=== PATIENT | male | born 1935 | race Caucasian/White ===

== ENCOUNTER 2016-12-27 22:09 | Inpatient (IN) | payer MEDICARE, BC ==
--- NOTE | 2016-12-27 23:22 | EDM.PDOC ---
ED HISTORY OF PRESENT ILLNESS - General Chief Complaint: Respiratory Problem Stated Complaint: [facility] Time Seen by Provider: 12/27/16 22:29 Source of Information: Reports: Patient, Family (), RN notes reviewed History Limitations: Reports: No limitations - History of Present Illness INITIAL COMMENTS - FREE TEXT/NARRATIVE: The patient states that he has had a cough productive of a cream-colored sputum all day today. He has been feeling short of breath. He developed generalized weakness this afternoon, chills around 17:30, but no fever. He then developed nausea with emesis around 19:00 to 19:30. No recent constipation, diarrhea, or urinary symptoms. He denies abdominal pain and chest pain. The patient was seen by his Supervisor [employer], Dr. Stella Riley, yesterday and was told that everything is okay. The patient is up to date on his vaccines, including influenza and pneumonia vaccines. - Related Data Allergies/ADRs: Allergies Allergy/AdvReac Type Severity Reaction Status Date / Time No Known Allergies Allergy Verified 11/20/16 16:39 Home Meds: Home Meds Acetaminophen/Diphenhydramine [Tylenol Pm Ex-Strength Caplet] 2 tab PO BEDTIME 02/27/15 [History] Albuterol [Ventolin HFA] 1 puff INH BID 02/27/15 [History] Carvedilol [Coreg] 12.5 mg PO BID 02/27/15 [History] Ezetimibe [Zetia] 10 mg PO DAILY 02/27/15 [History] Omeprazole 20 mg PO DAILY 02/27/15 [History] Pravastatin [Pravachol] 40 mg PO DAILY 02/27/15 [History] Albuterol Sulfate [Proair Hfa] 2 puff IH DAILY PRN 11/20/16 [History] Budesonide [Pulmicort] 0.5 mg IH BID 11/20/16 [History] Flecainide [Tambocor] 100 mg PO BID 11/20/16 [History] Warfarin [Coumadin] 1 mg PO SUTUWETHSA 11/20/16 [History] Warfarin [Coumadin] 2.5 mg PO MOFR 11/20/16 [History] Fluticasone Propionate [Flovent] 2 puff INH DAILY 12/27/16 [History] Umeclidinium [place] [Incruse Ellipta] 62.5 mcg PO DAILY 12/27/16 [History] Past Medical History HEENT History: Reports: Allergic rhinitis Other HEENT History: Wears glasss. Cardiovascular History: Reports: Afib, High cholesterol Gastrointestinal History: Reports: GERD Oncologic (Cancer) History: Reports: Lung - Past Surgical History Respiratory Surgical History: Reports: Lung Resection (Left upper lobectomy around 2004) Social & Family History - Tobacco Use Smoking Status *Q: Former Smoker Years of Tobacco use: 56 Packs/Tins Daily: 2 Month Tobacco Last Used: 2004 - Caffeine Use Caffeine Use: Reports: None - Alcohol Use Alcohol Use History: No - Recreational Drug Use Recreational Drug Use: No - Living Situation & Occupation Living situation: Reports: , with spouse Occupation: retired ED ROS GENERAL - Review of Systems Review Of Systems: See Below Constitutional: Reports: no symptoms HEENT: Reports: No symptoms Respiratory: Reports: No Symptoms Cardiovascular: Reports: No symptoms Endocrine: Reports: no symptoms GI/Abdominal: Reports: No symptoms : Reports: no symptoms Musculoskeletal: Reports: no symptoms Skin: Reports: no symptoms Neurological: Reports: No Symptoms Psychiatric: Reports: No symptoms Hematologic/Lymphatic: Reports: no symptoms Immunologic: Reports: no symptoms ED EXAM, GENERAL - Physical Exam Exam: See Below Exam Limited By: No limitations General Appearance: alert, WD/WN, no apparent distress, other (Appears tired. Falls asleep frequently.) Eye Exam: bilateral eye: EOMI, normal inspection Ears: normal external exam, hearing grossly normal Ear Exam: bilateral ear: auricle normal Nose: normal inspection, no blood Throat/Mouth: Normal inspection, Normal lips, Normal voice, No airway compromise Head: atraumatic, normocephalic Neck: normal inspection, full range of motion Respiratory/Chest: no respiratory distress, no accessory muscle use, chest non- tender, decreased breath sounds, rhonchi (bibasilar). No: crackles, wheezing Cardiovascular: normal peripheral pulses, regular rate, rhythm, no edema, no gallop, no JVD, no murmur, no rub, tachycardia Peripheral Pulses: 4+: radial (L), radial (R) GI/Abdominal: normal bowel sounds, soft, non tender, no organomegaly, no distention, no abnormal bruit, no mass Back Exam: normal inspection, full range of motion, NT Extremities: normal inspection, normal range of motion, non-tender, normal capillary refill, no pedal edema Neurological: alert, oriented, normal cognition, no motor/sensory deficits Psychiatric: normal affect Skin Exam: Warm, Dry, Intact, Normal color, No rash Lymphatic: no adenopathy EKG INTERPRETATION EKG Date: 12/27/16 Time: 23:11 Rhythm: a-flutter (A-fib/flutter, mostly 2:1) Rate (beats/min): 125 [place]: LAD-left axis deviation P-wave: present QRS: other (RBBB and LAFB) ST-T: normal QT: prolonged (QTc 528 ms) Comparison: no change (11/20/2016) Course - Vital Signs Last Recorded V/S: Last Vital Signs Temp 36.7 C 12/27/16 22:18 Pulse 118 H 12/27/16 23:52 Resp 22 H 12/27/16 22:18 BP 127/94 H 12/27/16 23:52 Pulse Ox 88 L 12/27/16 22:18 - Orders/Labs/Meds Orders: Active Orders 24 hr Category Date Time Status EKG Documentation Completion [RC] STAT Care 12/27/16 22:59 Active Chest 2V [CR] Stat Exams 12/27/16 22:48 Taken CULTURE BLOOD [BC] Stat Lab 12/27/16 23:22 Received CULTURE BLOOD [BC] Stat Lab 12/27/16 23:35 Received Diltiazem [Cardizem] 100 mg Med 12/27/16 23:30 Active Sodium Chloride 0.9% [Normal Saline] 100 ml IV TITRATE Sodium Chloride 0.9% [Normal Saline] 1,000 ml Med 12/27/16 23:45 Active IV ASDIRECTED Medication Orders Diltiazem HCl 100 mg/ Sodium (Chloride) 100 mls @ 10 mls/hr IV TITRATE ANIKA; 10 MG/HR PRN Reason: Protocol Last Admin: 12/27/16 23:52 Dose: 10 mg/hr, 10 mls/hr Sodium Chloride (Normal Saline) 1,000 mls @ 100 mls/hr IV ASDIRECTED ANIKA Last Admin: 12/27/16 23:51 Dose: 100 mls/hr Labs: Laboratory Tests 12/27/16 12/27/16 12/27/16 Range/Units 22:58 23:22 23:22 WBC 15.81 H (4.23-9.07) K/mm3 RBC 5.25 (4.63-6.08) M/mm3 Hgb 15.4 (13.7-17.5) gm/L Hct 46.5 (40.1-51.0) % MCV 88.6 (79.0-92.2) fl MCH 29.3 (25.7-32.2) pg MCHC 33.1 (32.2-35.5) g/dl RDW Std Deviation 47.6 H (35.1-43.9) fL Plt Count 190 (163-337) K/mm3 MPV 8.4 L (9.4-12.3) fl Neutrophils % (Manual) 76 H (40-60) % Band Neutrophils % 9 (0-10) % Lymphocytes % (Manual) 5 L (20-40) % Atypical Lymphs % 3 % Monocytes % (Manual) 7 (2-10) % Eosinophils % (Manual) 0 L (0.8-7.0) % Basophils % (Manual) 0 L (0.2-1.2) Toxic Granulation Few Platelet Estimate Adequate Plt Morphology Comment Normal RBC Morph Comment Normal PT (8.0-13.0) SECONDS INR Puncture Site Lt radial ABG pH 7.43 (7.35-7.45) ABG pCO2 34.6 L (35.0-45.0) mmHg ABG pO2 52.0 L (80.0-100.0) mmHg ABG HCO3 22.7 (22.0-26.0) meq/L ABG O2 Saturation 90.3 L (96.0-97.0) % ABG Base Excess -0.4 (-2-2.0) Henry Test Positive O2 Delivery Device Room air Sodium 138 (136-145) mEq/L Potassium 4.1 (3.5-5.1) mEq/L Chloride 103 (98-107) mEq/L Carbon Dioxide 26 (21-32) mEq/L Anion Gap 13.1 (5-15) BUN 18 (7-18) mg/dL Creatinine 1.4 H (0.7-1.3) mg/dL Est Cr Clr Drug Dosing 46.96 mL/min Estimated GFR (MDRD) 49 (>60) mL/min BUN/Creatinine Ratio 12.9 L (14-18) Glucose 121 H (83-115) mg/dL Lactic Acid (0.4-2.0) mmol/L Calcium 9.2 (8.5-10.1) mg/dL Total Bilirubin 0.5 (0.2-1.0) mg/dL AST 21 (15-37) U/L ALT 24 (16-63) U/L Alkaline Phosphatase 105 (46-116) U/L Troponin I < 0.017 (0.00-0.056) ng/mL C-Reactive Protein (<1.0) mg/dL B-Natriuretic Peptide (0-100) pg/mL Total Protein 7.9 (6.4-8.2) g/dl Albumin 4.1 (3.4-5.0) g/dl Globulin 3.8 gm/dL Albumin/Globulin Ratio 1.1 (1-2) Urine Color (Yellow) Urine Appearance (Clear) Urine pH (5.0-8.0) Ur Specific [place] (1.005-1.030) Urine Protein (Negative) Urine Glucose (UA) (Negative) Urine Ketones (Negative) Urine Occult Blood (Negative) Urine Nitrite (Negative) Urine Bilirubin (Negative) Urine Urobilinogen (0.2-1.0) Ur Leukocyte Esterase (Negative) Urine RBC (0-5) /hpf Urine WBC (0-5) /hpf Ur Epithelial Cells (0-5) /hpf Urine Bacteria (FEW) /hpf Hyaline Casts (0-5) /lpf Urine Mucus (FEW) /hpf Urine Yeast (NOT SEEN) 12/27/16 12/27/16 12/27/16 Range/Units 23:22 23:22 23:22 WBC (4.23-9.07) K/mm3 RBC (4.63-6.08) M/mm3 Hgb (13.7-17.5) gm/L Hct (40.1-51.0) % MCV (79.0-92.2) fl MCH (25.7-32.2) pg MCHC (32.2-35.5) g/dl RDW Std Deviation (35.1-43.9) fL Plt Count (163-337) K/mm3 MPV (9.4-12.3) fl Neutrophils % (Manual) (40-60) % Band Neutrophils % (0-10) % Lymphocytes % (Manual) (20-40) % Atypical Lymphs % % Monocytes % (Manual) (2-10) % Eosinophils % (Manual) (0.8-7.0) % Basophils % (Manual) (0.2-1.2) Toxic Granulation Platelet Estimate Plt Morphology Comment RBC Morph Comment PT 22.2 H (8.0-13.0) SECONDS INR 1.95 Puncture Site ABG pH (7.35-7.45) ABG pCO2 (35.0-45.0) mmHg ABG pO2 (80.0-100.0) mmHg ABG HCO3 (22.0-26.0) meq/L ABG O2 Saturation (96.0-97.0) % ABG Base Excess (-2-2.0) Henry Test O2 Delivery Device Sodium (136-145) mEq/L Potassium (3.5-5.1) mEq/L Chloride (98-107) mEq/L Carbon Dioxide (21-32) mEq/L Anion Gap (5-15) BUN (7-18) mg/dL Creatinine (0.7-1.3) mg/dL Est Cr Clr Drug Dosing mL/min Estimated GFR (MDRD) (>60) mL/min BUN/Creatinine Ratio (14-18) Glucose (83-115) mg/dL Lactic Acid (0.4-2.0) mmol/L Calcium (8.5-10.1) mg/dL Total Bilirubin (0.2-1.0) mg/dL AST (15-37) U/L ALT (16-63) U/L Alkaline Phosphatase (46-116) U/L Troponin I (0.00-0.056) ng/mL C-Reactive Protein 1.6 H* (<1.0) mg/dL B-Natriuretic Peptide 198 H (0-100) pg/mL Total Protein (6.4-8.2) g/dl Albumin (3.4-5.0) g/dl Globulin gm/dL Albumin/Globulin Ratio (1-2) Urine Color (Yellow) Urine Appearance (Clear) Urine pH (5.0-8.0) Ur Specific [place] (1.005-1.030) Urine Protein (Negative) Urine Glucose (UA) (Negative) Urine Ketones (Negative) Urine Occult Blood (Negative) Urine Nitrite (Negative) Urine Bilirubin (Negative) Urine Urobilinogen (0.2-1.0) Ur Leukocyte Esterase (Negative) Urine RBC (0-5) /hpf Urine WBC (0-5) /hpf Ur Epithelial Cells (0-5) /hpf Urine Bacteria (FEW) /hpf Hyaline Casts (0-5) /lpf Urine Mucus (FEW) /hpf Urine Yeast (NOT SEEN) 12/27/16 12/28/16 Range/Units 23:22 00:35 WBC (4.23-9.07) K/mm3 RBC (4.63-6.08) M/mm3 Hgb (13.7-17.5) gm/L Hct (40.1-51.0) % MCV (79.0-92.2) fl MCH (25.7-32.2) pg MCHC (32.2-35.5) g/dl RDW Std Deviation (35.1-43.9) fL Plt Count (163-337) K/mm3 MPV (9.4-12.3) fl Neutrophils % (Manual) (40-60) % Band Neutrophils % (0-10) % Lymphocytes % (Manual) (20-40) % Atypical Lymphs % % Monocytes % (Manual) (2-10) % Eosinophils % (Manual) (0.8-7.0) % Basophils % (Manual) (0.2-1.2) Toxic Granulation Platelet Estimate Plt Morphology Comment RBC Morph Comment PT (8.0-13.0) SECONDS INR Puncture Site ABG pH (7.35-7.45) ABG pCO2 (35.0-45.0) mmHg ABG pO2 (80.0-100.0) mmHg ABG HCO3 (22.0-26.0) meq/L ABG O2 Saturation (96.0-97.0) % ABG Base Excess (-2-2.0) [place] Test O2 Delivery Device Sodium (136-145) mEq/L Potassium (3.5-5.1) mEq/L Chloride (98-107) mEq/L Carbon Dioxide (21-32) mEq/L Anion Gap (5-15) BUN (7-18) mg/dL Creatinine (0.7-1.3) mg/dL Est Cr Clr Drug Dosing mL/min Estimated GFR (MDRD) (>60) mL/min BUN/Creatinine Ratio (14-18) Glucose (83-115) mg/dL Lactic Acid 0.8 (0.4-2.0) mmol/L Calcium (8.5-10.1) mg/dL Total Bilirubin (0.2-1.0) mg/dL AST (15-37) U/L ALT (16-63) U/L Alkaline Phosphatase (46-116) U/L Troponin I (0.00-0.056) ng/mL C-Reactive Protein (<1.0) mg/dL B-Natriuretic Peptide (0-100) pg/mL Total Protein (6.4-8.2) g/dl Albumin (3.4-5.0) g/dl Globulin gm/dL Albumin/Globulin Ratio (1-2) Urine Color Yellow (Yellow) Urine Appearance Clear (Clear) Urine pH 6.0 (5.0-8.0) Ur Specific [place] 1.025 (1.005-1.030) Urine Protein 2+ H (Negative) Urine Glucose (UA) Negative (Negative) Urine Ketones Negative (Negative) Urine Occult Blood 2+ H (Negative) Urine Nitrite Negative (Negative) Urine Bilirubin Negative (Negative) Urine Urobilinogen 0.2 (0.2-1.0) Ur Leukocyte Esterase Negative (Negative) Urine RBC 5-10 H (0-5) /hpf Urine WBC Not seen (0-5) /hpf Ur Epithelial Cells 0-5 (0-5) /hpf Urine Bacteria Few (FEW) /hpf Hyaline Casts 0-5 (0-5) /lpf Urine Mucus Not seen (FEW) /hpf Urine Yeast Not seen (NOT SEEN) Meds: Medications Generic Name Dose Route Start Last Admin Trade Name Freq PRN Reason Stop Dose Admin Diltiazem HCl 100 mg/ Sodium 100 mls @ 10 mls/hr 12/27/16 23:30 12/27/16 23: 52 Chloride IV 10 mg/hr TITRATE ANIKA 10 mls/hr Protocol Administration 10 MG/HR Sodium Chloride 1,000 mls @ 100 mls/hr 12/27/16 23:45 12/27/16 23:51 Normal Saline IV 100 mls/hr ASDIRECTED ANIKA Administration Discontinued Medications Generic Name Dose Route Start Last Admin Trade Name Freq PRN Reason Stop Dose Admin Diltiazem HCl 10 mg 12/27/16 23:25 12/27/16 23:48 Diltiazem IVPUSH 12/27/16 23:26 10 mg ONETIME STA Administration Azithromycin 500 mg/ Sodium 250 mls @ 250 mls/hr 12/27/16 23:56 12/28/16 00: 44 Chloride IV 12/28/16 00:55 250 mls/hr ONETIME ONE Administration Ceftriaxone Sodium 2 gm/ 100 mls @ 200 mls/hr 12/27/16 23:54 12/28/16 00:11 Sodium Chloride IV 12/28/16 00:23 200 mls/hr ONETIME ONE Administration - Radiology Interpretation Free Text/Narrative:: Two-view chest radiograph reviewed. Cardiac silhouette is within normal limits. No pulmonary vascular congestion. No pleural effusions. No pneumothorax. There appears to be an infiltrate at the left base and, although this could be scarring or atelectasis, as a less intense opacity is seen on a prior portable chest radiograph dated 11/20/2016. Formal read per the Radiologist pending. - Re-Assessments/Exams Free Text/Narrative Re-Assessment/Exam: 12/27/16 23:30 The patient's ECG appears to demonstrate atrial fibrillation/flutter, mostly 2:1 , at 125 beats per minute. I have ordered a Cardizem IVP 10 mg and a Cardizem drip at 10 mg per hour. 12/27/16 23:37 The patient's ABG indicates a combined respiratory alkalosis and metabolic acidosis. 12/27/16 23:54 Given the possible left lower lobe pulmonary infiltrate, I will start the patient on Rocephin and azithromycin. Levaquin is contraindicated, as the patient is on flecainide, and his QTc is already prolonged. 12/28/16 00:09 The patient's WBC count is elevated at 15.81 with 9% bandemia. This is consistent with a bacterial infection. 12/28/16 01:16 Test results discussed with the patient and his . The patient most likely has left lower lobe pneumonia, and is also an interferential/atrial flutter. His heart rate is responding nicely to the Cardizem, however, the patient will require ICU admission. They're agreeable. 12/28/16 01:[address] Sanders. He agrees to admitting the patient to the ICU. He asks that I write bridge orders. Departure - Departure Time of Disposition: 01:18 Disposition: Admitted As Inpatient 68 Condition: fair Clinical Impression: Left lower lobe pneumonia, Atrial fibrillation and flutter - My Orders Last 24 Hours: My Active Orders 12/27/16 22:48 Chest 2V [CR] Stat 12/27/16 22:59 EKG Documentation Completion [RC] STAT 12/27/16 23:22 CULTURE BLOOD [BC] Stat 12/27/16 23:30 Diltiazem [Cardizem] 100 mg Sodium Chloride 0.9% [Normal Saline] 100 ml IV TITRATE 12/27/16 23:35 CULTURE BLOOD [BC] Stat 12/27/16 23:45 Sodium Chloride 0.9% [Normal Saline] 1,000 ml IV ASDIRECTED - Assessment/Plan Last 24 Hours: My Active Orders 12/27/16 22:48 Chest 2V [CR] Stat 12/27/16 22:59 EKG Documentation Completion [RC] STAT 12/27/16 23:22 CULTURE BLOOD [BC] Stat 12/27/16 23:30 Diltiazem [Cardizem] 100 mg Sodium Chloride 0.9% [Normal Saline] 100 ml IV TITRATE 12/27/16 23:35 CULTURE BLOOD [BC] Stat 12/27/16 23:45 Sodium Chloride 0.9% [Normal Saline] 1,000 ml IV ASDIRECTED
[2016-12-27] MEDS ORDERED: Diltiazem 25 MG/5 ML SDV IVPUSH STA (23:25)
[2016-12-27] MEDS ORDERED: Diltiazem 100 MG in Sodium Chloride 0.9% 100 ML IV SCH (23:30)
[2016-12-27] MEDS ORDERED: Sodium Chloride 0.9% 1,000 ML IV SCH (23:45)
[2016-12-27] MEDS ORDERED: cefTRIAXone 2 GM in Sodium Chloride 0.9% 100 ML IV ONE (23:54)
[2016-12-27] MEDS ORDERED: Azithromycin 500 MG in Sodium Chloride 0.9% 250 ML IV ONE (23:56)
--- NOTE | 2016-12-28 07:00 | CR ---
Chest: Two views of the chest were obtained. Comparison: Previous chest x-ray of 11/20/16. Increasing density within the left base from prior exam. Lungs otherwise are clear. Heart size and mediastinum are normal. Bony structures are unremarkable for the patient's age. Impression: 1. Increased density within the left lung base. Differential includes pneumonia as well as aspiration. Diagnostic code #3
--- NOTE | 2016-12-28 07:03 | PCM.HP ---
H&P History of Present Illness - General Date of Service: 12/28/16 Admit Problem/Dx: Admission Diagnosis/Problem Admission Diagnosis/Problem Atrial flutter Source of Information: Patient, Family, Old records, Provider, RN notes reviewed History Limitations: Reports: No limitations - History of Present Illness Initial Comments - Free Text/Narative: This is a 81 yo elderly white male with past medical hx/o AR, Chronic Atrial Fibrillation on Warfarin, HLD, GERD and Hx/o Left Upper Lung Lobectomy in 2004 who comes in with complaints of shortness of breath associated with productive cough that is cream-like in colored. He also admits to some generalized weakness , nausea and vomiting but w/o fever or chills. Patient follows Dr. Riley for his lung care. His most recent epsiode of pneumonia was back around this past . He is current on his shots to include influenza and pneumoccocal vaccines. On presentation to ED patient was found in afib-rvr with heart rate as high as 130s. Her initial work up in ED shows a CBC remarkable for WBC 15.81 with 9% Bands. His INR is 1.95. His chemistry is significant for Cr 1.4, BS 121, CRP 1.6 and BNP 198. UA is unimpressive for UTI. His CXR shows increased opacification at the left lung base. Patient is full code. - Related Data Allergies/Adverse Reactions: Allergies Allergy/AdvReac Type Severity Reaction Status Date / Time No Known Allergies Allergy Verified 11/20/16 16:39 Home Medications: Home Meds Acetaminophen/Diphenhydramine [Tylenol Pm Ex-Strength Caplet] 2 tab PO BEDTIME 02/27/15 [History] Albuterol [Ventolin HFA] 1 puff INH BID 02/27/15 [History] Carvedilol [Coreg] 12.5 mg PO BID 02/27/15 [History] Ezetimibe [Zetia] 10 mg PO DAILY 02/27/15 [History] Omeprazole 20 mg PO DAILY 02/27/15 [History] Pravastatin [Pravachol] 40 mg PO DAILY 02/27/15 [History] Albuterol Sulfate [Proair Hfa] 2 puff IH DAILY PRN 11/20/16 [History] Budesonide [Pulmicort] 0.5 mg IH BID 11/20/16 [History] Flecainide [Tambocor] 100 mg PO BID 11/20/16 [History] Warfarin [Coumadin] 1 mg PO SUTUWETHSA 11/20/16 [History] Warfarin [Coumadin] 2.5 mg PO MOFR 11/20/16 [History] Fluticasone Propionate [Flovent] 2 puff INH DAILY 12/27/16 [History] Umeclidinium [place] [Incruse Ellipta] 62.5 mcg PO DAILY 12/27/16 [History] Past Medical History HEENT History: Reports: Allergic rhinitis Other HEENT History: Wears glasss. Cardiovascular History: Reports: Afib, High cholesterol Gastrointestinal History: Reports: GERD Oncologic (Cancer) History: Reports: Lung - Infectious Disease History Infectious Disease History: Reports: Chicken pox, Measles - Past Surgical History Respiratory Surgical History: Reports: Lung Resection Other Respiratory Surgeries/Procedures: L upper lobectomy Social & Family History - Family History Family Medical History: Noncontributory - Tobacco Use Smoking Status *Q: Former Smoker Years of Tobacco use: 54 Packs/Tins Daily: 2 Used Tobacco, but Quit: Yes Month Tobacco Last Used: 2004 Second Hand Smoke Exposure: Yes - Caffeine Use Caffeine Use: Reports: Coffee - Recreational Drug Use Recreational Drug Use: No - Living Situation & Occupation Living situation: Reports: , with spouse Occupation: retired H&P Review of Systems - Review of Systems: Review Of Systems: ROS reveals no pertinent complaints other than HPI. Exam - Exam Exam: See Below - Vital Signs Vital Signs: Last Vital Signs Temp 36.8 C 12/28/16 02:38 Pulse 118 H 12/27/16 23:52 Resp 25 H 12/28/16 07:00 BP 95/48 L 12/28/16 07:00 Pulse Ox 98 12/28/16 07:00 Weight: 93.758 kg - Exam General: alert, oriented, cooperative. No: mild distress HEENT: Conjunctiva clear, EACs clear, EOMI, Hearing intact, Mucosa moist & pink , Nares patent, Normal nasal septum, Posterior pharynx clear, Pupils equal, Pupils reactive Neck: supple, trachea midline, 2+ carotid pulse wo bruit, full range of motion Lungs: Normal respiratory effort, Decreased breath sounds Cardiovascular: irregular rhythm Abdomen: normal bowel sounds, soft. No: organomegaly (Male) Exam: Deferred Rectal (Males) Exam: Deferred Back Exam: normal inspection, decreased range of motion Extremities: normal inspection, normal pulses. No: clubbing, cyanosis, calf tenderness, edema Peripheral Pulses: 2+: dorsalis pedis (L), dorsalis pedis (R) Skin: warm, dry, intact Neuro Extensive - Mental Status: oriented x3, normal cognition, memory intact Neuro Extensive - Motor, Sensory, Reflexes: CN II-XII intact, normal gait Psychiatric: alert, normal affect, normal mood - Patient Data Result Diagrams: 12/27/16 23:22 12/27/16 23:22 EKG INTERPRETATION EKG Date: 12/27/16 Time: 23:11 Rhythm: other (Afib/flutter) Rate (beats/min): 125 [place]: LAD-left axis deviation P-wave: present QRS: RBBB ST-T: normal QT: prolonged Comparison: no change (11/25/2016) *Q Meaningful Use (ADM) - VTE *Q VTE Criteria *Q: - Stroke *Q Stroke Criteria *Q: - AMI *Q AMI Criteria *Q: Problem List Initiated/Reviewed/Updated: Yes Orders Last 24hrs: Active Orders 24 hr Category Date Time Status Patient Status [ADT] Routine ADT 12/28/16 01:53 Active Up With Assistance [RC] ASDIRECTED Care 12/28/16 01:52 Active Regular Diet [DIET] Diet 12/28/16 Breakfast Active Code Status [Resuscitation Status] Routine Resus Stat 12/28/16 01:52 Ordered Medication Orders Diltiazem HCl 100 mg/ Sodium (Chloride) 100 mls @ 10 mls/hr IV TITRATE ANIKA; 10 MG/HR PRN Reason: Protocol Last Titration: 12/28/16 05:59 Dose: 0 mg/hr, 0 mls/hr Titration: 12/28/16 02:55 Dose: 5 mg/hr, 5 mls/hr Admin: 12/27/16 23:52 Dose: 10 mg/hr, 10 mls/hr Sodium Chloride (Normal Saline) 1,000 mls @ 100 mls/hr IV ASDIRECTED ANIKA Last Admin: 12/27/16 23:51 Dose: 100 mls/hr Assessment/Plan Comment:: Assessment/Plan: C-Hpk-M-flutter with RVR - 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
[2016-12-28] MEDS ORDERED: Acetaminophen 325 MG Tab PO PRN (07:31)
[2016-12-28] MEDS ORDERED: HYDROmorphone 0.5 MG/0.5 ML Syringe IVPUSH PRN (07:31)
[2016-12-28] MEDS ORDERED: Ondansetron 4 MG/2 ML SDV IV PRN (07:31)
[2016-12-28] MEDS ORDERED: Promethazine 12.5 MG in Sodium Chloride 0.9% 50 ML IV PRN (07:31)
[2016-12-28] MEDS ORDERED: Polyethylene Glycol 3350 Powder 17 GM Packet PO PRN (07:31)
[2016-12-28] MEDS ORDERED: LORazepam 2 MG/ML MDV IV PRN (07:31)
[2016-12-28] MEDS ORDERED: Temazepam 15 MG Cap PO PRN (07:31)
[2016-12-28] MEDS ORDERED: Albuterol/Ipratropium 3.0-0.5 MG/3 ML Neb Soln NEB PRN (07:31)
[2016-12-28] MEDS ORDERED: Albuterol 6.7 GM Inhaler INH PRN (07:55)
[2016-12-28] MEDS ORDERED: Non-Formulary Medication 1 Each (Fluticasone Propionate [Flovent] 2 PUFF) INH SCH (09:00)
[2016-12-28] MEDS ORDERED: Non-Formulary Medication 1 Each (Albuterol 1 PUFF) INH SCH (09:00)
[2016-12-28] MEDS: guaiFENesin 600 MG Tab.ER PO SCH ×2 (09:18→20:27)
[2016-12-28] MEDS: Carvedilol 12.5 MG Tab PO SCH ×2 (09:18→20:28)
[2016-12-28] MEDS: Flecainide 50 MG Tab PO SCH ×2 (09:18→20:27)
[2016-12-28] MEDS: Simvastatin 20 MG Tab PO SCH (09:20)
[2016-12-28] MEDS: UMECLIDINIUM BROMIDE 62.5 MCG INH SCH (09:21)
[2016-12-28] MEDS: Ezetimibe 10 MG Tab PO SCH (09:21)
[2016-12-28] MEDS: Pantoprazole 40 MG Tab.CR PO SCH ×2 (09:22→20:26)
[2016-12-28] MEDS: Budesonide 0.5 MG/2 ML Neb Susp INH SCH ×2 (10:19→20:54)
[2016-12-28] MEDS: cefTRIAXone 1 GM in Sodium Chloride 0.9% 100 ML IV SCH (17:09)
[2016-12-28] MEDS: Azithromycin 500 MG in Sodium Chloride 0.9% 250 ML IV SCH (17:10)
--- NOTE | 2016-12-28 17:44 | PCM.PN ---
- General Info Date of Service: 12/28/16 Functional Status: Reports: tolerating diet, urinating - Review of Systems General: Reports: Weakness HEENT: Reports: no symptoms Pulmonary: Reports: shortness of breath Cardiovascular: Reports: No Symptoms Gastrointestinal: Reports: No symptoms Genitourinary: Reports: no symptoms Musculoskeletal: Reports: no symptoms Skin: Reports: no symptoms Neurological: Reports: No Symptoms Psychiatric: Reports: no symptoms - Patient Data Vitals - most recent: Last Vital Signs Temp 36.5 C 12/28/16 11:31 Pulse 66 12/28/16 09:18 Resp 14 12/28/16 11:31 BP 106/76 12/28/16 11:31 Pulse Ox 96 12/28/16 11:31 Weight - most recent: 93.758 kg I&O - last 24 hours: Intake & Output 12/28/16 12/28/16 12/28/16 06:59 14:59 22:59 Intake Total 220 675 Output Total 150 Balance 220 525 Lab Results last 24 hrs: Laboratory Results - last 24 hr 12/28/16 Range/Units 09:24 C-Reactive Protein 11.8 H* (<1.0) mg/dL Med Orders - Current: Current Medications Acetaminophen (Tylenol) 650 mg PO Q4H PRN PRN Reason: Pain (Mild 1-3)/fever Acetaminophen/Hydrocodone Bitart ([place] 325-5 Mg) 1 tab PO Q4H PRN PRN Reason: Pain (moderate 4-6) Albuterol (Proventil Hfa) 0 gm INH DAILY PRN PRN Reason: Dyspnea Albuterol/Ipratropium (Duoneb 3.0-0.5 Mg/3 Ml) 3 ml NEB Q4H PRN PRN Reason: Shortness Of Breath/wheezing Bisacodyl (Dulcolax) 5 mg PO DAILY PRN PRN Reason: Constipation Budesonide (Pulmicort) 0.5 mg INH BID [facility] Last Admin: 12/28/16 10:19 Dose: 0.5 mg Carvedilol (Coreg) 12.5 mg PO BID [facility] Last Admin: 12/28/16 09:18 Dose: Not Given Ezetimibe (Zetia) 10 mg PO DAILY [facility] Last Admin: 12/28/16 09:21 Dose: 10 mg Flecainide Acetate (Tambocor) 100 mg PO BID [facility] Last Admin: 12/28/16 09:18 Dose: 100 mg Guaifenesin (Mucinex) 600 mg PO BID [facility] Last Admin: 12/28/16 09:18 Dose: 600 mg Hydromorphone HCl (Dilaudid) 0.25 mg IVPUSH Q2H PRN PRN Reason: Pain (severe 7-10) Diltiazem HCl 100 mg/ Sodium (Chloride) 100 mls @ 10 mls/hr IV TITRATE ANIKA; 10 MG/HR PRN Reason: Protocol Last Titration: 12/28/16 05:59 Dose: 0 mg/hr, 0 mls/hr Sodium Chloride (Normal Saline) 1,000 mls @ 100 mls/hr IV ASDIRECTED [facility] Last Admin: 12/27/16 23:51 Dose: 100 mls/hr Promethazine HCl 12.5 mg/ (Sodium Chloride) 50.5 mls @ 100 mls/hr IV Q6H PRN PRN Reason: Nausea/Vomiting Azithromycin 500 mg/ Sodium (Chloride) 250 mls @ 250 mls/hr IV Q24H [facility] Last Admin: 12/28/16 17:10 Dose: 250 mls/hr Ceftriaxone Sodium 1 gm/ (Sodium Chloride) 100 mls @ 200 mls/hr IV Q24H [facility] Last Admin: 12/28/16 17:09 Dose: 200 mls/hr Lorazepam (Ativan) 0.5 mg IV Q6H PRN PRN Reason: Anxiety Ondansetron HCl (Zofran) 4 mg IV Q6H PRN PRN Reason: Nausea/Vomiting Pantoprazole Sodium (Protonix) 40 mg PO BID [facility] Last Admin: 12/28/16 09:22 Dose: 40 mg Umeclidinium [place] [Incruse Ellipta] 62.5 Mcg 0 each INH DAILY [facility] Last Admin: 12/28/16 09:21 Dose: Not Given Polyethylene Glycol (Miralax) 17 gm PO DAILY PRN PRN Reason: Constipation Senna/Docusate Sodium (Senna Plus) 1 tab PO BID PRN PRN Reason: Constipation Simvastatin (Zocor) 40 mg PO DAILY [facility] Last Admin: 12/28/16 09:20 Dose: 40 mg Temazepam (Restoril) 15 mg PO BEDTIME PRN PRN Reason: Sleep Warfarin Sodium (Coumadin) 1 mg PO SUTUWETHSA ANIKA Warfarin Sodium (Coumadin) 2.5 mg PO MOFR ANIKA Discontinued Medications Diltiazem HCl (Diltiazem) 10 mg IVPUSH ONETIME STA Stop: 12/27/16 23:26 Last Admin: 12/27/16 23:48 Dose: 10 mg Azithromycin 500 mg/ Sodium (Chloride) 250 mls @ 250 mls/hr IV ONETIME ONE Stop: 12/28/16 00:55 Last Admin: 12/28/16 00:44 Dose: 250 mls/hr Ceftriaxone Sodium 2 gm/ (Sodium Chloride) 100 mls @ 200 mls/hr IV ONETIME ONE Stop: 12/28/16 00:23 Last Admin: 12/28/16 00:11 Dose: 200 mls/hr Non-Formulary Medication (Acetaminophen/Diphenhydramine) 2 tab PO BEDTIME ANIKA Non-Formulary Medication (Albuterol) 1 puff INH BID [facility]IKA Last Admin: 12/28/16 17:05 Dose: Not Given Non-Formulary Medication (Fluticasone Propionate [Flovent]) 2 puff INH DAILY [facility] Last Admin: 12/28/16 17:05 Dose: Not Given - Exam Quality Assessment: supplemental oxygen, DVT prophylaxis General: alert, oriented, cooperative, no acute distress HEENT: Pupils equal, Pupils reactive, EOMI Neck: supple, trachea midline, no JVD Lungs: Decreased breath sounds, Wheezing (L>R) Cardiovascular: Regular Rate Abdomen: bowel sounds present, soft, no tenderness, no distension (Male) Exam: Deferred Back Exam: normal inspection Extremities: normal pulses Skin: warm Neurological: no new focal deficit, normal speech Psy/Mental Status: alert, normal affect, normal mood - Problem List Review Problem List Initiated/Reviewed/Updated: Yes - My Orders Last 24 Hours: My Active Orders 12/28/16 12:47 Consult to Speech Language Pathology [[employer] Evaluation and Treatment] [CONS] Routine 12/28/16 14:30 Azithromycin [Zithromax] 500 mg Sodium Chloride 0.9% [Normal Saline] 250 ml IV Q24H cefTRIAXone [Rocephin] 1 gm Sodium Chloride 0.9% [Normal Saline] 100 ml IV Q24H - Plan Plan:: Assessment/Plan: G-Lkc-X-flutter with RVR, resolved - Cardizem drip, stopped - Continue current rate control medications - Daily INR with warfarin CAP-Left Lower Lobe PNA - Risk factor: GERD - Continue IV Azith/Rocephin - PPI BID - Incentive Spirometry as directed - Serial CXR Leukocytosis - 2/2 Above - Treat underlying cause Chronic: GERD HLD Hx/o Lung Cancer S/p Lobectomy Plan: Transfer to [facility] with Tele on 12/29/16 Routine AM Labs Resume Home Meds PT/OT/RT consult SW/CM for d/c planning Aspiration Precautions Code Status:1
[2016-12-28] MEDS ORDERED: ACETAMINOPHEN PO SCH (21:00)
[2016-12-28] MEDS ORDERED: DIPHENHYDRAMINE PO SCH (21:00)
[2016-12-29] MEDS: Ezetimibe 10 MG Tab PO SCH (08:02)
[2016-12-29] MEDS: Carvedilol 12.5 MG Tab PO SCH ×2 (08:02→20:35)
[2016-12-29] MEDS: Flecainide 50 MG Tab PO SCH ×2 (08:02→20:35)
[2016-12-29] MEDS: guaiFENesin 600 MG Tab.ER PO SCH ×2 (08:02→20:35)
[2016-12-29] MEDS: UMECLIDINIUM BROMIDE 62.5 MCG INH SCH (08:03)
[2016-12-29] MEDS: Simvastatin 20 MG Tab PO SCH (08:03)
[2016-12-29] MEDS: Pantoprazole 40 MG Tab.CR PO SCH ×2 (08:03→20:35)
[2016-12-29] MEDS: Budesonide 0.5 MG/2 ML Neb Susp INH SCH ×2 (09:09→21:01)
--- NOTE | 2016-12-29 09:50 | CR ---
Chest: Two views of the chest were obtained. Comparison: Previous chest x-ray of 12/27/16. Continuing density noted within the left base. Lungs otherwise are clear. Heart size and mediastinum are normal. Slight degenerative change scattered within the spine with minimal scoliosis. Impression: 1. Stable chest x-ray with findings as described above. Diagnostic code #3
[2016-12-29] MEDS ORDERED: Levalbuterol HCl 0.63 MG/3 ML Neb NEB PRN (12:03)
[2016-12-29] MEDS ORDERED: Magnesium Sulfate/Water 2 GM in Premix Bag 1 BAG IV ONE (12:08)
[2016-12-29] MEDS: cefTRIAXone 1 GM in Sodium Chloride 0.9% 100 ML IV SCH (14:00)
[2016-12-29] MEDS: Azithromycin 500 MG in Sodium Chloride 0.9% 250 ML IV SCH (14:00)
--- NOTE | 2016-12-29 17:55 | PCM.PN ---
- General Info Date of Service: 12/29/16 Functional Status: Reports: tolerating diet, ambulating, urinating - Review of Systems General: Reports: No Symptoms HEENT: Reports: no symptoms Pulmonary: Reports: no symptoms Cardiovascular: Reports: No Symptoms Gastrointestinal: Reports: No symptoms Genitourinary: Reports: no symptoms Musculoskeletal: Reports: no symptoms Skin: Reports: no symptoms Neurological: Reports: No Symptoms Psychiatric: Reports: no symptoms - Patient Data Vitals - most recent: Last Vital Signs Temp 37.0 C 12/29/16 16:13 Pulse 75 12/29/16 16:13 Resp 18 12/29/16 16:13 BP 111/57 L 12/29/16 16:13 Pulse Ox 98 12/29/16 16:13 Weight - most recent: 93.395 kg I&O - last 24 hours: Intake & Output 12/29/16 12/29/16 12/29/16 06:59 14:59 22:59 Intake Total 75 0 1510 Output Total 800 200 Balance -725 0 1310 Lab Results last 24 hrs: Laboratory Results - last 24 hr 12/29/16 12/29/16 Range/Units 06:02 06:02 WBC 9.45 H (4.23-9.07) K/mm3 RBC 4.30 L (4.63-6.08) M/mm3 Hgb 12.9 L (13.7-17.5) gm/L Hct 38.8 L (40.1-51.0) % MCV 90.2 (79.0-92.2) fl MCH 30.0 (25.7-32.2) pg MCHC 33.2 (32.2-35.5) g/dl RDW Std Deviation 48.5 H (35.1-43.9) fL Plt Count 162 L (163-337) K/mm3 MPV 8.4 L (9.4-12.3) fl Neut % (Auto) 76.5 H (34.0-67.9) % Lymph % (Auto) 10.9 L (21.8-53.1) % [place] % (Auto) 11.5 (5.3-12.2) % Eos % (Auto) 0.4 L (0.8-7.0) Baso % (Auto) 0.1 (0.1-1.2) % Neut # (Auto) 7.22 H (1.78-5.38) K/mm3 Lymph # (Auto) 1.03 L (1.32-3.57) K/mm3 [place] # (Auto) 1.09 H (0.30-0.82) K/mm3 Eos # (Auto) 0.04 (0.04-0.54) K/mm3 Baso # (Auto) 0.01 (0.01-0.08) K/mm3 Sodium 139 (136-145) mEq/L Potassium 3.9 (3.5-5.1) mEq/L Chloride 104 (98-107) mEq/L Carbon Dioxide 25 (21-32) mEq/L Anion Gap 13.9 (5-15) BUN 21 H (7-18) mg/dL Creatinine 1.5 H (0.7-1.3) mg/dL Est Cr Clr Drug Dosing 43.83 mL/min Estimated GFR (MDRD) 45 (>60) mL/min BUN/Creatinine Ratio 14.0 (14-18) Glucose 101 (83-115) mg/dL Calcium 8.4 L (8.5-10.1) mg/dL Magnesium 1.6 L (1.8-2.4) mg/dl C-Reactive Protein 18.8 H* (<1.0) mg/dL Med Orders - Current: Current Medications Acetaminophen (Tylenol) 650 mg PO Q4H PRN PRN Reason: Pain (Mild 1-3)/fever Acetaminophen/Hydrocodone Bitart ([place] 325-5 Mg) 1 tab PO Q4H PRN PRN Reason: Pain (moderate 4-6) Albuterol (Proventil Hfa) 0 gm INH DAILY PRN PRN Reason: Dyspnea Bisacodyl (Dulcolax) 5 mg PO DAILY PRN PRN Reason: Constipation Budesonide (Pulmicort) 0.5 mg INH BID [facility] Last Admin: 12/29/16 09:09 Dose: 0.5 mg Carvedilol (Coreg) 12.5 mg PO BID [facility] Last Admin: 12/29/16 08:02 Dose: 12.5 mg Ezetimibe (Zetia) 10 mg PO DAILY [facility] Last Admin: 12/29/16 08:02 Dose: 10 mg Flecainide Acetate (Tambocor) 100 mg PO BID [facility] Last Admin: 12/29/16 08:02 Dose: 100 mg Guaifenesin (Mucinex) 600 mg PO BID [facility] Last Admin: 12/29/16 08:02 Dose: 600 mg Hydromorphone HCl (Dilaudid) 0.25 mg IVPUSH Q2H PRN PRN Reason: Pain (severe 7-10) Azithromycin 500 mg/ Sodium (Chloride) 250 mls @ 250 mls/hr IV Q24H [facility] Last Admin: 12/29/16 14:00 Dose: 250 mls/hr Ceftriaxone Sodium 1 gm/ (Sodium Chloride) 100 mls @ 200 mls/hr IV Q24H [facility] Last Admin: 12/29/16 14:00 Dose: 200 mls/hr Levalbuterol HCl (Xopenex) 0.63 mg NEB Q8H PRN PRN Reason: Shortness of Breath Lorazepam (Ativan) 0.5 mg IV Q6H PRN PRN Reason: Anxiety Ondansetron HCl (Zofran) 4 mg IV Q6H PRN PRN Reason: Nausea/Vomiting Pantoprazole Sodium (Protonix) 40 mg PO BID [facility] Last Admin: 12/29/16 08:03 Dose: 40 mg Umeclidinium [place] [Incruse Ellipta] 62.5 Mcg 0 each INH DAILY [facility] Last Admin: 12/29/16 08:03 Dose: Not Given Polyethylene Glycol (Miralax) 17 gm PO DAILY PRN PRN Reason: Constipation Senna/Docusate Sodium (Senna Plus) 1 tab PO BID PRN PRN Reason: Constipation Simvastatin (Zocor) 40 mg PO DAILY [facility] Last Admin: 12/29/16 08:03 Dose: 40 mg Tamsulosin HCl (Flomax) 0.4 mg PO DAILY [facility] Temazepam (Restoril) 15 mg PO BEDTIME PRN PRN Reason: Sleep Warfarin Sodium (Coumadin) 2.5 mg PO MoFr@1800 [facility] Warfarin Sodium (Coumadin) 1 mg PO SuTuWeThSa@1800 [facility] Last Admin: 12/28/16 18:36 Dose: 1 mg Discontinued Medications Albuterol/Ipratropium (Duoneb 3.0-0.5 Mg/3 Ml) 3 ml NEB Q4H PRN PRN Reason: Shortness Of Breath/wheezing Last Admin: 12/29/16 09:13 Dose: 3 ml Diltiazem HCl (Diltiazem) 10 mg IVPUSH ONETIME STA Stop: 12/27/16 23:26 Last Admin: 12/27/16 23:48 Dose: 10 mg Diltiazem HCl 100 mg/ Sodium (Chloride) 100 mls @ 10 mls/hr IV TITRATE ANIKA; 10 MG/HR PRN Reason: Protocol Last Titration: 12/28/16 05:59 Dose: 0 mg/hr, 0 mls/hr Sodium Chloride (Normal Saline) 1,000 mls @ 100 mls/hr IV ASDIRECTED [facility]IKA Last Admin: 12/27/16 23:51 Dose: 100 mls/hr Azithromycin 500 mg/ Sodium (Chloride) 250 mls @ 250 mls/hr IV ONETIME ONE Stop: 12/28/16 00:55 Last Admin: 12/28/16 00:44 Dose: 250 mls/hr Ceftriaxone Sodium 2 gm/ (Sodium Chloride) 100 mls @ 200 mls/hr IV ONETIME ONE Stop: 12/28/16 00:23 Last Admin: 12/28/16 00:11 Dose: 200 mls/hr Promethazine HCl 12.5 mg/ (Sodium Chloride) 50.5 mls @ 100 mls/hr IV Q6H PRN PRN Reason: Nausea/Vomiting Magnesium Sulfate 2 gm/ Premix 50 mls @ 25 mls/hr IV ONETIME ONE Stop: 12/29/16 14:07 Last Admin: 12/29/16 13:59 Dose: 25 mls/hr Non-Formulary Medication (Acetaminophen/Diphenhydramine) 2 tab PO BEDTIME [facility] Non-Formulary Medication (Albuterol) 1 puff INH BID [facility] Last Admin: 12/28/16 17:05 Dose: Not Given Non-Formulary Medication (Fluticasone Propionate [Flovent]) 2 puff INH DAILY [facility] Last Admin: 12/28/16 17:05 Dose: Not Given Warfarin Sodium (Coumadin) 1 mg PO SUTUWETHSA [facility] Last Admin: 12/28/16 18:37 Dose: Not Given - Exam Quality Assessment: supplemental oxygen, DVT prophylaxis General: alert, oriented, cooperative, no acute distress HEENT: Pupils equal, Pupils reactive, EOMI Neck: supple, trachea midline, no JVD Lungs: Normal respiratory effort Cardiovascular: Regular Rate, Irregular Rhythm Abdomen: bowel sounds present, soft, no tenderness, no distension (Male) Exam: Deferred Back Exam: normal inspection Extremities: no edema, normal pulses Skin: warm Neurological: no new focal deficit, normal speech Psy/Mental Status: alert, normal affect, normal mood - Problem List Review Problem List Initiated/Reviewed/Updated: Yes - My Orders Last 24 Hours: My Active Orders 12/29/16 12:03 RT Aerosol Therapy [RC] ASDIRECTED Levalbuterol HCl [Xopenex] 0.63 mg NEB Q8H PRN 12/29/16 Lunch Regular Diet [DIET] 12/30/16 05:00 INR,PT,PROTHROMBIN TIME [COAG] Routine 12/30/16 09:00 Tamsulosin [Flomax] 0.4 mg PO DAILY - Plan Plan:: Assessment/Plan: U-Dnj-Q-flutter with RVR, resolved - Cardizem drip, stopped - Continue current rate control medications - Daily INR with warfarin CAP-Left Lower Lobe PNA - Risk factor: GERD - Continue IV Azith/Rocephin - PPI BID - Incentive Spirometry as directed - Serial CXR Leukocytosis - 2/2 Above - Treat underlying cause Chronic: GERD HLD Hx/o Lung Cancer S/p Lobectomy Plan: Transfer to Med-Surg with Tele on 12/29/16 Routine AM Labs Resume Home Meds PT/OT/RT consult SW/CM for d/c planning Aspiration Precautions Code Status:1 DC 24-48 hours.
[2016-12-30] MEDS: Acetaminophen/HYDROcodone 325-5 MG Tab PO PRN ×2 (02:44→20:36)
[2016-12-30] MEDS: Budesonide 0.5 MG/2 ML Neb Susp INH SCH ×2 (08:59→21:00)
[2016-12-30] MEDS: UMECLIDINIUM BROMIDE 62.5 MCG INH SCH (08:59)
[2016-12-30] MEDS: Carvedilol 12.5 MG Tab PO SCH ×2 (09:34→20:34)
[2016-12-30] MEDS: Pantoprazole 40 MG Tab.CR PO SCH ×2 (09:36→20:35)
[2016-12-30] MEDS: Flecainide 50 MG Tab PO SCH ×2 (09:36→20:36)
[2016-12-30] MEDS: Ezetimibe 10 MG Tab PO SCH (09:37)
[2016-12-30] MEDS: guaiFENesin 600 MG Tab.ER PO SCH ×2 (09:37→20:34)
[2016-12-30] MEDS: Simvastatin 20 MG Tab PO SCH (09:37)
[2016-12-30] MEDS: Tamsulosin 0.4 MG Cap.ER PO SCH (09:38)
[2016-12-30] MEDS: Azithromycin 250 MG Tab PO SCH (14:24)
[2016-12-30] MEDS: cefTRIAXone 1 GM in Sodium Chloride 0.9% 100 ML IV SCH (14:24)
--- NOTE | 2016-12-30 15:35 | PCM.PN ---
- General Info Date of Service: 12/30/16 Functional Status: Reports: tolerating diet, ambulating, urinating - Review of Systems General: Reports: No Symptoms HEENT: Reports: no symptoms Pulmonary: Reports: no symptoms Cardiovascular: Reports: No Symptoms Gastrointestinal: Reports: No symptoms Genitourinary: Reports: no symptoms Musculoskeletal: Reports: no symptoms Skin: Reports: no symptoms Neurological: Reports: No Symptoms Psychiatric: Reports: no symptoms - Patient Data Vitals - most recent: Last Vital Signs Temp 36.4 C 12/30/16 14:29 Pulse 83 12/30/16 14:29 Resp 18 12/30/16 14:29 BP 121/85 12/30/16 14:29 Pulse Ox 96 12/30/16 14:29 Weight - most recent: 92.986 kg I&O - last 24 hours: Intake & Output 12/30/16 12/30/16 12/30/16 06:59 14:59 22:59 Intake Total 400 120 Output Total 600 Balance -200 120 Lab Results last 24 hrs: Laboratory Results - last 24 hr 12/30/16 12/30/16 12/30/16 Range/Units 05:08 05:08 05:08 WBC 8.19 (4.23-9.07) K/mm3 RBC 4.21 L (4.63-6.08) M/mm3 Hgb 12.5 L (13.7-17.5) gm/L Hct 38.1 L (40.1-51.0) % MCV 90.5 (79.0-92.2) fl MCH 29.7 (25.7-32.2) pg MCHC 32.8 (32.2-35.5) g/dl RDW Std Deviation 48.7 H (35.1-43.9) fL Plt Count 194 (163-337) K/mm3 MPV 8.4 L (9.4-12.3) fl Neut % (Auto) 73.0 H (34.0-67.9) % Lymph % (Auto) 13.8 L (21.8-53.1) % [place] % (Auto) 11.6 (5.3-12.2) % Eos % (Auto) 0.6 L (0.8-7.0) Baso % (Auto) 0.1 (0.1-1.2) % Neut # (Auto) 5.98 H (1.78-5.38) K/mm3 Lymph # (Auto) 1.13 L (1.32-3.57) K/mm3 [place] # (Auto) 0.95 H (0.30-0.82) K/mm3 Eos # (Auto) 0.05 (0.04-0.54) K/mm3 Baso # (Auto) 0.01 (0.01-0.08) K/mm3 PT 14.7 H (8.0-13.0) SECONDS INR 1.32 Sodium 138 (136-145) mEq/L Potassium 3.9 (3.5-5.1) mEq/L Chloride 103 (98-107) mEq/L Carbon Dioxide 25 (21-32) mEq/L Anion Gap 13.9 (5-15) BUN 22 H (7-18) mg/dL Creatinine 1.5 H (0.7-1.3) mg/dL Est Cr Clr Drug Dosing 43.83 mL/min Estimated GFR (MDRD) 45 (>60) mL/min BUN/Creatinine Ratio 14.7 (14-18) Glucose 117 H (83-115) mg/dL Calcium 8.6 (8.5-10.1) mg/dL Magnesium 1.9 (1.8-2.4) mg/dl C-Reactive Protein 11.2 H* (<1.0) mg/dL Med Orders - Current: Current Medications Acetaminophen (Tylenol) 650 mg PO Q4H PRN PRN Reason: Pain (Mild 1-3)/fever Acetaminophen/Hydrocodone Bitart ([place] 325-5 Mg) 1 tab PO Q4H PRN PRN Reason: Pain (moderate 4-6) Last Admin: 12/30/16 02:44 Dose: 1 tab Albuterol (Proventil Hfa) 0 gm INH DAILY PRN PRN Reason: Dyspnea Azithromycin (Zithromax) 500 mg PO DAILY [facility] Last Admin: 12/30/16 14:24 Dose: 500 mg Bisacodyl (Dulcolax) 5 mg PO DAILY PRN PRN Reason: Constipation Budesonide (Pulmicort) 0.5 mg INH BID [facility] Last Admin: 12/30/16 08:59 Dose: 0.5 mg Carvedilol (Coreg) 12.5 mg PO BID [facility] Last Admin: 12/30/16 09:34 Dose: 12.5 mg Ezetimibe (Zetia) 10 mg PO DAILY [facility] Last Admin: 12/30/16 09:37 Dose: 10 mg Flecainide Acetate (Tambocor) 100 mg PO BID [facility] Last Admin: 12/30/16 09:36 Dose: 100 mg Guaifenesin (Mucinex) 600 mg PO BID [facility] Last Admin: 12/30/16 09:37 Dose: 600 mg Hydromorphone HCl (Dilaudid) 0.25 mg IVPUSH Q2H PRN PRN Reason: Pain (severe 7-10) Ceftriaxone Sodium 1 gm/ (Sodium Chloride) 100 mls @ 200 mls/hr IV Q24H [facility] Last Admin: 12/30/16 14:24 Dose: 200 mls/hr Levalbuterol HCl (Xopenex) 0.63 mg NEB Q8H PRN PRN Reason: Shortness of Breath Lorazepam (Ativan) 0.5 mg IV Q6H PRN PRN Reason: Anxiety Ondansetron HCl (Zofran) 4 mg IV Q6H PRN PRN Reason: Nausea/Vomiting Pantoprazole Sodium (Protonix) 40 mg PO BID [facility] Last Admin: 12/30/16 09:36 Dose: 40 mg Umeclidinium [place] [Incruse Ellipta] 62.5 Mcg 0 each INH DAILY [facility] Last Admin: 12/30/16 08:59 Dose: 1 each Polyethylene Glycol (Miralax) 17 gm PO DAILY PRN PRN Reason: Constipation Senna/Docusate Sodium (Senna Plus) 1 tab PO BID PRN PRN Reason: Constipation Simvastatin (Zocor) 40 mg PO DAILY [facility] Last Admin: 12/30/16 09:37 Dose: 40 mg Tamsulosin HCl (Flomax) 0.4 mg PO DAILY [facility] Last Admin: 12/30/16 09:38 Dose: 0.4 mg Temazepam (Restoril) 15 mg PO BEDTIME PRN PRN Reason: Sleep Warfarin Sodium (Coumadin) 2.5 mg PO MoFr@1800 [facility] Warfarin Sodium (Coumadin) 1 mg PO SuTuWeThSa@1800 [facility] Last Admin: 12/29/16 18:31 Dose: 1 mg Discontinued Medications Albuterol/Ipratropium (Duoneb 3.0-0.5 Mg/3 Ml) 3 ml NEB Q4H PRN PRN Reason: Shortness Of Breath/wheezing Last Admin: 12/29/16 09:13 Dose: 3 ml Diltiazem HCl (Diltiazem) 10 mg IVPUSH ONETIME STA Stop: 12/27/16 23:26 Last Admin: 12/27/16 23:48 Dose: 10 mg Diltiazem HCl 100 mg/ Sodium (Chloride) 100 mls @ 10 mls/hr IV TITRATE ANIKA; 10 MG/HR PRN Reason: Protocol Last Titration: 12/28/16 05:59 Dose: 0 mg/hr, 0 mls/hr Sodium Chloride (Normal Saline) 1,000 mls @ 100 mls/hr IV ASDIRECTED [facility]IKA Last Admin: 12/27/16 23:51 Dose: 100 mls/hr Azithromycin 500 mg/ Sodium (Chloride) 250 mls @ 250 mls/hr IV ONETIME ONE Stop: 12/28/16 00:55 Last Admin: 12/28/16 00:44 Dose: 250 mls/hr Ceftriaxone Sodium 2 gm/ (Sodium Chloride) 100 mls @ 200 mls/hr IV ONETIME ONE Stop: 12/28/16 00:23 Last Admin: 12/28/16 00:11 Dose: 200 mls/hr Promethazine HCl 12.5 mg/ (Sodium Chloride) 50.5 mls @ 100 mls/hr IV Q6H PRN PRN Reason: Nausea/Vomiting Azithromycin 500 mg/ Sodium (Chloride) 250 mls @ 250 mls/hr IV Q24H [facility] Last Admin: 12/29/16 14:00 Dose: 250 mls/hr Magnesium Sulfate 2 gm/ Premix 50 mls @ 25 mls/hr IV ONETIME ONE Stop: 12/29/16 14:07 Last Admin: 12/29/16 13:59 Dose: 25 mls/hr Non-Formulary Medication (Acetaminophen/Diphenhydramine) 2 tab PO BEDTIME [facility] Non-Formulary Medication (Albuterol) 1 puff INH BID [facility] Last Admin: 12/28/16 17:05 Dose: Not Given Non-Formulary Medication (Fluticasone Propionate [Flovent]) 2 puff INH DAILY [facility] Last Admin: 12/28/16 17:05 Dose: Not Given Warfarin Sodium (Coumadin) 1 mg PO SUTUWETHSA [facility] Last Admin: 12/28/16 18:37 Dose: Not Given - Exam Quality Assessment: DVT prophylaxis General: alert, oriented, cooperative, no acute distress HEENT: Pupils equal, Pupils reactive, EOMI Neck: supple, trachea midline Lungs: Normal respiratory effort Cardiovascular: Regular Rate, Irregular Rhythm Abdomen: bowel sounds present, soft, no tenderness, no distension (Male) Exam: Deferred Back Exam: normal inspection Extremities: normal pulses Skin: warm Neurological: normal gait, normal speech Psy/Mental Status: alert, normal affect, normal mood - Problem List Review Problem List Initiated/Reviewed/Updated: Yes - My Orders Last 24 Hours: My Active Orders 12/30/16 09:00 Tamsulosin [Flomax] 0.4 mg PO DAILY 12/30/16 14:30 Azithromycin [Zithromax] 500 mg PO DAILY - Plan Plan:: Assessment/Plan: R-Qvl-K-flutter with RVR, resolved - Cardizem drip, stopped - Continue current rate control medications - Daily INR with warfarin CAP-Left Lower Lobe PNA - Risk factor: GERD - Continue IV Azith/Rocephin - PPI BID - Incentive Spirometry as directed - Serial CXR Leukocytosis - 2/2 Above - Treat underlying cause Chronic: GERD HLD Hx/o Lung Cancer S/p Lobectomy Plan: Oral antibiotics Routine AM Labs Resume Home Meds PT/OT/RT consult SW/CM for d/c planning Aspiration Precautions Code Status:1 LOS>96 hours DC 12/31/16.
[2016-12-30] MEDS ORDERED: Warfarin 2.5 MG Tab PO SCH (18:00)
[2016-12-30] MEDS: Bisacodyl 5 MG Tab PO PRN (20:38)
[2016-12-31] MEDS: Ezetimibe 10 MG Tab PO SCH (08:46)
[2016-12-31] MEDS: Flecainide 50 MG Tab PO SCH (08:47)
[2016-12-31] MEDS: guaiFENesin 600 MG Tab.ER PO SCH (08:48)
[2016-12-31] MEDS: Azithromycin 250 MG Tab PO SCH (08:48)
[2016-12-31] MEDS: Bisacodyl 5 MG Tab PO PRN (08:48)
[2016-12-31] MEDS: Carvedilol 12.5 MG Tab PO SCH (08:48)
[2016-12-31] MEDS: Pantoprazole 40 MG Tab.CR PO SCH (08:49)
[2016-12-31] MEDS: Simvastatin 20 MG Tab PO SCH (08:49)
[2016-12-31] MEDS: Tamsulosin 0.4 MG Cap.ER PO SCH (08:49)
[2016-12-31 08:50] VITALS: BP 121/66
[2016-12-31] MEDS: UMECLIDINIUM BROMIDE 62.5 MCG INH SCH (09:02)
[2016-12-31] MEDS: Budesonide 0.5 MG/2 ML Neb Susp INH SCH (09:02)
--- NOTE | 2016-12-31 13:30 | PCM.DCSUM1 ---
Discharge Summary - Hospital Course Free Text/Narrative:: 81 year old patient with a history of lung cancer, s/p lobectomy presented with A Fib with RVR. After admission to the ICU on a cardizem drip, converted to SR. he was found to have a LLL infiltrate and received Zithromax as well as Rocephin. No significant change was made with his cardiac meds at [place]; a Z pack prescription was provided at [place]. Primary Dx A Fib with RVR CAP Condition Good Disposition Home Medication Z pack as directed Follow up/Appt, TBA PCP Cardiology - Discharge Data Discharge Date: 12/31/16 Discharge Disposition: Home, Self-Care 01 Condition: Good - Patient Summary/Data Consults: Consultations 12/28/16 07:33 Consult to Case Management [CONS] Routine Consult to Maintenance Electrician [CONS] Routine OT Evaluation and Treatment [CONS] Routine PT Evaluation and Treatment [CONS] Routine Respiratory Care Assess and Treatment [CONS] Routine 12/28/16 12:47 Consult to Speech Language Pathology [HEAD OF ICT Evaluation and Treatment] [CONS] Routine - Patient Instructions Diet: Usual Diet as Tolerated Activity: As Tolerated Driving: May Drive Today Showering/Bathing: May Shower Notify Provider of: Fever, Nausea and/or Vomiting - Discharge Plan Prescriptions/Med Rec: Azithromycin [Zithromax] 500 mg PO DAILY #4 tablet Home Medications: Home Meds Acetaminophen/Diphenhydramine [Tylenol Pm Ex-Strength Caplet] 2 tab PO BEDTIME 02/27/15 [History] Albuterol [Ventolin HFA] 2 puff INH Q6H PRN 02/27/15 [History] Carvedilol [Coreg] 12.5 mg PO BID 02/27/15 [History] Ezetimibe [Zetia] 10 mg PO DAILY 02/27/15 [History] Omeprazole 20 mg PO DAILY 02/27/15 [History] Pravastatin [Pravachol] 40 mg PO DAILY 02/27/15 [History] Budesonide [Pulmicort] 0.5 mg IH BID 11/20/16 [History] Flecainide [Tambocor] 100 mg PO BID 11/20/16 [History] Warfarin [Coumadin] 1 mg PO SUTUWETHSA 11/20/16 [History] Warfarin [Coumadin] 2.5 mg PO MOFR 11/20/16 [History] Umeclidinium [place] [Incruse Ellipta] 62.5 mcg PO DAILY 12/27/16 [History] Albuterol Sulfate 2.5 mg IH BID 12/28/16 [History] Ramipril 5 mg PO DAILY 12/28/16 [History] Tamsulosin [Flomax] 0.4 mg PO PCBREAKFAST 12/28/16 [History] Azithromycin [Zithromax] 500 mg PO DAILY #4 tablet 12/31/16 [Rx] Patient Handouts: Atrial Flutter, Community-Acquired Pneumonia, Adult, Easy-to- Read Referrals: Toribio Franco MD [Primary Care Provider] - - Discharge Summary/Plan Comment DC Time >30 min.: No - General Info Date of Service: 12/28/16 Functional Status: Reports: tolerating diet, ambulating, urinating - Review of Systems General: Reports: No Symptoms HEENT: Reports: no symptoms Pulmonary: Reports: no symptoms Cardiovascular: Reports: No Symptoms Gastrointestinal: Reports: No symptoms Genitourinary: Reports: no symptoms Musculoskeletal: Reports: no symptoms Skin: Reports: no symptoms Neurological: Reports: No Symptoms Psychiatric: Reports: no symptoms - Patient Data Vitals - Most Recent: Last Vital Signs Temp 36.7 C 12/31/16 07:25 Pulse 66 12/31/16 08:48 Resp 18 12/31/16 07:25 BP 121/66 12/31/16 08:48 Pulse Ox 97 12/31/16 09:04 Weight - Most Recent: 92.896 kg I&O - Last 24 hours: Intake & Output 12/30/16 12/31/16 12/31/16 22:59 06:59 14:59 Intake Total 1240 400 Output Total 525 650 Balance 715 -250 Lab Results - Last 24 hrs: Laboratory Results - last 24 hr 12/31/16 12/31/16 Range/Units 05:16 05:16 WBC 7.94 (4.23-9.07) K/mm3 RBC 4.27 L (4.63-6.08) M/mm3 Hgb 12.6 L (13.7-17.5) gm/L Hct 38.4 L (40.1-51.0) % MCV 89.9 (79.0-92.2) fl MCH 29.5 (25.7-32.2) pg MCHC 32.8 (32.2-35.5) g/dl RDW Std Deviation 47.3 H (35.1-43.9) fL Plt Count 203 (163-337) K/mm3 MPV 8.4 L (9.4-12.3) fl Neut % (Auto) 71.7 H (34.0-67.9) % Lymph % (Auto) 14.2 L (21.8-53.1) % [place] % (Auto) 11.2 (5.3-12.2) % Eos % (Auto) 0.6 L (0.8-7.0) Baso % (Auto) 0.4 (0.1-1.2) % Neut # (Auto) 5.69 H (1.78-5.38) K/mm3 Lymph # (Auto) 1.13 L (1.32-3.57) K/mm3 [place] # (Auto) 0.89 H (0.30-0.82) K/mm3 Eos # (Auto) 0.05 (0.04-0.54) K/mm3 Baso # (Auto) 0.03 (0.01-0.08) K/mm3 Manual Slide Review Normal smear Sodium 138 (136-145) mEq/L Potassium 4.2 (3.5-5.1) mEq/L Chloride 103 (98-107) mEq/L Carbon Dioxide 27 (21-32) mEq/L Anion Gap 12.2 (5-15) BUN 22 H (7-18) mg/dL Creatinine 1.5 H (0.7-1.3) mg/dL Est Cr Clr Drug Dosing 43.83 mL/min Estimated GFR (MDRD) 45 (>60) mL/min BUN/Creatinine Ratio 14.7 (14-18) Glucose 100 (83-115) mg/dL Calcium 8.9 (8.5-10.1) mg/dL Magnesium 1.8 (1.8-2.4) mg/dl C-Reactive Protein 6.1 H* (<1.0) mg/dL Med Orders - Current: Current Medications Discontinued Medications Acetaminophen (Tylenol) 650 mg PO Q4H PRN PRN Reason: Pain (Mild 1-3)/fever Hydrocodone Bitart/Acetaminophen ([place] 325-5 Mg) 1 tab PO Q4H PRN PRN Reason: Pain (moderate 4-6) Last Admin: 12/30/16 20:36 Dose: 1 tab Albuterol (Proventil Hfa) 0 gm INH DAILY PRN PRN Reason: Dyspnea Albuterol/Ipratropium (Duoneb 3.0-0.5 Mg/3 Ml) 3 ml NEB Q4H PRN PRN Reason: Shortness Of Breath/wheezing Last Admin: 12/29/16 09:13 Dose: 3 ml Azithromycin (Zithromax) 500 mg PO DAILY [facility] Last Admin: 12/31/16 08:48 Dose: 500 mg Bisacodyl (Dulcolax) 5 mg PO DAILY PRN PRN Reason: Constipation Last Admin: 12/31/16 08:48 Dose: 5 mg Budesonide (Pulmicort) 0.5 mg INH BID [facility] Last Admin: 12/31/16 09:02 Dose: 0.5 mg Carvedilol (Coreg) 12.5 mg PO BID [facility] Last Admin: 12/31/16 08:48 Dose: 12.5 mg Diltiazem HCl (Diltiazem) 10 mg IVPUSH ONETIME STA Stop: 12/27/16 23:26 Last Admin: 12/27/16 23:48 Dose: 10 mg Ezetimibe (Zetia) 10 mg PO DAILY [facility] Last Admin: 12/31/16 08:46 Dose: 10 mg Flecainide Acetate (Tambocor) 100 mg PO BID [facility] Last Admin: 12/31/16 08:47 Dose: 100 mg Guaifenesin (Mucinex) 600 mg PO BID [facility] Last Admin: 12/31/16 08:48 Dose: 600 mg Hydromorphone HCl (Dilaudid) 0.25 mg IVPUSH Q2H PRN PRN Reason: Pain (severe 7-10) Diltiazem HCl 100 mg/ Sodium (Chloride) 100 mls @ 10 mls/hr IV TITRATE ANIKA; 10 MG/HR PRN Reason: Protocol Last Titration: 12/28/16 05:59 Dose: 0 mg/hr, 0 mls/hr Sodium Chloride (Normal Saline) 1,000 mls @ 100 mls/hr IV ASDIRECTED [facility] Last Admin: 12/27/16 23:51 Dose: 100 mls/hr Azithromycin 500 mg/ Sodium (Chloride) 250 mls @ 250 mls/hr IV ONETIME ONE Stop: 12/28/16 00:55 Last Admin: 12/28/16 00:44 Dose: 250 mls/hr Ceftriaxone Sodium 2 gm/ (Sodium Chloride) 100 mls @ 200 mls/hr IV ONETIME ONE Stop: 12/28/16 00:23 Last Admin: 12/28/16 00:11 Dose: 200 mls/hr Promethazine HCl 12.5 mg/ (Sodium Chloride) 50.5 mls @ 100 mls/hr IV Q6H PRN PRN Reason: Nausea/Vomiting Azithromycin 500 mg/ Sodium (Chloride) 250 mls @ 250 mls/hr IV Q24H [facility] Last Admin: 12/29/16 14:00 Dose: 250 mls/hr Ceftriaxone Sodium 1 gm/ (Sodium Chloride) 100 mls @ 200 mls/hr IV Q24H [facility] Last Admin: 12/30/16 14:24 Dose: 200 mls/hr Magnesium Sulfate 2 gm/ Premix 50 mls @ 25 mls/hr IV ONETIME ONE Stop: 12/29/16 14:07 Last Admin: 12/29/16 13:59 Dose: 25 mls/hr Levalbuterol HCl (Xopenex) 0.63 mg NEB Q8H PRN PRN Reason: Shortness of Breath Lorazepam (Ativan) 0.5 mg IV Q6H PRN PRN Reason: Anxiety Non-Formulary Medication (Acetaminophen/Diphenhydramine) 2 tab PO BEDTIME [facility] Non-Formulary Medication (Albuterol) 1 puff INH BID [facility] Last Admin: 12/28/16 17:05 Dose: Not Given Non-Formulary Medication (Fluticasone Propionate [Flovent]) 2 puff INH DAILY [facility] Last Admin: 12/28/16 17:05 Dose: Not Given Ondansetron HCl (Zofran) 4 mg IV Q6H PRN PRN Reason: Nausea/Vomiting Pantoprazole Sodium (Protonix) 40 mg PO BID [facility] Last Admin: 12/31/16 08:49 Dose: 40 mg Umeclidinium [place] [Incruse Ellipta] 62.5 Mcg 0 each INH DAILY [facility] Last Admin: 12/31/16 09:02 Dose: 1 each Polyethylene Glycol (Miralax) 17 gm PO DAILY PRN PRN Reason: Constipation Senna/Docusate Sodium (Senna Plus) 1 tab PO BID PRN PRN Reason: Constipation Simvastatin (Zocor) 40 mg PO DAILY [facility] Last Admin: 12/31/16 08:49 Dose: 40 mg Tamsulosin HCl (Flomax) 0.4 mg PO DAILY [facility] Last Admin: 12/31/16 08:49 Dose: 0.4 mg Temazepam (Restoril) 15 mg PO BEDTIME PRN PRN Reason: Sleep Warfarin Sodium (Coumadin) 1 mg PO SUTUWETHSA [facility] Last Admin: 12/28/16 18:37 Dose: Not Given Warfarin Sodium (Coumadin) 2.5 mg PO MoFr@1800 [facility] Last Admin: 12/30/16 18:37 Dose: 2.5 mg Warfarin Sodium (Coumadin) 1 mg PO SuTuWeThSa@1800 [facility] Last Admin: 12/29/16 18:31 Dose: 1 mg - Exam Quality Assessment: Reports: DVT prophylaxis General: Reports: alert, oriented, cooperative, no acute distress HEENT: Reports: Pupils equal, Pupils reactive, EOMI Neck: Reports: supple, trachea midline Lungs: Reports: Normal respiratory effort, Rhonchi Cardiovascular: Reports: Regular Rate, Regular Rhythm Abdomen: Reports: bowel sounds present, soft, no tenderness, no distension (Male) Exam: Deferred Rectal (Males) Exam: Deferred. No: Normal exam Back Exam: Reports: normal inspection Extremities: Reports: no edema Skin: Reports: warm Neurological: Reports: no new focal deficit, normal gait, normal speech Psy/Mental Status: Reports: alert, normal affect, normal mood *Q Meaningful Use (DIS) - VTE *Q VTE Criteria *Q: - Stroke *Q Stroke Criteria *Q: - AMI *Q AMI Criteria *Q:
== END 2016-12-31 10:56 | disposition home or self-care (01) | DRG 308 ==
LOC: JD.ED 22:09 → JD.ICU 12-28 01:19 → JD.MS 12-29 14:15
PROVIDERS: ADMIT Internal Medicine; ATTEND Internal Medicine
DX: I48.92 Unspecified atrial flutter (principal); J18.9 Pneumonia, unspecified organism; I48.91 Unspecified atrial fibrillation; K21.9 Gastro-esophageal reflux disease without esophagitis; E78.5 Hyperlipidemia, unspecified; Z85.118 Personal history of other malignant neoplasm of bronchus and lung; J30.9 Allergic rhinitis, unspecified; E78.00 Pure hypercholesterolemia, unspecified; Z79.01 Long term (current) use of anticoagulants; Z79.899 Other long term (current) drug therapy; Z87.891 Personal history of nicotine dependence
CPT/HCPCS: 36600; 71020; 81001; 82803; 83880; 86140; 87040 ×2; 87804 ×2; 93005; 96365; 96366; 96368; 96376; 99285; J0456; J0696; J7030 ×2; J7040; J7050; 36415; 80048; 80053; 83605; 83735; 84484; 85025; 85610; 92526-GN; 92610-GN; 94640; 94640-76; 94664; 94760; 97112-GP; 97116-GP; 97161-GP; 97165-GO; 97535-GO; A9270-GY; J3475; J3490

== ENCOUNTER 2017-07-25 17:07 | Emergency (ER) | payer MEDICARE, BC ==
[2017-07-25] MEDS ORDERED: Succinylcholine/Normal Saline 100 MG/5 ML Syringe IV ONE (17:11)
[2017-07-25] MEDS ORDERED: Succinylcholine 200 MG/10 ML MDV IV ONE (17:12)
[2017-07-25] MEDS ORDERED: Midazolam 1 MG/ML 2 ML SDV IVPUSH ONE ×3 (17:13→19:02)
[2017-07-25] MEDS ORDERED: Furosemide 100 MG/10 ML SDV ONE (17:19)
[2017-07-25] MEDS ORDERED: Lidocaine 1% 50 ML MDV ONE (17:35)
[2017-07-25 17:50] VITALS: BP 126/98
--- NOTE | 2017-07-25 17:55 | EDM.PDOC ---
ED HPI GENERAL MEDICAL PROBLEM - General Chief Complaint: Cardiovascular Problem Stated Complaint: [facility] Time Seen by Provider: 07/25/17 17:45 Source of Information: Reports: EMS, Family History Limitations: Reports: Altered Mental Status (Unresponsive upon arrival.) , Physical Impairment - History of Present Illness INITIAL COMMENTS - FREE TEXT/NARRATIVE: 81-year-old male arrives in the ED unresponsive. Paramedics were summoned to a local home here in [place] for a male that was vomiting. Apparently he has been vomiting all day long. He has a history of chronic lung infection or pneumonia. He is felt to be aspirating on a regular basis. Information was gleaned in bits and pieces once his arrived one half hour after he did. Patient was not making adequate respiratory effort and required intubation when he arrived in the ED. Paramedics indicate as soon as they loaded him he went completely unresponsive and developed a wide-complex tachycardia.. He had gross crackles throughout all lung field suggestive of acute pulmonary edema. Patient was therefore given 120 mg of succinylcholine and 2 mg of Versed to facilitate rapid sequence intubation. Intubated with a 7.5 Burundian ET tube at 23 cm at the right corner of his lip. He did require [place]ma suction of a thick pea soup green nasal material from his hypopharynx. 18-gauge is a gastric tube inserted to the stomach. Placed on ventilator with 14 breaths per minute with FiO2 of 80 % PEEP of 5 Tylenol volume of 550 mils. His CODE STATUS is unknown at this time. He was subsequently paralyzed with 8 mg of vecuronium IV and to further milligrams of Versed. Chest x-ray done portably reveals adequate position of tubes. It reveals a large pneumonic consolidation left lower lobe. There were other areas in the lung zavala that suggested acute pulmonary edema versus aspiration. Blood gas obtained revealed a pH of 7.37 with a PCO2 of 41.8 and a PaO2 of 84 this was obtained while he was still being ventilated with Ambu bag. ECG and monitor continued to show a wide-complex tachycardia up to 1 50/m. He was therefore started on amiodarone 150 mg over 10 minutes and will hold off on the drip at this time. Onset: Today, Sudden Onset Date: 07/25/17 Onset Time: 07:00 Duration: Hour(s):, Getting Worse Location: Reports: Generalized (Repetitive vomiting.) Severity: Severe Context: Reports: Other (Fairly vomiting all day today was suspicion of aspiration by his .) Associated Symptoms: Reports: Nausea/Vomiting, Shortness of Breath Treatments LABEL STITCHER: Reports: Other (see below) (None.) - Related Data Allergies Allergy/AdvReac Type Severity Reaction Status Date / Time No Known Allergies Allergy Verified 07/25/17 19:45 Home Meds: Home Meds Acetaminophen/Diphenhydramine [Tylenol Pm Ex-Strength Caplet] 2 tab PO BEDTIME 02/27/15 [History] Albuterol [Ventolin HFA] 2 puff INH Q6H PRN 02/27/15 [History] Carvedilol [Coreg] 12.5 mg PO BID 02/27/15 [History] Ezetimibe [Zetia] 10 mg PO DAILY 02/27/15 [History] Omeprazole 20 mg PO DAILY 02/27/15 [History] Pravastatin [Pravachol] 40 mg PO DAILY 02/27/15 [History] Budesonide [Pulmicort] 0.5 mg IH BID 11/20/16 [History] Flecainide [Tambocor] 100 mg PO BID 11/20/16 [History] Warfarin [Coumadin] 1 mg PO SUTU 11/20/16 [History] Warfarin [Coumadin] 2.5 mg PO MOWETHFRSA 11/20/16 [History] Umeclidinium [place] [Incruse Ellipta*] 62.5 mcg PO DAILY 12/27/16 [History] Albuterol Sulfate 2.5 mg IH BID 12/28/16 [History] Tamsulosin [Flomax] 0.4 mg PO PCBREAKFAST 12/28/16 [History] Docusate Sodium [Stool Softener] 50 mg PO DAILY PRN 07/25/17 [History] Fluticasone Furoate [Flonase Sensimist] 2 spray INH DAILY 07/25/17 [History] Past Medical History HEENT History: Reports: Allergic Rhinitis Other HEENT History: Wears glasss. Cardiovascular History: Reports: Afib, High Cholesterol Gastrointestinal History: Reports: GERD Oncologic (Cancer) History: Reports: Lung - Infectious Disease History Infectious Disease History: Reports: Chicken Pox, Measles - Past Surgical History Respiratory Surgical History: Reports: Lung Resection Other Respiratory Surgeries/Procedures: L upper lobectomy Social & Family History - Family History Family Medical History: Noncontributory - Tobacco Use Smoking Status *Q: Former Smoker Years of Tobacco use: 54 Packs/Tins Daily: 2 Used Tobacco, but Quit: Yes Month Tobacco Last Used: 2004 Second Hand Smoke Exposure: Yes - Caffeine Use Caffeine Use: Reports: Coffee - Recreational Drug Use Recreational Drug Use: No - Living Situation & Occupation Living situation: Reports: , with Spouse Occupation: Retired ED ROS GENERAL - Review of Systems Review Of Systems: See Below (Patient is unresponsive patient is unresponsive at time of arrival) ED EXAM, GENERAL - Physical Exam Exam: See Below Exam Limited By: Respiratory Distress (Unresponsive at time of arrival with very poor respiratory effort.) General Appearance: Obtunded (Unresponsive.), Other Eye Exam: Bilateral Eye: Normal Inspection (Pupils are dilated to 7 mm bilaterally but do appear to be respond to light.) Throat/Mouth: Other (Oropharynx contained a thick green liquid.) Head: Atraumatic, Normocephalic Neck: Normal Inspection. No: Lymphadenopathy (L), Lymphadenopathy (R) Respiratory/Chest: Respiratory Distress (Severe.), Rales (Rales throughout all lung zavala compatible with acute pulmonary edema.) Cardiovascular: Irregularly Irregular (Wide-complex tachycardia as high as 1 50/ m on the monitor.). No: Normal Peripheral Pulses Peripheral Pulses: 1+: Femoral (L), Femoral (R), 2+: Radial (L), Radial (R) GI/Abdominal: Normal Bowel Sounds, Soft, Non-Tender, No Organomegaly, Other ( Mild tympany upper abdomen to follow some aerophagia.) Back Exam: Normal Inspection Extremities: Normal Inspection, Normal Range of Motion, Non-Tender, No Pedal Edema Neurological: Unresponsive Skin Exam: Cool, Diaphoretic (Mild.). No: Lymphangitis, Mottled ED CARDIOLOGY PROCEDURES - Endotracheal Intubation ET Intubation Indication: Respiratory Failure Preparation: Suction, BVM Set Up Airway Assessment: Profuse Secretions, Large Tongue, Other Pre-Oxygenation: Assisted with BVM (Dentures), 100% FiO2 Anesthesia Meds: Midazolam (2 mg), Succinylcholine (120 mg) Placement: Orotracheal, Cuffed, Uncomplicated Placement Cords Visualized: Yes Confirmed By: CO2 Indicator, Bilateral Breath Sounds, Chest Xray Tube Secured By: By RT (24 cm at the corner of his right lip.) EKG INTERPRETATION EKG Date: 07/25/17 Time: 17:45 Rhythm: Other (Wide-complex tachycardia likely atrial fibrillation due to the irregularity.) Rate (Beats/Min): 102 [place]: RAD-Right [place] Deviation P-Wave: Absent QRS: Wide ST-T: Normal QT: Prolonged (Mildly prolonged) Course - Vital Signs Last Recorded V/S: Last Vital Signs Temp 37.7 C 07/25/17 17:10 Pulse 117 H 07/25/17 17:10 Resp 24 H 07/25/17 17:10 BP 126/98 H 07/25/17 17:10 Pulse Ox 87 L 07/25/17 17:10 - Orders/Labs/Meds Orders: Active Orders 24 hr Category Date Time Status EKG Documentation Completion [RC] STAT Care 07/25/17 17:46 Active Jerome Catheter Insertion [Insert Urinary Catheter] [OM. Care 07/25/17 19:00 Ordered PC] Q24H Urinary Catheter Assessment [RC] ASDIRECTED Care 07/25/17 18:46 Active Ventilator Assessment [RT Ventilator, Adult] [RC] Care 07/25/17 17:40 Active ASDIRECTED Chest 1V Frontal [CR] Stat Exams 07/25/17 17:46 Taken CULTURE BLOOD [BC] Stat Lab 07/25/17 18:08 Received CULTURE BLOOD [BC] Stat Lab 07/25/17 18:18 Received Clindamycin Phosphate [Cleocin] 900 mg Med 07/25/17 20:20 Active Sodium Chloride 0.9% [Normal Saline] 100 ml IV ONETIME Norepinephrine [Levophed] 4 mg Med 07/25/17 19:45 Active Dextrose 5% in Water 246 ml IV TITRATE Sodium Chloride 0.9% [Normal Saline] 1,000 ml Med 07/25/17 18:00 Active IV ASDIRECTED Blood Culture x2 Reflex Set [OM.PC] Stat Oth 07/25/17 17:47 Ordered Nasogastric Orogastric Tube Insertion [OM.PC] Routine Oth 07/25/17 17:26 Ordered Medication Orders Sodium Chloride (Normal Saline) 1,000 mls @ 100 mls/hr IV ASDIRECTED ANIKA Last Admin: 07/25/17 18:35 Dose: 100 mls/hr Norepinephrine Bitartrate 4 mg (/ Dextrose/Water) 250 mls @ 7.5 mls/hr IV TITRATE ANIKA; 2 MCG/MIN PRN Reason: Protocol Last Titration: 07/25/17 20:04 Dose: 4 mcg/min, 15 mls/hr Admin: 07/25/17 19:56 Dose: 2 mcg/min, 7.5 mls/hr Clindamycin Phosphate 900 mg/ (Sodium Chloride) 106 mls @ 100 mls/hr IV ONETIME ONE Stop: 07/25/17 21:23 Last Admin: 07/25/17 20:36 Dose: 100 mls/hr Labs: Laboratory Tests 07/25/17 07/25/17 07/25/17 Range/Units 17:15 17:15 17:15 WBC 11.68 H (4.23-9.07) K/mm3 RBC 5.06 (4.63-6.08) M/mm3 Hgb 14.8 (13.7-17.5) gm/L Hct 45.5 (40.1-51.0) % MCV 89.9 (79.0-92.2) fl MCH 29.2 (25.7-32.2) pg MCHC 32.5 (32.2-35.5) g/dl RDW Std Deviation 52.1 H (35.1-43.9) fL Plt Count 221 (163-337) K/mm3 MPV 8.6 L (9.4-12.3) fl Neutrophils % (Manual) 72 H (40-60) % Band Neutrophils % 0 (0-10) % Lymphocytes % (Manual) 23 (20-40) % Atypical Lymphs % 0 % Monocytes % (Manual) 5 (2-10) % Eosinophils % (Manual) 0 L (0.8-7.0) % Basophils % (Manual) 0 L (0.2-1.2) Nucleated RBCs 1.0 % Platelet Estimate Adequate Plt Morphology Comment Normal RBC Morph Comment Normal PT 34.7 H (8.0-13.0) SECONDS INR 2.97 Puncture Site ABG pH (7.35-7.45) ABG pCO2 (35.0-45.0) mmHg ABG pO2 (80.0-100.0) mmHg ABG HCO3 (22.0-26.0) meq/L ABG O2 Saturation (96.0-97.0) % ABG Base Excess (-2-2.0) Henry Test A-a Gradient mmHg O2 Delivery Device Oxygen Flow Rate FiO2 (21.00-100.00) % Tidal Volume cc PEEP cmH20 Sodium 136 (136-145) mEq/L Potassium 5.0 (3.5-5.1) mEq/L Chloride 101 (98-107) mEq/L Carbon Dioxide 24 (21-32) mEq/L Anion Gap 16.0 H (5-15) BUN 27 H (7-18) mg/dL Creatinine 2.1 H (0.7-1.3) mg/dL Est Cr Clr Drug Dosing 31.31 mL/min Estimated GFR (MDRD) 31 (>60) mL/min BUN/Creatinine Ratio 12.9 L (14-18) Glucose 133 H (83-115) mg/dL Lactic Acid (0.4-2.0) mmol/L Calcium 8.7 (8.5-10.1) mg/dL Total Bilirubin 0.4 (0.2-1.0) mg/dL AST 22 (15-37) U/L ALT 16 (16-63) U/L Alkaline Phosphatase 105 (46-116) U/L CK-MB (CK-2) 0.9 (0-3.6) ng/ml Troponin I < 0.017 (0.00-0.056) ng/mL C-Reactive Protein 0.7 (<1.0) mg/dL NT-Pro-B Natriuret Pep 5162 H (0-450) pg/mL Total Protein 7.4 (6.4-8.2) g/dl Albumin 3.7 (3.4-5.0) g/dl Globulin 3.7 gm/dL Albumin/Globulin Ratio 1.0 (1-2) Urine Color (Yellow) Urine Appearance (Clear) Urine pH (5.0-8.0) Ur Specific [place] (1.005-1.030) Urine Protein (Negative) Urine Glucose (UA) (Negative) Urine Ketones (Negative) Urine Occult Blood (Negative) Urine Nitrite (Negative) Urine Bilirubin (Negative) Urine Urobilinogen (0.2-1.0) Ur Leukocyte Esterase (Negative) Urine RBC (0-5) /hpf Urine WBC (0-5) /hpf Ur Epithelial Cells (0-5) /hpf Urine Bacteria (FEW) /hpf Urine Mucus (FEW) /hpf 07/25/17 07/25/17 07/25/17 Range/Units 17:29 18:10 19:02 WBC (4.23-9.07) K/mm3 RBC (4.63-6.08) M/mm3 Hgb (13.7-17.5) gm/L Hct (40.1-51.0) % MCV (79.0-92.2) fl MCH (25.7-32.2) pg MCHC (32.2-35.5) g/dl RDW Std Deviation (35.1-43.9) fL Plt Count (163-337) K/mm3 MPV (9.4-12.3) fl Neutrophils % (Manual) (40-60) % Band Neutrophils % (0-10) % Lymphocytes % (Manual) (20-40) % Atypical Lymphs % % Monocytes % (Manual) (2-10) % Eosinophils % (Manual) (0.8-7.0) % Basophils % (Manual) (0.2-1.2) Nucleated RBCs % Platelet Estimate Plt Morphology Comment RBC Morph Comment PT (8.0-13.0) SECONDS INR Puncture Site Rt radial Rt radial ABG pH 7.37 7.33 L (7.35-7.45) ABG pCO2 41.8 45.2 H (35.0-45.0) mmHg ABG pO2 84.0 75.0 L (80.0-100.0) mmHg ABG HCO3 23.8 23.3 (22.0-26.0) meq/L ABG O2 Saturation 96.9 94.0 L (96.0-97.0) % ABG Base Excess -0.9 -2.2 L (-2-2.0) Henry Test Positive A-a Gradient 503 381 mmHg O2 Delivery Device Ambu bag Ventilator Oxygen Flow Rate 15.0 FiO2 100.00 80.00 (21.00-100.00) % Tidal Volume 550.0 cc PEEP 5.0 cmH20 Sodium (136-145) mEq/L Potassium (3.5-5.1) mEq/L Chloride (98-107) mEq/L Carbon Dioxide (21-32) mEq/L Anion Gap (5-15) BUN (7-18) mg/dL Creatinine (0.7-1.3) mg/dL Est Cr Clr Drug Dosing mL/min Estimated GFR (MDRD) (>60) mL/min BUN/Creatinine Ratio (14-18) Glucose (83-115) mg/dL Lactic Acid (0.4-2.0) mmol/L Calcium (8.5-10.1) mg/dL Total Bilirubin (0.2-1.0) mg/dL AST (15-37) U/L ALT (16-63) U/L Alkaline Phosphatase (46-116) U/L CK-MB (CK-2) (0-3.6) ng/ml Troponin I (0.00-0.056) ng/mL C-Reactive Protein (<1.0) mg/dL NT-Pro-B Natriuret Pep (0-450) pg/mL Total Protein (6.4-8.2) g/dl Albumin (3.4-5.0) g/dl Globulin gm/dL Albumin/Globulin Ratio (1-2) Urine Color Yellow (Yellow) Urine Appearance Clear (Clear) Urine pH 6.0 (5.0-8.0) Ur Specific [place] 1.020 (1.005-1.030) Urine Protein Negative (Negative) Urine Glucose (UA) Negative (Negative) Urine Ketones Negative (Negative) Urine Occult Blood 1+ H (Negative) Urine Nitrite Negative (Negative) Urine Bilirubin Negative (Negative) Urine Urobilinogen 0.2 (0.2-1.0) Ur Leukocyte Esterase Negative (Negative) Urine RBC 0-5 (0-5) /hpf Urine WBC 0-5 (0-5) /hpf Ur Epithelial Cells 0-5 (0-5) /hpf Urine Bacteria Rare (FEW) /hpf Urine Mucus Not seen (FEW) /hpf 07/25/17 Range/Units 19:55 WBC (4.23-9.07) K/mm3 RBC (4.63-6.08) M/mm3 Hgb (13.7-17.5) gm/L Hct (40.1-51.0) % MCV (79.0-92.2) fl MCH (25.7-32.2) pg MCHC (32.2-35.5) g/dl RDW Std Deviation (35.1-43.9) fL Plt Count (163-337) K/mm3 MPV (9.4-12.3) fl Neutrophils % (Manual) (40-60) % Band Neutrophils % (0-10) % Lymphocytes % (Manual) (20-40) % Atypical Lymphs % % Monocytes % (Manual) (2-10) % Eosinophils % (Manual) (0.8-7.0) % Basophils % (Manual) (0.2-1.2) Nucleated RBCs % Platelet Estimate Plt Morphology Comment RBC Morph Comment PT (8.0-13.0) SECONDS INR Puncture Site ABG pH (7.35-7.45) ABG pCO2 (35.0-45.0) mmHg ABG pO2 (80.0-100.0) mmHg ABG HCO3 (22.0-26.0) meq/L ABG O2 Saturation (96.0-97.0) % ABG Base Excess (-2-2.0) Henry Test A-a Gradient mmHg O2 Delivery Device Oxygen Flow Rate FiO2 (21.00-100.00) % Tidal Volume cc PEEP cmH20 Sodium (136-145) mEq/L Potassium (3.5-5.1) mEq/L Chloride (98-107) mEq/L Carbon Dioxide (21-32) mEq/L Anion Gap (5-15) BUN (7-18) mg/dL Creatinine (0.7-1.3) mg/dL Est Cr Clr Drug Dosing mL/min Estimated GFR (MDRD) (>60) mL/min BUN/Creatinine Ratio (14-18) Glucose (83-115) mg/dL Lactic Acid 1.7 (0.4-2.0) mmol/L Calcium (8.5-10.1) mg/dL Total Bilirubin (0.2-1.0) mg/dL AST (15-37) U/L ALT (16-63) U/L Alkaline Phosphatase (46-116) U/L CK-MB (CK-2) (0-3.6) ng/ml Troponin I (0.00-0.056) ng/mL C-Reactive Protein (<1.0) mg/dL NT-Pro-B Natriuret Pep (0-450) pg/mL Total Protein (6.4-8.2) g/dl Albumin (3.4-5.0) g/dl Globulin gm/dL Albumin/Globulin Ratio (1-2) Urine Color (Yellow) Urine Appearance (Clear) Urine pH (5.0-8.0) Ur Specific [place] (1.005-1.030) Urine Protein (Negative) Urine Glucose (UA) (Negative) Urine Ketones (Negative) Urine Occult Blood (Negative) Urine Nitrite (Negative) Urine Bilirubin (Negative) Urine Urobilinogen (0.2-1.0) Ur Leukocyte Esterase (Negative) Urine RBC (0-5) /hpf Urine WBC (0-5) /hpf Ur Epithelial Cells (0-5) /hpf Urine Bacteria (FEW) /hpf Urine Mucus (FEW) /hpf Meds: Medications Generic Name Dose Route Start Last Admin Trade Name Freq PRN Reason Stop Dose Admin Sodium Chloride 1,000 mls @ 100 mls/hr 07/25/17 18:00 07/25/17 18:35 Normal Saline IV 100 mls/hr ASDIRECTED ANIKA Administration Norepinephrine Bitartrate 4 mg 250 mls @ 7.5 mls/hr 07/25/17 19:45 07/25/17 20:04 / Dextrose/Water IV 4 mcg/min TITRATE ANIKA 15 mls/hr Protocol Titration 2 MCG/MIN Clindamycin Phosphate 900 mg/ 106 mls @ 100 mls/hr 07/25/17 20:20 07/25/17 20 :36 Sodium Chloride IV 07/25/17 21:23 100 mls/hr ONETIME ONE Administration Discontinued Medications Generic Name Dose Route Start Last Admin Trade Name Freq PRN Reason Stop Dose Admin Furosemide 60 mg 07/25/17 19:02 07/25/17 19:11 Lasix IVPUSH 07/25/17 19:03 60 mg NOW ONE Administration Linezolid 600 mg/ Premix 300 mls @ 300 mls/hr 07/25/17 18:44 07/25/17 19:23 IV 07/25/17 19:43 300 mls/hr ONETIME ONE Administration Amiodarone HCl/Dextrose 150 mg 100 mls @ 400 mls/hr 07/25/17 19:04 07/25/17 19:12 / Premix IV 07/25/17 19:18 400 mls/hr NOW ONE Administration Protocol Dextrose/Water Confirm 07/25/17 19:49 07/25/17 19:56 Dextrose 5% In Water Administered 07/25/17 19:50 Not Given Dose 250 mls @ as directed .ROUTE .STK-MED ONE Sodium Chloride 500 mls @ 999 mls/hr 07/25/17 20:28 Normal Saline IV 07/25/17 20:58 .BOLUS ONE Lidocaine HCl 100 mg 07/25/17 19:07 07/25/17 19:16 Xylocaine 2% IVPUSH 07/25/17 19:08 100 mg ONETIME ONE Administration Midazolam HCl 2 mg 07/25/17 19:02 Versed 1 Mg/Ml IVPUSH 07/25/17 19:03 ONETIME ONE Midazolam HCl 2 mg 07/25/17 17:13 07/25/17 19:53 Versed 1 Mg/Ml IVPUSH 07/25/17 17:14 2 mg ONETIME ONE Administration Midazolam HCl 2 mg 07/25/17 17:30 07/25/17 19:54 Versed 1 Mg/Ml IVPUSH 07/25/17 17:31 2 mg ONETIME ONE Administration Midazolam HCl Confirm 07/25/17 20:43 Versed 1 Mg/Ml Administered 07/25/17 20:44 Dose 2 mg .ROUTE .STK-MED ONE Midazolam HCl 2 mg 07/25/17 20:51 07/25/17 20:11 Versed 1 Mg/Ml IVPUSH 07/25/17 20:52 2 mg ONETIME ONE Administration Midazolam HCl Confirm 07/25/17 21:02 Versed 1 Mg/Ml Administered 07/25/17 21:03 Dose 2 mg .ROUTE .STK-MED ONE Midazolam HCl Confirm 07/25/17 21:03 Versed 1 Mg/Ml Administered 07/25/17 21:04 Dose 2 mg .ROUTE .STK-MED ONE Sodium Bicarbonate 50 meq 07/25/17 19:03 07/25/17 19:14 Sodium Bicarbonate 8.4% IVPUSH 07/25/17 19:04 50 meq ONETIME ONE Administration Succinylcholine Chloride 120 mg 07/25/17 17:11 Succinylcholine In Ns Pf IV 07/25/17 17:12 STAT ONE Succinylcholine Chloride 120 mg 07/25/17 17:12 07/25/17 19:33 Quelicin IV 07/25/17 17:13 120 mg ONETIME ONE Administration Vecuronium [place] 8 mg 07/25/17 19:05 07/25/17 19:15 Vecuronium IVPUSH 07/25/17 19:06 8 mg ONETIME ONE Administration Vecuronium [place] 8 mg 07/25/17 20:51 07/25/17 20:12 Vecuronium IVPUSH 07/25/17 20:52 8 mg ONETIME ONE Administration Vecuronium [place] Confirm 07/25/17 21:03 Vecuronium Administered 07/25/17 21:04 Dose 10 mg .ROUTE .[facility] ONE - Radiology Interpretation Free Text/Narrative:: 81-year-old male arrives in the ED unresponsive. Paramedics were called to a local home here in [place] for a man vomiting. Patient went completely unresponsive shortly after their arrival. He was exhibiting a wide-complex tachycardia in the 150s suspicious for ventricular tachycardia. Upon arrival in the ED he was making very poor inspiratory effort and chest revealed rales throughout compatible with acute pulmonary edema. It is suspicious however that he may well of aspirated as apparently is a history of aspiration pneumonia. told the paramedics that he's been vomiting all day long. He required immediate intubation and succinylcholine 150 with Versed 2 mg was given to provide rapid sequence intubation. Intubated first attempt with a 7.5 [place] ET tube at 23 cm at the lip. O2 sats improved slowly with intubation. He was then placed on a ventilator with a tidal volume of 550 mils with a rate of 14 and peak O2 or FiO2 of 80%. PEEP of 5. He continued to have a wide-complex tachycardia and therefore received amiodarone 150 mg IV over 10 minutes. Prior to this he was given 100 mg of lidocaine IV as well. Once the ECG was done that shows atrial fibrillation with a right bundle branch block and left anterior fascicular block pattern her for the wide complex irregular tachycardia. Rate remains in the 1 teens. BP is 101/77. He is not on amiodarone drip at this time. CT of his head is to be done. He is chronically anticoagulated with Coumadin and the excessive vomiting may have precipitated a head bleed. reports that he has not taken his flecainide or any of his cardiac meds today. Labs were collected to include cardiac markers and BNP. Chest x-ray done portable reveals adequate position of the ET tube and the NG tube. The reveals a consolidated pneumonia in the left lower lobe and patches of infiltrates throughout both lobes suspect for aspiration. - Re-Assessments/Exams Free Text/Narrative Re-Assessment/Exam: 07/25/17 18:[address] Cuevas contract associate hospitalist and she will attend the patient in the ED with a view to family consultation as to what their expectations are and see if he is better served in the [facility]. I will start him on Zyvox 600 mg IV as his renal function is not yet back. He is a definitive large pneumonia left lower lobe. The was able to tell me that before he vomited and she called the eminence he was complaining of severe overwhelming chills with rigors. 07/25/17 19:04 CT of the brain is been completed. It reveals advanced senescent changes with dilated lateral ventricles and encephalomalacia both the posterior and anterior horns. There is diffuse small vessel ischemic changes in both basal ganglia. There is no intracranial bleeding or midline shift. 07/25/17 19:27 after discussion with the family members they wish to leave him as a full code. Do what we can for him!. Currently BP is 88 / 69 with a heart rate of 1 10/m wide-complex tachycardia which we know now is atrial fibrillation with a right bundle branch block and left anterior fascicular block. He is on no medications for rate control this time. 07/25/17 19:31 Labs are back. White count is 11.68 with 72% neutrophils and no bands reported. Hemoglobin is 14.8 with hematocrit of 45.5. Platelets are normal at 221,000. PT is 34.7 with an INR of 2.97 i.e. mildly supratherapeutic. Sodium is 136 potassium is 5.0. Chloride 101 bicarbonate is 24. Anion gap is mildly elevated at 16.0 BUN mildly elevated at 27 creatinine is 2.1 with a GFR of 31 i.e. stage III chronic kidney disease. Glucose is 133. Calcium is 8.7 bilirubin 0.4 liver function normal CK-MB fraction is 0.9 troponin I is less than 0.017. C-reactive protein is 0.7 BNP is 5162.. Urinalysis obtained by catheterization reveals no signs of infection. Patient's blood pressure is now 79/54. He will not be able to tolerate any more fluids. He is in significant congestive failure as I felt he was in acute pulmonary edema when he arrived.I will start him on a Start him on levophed drip at 2 mcg/m. and he may be titrated upwards to obtain a mean arterial pressure of 65-70. 07/25/17 19:40 second set of ABGs are available. PH is 7.33 PCO2 is worsening at 45.2 PO2 is 75. Therefore will leave him on 5 of PEEP. . Will increase his rate to 16/min and increased FiO2 to 100%. After discussion with Dr. Cuevas contract associate hospitalist and social welfare research worker decision made that he is too ill for hospital and will likely be in hospital longer than the 96 hour stay limit on critical care hospital. Family wishes him to be transferred for to [facility]. I will phone and try and make arrangements. He would be transported otherwise by ground ambulance. 07/25/17 20:23 Spoke with interactive marketing strategist Dr. Wang at [facility] in [place] and he has accepted care of this patient. He suggest starting a second antibiotic either clindamycin or Zosyn. I chose clindamycin 900 mg IV as there is less potential interaction with his Coumadin. He will thus receive this en route to [place] per ground ambulance. I will give him a 500 male fluid bolus and then run the normal saline at 250 mils per hour to improve his blood pressure. Blood pressure has been as high as 106 systolic but bounces between 85 and 105 on 4 mcg/m of levophed. Lactic acid level was 1.7. 07/25/17 21:12 ambulance is here now to provide transport to [place]. Heart rate is 89 and irregularly irregular with atrial fibrillation wide-complex. BP is currently 80/60. Levophed drip will be increased to 6 mcg/min. he was maintaining a mean arterial pressure of 70 until 5 minutes ago. Paramedics can titrate the Levophed drip as needed. Departure - Departure Time of Disposition: 21:11 Disposition: DC/Tfer to [facility] 02 Reason for Transfer *Q: Other Condition: Critical Clinical Impression: Respiratory arrest, Chronic renal insufficiency, stage III (moderate), Hypotension, Chronic atrial fibrillation with RVR Pneumonia Qualifiers: Pneumonia type: aspiration pneumonia Laterality: left Lung location: lower lobe of lung Congestive heart failure with left ventricular diastolic dysfunction Qualifiers: Congestive heart failure chronicity: acute on chronic Qualified Code(s): I50.33 - Acute on chronic diastolic (congestive) heart failure Referrals: PCP,Unknown [Primary Care Provider] - Forms: ED Department Discharge Additional Instructions: Patient to be admitted to the intensive care unit. Prognosis is extremely guarded. - My Orders Last 24 Hours: My Active Orders 07/25/17 17:26 Nasogastric Orogastric Tube Insertion [OM.PC] Routine 07/25/17 17:40 Ventilator Assessment [RT Ventilator, Adult] [RC] ASDIRECTED 07/25/17 17:46 EKG Documentation Completion [RC] STAT Chest 1V Frontal [CR] Stat 07/25/17 17:47 Blood Culture x2 Reflex Set [OM.PC] Stat 07/25/17 18:00 Sodium Chloride 0.9% [Normal Saline] 1,000 ml IV ASDIRECTED 07/25/17 18:08 CULTURE BLOOD [BC] Stat 07/25/17 18:18 CULTURE BLOOD [BC] Stat 07/25/17 18:46 Urinary Catheter Assessment [RC] ASDIRECTED 07/25/17 19:00 Jerome Catheter Insertion [Insert Urinary Catheter] [OM.PC] Q24H 07/25/17 19:45 Norepinephrine [Levophed] 4 mg Dextrose 5% in Water 246 ml IV TITRATE 07/25/17 20:20 Clindamycin Phosphate [Cleocin] 900 mg Sodium Chloride 0.9% [Normal Saline] 100 ml IV ONETIME - Assessment/Plan Last 24 Hours: My Active Orders 07/25/17 17:26 Nasogastric Orogastric Tube Insertion [OM.PC] Routine 07/25/17 17:40 Ventilator Assessment [RT Ventilator, Adult] [RC] ASDIRECTED 07/25/17 17:46 EKG Documentation Completion [RC] STAT Chest 1V Frontal [CR] Stat 07/25/17 17:47 Blood Culture x2 Reflex Set [OM.PC] Stat 07/25/17 18:00 Sodium Chloride 0.9% [Normal Saline] 1,000 ml IV ASDIRECTED 07/25/17 18:08 CULTURE BLOOD [BC] Stat 07/25/17 18:18 CULTURE BLOOD [BC] Stat 07/25/17 18:46 Urinary Catheter Assessment [RC] ASDIRECTED 07/25/17 19:00 Jerome Catheter Insertion [Insert Urinary Catheter] [OM.PC] Q24H 07/25/17 19:45 Norepinephrine [Levophed] 4 mg Dextrose 5% in Water 246 ml IV TITRATE 07/25/17 20:20 Clindamycin Phosphate [Cleocin] 900 mg Sodium Chloride 0.9% [Normal Saline] 100 ml IV ONETIME
[2017-07-25] MEDS ORDERED: Sodium Chloride 0.9% 1,000 ML IV SCH (18:00)
[2017-07-25] MEDS ORDERED: Linezolid 600 MG in Premix Bag 1 BAG IV ONE (18:44)
[2017-07-25] MEDS ORDERED: Furosemide 100 MG/10 ML SDV IVPUSH ONE (19:02)
[2017-07-25] MEDS ORDERED: Sodium Bicarbonate 8.4% 50 MEQ/50 ML Syringe IVPUSH ONE (19:03)
[2017-07-25] MEDS ORDERED: Amiodarone In Dextrose,Iso-Osm 150 MG in Premix Bag 1 BAG IV ONE ×2 (19:04)
[2017-07-25] MEDS ORDERED: Lidocaine 2% 100 MG/5 ML Syringe IVPUSH ONE (19:07)
--- NOTE | 2017-07-25 19:22 | CT ---
Head Technique: Multiple axial sections through the brain were obtained. Intravenous contrast was not utilized. Comparison: No previous intracranial imaging is available. Findings: Ventricles along with basal cisterns and sulci over the convexities are moderately prominent. Diffuse diminished density is noted within portions of the basal ganglia, periventricular and subcortical white matter compatible with small vessel ischemic demyelination change. No evidence of intracranial hemorrhage. No midline shift or mass effect is seen. Visualized sinuses appear clear. No acute calvarial abnormality is appreciated. Nasogastric tube is partially seen. Impression: 1. Senescent change as described above. 2. Partially visualized nasogastric tube. 3. No acute intracranial abnormality is identified. Diagnostic code #2
[2017-07-25] MEDS ORDERED: Norepinephrine 4 MG in Dextrose 5% in Water 246 ML IV SCH ×2 (19:45)
[2017-07-25] MEDS ORDERED: Dextrose 5% in Water 250 ML ONE (19:49)
[2017-07-25] MEDS ORDERED: Clindamycin Phosphate 900 MG in Sodium Chloride 0.9% 100 ML IV ONE (20:20)
[2017-07-25] MEDS ORDERED: Sodium Chloride 0.9% 500 ML IV ONE (20:28)
[2017-07-25] MEDS ORDERED: Midazolam 1 MG/ML 2 ML SDV ONE ×3 (20:43→21:03)
[2017-07-25] MEDS ORDERED: Midazolam 1 MG/ML 5 ML SDV ONE (20:51)
[2017-07-25] MEDS ORDERED: Midazolam 1 MG/ML 5 ML SDV IVPUSH ONE (20:51)
--- NOTE | 2017-07-26 08:15 | CR ---
Chest: Portable view of the chest was obtained. Comparison: Previous chest x-ray of 12/29/16. Increased density within the right mid and lower lung is seen. Left upper and right lung are clear. Nasogastric tube is seen which is coiled within the stomach and descends off the inferior edge of film into the stomach. Endotracheal tube is seen with tip lying within the mid trachea. Surgical anastomotic sutures are seen within the right hilar region. Impression: 1. Endotracheal tube and nasogastric tube which are felt to be satisfactory in position. 2. Diffuse left sided increased density within the left mid and lower lung which may represent asymmetric pulmonary edema, pneumonia or change from aspiration. Diagnostic code #3
== END 2017-07-25 21:35 ==
LOC: JD.ED 17:07
DX: R09.2 Respiratory arrest (principal); I50.33 Acute on chronic diastolic (congestive) heart failure; N18.3 Chronic kidney disease, stage 3 (moderate); I48.2 Chronic atrial fibrillation; I95.9 Hypotension, unspecified; J18.9 Pneumonia, unspecified organism; K21.9 Gastro-esophageal reflux disease without esophagitis; E78.00 Pure hypercholesterolemia, unspecified; Z85.118 Personal history of other malignant neoplasm of bronchus and lung; Z98.890 Other specified postprocedural states; Z87.891 Personal history of nicotine dependence; Z79.01 Long term (current) use of anticoagulants; Z79.899 Other long term (current) drug therapy
CPT/HCPCS: 31500; 36415; 36600; 70450; 71010; 80053; 81001; 82553; 82803; 83605; 83880; 84484; 85025; 85610; 86140; 87040; 93005; 96361; 96365; 96367; 96368; 96375; 96376; 99285; J0282; J0330; J1940; J2020; J2250; J7030; J7040; J7060; 51702; 93010; J3490

== ENCOUNTER 2017-08-04 20:25 | Inpatient (IN) | payer MEDICARE, BC ==
[2017-08-04] MEDS ORDERED: Sodium Chloride 0.9% 1,000 ML IV SCH (20:45)
[2017-08-04] MEDS: Sodium Chloride 0.9% 10 ML Syringe FLUSH PRN (20:54)
--- NOTE | 2017-08-04 21:06 | EDM.PDOC ---
ED HPI GENERAL MEDICAL PROBLEM - General Chief Complaint: Respiratory Problem Stated Complaint: DEHYDRATED Time Seen by Provider: 08/04/17 20:49 Source of Information: Reports: Patient, Family History Limitations: Reports: Altered Mental Status (Sedated with Ambien) - History of Present Illness INITIAL COMMENTS - FREE TEXT/NARRATIVE: Patient is a 81-year-old male who presents to the ED with concerns of being dehydrated requiring IV fluids. Patient was evaluated here in the ED approximately one week ago due to respiratory failure 2nd to aspiration pneumonia. He was intubated here in [address] and transferred to [facility] and spent approximately 3 days in the ICU. He was discharged yesterday with no antibiotics. Swallow study was obtained indicating the patient should be on a thickened liquid diet. Patient has not been sleeping well for the past 3 days. He was seen by his PCP for post hospital follow-up today at 1:30. Blood work was obtained and the patient was placed on Ambien with instructions to take half tab at night for sleeping. They were notified at 7:00 p.m. to come to the ED. Patient is here for further management of worsening kidney failure, dehydration, and elevated white blood count. Patient is accompanied to the ED with his . When asking the CODE STATUS she is unclear what they determined plan would be. - Related Data Allergies Allergy/AdvReac Type Severity Reaction Status Date / Time No Known Allergies Allergy Verified 08/05/17 00:06 Home Meds: Home Meds Acetaminophen/Diphenhydramine [Tylenol Pm Ex-Strength Caplet] 2 tab PO BEDTIME 02/27/15 [History] Albuterol [Ventolin HFA] 2 puff INH Q6H PRN 02/27/15 [History] Ezetimibe [Zetia] 10 mg PO DAILY 02/27/15 [History] Omeprazole 20 mg PO DAILY 02/27/15 [History] Pravastatin [Pravachol] 40 mg PO DAILY 02/27/15 [History] Budesonide [Pulmicort] 0.5 mg IH BID 11/20/16 [History] Flecainide [Tambocor] 100 mg PO BID 11/20/16 [History] Warfarin [Coumadin] 1 mg PO MOTUWETHSA 11/20/16 [History] Warfarin [Coumadin] 2.5 mg PO SUFR 11/20/16 [History] Umeclidinium Flom [Incruse Ellipta*] 62.5 mcg PO DAILY 12/27/16 [History] Albuterol Sulfate 2.5 mg IH BID 12/28/16 [History] Tamsulosin [Flomax] 0.4 mg PO PCBREAKFAST 12/28/16 [History] Metoprolol Tartrate 25 mg PO BID 08/04/17 [History] Sennosides [Senna] 8.6 mg PO ASDIRECTED PRN 08/04/17 [History] Zolpidem [Ambien] 2.5 mg PO BEDTIME 08/04/17 [History] Past Medical History HEENT History: Reports: Allergic Rhinitis Other HEENT History: Wears glasss. Cardiovascular History: Reports: Afib, High Cholesterol Other Cardiovascular History: ablasion Respiratory History: Reports: Other (See Below) Other Respiratory History: recent pneumonia and resp failure Gastrointestinal History: Reports: GERD Genitourinary History: Reports: Renal Disease Oncologic (Cancer) History: Reports: Lung - Infectious Disease History Infectious Disease History: Reports: Chicken Pox, Measles - Past Surgical History Respiratory Surgical History: Reports: Lung Resection Other Respiratory Surgeries/Procedures: L upper lobectomy Musculoskeletal Surgical History: Reports: Other (See Below) Other Musculoskeletal Surgeries/Procedures:: elbow Social & Family History - Family History Family Medical History: Noncontributory - Tobacco Use Smoking Status *Q: Former Smoker Years of Tobacco use: 50 Packs/Tins Daily: 2 Used Tobacco, but Quit: Yes Month Tobacco Last Used: 2003 Second Hand Smoke Exposure: Yes - Caffeine Use Caffeine Use: Reports: Coffee - Recreational Drug Use Recreational Drug Use: No - Living Situation & Occupation Living situation: Reports: , with Spouse Occupation: Retired ED ROS GENERAL - Review of Systems Review Of Systems: Unable To Obtain ED EXAM, GENERAL - Physical Exam Exam: See Below Exam Limited By: Altered Mental Status (Sedated on Ambien) General Appearance: Lethargic, Other (Patient does answer some questions appropriately.) Eye Exam: Bilateral Eye: Other (Eyes closed.) Ears: Hearing Grossly Normal, Other Throat/Mouth: Other (Oromucosa severely dry.) Head: Atraumatic, Normocephalic Neck: Normal Inspection, Supple, Non-Tender Respiratory/Chest: Lungs Clear, Normal Breath Sounds, No Accessory Muscle Use, Chest Non-Tender, Other (Patient has [place] respirations.) Cardiovascular: Normal Peripheral Pulses, Regular Rate, Rhythm Peripheral Pulses: 2+: Radial (R) (Hands are cold) GI/Abdominal: Normal Bowel Sounds, Soft, Non-Tender, No Organomegaly (Male) Exam: Other (Diaper in place) Extremities: Normal Inspection, Non-Tender, Pedal Edema (Trace edema to lower extremities), Other (Feet are cold) Neurological: Slow to Respond Skin Exam: Warm, Dry, Intact Course - Vital Signs Last Recorded V/S: Last Vital Signs Temp 97.5 F 08/05/17 07:35 Pulse 62 08/05/17 08:03 Resp 32 H 08/05/17 07:35 BP 112/68 08/05/17 08:03 Pulse Ox 96 08/05/17 09:18 - Orders/Labs/Meds Orders: Active Orders 24 hr Category Date Time Status EKG Documentation Completion [RC] STAT Care 08/04/17 21:05 Active Chest 1V Frontal [CR] Stat Exams 08/04/17 20:43 Taken CULTURE BLOOD [BC] Stat Lab 08/04/17 21:20 Received CULTURE BLOOD [BC] Stat Lab 08/04/17 21:50 Results Sodium Chloride 0.9% [Saline Flush] Med 08/04/17 20:43 Active 10 ml FLUSH ASDIRECTED PRN Blood Culture x2 Reflex Set [OM.PC] Stat Oth 08/04/17 20:46 Ordered Peripheral IV Insertion Adult [OM.PC] Stat Oth 08/04/17 20:43 Ordered Medication Orders Acetaminophen (Tylenol) 650 mg PO Q4H PRN PRN Reason: Pain (Mild 1-3)/fever Hydrocodone Bitart/Acetaminophen ([place] 325-5 Mg) 1 tab PO Q4H PRN PRN Reason: Pain (moderate 4-6) Albuterol (Proventil Neb Soln) 2.5 mg NEB BID [facility] Last Admin: 08/05/17 09:18 Dose: 2.5 mg Albuterol/Ipratropium (Duoneb 3.0-0.5 Mg/3 Ml) 3 ml NEB Q4H PRN PRN Reason: Shortness Of Breath/wheezing Bisacodyl (Dulcolax) 5 mg PO DAILY PRN PRN Reason: Constipation Budesonide (Pulmicort) 0.5 mg NEB BID [facility] Last Admin: 08/05/17 09:18 Dose: 0.5 mg Docusate Sodium (Colace) 100 mg PO BID PRN PRN Reason: Constipation Ezetimibe (Zetia) 10 mg PO DAILY [facility] Last Admin: 08/05/17 08:03 Dose: 10 mg Flecainide Acetate (Tambocor) 150 mg PO BID [facility] Hydralazine HCl (Apresoline) 20 mg IVPUSH Q4H PRN PRN Reason: Hypertension Promethazine HCl 12.5 mg/ (Sodium Chloride) 50.5 mls @ 100 mls/hr IV Q6H PRN PRN Reason: Nausea/Vomiting Levofloxacin/Dextrose 750 mg/ (Premix) 150 mls @ 150 mls/hr IV Q48H [facility] Last Admin: 08/05/17 07:56 Dose: 150 mls/hr Sodium Chloride (Normal Saline) 1,000 mls @ 125 mls/hr IV ASDIRECTED [facility] Last Admin: 08/05/17 07:56 Dose: 125 mls/hr Infusion: 08/05/17 07:56 Dose: 125 mls/hr Admin: 08/05/17 00:49 Dose: 125 mls/hr Lorazepam (Ativan) 0.25 mg IV Q6H PRN PRN Reason: Anxiety Magnesium Sulfate (Pharmacy To Dose - Magnesium Replacement) 1 dose .XX ASDIRECTED PRN PRN Reason: RX to Dose Metoprolol Tartrate (Lopressor) 5 mg IVPUSH Q4H PRN PRN Reason: Tachycardia Metoprolol Tartrate (Lopressor) 25 mg PO BID [facility] Last Admin: 08/05/17 08:03 Dose: 25 mg Morphine Sulfate (Morphine) 0.5 mg IVPUSH Q4H PRN PRN Reason: Other Stop: 08/06/17 00:10 Non-Formulary Medication (Umeclidinium Flom) 62.5 mcg PO DAILY [facility] Ondansetron HCl (Zofran) 4 mg IV Q6H PRN PRN Reason: Nausea/Vomiting Pantoprazole Sodium (Protonix) 40 mg PO DAILY@0700 [facility] Last Admin: 08/05/17 07:57 Dose: 40 mg Polyethylene Glycol (Miralax) 17 gm PO DAILY PRN PRN Reason: Constipation Potassium Chloride (Pharmacy To Dose - Potassium Replacement) 1 dose .XX ASDIRECTED PRN PRN Reason: RX to Dose Saccharomyces Boulardii (Florastor) 500 mg PO DAILY [facility] Last Admin: 08/05/17 08:02 Dose: 500 mg Senna/Docusate Sodium (Senna Plus) 1 tab PO BID PRN PRN Reason: Constipation Simvastatin (Zocor) 20 mg PO BEDTIME [facility] Sodium Chloride (Saline Flush) 10 ml FLUSH ASDIRECTED PRN PRN Reason: Keep Vein Open Last Admin: 08/04/17 20:54 Dose: 10 ml Tamsulosin HCl (Flomax) 0.4 mg PO PCBREAKFAST [facility] Last Admin: 08/05/17 09:30 Dose: 0.4 mg Temazepam (Restoril) 7.5 mg PO BEDTIME PRN PRN Reason: Sleep Warfarin Sodium (Coumadin) 1 mg PO MoFr@1800 ANIKA Warfarin Sodium (Coumadin) 2.5 mg PO SuTuWeThSa@1800 [facility] Labs: Laboratory Tests 08/04/17 08/04/17 08/04/17 Range/Units 20:43 20:44 20:44 WBC 23.04 H (4.23-9.07) K/mm3 RBC 4.98 (4.63-6.08) M/mm3 Hgb 14.5 (13.7-17.5) gm/L Hct 45.8 (40.1-51.0) % MCV 92.0 (79.0-92.2) fl MCH 29.1 (25.7-32.2) pg MCHC 31.7 L (32.2-35.5) g/dl RDW Std Deviation 56.5 H (35.1-43.9) fL Plt Count 333 (163-337) K/mm3 MPV 9.2 L (9.4-12.3) fl Neut % (Auto) 76.1 H (34.0-67.9) % Lymph % (Auto) 10.4 L (21.8-53.1) % Heard % (Auto) 5.6 (5.3-12.2) % Eos % (Auto) 0.6 L (0.8-7.0) Baso % (Auto) 0.5 (0.1-1.2) % Neut # (Auto) 17.52 H (1.78-5.38) K/mm3 Lymph # (Auto) 2.40 (1.32-3.57) K/mm3 Heard # (Auto) 1.30 H (0.30-0.82) K/mm3 Eos # (Auto) 0.13 (0.04-0.54) K/mm3 Baso # (Auto) 0.12 H (0.01-0.08) K/mm3 Manual Slide Review Abnormal smear PT (8.0-13.0) SECONDS INR APTT (22-36) SECONDS Puncture Site Lt radial ABG pH 7.42 (7.35-7.45) ABG pCO2 35.0 (35.0-45.0) mmHg ABG pO2 64.0 L (80.0-100.0) mmHg ABG HCO3 22.2 (22.0-26.0) meq/L ABG O2 Saturation 92.8 L (96.0-97.0) % ABG Base Excess -1.2 (-2-2.0) A-a Gradient 26 mmHg O2 Delivery Device Room air Sodium 142 (136-145) mEq/L Potassium 5.1 (3.5-5.1) mEq/L Chloride 102 (98-107) mEq/L Carbon Dioxide 28 (21-32) mEq/L Anion Gap 17.1 H (5-15) BUN 65 H (7-18) mg/dL Creatinine 2.5 H (0.7-1.3) mg/dL Est Cr Clr Drug Dosing 26.30 mL/min Estimated GFR (MDRD) 25 (>60) mL/min BUN/Creatinine Ratio 26.0 H (14-18) Glucose 107 (83-115) mg/dL Calcium 9.6 (8.5-10.1) mg/dL Total Bilirubin 0.8 (0.2-1.0) mg/dL AST 53 H (15-37) U/L ALT 113 H (16-63) U/L Alkaline Phosphatase 90 (46-116) U/L C-Reactive Protein 2.4 H* (<1.0) mg/dL Total Protein 8.2 (6.4-8.2) g/dl Albumin 3.9 (3.4-5.0) g/dl Globulin 4.3 gm/dL Albumin/Globulin Ratio 0.9 L (1-2) Urine Color (Yellow) Urine Appearance (Clear) Urine pH (5.0-8.0) Ur Specific [place] (1.005-1.030) Urine Protein (Negative) Urine Glucose (UA) (Negative) Urine Ketones (Negative) Urine Occult Blood (Negative) Urine Nitrite (Negative) Urine Bilirubin (Negative) Urine Urobilinogen (0.2-1.0) Ur Leukocyte Esterase (Negative) Urine RBC (0-5) /hpf Urine WBC (0-5) /hpf Ur Epithelial Cells (0-5) /hpf Amorphous Sediment (NOT SEEN) /hpf Urine Bacteria (FEW) /hpf Hyaline Casts (0-5) /lpf Urine Mucus (FEW) /hpf 08/04/17 08/04/17 Range/Units 20:44 21:55 WBC (4.23-9.07) K/mm3 RBC (4.63-6.08) M/mm3 Hgb (13.7-17.5) gm/L Hct (40.1-51.0) % MCV (79.0-92.2) fl MCH (25.7-32.2) pg MCHC (32.2-35.5) g/dl RDW Std Deviation (35.1-43.9) fL Plt Count (163-337) K/mm3 MPV (9.4-12.3) fl Neut % (Auto) (34.0-67.9) % Lymph % (Auto) (21.8-53.1) % Heard % (Auto) (5.3-12.2) % Eos % (Auto) (0.8-7.0) Baso % (Auto) (0.1-1.2) % Neut # (Auto) (1.78-5.38) K/mm3 Lymph # (Auto) (1.32-3.57) K/mm3 Heard # (Auto) (0.30-0.82) K/mm3 Eos # (Auto) (0.04-0.54) K/mm3 Baso # (Auto) (0.01-0.08) K/mm3 Manual Slide Review PT 27.9 H (8.0-13.0) SECONDS INR 2.42 APTT 34 (22-36) SECONDS Puncture Site ABG pH (7.35-7.45) ABG pCO2 (35.0-45.0) mmHg ABG pO2 (80.0-100.0) mmHg ABG HCO3 (22.0-26.0) meq/L ABG O2 Saturation (96.0-97.0) % ABG Base Excess (-2-2.0) A-a Gradient mmHg O2 Delivery Device Sodium (136-145) mEq/L Potassium (3.5-5.1) mEq/L Chloride (98-107) mEq/L Carbon Dioxide (21-32) mEq/L Anion Gap (5-15) BUN (7-18) mg/dL Creatinine (0.7-1.3) mg/dL Est Cr Clr Drug Dosing mL/min Estimated GFR (MDRD) (>60) mL/min BUN/Creatinine Ratio (14-18) Glucose (83-115) mg/dL Calcium (8.5-10.1) mg/dL Total Bilirubin (0.2-1.0) mg/dL AST (15-37) U/L ALT (16-63) U/L Alkaline Phosphatase (46-116) U/L C-Reactive Protein (<1.0) mg/dL Total Protein (6.4-8.2) g/dl Albumin (3.4-5.0) g/dl Globulin gm/dL Albumin/Globulin Ratio (1-2) Urine Color Yellow (Yellow) Urine Appearance Clear (Clear) Urine pH 5.5 (5.0-8.0) Ur Specific [place] > or = 1.030 (1.005-1.030) Urine Protein 2+ H (Negative) Urine Glucose (UA) Negative (Negative) Urine Ketones Negative (Negative) Urine Occult Blood 1+ H (Negative) Urine Nitrite Negative (Negative) Urine Bilirubin Negative (Negative) Urine Urobilinogen 0.2 (0.2-1.0) Ur Leukocyte Esterase Negative (Negative) Urine RBC 0-5 (0-5) /hpf Urine WBC 0-5 (0-5) /hpf Ur Epithelial Cells Not seen (0-5) /hpf Amorphous Sediment Moderate H (NOT SEEN) /hpf Urine Bacteria Rare (FEW) /hpf Hyaline Casts 0-5 (0-5) /lpf Urine Mucus Few (FEW) /hpf Meds: Medications Generic Name Dose Route Start Last Admin Trade Name Freq PRN Reason Stop Dose Admin Acetaminophen 650 mg 08/05/17 00:08 Tylenol PO Q4H PRN Pain (Mild 1-3)/fever Hydrocodone Bitart/Acetaminophen 1 tab 08/05/17 00:08 [place] 325-5 Mg PO Q4H PRN Pain (moderate 4-6) Albuterol 2.5 mg 08/05/17 09:00 08/05/17 09:18 Proventil Neb Soln NEB 2.5 mg BID ANIKA Administration Albuterol/Ipratropium 3 ml 08/05/17 00:08 Duoneb 3.0-0.5 Mg/3 Ml NEB Q4H PRN Shortness Of Breath/wheezing Bisacodyl 5 mg 08/05/17 00:08 Dulcolax PO DAILY PRN Constipation Budesonide 0.5 mg 08/05/17 09:00 08/05/17 09:18 Pulmicort NEB 0.5 mg BID ANIKA Administration Docusate Sodium 100 mg 08/05/17 00:08 Colace PO BID PRN Constipation Ezetimibe 10 mg 08/05/17 09:00 08/05/17 08:03 Zetia PO 10 mg DAILY ANIKA Administration Flecainide Acetate 150 mg 08/05/17 21:00 Tambocor PO BID ANIKA Hydralazine HCl 20 mg 08/05/17 00:16 Apresoline IVPUSH Q4H PRN Hypertension Promethazine HCl 12.5 mg/ 50.5 mls @ 100 mls/hr 08/05/17 00:08 Sodium Chloride IV Q6H PRN Nausea/Vomiting Levofloxacin/Dextrose 750 mg/ 150 mls @ 150 mls/hr 08/05/17 07:00 08/05/17 07 :56 Premix IV 150 mls/hr Q48H ANIKA Administration Sodium Chloride 1,000 mls @ 125 mls/hr 08/05/17 00:45 08/05/17 07:56 Normal Saline IV 125 mls/hr ASDIRECTED ANIKA Administration Lorazepam 0.25 mg 08/05/17 00:08 Ativan IV Q6H PRN Anxiety Magnesium Sulfate 1 dose 08/05/17 00:30 Pharmacy To Dose - Magnesium Replacement .XX ASDIRECTED PRN RX to Dose Metoprolol Tartrate 5 mg 08/05/17 00:16 Lopressor IVPUSH Q4H PRN Tachycardia Metoprolol Tartrate 25 mg 08/05/17 09:00 08/05/17 08:03 Lopressor PO 25 mg BID [facility] Administration Morphine Sulfate 0.5 mg 08/05/17 00:08 Morphine IVPUSH 08/06/17 00:10 Q4H PRN Other Non-Formulary Medication 62.5 mcg 08/05/17 09:00 Umeclidinium Flom PO DAILY [facility] Ondansetron HCl 4 mg 08/05/17 00:08 Zofran IV Q6H PRN Nausea/Vomiting Pantoprazole Sodium 40 mg 08/05/17 07:00 08/05/17 07:57 Protonix PO 40 mg DAILY@0700 [facility] Administration Polyethylene Glycol 17 gm 08/05/17 00:08 Miralax PO DAILY PRN Constipation Potassium Chloride 1 dose 08/05/17 00:30 Pharmacy To Dose - Potassium Replacement .XX ASDIRECTED PRN RX to Dose Saccharomyces Boulardii 500 mg 08/05/17 09:00 08/05/17 08:02 Florastor PO 500 mg DAILY [facility] Administration Senna/Docusate Sodium 1 tab 08/05/17 00:08 Senna Plus PO BID PRN Constipation Simvastatin 20 mg 08/05/17 21:00 Zocor PO BEDTIME [facility] Sodium Chloride 10 ml 08/04/17 20:43 08/04/17 20:54 Saline Flush FLUSH 10 ml ASDIRECTED PRN Administration Keep Vein Open Tamsulosin HCl 0.4 mg 08/05/17 10:00 08/05/17 09:30 Flomax PO 0.4 mg PCBREAKFAST [facility] Administration Temazepam 7.5 mg 08/05/17 00:08 Restoril PO BEDTIME PRN Sleep Warfarin Sodium 1 mg 08/07/17 00:18 Coumadin PO MoFr@1800 [facility] Warfarin Sodium 2.5 mg 08/05/17 18:00 Coumadin PO SuTuWeThSa@1800 [facility] Discontinued Medications Generic Name Dose Route Start Last Admin Trade Name Freq PRN Reason Stop Dose Admin Flecainide Acetate 100 mg 08/05/17 09:00 08/05/17 09:52 Tambocor PO Not Given BID [facility] Flecainide Acetate 100 mg 08/05/17 09:30 08/05/17 09:29 Tambocor PO 100 mg BID ANIKA Administration Flecainide Acetate 50 mg 08/05/17 10:34 08/05/17 10:52 Tambocor PO 08/05/17 10:35 50 mg NOW STA Administration Sodium Chloride 1,000 mls @ 250 mls/hr 08/04/17 20:45 08/04/17 20:54 Normal Saline IV 250 mls/hr ASDIRECTED ANIKA Administration Piperacillin Sod/Tazobactam 100 mls @ 200 mls/hr 08/04/17 22:06 08/04/17 22: 15 Sod 4.5 gm/ Sodium Chloride IV 08/04/17 22:35 200 mls/hr ONETIME ONE Administration Vancomycin HCl 1 gm/ Sodium 250 mls @ 250 mls/hr 08/04/17 22:07 08/04/17 23: 00 Chloride IV 08/04/17 23:06 Not Given ONETIME ONE Vancomycin HCl 1 gm/ Sodium 250 mls @ 250 mls/hr 08/04/17 22:32 08/04/17 22: 57 Chloride IV 08/04/17 23:31 250 mls/hr ONETIME ONE Administration Levofloxacin/Dextrose 750 mg/ 150 mls @ 100 mls/hr 08/06/17 09:00 Premix IV Q24H [facility] Dextrose/Sodium Chloride 500 mls @ 999 mls/hr 08/05/17 08:30 Dextrose 5%-1/2 Ns IV 08/05/17 09:00 ASDIRECTED [facility] Lorazepam 0.5 mg 08/05/17 00:17 08/05/17 00:37 Ativan IVPUSH 08/05/17 00:18 0.5 mg ONETIME ONE Administration Pantoprazole Sodium 40 mg 08/05/17 00:30 08/05/17 00:48 Protonix Iv .XX 08/05/17 00:31 40 mg ONETIME ONE Administration Warfarin Sodium 2.5 mg 08/05/17 00:30 08/05/17 09:09 Coumadin PO Not Given SuTuWeThSa@1800 [facility] - Re-Assessments/Exams Free Text/Narrative Re-Assessment/Exam: Per Dr. Castrejon White blood cell count has increased from 14,000 yesterday to 26,000 today with a left shift. Creatinine yesterday was 1.6 increased 2.5 today. BUN was 35 yesterday increased 60 today. Potassium is also increased. He is concerned patient requires IV fluids and readmission to the hospital IV established with normal saline 250 mls per hour. Will have to be дмитрий with IV fluid bolus due to the ventricular heart failure. Initial labs and studies include CBC, chem 14, CRP, blood cultures 2, coag studies, UA with microscopic, chest x-ray one view, EKG, and blood gas. Labs reviewed: White blood cell count 23, hemoglobin 14.5, platelet counts 333, neutrophil percent is 76.1, neutrophil number is 17.52, Blood gas pH 7.42, PCO2 35, PO2 64, HCO3 22, O2 saturations 92.8 on room air, base excess -1.2. Will go ahead and place the patient on 2 L of oxygen via nasal cannula. EKG 2nd degree AV block a rate of 49, right bundle branch block, left anterior physical block, no acute ST changes noted. Chest x-ray reveals infiltrate noted to the left lower lobe. Presumably at this time patient has nosocomial pneumonia. has spoken with family and states patient's CODE STATUS will be no intubation, no medications, just CPR. 08/04/17 22:[address] Sanders conservation worker hospitalist. He agrees to admit the patient. Requested MedSurg with telemetry. Admission will be for nosocomial pneumonia. Agreed with Zosyn 4.5 mg IV and vancomycin 1 g IV. MCG to be obtained. Admission orders will be placed. Departure - Departure Time of Disposition: 22:09 Disposition: Admitted As Inpatient 68 Condition: Poor Clinical Impression: Dehydration, moderate Acute renal failure Qualifiers: Acute renal failure type: unspecified Qualified Code(s): N17.9 - Acute kidney failure, unspecified - Discharge Information - My Orders Last 24 Hours: My Active Orders 08/04/17 20:43 Chest 1V Frontal [CR] Stat Sodium Chloride 0.9% [Saline Flush] 10 ml FLUSH ASDIRECTED PRN Peripheral IV Insertion Adult [OM.PC] Stat 08/04/17 20:46 Blood Culture x2 Reflex Set [OM.PC] Stat 08/04/17 21:05 EKG Documentation Completion [RC] STAT 08/04/17 21:20 CULTURE BLOOD [BC] Stat 08/04/17 21:50 CULTURE BLOOD [BC] Stat - Assessment/Plan Last 24 Hours: My Active Orders 08/04/17 20:43 Chest 1V Frontal [CR] Stat Sodium Chloride 0.9% [Saline Flush] 10 ml FLUSH ASDIRECTED PRN Peripheral IV Insertion Adult [OM.PC] Stat 08/04/17 20:46 Blood Culture x2 Reflex Set [OM.PC] Stat 08/04/17 21:05 EKG Documentation Completion [RC] STAT 08/04/17 21:20 CULTURE BLOOD [BC] Stat 08/04/17 21:50 CULTURE BLOOD [BC] Stat
[2017-08-04] MEDS ORDERED: Piperacillin/Tazobactam 4.5 GM in Sodium Chloride 0.9% 100 ML IV ONE (22:06)
--- NOTE | 2017-08-04 22:50 | PCM.HP ---
H&P History of Present Illness - General Date of Service: 08/04/17 Admit Problem/Dx: Nosocomial PNA Source of Information: Patient, Family, Old Records, Provider, RN Notes Reviewed History Limitations: Reports: Altered Mental Status - History of Present Illness Initial Comments - Free Text/Narative: This is a 81-year-old elderly white male with past medical history of chronic atrial fibrillation on warfarin, hyperlipidemia, GERD, allergic rhinitis, and history of left upper lung cancer status post lobectomy in 2004 who comes in for evaluation of altered mental status and dehydration. Patient was recently discharged from [place] 3 days ago for treatment of acute respiratory failure and pneumonia. On this hospitalization, a swallow test was done and patient was placed on thick liquid diet due to some form of dysphasia. It was unclear however if he had a stroke or may be due to complications from his intubation. Per family, he has not been sleeping well for the past 3 days. He has seen his primary care doctor and just started him on Ambien for insomnia. His overall intake however is poor. He is weak and has not had a good sleep according to his . Patient was brought over here to the emergency department for further workup related to his worsening renal function and poor nutritional state.. His initial workup in the emergency department shows a CBC remarkable for WBC of 23.04, MCHC of 31.7, neutrophils 76.1%, lymphocytes of 10.1%, and eosinophils of 0.6%. His INR level is 2.42. His ABG shows a pH of 7.42, PCO2 of 35, PO2 of 64, HCO3 of 22.2, and O2 sat of 92.8%. His chemistry is remarkable for anion gap of 17.1%, BUN of 65, creatinine of 2.5, AST of 53, ALT of 113, and CRP of 2.4. His UA is negative for UTI +1 for occult blood, 2+ for protein, and with specific gravity of greater than or equal to 1.030. Chest x-ray shows interstitial changes and atelectasis on left lower base. Patient is being admitted for acute renal failure, dehydration, altered mental status and aspiration syndrome. He is CPR only without meds or intubation. - Related Data Allergies/Adverse Reactions: Allergies Allergy/AdvReac Type Severity Reaction Status Date / Time No Known Allergies Allergy Verified 08/05/17 00:06 Home Medications: Home Meds Acetaminophen/Diphenhydramine [Tylenol Pm Ex-Strength Caplet] 2 tab PO BEDTIME 02/27/15 [History] Albuterol [Ventolin HFA] 2 puff INH Q6H PRN 02/27/15 [History] Ezetimibe [Zetia] 10 mg PO DAILY 02/27/15 [History] Omeprazole 20 mg PO DAILY 02/27/15 [History] Pravastatin [Pravachol] 40 mg PO DAILY 02/27/15 [History] Budesonide [Pulmicort] 0.5 mg IH BID 11/20/16 [History] Flecainide [Tambocor] 100 mg PO BID 11/20/16 [History] Warfarin [Coumadin] 1 mg PO MOTUWETHSA 11/20/16 [History] Warfarin [Coumadin] 2.5 mg PO SUFR 11/20/16 [History] Umeclidinium [place] [Incruse Ellipta*] 62.5 mcg PO DAILY 12/27/16 [History] Albuterol Sulfate 2.5 mg IH BID 12/28/16 [History] Tamsulosin [Flomax] 0.4 mg PO PCBREAKFAST 12/28/16 [History] Metoprolol Tartrate 25 mg PO BID 08/04/17 [History] Sennosides [Senna] 8.6 mg PO ASDIRECTED PRN 08/04/17 [History] Zolpidem [Ambien] 2.5 mg PO BEDTIME 08/04/17 [History] Past Medical History HEENT History: Reports: Allergic Rhinitis Other HEENT History: Wears glasss. Cardiovascular History: Reports: Afib, High Cholesterol Other Cardiovascular History: ablasion Respiratory History: Reports: Other (See Below) Other Respiratory History: recent pneumonia and resp failure Gastrointestinal History: Reports: GERD Genitourinary History: Reports: Renal Disease Oncologic (Cancer) History: Reports: Lung - Infectious Disease History Infectious Disease History: Reports: Chicken Pox, Measles - Past Surgical History Respiratory Surgical History: Reports: Lung Resection Other Respiratory Surgeries/Procedures: L upper lobectomy Musculoskeletal Surgical History: Reports: Other (See Below) Other Musculoskeletal Surgeries/Procedures:: elbow Social & Family History - Family History Family Medical History: Noncontributory - Tobacco Use Smoking Status *Q: Former Smoker Years of Tobacco use: 50 Packs/Tins Daily: 2 Used Tobacco, but Quit: Yes Month Tobacco Last Used: 2003 Second Hand Smoke Exposure: Yes - Caffeine Use Caffeine Use: Reports: Coffee - Recreational Drug Use Recreational Drug Use: No - Living Situation & Occupation Living situation: Reports: , with Spouse Occupation: Retired H&P Review of Systems - Review of Systems: Review Of Systems: See Below General: Reports: Weakness. Denies: Fever, Chills, Decreased Appetite HEENT: Reports: No Symptoms Pulmonary: Denies: Shortness of Breath Cardiovascular: Denies: Chest Pain Gastrointestinal: Denies: Abdominal Pain, Nausea, Vomiting Genitourinary: Reports: No Symptoms Musculoskeletal: Reports: No Symptoms Skin: Denies: Cyanosis, Pallor, Diaphoresis, Rash Psychiatric: Denies: Mood Lability, Anxiety Neurological: Reports: Confusion. Denies: Difficulty Walking, Weakness, Gait Disturbance Hematologic/Lymphatic: Reports: No Symptoms Immunologic: Reports: No Symptoms Review of Systems Comment:: ROS limited due to AMS/Sedated Exam - Exam Exam: See Below - Vital Signs Vital Signs: Last Vital Signs Temp 35.4 C 08/04/17 20:33 Pulse 61 08/04/17 20:33 Resp 32 H 08/04/17 20:33 BP 110/72 08/04/17 20:33 Pulse Ox 93 L 08/04/17 20:33 Weight: 89.811 kg - Exam Quality Assessment: Supplemental Oxygen General: Sedated. No: Mild Distress HEENT: Conjunctiva Clear, Mucosa Moist & Rosine, Nares Patent, Normal Nasal Septum , Pupils Equal, Pupils Reactive Neck: Supple, Trachea Midline. No: JVD Lungs: Normal Respiratory Effort, Decreased Breath Sounds Cardiovascular: Regular Rate, Regular Rhythm GI/Abdominal Exam: Normal Bowel Sounds, Soft, Non-Tender, No Organomegaly, No Distention (Male) Exam: Deferred Rectal (Males) Exam: Deferred Back Exam: Normal Inspection Extremities: Normal Inspection, Normal Range of Motion, Non-Tender, Pedal Edema (trace bilateral edema) Peripheral Pulses: 2+: Posterior Tibial (L), Posterior Tibial (R), Dorsalis Pedis (L), Dorsalis Pedis (R) Skin: Warm, Dry, Intact Neuro Extensive - Motor, Sensory, Reflexes: Abnormal Gait. No: CN II-XII Intact (limited due to AMS) Psychiatric: Normal Affect, Normal Mood Physical Exam Comments:: Neurological exam limited due to sedation and inability to follow commands - Patient Data Lab Results Last 24 hrs: Laboratory Results - last 24 hr 08/04/17 08/04/17 08/04/17 Range/Units 20:43 20:44 20:44 WBC 23.04 H (4.23-9.07) K/mm3 RBC 4.98 (4.63-6.08) M/mm3 Hgb 14.5 (13.7-17.5) gm/L Hct 45.8 (40.1-51.0) % MCV 92.0 (79.0-92.2) fl MCH 29.1 (25.7-32.2) pg MCHC 31.7 L (32.2-35.5) g/dl RDW Std Deviation 56.5 H (35.1-43.9) fL Plt Count 333 (163-337) K/mm3 MPV 9.2 L (9.4-12.3) fl Neut % (Auto) 76.1 H (34.0-67.9) % Lymph % (Auto) 10.4 L (21.8-53.1) % [place] % (Auto) 5.6 (5.3-12.2) % Eos % (Auto) 0.6 L (0.8-7.0) Baso % (Auto) 0.5 (0.1-1.2) % Neut # (Auto) 17.52 H (1.78-5.38) K/mm3 Lymph # (Auto) 2.40 (1.32-3.57) K/mm3 Spink # (Auto) 1.30 H (0.30-0.82) K/mm3 Eos # (Auto) 0.13 (0.04-0.54) K/mm3 Baso # (Auto) 0.12 H (0.01-0.08) K/mm3 Manual Slide Review Abnormal smear PT (8.0-13.0) SECONDS INR APTT (22-36) SECONDS Puncture Site Lt radial ABG pH 7.42 (7.35-7.45) ABG pCO2 35.0 (35.0-45.0) mmHg ABG pO2 64.0 L (80.0-100.0) mmHg ABG HCO3 22.2 (22.0-26.0) meq/L ABG O2 Saturation 92.8 L (96.0-97.0) % ABG Base Excess -1.2 (-2-2.0) A-a Gradient 26 mmHg O2 Delivery Device Room air Sodium 142 (136-145) mEq/L Potassium 5.1 (3.5-5.1) mEq/L Chloride 102 (98-107) mEq/L Carbon Dioxide 28 (21-32) mEq/L Anion Gap 17.1 H (5-15) BUN 65 H (7-18) mg/dL Creatinine 2.5 H (0.7-1.3) mg/dL Est Cr Clr Drug Dosing 26.30 mL/min Estimated GFR (MDRD) 25 (>60) mL/min BUN/Creatinine Ratio 26.0 H (14-18) Glucose 107 (83-115) mg/dL Calcium 9.6 (8.5-10.1) mg/dL Total Bilirubin 0.8 (0.2-1.0) mg/dL AST 53 H (15-37) U/L ALT 113 H (16-63) U/L Alkaline Phosphatase 90 (46-116) U/L C-Reactive Protein 2.4 H* (<1.0) mg/dL Total Protein 8.2 (6.4-8.2) g/dl Albumin 3.9 (3.4-5.0) g/dl Globulin 4.3 gm/dL Albumin/Globulin Ratio 0.9 L (1-2) Urine Color (Yellow) Urine Appearance (Clear) Urine pH (5.0-8.0) Ur Specific [place] (1.005-1.030) Urine Protein (Negative) Urine Glucose (UA) (Negative) Urine Ketones (Negative) Urine Occult Blood (Negative) Urine Nitrite (Negative) Urine Bilirubin (Negative) Urine Urobilinogen (0.2-1.0) Ur Leukocyte Esterase (Negative) Urine RBC (0-5) /hpf Urine WBC (0-5) /hpf Ur Epithelial Cells (0-5) /hpf Amorphous Sediment (NOT SEEN) /hpf Urine Bacteria (FEW) /hpf Hyaline Casts (0-5) /lpf Urine Mucus (FEW) /hpf 08/04/17 08/04/17 Range/Units 20:44 21:55 WBC (4.23-9.07) K/mm3 RBC (4.63-6.08) M/mm3 Hgb (13.7-17.5) gm/L Hct (40.1-51.0) % MCV (79.0-92.2) fl MCH (25.7-32.2) pg MCHC (32.2-35.5) g/dl RDW Std Deviation (35.1-43.9) fL Plt Count (163-337) K/mm3 MPV (9.4-12.3) fl Neut % (Auto) (34.0-67.9) % Lymph % (Auto) (21.8-53.1) % Spink % (Auto) (5.3-12.2) % Eos % (Auto) (0.8-7.0) Baso % (Auto) (0.1-1.2) % Neut # (Auto) (1.78-5.38) K/mm3 Lymph # (Auto) (1.32-3.57) K/mm3 [place] # (Auto) (0.30-0.82) K/mm3 Eos # (Auto) (0.04-0.54) K/mm3 Baso # (Auto) (0.01-0.08) K/mm3 Manual Slide Review PT 27.9 H (8.0-13.0) SECONDS INR 2.42 APTT 34 (22-36) SECONDS Puncture Site ABG pH (7.35-7.45) ABG pCO2 (35.0-45.0) mmHg ABG pO2 (80.0-100.0) mmHg ABG HCO3 (22.0-26.0) meq/L ABG O2 Saturation (96.0-97.0) % ABG Base Excess (-2-2.0) A-a Gradient mmHg O2 Delivery Device Sodium (136-145) mEq/L Potassium (3.5-5.1) mEq/L Chloride (98-107) mEq/L Carbon Dioxide (21-32) mEq/L Anion Gap (5-15) BUN (7-18) mg/dL Creatinine (0.7-1.3) mg/dL Est Cr Clr Drug Dosing mL/min Estimated GFR (MDRD) (>60) mL/min BUN/Creatinine Ratio (14-18) Glucose (83-115) mg/dL Calcium (8.5-10.1) mg/dL Total Bilirubin (0.2-1.0) mg/dL AST (15-37) U/L ALT (16-63) U/L Alkaline Phosphatase (46-116) U/L C-Reactive Protein (<1.0) mg/dL Total Protein (6.4-8.2) g/dl Albumin (3.4-5.0) g/dl Globulin gm/dL Albumin/Globulin Ratio (1-2) Urine Color Yellow (Yellow) Urine Appearance Clear (Clear) Urine pH 5.5 (5.0-8.0) Ur Specific [place] > or = 1.030 (1.005-1.030) Urine Protein 2+ H (Negative) Urine Glucose (UA) Negative (Negative) Urine Ketones Negative (Negative) Urine Occult Blood 1+ H (Negative) Urine Nitrite Negative (Negative) Urine Bilirubin Negative (Negative) Urine Urobilinogen 0.2 (0.2-1.0) Ur Leukocyte Esterase Negative (Negative) Urine RBC 0-5 (0-5) /hpf Urine WBC 0-5 (0-5) /hpf Ur Epithelial Cells Not seen (0-5) /hpf Amorphous Sediment Moderate H (NOT SEEN) /hpf Urine Bacteria Rare (FEW) /hpf Hyaline Casts 0-5 (0-5) /lpf Urine Mucus Few (FEW) /hpf Result Diagrams: 08/05/17 06:00 08/05/17 15:55 *Q Meaningful Use (ADM) - VTE *Q VTE Criteria *Q: - Stroke *Q Stroke Criteria *Q: - AMI *Q AMI Criteria *Q: Problem List Initiated/Reviewed/Updated: Yes Orders Last 24hrs: Active Orders 24 hr Category Date Time Status EKG Documentation Completion [RC] STAT Care 08/04/17 21:05 Active Peripheral IV Care [RC] . DIRECTED Care 08/04/17 20:45 Active Chest 1V Frontal [CR] Stat Exams 08/04/17 20:43 Taken CULTURE BLOOD [BC] Stat Lab 08/04/17 21:20 Received CULTURE BLOOD [BC] Stat Lab 08/04/17 21:50 Received Sodium Chloride 0.9% [Normal Saline] 1,000 ml Med 08/04/17 20:45 Active IV ASDIRECTED Sodium Chloride 0.9% [Saline Flush] Med 08/04/17 20:43 Active 10 ml FLUSH ASDIRECTED PRN Vancomycin 1 gm Med 08/04/17 22:07 Active Sodium Chloride 0.9% [Normal Saline] 250 ml IV ONETIME Vancomycin [Vancocin] 1 gm Med 08/04/17 22:32 Active Sodium Chloride 0.9% [Normal Saline] 250 ml IV ONETIME Blood Culture x2 Reflex Set [OM.PC] Stat Oth 08/04/17 20:46 Ordered Peripheral IV Insertion Adult [OM.PC] Stat Oth 08/04/17 20:43 Ordered Medication Orders Sodium Chloride (Normal Saline) 1,000 mls @ 250 mls/hr IV ASDIRECTED ANIKA Last Admin: 08/04/17 20:54 Dose: 250 mls/hr Vancomycin HCl 1 gm/ Sodium (Chloride) 250 mls @ 250 mls/hr IV ONETIME ONE Stop: 08/04/17 23:06 Vancomycin HCl 1 gm/ Sodium (Chloride) 250 mls @ 250 mls/hr IV ONETIME ONE Stop: 08/04/17 23:31 Sodium Chloride (Saline Flush) 10 ml FLUSH ASDIRECTED PRN PRN Reason: Keep Vein Open Last Admin: 08/04/17 20:54 Dose: 10 ml Assessment/Plan Comment:: Assessment/Plan: Acute: AMS - 2/2 Sedation and Dehydration - on Ambien for Insomnia - He seems to be back at baseline Aspiration Syndrome - Current Chest-XR shows atelectasis - Recently completed treatment of acute on chronic lower lobe pneumonia - He carries a hx/o left lung lobectomy and pyrosis - Aspiration Precaution and PPI - IV ATB and Supplemental O2 Non-Oliguric Renal Failure - Acute on Chronic; Likely 2/2 poor oral/fluid intake - He has been switched to thick fluids due possible neha-pharyngeal dysfunction - Has underlying CKD Stage 3 - Spec gravity 1.030 suggestive of dehydration - IV fluids and monitor output Dehydration - 2/2 poor intake - His oral intake has not been good recently - His diet was also changed to thick fluids during his recent hospitalization in [place] - IV hydration and monitor volume status Leukocytosis - Likely 2/2 Aspiration - WBC is 23K - CRP is 2.4 (low) - Treatment as above and will monitor Chronic: AR Atrial Fibrillation on Warfarin GERD HLD Respiratory Failure Hx/o A-Fib/A-Flutter Hx/o Lung CAN S/p Lobectomy Hx/o Recurrent PNA Insomnia Plan: Admit to Med-Surge With Tele Resume Home Meds PT/OT/RT consult CM/SW for d/c planning Swallow eval in AM Aspiration/Fall Precautions Code status: CPR only but no Meds or Intubation
[2017-08-05] MEDS ORDERED: Acetaminophen/HYDROcodone 325-5 MG Tab PO PRN (00:08)
[2017-08-05] MEDS ORDERED: LORazepam 2 MG/ML MDV IV PRN (00:08)
[2017-08-05] MEDS ORDERED: Promethazine 12.5 MG in Sodium Chloride 0.9% 50 ML IV PRN (00:08)
[2017-08-05] MEDS ORDERED: Acetaminophen 325 MG Tab PO PRN (00:08)
[2017-08-05] MEDS ORDERED: Albuterol/Ipratropium 3.0-0.5 MG/3 ML Neb Soln NEB PRN (00:08)
[2017-08-05] MEDS ORDERED: Temazepam 7.5 MG Cap PO PRN (00:08)
[2017-08-05] MEDS ORDERED: Polyethylene Glycol 3350 Powder 17 GM Packet PO PRN (00:08)
[2017-08-05] MEDS ORDERED: Morphine 2 MG/ML Syringe IVPUSH PRN (00:08)
[2017-08-05] MEDS ORDERED: Bisacodyl 5 MG Tab PO PRN (00:08)
[2017-08-05] MEDS ORDERED: Metoprolol Tartrate 5 MG/5 ML SDV IVPUSH PRN (00:16)
[2017-08-05] MEDS ORDERED: hydrALAZINE 20 MG/ML SDV IVPUSH PRN (00:16)
[2017-08-05] MEDS ORDERED: LORazepam 2 MG/ML MDV IVPUSH ONE (00:17)
[2017-08-05] MEDS ORDERED: Warfarin 2.5 MG Tab PO SCH (00:30)
[2017-08-05] MEDS: Pantoprazole 40 MG Vial ONE ×2 (00:46→00:48)
[2017-08-05] MEDS: Sodium Chloride 0.9% 1,000 ML IV SCH ×3 (00:49→16:40)
[2017-08-05] MEDS: Levofloxacin/Dextrose 5%-Water 750 MG in Premix Bag 1 BAG IV SCH (07:56)
[2017-08-05] MEDS: Pantoprazole 40 MG Tab.CR PO SCH (07:57)
[2017-08-05] MEDS: Saccharomyces Boulardii (Probiotic) 250 MG Cap PO SCH (08:02)
[2017-08-05] MEDS: Ezetimibe 10 MG Tab PO SCH (08:03)
[2017-08-05] MEDS: Metoprolol Tartrate 25 MG Tab PO SCH ×2 (08:03→21:06)
--- NOTE | 2017-08-05 08:22 | PCM.PN ---
- General Info Date of Service: 08/05/17 Admission Dx/Problem (Free Text): Nosocomial PNA Subjective Update: Follow Up Functional Status: Reports: Pain Controlled, Tolerating Diet, Urinating. Denies : New Symptoms - Review of Systems General: Denies: Fever, Weakness, Fatigue, Malaise, Chills HEENT: Reports: No Symptoms Pulmonary: Denies: Shortness of Breath Cardiovascular: Denies: Chest Pain Gastrointestinal: Denies: Abdominal Pain, Nausea, Vomiting Genitourinary: Reports: No Symptoms Musculoskeletal: Reports: No Symptoms Skin: Denies: Cyanosis, Pallor, Diaphoresis Neurological: Denies: Confusion, Difficulty Walking, Weakness, Gait Disturbance Psychiatric: Denies: Depression, Anxiety, Agitation, Hallucinations Systems Review Comment:: No overnight or acuet issues. He slept pretty good. He feels and looks better. His renal function is about the same with increased sodium level as high at 148. He wants to go home today with family. His vitals are stable. - Patient Data Vitals - Most Recent: Last Vital Signs Temp 36.4 C 08/04/17 23:15 Pulse 62 08/05/17 08:03 Resp 36 H 08/04/17 23:15 BP 112/68 08/05/17 08:03 Pulse Ox 97 08/04/17 23:15 Weight - Most Recent: 89.811 kg I&O - Last 24 Hours: Intake & Output 08/04/17 08/05/17 08/05/17 22:59 06:59 14:59 Intake Total 1097 Balance 1097 Lab Results Last 24 Hours: Laboratory Results - last 24 hr 08/05/17 08/05/17 08/05/17 Range/Units 06:00 06:00 06:00 WBC 18.88 H (4.23-9.07) K/mm3 RBC 4.40 L (4.63-6.08) M/mm3 Hgb 12.8 L (13.7-17.5) gm/L Hct 40.8 (40.1-51.0) % MCV 92.7 H (79.0-92.2) fl MCH 29.1 (25.7-32.2) pg MCHC 31.4 L (32.2-35.5) g/dl RDW Std Deviation 55.6 H (35.1-43.9) fL Plt Count 272 (163-337) K/mm3 MPV 9.2 L (9.4-12.3) fl Neut % (Auto) 78.8 H (34.0-67.9) % Lymph % (Auto) 6.8 L (21.8-53.1) % [place] % (Auto) 6.4 (5.3-12.2) % Eos % (Auto) 0.6 L (0.8-7.0) Baso % (Auto) 0.4 (0.1-1.2) % Neut # (Auto) 14.88 H (1.78-5.38) K/mm3 Lymph # (Auto) 1.28 L (1.32-3.57) K/mm3 [place] # (Auto) 1.21 H (0.30-0.82) K/mm3 Eos # (Auto) 0.11 (0.04-0.54) K/mm3 Baso # (Auto) 0.07 (0.01-0.08) K/mm3 Manual Slide Review Abnormal smear PT 24.8 H (8.0-13.0) SECONDS INR 2.17 Sodium 148 H (136-145) mEq/L Potassium 4.9 (3.5-5.1) mEq/L Chloride 109 H (98-107) mEq/L Carbon Dioxide 27 (21-32) mEq/L Anion Gap 16.9 H (5-15) BUN 63 H (7-18) mg/dL Creatinine 2.3 H (0.7-1.3) mg/dL Est Cr Clr Drug Dosing 28.58 mL/min Estimated GFR (MDRD) 28 (>60) mL/min BUN/Creatinine Ratio 27.4 H (14-18) Glucose 84 (83-115) mg/dL Calcium 8.7 (8.5-10.1) mg/dL Magnesium 2.2 (1.8-2.4) mg/dl C-Reactive Protein 2.5 H* (<1.0) mg/dL Med Orders - Current: Current Medications Acetaminophen (Tylenol) 650 mg PO Q4H PRN PRN Reason: Pain (Mild 1-3)/fever Hydrocodone Bitart/Acetaminophen ([place] 325-5 Mg) 1 tab PO Q4H PRN PRN Reason: Pain (moderate 4-6) Albuterol (Proventil Neb Soln) 2.5 mg NEB BID [facility] Albuterol/Ipratropium (Duoneb 3.0-0.5 Mg/3 Ml) 3 ml NEB Q4H PRN PRN Reason: Shortness Of Breath/wheezing Bisacodyl (Dulcolax) 5 mg PO DAILY PRN PRN Reason: Constipation Budesonide (Pulmicort) 0.5 mg NEB BID [facility] Docusate Sodium (Colace) 100 mg PO BID PRN PRN Reason: Constipation Ezetimibe (Zetia) 10 mg PO DAILY [facility] Last Admin: 08/05/17 08:03 Dose: 10 mg Flecainide Acetate (Tambocor) 100 mg PO BID [facility] Hydralazine HCl (Apresoline) 20 mg IVPUSH Q4H PRN PRN Reason: Hypertension Promethazine HCl 12.5 mg/ (Sodium Chloride) 50.5 mls @ 100 mls/hr IV Q6H PRN PRN Reason: Nausea/Vomiting Levofloxacin/Dextrose 750 mg/ (Premix) 150 mls @ 150 mls/hr IV Q48H [facility] Last Admin: 08/05/17 07:56 Dose: 150 mls/hr Sodium Chloride (Normal Saline) 1,000 mls @ 125 mls/hr IV ASDIRECTED [facility] Last Admin: 08/05/17 07:56 Dose: 125 mls/hr Lorazepam (Ativan) 0.25 mg IV Q6H PRN PRN Reason: Anxiety Magnesium Sulfate (Pharmacy To Dose - Magnesium Replacement) 1 dose .XX ASDIRECTED [facility] Metoprolol Tartrate (Lopressor) 5 mg IVPUSH Q4H PRN PRN Reason: Tachycardia Metoprolol Tartrate (Lopressor) 25 mg PO BID [facility] Last Admin: 08/05/17 08:03 Dose: 25 mg Morphine Sulfate (Morphine) 0.5 mg IVPUSH Q4H PRN PRN Reason: Other Stop: 08/06/17 00:10 Non-Formulary Medication (Umeclidinium [place]) 62.5 mcg PO DAILY [facility] Ondansetron HCl (Zofran) 4 mg IV Q6H PRN PRN Reason: Nausea/Vomiting Pantoprazole Sodium (Protonix) 40 mg PO DAILY@0700 [facility] Last Admin: 08/05/17 07:57 Dose: 40 mg Polyethylene Glycol (Miralax) 17 gm PO DAILY PRN PRN Reason: Constipation Potassium Chloride (Pharmacy To Dose - Potassium Replacement) 1 dose .XX ASDIRECTED [facility] Saccharomyces Boulardii (Florastor) 500 mg PO DAILY [facility] Last Admin: 08/05/17 08:02 Dose: 500 mg Senna/Docusate Sodium (Senna Plus) 1 tab PO BID PRN PRN Reason: Constipation Simvastatin (Zocor) 20 mg PO BEDTIME [facility] Sodium Chloride (Saline Flush) 10 ml FLUSH ASDIRECTED PRN PRN Reason: Keep Vein Open Last Admin: 08/04/17 20:54 Dose: 10 ml Tamsulosin HCl (Flomax) 0.4 mg PO PCBREAKFAST [facility] Temazepam (Restoril) 7.5 mg PO BEDTIME PRN PRN Reason: Sleep Warfarin Sodium (Coumadin) 1 mg PO MoFr@1800 [facility] Warfarin Sodium (Coumadin) 2.5 mg PO SuTuWeThSa@1800 [facility] Discontinued Medications Sodium Chloride (Normal Saline) 1,000 mls @ 250 mls/hr IV ASDIRECTED [facility] Last Admin: 08/04/17 20:54 Dose: 250 mls/hr Piperacillin Sod/Tazobactam (Sod 4.5 gm/ Sodium Chloride) 100 mls @ 200 mls/hr IV ONETIME ONE Stop: 08/04/17 22:35 Last Admin: 08/04/17 22:15 Dose: 200 mls/hr Vancomycin HCl 1 gm/ Sodium (Chloride) 250 mls @ 250 mls/hr IV ONETIME ONE Stop: 08/04/17 23:06 Last Admin: 08/04/17 23:00 Dose: Not Given Vancomycin HCl 1 gm/ Sodium (Chloride) 250 mls @ 250 mls/hr IV ONETIME ONE Stop: 08/04/17 23:31 Last Admin: 08/04/17 22:57 Dose: 250 mls/hr Levofloxacin/Dextrose 750 mg/ (Premix) 150 mls @ 100 mls/hr IV Q24H [facility] Lorazepam (Ativan) 0.5 mg IVPUSH ONETIME ONE Stop: 08/05/17 00:18 Last Admin: 08/05/17 00:37 Dose: 0.5 mg Pantoprazole Sodium (Protonix Iv) 40 mg .XX ONETIME ONE Stop: 08/05/17 00:31 Last Admin: 08/05/17 00:48 Dose: 40 mg Warfarin Sodium (Coumadin) 2.5 mg PO SuTuWeThSa@1800 [facility] - Exam Quality Assessment: Supplemental Oxygen General: Alert, Cooperative, No Acute Distress HEENT: Pupils Equal, Pupils Reactive, EOMI, Mucous Membr. Moist/[place] Neck: Supple, Trachea Midline, No JVD, No Thyromegaly Lungs: Normal Respiratory Effort, Decreased Breath Sounds Cardiovascular: Regular Rate, Regular Rhythm GI/Abdominal Exam: Normal Bowel Sounds, Soft, Non-Tender, No Organomegaly, No Distention, No Abnormal Bruit (Male) Exam: Deferred Back Exam: Normal Inspection, Decreased Range of Motion Extremities: Normal Inspection, Normal Range of Motion, Non-Tender, No Pedal Edema, Normal Capillary Refill Peripheral Pulses: 2+: Dorsalis Pedis (L), Dorsalis Pedis (R) Skin: Warm, Dry, Intact Wound/Incisions: Healing Well Neurological: No New Focal Deficit Psy/Mental Status: Alert, Normal Affect, Normal Mood - Problem List Review Problem List Initiated/Reviewed/Updated: Yes - My Orders Last 24 Hours: My Active Orders 08/05/17 00:08 Height and Weight [RC] 04 Oxygen Therapy [RC] PRN Up With Assistance [RC] ASDIRECTED Up ad [place] [RC] ASDIRECTED VTE/DVT Education [RC] PER UNIT ROUTINE Vital Signs [RC] Q4H Acetaminophen [Tylenol] 650 mg PO Q4H PRN Acetaminophen/HYDROcodone [[place] 325-5 MG] 1 tab PO Q4H PRN Albuterol/Ipratropium [DuoNeb 3.0-0.5 MG/3 ML] 3 ml NEB Q4H PRN Bisacodyl [Dulcolax] 5 mg PO DAILY PRN Docusate Sodium [Colace] 100 mg PO BID PRN Docusate Sodium/Sennosides [Senna Plus] 1 tab PO BID PRN LORazepam [Ativan] 0.25 mg IV Q6H PRN Morphine 0.5 mg IVPUSH Q4H PRN Ondansetron [Zofran] 4 mg IV Q6H PRN Polyethylene Glycol 3350 [MiraLAX] 17 gm PO DAILY PRN Promethazine [Phenergan] 12.5 mg Sodium Chloride 0.9% [Normal Saline] 50 ml IV Q6H Temazepam [Restoril] 7.5 mg PO BEDTIME PRN Resuscitation Status Routine 08/05/17 00:09 Cardiac Monitoring [RC] CONTINUOUS Intake and Output [RC] 04,16 Pulse Oximetry [RC] PRN 08/05/17 00:12 RT Aerosol Therapy [RC] ASDIRECTED 08/05/17 00:13 Consult to Case Management [CONS] Routine Consult to Transit Worker [CONS] Routine OT Evaluation and Treatment [CONS] Routine PT Evaluation and Treatment [CONS] Routine Respiratory Care Assess and Treatment [CONS] Routine ENVIRONMENT[facility] HEALTH AND SAF[employer]Y INTERN Evaluation and Treatment [CONS] Routine CULTURE SPUTUM + SMEAR [RM] Stat 08/05/17 00:15 Incentive Spirometry [RT Incentive Spirometry] [RC] ASDIRECTED 08/05/17 00:16 Metoprolol Tartrate [Lopressor] 5 mg IVPUSH Q4H PRN hydrALAZINE [Apresoline] 20 mg IVPUSH Q4H PRN 08/05/17 00:20 Precautions [COMM] Routine 08/05/17 00:30 Magnesium Rep Pharmacy to Dose [Pharmacy to Dose - Magnesium Replacement] 1 dose .XX ASDIRECTED Potassium Rep Pharmacy to Dose [Pharmacy to Dose - Potassium Replacement] 1 dose .XX ASDIRECTED 08/05/17 00:45 Sodium Chloride 0.9% [Normal Saline] 1,000 ml IV ASDIRECTED 08/05/17 07:00 Levofloxacin/Dextrose 5%-Water [Levaquin in D5W 750 MG/150 ML] 750 mg Premix Bag 1 bag IV Q48H Pantoprazole [ProTONIX] 40 mg PO DAILY@0700 08/05/17 09:00 Albuterol [Proventil Neb Soln] 2.5 mg NEB BID Budesonide [Pulmicort] 0.5 mg NEB BID Ezetimibe [Zetia] 10 mg PO DAILY Flecainide [Tambocor] 100 mg PO BID Metoprolol Tartrate [Lopressor] 25 mg PO BID Saccharomyces Boulardii [Florastor] 500 mg PO DAILY Umeclidinium [place] 62.5 mcg PO DAILY 08/05/17 10:00 Tamsulosin [Flomax] 0.4 mg PO PCBREAKFAST 08/05/17 18:00 Warfarin [Coumadin] 2.5 mg PO SuTuWeThSa@1800 08/05/17 21:00 Simvastatin [Zocor] 20 mg PO BEDTIME 08/05/17 Breakfast Full Liquid Diet [DIET] 08/06/17 05:11 BASIC METABOLIC PANEL,BMP [CHEM] AM C-REACTIVE PROTEIN [CHEM] AM CBC WITH AUTO DIFF [HEME] AM INR,PT,PROTHROMBIN TIME [COAG] DAILY MAGNESIUM [CHEM] AM 08/07/17 00:18 Warfarin [Coumadin] 1 mg PO MoFr@1800 08/07/17 05:11 BASIC METABOLIC PANEL,BMP [CHEM] AM C-REACTIVE PROTEIN [CHEM] AM CBC WITH AUTO DIFF [HEME] AM INR,PT,PROTHROMBIN TIME [COAG] DAILY MAGNESIUM [CHEM] AM 08/08/17 05:11 BASIC METABOLIC PANEL,BMP [CHEM] AM C-REACTIVE PROTEIN [CHEM] AM CBC WITH AUTO DIFF [HEME] AM INR,PT,PROTHROMBIN TIME [COAG] DAILY MAGNESIUM [CHEM] AM 08/09/17 05:11 BASIC METABOLIC PANEL,BMP [CHEM] AM C-REACTIVE PROTEIN [CHEM] AM INR,PT,PROTHROMBIN TIME [COAG] DAILY MAGNESIUM [CHEM] AM - Plan Plan:: Assessment/Plan: Acute: Left Lower Lobe 2.2 Centimeter Mass - Has Hx/o Lung CA S/p Lung Lobectomy - New since prior CT scan (11/2016) - Recommend histologic sampling - Follow up with Dr. Riley in [place] Aspiration Syndrome - Current Chest-XR shows atelectasis - CT scan; shows emphysema and bibasialr fibrosis; no obvious infiltrate - Recently completed treatment of acute on chronic lower lobe pneumonia - He carries a hx/o left lung lobectomy and pyrosis - Aspiration Precaution and PPI - Change IV ATB to low dose 250 mg iV levadauin Daily for pharmacy to dose - Continue Supplemental O2 Non-Oliguric Renal Failure - Acute on Chronic; Likely 2/2 poor oral/fluid intake - He has been switched to thick fluids due possible neha-pharyngeal dysfunction - Has underlying CKD Stage 3 - Spec gravity 1.030 suggestive of dehydration - Cr 2.5-->2.3 - Continue IV fluids and monitor output - Repeat lab this afternoon Leukocytosis, Improving - Likely 2/2 Aspiration - WBC is 23K --> 18.88 - CRP is 2.4--> 2.5 remains (low) - Treatment as above and will monitor Dysphagia - Had was recently intubation in [place] - [facility] HE[employer]AF[employer] INTERN following - Diet NDD1/Pureed Generalized Weakness - 2/2 Above - PT recommend SNF/Rehab Resolved: S/p AMS - 2/2 Sedation and Dehydration - on Ambien for Insomnia - He seems to be back at baseline Dehydration - 2/2 poor intake - His oral intake has not been good recently - His diet was also changed to thick fluids during his recent hospitalization in [place] - IV hydration and monitor volume status Chronic: AR Atrial Fibrillation on Warfarin GERD HLD Respiratory Failure Hx/o Lung CAN S/p Lobectomy Hx/o Recurrent PNA Insomnia Plan: He is clinically much better Continue current treatment Video Swallow Study likely Monday Continue PT/OT/RT CM/SW for d/c planning Aspiration/Fall Precautions Recommend SNF/Rehab Code status: CPR only but no Meds or Intubation LOS anticipate > 96 hrs due to possible SNF/Rehab placement Spoke to all children (4 boys) and his today. Updated them about his clinical progress and our recommendations for rehab/snf placement. He is generally weak and could use more neha-pharyngeal exercise to improve his swallowing. He is high fall and aspiration risk.
[2017-08-05] MEDS ORDERED: Dextrose 5%-0.45% NaCl 500 ML IV SCH (08:30)
[2017-08-05] MEDS ORDERED: Flecainide 100 MG Tab PO SCH (09:00)
[2017-08-05] MEDS: Budesonide 0.5 MG/2 ML Neb Susp NEB SCH ×2 (09:18→20:50)
[2017-08-05] MEDS: Albuterol 0.083% 2.5 MG/3 ML Neb Soln NEB SCH ×2 (09:18→20:49)
[2017-08-05] MEDS ORDERED: Flecainide 50 MG Tab PO SCH (09:30)
[2017-08-05] MEDS: Tamsulosin 0.4 MG Cap.ER PO SCH (09:30)
--- NOTE | 2017-08-05 10:33 | PCM.SN ---
- Free Text/Narrative Note: Patient appears to be in and out of V-Tach on telemetry. His electrolytes are normal. His EKG this am shows sinus tach with irregular rate and prolonged LALA. Patient takes Flecainide 100 mg po BID and Metoprolol 25 mg po BID for maintenance medications. Will check his flecainide level and add 50 mg po x1 now and continue to monitor. Patient looks comfortable and in no acute distress.
[2017-08-05] MEDS ORDERED: Flecainide 50 MG Tab PO STA (10:34)
[2017-08-05] MEDS: Warfarin 2.5 MG Tab PO SCH (17:19)
[2017-08-05] MEDS: Flecainide 50 MG Tab PO SCH (21:07)
[2017-08-05] MEDS: Simvastatin 20 MG Tab PO SCH (21:07)
[2017-08-06] MEDS: Sodium Chloride 0.9% 1,000 ML IV SCH ×2 (00:06→17:21)
[2017-08-06] MEDS: Pantoprazole 40 MG Tab.CR PO SCH (06:24)
[2017-08-06] MEDS: Albuterol 0.083% 2.5 MG/3 ML Neb Soln NEB SCH ×2 (08:21→21:01)
[2017-08-06] MEDS: Budesonide 0.5 MG/2 ML Neb Susp NEB SCH ×2 (08:21→21:01)
--- NOTE | 2017-08-06 08:22 | PCM.PN ---
- General Info Date of Service: 08/06/17 Admission Dx/Problem (Free Text): Nosocomial PNA Subjective Update: Follow Up Functional Status: Reports: Pain Controlled, Tolerating Diet, Ambulating, Urinating. Denies: New Symptoms - Review of Systems General: Reports: Weakness. Denies: Fever, Chills HEENT: Reports: No Symptoms Pulmonary: Reports: Shortness of Breath (baseline), Cough Cardiovascular: Reports: Dyspnea on Exertion (baseline). Denies: Chest Pain, Palpitations, Lightheadedness Gastrointestinal: Reports: Difficulty Swallowing. Denies: Abdominal Pain, Nausea, Vomiting Genitourinary: Reports: No Symptoms Musculoskeletal: Reports: No Symptoms Skin: Denies: Cyanosis, Mottled, Pallor, Diaphoresis, Rash Neurological: Reports: Weakness. Denies: Confusion, Difficulty Walking, Gait Disturbance Psychiatric: Denies: Depression, Anxiety, Agitation, Hallucinations Systems Review Comment:: No significant overnight or acute issues. He slept well w/o sleeping pills. He is at 1-1.5L NC sating at 91-94%. HR was fin overnight per nurse. He however had some fine crackles and his weight went up to 4 lbs. Patient feels good. He reports no new complaints. His overall labs this morning are better. - Patient Data Vitals - Most Recent: Last Vital Signs Temp 36.4 C 08/06/17 07:54 Pulse 95 08/06/17 07:54 Resp 20 08/06/17 07:54 BP 93/64 08/06/17 07:54 Pulse Ox 94 L 08/06/17 07:54 Weight - Most Recent: 90.22 kg I&O - Last 24 Hours: Intake & Output 08/05/17 08/06/17 08/06/17 22:59 06:59 14:59 Intake Total 1827 1743 Output Total 955 840 Balance 872 903 Lab Results Last 24 Hours: Laboratory Results - last 24 hr 08/05/17 08/06/17 08/06/17 Range/Units 15:55 05:40 05:40 WBC 12.61 H (4.23-9.07) K/mm3 RBC 4.23 L (4.63-6.08) M/mm3 Hgb 12.4 L (13.7-17.5) gm/L Hct 39.1 L (40.1-51.0) % MCV 92.4 H (79.0-92.2) fl MCH 29.3 (25.7-32.2) pg MCHC 31.7 L (32.2-35.5) g/dl RDW Std Deviation 55.2 H (35.1-43.9) fL Plt Count 230 (163-337) K/mm3 MPV 9.0 L (9.4-12.3) fl Neut % (Auto) 78.5 H (34.0-67.9) % Lymph % (Auto) 7.3 L (21.8-53.1) % [place] % (Auto) 8.1 (5.3-12.2) % Eos % (Auto) 0.8 (0.8-7.0) Baso % (Auto) 0.2 (0.1-1.2) % Neut # (Auto) 9.90 H (1.78-5.38) K/mm3 Lymph # (Auto) 0.92 L (1.32-3.57) K/mm3 [place] # (Auto) 1.02 H (0.30-0.82) K/mm3 Eos # (Auto) 0.10 (0.04-0.54) K/mm3 Baso # (Auto) 0.03 (0.01-0.08) K/mm3 Manual Slide Review Abnormal smear PT (8.0-13.0) SECONDS INR Sodium 147 H 148 H (136-145) mEq/L Potassium 4.5 4.3 (3.5-5.1) mEq/L Chloride 110 H 111 H (98-107) mEq/L Carbon Dioxide 27 28 (21-32) mEq/L Anion Gap 14.5 13.3 (5-15) BUN 54 H 44 H (7-18) mg/dL Creatinine 2.0 H 1.8 H (0.7-1.3) mg/dL Est Cr Clr Drug Dosing 32.87 36.52 mL/min Estimated GFR (MDRD) 32 37 (>60) mL/min BUN/Creatinine Ratio 27.0 H 24.4 H (14-18) Glucose 109 88 (83-115) mg/dL Calcium 8.5 8.5 (8.5-10.1) mg/dL Magnesium 1.9 (1.8-2.4) mg/dl C-Reactive Protein 4.2 H* (<1.0) mg/dL 08/06/17 Range/Units 05:40 WBC (4.23-9.07) K/mm3 RBC (4.63-6.08) M/mm3 Hgb (13.7-17.5) gm/L Hct (40.1-51.0) % MCV (79.0-92.2) fl MCH (25.7-32.2) pg MCHC (32.2-35.5) g/dl RDW Std Deviation (35.1-43.9) fL Plt Count (163-337) K/mm3 MPV (9.4-12.3) fl Neut % (Auto) (34.0-67.9) % Lymph % (Auto) (21.8-53.1) % [place] % (Auto) (5.3-12.2) % Eos % (Auto) (0.8-7.0) Baso % (Auto) (0.1-1.2) % Neut # (Auto) (1.78-5.38) K/mm3 Lymph # (Auto) (1.32-3.57) K/mm3 [place] # (Auto) (0.30-0.82) K/mm3 Eos # (Auto) (0.04-0.54) K/mm3 Baso # (Auto) (0.01-0.08) K/mm3 Manual Slide Review PT 28.4 H (8.0-13.0) SECONDS INR 2.46 Sodium (136-145) mEq/L Potassium (3.5-5.1) mEq/L Chloride (98-107) mEq/L Carbon Dioxide (21-32) mEq/L Anion Gap (5-15) BUN (7-18) mg/dL Creatinine (0.7-1.3) mg/dL Est Cr Clr Drug Dosing mL/min Estimated GFR (MDRD) (>60) mL/min BUN/Creatinine Ratio (14-18) Glucose (83-115) mg/dL Calcium (8.5-10.1) mg/dL Magnesium (1.8-2.4) mg/dl C-Reactive Protein (<1.0) mg/dL Med Orders - Current: Current Medications Acetaminophen (Tylenol) 650 mg PO Q4H PRN PRN Reason: Pain (Mild 1-3)/fever Hydrocodone Bitart/Acetaminophen ([place] 325-5 Mg) 1 tab PO Q4H PRN PRN Reason: Pain (moderate 4-6) Albuterol (Proventil Neb Soln) 2.5 mg NEB BID [facility] Last Admin: 08/06/17 08:21 Dose: 2.5 mg Albuterol/Ipratropium (Duoneb 3.0-0.5 Mg/3 Ml) 3 ml NEB Q4H PRN PRN Reason: Shortness Of Breath/wheezing Last Admin: 08/06/17 03:46 Dose: 3 ml Bisacodyl (Dulcolax) 5 mg PO DAILY PRN PRN Reason: Constipation Budesonide (Pulmicort) 0.5 mg NEB BID [facility] Last Admin: 08/06/17 08:21 Dose: 0.5 mg Docusate Sodium (Colace) 100 mg PO BID PRN PRN Reason: Constipation Ezetimibe (Zetia) 10 mg PO DAILY [facility] Last Admin: 08/05/17 08:03 Dose: 10 mg Flecainide Acetate (Tambocor) 150 mg PO BID [facility] Last Admin: 08/05/17 21:07 Dose: 150 mg Hydralazine HCl (Apresoline) 20 mg IVPUSH Q4H PRN PRN Reason: Hypertension Promethazine HCl 12.5 mg/ (Sodium Chloride) 50.5 mls @ 100 mls/hr IV Q6H PRN PRN Reason: Nausea/Vomiting Levofloxacin/Dextrose 750 mg/ (Premix) 150 mls @ 150 mls/hr IV Q48H [facility] Last Admin: 08/05/17 07:56 Dose: 150 mls/hr Sodium Chloride (Normal Saline) 1,000 mls @ 125 mls/hr IV ASDIRECTED [facility] Last Admin: 08/06/17 00:06 Dose: 125 mls/hr Lorazepam (Ativan) 0.25 mg IV Q6H PRN PRN Reason: Anxiety Magnesium Sulfate (Pharmacy To Dose - Magnesium Replacement) 1 dose .XX ASDIRECTED PRN PRN Reason: RX to Dose Metoprolol Tartrate (Lopressor) 5 mg IVPUSH Q4H PRN PRN Reason: Tachycardia Metoprolol Tartrate (Lopressor) 25 mg PO BID [facility] Last Admin: 08/05/17 21:06 Dose: 25 mg (Umeclidinium [place] 62.5 Mcg)*Pt Own Med* 62.5 mcg INH DAILY [facility] Last Admin: 08/06/17 08:21 Dose: 62.5 mcg Ondansetron HCl (Zofran) 4 mg IV Q6H PRN PRN Reason: Nausea/Vomiting Pantoprazole Sodium (Protonix) 40 mg PO DAILY@0700 [facility] Last Admin: 08/06/17 06:24 Dose: 40 mg Polyethylene Glycol (Miralax) 17 gm PO DAILY PRN PRN Reason: Constipation Potassium Chloride (Pharmacy To Dose - Potassium Replacement) 1 dose .XX ASDIRECTED PRN PRN Reason: RX to Dose Saccharomyces Boulardii (Florastor) 500 mg PO DAILY [facility] Last Admin: 08/05/17 08:02 Dose: 500 mg Senna/Docusate Sodium (Senna Plus) 1 tab PO BID PRN PRN Reason: Constipation Simvastatin (Zocor) 20 mg PO BEDTIME [facility] Last Admin: 08/05/17 21:07 Dose: 20 mg Sodium Chloride (Saline Flush) 10 ml FLUSH ASDIRECTED PRN PRN Reason: Keep Vein Open Last Admin: 08/04/17 20:54 Dose: 10 ml Tamsulosin HCl (Flomax) 0.4 mg PO PCBREAKFAST [facility] Last Admin: 08/05/17 09:30 Dose: 0.4 mg Temazepam (Restoril) 7.5 mg PO BEDTIME PRN PRN Reason: Sleep Warfarin Sodium (Coumadin) 1 mg PO MoFr@1800 [facility] Warfarin Sodium (Coumadin) 2.5 mg PO SuTuWeThSa@1800 [facility] Last Admin: 08/05/17 17:19 Dose: 2.5 mg Discontinued Medications Flecainide Acetate (Tambocor) 100 mg PO BID [facility] Last Admin: 08/05/17 09:52 Dose: Not Given Flecainide Acetate (Tambocor) 100 mg PO BID [facility] Last Admin: 08/05/17 09:29 Dose: 100 mg Flecainide Acetate (Tambocor) 50 mg PO NOW STA Stop: 08/05/17 10:35 Last Admin: 08/05/17 10:52 Dose: 50 mg Sodium Chloride (Normal Saline) 1,000 mls @ 250 mls/hr IV ASDIRECTED [facility] Last Admin: 08/04/17 20:54 Dose: 250 mls/hr Piperacillin Sod/Tazobactam (Sod 4.5 gm/ Sodium Chloride) 100 mls @ 200 mls/hr IV ONETIME ONE Stop: 08/04/17 22:35 Last Admin: 08/04/17 22:15 Dose: 200 mls/hr Vancomycin HCl 1 gm/ Sodium (Chloride) 250 mls @ 250 mls/hr IV ONETIME ONE Stop: 08/04/17 23:06 Last Admin: 08/04/17 23:00 Dose: Not Given Vancomycin HCl 1 gm/ Sodium (Chloride) 250 mls @ 250 mls/hr IV ONETIME ONE Stop: 08/04/17 23:31 Last Admin: 08/04/17 22:57 Dose: 250 mls/hr Levofloxacin/Dextrose 750 mg/ (Premix) 150 mls @ 100 mls/hr IV Q24H [facility] Dextrose/Sodium Chloride (Dextrose 5%-1/2 Ns) 500 mls @ 999 mls/hr IV ASDIRECTED [facility] Stop: 08/05/17 09:00 Lorazepam (Ativan) 0.5 mg IVPUSH ONETIME ONE Stop: 08/05/17 00:18 Last Admin: 08/05/17 00:37 Dose: 0.5 mg Morphine Sulfate (Morphine) 0.5 mg IVPUSH Q4H PRN PRN Reason: Other Stop: 08/06/17 00:10 (Umeclidinium [place] 62.5 Mcg)*Pt Own Med* 62.5 mcg PO DAILY [facility] Last Admin: 08/05/17 15:38 Dose: Not Given Pantoprazole Sodium (Protonix Iv) 40 mg .XX ONETIME ONE Stop: 08/05/17 00:31 Last Admin: 08/05/17 00:48 Dose: 40 mg Warfarin Sodium (Coumadin) 2.5 mg PO SuTuWeThSa@1800 [facility] Last Admin: 08/05/17 09:09 Dose: Not Given - Exam Quality Assessment: Supplemental Oxygen General: Alert, Cooperative, No Acute Distress HEENT: Pupils Equal, Pupils Reactive, Mucous Membr. Moist/[place] Neck: Supple, Trachea Midline, No JVD Lungs: Normal Respiratory Effort, Decreased Breath Sounds, Rhonchi, Wheezing Cardiovascular: Regular Rate, Regular Rhythm GI/Abdominal Exam: Normal Bowel Sounds, Soft, Non-Tender, No Organomegaly, No Distention, No Abnormal Bruit, No Mass, Pelvis Stable (Male) Exam: Deferred Back Exam: Normal Inspection, Decreased Range of Motion Extremities: Normal Inspection, Normal Range of Motion, Non-Tender, Normal Capillary Refill Peripheral Pulses: 2+: Dorsalis Pedis (L), Dorsalis Pedis (R) Skin: Warm, Dry, Intact Neurological: No New Focal Deficit Psy/Mental Status: Alert, Normal Affect, Normal Mood - Problem List Review Problem List Initiated/Reviewed/Updated: Yes - My Orders Last 24 Hours: My Active Orders 08/05/17 08:40 Chest wo Cont [CT] Routine 08/05/17 08:46 EKG 12 Lead [EK] Routine 08/05/17 09:00 Albuterol [Proventil Neb Soln] 2.5 mg NEB BID Budesonide [Pulmicort] 0.5 mg NEB BID Ezetimibe [Zetia] 10 mg PO DAILY Metoprolol Tartrate [Lopressor] 25 mg PO BID Saccharomyces Boulardii [Florastor] 500 mg PO DAILY 08/05/17 10:00 Tamsulosin [Flomax] 0.4 mg PO PCBREAKFAST 08/05/17 15:33 Umeclidinium [place] 62.5 mcg INH DAILY 08/05/17 15:55 MISC TEST Stat 08/05/17 18:00 Warfarin [Coumadin] 2.5 mg PO SuTuWeThSa@1800 08/05/17 21:00 Flecainide [Tambocor] 150 mg PO BID Simvastatin [Zocor] 20 mg PO BEDTIME 08/05/17 21:52 RT Flutter Valve Therapy [RT Acapella] [RESPCARE] Routine 08/05/17 Lunch National Dysphagia Diet [DIET] 08/06/17 06:30 CULTURE SPUTUM + SMEAR [RM] Stat 08/07/17 00:18 Warfarin [Coumadin] 1 mg PO MoFr@1800 08/07/17 05:11 BASIC METABOLIC PANEL,BMP [CHEM] AM C-REACTIVE PROTEIN [CHEM] AM CBC WITH AUTO DIFF [HEME] AM INR,PT,PROTHROMBIN TIME [COAG] DAILY MAGNESIUM [CHEM] AM 08/07/17 07:00 Swallowing Function w Video [CR] Routine 08/08/17 05:11 BASIC METABOLIC PANEL,BMP [CHEM] AM C-REACTIVE PROTEIN [CHEM] AM CBC WITH AUTO DIFF [HEME] AM INR,PT,PROTHROMBIN TIME [COAG] DAILY MAGNESIUM [CHEM] AM 08/09/17 05:11 BASIC METABOLIC PANEL,BMP [CHEM] AM C-REACTIVE PROTEIN [CHEM] AM INR,PT,PROTHROMBIN TIME [COAG] DAILY MAGNESIUM [CHEM] AM - Plan Plan:: Assessment/Plan: Acute: Left Lower Lobe 2.2 Centimeter Mass - Has Hx/o Lung CA S/p Lung Lobectomy - New since prior CT scan (11/2016) - Recommend histologic sampling - Follow up with Dr. Riley in [place] Aspiration Syndrome/Bronchitis - Current Chest-XR shows atelectasis - CT scan; shows emphysema and bibasialr fibrosis; no obvious infiltrate - Recently completed treatment of acute on chronic lower lobe pneumonia - He carries a hx/o left lung lobectomy and pyrosis - He was coughing up thick dark-yellowish colored sputum - Aspiration Precaution and PPI - Continue IV ATB and Continue Supplemental O2 Non-Oliguric Renal Failure, Improving - Acute on Chronic; Likely 2/2 poor oral/fluid intake - He has been switched to thick fluids due possible neha-pharyngeal dysfunction - Has underlying CKD Stage 3 - Spec gravity 1.030 suggestive of dehydration - Cr 2.5--> 2.3 --> 1.8 - Continue IV fluids and monitor output Leukocytosis, Improving - Likely 2/2 Aspiration - WBC is 23K --> 18.88 --> now 12.61 - CRP is 2.4--> 4.2 remains (low) - Treatment as above and will monitor Dysphagia - Had was recently intubation in [place] - 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 - Diet NDD1/Pureed Generalized Weakness - 2/2 Above - PT recommend SNF/Rehab Resolved: S/p AMS - 2/2 Sedation and Dehydration - on Ambien for Insomnia - He seems to be back at baseline Dehydration - 2/2 poor intake - His oral intake has not been good recently - His diet was also changed to thick fluids during his recent hospitalization in [place] - IV hydration and monitor volume status Chronic: AR Atrial Fibrillation on Warfarin GERD HLD Respiratory Failure Hx/o Lung CAN S/p Lobectomy Hx/o Recurrent PNA Insomnia Plan: He remains clinically stable and slowly improving overall Continue current treatment Video Swallow Study Monday Continue PT/OT/RT CM/SW for d/c planning Aspiration/Fall Precautions Recommend SNF/Rehab Code status: CPR only but no Meds or Intubation LOS > 96 hrs due to possible SNF/Rehab placement. Again, updated and children at beside regarding his clinical progress.
[2017-08-06] MEDS ORDERED: Levofloxacin/Dextrose 5%-Water 750 MG in Premix Bag 1 BAG IV SCH (09:00)
[2017-08-06] MEDS: Flecainide 50 MG Tab PO SCH ×2 (09:21→20:13)
[2017-08-06] MEDS: Tamsulosin 0.4 MG Cap.ER PO SCH (09:25)
[2017-08-06] MEDS: Ezetimibe 10 MG Tab PO SCH (09:25)
[2017-08-06] MEDS: Metoprolol Tartrate 25 MG Tab PO SCH ×2 (09:26→20:15)
[2017-08-06] MEDS: Saccharomyces Boulardii (Probiotic) 250 MG Cap PO SCH (09:26)
--- NOTE | 2017-08-06 09:55 | CR ---
Chest: Portable view of the chest was obtained. Comparison: Previous chest x-ray of 07/25/17. Interstitial changes seen throughout the left lung and lesser change within the right lung. Findings are fairly stable from prior exam. Nodular density is seen on current study within the left mid lung suspicious for pulmonary mass. No alveolar type densities are seen. Heart size is normal. Mediastinum is normal. When compared to prior study, endotracheal tube and nasogastric tube have been removed. Impression: 1. Interstitial changes within both lungs, worse on the left side. Uncertain if findings are due to development of pulmonary fibrosis or represent bronchitis, interstitial pneumonia or asymmetric pulmonary edema. 2. Tubes and catheters have been removed from prior exam. Diagnostic code #3 I agree with preliminary report issued by [facility] ([facility] report finalized on 08/05/17, 1:41 AM Central Time)
--- NOTE | 2017-08-06 15:06 | CT ---
CT chest Technique: Multiple axial sections through the chest were obtained. Intravenous contrast was not utilized. Comparison: Prior chest CT of 11/20/16 Findings: Pulmonary mass is identified within the superior segment of the left lower lung. This abnormality measures about 2.0 cm in greatest dimension. This finding is an interval change from previous chest CT. Interstitial changes are seen within both lungs which have worsened from prior chest CT. Diffuse emphysematous change is present. Mediastinum and hilar regions show small normal-appearing lymph nodes. Coronary artery calcification is seen. Small hiatal hernia is noted. Visualized upper abdominal structures appear within normal limits. Bone window settings were reviewed showing scattered degenerative endplate spurring within the spine with mild scattered disc space narrowing. Impression: 1. Emphysematous changes. 2. 2.0 cm left pulmonary mass within the superior segment of the left lower lung. This could certainly be malignant. 3. Interstitial changes which are increased from prior chest CT. Differential includes worsening pulmonary fibrosis and less likely interstitial edema or interstitial infection. Diagnostic code #9 I agree with preliminary report issued by [facility] ([facility] report finalized on 08/05/17, 11:22 AM Central Time)
[2017-08-06] MEDS ORDERED: Magnesium Oxide 400 MG Tab PO ONE (17:00)
[2017-08-06] MEDS: Warfarin 2.5 MG Tab PO SCH (17:09)
[2017-08-06] MEDS ORDERED: Sodium Chloride 0.9% 1,000 ML IV SCH (18:15)
--- NOTE | 2017-08-06 19:09 | CR ---
Chest: Portable view of the chest was obtained. Comparison: Previous chest CT performed one day earlier on 08/05/17. Chest x-ray of 08/04/17 is also available. Mild interstitial change is seen within both lung bases. Mild interstitial change is also seen within the right middle lobe. These findings are improved from previous chest x-ray on the left side and worsened on the right side. Nothing acute is otherwise seen. Heart size and mediastinum are normal. Bony structures are grossly intact. Impression: 1. Interstitial change improved on the left side and worsened on the right side. Differential for this increase includes asymmetric pulmonary vascular congestion as well as infectious interstitial pneumonia. Please correlate with the patient's symptoms. Diagnostic code #3
[2017-08-06] MEDS ORDERED: Bumetanide 1 MG/4 ML MDV IVPUSH ONE (19:38)
[2017-08-06] MEDS: Simvastatin 20 MG Tab PO SCH (20:16)
[2017-08-07] MEDS: Levofloxacin/Dextrose 5%-Water 750 MG in Premix Bag 1 BAG IV SCH (06:36)
[2017-08-07] MEDS: Pantoprazole 40 MG Tab.CR PO SCH (06:37)
[2017-08-07] MEDS ORDERED: Bumetanide 1 MG/4 ML MDV IVPUSH ONE (07:00)
[2017-08-07] MEDS ORDERED: Magnesium Oxide 400 MG Tab PO ONE (08:00)
[2017-08-07] MEDS: Saccharomyces Boulardii (Probiotic) 250 MG Cap PO SCH (08:02)
[2017-08-07] MEDS: Metoprolol Tartrate 25 MG Tab PO SCH ×2 (08:06→21:20)
[2017-08-07] MEDS: Flecainide 50 MG Tab PO SCH ×2 (08:06→21:20)
[2017-08-07] MEDS: Ezetimibe 10 MG Tab PO SCH (08:07)
[2017-08-07] MEDS: Budesonide 0.5 MG/2 ML Neb Susp NEB SCH ×2 (08:47→20:47)
[2017-08-07] MEDS: Albuterol 0.083% 2.5 MG/3 ML Neb Soln NEB SCH ×2 (08:47→20:47)
[2017-08-07] MEDS: Tamsulosin 0.4 MG Cap.ER PO SCH (09:33)
--- NOTE | 2017-08-07 09:52 | PCM.PN ---
- General Info Date of Service: 08/07/17 Admission Dx/Problem (Free Text): Nosocomial PNA Patient is seen this afternoon. 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 Patient is doing well. "Better this afternoon" but he is unable to tell me why or what was wrong this morning. Cough is minimal. If he does cough it is nonproductive. He does note swelling to legs bilat. No nausea now, did have some this morning. Ate good lunch today. Functional Status: Reports: Pain Controlled, Tolerating Diet, Urinating, Incentive Spirometry - Review of Systems General: Reports: Weakness. Denies: Fever HEENT: Reports: Dysphasia Pulmonary: Reports: Cough. Denies: Shortness of Breath, Sputum, Wheezing Cardiovascular: Reports: No Symptoms. Denies: Chest Pain, Palpitations Gastrointestinal: Reports: No Symptoms. Denies: Nausea, Vomiting Genitourinary: Reports: Frequency, Other (nocturia) - Patient Data Vitals - Most Recent: Last Vital Signs Temp 97.5 F 08/07/17 08:36 Pulse 60 08/07/17 08:20 Resp 30 H 08/07/17 03:59 BP 101/64 08/07/17 08:06 Pulse Ox 93 L 08/07/17 08:47 Weight - Most Recent: 195 lb 6.4 oz I&O - Last 24 Hours: Intake & Output 08/06/17 08/07/17 08/07/17 22:59 06:59 14:59 Intake Total 2497 566 50 Output Total 1565 1650 Balance 932 -1084 50 Lab Results Last 24 Hours: Laboratory Results - last 24 hr 08/06/17 08/07/17 08/07/17 Range/Units 18:10 02:20 06:03 WBC 14.71 H (4.23-9.07) K/mm3 RBC 4.40 L (4.63-6.08) M/mm3 Hgb 12.8 L (13.7-17.5) gm/L Hct 40.4 (40.1-51.0) % MCV 91.8 (79.0-92.2) fl MCH 29.1 (25.7-32.2) pg MCHC 31.7 L (32.2-35.5) g/dl RDW Std Deviation 54.8 H (35.1-43.9) fL Plt Count 283 (163-337) K/mm3 MPV 9.0 L (9.4-12.3) fl Neut % (Auto) 78.0 H (34.0-67.9) % Lymph % (Auto) 7.7 L (21.8-53.1) % Riley % (Auto) 8.6 (5.3-12.2) % Eos % (Auto) 0.6 L (0.8-7.0) Baso % (Auto) 0.1 (0.1-1.2) % Neut # (Auto) 11.47 H (1.78-5.38) K/mm3 Lymph # (Auto) 1.13 L (1.32-3.57) K/mm3 Riley # (Auto) 1.26 H (0.30-0.82) K/mm3 Eos # (Auto) 0.09 (0.04-0.54) K/mm3 Baso # (Auto) 0.02 (0.01-0.08) K/mm3 Manual Slide Review Abnormal smear PT (8.0-13.0) SECONDS INR Sodium 145 (136-145) mEq/L Potassium 4.3 (3.5-5.1) mEq/L Chloride 110 H (98-107) mEq/L Carbon Dioxide 27 (21-32) mEq/L Anion Gap 12.3 (5-15) BUN 39 H (7-18) mg/dL Creatinine 1.7 H (0.7-1.3) mg/dL Est Cr Clr Drug Dosing 38.67 mL/min Estimated GFR (MDRD) 39 (>60) mL/min BUN/Creatinine Ratio 22.9 H (14-18) Glucose 114 (83-115) mg/dL Calcium 8.1 L (8.5-10.1) mg/dL Magnesium (1.8-2.4) mg/dl C-Reactive Protein (<1.0) mg/dL NT-Pro-B Natriuret Pep 18646 H (0-450) pg/mL C.difficile [id number] Presumptive negative C. difficile Tox (PCR) Negative 08/07/17 08/07/17 Range/Units 06:03 06:03 WBC (4.23-9.07) K/mm3 RBC (4.63-6.08) M/mm3 Hgb (13.7-17.5) gm/L Hct (40.1-51.0) % MCV (79.0-92.2) fl MCH (25.7-32.2) pg MCHC (32.2-35.5) g/dl RDW Std Deviation (35.1-43.9) fL Plt Count (163-337) K/mm3 MPV (9.4-12.3) fl Neut % (Auto) (34.0-67.9) % Lymph % (Auto) (21.8-53.1) % Riley % (Auto) (5.3-12.2) % Eos % (Auto) (0.8-7.0) Baso % (Auto) (0.1-1.2) % Neut # (Auto) (1.78-5.38) K/mm3 Lymph # (Auto) (1.32-3.57) K/mm3 Riley # (Auto) (0.30-0.82) K/mm3 Eos # (Auto) (0.04-0.54) K/mm3 Baso # (Auto) (0.01-0.08) K/mm3 Manual Slide Review PT 30.4 H (8.0-13.0) SECONDS INR 2.62 Sodium 148 H (136-145) mEq/L Potassium 4.0 (3.5-5.1) mEq/L Chloride 109 H (98-107) mEq/L Carbon Dioxide 27 (21-32) mEq/L Anion Gap 16.0 H (5-15) BUN 34 H (7-18) mg/dL Creatinine 1.6 H (0.7-1.3) mg/dL Est Cr Clr Drug Dosing 41.09 mL/min Estimated GFR (MDRD) 42 (>60) mL/min BUN/Creatinine Ratio 21.3 H (14-18) Glucose 111 (83-115) mg/dL Calcium 8.9 (8.5-10.1) mg/dL Magnesium 1.7 L (1.8-2.4) mg/dl C-Reactive Protein 4.9 H* (<1.0) mg/dL NT-Pro-B Natriuret Pep (0-450) pg/mL C.difficile [id number] C. difficile Tox (PCR) Alfonso Results Last 24 Hours: Microbiology 08/06/17 06:30 Gram Stain - Final Sputum - Expectorated Med Orders - Current: Current Medications Acetaminophen (Tylenol) 650 mg PO Q4H PRN PRN Reason: Pain (Mild 1-3)/fever Last Admin: 08/06/17 09:20 Dose: 650 mg Hydrocodone Bitart/Acetaminophen (Burns 325-5 Mg) 1 tab PO Q4H PRN PRN Reason: Pain (moderate 4-6) Albuterol (Proventil Neb Soln) 2.5 mg NEB BID [facility] Last Admin: 08/07/17 08:47 Dose: 2.5 mg Albuterol/Ipratropium (Duoneb 3.0-0.5 Mg/3 Ml) 3 ml NEB Q4H PRN PRN Reason: Shortness Of Breath/wheezing Last Admin: 08/06/17 03:46 Dose: 3 ml Bisacodyl (Dulcolax) 5 mg PO DAILY PRN PRN Reason: Constipation Budesonide (Pulmicort) 0.5 mg NEB BID [facility] Last Admin: 08/07/17 08:47 Dose: 0.5 mg Docusate Sodium (Colace) 100 mg PO BID PRN PRN Reason: Constipation Ezetimibe (Zetia) 10 mg PO DAILY [facility] Last Admin: 08/07/17 08:07 Dose: 10 mg Flecainide Acetate (Tambocor) 150 mg PO BID [facility] Last Admin: 08/07/17 08:06 Dose: 150 mg Hydralazine HCl (Apresoline) 20 mg IVPUSH Q4H PRN PRN Reason: Hypertension Promethazine HCl 12.5 mg/ (Sodium Chloride) 50.5 mls @ 100 mls/hr IV Q6H PRN PRN Reason: Nausea/Vomiting Levofloxacin/Dextrose 750 mg/ (Premix) 150 mls @ 150 mls/hr IV Q48H [facility] Last Admin: 08/07/17 06:36 Dose: 150 mls/hr Lorazepam (Ativan) 0.25 mg IV Q6H PRN PRN Reason: Anxiety Magnesium Sulfate (Pharmacy To Dose - Magnesium Replacement) 1 dose .XX ASDIRECTED PRN PRN Reason: RX to Dose Metoprolol Tartrate (Lopressor) 5 mg IVPUSH Q4H PRN PRN Reason: Tachycardia Metoprolol Tartrate (Lopressor) 25 mg PO BID [facility] Last Admin: 08/07/17 08:06 Dose: 25 mg (Umeclidinium Leonore 62.5 Mcg)*Pt Own Med* 62.5 mcg INH DAILY [facility] Last Admin: 08/07/17 08:47 Dose: 62.5 mcg Ondansetron HCl (Zofran) 4 mg IV Q6H PRN PRN Reason: Nausea/Vomiting Pantoprazole Sodium (Protonix) 40 mg PO DAILY@0700 [facility] Last Admin: 08/07/17 06:37 Dose: 40 mg Polyethylene Glycol (Miralax) 17 gm PO DAILY PRN PRN Reason: Constipation Potassium Chloride (Pharmacy To Dose - Potassium Replacement) 1 dose .XX ASDIRECTED PRN PRN Reason: RX to Dose Saccharomyces Boulardii (Florastor) 500 mg PO DAILY [facility] Last Admin: 08/07/17 08:02 Dose: 500 mg Senna/Docusate Sodium (Senna Plus) 1 tab PO BID PRN PRN Reason: Constipation Simvastatin (Zocor) 20 mg PO BEDTIME [facility] Last Admin: 08/06/17 20:16 Dose: 20 mg Sodium Chloride (Saline Flush) 10 ml FLUSH ASDIRECTED PRN PRN Reason: Keep Vein Open Last Admin: 08/04/17 20:54 Dose: 10 ml Tamsulosin HCl (Flomax) 0.4 mg PO PCBREAKFAST [facility] Last Admin: 08/07/17 09:33 Dose: 0.4 mg Temazepam (Restoril) 7.5 mg PO BEDTIME PRN PRN Reason: Sleep Warfarin Sodium (Coumadin) 1 mg PO MoFr@1800 [facility] Last Admin: 08/07/17 00:46 Dose: Not Given Warfarin Sodium (Coumadin) 2.5 mg PO SuTuWeThSa@1800 [facility] Last Admin: 08/06/17 17:09 Dose: 2.5 mg Discontinued Medications Bumetanide (Bumex) 1 mg IVPUSH ONETIME ONE Stop: 08/06/17 19:39 Last Admin: 08/06/17 19:59 Dose: 1 mg Bumetanide (Bumex) 0.5 mg IVPUSH ONETIME ONE Stop: 08/07/17 07:01 Last Admin: 08/07/17 06:36 Dose: 0.5 mg Flecainide Acetate (Tambocor) 100 mg PO BID [facility] Last Admin: 08/05/17 09:52 Dose: Not Given Flecainide Acetate (Tambocor) 100 mg PO BID [facility] Last Admin: 08/05/17 09:29 Dose: 100 mg Flecainide Acetate (Tambocor) 50 mg PO NOW STA Stop: 08/05/17 10:35 Last Admin: 08/05/17 10:52 Dose: 50 mg Sodium Chloride (Normal Saline) 1,000 mls @ 250 mls/hr IV ASDIRECTED [facility] Last Admin: 08/04/17 20:54 Dose: 250 mls/hr Piperacillin Sod/Tazobactam (Sod 4.5 gm/ Sodium Chloride) 100 mls @ 200 mls/hr IV ONETIME ONE Stop: 08/04/17 22:35 Last Admin: 08/04/17 22:15 Dose: 200 mls/hr Vancomycin HCl 1 gm/ Sodium (Chloride) 250 mls @ 250 mls/hr IV ONETIME ONE Stop: 08/04/17 23:06 Last Admin: 08/04/17 23:00 Dose: Not Given Vancomycin HCl 1 gm/ Sodium (Chloride) 250 mls @ 250 mls/hr IV ONETIME ONE Stop: 08/04/17 23:31 Last Admin: 08/04/17 22:57 Dose: 250 mls/hr Levofloxacin/Dextrose 750 mg/ (Premix) 150 mls @ 100 mls/hr IV Q24H [facility] Sodium Chloride (Normal Saline) 1,000 mls @ 125 mls/hr IV ASDIRECTED [facility] Last Admin: 08/06/17 17:21 Dose: 125 mls/hr Dextrose/Sodium Chloride (Dextrose 5%-1/2 Ns) 500 mls @ 999 mls/hr IV ASDIRECTED [facility] Stop: 08/05/17 09:00 Sodium Chloride (Normal Saline) 1,000 mls @ 75 mls/hr IV ASDIRECTED [facility] Lorazepam (Ativan) 0.5 mg IVPUSH ONETIME ONE Stop: 08/05/17 00:18 Last Admin: 08/05/17 00:37 Dose: 0.5 mg Magnesium Oxide (Magnesium Oxide) 400 mg PO WITHDINNER ONE Stop: 08/06/17 17:01 Last Admin: 08/06/17 17:08 Dose: 400 mg Magnesium Oxide (Magnesium Oxide) 800 mg PO ONETIME ONE Stop: 08/07/17 08:01 Last Admin: 08/07/17 08:02 Dose: 800 mg Morphine Sulfate (Morphine) 0.5 mg IVPUSH Q4H PRN PRN Reason: Other Stop: 08/06/17 00:10 (Umeclidinium Leonore 62.5 Mcg)*Pt Own Med* 62.5 mcg PO DAILY [facility] Last Admin: 08/05/17 15:38 Dose: Not Given Pantoprazole Sodium (Protonix Iv) 40 mg .XX ONETIME ONE Stop: 08/05/17 00:31 Last Admin: 08/05/17 00:48 Dose: 40 mg Warfarin Sodium (Coumadin) 2.5 mg PO SuTuWeThSa@1800 [facility] Last Admin: 08/05/17 09:09 Dose: Not Given - Exam Quality Assessment: Supplemental Oxygen, DVT Prophylaxis General: Alert, Cooperative, No Acute Distress HEENT: Pupils Equal, EOMI, Mucous Membr. Moist/[place] Neck: Supple Lungs: Normal Respiratory Effort, Decreased Breath Sounds (mid to lower lobes ) Cardiovascular: Irregular Rhythm GI/Abdominal Exam: Normal Bowel Sounds, Soft, Non-Tender (Male) Exam: Deferred Extremities: Normal Inspection, Normal Capillary Refill Peripheral Pulses: 1+: Dorsalis Pedis (L), Dorsalis Pedis (R) Neurological: No New Focal Deficit Psy/Mental Status: Alert, Normal Affect - Problem List & Annotations (1) Aspiration syndrome SNOMED Code(s): 53765612 Code(s): T17.900A - UNSP FB IN RESP TRACT, PART UNSP CAUSING ASPHYX, INIT Status: Acute Priority: High Current Visit: Yes Qualifiers: Encounter type: initial encounter Qualified Code(s): T17.900A - Unspecified foreign body in respiratory tract, part unspecified causing asphyxiation, initial encounter (2) Mass of left lung SNOMED Code(s): 149866758 Code(s): R91.8 - OTHER NONSPECIFIC ABNORMAL FINDING OF LUNG FIELD Status: Acute Priority: High Current Visit: Yes (3) Acute renal failure SNOMED Code(s): 71045897 Code(s): N17.9 - ACUTE KIDNEY FAILURE, UNSPECIFIED Status: Acute Priority : High Current Visit: Yes Qualifiers: Acute renal failure type: unspecified Qualified Code(s): N17.9 - Acute kidney failure, unspecified (4) Dehydration, moderate SNOMED Code(s): 1110659386833 Code(s): E86.0 - DEHYDRATION Status: Resolved Priority: High Current Visit: Yes (5) Congestive heart failure with left ventricular diastolic dysfunction SNOMED Code(s): 18956322 Code(s): I50.30 - UNSPECIFIED DIASTOLIC (CONGESTIVE) HEART FAILURE Status: Acute Priority: High Current Visit: Yes Qualifiers: Congestive heart failure chronicity: acute on chronic Qualified Code(s): I50.33 - Acute on chronic diastolic (congestive) heart failure (6) Left lower lobe pneumonia SNOMED Code(s): 467216388 Code(s): J18.1 - LOBAR PNEUMONIA, UNSPECIFIED ORGANISM Status: Acute Priority: High Current Visit: Yes Qualifiers: Pneumonia type: due to unspecified organism Qualified Code(s): J18.1 - Lobar pneumonia, unspecified organism - Problem List Review Problem List Initiated/Reviewed/Updated: Yes - Plan Plan:: Assessment/Plan: Acute: Left Lower Lobe 2.2 Centimeter Mass - Has Hx/o Lung CA S/p Lung Lobectomy - New since prior CT scan (11/2016) - Recommend histologic sampling - Follow up with Dr. Riley in [place] after discharge Aspiration Syndrome/Bronchitis vs Pneumonia - Current Chest-XR shows atelectasis; repeat CXR tomorrow am - CT scan; shows emphysema and bibasialr fibrosis; no obvious infiltrate - Recently completed treatment of acute on chronic lower lobe pneumonia; s/p intubation - He carries a hx/o left lung lobectomy due to lung cancer and pyrosis - He was coughing up thick dark-yellowish colored sputum - Aspiration Precaution and PPI - Continue IV ATB and Continue Supplemental O2 Non-Oliguric Renal Failure, Improving - Acute on Chronic; Likely 2/2 poor oral/fluid intake - He has been switched to thick fluids due possible neha-pharyngeal dysfunction - Has underlying CKD Stage 3 - Spec gravity 1.030 suggestive of dehydration - Cr 2.5--> 2.3 --> 1.8-->1.6 - Continue IV fluids and monitor output Mild CHF exacerbation - Pro BNP rising; 17,000--> 20,000 range - IV diuretics - Echo ordered - 2,000ml fluid restriction - Chief Unit Forester consult for CHF/heart healthy diet - Will add PO spironolactone as is not on home diuretic Leukocytosis, Improving - Likely 2/2 Aspiration - WBC is 23K --> 18.88 --> 12.61--> 14.71 - CRP is 2.4--> 4.2-->4.9 - Treatment as above and will monitor Dysphagia - Had was recently intubation in [place] - FINANCIAL PROCESSING CLERK following - Diet NDD1/Pureed, thickened liquids Generalized Weakness - 2/2 Above - PT recommend SNF/Rehab Resolved: S/p AMS - 2/2 Sedation and Dehydration - on Ambien for Insomnia - He seems to be back at baseline Dehydration - 2/2 poor intake - His oral intake has not been good recently - His diet was also changed to thick fluids during his recent hospitalization in [place] - IV hydration and monitor volume status Chronic: AR Atrial Fibrillation on Warfarin-- INR therapeutic GERD HLD Respiratory Failure Hx/o Lung Cancer S/p Lobectomy Hx/o Recurrent PNA Insomnia Plan: He remains clinically stable and slowly improving overall Continue current treatment Video Swallow Study as outpatient as Dr. Tavera, Radiologist out until next week Continue PT/OT/RT CM/SW for d/c planning; is in agreement for SNF for rehab stay. SW working on placement. Aspiration/Fall Precautions Recommend SNF/Rehab Code status: CPR only but no Meds or Intubation LOS > 96 hrs due to possible SNF/Rehab placement.
[2017-08-07] MEDS ORDERED: Spironolactone 25 MG Tab PO SCH (11:45)
[2017-08-07] MEDS: Fluconazole 100 MG Tab PO SCH (11:45)
[2017-08-07] MEDS: Simvastatin 20 MG Tab PO SCH (21:19)
[2017-08-07] MEDS: Ondansetron 4 MG/2 ML SDV IV PRN (22:53)
[2017-08-08] MEDS: Midodrine 5 MG Tab PO SCH ×4 (00:56→21:23)
[2017-08-08] MEDS: Pantoprazole 40 MG Tab.CR PO SCH (06:56)
[2017-08-08] MEDS ORDERED: Levofloxacin/Dextrose 5%-Water 250 MG in Premix Bag 1 BAG IV SCH (07:00)
--- NOTE | 2017-08-08 07:52 | PCM.PN ---
- General Info Date of Service: 08/08/17 Admission Dx/Problem (Free Text): Dehydration and Acute Renal Failure Subjective Update: Follow Up Functional Status: Reports: Pain Controlled, Tolerating Diet, Ambulating, Urinating - Review of Systems General: Reports: Weakness. Denies: Fever, Fatigue, Malaise, Chills HEENT: Reports: No Symptoms Pulmonary: Denies: Shortness of Breath Cardiovascular: Denies: Chest Pain, Dyspnea on Exertion, Edema, Lightheadedness Gastrointestinal: Reports: Difficulty Swallowing. Denies: Abdominal Pain, Nausea, Vomiting Genitourinary: Reports: No Symptoms Musculoskeletal: Reports: No Symptoms Skin: Denies: Cyanosis, Pallor, Diaphoresis, Rash Neurological: Reports: Weakness, Gait Disturbance. Denies: Confusion, Pre- Existing Deficit, Difficulty Walking Psychiatric: Denies: Depression, Anxiety, Agitation, Hallucinations Systems Review Comment:: Patient developed sudden hypotension over night. He was put on trendelenberg and medication given to improve his pressure. All BP meds were held. He is doing much better this am. His pressures have improved. He has no new complaints. - Patient Data Vitals - Most Recent: Last Vital Signs Temp 36.5 C 08/08/17 03:20 Pulse 88 08/08/17 03:20 Resp 16 08/08/17 03:20 BP 109/68 08/08/17 03:20 Pulse Ox 95 08/08/17 03:20 Weight - Most Recent: 85.684 kg I&O - Last 24 Hours: Intake & Output 08/07/17 08/08/17 08/08/17 22:59 06:59 14:59 Intake Total 580 175 Output Total 300 250 Balance 280 -75 Lab Results Last 24 Hours: Laboratory Results - last 24 hr 08/07/17 08/08/17 08/08/17 Range/Units 06:03 05:57 05:57 WBC 10.73 H (4.23-9.07) K/mm3 RBC 4.17 L (4.63-6.08) M/mm3 Hgb 12.1 L (13.7-17.5) gm/L Hct 38.4 L (40.1-51.0) % MCV 92.1 (79.0-92.2) fl MCH 29.0 (25.7-32.2) pg MCHC 31.5 L (32.2-35.5) g/dl RDW Std Deviation 55.2 H (35.1-43.9) fL Plt Count 264 (163-337) K/mm3 MPV 9.1 L (9.4-12.3) fl Neut % (Auto) 71.9 H (34.0-67.9) % Lymph % (Auto) 10.1 L (21.8-53.1) % Peach % (Auto) 12.7 H (5.3-12.2) % Eos % (Auto) 0.4 L (0.8-7.0) Baso % (Auto) 0.2 (0.1-1.2) % Neut # (Auto) 7.73 H (1.78-5.38) K/mm3 Lymph # (Auto) 1.08 L (1.32-3.57) K/mm3 Peach # (Auto) 1.36 H (0.30-0.82) K/mm3 Eos # (Auto) 0.04 (0.04-0.54) K/mm3 Baso # (Auto) 0.02 (0.01-0.08) K/mm3 PT (8.0-13.0) SECONDS INR Sodium 146 H (136-145) mEq/L Potassium 4.4 (3.5-5.1) mEq/L Chloride 109 H (98-107) mEq/L Carbon Dioxide 27 (21-32) mEq/L Anion Gap 14.4 (5-15) BUN 33 H (7-18) mg/dL Creatinine 1.8 H (0.7-1.3) mg/dL Est Cr Clr Drug Dosing 36.52 mL/min Estimated GFR (MDRD) 37 (>60) mL/min BUN/Creatinine Ratio 18.3 H (14-18) Glucose 89 (83-115) mg/dL Calcium 8.8 (8.5-10.1) mg/dL Magnesium 1.7 L (1.8-2.4) mg/dl C-Reactive Protein 4.8 H* (<1.0) mg/dL NT-Pro-B Natriuret Pep 05190 H (0-450) pg/mL 08/08/17 Range/Units 05:57 WBC (4.23-9.07) K/mm3 RBC (4.63-6.08) M/mm3 Hgb (13.7-17.5) gm/L Hct (40.1-51.0) % MCV (79.0-92.2) fl MCH (25.7-32.2) pg MCHC (32.2-35.5) g/dl RDW Std Deviation (35.1-43.9) fL Plt Count (163-337) K/mm3 MPV (9.4-12.3) fl Neut % (Auto) (34.0-67.9) % Lymph % (Auto) (21.8-53.1) % Peach % (Auto) (5.3-12.2) % Eos % (Auto) (0.8-7.0) Baso % (Auto) (0.1-1.2) % Neut # (Auto) (1.78-5.38) K/mm3 Lymph # (Auto) (1.32-3.57) K/mm3 Peach # (Auto) (0.30-0.82) K/mm3 Eos # (Auto) (0.04-0.54) K/mm3 Baso # (Auto) (0.01-0.08) K/mm3 PT 26.8 H (8.0-13.0) SECONDS INR 2.33 Sodium (136-145) mEq/L Potassium (3.5-5.1) mEq/L Chloride (98-107) mEq/L Carbon Dioxide (21-32) mEq/L Anion Gap (5-15) BUN (7-18) mg/dL Creatinine (0.7-1.3) mg/dL Est Cr Clr Drug Dosing mL/min Estimated GFR (MDRD) (>60) mL/min BUN/Creatinine Ratio (14-18) Glucose (83-115) mg/dL Calcium (8.5-10.1) mg/dL Magnesium (1.8-2.4) mg/dl C-Reactive Protein (<1.0) mg/dL NT-Pro-B Natriuret Pep (0-450) pg/mL Alfonso Results Last 24 Hours: Microbiology 08/06/17 06:30 Gram Stain - Final Sputum - Expectorated Sputum Culture - Preliminary Gram Negative [facility] YEAST Med Orders - Current: Current Medications Acetaminophen (Tylenol) 650 mg PO Q4H PRN PRN Reason: Pain (Mild 1-3)/fever Last Admin: 08/06/17 09:20 Dose: 650 mg Hydrocodone Bitart/Acetaminophen ([place] 325-5 Mg) 1 tab PO Q4H PRN PRN Reason: Pain (moderate 4-6) Albuterol (Proventil Neb Soln) 2.5 mg NEB BID [facility] Last Admin: 08/07/17 20:47 Dose: 2.5 mg Albuterol/Ipratropium (Duoneb 3.0-0.5 Mg/3 Ml) 3 ml NEB Q4H PRN PRN Reason: Shortness Of Breath/wheezing Last Admin: 08/06/17 03:46 Dose: 3 ml Bisacodyl (Dulcolax) 5 mg PO DAILY PRN PRN Reason: Constipation Budesonide (Pulmicort) 0.5 mg NEB BID [facility] Last Admin: 08/07/17 20:47 Dose: 0.5 mg Docusate Sodium (Colace) 100 mg PO BID PRN PRN Reason: Constipation Ezetimibe (Zetia) 10 mg PO DAILY [facility] Last Admin: 08/07/17 08:07 Dose: 10 mg Flecainide Acetate (Tambocor) 150 mg PO BID [facility] Last Admin: 08/07/17 21:20 Dose: 150 mg Fluconazole (Diflucan) 100 mg PO DAILY [facility] Last Admin: 08/07/17 11:45 Dose: 100 mg Hydralazine HCl (Apresoline) 20 mg IVPUSH Q4H PRN PRN Reason: Hypertension Promethazine HCl 12.5 mg/ (Sodium Chloride) 50.5 mls @ 100 mls/hr IV Q6H PRN PRN Reason: Nausea/Vomiting Levofloxacin/Dextrose 250 mg/ (Premix) 50 mls @ 50 mls/hr IV Q24H [facility] Last Admin: 08/08/17 06:57 Dose: 50 mls/hr Lorazepam (Ativan) 0.25 mg IV Q6H PRN PRN Reason: Anxiety Magnesium Oxide (Magnesium Oxide) 800 mg PO ONETIME ONE Stop: 08/08/17 08:01 Magnesium Sulfate (Pharmacy To Dose - Magnesium Replacement) 1 dose .XX ASDIRECTED PRN PRN Reason: RX to Dose Metoprolol Tartrate (Lopressor) 5 mg IVPUSH Q4H PRN PRN Reason: Tachycardia Metoprolol Tartrate (Lopressor) 25 mg PO BID [facility] Last Admin: 08/07/17 21:20 Dose: 25 mg Midodrine (Midodrine) 5 mg PO TIDAC [facility] Last Admin: 08/08/17 06:56 Dose: 5 mg (Umeclidinium Collins 62.5 Mcg)*Pt Own Med* 62.5 mcg INH DAILY [facility] Last Admin: 08/07/17 08:47 Dose: 62.5 mcg Ondansetron HCl (Zofran) 4 mg IV Q6H PRN PRN Reason: Nausea/Vomiting Last Admin: 08/07/17 22:53 Dose: 4 mg Pantoprazole Sodium (Protonix) 40 mg PO DAILY@0700 [facility] Last Admin: 08/08/17 06:56 Dose: 40 mg Polyethylene Glycol (Miralax) 17 gm PO DAILY PRN PRN Reason: Constipation Potassium Chloride (Pharmacy To Dose - Potassium Replacement) 1 dose .XX ASDIRECTED PRN PRN Reason: RX to Dose Saccharomyces Boulardii (Florastor) 250 mg PO BID [facility] Senna/Docusate Sodium (Senna Plus) 1 tab PO BID PRN PRN Reason: Constipation Simvastatin (Zocor) 20 mg PO BEDTIME [facility] Last Admin: 08/07/17 21:19 Dose: 20 mg Sodium Chloride (Saline Flush) 10 ml FLUSH ASDIRECTED PRN PRN Reason: Keep Vein Open Last Admin: 08/04/17 20:54 Dose: 10 ml Tamsulosin HCl (Flomax) 0.4 mg PO PCBREAKFAST [facility] Last Admin: 08/07/17 09:33 Dose: 0.4 mg Temazepam (Restoril) 7.5 mg PO BEDTIME PRN PRN Reason: Sleep Warfarin Sodium (Coumadin) 1 mg PO MoFr@1800 [facility] Last Admin: 08/07/17 19:01 Dose: 1 mg Warfarin Sodium (Coumadin) 2.5 mg PO SuTuWeThSa@1800 [facility] Last Admin: 08/06/17 17:09 Dose: 2.5 mg Discontinued Medications Bumetanide (Bumex) 1 mg IVPUSH ONETIME ONE Stop: 08/06/17 19:39 Last Admin: 08/06/17 19:59 Dose: 1 mg Bumetanide (Bumex) 0.5 mg IVPUSH ONETIME ONE Stop: 08/07/17 07:01 Last Admin: 08/07/17 06:36 Dose: 0.5 mg Flecainide Acetate (Tambocor) 100 mg PO BID [facility] Last Admin: 08/05/17 09:52 Dose: Not Given Flecainide Acetate (Tambocor) 100 mg PO BID [facility] Last Admin: 08/05/17 09:29 Dose: 100 mg Flecainide Acetate (Tambocor) 50 mg PO NOW STA Stop: 08/05/17 10:35 Last Admin: 08/05/17 10:52 Dose: 50 mg Sodium Chloride (Normal Saline) 1,000 mls @ 250 mls/hr IV ASDIRECTED [facility] Last Admin: 08/04/17 20:54 Dose: 250 mls/hr Piperacillin Sod/Tazobactam (Sod 4.5 gm/ Sodium Chloride) 100 mls @ 200 mls/hr IV ONETIME ONE Stop: 08/04/17 22:35 Last Admin: 08/04/17 22:15 Dose: 200 mls/hr Vancomycin HCl 1 gm/ Sodium (Chloride) 250 mls @ 250 mls/hr IV ONETIME ONE Stop: 08/04/17 23:06 Last Admin: 08/04/17 23:00 Dose: Not Given Vancomycin HCl 1 gm/ Sodium (Chloride) 250 mls @ 250 mls/hr IV ONETIME ONE Stop: 08/04/17 23:31 Last Admin: 08/04/17 22:57 Dose: 250 mls/hr Levofloxacin/Dextrose 750 mg/ (Premix) 150 mls @ 100 mls/hr IV Q24H [facility] Levofloxacin/Dextrose 750 mg/ (Premix) 150 mls @ 150 mls/hr IV Q48H [facility] Last Admin: 08/07/17 06:36 Dose: 150 mls/hr Sodium Chloride (Normal Saline) 1,000 mls @ 125 mls/hr IV ASDIRECTED [facility] Last Admin: 08/06/17 17:21 Dose: 125 mls/hr Dextrose/Sodium Chloride (Dextrose 5%-1/2 Ns) 500 mls @ 999 mls/hr IV ASDIRECTED [facility] Stop: 08/05/17 09:00 Sodium Chloride (Normal Saline) 1,000 mls @ 75 mls/hr IV ASDIRECTED [facility] Lorazepam (Ativan) 0.5 mg IVPUSH ONETIME ONE Stop: 08/05/17 00:18 Last Admin: 08/05/17 00:37 Dose: 0.5 mg Magnesium Oxide (Magnesium Oxide) 400 mg PO WITHDINNER ONE Stop: 08/06/17 17:01 Last Admin: 08/06/17 17:08 Dose: 400 mg Magnesium Oxide (Magnesium Oxide) 800 mg PO ONETIME ONE Stop: 08/07/17 08:01 Last Admin: 08/07/17 08:02 Dose: 800 mg Morphine Sulfate (Morphine) 0.5 mg IVPUSH Q4H PRN PRN Reason: Other Stop: 08/06/17 00:10 (Umeclidinium Collins 62.5 Mcg)*Pt Own Med* 62.5 mcg PO DAILY [facility] Last Admin: 08/05/17 15:38 Dose: Not Given Pantoprazole Sodium (Protonix Iv) 40 mg .XX ONETIME ONE Stop: 08/05/17 00:31 Last Admin: 08/05/17 00:48 Dose: 40 mg Saccharomyces Boulardii (Florastor) 500 mg PO DAILY [facility] Last Admin: 08/07/17 08:02 Dose: 500 mg Spironolactone (Aldactone) 25 mg PO DAILY [facility] Last Admin: 08/07/17 11:46 Dose: 25 mg Warfarin Sodium (Coumadin) 2.5 mg PO SuTuWeThSa@1800 [facility] Last Admin: 08/05/17 09:09 Dose: Not Given - Exam Quality Assessment: Supplemental Oxygen General: Alert, Oriented, Cooperative, No Acute Distress HEENT: Pupils Equal, Pupils Reactive, EOMI, Mucous Membr. Moist/[place] Neck: Supple, Trachea Midline, No JVD, No Thyromegaly Lungs: Normal Respiratory Effort, Decreased Breath Sounds, Rhonchi Cardiovascular: Regular Rate, Regular Rhythm GI/Abdominal Exam: Normal Bowel Sounds, Soft, Non-Tender, No Organomegaly, No Distention, No Abnormal Bruit (Male) Exam: Deferred Back Exam: Normal Inspection, Decreased Range of Motion Extremities: Normal Inspection, Normal Range of Motion, Non-Tender, No Pedal Edema, Normal Capillary Refill Peripheral Pulses: 1+: Dorsalis Pedis (L), Dorsalis Pedis (R) Skin: Warm, Dry, Intact Neurological: No New Focal Deficit Psy/Mental Status: Alert, Normal Affect, Normal Mood - Problem List Review Problem List Initiated/Reviewed/Updated: Yes - My Orders Last 24 Hours: My Active Orders 08/08/17 01:00 Midodrine 5 mg PO TIDAC 08/08/17 05:57 CBC WITH AUTO DIFF [HEME] AM 08/08/17 07:00 Levofloxacin/Dextrose 5%-Water [Levaquin in D5W 250 MG/50 ML] 250 mg Premix Bag 1 bag IV Q24H 08/08/17 08:00 Magnesium Oxide 800 mg PO ONETIME ONE 08/08/17 09:00 Saccharomyces Boulardii [Florastor] 250 mg PO BID 08/09/17 05:11 BASIC METABOLIC PANEL,BMP [CHEM] AM C-REACTIVE PROTEIN [CHEM] AM INR,PT,PROTHROMBIN TIME [COAG] DAILY MAGNESIUM [CHEM] AM - Plan Plan:: Assessment/Plan: Acute: Left Lower Lobe 2.2 Centimeter Mass - Has Hx/o Lung CA S/p Lung Lobectomy - New since prior CT scan (11/2016) - Recommend histologic sampling - Follow up with Dr. Riley in [place] after discharge Aspiration Syndrome/Bronchitis vs Pneumonia - Current Chest-XR shows atelectasis; repeat CXR this am shows improved lungs - CT scan; shows emphysema and bibasialr fibrosis; no obvious infiltrate - Recently completed treatment of acute on chronic lower lobe pneumonia; s/p intubation - He carries a hx/o left lung lobectomy due to lung cancer and pyrosis - He was coughing up thick dark-yellowish colored sputum: pos for alirio and kleb pneumoniae - Aspiration Precaution and PPI - Continue oral anti-fungal agent - Discontinue IV ATB and Continue Supplemental O2 Non-Oliguric Renal Failure, Appears to be at baseline - Acute on Chronic; Likely 2/2 poor oral/fluid intake - He has been switched to thick fluids due possible neha-pharyngeal dysfunction - Has underlying CKD Stage 3 - Spec gravity 1.030 suggestive of dehydration - Cr 2.5--> 1.8 - Continue IV fluids and monitor output Mild CHF Exacerbation - Pro BNP rising; 17,000--> 20,000 range (has small pleural effusion) - 2D Echo 07/28/2017: EF 40-45% - Continue 2,000 ml fluid restriction - Sales Consulting Director consult for CHF/heart healthy diet - Hold lasix/Aldactone if pressures remains low Leukocytosis, Continues to improve - Likely 2/2 Aspiration - WBC is 23K --> 10.73 - CRP is 2.4--> 4.2--> 4.8 - Treatment as above and will monitor Dysphagia - Had was recently intubation in [place] - TWISTER IN following - Diet NDD1/Pureed, thickened liquids Generalized Weakness - 2/2 Above - PT recommend SNF/Rehab Hypotension - Suspect Autonomic Dysfunction - He does not look septic or really Ill - Midodrine 5 mg po TID for BP < 100/60 Resolved: S/p AMS - 2/2 Sedation and Dehydration - on Ambien for Insomnia - He seems to be back at baseline Dehydration - 2/2 poor intake - His oral intake has not been good recently - His diet was also changed to thick fluids during his recent hospitalization in [place] - IV hydration and monitor volume status Chronic: AR Atrial Fibrillation on Warfarin-INR therapeutic; HR controlled GERD HLD Respiratory Failure Hx/o Lung Cancer S/p Lobectomy Hx/o Recurrent PNA Insomnia Plan: He remains clinically stable and slowly improving overall Continue current treatment Video Swallow Study as outpatient as Dr. Tavera, Radiologist out until next week Continue PT/OT/RT CM/SW for d/c planning; is in agreement for SNF for rehab stay. SW working on placement Aspiration/Fall Precautions Recommend SNF/Rehab Code status: CPR only but no Meds or Intubation LOS > 96 hrs due to possible SNF/Rehab placement
[2017-08-08] MEDS ORDERED: Magnesium Oxide 400 MG Tab PO ONE (08:00)
[2017-08-08] MEDS: Albuterol 0.083% 2.5 MG/3 ML Neb Soln NEB SCH ×2 (08:55→20:27)
[2017-08-08] MEDS: Budesonide 0.5 MG/2 ML Neb Susp NEB SCH ×2 (08:55→20:27)
[2017-08-08] MEDS: Ezetimibe 10 MG Tab PO SCH (09:15)
[2017-08-08] MEDS: Fluconazole 100 MG Tab PO SCH (09:15)
[2017-08-08] MEDS: Saccharomyces Boulardii (Probiotic) 250 MG Cap PO SCH ×2 (09:15→21:23)
[2017-08-08] MEDS: Flecainide 50 MG Tab PO SCH ×2 (09:15→21:22)
[2017-08-08] MEDS: Tamsulosin 0.4 MG Cap.ER PO SCH (09:15)
[2017-08-08] MEDS: Metoprolol Tartrate 25 MG Tab PO SCH ×2 (09:29→20:54)
--- NOTE | 2017-08-08 09:46 | CR ---
Chest: Two views of the chest were obtained. Comparison: Prior chest x-ray of 08/06/17. Heart size and mediastinum are normal. Mild interstitial change is seen within the right lung and left lung base. Findings are slightly improved from prior exam. Mild areas of scarring within the right midlung and left lower lung are also seen. Bony structures are osteopenic. Degenerative spurring is noted within the spine. Lungs are hyperinflated compatible with emphysematous change. Possible small pleural effusion is seen posteriorly. Impression: 1. Findings as noted above. Findings are felt to be slightly improved from prior exam. Diagnostic code #3
[2017-08-08] MEDS: Ondansetron 4 MG/2 ML SDV IV PRN (12:33)
[2017-08-08] MEDS ORDERED: Midodrine 5 MG Tab PO STA (13:13)
[2017-08-08] MEDS ORDERED: Scopolamine 1.5 MG Transdermal Patch TRDERM ONE (13:20)
[2017-08-08] MEDS: Warfarin 2.5 MG Tab PO SCH (17:37)
[2017-08-08] MEDS ORDERED: Magnesium Sulfate/Water 2 GM in Premix Bag 1 BAG IV ONE (18:45)
[2017-08-08] MEDS: Simvastatin 20 MG Tab PO SCH (21:22)
[2017-08-09] MEDS: Midodrine 5 MG Tab PO SCH ×3 (06:35→17:03)
[2017-08-09] MEDS: Pantoprazole 40 MG Tab.CR PO SCH (06:35)
[2017-08-09] MEDS: Budesonide 0.5 MG/2 ML Neb Susp NEB SCH ×2 (08:51→20:40)
[2017-08-09] MEDS: Albuterol 0.083% 2.5 MG/3 ML Neb Soln NEB SCH ×2 (08:51→20:40)
[2017-08-09] MEDS: Saccharomyces Boulardii (Probiotic) 250 MG Cap PO SCH ×2 (09:46→20:07)
[2017-08-09] MEDS: Tamsulosin 0.4 MG Cap.ER PO SCH (09:47)
[2017-08-09] MEDS: Fluconazole 100 MG Tab PO SCH (09:47)
[2017-08-09] MEDS: Flecainide 50 MG Tab PO SCH ×4 (09:47→22:37)
[2017-08-09] MEDS: Ezetimibe 10 MG Tab PO SCH (09:47)
[2017-08-09] MEDS: Metoprolol Tartrate 25 MG Tab PO SCH ×2 (09:48→20:06)
--- NOTE | 2017-08-09 10:49 | PCM.PN ---
- General Info Date of Service: 08/09/17 Admission Dx/Problem (Free Text): Dehydration and Acute Renal Failure Subjective Update: Follow Up Functional Status: Reports: Pain Controlled, Tolerating Diet, Ambulating, New Symptoms (Dizziness and Unresposiveness/Hypotension). Denies: Urinating - Review of Systems General: Reports: Weakness. Denies: Fever, Chills HEENT: Reports: No Symptoms Pulmonary: Reports: Shortness of Breath Cardiovascular: Reports: Lightheadedness. Denies: Chest Pain, Palpitations, Dyspnea on Exertion Gastrointestinal: Denies: Abdominal Pain, Nausea, Vomiting Genitourinary: Reports: No Symptoms Musculoskeletal: Reports: No Symptoms Skin: Reports: Pallor. Denies: Cyanosis, Diaphoresis, Rash Neurological: Reports: Difficulty Walking, Weakness, Gait Disturbance, Other ( Pre-syncope). Denies: Confusion, Seizure, Syncope Psychiatric: Denies: Depression, Anxiety, Agitation, Hallucinations Systems Review Comment:: No significant overnight issues. His BP seems to be improving slowly. However this am, he had a pre-sycopal episode while he was in the bathroom. He felt bad and fainted. His manual BP taken at that time was 84/42 mmHg. His RR was 25 on 4L NC sating at 92%. His morning labs were fairly stable. - Patient Data Vitals - Most Recent: Last Vital Signs Temp 36.2 C 08/09/17 09:44 Pulse 99 08/09/17 10:44 Resp 19 08/09/17 09:44 BP 87/45 L 08/09/17 10:44 Pulse Ox 92 L 08/09/17 10:44 Weight - Most Recent: 86.409 kg I&O - Last 24 Hours: Intake & Output 08/08/17 08/09/17 08/09/17 22:59 06:59 14:59 Intake Total 610 50 Output Total 425 250 Balance 185 -200 Lab Results Last 24 Hours: Laboratory Results - last 24 hr 08/09/17 08/09/17 08/09/17 Range/Units 06:10 06:10 06:10 WBC 13.23 H (4.23-9.07) K/mm3 RBC 3.88 L (4.63-6.08) M/mm3 Hgb 11.5 L (13.7-17.5) gm/L Hct 36.4 L (40.1-51.0) % MCV 93.8 H (79.0-92.2) fl MCH 29.6 (25.7-32.2) pg MCHC 31.6 L (32.2-35.5) g/dl RDW Std Deviation 56.3 H (35.1-43.9) fL Plt Count 264 (163-337) K/mm3 MPV 9.0 L (9.4-12.3) fl Neut % (Auto) 80.3 H (34.0-67.9) % Lymph % (Auto) 7.1 L (21.8-53.1) % [place] % (Auto) 10.1 (5.3-12.2) % Eos % (Auto) 0.4 L (0.8-7.0) Baso % (Auto) 0.2 (0.1-1.2) % Neut # (Auto) 10.64 H (1.78-5.38) K/mm3 Lymph # (Auto) 0.94 L (1.32-3.57) K/mm3 [place] # (Auto) 1.33 H (0.30-0.82) K/mm3 Eos # (Auto) 0.05 (0.04-0.54) K/mm3 Baso # (Auto) 0.02 (0.01-0.08) K/mm3 Manual Slide Review Abnormal smear PT 30.4 H (8.0-13.0) SECONDS INR 2.62 Sodium 146 H (136-145) mEq/L Potassium 4.8 (3.5-5.1) mEq/L Chloride 109 H (98-107) mEq/L Carbon Dioxide 28 (21-32) mEq/L Anion Gap 13.8 (5-15) BUN 39 H (7-18) mg/dL Creatinine 1.9 H (0.7-1.3) mg/dL Est Cr Clr Drug Dosing 34.65 mL/min Estimated GFR (MDRD) 34 (>60) mL/min BUN/Creatinine Ratio 20.5 H (14-18) Glucose 109 (83-115) mg/dL Calcium 8.8 (8.5-10.1) mg/dL Magnesium 2.2 (1.8-2.4) mg/dl C-Reactive Protein 4.9 H* (<1.0) mg/dL Alfonso Results Last 24 Hours: Microbiology 08/06/17 06:30 Gram Stain - Final Sputum - Expectorated Sputum Culture - Preliminary Klebsiella Pneumoniae Alirio Albicans YEAST Med Orders - Current: Current Medications Acetaminophen (Tylenol) 650 mg PO Q4H PRN PRN Reason: Pain (Mild 1-3)/fever Last Admin: 08/06/17 09:20 Dose: 650 mg Hydrocodone Bitart/Acetaminophen ([place] 325-5 Mg) 1 tab PO Q4H PRN PRN Reason: Pain (moderate 4-6) Albuterol (Proventil Neb Soln) 2.5 mg NEB BID [facility] Last Admin: 08/09/17 08:51 Dose: 2.5 mg Albuterol/Ipratropium (Duoneb 3.0-0.5 Mg/3 Ml) 3 ml NEB Q4H PRN PRN Reason: Shortness Of Breath/wheezing Last Admin: 08/06/17 03:46 Dose: 3 ml Bisacodyl (Dulcolax) 5 mg PO DAILY PRN PRN Reason: Constipation Budesonide (Pulmicort) 0.5 mg NEB BID [facility] Last Admin: 08/09/17 08:51 Dose: 0.5 mg Docusate Sodium (Colace) 100 mg PO BID PRN PRN Reason: Constipation Ezetimibe (Zetia) 10 mg PO DAILY [facility] Last Admin: 08/09/17 09:47 Dose: 10 mg Flecainide Acetate (Tambocor) 100 mg PO BID [facility] Last Admin: 08/09/17 09:47 Dose: 100 mg Fluconazole (Diflucan) 100 mg PO DAILY [facility] Last Admin: 08/09/17 09:47 Dose: 100 mg Hydralazine HCl (Apresoline) 20 mg IVPUSH Q4H PRN PRN Reason: Hypertension Promethazine HCl 12.5 mg/ (Sodium Chloride) 50.5 mls @ 100 mls/hr IV Q6H PRN PRN Reason: Nausea/Vomiting Lorazepam (Ativan) 0.25 mg IV Q6H PRN PRN Reason: Anxiety Magnesium Sulfate (Pharmacy To Dose - Magnesium Replacement) 1 dose .XX ASDIRECTED PRN PRN Reason: RX to Dose Metoprolol Tartrate (Lopressor) 5 mg IVPUSH Q4H PRN PRN Reason: Tachycardia Metoprolol Tartrate (Lopressor) 25 mg PO BID [facility] Last Admin: 08/09/17 09:48 Dose: Not Given Midodrine (Midodrine) 10 mg PO TIDAC [facility] Last Admin: 08/09/17 06:35 Dose: 10 mg (Umeclidinium [place] 62.5 Mcg)*Pt Own Med* 62.5 mcg INH DAILY [facility] Last Admin: 08/09/17 08:56 Dose: 62.5 mcg Ondansetron HCl (Zofran) 4 mg IV Q6H PRN PRN Reason: Nausea/Vomiting Last Admin: 08/08/17 12:33 Dose: 4 mg Pantoprazole Sodium (Protonix) 40 mg PO DAILY@0700 [facility] Last Admin: 08/09/17 06:35 Dose: 40 mg Polyethylene Glycol (Miralax) 17 gm PO DAILY PRN PRN Reason: Constipation Potassium Chloride (Pharmacy To Dose - Potassium Replacement) 1 dose .XX ASDIRECTED PRN PRN Reason: RX to Dose Saccharomyces Boulardii (Florastor) 250 mg PO BID [facility] Last Admin: 08/09/17 09:46 Dose: 250 mg Senna/Docusate Sodium (Senna Plus) 1 tab PO BID PRN PRN Reason: Constipation Simvastatin (Zocor) 20 mg PO BEDTIME [facility] Last Admin: 08/08/17 21:22 Dose: 20 mg Sodium Chloride (Saline Flush) 10 ml FLUSH ASDIRECTED PRN PRN Reason: Keep Vein Open Last Admin: 08/04/17 20:54 Dose: 10 ml Tamsulosin HCl (Flomax) 0.4 mg PO PCBREAKFAST [facility] Last Admin: 08/09/17 09:47 Dose: 0.4 mg Temazepam (Restoril) 7.5 mg PO BEDTIME PRN PRN Reason: Sleep Warfarin Sodium (Coumadin) 1 mg PO MoFr@1800 [facility] Last Admin: 08/07/17 19:01 Dose: 1 mg Warfarin Sodium (Coumadin) 2.5 mg PO SuTuWeThSa@1800 [facility] Last Admin: 08/08/17 17:37 Dose: 2.5 mg Discontinued Medications Bumetanide (Bumex) 1 mg IVPUSH ONETIME ONE Stop: 08/06/17 19:39 Last Admin: 08/06/17 19:59 Dose: 1 mg Bumetanide (Bumex) 0.5 mg IVPUSH ONETIME ONE Stop: 08/07/17 07:01 Last Admin: 08/07/17 06:36 Dose: 0.5 mg Flecainide Acetate (Tambocor) 100 mg PO BID [facility] Last Admin: 08/05/17 09:52 Dose: Not Given Flecainide Acetate (Tambocor) 100 mg PO BID [facility] Last Admin: 08/05/17 09:29 Dose: 100 mg Flecainide Acetate (Tambocor) 50 mg PO NOW STA Stop: 08/05/17 10:35 Last Admin: 08/05/17 10:52 Dose: 50 mg Flecainide Acetate (Tambocor) 150 mg PO BID [facility] Last Admin: 08/08/17 21:22 Dose: 150 mg Sodium Chloride (Normal Saline) 1,000 mls @ 250 mls/hr IV ASDIRECTED [facility] Last Admin: 08/04/17 20:54 Dose: 250 mls/hr Piperacillin Sod/Tazobactam (Sod 4.5 gm/ Sodium Chloride) 100 mls @ 200 mls/hr IV ONETIME ONE Stop: 08/04/17 22:35 Last Admin: 08/04/17 22:15 Dose: 200 mls/hr Vancomycin HCl 1 gm/ Sodium (Chloride) 250 mls @ 250 mls/hr IV ONETIME ONE Stop: 08/04/17 23:06 Last Admin: 08/04/17 23:00 Dose: Not Given Vancomycin HCl 1 gm/ Sodium (Chloride) 250 mls @ 250 mls/hr IV ONETIME ONE Stop: 08/04/17 23:31 Last Admin: 08/04/17 22:57 Dose: 250 mls/hr Levofloxacin/Dextrose 750 mg/ (Premix) 150 mls @ 100 mls/hr IV Q24H [facility] Levofloxacin/Dextrose 750 mg/ (Premix) 150 mls @ 150 mls/hr IV Q48H [facility] Last Admin: 08/07/17 06:36 Dose: 150 mls/hr Sodium Chloride (Normal Saline) 1,000 mls @ 125 mls/hr IV ASDIRECTED [facility] Last Admin: 08/06/17 17:21 Dose: 125 mls/hr Dextrose/Sodium Chloride (Dextrose 5%-1/2 Ns) 500 mls @ 999 mls/hr IV ASDIRECTED ANIKA Stop: 08/05/17 09:00 Sodium Chloride (Normal Saline) 1,000 mls @ 75 mls/hr IV ASDIRECTED ANIKA Levofloxacin/Dextrose 250 mg/ (Premix) 50 mls @ 50 mls/hr IV Q24H [facility] Last Admin: 08/08/17 06:57 Dose: 50 mls/hr Magnesium Sulfate 2 gm/ Premix 50 mls @ 50 mls/hr IV ONETIME ONE Stop: 08/08/17 19:44 Last Admin: 08/08/17 19:15 Dose: 50 mls/hr Lorazepam (Ativan) 0.5 mg IVPUSH ONETIME ONE Stop: 08/05/17 00:18 Last Admin: 08/05/17 00:37 Dose: 0.5 mg Magnesium Oxide (Magnesium Oxide) 400 mg PO WITHDINNER ONE Stop: 08/06/17 17:01 Last Admin: 08/06/17 17:08 Dose: 400 mg Magnesium Oxide (Magnesium Oxide) 800 mg PO ONETIME ONE Stop: 08/07/17 08:01 Last Admin: 08/07/17 08:02 Dose: 800 mg Magnesium Oxide (Magnesium Oxide) 800 mg PO ONETIME ONE Stop: 08/08/17 08:01 Last Admin: 08/08/17 09:14 Dose: 800 mg Midodrine (Midodrine) 5 mg PO TIDAC [facility] Last Admin: 08/08/17 10:03 Dose: 5 mg Midodrine (Midodrine) 5 mg PO NOW STA Stop: 08/08/17 13:14 Last Admin: 08/08/17 14:01 Dose: 5 mg Morphine Sulfate (Morphine) 0.5 mg IVPUSH Q4H PRN PRN Reason: Other Stop: 08/06/17 00:10 (Umeclidinium [place] 62.5 Mcg)*Pt Own Med* 62.5 mcg PO DAILY [facility] Last Admin: 08/05/17 15:38 Dose: Not Given Pantoprazole Sodium (Protonix Iv) 40 mg .XX ONETIME ONE Stop: 08/05/17 00:31 Last Admin: 08/05/17 00:48 Dose: 40 mg Saccharomyces Boulardii (Florastor) 500 mg PO DAILY [facility] Last Admin: 08/07/17 08:02 Dose: 500 mg Scopolamine (Transderm-Scop) 1.5 mg TRDERM Q72H ONE Stop: 08/08/17 13:21 Last Admin: 08/08/17 14:00 Dose: 1.5 mg Spironolactone (Aldactone) 25 mg PO DAILY [facility] Last Admin: 08/07/17 11:46 Dose: 25 mg Warfarin Sodium (Coumadin) 2.5 mg PO SuTuWeThSa@1800 [facility] Last Admin: 08/05/17 09:09 Dose: Not Given - Exam Quality Assessment: Supplemental Oxygen General: Alert, Cooperative, Moderate Distress HEENT: Pupils Equal, Pupils Reactive, EOMI, Mucous Membr. Moist/[place] Neck: Supple, Trachea Midline, No Thyromegaly Lungs: Normal Respiratory Effort, Decreased Breath Sounds Cardiovascular: Irregular Rhythm GI/Abdominal Exam: Normal Bowel Sounds, Soft, Non-Tender, No Organomegaly, No Distention, No Mass (Male) Exam: Deferred Back Exam: Normal Inspection, Decreased Range of Motion Extremities: Normal Inspection, Normal Range of Motion, Non-Tender, No Pedal Edema, Normal Capillary Refill Peripheral Pulses: 2+: Dorsalis Pedis (L), Dorsalis Pedis (R) Skin: Warm, Dry, Intact Neurological: No New Focal Deficit Psy/Mental Status: Alert, Normal Affect, Anxious - Problem List Review Problem List Initiated/Reviewed/Updated: Yes - My Orders Last 24 Hours: My Active Orders 08/08/17 21:00 Midodrine 10 mg PO TIDAC 08/09/17 01:46 Communication Order [RC] DAILY 08/09/17 09:00 Flecainide [Tambocor] 100 mg PO BID 08/09/17 10:32 EKG 12 Lead [EK] Stat 08/09/17 10:33 EKG Documentation Completion [RC] ASDIRECTED Chest 1V Frontal [CR] Stat TROPONIN I [CHEM] Stat - Plan Plan:: Assessment/Plan: Acute: Hypotension With Pre-sycopal Episode - Intermittent Episode - Stat CXR, Troponin x 1 and EKG - Suspect Autonomic Dysfunction but cannot r/o Cardiogenic Shock - He responds marginally with Midodrine - Sudden hypotension and fainted (pre-syncope) when he got up to go to the bathroom - Transfer to ICU for hemodynamic instability Left Lower Lobe 2.2 Centimeter Mass - Has Hx/o Lung CA S/p Lung Lobectomy - New since prior CT scan (11/2016) - Recommend histologic sampling - Follow up with Dr. Riley in [place] after discharge Aspiration Syndrome/Bronchitis vs Pneumonia - Current Chest-XR shows atelectasis; repeat CXR this am shows improved lungs - CT scan; shows emphysema and bibasialr fibrosis; no obvious infiltrate - Recently completed treatment of acute on chronic lower lobe pneumonia; s/p intubation - He carries a hx/o left lung lobectomy due to lung cancer and pyrosis - He was coughing up thick dark-yellowish colored sputum: pos for alirio and kleb pneumoniae - Aspiration Precaution and PPI - Continue oral anti-fungal agent - Discontinue IV ATB and Continue Supplemental O2 Non-Oliguric Renal Failure, Appears to be at baseline - Acute on Chronic; Likely 2/2 poor oral/fluid intake - He has been switched to thick fluids due possible neha-pharyngeal dysfunction - Has underlying CKD Stage 3 - Spec gravity 1.030 suggestive of dehydration - Cr 2.5--> 1.8 --> 1.9 - Continue IV fluids and monitor output Mild CHF Exacerbation - Pro BNP rising; 17,000--> 20,000 range (has small pleural effusion) - 2D Echo 07/28/2017: EF 40-45% - Continue 2,000 ml fluid restriction - Wad Lubricator consult for CHF/heart healthy diet - Hold lasix/Aldactone if pressures remains low Leukocytosis, Continues to improve - Likely 2/2 Aspiration - WBC is 23K --> 10.73 --> 13.23 - CRP is 2.4--> 4.2--> 4.8--> 4.9 - Treatment as above and will monitor Dysphagia - Had was recently intubation in [place] - MECHANIC/WELDER following - Diet NDD1/Pureed, thickened liquids Generalized Weakness - 2/2 Above - PT recommend SNF/Rehab Resolved: S/p AMS - 2/2 Sedation and Dehydration - on Ambien for Insomnia - He seems to be back at baseline Dehydration - 2/2 poor intake - His oral intake has not been good recently - His diet was also changed to thick fluids during his recent hospitalization in [place] - IV hydration and monitor volume status Chronic: AR Atrial Fibrillation on Warfarin-INR therapeutic; HR controlled GERD HLD Respiratory Failure Hx/o Lung Cancer S/p Lobectomy Hx/o Recurrent PNA Insomnia Plan: Patient is hemodynamically unstable and he does not look good clinically Transfer to ICU for pressure support Dopamine drip; titrate to keep SBP > 110 mmHg Cortisol level then Solucortef 100 mg IVP Q6 first dose now Video Swallow Study as outpatient as Dr. Tavera, Radiologist out until next week Continue PT/OT/RT CM/SW for d/c planning; is in agreement for SNF for rehab stay. SW working on placement Aspiration/Fall Precautions Recommend SNF/Rehab Code status: DNR/DNI Prognosis is guarged. Spoke to family and DPOA and warned them but sudden clinical deterioration. LOS remains > 96 hrs due to sudden change in clinical status and SNF/Rehab placement
[2017-08-09] MEDS ORDERED: DOPamine/Dextrose 5%-Water 400 MG/250 ML BAG IV SCH (11:00)
--- NOTE | 2017-08-09 12:20 | CR ---
Chest: Portable view of the chest was obtained. Comparison: Previous chest x-ray of 08/08/17. Stable scarring is noted within the left lung base. Stable scarring is noted within the right mid and lower lung. No acute infiltrates are seen. Heart size is normal. Mediastinum is within normal limits. Bony structures are grossly intact. Impression: 1. Areas of scarring within both lungs. Nothing acute is appreciated. Diagnostic code #2
[2017-08-09] MEDS ORDERED: Bumetanide 1 MG/4 ML MDV IVPUSH ONE (16:49)
[2017-08-09] MEDS: Hydrocortisone Sodium Succinate 100 MG/2 ML SDV IVPUSH SCH ×2 (17:44→23:13)
[2017-08-09] MEDS: Warfarin 2.5 MG Tab PO SCH (17:48)
[2017-08-09] MEDS: Simvastatin 20 MG Tab PO SCH (20:06)
[2017-08-10] MEDS: Pantoprazole 40 MG Tab.CR PO SCH (06:01)
[2017-08-10] MEDS: Midodrine 5 MG Tab PO SCH ×3 (06:01→16:41)
[2017-08-10] MEDS: Hydrocortisone Sodium Succinate 100 MG/2 ML SDV IVPUSH SCH ×3 (06:01→16:42)
[2017-08-10] MEDS: Flecainide 50 MG Tab PO SCH ×2 (08:37→20:17)
[2017-08-10] MEDS: Saccharomyces Boulardii (Probiotic) 250 MG Cap PO SCH ×2 (08:37→20:17)
[2017-08-10] MEDS: Tamsulosin 0.4 MG Cap.ER PO SCH ×2 (08:38→10:59)
[2017-08-10] MEDS: Fluconazole 100 MG Tab PO SCH (08:38)
[2017-08-10] MEDS: Docusate Sodium 100 MG Cap PO PRN ×2 (08:38→20:17)
[2017-08-10] MEDS: Ezetimibe 10 MG Tab PO SCH (08:39)
[2017-08-10] MEDS: Metoprolol Tartrate 25 MG Tab PO SCH ×2 (08:46→22:27)
[2017-08-10] MEDS: Budesonide 0.5 MG/2 ML Neb Susp NEB SCH ×2 (09:23→20:33)
[2017-08-10] MEDS: Albuterol 0.083% 2.5 MG/3 ML Neb Soln NEB SCH ×2 (09:23→20:33)
--- NOTE | 2017-08-10 12:58 | PCM.PN ---
- General Info Date of Service: 08/10/17 Admission Dx/Problem (Free Text): Dehydration and Acute Renal Failure Subjective Update: Follow Up Functional Status: Reports: Pain Controlled, Tolerating Diet, Urinating. Denies : New Symptoms - Review of Systems General: Reports: Weakness. Denies: Fever, Fatigue, Malaise, Chills HEENT: Reports: No Symptoms Pulmonary: Reports: Shortness of Breath Cardiovascular: Denies: Chest Pain, Palpitations, Dyspnea on Exertion, Edema, Lightheadedness Gastrointestinal: Denies: Abdominal Pain, Nausea, Vomiting Genitourinary: Reports: No Symptoms Musculoskeletal: Reports: No Symptoms Skin: Denies: Cyanosis, Mottled, Pallor, Diaphoresis Neurological: Reports: Weakness. Denies: Confusion, Pre-Existing Deficit, Syncope, Difficulty Walking, Gait Disturbance Psychiatric: Denies: Depression, Anxiety, Agitation, Hallucinations Systems Review Comment:: No significant overnight or acute issues. He is responding to pressor drip. He also looks much better. He has no new complaints. - Patient Data Vitals - Most Recent: Last Vital Signs Temp 36.7 C 08/10/17 12:00 Pulse 101 H 08/09/17 20:06 Resp 19 08/10/17 12:00 BP 108/75 08/10/17 12:00 Pulse Ox 91 L 08/10/17 12:00 Weight - Most Recent: 91.626 kg I&O - Last 24 Hours: Intake & Output 08/09/17 08/10/17 08/10/17 22:59 06:59 14:59 Intake Total 379 468 120 Output Total 700 Balance 379 -232 120 Lab Results Last 24 Hours: Laboratory Results - last 24 hr 08/09/17 08/10/17 08/10/17 Range/Units 10:45 09:50 09:50 PT 42.8 H (8.0-13.0) SECONDS INR 3.62 NT-Pro-B Natriuret Pep 9506 H 91142 H (0-450) pg/mL Alfonso Results Last 24 Hours: Microbiology 08/06/17 06:30 Gram Stain - Final Sputum - Expectorated Sputum Culture - Final Klebsiella Pneumoniae Alirio Albicans Alirio (Torulopsis) [place] Med Orders - Current: Current Medications Acetaminophen (Tylenol) 650 mg PO Q4H PRN PRN Reason: Pain (Mild 1-3)/fever Last Admin: 08/06/17 09:20 Dose: 650 mg Hydrocodone Bitart/Acetaminophen ([place] 325-5 Mg) 1 tab PO Q4H PRN PRN Reason: Pain (moderate 4-6) Last Admin: 08/10/17 08:39 Dose: 1 tab Albuterol (Proventil Neb Soln) 2.5 mg NEB BID ANIKA Last Admin: 08/10/17 09:23 Dose: 2.5 mg Albuterol/Ipratropium (Duoneb 3.0-0.5 Mg/3 Ml) 3 ml NEB Q4H PRN PRN Reason: Shortness Of Breath/wheezing Last Admin: 08/06/17 03:46 Dose: 3 ml Bisacodyl (Dulcolax) 5 mg PO DAILY PRN PRN Reason: Constipation Last Admin: 08/10/17 08:38 Dose: 5 mg Budesonide (Pulmicort) 0.5 mg NEB BID [facility] Last Admin: 08/10/17 09:23 Dose: 0.5 mg Docusate Sodium (Colace) 100 mg PO BID PRN PRN Reason: Constipation Last Admin: 08/10/17 08:38 Dose: 100 mg Ezetimibe (Zetia) 10 mg PO DAILY [facility] Last Admin: 08/10/17 08:39 Dose: 10 mg Flecainide Acetate (Tambocor) 100 mg PO BID [facility] Last Admin: 08/10/17 08:37 Dose: 100 mg Hydralazine HCl (Apresoline) 20 mg IVPUSH Q4H PRN PRN Reason: Hypertension Hydrocortisone Sodium Succinate (Solu-Cortef) 100 mg IVPUSH Q6H ANIKA Last Admin: 08/10/17 10:58 Dose: 100 mg Promethazine HCl 12.5 mg/ (Sodium Chloride) 50.5 mls @ 100 mls/hr IV Q6H PRN PRN Reason: Nausea/Vomiting Dopamine HCl/Dextrose (Dopamine In D5w 400 Mg/250 Ml) 400 mg in 250 mls @ 6.48 mls/hr IV TITRATE ANIKA; 2 MCG/KG/MIN PRN Reason: Protocol Last Titration: 08/10/17 09:06 Dose: 0 mcg/kg/min, 0 mls/hr Lorazepam (Ativan) 0.25 mg IV Q6H PRN PRN Reason: Anxiety Magnesium Sulfate (Pharmacy To Dose - Magnesium Replacement) 1 dose .XX ASDIRECTED PRN PRN Reason: RX to Dose Metoprolol Tartrate (Lopressor) 5 mg IVPUSH Q4H PRN PRN Reason: Tachycardia Metoprolol Tartrate (Lopressor) 12.5 mg PO BID [facility] Midodrine (Midodrine) 10 mg PO TIDAC [facility] Last Admin: 08/10/17 10:57 Dose: 10 mg (Umeclidinium [place] 62.5 Mcg)*Pt Own Med* 62.5 mcg INH DAILY [facility] Last Admin: 08/10/17 09:24 Dose: 62.5 mcg Ondansetron HCl (Zofran) 4 mg IV Q6H PRN PRN Reason: Nausea/Vomiting Last Admin: 08/08/17 12:33 Dose: 4 mg Pantoprazole Sodium (Protonix) 40 mg PO DAILY@0700 [facility] Last Admin: 08/10/17 06:01 Dose: 40 mg Polyethylene Glycol (Miralax) 17 gm PO DAILY PRN PRN Reason: Constipation Potassium Chloride (Pharmacy To Dose - Potassium Replacement) 1 dose .XX ASDIRECTED PRN PRN Reason: RX to Dose Saccharomyces Boulardii (Florastor) 250 mg PO BID [facility] Last Admin: 08/10/17 08:37 Dose: 250 mg Senna/Docusate Sodium (Senna Plus) 1 tab PO BID PRN PRN Reason: Constipation Simvastatin (Zocor) 20 mg PO BEDTIME [facility] Last Admin: 08/09/17 20:06 Dose: 20 mg Sodium Chloride (Saline Flush) 10 ml FLUSH ASDIRECTED PRN PRN Reason: Keep Vein Open Last Admin: 08/04/17 20:54 Dose: 10 ml Tamsulosin HCl (Flomax) 0.4 mg PO PCBREAKFAST [facility] Last Admin: 08/10/17 10:59 Dose: Not Given Temazepam (Restoril) 7.5 mg PO BEDTIME PRN PRN Reason: Sleep Warfarin Sodium (Coumadin) 1 mg PO MoFr@1800 [facility] Last Admin: 08/07/17 19:01 Dose: 1 mg Warfarin Sodium (Coumadin) 2.5 mg PO SuTuWeThSa@1800 [facility] Warfarin Sodium (Coumadin Sliding Scale) 0 each PO ONETIME@1800 [facility] Stop: 08/10/17 19:00 Discontinued Medications Bumetanide (Bumex) 1 mg IVPUSH ONETIME ONE Stop: 08/06/17 19:39 Last Admin: 08/06/17 19:59 Dose: 1 mg Bumetanide (Bumex) 0.5 mg IVPUSH ONETIME ONE Stop: 08/07/17 07:01 Last Admin: 08/07/17 06:36 Dose: 0.5 mg Bumetanide (Bumex) 0.5 mg IVPUSH ONETIME ONE Stop: 08/09/17 16:50 Last Admin: 08/09/17 16:58 Dose: 0.5 mg Flecainide Acetate (Tambocor) 100 mg PO BID [facility] Last Admin: 08/05/17 09:52 Dose: Not Given Flecainide Acetate (Tambocor) 100 mg PO BID [facility] Last Admin: 08/05/17 09:29 Dose: 100 mg Flecainide Acetate (Tambocor) 50 mg PO NOW STA Stop: 08/05/17 10:35 Last Admin: 08/05/17 10:52 Dose: 50 mg Flecainide Acetate (Tambocor) 150 mg PO BID [facility] Last Admin: 08/09/17 22:37 Dose: Not Given Fluconazole (Diflucan) 100 mg PO DAILY [facility] Stop: 08/16/17 09:01 Last Admin: 08/10/17 08:38 Dose: 100 mg Sodium Chloride (Normal Saline) 1,000 mls @ 250 mls/hr IV ASDIRECTED [facility] Last Admin: 08/04/17 20:54 Dose: 250 mls/hr Piperacillin Sod/Tazobactam (Sod 4.5 gm/ Sodium Chloride) 100 mls @ 200 mls/hr IV ONETIME ONE Stop: 08/04/17 22:35 Last Admin: 08/04/17 22:15 Dose: 200 mls/hr Vancomycin HCl 1 gm/ Sodium (Chloride) 250 mls @ 250 mls/hr IV ONETIME ONE Stop: 08/04/17 23:06 Last Admin: 08/04/17 23:00 Dose: Not Given Vancomycin HCl 1 gm/ Sodium (Chloride) 250 mls @ 250 mls/hr IV ONETIME ONE Stop: 08/04/17 23:31 Last Admin: 08/04/17 22:57 Dose: 250 mls/hr Levofloxacin/Dextrose 750 mg/ (Premix) 150 mls @ 100 mls/hr IV Q24H ANIKA Levofloxacin/Dextrose 750 mg/ (Premix) 150 mls @ 150 mls/hr IV Q48H ANIKA Last Admin: 08/07/17 06:36 Dose: 150 mls/hr Sodium Chloride (Normal Saline) 1,000 mls @ 125 mls/hr IV ASDIRECTED ANIKA Last Admin: 08/06/17 17:21 Dose: 125 mls/hr Dextrose/Sodium Chloride (Dextrose 5%-1/2 Ns) 500 mls @ 999 mls/hr IV ASDIRECTED ANIKA Stop: 08/05/17 09:00 Sodium Chloride (Normal Saline) 1,000 mls @ 75 mls/hr IV ASDIRECTED ANIKA Levofloxacin/Dextrose 250 mg/ (Premix) 50 mls @ 50 mls/hr IV Q24H ANIKA Last Admin: 08/08/17 06:57 Dose: 50 mls/hr Magnesium Sulfate 2 gm/ Premix 50 mls @ 50 mls/hr IV ONETIME ONE Stop: 08/08/17 19:44 Last Admin: 08/08/17 19:15 Dose: 50 mls/hr Lorazepam (Ativan) 0.5 mg IVPUSH ONETIME ONE Stop: 08/05/17 00:18 Last Admin: 08/05/17 00:37 Dose: 0.5 mg Magnesium Oxide (Magnesium Oxide) 400 mg PO WITHDINNER ONE Stop: 08/06/17 17:01 Last Admin: 08/06/17 17:08 Dose: 400 mg Magnesium Oxide (Magnesium Oxide) 800 mg PO ONETIME ONE Stop: 08/07/17 08:01 Last Admin: 08/07/17 08:02 Dose: 800 mg Magnesium Oxide (Magnesium Oxide) 800 mg PO ONETIME ONE Stop: 08/08/17 08:01 Last Admin: 08/08/17 09:14 Dose: 800 mg Metoprolol Tartrate (Lopressor) 25 mg PO BID ANIKA Last Admin: 08/10/17 08:46 Dose: Not Given Midodrine (Midodrine) 5 mg PO TIDAC ANIKA Last Admin: 08/08/17 10:03 Dose: 5 mg Midodrine (Midodrine) 5 mg PO NOW STA Stop: 08/08/17 13:14 Last Admin: 08/08/17 14:01 Dose: 5 mg Morphine Sulfate (Morphine) 0.5 mg IVPUSH Q4H PRN PRN Reason: Other Stop: 08/06/17 00:10 (Umeclidinium [place] 62.5 Mcg)*Pt Own Med* 62.5 mcg PO DAILY [facility] Last Admin: 08/05/17 15:38 Dose: Not Given Pantoprazole Sodium (Protonix Iv) 40 mg .XX ONETIME ONE Stop: 08/05/17 00:31 Last Admin: 08/05/17 00:48 Dose: 40 mg Saccharomyces Boulardii (Florastor) 500 mg PO DAILY [facility] Last Admin: 08/07/17 08:02 Dose: 500 mg Scopolamine (Transderm-Scop) 1.5 mg TRDERM Q72H ONE Stop: 08/08/17 13:21 Last Admin: 08/08/17 14:00 Dose: 1.5 mg Spironolactone (Aldactone) 25 mg PO DAILY [facility] Last Admin: 08/07/17 11:46 Dose: 25 mg Warfarin Sodium (Coumadin) 2.5 mg PO SuTuWeThSa@1800 [facility] Last Admin: 08/05/17 09:09 Dose: Not Given Warfarin Sodium (Coumadin) 2.5 mg PO SuTuWeThSa@1800 [facility] Last Admin: 08/09/17 17:48 Dose: 2.5 mg - Exam Quality Assessment: Supplemental Oxygen General: Alert, Oriented, Cooperative, No Acute Distress HEENT: Pupils Equal, Pupils Reactive, EOMI, Mucous Membr. Moist/[place] Neck: Supple, Trachea Midline, No JVD, No Thyromegaly Lungs: Normal Respiratory Effort, Decreased Breath Sounds, Crackles (mild bibasilar), Rhonchi Cardiovascular: Irregular Rhythm GI/Abdominal Exam: Normal Bowel Sounds, Soft, Non-Tender, No Organomegaly, No Distention, No Abnormal Bruit (Male) Exam: Deferred Back Exam: Normal Inspection, Decreased Range of Motion Extremities: Normal Inspection, Normal Range of Motion, Non-Tender, Normal Capillary Refill, Pedal Edema (trace edema) Peripheral Pulses: 2+: Dorsalis Pedis (L), Dorsalis Pedis (R) Skin: Warm, Dry, Intact Neurological: No New Focal Deficit Psy/Mental Status: Alert, Normal Affect, Normal Mood - Problem List Review Problem List Initiated/Reviewed/Updated: Yes - My Orders Last 24 Hours: My Active Orders 08/09/17 13:50 Resuscitation Status Routine 08/09/17 17:15 Hydrocortisone Sod Succinate [Solu-CORTEF] 100 mg IVPUSH Q6H 08/10/17 11:21 Consult to Speech Language Pathology [CORPORATE TRAVEL CONSULTANT Evaluation and Treatment] [CONS] Routine 08/10/17 18:00 Warfarin Sliding Scale [Coumadin Sliding Scale] 0 each PO ONETIME@1800 08/10/17 21:00 Metoprolol Tartrate [Lopressor] 12.5 mg PO BID 08/12/17 18:00 Warfarin [Coumadin] 2.5 mg PO SuTuWeThSa@1800 - Plan Plan:: Assessment/Plan: Acute: Hypotension With Pre-sycopal Episode - Intermittent Episode/Positive for Orthostasis - Stat CXR, Troponin x 1 and EKG: all benign - Likely Autonomic Dysfunction - He responds marginally with Midodrine - Sudden hypotension and fainted (pre-syncope) when he got up to go to the bathroom - Titrate to wean off pressor drip - Cortisol level normal; will d/c solucortef - Continue Midodrine and will add mineralocorticoid Left Lower Lobe 2.2 Centimeter Mass - Has Hx/o Lung CA S/p Lung Lobectomy - New since prior CT scan (11/2016) - Recommend histologic sampling - Follow up with Dr. Riley in [place] after discharge S/p Aspiration Syndrome/Bronchitis vs Pneumonia - Current Chest-XR shows atelectasis; repeat CXR this am shows improved lungs - CT scan; shows emphysema and bibasialr fibrosis; no obvious infiltrate - Recently completed treatment of acute on chronic lower lobe pneumonia; s/p intubation - He carries a hx/o left lung lobectomy due to lung cancer and pyrosis - He was coughing up thick dark-yellowish colored sputum: pos for alirio and kleb pneumoniae - Aspiration Precaution and PPI - Continue oral anti-fungal agent - Discontinue IV ATB and Continue Supplemental O2 Non-Oliguric Renal Failure, Appears to be at baseline - Acute on Chronic; Likely 2/2 poor oral/fluid intake - He has been switched to thick fluids due possible neha-pharyngeal dysfunction - Has underlying CKD Stage 3 - Spec gravity 1.030 suggestive of dehydration - Cr 2.5--> 1.8 --> 1.9 - Continue monitor output CHF Exacerbation, Improving - Pro BNP rising; 17,000--> 20,000--> 10,000 range (has small pleural effusion) - 2D Echo 07/28/2017: EF 40-45% - Continue 2,000 ml fluid restriction - Foam Rubber Fabricator consult for CHF/heart healthy diet - Hold lasix/Aldactone if pressures remains low Leukocytosis, Continues to improve - Likely 2/2 Aspiration - WBC is 23K --> 10.73 --> 13.23 - CRP is 2.4--> 4.2--> 4.8--> 4.9 - Treatment as above and will monitor Dysphagia, Unchanged - Had was recently intubation in [place] - CORPORATE TRAVEL CONSULTANT following - Diet NDD1/Pureed, thickened liquids Generalized Weakness, Unchanged - 2/2 Above - PT recommend SNF/Rehab Resolved: S/p AMS - 2/2 Sedation and Dehydration - on Ambien for Insomnia - He seems to be back at baseline Dehydration - 2/2 poor intake - His oral intake has not been good recently - His diet was also changed to thick fluids during his recent hospitalization in [place] - IV hydration and monitor volume status Chronic: AR Atrial Fibrillation on Warfarin-INR therapeutic; HR controlled GERD HLD Respiratory Failure Hx/o Lung Cancer S/p Lobectomy Hx/o Recurrent PNA Insomnia Plan: Patient looks is much better clinically this morning Titrate to wean off dopamin drip; continue midodrine and start florinef pending pro BNP level Video Swallow Study as outpatient as Dr. Tavera, Radiologist out until next week PT/OT to re-assess this afternoon if he is symptomatic with activity and or ambulation CM/SW for d/c planning; is in agreement for SNF for rehab stay. SW working on placement Aspiration/Fall Precautions Recommend SNF/Rehab Code status:DNR/DNI Prognosis remains guarged. Spoke to family and DPOA and updated them about this clinical progress. LOS > 96 hrs due to slow response to treatment and for SNF/ Rehab placement
[2017-08-10] MEDS: Sodium Chloride 0.9% 10 ML Syringe FLUSH PRN (16:42)
[2017-08-10] MEDS ORDERED: Warfarin Sliding Scale PO SCH (18:00)
[2017-08-10] MEDS: Simvastatin 20 MG Tab PO SCH (20:17)
[2017-08-10] MEDS ORDERED: Bumetanide 1 MG/4 ML MDV IVPUSH ONE (21:51)
[2017-08-11] MEDS: Pantoprazole 40 MG Tab.CR PO SCH (06:24)
[2017-08-11] MEDS: Midodrine 5 MG Tab PO SCH ×2 (06:24→10:14)
[2017-08-11] MEDS ORDERED: Fludrocortisone 0.1 MG Tab PO SCH (07:00)
[2017-08-11 08:03] VITALS: BP 120/89
--- NOTE | 2017-08-11 08:04 | PCM.DCSUM1 ---
Discharge Summary - Hospital Course Free Text/Narrative:: This is a 81-year-old elderly white male with past medical history of chronic atrial fibrillation on warfarin, hyperlipidemia, GERD, allergic rhinitis, and history of left upper lung cancer status post lobectomy in 2004 who comes in for evaluation of altered mental status and dehydration. Patient was recently discharged from [facility] 3 days ago for treatment of acute respiratory failure and pneumonia. On this hospitalization, a swallow test was done and patient was placed on thick liquid diet due to some form of dysphasia. It was unclear however if he had a stroke or may be due to complications from his intubation. Per family, he has not been sleeping well for the past 3 days. He has seen his primary care doctor and just started him on Ambien for insomnia. His overall intake however is poor. He is weak and has not had a good sleep according to his . Patient was brought over here to the emergency department for further workup related to his worsening renal function and poor nutritional state.. His initial workup in the emergency department shows a CBC remarkable for WBC of 23.04, MCHC of 31.7, neutrophils 76.1%, lymphocytes of 10.1%, and eosinophils of 0.6%. His INR level is 2.42. His ABG shows a pH of 7.42, PCO2 of 35, PO2 of 64, HCO3 of 22.2, and O2 sat of 92.8%. His chemistry is remarkable for anion gap of 17.1%, BUN of 65, creatinine of 2.5, AST of 53, ALT of 113, and CRP of 2.4. His UA is negative for UTI +1 for occult blood, 2+ for protein, and with specific gravity of greater than or equal to 1.030. Chest x-ray shows interstitial changes and atelectasis on left lower base. Patient is being admitted for acute renal failure, dehydration, altered mental status and aspiration syndrome. While in our care code status was changed to DNR\DNI. He was initially admitted to hospital floor however he did not respond well to treatment and did have an episode of presumed aspiration. He was sensibly moved to ICU. At one point a pressor drip was started after patient had near syncopal episode with sudden hypotension that was stopped and patient was placed on Midodrine yesterday with good response. Checks x-ray has improved. CT scan showed no obvious infiltrate. Dehydration improved. BNP fluctuated. He continues to have generalized weakness however he was able to walk today. Orthostatic blood pressures remained good. He will be discharged today to SNF. He was given a prescription for Midodrine 3 times a day when necessary for hypotension and also Fiorinef for 5 days. He is to follow-up with his primary care provider within 7 days. - Discharge Data Discharge Date: 08/11/17 (Admit date 08/04/17) Discharge Disposition: DC/Tfer to SNF 03 Condition: Fair - Discharge Diagnosis/Problem(s) (1) Acute renal failure SNOMED Code(s): 14772865 ICD Code: N17.9 - ACUTE KIDNEY FAILURE, UNSPECIFIED Status: Acute Priority: High Current Visit: Yes Qualifiers: Acute renal failure type: unspecified Qualified Code(s): N17.9 - Acute kidney failure, unspecified (2) Aspiration syndrome SNOMED Code(s): 55266126 ICD Code: T17.900A - UNSP FB IN RESP TRACT, PART UNSP CAUSING ASPHYX, INIT Status: Acute Priority: High Current Visit: Yes Qualifiers: Encounter type: initial encounter Qualified Code(s): T17.900A - Unspecified foreign body in respiratory tract, part unspecified causing asphyxiation, initial encounter (3) Congestive heart failure with left ventricular diastolic dysfunction SNOMED Code(s): 37778656 ICD Code: I50.30 - UNSPECIFIED DIASTOLIC (CONGESTIVE) HEART FAILURE Status : Acute Priority: High Current Visit: Yes Qualifiers: Congestive heart failure chronicity: acute on chronic Qualified Code(s): I50.33 - Acute on chronic diastolic (congestive) heart failure (4) Left lower lobe pneumonia SNOMED Code(s): 110775462 ICD Code: J18.1 - LOBAR PNEUMONIA, UNSPECIFIED ORGANISM Status: Acute Priority: High Current Visit: Yes Qualifiers: Pneumonia type: due to unspecified organism Qualified Code(s): J18.1 - Lobar pneumonia, unspecified organism (5) Mass of left lung SNOMED Code(s): 278916242 ICD Code: R91.8 - OTHER NONSPECIFIC ABNORMAL FINDING OF LUNG FIELD Status: Acute Priority: High Current Visit: Yes (6) Dehydration, moderate SNOMED Code(s): 5024032438790 ICD Code: E86.0 - DEHYDRATION Status: Resolved Priority: High Current Visit: Yes (7) Dehydration SNOMED Code(s): 29983177 ICD Code: E86.0 - DEHYDRATION Status: Acute Current Visit: No (8) Weakness SNOMED Code(s): 93013976 ICD Code: R53.1 - WEAKNESS Status: Acute Priority: High Current Visit: Yes - Patient Summary/Data Consults: Consultations 08/05/17 00:13 Consult to Case Management [CONS] Routine Consult to Armature Winder Repairer [CONS] Routine OT Evaluation and Treatment [CONS] Routine PT Evaluation and Treatment [CONS] Routine Respiratory Care Assess and Treatment [CONS] Routine NAIL SPECIALIST Evaluation and Treatment [CONS] Routine 08/07/17 11:40 Consult to Youth Liaison Officer [CONS] Routine 08/10/17 11:21 Consult to Speech Language Pathology [NAIL SPECIALIST Evaluation and Treatment] [CONS] Routine - Patient Instructions Diet: Heart Healthy Diet, Low Sodium Fluid Restriction: 2000 mL Activity: As Tolerated Driving: Do Not Drive Showering/Bathing: May Shower Notify Provider of: Fever, Increased Pain, Drainage, Nausea and/or Vomiting ( increased SOB ) - Discharge Plan Prescriptions/Med Rec: Fludrocortisone [Florinef] 0.1 mg PO BIDMEALS 5 Days #10 tablet Midodrine 10 mg PO TIDAC PRN #30 tablet PRN Reason: Hypotnesion Home Medications: Home Meds Acetaminophen/Diphenhydramine [Tylenol Pm Ex-Strength Caplet] 2 tab PO BEDTIME 02/27/15 [History] Albuterol [Ventolin HFA] 2 puff INH Q6H PRN 02/27/15 [History] Ezetimibe [Zetia] 10 mg PO DAILY 02/27/15 [History] Omeprazole 20 mg PO DAILY 02/27/15 [History] Pravastatin [Pravachol] 40 mg PO DAILY 02/27/15 [History] Budesonide [Pulmicort] 0.5 mg IH BID 11/20/16 [History] Flecainide [Tambocor] 100 mg PO BID 11/20/16 [History] Warfarin [Coumadin] 1 mg PO MOTUWETHSA 11/20/16 [History] Warfarin [Coumadin] 2.5 mg PO SUFR 11/20/16 [History] Umeclidinium [place] [Incruse Ellipta*] 62.5 mcg PO DAILY 12/27/16 [History] Albuterol Sulfate 2.5 mg IH BID 12/28/16 [History] Tamsulosin [Flomax] 0.4 mg PO PCBREAKFAST 12/28/16 [History] Metoprolol Tartrate 25 mg PO BID 08/04/17 [History] Sennosides [Senna] 8.6 mg PO ASDIRECTED PRN 08/04/17 [History] Zolpidem [Ambien] 2.5 mg PO BEDTIME 08/04/17 [History] Fludrocortisone [Florinef] 0.1 mg PO BIDMEALS 5 Days #10 tablet 08/11/17 [Rx] Midodrine 10 mg PO TIDAC PRN #30 tablet 08/11/17 [Rx] Patient Handouts: Heart-Healthy Eating Plan, [id number], Warfarin: What You Need to Know, Acute Bronchitis, [id number], Heart Failure, [id number] Forms: ED Department Discharge Referrals: Toribio Franco MD [Primary Care Provider] - (Please call and schedule a post-hospital follow-up appointment with Dr. Franco in 1 week. ) - Discharge Summary/Plan Comment DC Time >30 min.: Yes (45 mins) - General Info Date of Service: 08/11/17 Admission Dx/Problem (Free Text: Dehydration and Acute Renal Failure Subjective Update: Follow Up Functional Status: Reports: Pain Controlled, Tolerating Diet, Ambulating, Urinating. Denies: New Symptoms - Review of Systems General: Reports: Weakness (Chronic ). Denies: Fever, Malaise, Chills HEENT: Denies: Contact Lenses, Dysphasia, Ear Pain, Eye Pain, Glasses, Headaches , Post Nasal Drip, Sinus Congestion, Sore Throat Pulmonary: Reports: Shortness of Breath. Denies: Pleuritic Chest Pain, Cough, Sputum Cardiovascular: Reports: No Symptoms. Denies: Chest Pain, Palpitations, Dyspnea on Exertion, Orthopnea, Edema Gastrointestinal: Reports: No Symptoms. Denies: Abdominal Pain, Constipation, Diarrhea, Nausea, Vomiting Genitourinary: Reports: No Symptoms. Denies: Dysuria, Frequency, Burning, Pain , Urgency Musculoskeletal: Reports: No Symptoms Skin: Reports: No Symptoms. Denies: Cyanosis, Jaundice, Mottled, Pallor Neurological: Reports: Weakness. Denies: Confusion, Dizziness, Headache, Numbness, Pre-Existing Deficit, Trouble Speaking Psychiatric: Reports: No Symptoms. Denies: Confusion, Depression, Mood Lability , Anxiety Systems Review Comment: No overnight issues. Patient reports feeling better although still weak - Patient Data Vitals - Most Recent: Last Vital Signs Temp 97.6 F 08/11/17 04:00 Pulse 58 L 08/10/17 22:27 Resp 17 08/11/17 04:00 BP 106/71 08/11/17 04:00 Pulse Ox 90 L 08/11/17 04:00 Orthostatic Blood Pressure [ 83/54 Standing] Orthostatic Blood Pressure [ 98/49 Sitting] Orthostatic Blood Pressure [ 108/72 Supine] Weight - Most Recent: 206 lb 12.8 oz I&O - Last 24 hours: Intake & Output 08/10/17 08/11/17 08/11/17 22:59 06:59 14:59 Intake Total 640 220 110 Output Total 150 750 250 Balance 490 -530 -140 Lab Results - Last 24 hrs: Laboratory Results - last 24 hr 08/09/17 08/10/17 08/10/17 Range/Units 06:10 09:50 09:50 PT 42.8 H (8.0-13.0) SECONDS INR 3.62 NT-Pro-B Natriuret Pep 78778 H (0-450) pg/mL Cortisol 11.8 ug/dL MILLY Results - Last 24 hrs: Microbiology 08/06/17 06:30 Gram Stain - Final Sputum - Expectorated Sputum Culture - Final Klebsiella Pneumoniae [place] Albicans [place] (Torulopsis) [place] Med Orders - Current: Current Medications Acetaminophen (Tylenol) 650 mg PO Q4H PRN PRN Reason: Pain (Mild 1-3)/fever Last Admin: 08/06/17 09:20 Dose: 650 mg Hydrocodone Bitart/Acetaminophen ([place] 325-5 Mg) 1 tab PO Q4H PRN PRN Reason: Pain (moderate 4-6) Last Admin: 08/10/17 08:39 Dose: 1 tab Albuterol (Proventil Neb Soln) 2.5 mg NEB BID ANIKA Last Admin: 08/10/17 20:33 Dose: 2.5 mg Albuterol/Ipratropium (Duoneb 3.0-0.5 Mg/3 Ml) 3 ml NEB Q4H PRN PRN Reason: Shortness Of Breath/wheezing Last Admin: 08/06/17 03:46 Dose: 3 ml Bisacodyl (Dulcolax) 5 mg PO DAILY PRN PRN Reason: Constipation Last Admin: 08/10/17 08:38 Dose: 5 mg Budesonide (Pulmicort) 0.5 mg NEB BID [facility] Last Admin: 08/10/17 20:33 Dose: 0.5 mg Docusate Sodium (Colace) 100 mg PO BID PRN PRN Reason: Constipation Last Admin: 08/10/17 20:17 Dose: 100 mg Ezetimibe (Zetia) 10 mg PO DAILY [facility] Last Admin: 08/10/17 08:39 Dose: 10 mg Flecainide Acetate (Tambocor) 100 mg PO BID [facility] Last Admin: 08/10/17 20:17 Dose: 100 mg Fludrocortisone Acetate (Florinef) 0.1 mg PO BIDMEALS [facility] Last Admin: 08/11/17 06:24 Dose: 0.1 mg Hydralazine HCl (Apresoline) 20 mg IVPUSH Q4H PRN PRN Reason: Hypertension Promethazine HCl 12.5 mg/ (Sodium Chloride) 50.5 mls @ 100 mls/hr IV Q6H PRN PRN Reason: Nausea/Vomiting Dopamine HCl/Dextrose (Dopamine In D5w 400 Mg/250 Ml) 400 mg in 250 mls @ 6.48 mls/hr IV TITRATE ANIKA; 2 MCG/KG/MIN PRN Reason: Protocol Last Titration: 08/10/17 09:06 Dose: 0 mcg/kg/min, 0 mls/hr Lorazepam (Ativan) 0.25 mg IV Q6H PRN PRN Reason: Anxiety Last Admin: 08/11/17 00:03 Dose: 0.25 mg Magnesium Sulfate (Pharmacy To Dose - Magnesium Replacement) 1 dose .XX ASDIRECTED PRN PRN Reason: RX to Dose Metoprolol Tartrate (Lopressor) 5 mg IVPUSH Q4H PRN PRN Reason: Tachycardia Metoprolol Tartrate (Lopressor) 12.5 mg PO BID [facility] Last Admin: 08/10/17 22:27 Dose: Not Given Midodrine (Midodrine) 10 mg PO TIDAC [facility] Last Admin: 08/11/17 06:24 Dose: 10 mg (Umeclidinium [place] 62.5 Mcg)*Pt Own Med* 62.5 mcg INH DAILY [facility] Last Admin: 08/10/17 09:24 Dose: 62.5 mcg Ondansetron HCl (Zofran) 4 mg IV Q6H PRN PRN Reason: Nausea/Vomiting Last Admin: 08/08/17 12:33 Dose: 4 mg Pantoprazole Sodium (Protonix) 40 mg PO DAILY@0700 [facility] Last Admin: 08/11/17 06:24 Dose: 40 mg Polyethylene Glycol (Miralax) 17 gm PO DAILY PRN PRN Reason: Constipation Potassium Chloride (Pharmacy To Dose - Potassium Replacement) 1 dose .XX ASDIRECTED PRN PRN Reason: RX to Dose Saccharomyces Boulardii (Florastor) 250 mg PO BID [facility] Last Admin: 08/10/17 20:17 Dose: 250 mg Senna/Docusate Sodium (Senna Plus) 1 tab PO BID PRN PRN Reason: Constipation Simvastatin (Zocor) 20 mg PO BEDTIME [facility] Last Admin: 08/10/17 20:17 Dose: 20 mg Sodium Chloride (Saline Flush) 10 ml FLUSH ASDIRECTED PRN PRN Reason: Keep Vein Open Last Admin: 08/10/17 16:42 Dose: 10 ml Tamsulosin HCl (Flomax) 0.4 mg PO PCBREAKFAST [facility] Last Admin: 08/10/17 10:59 Dose: Not Given Temazepam (Restoril) 7.5 mg PO BEDTIME PRN PRN Reason: Sleep Warfarin Sodium (Coumadin) 1 mg PO MoFr@1800 [facility] Last Admin: 08/07/17 19:01 Dose: 1 mg Warfarin Sodium (Coumadin) 2.5 mg PO SuTuWeThSa@1800 [facility] Discontinued Medications Bumetanide (Bumex) 1 mg IVPUSH ONETIME ONE Stop: 08/06/17 19:39 Last Admin: 08/06/17 19:59 Dose: 1 mg Bumetanide (Bumex) 0.5 mg IVPUSH ONETIME ONE Stop: 08/07/17 07:01 Last Admin: 08/07/17 06:36 Dose: 0.5 mg Bumetanide (Bumex) 0.5 mg IVPUSH ONETIME ONE Stop: 08/09/17 16:50 Last Admin: 08/09/17 16:58 Dose: 0.5 mg Bumetanide (Bumex) 0.5 mg IVPUSH ONETIME ONE Stop: 08/10/17 21:52 Last Admin: 08/10/17 22:31 Dose: 0.5 mg Flecainide Acetate (Tambocor) 100 mg PO BID [facility] Last Admin: 08/05/17 09:52 Dose: Not Given Flecainide Acetate (Tambocor) 100 mg PO BID [facility] Last Admin: 08/05/17 09:29 Dose: 100 mg Flecainide Acetate (Tambocor) 50 mg PO NOW STA Stop: 08/05/17 10:35 Last Admin: 08/05/17 10:52 Dose: 50 mg Flecainide Acetate (Tambocor) 150 mg PO BID [facility] Last Admin: 08/09/17 22:37 Dose: Not Given Fluconazole (Diflucan) 100 mg PO DAILY ANIKA Stop: 08/16/17 09:01 Last Admin: 08/10/17 08:38 Dose: 100 mg Hydrocortisone Sodium Succinate (Solu-Cortef) 100 mg IVPUSH Q6H [facility] Last Admin: 08/10/17 16:42 Dose: 100 mg Sodium Chloride (Normal Saline) 1,000 mls @ 250 mls/hr IV ASDIRECTED [facility] Last Admin: 08/04/17 20:54 Dose: 250 mls/hr Piperacillin Sod/Tazobactam (Sod 4.5 gm/ Sodium Chloride) 100 mls @ 200 mls/hr IV ONETIME ONE Stop: 08/04/17 22:35 Last Admin: 08/04/17 22:15 Dose: 200 mls/hr Vancomycin HCl 1 gm/ Sodium (Chloride) 250 mls @ 250 mls/hr IV ONETIME ONE Stop: 08/04/17 23:06 Last Admin: 08/04/17 23:00 Dose: Not Given Vancomycin HCl 1 gm/ Sodium (Chloride) 250 mls @ 250 mls/hr IV ONETIME ONE Stop: 08/04/17 23:31 Last Admin: 08/04/17 22:57 Dose: 250 mls/hr Levofloxacin/Dextrose 750 mg/ (Premix) 150 mls @ 100 mls/hr IV Q24H [facility] Levofloxacin/Dextrose 750 mg/ (Premix) 150 mls @ 150 mls/hr IV Q48H [facility] Last Admin: 08/07/17 06:36 Dose: 150 mls/hr Sodium Chloride (Normal Saline) 1,000 mls @ 125 mls/hr IV ASDIRECTED [facility] Last Admin: 08/06/17 17:21 Dose: 125 mls/hr Dextrose/Sodium Chloride (Dextrose 5%-1/2 Ns) 500 mls @ 999 mls/hr IV ASDIRECTED ANIKA Stop: 08/05/17 09:00 Sodium Chloride (Normal Saline) 1,000 mls @ 75 mls/hr IV ASDIRECTED [facility] Levofloxacin/Dextrose 250 mg/ (Premix) 50 mls @ 50 mls/hr IV Q24H [facility] Last Admin: 08/08/17 06:57 Dose: 50 mls/hr Magnesium Sulfate 2 gm/ Premix 50 mls @ 50 mls/hr IV ONETIME ONE Stop: 08/08/17 19:44 Last Admin: 08/08/17 19:15 Dose: 50 mls/hr Lorazepam (Ativan) 0.5 mg IVPUSH ONETIME ONE Stop: 08/05/17 00:18 Last Admin: 08/05/17 00:37 Dose: 0.5 mg Magnesium Oxide (Magnesium Oxide) 400 mg PO WITHDINNER ONE Stop: 08/06/17 17:01 Last Admin: 08/06/17 17:08 Dose: 400 mg Magnesium Oxide (Magnesium Oxide) 800 mg PO ONETIME ONE Stop: 08/07/17 08:01 Last Admin: 08/07/17 08:02 Dose: 800 mg Magnesium Oxide (Magnesium Oxide) 800 mg PO ONETIME ONE Stop: 08/08/17 08:01 Last Admin: 08/08/17 09:14 Dose: 800 mg Metoprolol Tartrate (Lopressor) 25 mg PO BID [facility] Last Admin: 08/10/17 08:46 Dose: Not Given Midodrine (Midodrine) 5 mg PO TIDAC [facility] Last Admin: 08/08/17 10:03 Dose: 5 mg Midodrine (Midodrine) 5 mg PO NOW STA Stop: 08/08/17 13:14 Last Admin: 08/08/17 14:01 Dose: 5 mg Morphine Sulfate (Morphine) 0.5 mg IVPUSH Q4H PRN PRN Reason: Other Stop: 08/06/17 00:10 (Umeclidinium [place] 62.5 Mcg)*Pt Own Med* 62.5 mcg PO DAILY [facility] Last Admin: 08/05/17 15:38 Dose: Not Given Pantoprazole Sodium (Protonix Iv) 40 mg .XX ONETIME ONE Stop: 08/05/17 00:31 Last Admin: 08/05/17 00:48 Dose: 40 mg Saccharomyces Boulardii (Florastor) 500 mg PO DAILY [facility] Last Admin: 08/07/17 08:02 Dose: 500 mg Scopolamine (Transderm-Scop) 1.5 mg TRDERM Q72H ONE Stop: 08/08/17 13:21 Last Admin: 08/08/17 14:00 Dose: 1.5 mg Spironolactone (Aldactone) 25 mg PO DAILY [facility] Last Admin: 08/07/17 11:46 Dose: 25 mg Warfarin Sodium (Coumadin) 2.5 mg PO SuTuWeThSa@1800 [facility] Last Admin: 08/05/17 09:09 Dose: Not Given Warfarin Sodium (Coumadin) 2.5 mg PO SuTuWeThSa@1800 [facility] Last Admin: 08/09/17 17:48 Dose: 2.5 mg Warfarin Sodium (Coumadin Sliding Scale) 0 each PO ONETIME@1800 [facility] Stop: 08/10/17 19:00 Last Admin: 08/10/17 17:43 Dose: Not Given - Exam Quality Assessment: Reports: Supplemental Oxygen, DVT Prophylaxis General: Reports: Alert, Oriented, Cooperative, No Acute Distress HEENT: Reports: Pupils Equal, Pupils Reactive, EOMI, Mucous Membr. Moist/[place]ackey Neck: Reports: Supple. Denies: No JVD, No Thyromegaly Lungs: Reports: Normal Respiratory Effort, Decreased Breath Sounds, Crackles, Rhonchi Cardiovascular: Reports: Irregular Rhythm GI/Abdominal Exam: Normal Bowel Sounds, Soft, Non-Tender, No Organomegaly, No Distention, No Abnormal Bruit, No Mass, Pelvis Stable (Male) Exam: Deferred Rectal (Males) Exam: Deferred Back Exam: Reports: Normal Inspection, Decreased Range of Motion Extremities: Normal Inspection, Normal Range of Motion, Non-Tender, Normal Capillary Refill, Pedal Edema (Trace) Skin: Reports: Warm, Dry, Intact Neurological: Reports: No New Focal Deficit Psy/Mental Status: Reports: Alert, Normal Affect, Normal Mood Physical Findings Comments:: Patient has responded well to treatment. Walked to this morning and only complaint was legs begin to feel weak. After resting patient able to walk more. Orthostatic blood pressure good. *Q Meaningful Use (DIS) - VTE *Q VTE Criteria *Q: - Stroke *Q Stroke Criteria *Q: - AMI *Q AMI Criteria *Q:
[2017-08-11] MEDS: Ezetimibe 10 MG Tab PO SCH (09:33)
[2017-08-11] MEDS: Flecainide 50 MG Tab PO SCH (09:34)
[2017-08-11] MEDS: Tamsulosin 0.4 MG Cap.ER PO SCH (09:34)
[2017-08-11] MEDS: Saccharomyces Boulardii (Probiotic) 250 MG Cap PO SCH (09:34)
[2017-08-11] MEDS: Metoprolol Tartrate 25 MG Tab PO SCH (09:36)
[2017-08-11] MEDS: Budesonide 0.5 MG/2 ML Neb Susp NEB SCH (09:57)
[2017-08-11] MEDS: Albuterol 0.083% 2.5 MG/3 ML Neb Soln NEB SCH (09:57)
[2017-08-12] MEDS ORDERED: Warfarin 2.5 MG Tab PO SCH (18:00)
== END 2017-08-11 10:29 | DRG 205 ==
LOC: JD.ED 20:25 → UNDOADMIN 23:06 → JD.MS 23:06 → JD.ICU 08-09 10:45 → JD.MS 08-09 10:45 → UNDODISIN 08-11 10:29
PROVIDERS: ADMIT Internal Medicine; ATTEND Internal Medicine
DX: J18.9 Pneumonia, unspecified organism (principal); T17.900A Unspecified foreign body in respiratory tract, part unspecified causing asphyxiation, initial encounter; I50.33 Acute on chronic diastolic (congestive) heart failure; I48.91 Unspecified atrial fibrillation; E78.00 Pure hypercholesterolemia, unspecified; N17.9 Acute kidney failure, unspecified; J98.11 Atelectasis; N18.3 Chronic kidney disease, stage 3 (moderate); R91.8 Other nonspecific abnormal finding of lung field; Z85.118 Personal history of other malignant neoplasm of bronchus and lung; R41.82 Altered mental status, unspecified; T42.6X5A Adverse effect of other antiepileptic and sedative-hypnotic drugs, initial encounter; E86.0 Dehydration; R13.10 Dysphagia, unspecified; R53.1 Weakness; I48.2 Chronic atrial fibrillation; Z79.01 Long term (current) use of anticoagulants; K21.9 Gastro-esophageal reflux disease without esophagitis; E78.5 Hyperlipidemia, unspecified; G47.00 Insomnia, unspecified; B96.1 Klebsiella pneumoniae [K. pneumoniae] as the cause of diseases classified elsewhere; B37.9 Candidiasis, unspecified; I95.9 Hypotension, unspecified; R55 Syncope and collapse; Z66 Do not resuscitate; H54.7 Unspecified visual loss; J30.9 Allergic rhinitis, unspecified; Z87.891 Personal history of nicotine dependence; Z79.899 Other long term (current) drug therapy
CPT/HCPCS: 71010; 96361; 96365; 96367; 99285; 93005; 85025; 85730; 85610; 81001; 82803; 36600; 36415; 80053; 86140; 87040 ×2; J7040; J7030; J7050 ×2; J2543; J3370; P9612; 71020; 71020-26; 71250; 71250-26; 80048; 80299; 82533; 83735; 83880; 84484; 87070; 87077; 87186; 87205; 87493; 92507-GN; 92526-GN; 92610-GN; 93010; 93306; 94640; 94667; 94668; 94760; 94761; 97110-GO; 97110-GP; 97116-GP; 97162-GP; 97165-GO; 97167-GO; 97530-GO; 97530-GP; 97535-GO; 99223; 99231; 99232; 99233; 99239; A9270-GY; C9113; J1265; J1720; J1956; J2060; J2405; J3475

== ENCOUNTER 2018-03-02 10:10 | Emergency (ER) | payer MEDICARE, BC ==
[2018-03-02 10:24] VITALS: BP 117/62
[2018-03-02] MEDS ORDERED: Sodium Chloride 0.9% 10 ML Syringe FLUSH PRN (10:25)
[2018-03-02] MEDS ORDERED: Albuterol/Ipratropium 3.0-0.5 MG/3 ML Neb Soln NEB ONE (10:27)
[2018-03-02] MEDS ORDERED: methylPREDNISolone Sodium Succinate 125 MG/2 ML SDV IVPUSH ONE (10:27)
--- NOTE | 2018-03-02 11:50 | CR ---
Chest: Portable view of the chest was obtained. Heart size is normal. Tortuous thoracic aorta is seen. Mild fibrosis and scarring is noted which appears stable. No acute pulmonary densities are seen. Mild scoliosis is noted within spine with osteopenia. Impression: 1. Incidental findings which are stable. Nothing acute is seen. Diagnostic code #2
--- NOTE | 2018-03-02 13:52 | EDM.PDOC ---
ED HPI GENERAL MEDICAL PROBLEM - General Chief Complaint: Respiratory Problem Stated Complaint: [facility] Time Seen by Provider: 03/02/18 10:14 Source of Information: Reports: Patient, EMS, Family History Limitations: Reports: No Limitations - History of Present Illness INITIAL COMMENTS - FREE TEXT/NARRATIVE: The patient presents with increased shortness of breath for the past few days. He also fell a few days ago with no injuries. He has been very weak for the past few days. His has been out of town for a few days and he was not eating or drinking. He had some coffee daily but he usually has more. He has no fever or chills. He has been coughing. He has no chest pain, abdominal pain , nausea or vomiting. Onset: Gradual Duration: Day(s): (5) Severity: Moderate Improves with: Reports: None Worsens with: Reports: None Associated Symptoms: Reports: Cough, cough w sputum, Shortness of Breath. Denies: Chest Pain, Fever/Chills, Headaches, Nausea/Vomiting - Related Data Allergies Allergy/AdvReac Type Severity Reaction Status Date / Time No Known Allergies Allergy Verified 03/02/18 10:23 Home Meds: Home Meds Acetaminophen/Diphenhydramine [Tylenol Pm Ex-Strength Caplet] 2 tab PO BEDTIME 02/27/15 [History] Albuterol [Ventolin HFA] 2 puff INH QID 02/27/15 [History] Ezetimibe [Zetia] 10 mg PO DAILY 02/27/15 [History] Omeprazole 20 mg PO DAILY 02/27/15 [History] Pravastatin [Pravachol] 40 mg PO DAILY 02/27/15 [History] Budesonide [Pulmicort] 0.5 mg IH BID 11/20/16 [History] Flecainide [Tambocor] 100 mg PO BID 11/20/16 [History] Warfarin [Coumadin] 1 mg PO MO 11/20/16 [History] Warfarin [Coumadin] 2 mg PO ASDIRECTED 11/20/16 [History] Umeclidinium [place] [Incruse Ellipta*] 62.5 mcg INH DAILY 12/27/16 [History] Tamsulosin [Flomax] 0.4 mg PO PCBREAKFAST 12/28/16 [History] Metoprolol Tartrate 25 mg PO BID 08/04/17 [History] Albuterol/Ipratropium [DuoNeb 3.0-0.5 MG/3 ML] 3 ml .XX BID 03/02/18 [History] predniSONE [Prednisone] 40 mg PO DAILY #10 tablet 03/02/18 [Rx] Past Medical History HEENT History: Reports: Allergic Rhinitis Other HEENT History: Wears glasss. Cardiovascular History: Reports: Afib, High Cholesterol Other Cardiovascular History: ablasion Respiratory History: Reports: Other (See Below) Other Respiratory History: recent pneumonia and resp failure Gastrointestinal History: Reports: GERD Genitourinary History: Reports: Renal Disease Oncologic (Cancer) History: Reports: Lung - Infectious Disease History Infectious Disease History: Reports: Chicken Pox, Measles - Past Surgical History Respiratory Surgical History: Reports: Lung Resection Other Respiratory Surgeries/Procedures: L upper lobectomy for lung CA Musculoskeletal Surgical History: Reports: Other (See Below) Other Musculoskeletal Surgeries/Procedures:: elbow Social & Family History - Family History Family Medical History: Noncontributory - Tobacco Use Smoking Status *Q: Former Smoker Used Tobacco, but Quit: Yes Month/Year Tobacco Last Used: 12 yrs ago Second Hand Smoke Exposure: Yes - Caffeine Use Caffeine Use: Reports: None - Recreational Drug Use Recreational Drug Use: No - Living Situation & Occupation Living situation: Reports: , with Spouse Occupation: Retired ED ROS GENERAL - Review of Systems Review Of Systems: See Below Constitutional: Reports: Weakness HEENT: Reports: No Symptoms Respiratory: Reports: Shortness of Breath, Cough, Sputum Cardiovascular: Reports: No Symptoms Endocrine: Reports: No Symptoms GI/Abdominal: Reports: No Symptoms : Reports: No Symptoms Musculoskeletal: Reports: No Symptoms ED EXAM, GENERAL - Physical Exam Exam: See Below Exam Limited By: No Limitations General Appearance: Alert, No Apparent Distress Ears: Normal External Exam Nose: Normal Inspection Head: Atraumatic, Normocephalic Neck: Normal Inspection Respiratory/Chest: No Respiratory Distress, Decreased Breath Sounds, Rhonchi Cardiovascular: Regular Rate, Rhythm, No Edema, No Murmur GI/Abdominal: Soft, Non-Tender, No Organomegaly, No Mass Extremities: Normal Inspection Neurological: Alert, Oriented, No Motor/Sensory Deficits EKG INTERPRETATION EKG Date: 03/02/18 Time: 10:47 Rhythm: NSR Rate (Beats/Min): 69 [place]: Normal P-Wave: Present QRS: RBBB ST-T: Normal QT: Normal Course - Vital Signs Last Recorded V/S: Last Vital Signs Temp 98.1 F 03/02/18 10:15 Pulse 70 03/02/18 10:15 Resp 36 H 03/02/18 10:15 BP 117/62 03/02/18 10:15 Pulse Ox 93 L 03/02/18 10:27 - Orders/Labs/Meds Orders: Active Orders 24 hr Category Date Time Status Cardiac Monitoring [RC] . DIRECTED Care 03/02/18 10:25 Active EKG Documentation Completion [RC] STAT Care 03/02/18 10:26 Active Oxygen Therapy [RC] PRN Care 03/02/18 10:25 Active Peripheral IV Care [RC] . DIRECTED Care 03/02/18 10:26 Active RT Aerosol Therapy [RC] ASDIRECTED Care 03/02/18 10:27 Active Sodium Chloride 0.9% [Saline Flush] Med 03/02/18 10:25 Active 10 ml FLUSH ASDIRECTED PRN Peripheral IV Insertion Adult [OM.PC] Stat Oth 03/02/18 10:25 Ordered Medication Orders Sodium Chloride (Saline Flush) 10 ml FLUSH ASDIRECTED PRN PRN Reason: Keep Vein Open Last Admin: 03/02/18 10:32 Dose: 10 ml Labs: Laboratory Tests 03/02/18 03/02/18 03/02/18 Range/Units 10:35 10:35 10:35 WBC 7.87 (4.23-9.07) K/mm3 RBC 4.78 (4.63-6.08) M/mm3 Hgb 13.6 L (13.7-17.5) gm/L Hct 42.1 (40.1-51.0) % MCV 88.1 (79.0-92.2) fl MCH 28.5 (25.7-32.2) pg MCHC 32.3 (32.2-35.5) g/dl RDW Std Deviation 51.9 H (35.1-43.9) fL Plt Count 165 (163-337) K/mm3 MPV 8.3 L (9.4-12.3) fl Neut % (Auto) 69.0 H (34.0-67.9) % Lymph % (Auto) 17.0 L (21.8-53.1) % [place] % (Auto) 12.8 H (5.3-12.2) % Eos % (Auto) 0.5 L (0.8-7.0) Baso % (Auto) 0.1 (0.1-1.2) % Neut # (Auto) 5.42 H (1.78-5.38) K/mm3 Lymph # (Auto) 1.34 (1.32-3.57) K/mm3 [place] # (Auto) 1.01 H (0.30-0.82) K/mm3 Eos # (Auto) 0.04 (0.04-0.54) K/mm3 Baso # (Auto) 0.01 (0.01-0.08) K/mm3 PT (9.5-12.1) SECONDS INR Sodium 137 (136-145) mEq/L Potassium 4.8 (3.5-5.1) mEq/L Chloride 102 (98-107) mEq/L Carbon Dioxide 29 (21-32) mEq/L Anion Gap 10.8 (5-15) BUN 26 H (7-18) mg/dL Creatinine 1.8 H (0.7-1.3) mg/dL Est Cr Clr Drug Dosing 35.93 mL/min Estimated GFR (MDRD) 36 (>60) mL/min BUN/Creatinine Ratio 14.4 (14-18) Glucose 94 (83-115) mg/dL Calcium 9.2 (8.5-10.1) mg/dL Total Bilirubin 0.5 (0.2-1.0) mg/dL AST 25 (15-37) U/L ALT 21 (16-63) U/L Alkaline Phosphatase 111 (46-116) U/L Troponin I < 0.017 (0.00-0.056) ng/mL NT-Pro-B Natriuret Pep 573 H (0-450) pg/mL Total Protein 7.2 (6.4-8.2) g/dl Albumin 3.4 (3.4-5.0) g/dl Globulin 3.8 gm/dL Albumin/Globulin Ratio 0.9 L (1-2) 05/25/18 Range/Units 10:35 WBC (4.23-9.07) K/mm3 RBC (4.63-6.08) M/mm3 Hgb (13.7-17.5) gm/L Hct (40.1-51.0) % MCV (79.0-92.2) fl MCH (25.7-32.2) pg MCHC (32.2-35.5) g/dl RDW Std Deviation (35.1-43.9) fL Plt Count (163-337) K/mm3 MPV (9.4-12.3) fl Neut % (Auto) (34.0-67.9) % Lymph % (Auto) (21.8-53.1) % [place] % (Auto) (5.3-12.2) % Eos % (Auto) (0.8-7.0) Baso % (Auto) (0.1-1.2) % Neut # (Auto) (1.78-5.38) K/mm3 Lymph # (Auto) (1.32-3.57) K/mm3 [place] # (Auto) (0.30-0.82) K/mm3 Eos # (Auto) (0.04-0.54) K/mm3 Baso # (Auto) (0.01-0.08) K/mm3 PT 35.9 H (9.5-12.1) SECONDS INR 3.37 Sodium (136-145) mEq/L Potassium (3.5-5.1) mEq/L Chloride (98-107) mEq/L Carbon Dioxide (21-32) mEq/L Anion Gap (5-15) BUN (7-18) mg/dL Creatinine (0.7-1.3) mg/dL Est Cr Clr Drug Dosing mL/min Estimated GFR (MDRD) (>60) mL/min BUN/Creatinine Ratio (14-18) Glucose (83-115) mg/dL Calcium (8.5-10.1) mg/dL Total Bilirubin (0.2-1.0) mg/dL AST (15-37) U/L ALT (16-63) U/L Alkaline Phosphatase (46-116) U/L Troponin I (0.00-0.056) ng/mL NT-Pro-B Natriuret Pep (0-450) pg/mL Total Protein (6.4-8.2) g/dl Albumin (3.4-5.0) g/dl Globulin gm/dL Albumin/Globulin Ratio (1-2) Meds: Medications Generic Name Dose Route Start Last Admin Trade Name Ever PRN Reason Stop Dose Admin Sodium Chloride 10 ml 03/02/18 10:25 03/02/18 10:32 Saline Flush FLUSH 10 ml ASDIRECTED PRN Administration Keep Vein Open Discontinued Medications Generic Name Dose Route Start Last Admin Trade Name Ever PRN Reason Stop Dose Admin Albuterol/Ipratropium 3 ml 03/02/18 10:27 03/02/18 10:51 Duoneb 3.0-0.5 Mg/3 Ml NEB 03/02/18 10:28 3 ml ONETIME ONE Administration Methylprednisolone Sodium Succinate 125 mg 03/02/18 10:27 03/02/18 10:32 Solu-Medrol IVPUSH 03/02/18 10:28 125 mg ONETIME ONE Administration - Re-Assessments/Exams Free Text/Narrative Re-Assessment/Exam: 03/02/18 13:51 I ordered an IV saline lock, EKG, CXR, labs, duoneb, and solumedrol 125mg IV. His EKG shows a RBBB with no acute changes. His CXR shows some scaring but nothing new. His CBC looks good. He INR was therapeutic. His creatinine was 1.8. His creatinine has been about 1.9 most times he has been here. His troponin is negative. His BNP is 573. He has been much higher when he has been here before. He feels better. I am not sure if I can discharge him though. His oxygen saturations dip down and he has generalized weakness. I am going to feed him and give him something to drink and then try to get him up. 03/02/18 14:32 He did good. He has a COPD exacerbation. I will get him on some steroids for a few days. Departure - Departure Time of Disposition: 14:32 Disposition: Home, Self-Care 01 Condition: Good Clinical Impression: Generalized weakness, COPD exacerbation - Discharge Information Prescriptions: predniSONE [Prednisone] 40 mg PO DAILY #10 tablet Referrals: Toribio Franco MD [Primary Care Provider] - 1 Week Forms: ED Department Discharge Additional Instructions: Take your medication as prescribed. Take the prednisone daily for 5 days. Take your coumadin every other day for 5 days. The prednisone can raise your coumadin level. Follow up early next week to get your coumadin level checked early next week. - My Orders Last 24 Hours: My Active Orders 03/02/18 10:25 Cardiac Monitoring [RC] . DIRECTED Oxygen Therapy [RC] PRN Sodium Chloride 0.9% [Saline Flush] 10 ml FLUSH ASDIRECTED PRN Peripheral IV Insertion Adult [OM.PC] Stat 03/02/18 10:26 EKG Documentation Completion [RC] STAT Peripheral IV Care [RC] . DIRECTED 03/02/18 10:27 RT Aerosol Therapy [RC] ASDIRECTED - Assessment/Plan Last 24 Hours: My Active Orders 03/02/18 10:25 Cardiac Monitoring [RC] . DIRECTED Oxygen Therapy [RC] PRN Sodium Chloride 0.9% [Saline Flush] 10 ml FLUSH ASDIRECTED PRN Peripheral IV Insertion Adult [OM.PC] Stat 03/02/18 10:26 EKG Documentation Completion [RC] STAT Peripheral IV Care [RC] . DIRECTED 03/02/18 10:27 RT Aerosol Therapy [RC] ASDIRECTED
== END 2018-03-02 14:50 | disposition home or self-care (01) ==
LOC: JD.ED 10:10
DX: J44.1 Chronic obstructive pulmonary disease with (acute) exacerbation (principal); E78.00 Pure hypercholesterolemia, unspecified; Z79.899 Other long term (current) drug therapy; Z87.891 Personal history of nicotine dependence
CPT/HCPCS: 36415; 71045; 80053; 83880; 84484; 85025; 85610; 93005; 94640; 96374; 99285; J2930; J7050; 99284

== ENCOUNTER 2018-10-15 06:38 | Day surgery (SDC) | payer MEDICARE, BC ==
[~2018-10-15 06:38] MED LIST: Lactated Ringers 1,000 ML IV SCH; Lidocaine 1%/Sod Bicarbonate in NS 8.4% 1 ML Syringe IDERM PRN; Sodium Chloride 0.9% 10 ML Syringe FLUSH PRN
[2018-10-15] MEDS ORDERED: Propofol 200 MG/20 ML SDV ONE (07:52)
[2018-10-15] MEDS ORDERED: Lidocaine 1% 4 ML ONE (07:53)
--- NOTE | 2018-10-15 08:40 | PCM.OPNOTE ---
- General Post-Op/Procedure Note Date of Surgery/Procedure: 10/15/18 Operative Procedure(s): EGD with BX Pre Op Diagnosis: dysphagia Post-Op Diagnosis: dysphagia Anesthesia Technique: MAC Primary Surgeon: Bill Gaston EBL in mLs: 0 Complications: None Condition: Good
[2018-10-15 09:10] VITALS: BP 124/69
--- NOTE | 2018-10-15 09:10 | PCM.PREANE ---
Preanesthetic Assessment - Anesthesia/Transfusion/Family Hx Anesthesia History: Prior Anesthesia Without Reaction Family History of Anesthesia Reaction: No Transfusion History: No Prior Transfusion(s) - Review of Systems General: No Symptoms Pulmonary: No Symptoms Cardiovascular: Dyspnea on Exertion Gastrointestinal: Abdominal Pain (RLQ) Neurological: No Symptoms Other: Reports: None - Physical Assessment NPO Status Date: 10/14/18 NPO Status Time: 18:00 Pulse: 74 O2 Sat by Pulse Oximetry: 95 Respiratory Rate: 16 Blood Pressure: 124/69 Temperature: 36.6 C Vital Signs: Last Vital Signs Temp 36.3 C 10/15/18 08:37 Pulse 62 10/15/18 08:37 Resp 16 10/15/18 08:37 BP 99/60 10/15/18 08:37 Pulse Ox 95 10/15/18 08:37 Height: 1.83 m Weight: 88.904 kg ASA Class: 3 Mental Status: Alert & Oriented x3 Airway Class: Mallampati = 1 Dentition: Reports: Dentures Thyro-Mental Finger Breadths: 3 Mouth Opening Finger Breadths: 3 ROM/Head Extension: Limited/Partial (muscle pain) Lungs: Clear to Auscultation, Normal Respiratory Effort Cardiovascular: Regular Rate, Regular Rhythm - Lab Values: Laboratory Last Values PT 16.1 SECONDS (9.5-12.1) H 10/15/18 07:05 INR 1.49 10/15/18 07:05 Sodium 142 mEq/L (136-145) 10/15/18 07:05 Potassium 4.1 mEq/L (3.5-5.1) 10/15/18 07:05 Chloride 106 mEq/L (98-107) 10/15/18 07:05 Carbon Dioxide 27 mEq/L (21-32) 10/15/18 07:05 Anion Gap 13.1 (5-15) 10/15/18 07:05 BUN 14 mg/dL (7-18) 10/15/18 07:05 Creatinine 1.5 mg/dL (0.7-1.3) H 10/15/18 07:05 Est Cr Clr Drug Dosing 42.39 mL/min 10/15/18 07:05 Estimated GFR (MDRD) 45 mL/min (>60) 10/15/18 07:05 BUN/Creatinine Ratio 9.3 (14-18) L 10/15/18 07:05 Glucose 95 mg/dL (83-115) 10/15/18 07:05 Calcium 9.1 mg/dL (8.5-10.1) 10/15/18 07:05 - Allergies Allergies/Adverse Reactions: Allergies Allergy/AdvReac Type Severity Reaction Status Date / Time No Known Allergies Allergy Verified 10/12/18 14:48 - Blood Blood Available: No Product(s) Available: None - Anesthesia Plan Pre-Op Medication Ordered: Beta Minnie Beta Minnie: Metoprolol Med Last Dose Date: 10/14/18 Med Last Dose Time: 20:00 - Acknowledgements Anesthesia Type Planned: MAC Pt an Appropriate Candidate for the Planned Anesthesia: Yes Alternatives and Risks of Anesthesia Discussed w Pt/Guardian: Yes Pt/Guardian Understands and Agrees with Anesthesia Plan: Yes PreAnesthesia Questionnaire HEENT History: Reports: None Other HEENT History: Wears glasss. Cardiovascular History: Reports: Afib, Heart Failure, High Cholesterol, Hypertension, Other (See Below) Other Cardiovascular History: Sinoatrial node dysfunction Respiratory History: Reports: COPD, Other (See Below) Other Respiratory History: Aspiration, left lung mass, respiratory arrest, hypoxia, cough Gastrointestinal History: Reports: Hemorrhoids Genitourinary History: Reports: Other (See Below) Other Genitourinary History: Chronic kidney disease stage III, balanoposthitis, hypertrophy of prostate Musculoskeletal History: Reports: None Neurological History: Reports: Other (See Below) Other Neuro History: Acute encephalopathy Psychiatric History: Reports: None Endocrine/Metabolic History: Reports: None Hematologic History: Reports: None Immunologic History: Reports: None Oncologic (Cancer) History: Reports: Other (See Below) Other Oncologic History: Malignant neoplasm of bronchus/lung Dermatologic History: Reports: None - Infectious Disease History Infectious Disease History: Reports: Chicken Pox, Measles - Past Surgical History Head Surgeries/Procedures: Reports: None HEENT Surgical History: Reports: None Cardiovascular Surgical History: Reports: None Respiratory Surgical History: Reports: Thoracotomy, Other (See Below) Other Respiratory Surgeries/Procedures: Right lung lobectomy, right thoracotomy GI Surgical History: Reports: None Male Surgical History: Reports: None Endocrine Surgical History: Reports: None Neurological Surgical History: Reports: None Musculoskeletal Surgical History: Reports: None Oncologic Surgical History: Reports: None Dermatological Surgical History: Reports: None - SUBSTANCE USE Smoking Status *Q: Former Smoker Tobacco Use Within Last Twelve Months: No Second Hand Smoke Exposure: No Recreational Drug Use History: No - HOME MEDS Home Medications: Home Meds Acetaminophen/Diphenhydramine [Tylenol Pm Ex-Strength Caplet] 2 tab PO BEDTIME 02/27/15 [History] Albuterol [Ventolin HFA] 2 puff INH QID PRN 02/27/15 [History] Ezetimibe [Zetia] 10 mg PO DAILY 02/27/15 [History] Omeprazole 20 mg PO DAILY 02/27/15 [History] Pravastatin [Pravachol] 40 mg PO DAILY 02/27/15 [History] Budesonide [Pulmicort] 0.5 mg NEB BID 11/20/16 [History] Flecainide [Tambocor] 100 mg PO BID 11/20/16 [History] Warfarin [Coumadin] 1 mg PO DAILY 11/20/16 [History] Umeclidinium [place] [Incruse Ellipta*] 62.5 mcg INH DAILY 12/27/16 [History] Metoprolol Tartrate 25 mg PO BID 08/04/17 [History] Albuterol Sulfate 2.5 mg NEB BID 08/23/18 [History] Ipratropium/Albuterol Sulfate [Iprat-Albut 0.5-3(2.5) MG/3 ML] 3 ml INH BID PRN 09/14/18 [History] Amoxicillin/Clavulanate K [Augmentin 875-125 MG] 1 tab PO Q12H 5 Days #10 tablet 09/19/18 [Rx] Saccharomyces [place]oul[place]ii [Florastor] 250 mg PO BID 10/12/18 [History] Zolpidem Tartrate [Ambien] 2.5 mg PO BEDTIME PRN 10/12/18 [History] guaiFENesin [Mucinex] 600 mg PO BID 10/12/18 [History] - CURRENT (IN HOUSE) MEDS Current Meds: Current Medications Lactated Ringer's (Ringers, Lactated) 1,000 mls @ 125 mls/hr IV ASDIRECTED ANIKA Last Admin: 10/15/18 07:08 Dose: 125 mls/hr Lidocaine/Sodium Bicarbonate (Buffered Lidocaine 1% In Ns 8.4%) 0.25 ml IDERM ONETIME PRN PRN Reason: Prior to IV Start Last Admin: 10/15/18 07:08 Dose: 0.25 ml Sodium Chloride (Saline Flush) 10 ml FLUSH ASDIRECTED PRN PRN Reason: Keep Vein Open Discontinued Medications Lidocaine HCl (Xylocaine-Mpf 1%) Confirm Administered Dose 4 mls @ as directed .ROUTE .STK-MED ONE Stop: 10/15/18 07:54 Propofol (Diprivan 20 Ml) Confirm Administered Dose 200 mg .ROUTE .STK-MED ONE Stop: 10/15/18 07:53
--- NOTE | 2018-10-16 07:54 | OR ---
DATE OF OPERATION: 10/15/2018 SURGEON: Bill Gaston MD PREOPERATIVE DIAGNOSIS: Dysphagia. POSTOPERATIVE DIAGNOSIS: Dysphagia. OPERATION PERFORMED: Esophagogastroduodenoscopy with biopsy. FINDINGS: Some petechia in the antrum, which was biopsied. Multiple fundic gland polyps. Large hiatal hernia. GE junction located at 38 cm. Some erosions and irregularity at the Z-line. Four-quadrant biopsies were done of the GE junction. The second portion of the duodenum, duodenal bulb, pyloric channel, and balance of the esophagus did not show any pathology. Outside of the fundic gland polyps and the petechia, the stomach was unremarkable. ANESTHESIA: Under IV sedation. DESCRIPTION OF PROCEDURE: The patient was taken to the endoscopy room, placed in a supine position, connected to monitoring equipment, given IV sedation, placed in the left lateral position. A bite block was inserted. IV sedation given. The video Olympus gastroscope placed in the posterior oropharynx and threaded past the cricopharyngeus and under direct vision, threaded down the esophagus and into the stomach. The stomach was insufflated. The scope was passed through the pylorus to the second portion of the duodenum and slowly withdrawn noting normal second portion of the duodenum, duodenal bulb, and pyloric channel. Antrum showed a little petechia, which was biopsied. Body and fundus of the stomach showed fundic gland polyps. J-maneuver was performed showing a large hiatal hernia with incompetence of the hiatus. The scope was withdrawn and the GE junction located at about 38 cm showed some erosions and irregularity at the Z- line. Four-quadrant biopsies were taken. The rest of the esophagus was viewed as the scope withdrawn and was unremarkable. The patient tolerated the procedure. Specimen sent to pathology in a labeled container, and the patient will be followed up in the clinic with Dr. Franco. ESTIMATED BLOOD LOSS: MMODAL /[id number]
== END 2018-10-15 09:32 | disposition home or self-care (01) ==
LOC: JD.SDS 06:38
PROVIDERS: ATTEND Surgery
DX: K20.9 Esophagitis, unspecified (principal); K31.7 Polyp of stomach and duodenum; K44.9 Diaphragmatic hernia without obstruction or gangrene; I13.0 Hypertensive heart and chronic kidney disease with heart failure and stage 1 through stage 4 chronic kidney disease, or unspecified chronic kidney disease; N18.3 Chronic kidney disease, stage 3 (moderate); J44.9 Chronic obstructive pulmonary disease, unspecified; I50.9 Heart failure, unspecified; K21.9 Gastro-esophageal reflux disease without esophagitis; I49.5 Sick sinus syndrome; E78.5 Hyperlipidemia, unspecified; I48.91 Unspecified atrial fibrillation; Z87.891 Personal history of nicotine dependence; Z79.899 Other long term (current) drug therapy
CPT/HCPCS: 36415; 43239; 80048; 85610; J2704; J7120; J2001

== ENCOUNTER 2018-11-14 21:23 | Inpatient (IN) | payer MEDICARE, BC ==
--- NOTE | 2018-11-14 22:09 | EDM.PDOC ---
ED HPI GENERAL MEDICAL PROBLEM - General Chief Complaint: Respiratory Problem Stated Complaint: [facility] Time Seen by Provider: 11/14/18 22:02 - History of Present Illness INITIAL COMMENTS - FREE TEXT/NARRATIVE: 83-year-old male returns to the emergency room via EMS from [facility] facility with worsening cough and fever. Apparently yesterday he had an aspirating choking episode while drinking some soda. The patient has had several recent bouts of pneumonia thought to be aspiration over the last couple months. The patient developed fevers today has a worsening cough and is becoming more dependent on oxygen. Patient denies any pain states he just doesn't feel well. Denies any chest pain or chest pressure - Related Data Allergies Allergy/AdvReac Type Severity Reaction Status Date / Time No Known Allergies Allergy Verified 11/14/18 21:33 Home Meds: Home Meds Acetaminophen/Diphenhydramine [Tylenol Pm Ex-Strength Caplet] 2 tab PO BEDTIME 02/27/15 [History] Ezetimibe [Zetia] 10 mg PO DAILY 02/27/15 [History] Omeprazole 20 mg PO DAILY 02/27/15 [History] Pravastatin [Pravachol] 40 mg PO DAILY 02/27/15 [History] Budesonide [Pulmicort] 0.5 mg NEB BID 11/20/16 [History] Flecainide [Tambocor] 100 mg PO BID 11/20/16 [History] Warfarin [Coumadin] 2 mg PO SUTUWETHFRSA 11/20/16 [History] Umeclidinium [place] [Incruse Ellipta*] 62.5 mcg INH DAILY 12/27/16 [History] Metoprolol Tartrate 12.5 mg PO BID 08/04/17 [History] Albuterol Sulfate 2.5 mg NEB Q4H PRN 08/23/18 [History] Ipratropium/Albuterol Sulfate [Iprat-Albut 0.5-3(2.5) MG/3 ML] 3 ml INH BID 04/25 [History] guaiFENesin [Mucinex] 600 mg PO BID 10/12/18 [History] Tamsulosin [Flomax] 0.4 mg PO BID 11/14/18 [History] Past Medical History HEENT History: Reports: None Other HEENT History: Wears glasss. Cardiovascular History: Reports: Afib, Heart Failure, High Cholesterol, Hypertension, Other (See Below) Other Cardiovascular History: Sinoatrial node dysfunction Respiratory History: Reports: COPD, Other (See Below) Other Respiratory History: Aspiration, left lung mass, respiratory arrest, hypoxia, cough Gastrointestinal History: Reports: Hemorrhoids Genitourinary History: Reports: Other (See Below) Other Genitourinary History: Chronic kidney disease stage III, balanoposthitis, hypertrophy of prostate Musculoskeletal History: Reports: None Neurological History: Reports: Other (See Below) Other Neuro History: Acute encephalopathy Psychiatric History: Reports: None Endocrine/Metabolic History: Reports: None Hematologic History: Reports: None Immunologic History: Reports: None Oncologic (Cancer) History: Reports: Other (See Below) Other Oncologic History: Malignant neoplasm of bronchus/lung Dermatologic History: Reports: None - Infectious Disease History Infectious Disease History: Reports: Chicken Pox, Measles - Past Surgical History Head Surgeries/Procedures: Reports: None HEENT Surgical History: Reports: None Cardiovascular Surgical History: Reports: None Respiratory Surgical History: Reports: Thoracotomy, Other (See Below) Other Respiratory Surgeries/Procedures: Right lung lobectomy, right thoracotomy GI Surgical History: Reports: None Male Surgical History: Reports: None Endocrine Surgical History: Reports: None Neurological Surgical History: Reports: None Musculoskeletal Surgical History: Reports: None Oncologic Surgical History: Reports: None Dermatological Surgical History: Reports: None Social & Family History - Family History Family Medical History: Noncontributory - Tobacco Use Smoking Status *Q: Former Smoker Used Tobacco, but Quit: Yes Month/Year Tobacco Last Used: 30 yrs ago - Caffeine Use Caffeine Use: Reports: Coffee, Soda - Recreational Drug Use Recreational Drug Use: No - Living Situation & Occupation Living situation: Reports: , with Spouse Occupation: Retired ED ROS GENERAL - Review of Systems Review Of Systems: See Below Constitutional: Reports: Fever, Chills HEENT: Reports: No Symptoms Respiratory: Reports: Shortness of Breath, Cough, Sputum. Denies: Wheezing, Other Cardiovascular: Reports: No Symptoms Endocrine: Reports: No Symptoms GI/Abdominal: Reports: No Symptoms : Reports: No Symptoms Musculoskeletal: Reports: No Symptoms Skin: Reports: No Symptoms Neurological: Reports: No Symptoms Psychiatric: Reports: No Symptoms ED EXAM, GENERAL - Physical Exam Exam: See Below Exam Limited By: Other (Patient answers appropriately patient's is here) General Appearance: No Apparent Distress Eye Exam: Bilateral Eye: Normal Inspection Ears: Normal External Exam, Normal Canal, Hearing Grossly Normal, Normal TMs Throat/Mouth: Normal Inspection, Normal Lips, Normal Gums, Normal Oropharynx, Normal Voice, No Airway Compromise, Other (Dentures in place) Head: Atraumatic, Normocephalic Neck: Supple, Non-Tender. No: Lymphadenopathy (L), Lymphadenopathy (R) Respiratory/Chest: Other (Bibasal crackles or rhonchi much worse on the right side) Cardiovascular: Regular Rate, Rhythm, No Edema, No Murmur, Other (Rate about 100 ) GI/Abdominal: Normal Bowel Sounds, Soft, Non-Tender, Pelvis Stable. No: Distended, Guarding, Rigid, Rebound, Tender Back Exam: Normal Inspection. No: CVA Tenderness (L), CVA Tenderness (R) Neurological: Alert Skin Exam: Warm, Dry, Intact EKG INTERPRETATION EKG Date: 11/14/18 Rhythm: NSR Veyo: LAD-Left Veyo Deviation P-Wave: Present QRS: Other (with LAFB) ST-T: Other (Nonspecific nondiagnostic change) QT: Prolonged (Related to QRS elongation) Comparison: No Change Course - Vital Signs Last Recorded V/S: Last Vital Signs Temp 37.1 C 11/14/18 21:29 Pulse 100 11/14/18 21:29 Resp 44 H 11/14/18 21:29 BP 160/59 H 11/14/18 21:29 Pulse Ox 91 L 11/14/18 22:20 - Orders/Labs/Meds Orders: Active Orders 24 hr Category Date Time Status Patient Status [ADT] Routine ADT 11/15/18 01:20 Active EKG Documentation Completion [RC] STAT Care 11/14/18 22:09 Active RT Aerosol Therapy [RC] ASDIRECTED Care 11/14/18 22:20 Active Chest 1V Frontal [CR] Stat Exams 11/14/18 22:09 Taken CULTURE BLOOD [BC] Stat Lab 11/14/18 22:25 Received CULTURE BLOOD [BC] Stat Lab 11/14/18 22:35 Received Lactated Ringers [Ringers, Lactated] 1,000 ml Med 11/14/18 22:15 Active IV ASDIRECTED Blood Culture x2 Reflex Set [OM.PC] Stat Oth 11/14/18 22:09 Ordered Medication Orders Lactated Ringer's (Ringers, Lactated) 1,000 mls @ 125 mls/hr IV ASDIRECTED [facility] Labs: Laboratory Tests 11/14/18 11/14/18 11/14/18 Range/Units 22:25 22:25 22:25 WBC 12.50 H (4.23-9.07) K/mm3 RBC 4.57 L (4.63-6.08) M/mm3 Hgb 13.1 L (13.7-17.5) gm/L Hct 41.0 (40.1-51.0) % MCV 89.7 (79.0-92.2) fl MCH 28.7 (25.7-32.2) pg MCHC 32.0 L (32.2-35.5) g/dl RDW Std Deviation 48.8 H (35.1-43.9) fL Plt Count 195 (163-337) K/mm3 MPV 8.3 L (9.4-12.3) fl Neutrophils % (Manual) 73 H (40-60) % Band Neutrophils % 6 (0-10) % Lymphocytes % (Manual) 12 L (20-40) % Atypical Lymphs % 0 % Monocytes % (Manual) 8 (2-10) % Eosinophils % (Manual) 0 L (0.8-7.0) % Basophils % (Manual) 1 (0.2-1.2) Platelet Estimate Adequate Plt Morphology Comment Normal RBC Morph Comment Normal PT 22.6 H (9.5-12.1) SECONDS INR 2.10 APTT 49 H (24-31) SECONDS Sodium 140 (136-145) mEq/L Potassium 4.6 (3.5-5.1) mEq/L Chloride 104 (98-107) mEq/L Carbon Dioxide 26 (21-32) mEq/L Anion Gap 14.6 (5-15) BUN 20 H (7-18) mg/dL Creatinine 1.5 H (0.7-1.3) mg/dL Est Cr Clr Drug Dosing 42.39 mL/min Estimated GFR (MDRD) 45 (>60) mL/min BUN/Creatinine Ratio 13.3 L (14-18) Glucose 116 H (83-115) mg/dL Lactic Acid (0.4-2.0) mmol/L Calcium 9.1 (8.5-10.1) mg/dL Total Bilirubin 0.3 (0.2-1.0) mg/dL AST 20 (15-37) U/L ALT 19 (16-63) U/L Alkaline Phosphatase 103 (46-116) U/L Troponin I < 0.017 (0.00-0.056) ng/mL Total Protein 7.7 (6.4-8.2) g/dl Albumin 3.7 (3.4-5.0) g/dl Globulin 4.0 gm/dL Albumin/Globulin Ratio 0.9 L (1-2) Mycoplasma pneumon IgM Positive H (NEGATIVE) 11/14/18 Range/Units 22:35 WBC (4.23-9.07) K/mm3 RBC (4.63-6.08) M/mm3 Hgb (13.7-17.5) gm/L Hct (40.1-51.0) % MCV (79.0-92.2) fl MCH (25.7-32.2) pg MCHC (32.2-35.5) g/dl RDW Std Deviation (35.1-43.9) fL Plt Count (163-337) K/mm3 MPV (9.4-12.3) fl Neutrophils % (Manual) (40-60) % Band Neutrophils % (0-10) % Lymphocytes % (Manual) (20-40) % Atypical Lymphs % % Monocytes % (Manual) (2-10) % Eosinophils % (Manual) (0.8-7.0) % Basophils % (Manual) (0.2-1.2) Platelet Estimate Plt Morphology Comment RBC Morph Comment PT (9.5-12.1) SECONDS INR APTT (24-31) SECONDS Sodium (136-145) mEq/L Potassium (3.5-5.1) mEq/L Chloride (98-107) mEq/L Carbon Dioxide (21-32) mEq/L Anion Gap (5-15) BUN (7-18) mg/dL Creatinine (0.7-1.3) mg/dL Est Cr Clr Drug Dosing mL/min Estimated GFR (MDRD) (>60) mL/min BUN/Creatinine Ratio (14-18) Glucose (83-115) mg/dL Lactic Acid 1.2 (0.4-2.0) mmol/L Calcium (8.5-10.1) mg/dL Total Bilirubin (0.2-1.0) mg/dL AST (15-37) U/L ALT (16-63) U/L Alkaline Phosphatase (46-116) U/L Troponin I (0.00-0.056) ng/mL Total Protein (6.4-8.2) g/dl Albumin (3.4-5.0) g/dl Globulin gm/dL Albumin/Globulin Ratio (1-2) Mycoplasma pneumon IgM (NEGATIVE) Meds: Medications Generic Name Dose Route Start Last Admin Trade Name Freq PRN Reason Stop Dose Admin Lactated Ringer's 1,000 mls @ 125 mls/hr 11/14/18 22:15 Ringers, Lactated IV ASDIRECTED ANIKA Discontinued Medications Generic Name Dose Route Start Last Admin Trade Name Freq PRN Reason Stop Dose Admin Albuterol/Ipratropium 3 ml 11/14/18 22:20 11/14/18 22:41 Duoneb 3.0-0.5 Mg/3 Ml NEB 11/14/18 22:21 3 ml ONETIME ONE Administration Lactated Ringer's 500 mls @ 999 mls/hr 11/14/18 22:12 11/14/18 22:17 Ringers, Lactated IV 11/14/18 22:42 999 mls/hr .BOLUS ONE Administration Ampicillin Sodium/Sulbactam 100 mls @ 200 mls/hr 11/15/18 00:15 11/15/18 00: 17 Sodium 3 gm/ Sodium Chloride IV 11/15/18 00:44 200 mls/hr ONETIME ONE Administration Sodium Chloride Confirm 11/15/18 00:05 11/15/18 00:33 Normal Saline Administered 11/15/18 00:06 Not Given Dose 100 mls @ as directed .ROUTE .STK-MED ONE - Re-Assessments/Exams Free Text/Narrative Re-Assessment/Exam: 11/15/18 00:[address] Sanders early in the evaluation patient will be admitted he does not appear to be septic at this point he'll be started on Unasyn and vancomycin his mycoplasmas positive Departure - Departure Time of Disposition: 00:18 Disposition: Admitted As Inpatient 68 Clinical Impression: Mycoplasma infection, Aspiration into lower respiratory tract Pneumonia Qualifiers: Pneumonia type: aspiration pneumonia Aspiration pneumonia type: due to vomit Laterality: unspecified laterality Lung location: unspecified part of lung Qualified Code(s): J69.0 - Pneumonitis due to inhalation of food and vomit - Discharge Information Referrals: Toribio Franco MD [Primary Care Provider] - Forms: ED Department Discharge - My Orders Last 24 Hours: My Active Orders 11/14/18 22:09 EKG Documentation Completion [RC] STAT Chest 1V Frontal [CR] Stat Blood Culture x2 Reflex Set [OM.PC] Stat 11/14/18 22:15 Lactated Ringers [Ringers, Lactated] 1,000 ml IV ASDIRECTED 11/14/18 22:20 RT Aerosol Therapy [RC] ASDIRECTED 11/14/18 22:25 CULTURE BLOOD [BC] Stat 11/14/18 22:35 CULTURE BLOOD [BC] Stat 11/15/18 01:20 Patient Status [ADT] Routine - Assessment/Plan Last 24 Hours: My Active Orders 11/14/18 22:09 EKG Documentation Completion [RC] STAT Chest 1V Frontal [CR] Stat Blood Culture x2 Reflex Set [OM.PC] Stat 11/14/18 22:15 Lactated Ringers [Ringers, Lactated] 1,000 ml IV ASDIRECTED 11/14/18 22:20 RT Aerosol Therapy [RC] ASDIRECTED 11/14/18 22:25 CULTURE BLOOD [BC] Stat 11/14/18 22:35 CULTURE BLOOD [BC] Stat 11/15/18 01:20 Patient Status [ADT] Routine
[2018-11-14] MEDS ORDERED: Lactated Ringers 500 ML IV ONE (22:12)
[2018-11-14] MEDS ORDERED: Lactated Ringers 1,000 ML IV SCH (22:15)
[2018-11-14] MEDS ORDERED: Albuterol/Ipratropium 3.0-0.5 MG/3 ML Neb Soln NEB ONE (22:20)
[2018-11-14] MEDS ORDERED: Ampicillin/Sulbactam Na 3 GM in Sodium Chloride 0.9% 100 ML IV ONE (23:56)
[2018-11-15] MEDS ORDERED: Ampicillin/Sulbactam Na 3 GM Vial ONE
[2018-11-15] MEDS ORDERED: Sodium Chloride 0.9% 100 ML ONE (00:05)
[2018-11-15] MEDS ORDERED: Ampicillin/Sulbactam Na 3 GM in Sodium Chloride 0.9% 100 ML IV ONE (00:15)
[2018-11-15] MEDS ORDERED: Sodium Chloride 0.9% 1,000 ML IV SCH ×3 (02:15→09:30)
[2018-11-15] MEDS: Levofloxacin/Dextrose 5%-Water 750 MG in Premix Bag 1 BAG IV SCH (02:25)
[2018-11-15] MEDS: Albuterol/Ipratropium 3.0-0.5 MG/3 ML Neb Soln NEB SCH ×2 (02:35→05:29)
[2018-11-15] MEDS ORDERED: Sodium Chloride 0.9% 500 ML IV ONE (03:10)
[2018-11-15] MEDS: Ampicillin/Sulbactam Na 3 GM in Sodium Chloride 0.9% 100 ML IV SCH ×4 (05:43→23:00)
[2018-11-15] MEDS ORDERED: Ampicillin/Sulbactam Na 3 GM in Sodium Chloride 0.9% 100 ML IV SCH (06:00)
--- NOTE | 2018-11-15 07:52 | PCM.SN ---
- Free Text/Narrative Note: Spoke to Dr. Tineo, new hospitalist team provider and discussed case with him. He accepts care under his services and at this point he will now be the attending for this patient admitted overnight.
[2018-11-15] MEDS: Albuterol/Ipratropium 3.0-0.5 MG/3 ML Neb Soln NEB PRN ×3 (09:17→20:32)
--- NOTE | 2018-11-15 09:35 | PCM.HP ---
H&P History of Present Illness - General Date of Service: 11/15/18 Admit Problem/Dx: Admission Diagnosis/Problem Admission Diagnosis/Problem acute respiratory failure with hypoxia Source of Information: Patient, EMS Notes Reviewed, Old Records History Limitations: Reports: Respiratory Distress - History of Present Illness Initial Comments - Free Text/Narative: Mr. Warner is an 83-year-old male resident at [facility] with known history of aspiration pneumonia, COPD, CHF, atrial fibrillation, and multiple chronic medical problems, was brought in via EMS, and was admitted through the emergency room secondary to worsening shortness of breath, cough, and respiratory failure. Last night patient choked after drinking soda and progressively worsened. Patient is a poor historian. In the ER patient was found to be hypoxic with increased respiratory rate and effort. Initially his BP 160/59, WBC of 12.5. In the ER he was given IV bolus of 500 mg LR, antibiotics, and placed on O2. Patient was then admitted to the hospital. Patient was seen in August and September for aspiration pneumonia and on both occasions his Mycoplasma IgM was positive. Patient was treated for the Mycoplasma in September with 5 days of azithromycin. Patient is again has a positive IgM for Mycoplasma. Patient has a know history of aspiration with a swallow study done last month showing aspiration with residual. He has been admitted several times over the last year for similar episodes. Echo done 07/2017 showed an EF of 40% Onset of Symptoms: Reports: Today - Related Data Allergies/Adverse Reactions: Allergies Allergy/AdvReac Type Severity Reaction Status Date / Time No Known Allergies Allergy Verified 11/15/18 02:29 Home Medications: Home Meds Acetaminophen/Diphenhydramine [Tylenol Pm Ex-Strength Caplet] 2 tab PO BEDTIME 02/27/15 [History] Ezetimibe [Zetia] 10 mg PO DAILY 02/27/15 [History] Omeprazole 20 mg PO DAILY 02/27/15 [History] Pravastatin [Pravachol] 40 mg PO DAILY 02/27/15 [History] Budesonide [Pulmicort] 0.5 mg NEB BID 11/20/16 [History] Flecainide [Tambocor] 100 mg PO BID 11/20/16 [History] Warfarin [Coumadin] 2 mg PO SUTUWETHFRSA 11/20/16 [History] Umeclidinium [place] [Incruse Ellipta*] 62.5 mcg INH DAILY 12/27/16 [History] Metoprolol Tartrate 12.5 mg PO BID 08/04/17 [History] Albuterol Sulfate 2.5 mg NEB Q4H PRN 08/23/18 [History] Ipratropium/Albuterol Sulfate [Iprat-Albut 0.5-3(2.5) MG/3 ML] 3 ml INH BID 04/25 [History] guaiFENesin [Mucinex] 600 mg PO BID 10/12/18 [History] Tamsulosin [Flomax] 0.4 mg PO BID 11/14/18 [History] Past Medical History HEENT History: Reports: None Other HEENT History: Wears glasss. Cardiovascular History: Reports: Afib, Heart Failure, High Cholesterol, Hypertension, Other (See Below) Other Cardiovascular History: Sinoatrial node dysfunction Respiratory History: Reports: COPD, Other (See Below) Other Respiratory History: Aspiration, left lung mass, respiratory arrest, hypoxia, cough Gastrointestinal History: Reports: Hemorrhoids Genitourinary History: Reports: Other (See Below) Other Genitourinary History: Chronic kidney disease stage III, balanoposthitis, hypertrophy of prostate Musculoskeletal History: Reports: None Neurological History: Reports: Other (See Below) Other Neuro History: Acute encephalopathy Psychiatric History: Reports: None Endocrine/Metabolic History: Reports: None Hematologic History: Reports: None Immunologic History: Reports: None Oncologic (Cancer) History: Reports: Other (See Below) Other Oncologic History: Malignant neoplasm of bronchus/lung Dermatologic History: Reports: None - Infectious Disease History Infectious Disease History: Reports: Chicken Pox, Measles - Past Surgical History Head Surgeries/Procedures: Reports: None HEENT Surgical History: Reports: None Cardiovascular Surgical History: Reports: None Respiratory Surgical History: Reports: Thoracotomy, Other (See Below) Other Respiratory Surgeries/Procedures: Right lung lobectomy, right thoracotomy GI Surgical History: Reports: None Male Surgical History: Reports: None Endocrine Surgical History: Reports: None Neurological Surgical History: Reports: None Musculoskeletal Surgical History: Reports: None Oncologic Surgical History: Reports: None Dermatological Surgical History: Reports: None Social & Family History - Family History Family Medical History: Noncontributory - Tobacco Use Smoking Status *Q: Former Smoker Used Tobacco, but Quit: Yes Month/Year Tobacco Last Used: 2001 - Caffeine Use Caffeine Use: Reports: Coffee - Recreational Drug Use Recreational Drug Use: No - Living Situation & Occupation Living situation: Reports: , Other ([facility]) Occupation: Retired H&P Review of Systems - Review of Systems: Review Of Systems: See Below General: Reports: Fever, Fatigue HEENT: Reports: No Symptoms Pulmonary: Reports: Shortness of Breath, Cough, Sputum Cardiovascular: Reports: Dyspnea on Exertion. Denies: Chest Pain, Orthopnea Gastrointestinal: Reports: No Symptoms Genitourinary: Reports: No Symptoms Musculoskeletal: Reports: No Symptoms Skin: Reports: No Symptoms Psychiatric: Reports: Confusion Neurological: Reports: Confusion Exam - Exam Exam: See Below - Vital Signs Vital Signs: Last Vital Signs Temp 99.2 F 11/15/18 08:00 Pulse 92 11/15/18 03:06 Resp 32 H 11/15/18 08:00 BP 114/71 11/15/18 08:00 Pulse Ox 95 11/15/18 09:24 Weight: 203 lb 11.2 oz - Exam Quality Assessment: Supplemental Oxygen General: Severe Distress, Lethargic HEENT: Mucosa Moist & [place] Neck: Supple. No: Carotid Bruit Lungs: Crackles (RLL), Rhonchi (RLL), Other (Increased respiratory rate) Cardiovascular: Irregular Rhythm GI/Abdominal Exam: Soft, Non-Tender. No: Hepatomegaly Extremities: Normal Capillary Refill, Pedal Edema Skin: Warm, Dry Neurological: Cranial Nerves Intact, Strength Equal Bilateral, Normal Tone Neuro Extensive - Mental Status: Disorientation to Time, Opens Eyes to Commands (Oriented to place), Slow Response to Commands - Patient Data Lab Results Last 24 hrs: Laboratory Results - last 24 hr 11/14/18 11/14/18 11/14/18 Range/Units 22:25 22:25 22:25 WBC 12.50 H (4.23-9.07) K/mm3 RBC 4.57 L (4.63-6.08) M/mm3 Hgb 13.1 L (13.7-17.5) gm/L Hct 41.0 (40.1-51.0) % MCV 89.7 (79.0-92.2) fl MCH 28.7 (25.7-32.2) pg MCHC 32.0 L (32.2-35.5) g/dl RDW Std Deviation 48.8 H (35.1-43.9) fL Plt Count 195 (163-337) K/mm3 MPV 8.3 L (9.4-12.3) fl Neut % (Auto) (34.0-67.9) % Lymph % (Auto) (21.8-53.1) % [place] % (Auto) (5.3-12.2) % Eos % (Auto) (0.8-7.0) Baso % (Auto) (0.1-1.2) % Neut # (Auto) (1.78-5.38) K/mm3 Lymph # (Auto) (1.32-3.57) K/mm3 [place] # (Auto) (0.30-0.82) K/mm3 Eos # (Auto) (0.04-0.54) K/mm3 Baso # (Auto) (0.01-0.08) K/mm3 Neutrophils % (Manual) 73 H (40-60) % Band Neutrophils % 6 (0-10) % Lymphocytes % (Manual) 12 L (20-40) % Atypical Lymphs % 0 % Monocytes % (Manual) 8 (2-10) % Eosinophils % (Manual) 0 L (0.8-7.0) % Basophils % (Manual) 1 (0.2-1.2) Manual Slide Review Platelet Estimate Adequate Plt Morphology Comment Normal RBC Morph Comment Normal PT 22.6 H (9.5-12.1) SECONDS INR 2.10 APTT 49 H (24-31) SECONDS Puncture Site ABG pH (7.35-7.45) ABG pCO2 (35.0-45.0) mmHg ABG pO2 (80.0-100.0) mmHg ABG HCO3 (22.0-26.0) meq/L ABG O2 Saturation (96.0-97.0) % ABG Base Excess (-2-2.0) Henry Test A-a Gradient mmHg O2 Delivery Device Oxygen Flow Rate FiO2 (21.00-100.00) % Sodium 140 (136-145) mEq/L Potassium 4.6 (3.5-5.1) mEq/L Chloride 104 (98-107) mEq/L Carbon Dioxide 26 (21-32) mEq/L Anion Gap 14.6 (5-15) BUN 20 H (7-18) mg/dL Creatinine 1.5 H (0.7-1.3) mg/dL Est Cr Clr Drug Dosing 42.39 mL/min Estimated GFR (MDRD) 45 (>60) mL/min BUN/Creatinine Ratio 13.3 L (14-18) Glucose 116 H (83-115) mg/dL Lactic Acid (0.4-2.0) mmol/L Calcium 9.1 (8.5-10.1) mg/dL Phosphorus (2.6-4.7) mg/dL Magnesium (1.8-2.4) mg/dl Total Bilirubin 0.3 (0.2-1.0) mg/dL AST 20 (15-37) U/L ALT 19 (16-63) U/L Alkaline Phosphatase 103 (46-116) U/L Troponin I < 0.017 (0.00-0.056) ng/mL NT-Pro-B Natriuret Pep (0-450) pg/mL Total Protein 7.7 (6.4-8.2) g/dl Albumin 3.7 (3.4-5.0) g/dl Globulin 4.0 gm/dL Albumin/Globulin Ratio 0.9 L (1-2) Mycoplasma pneumon IgM Positive H (NEGATIVE) MRSA (PCR) 11/14/18 11/15/18 11/15/18 Range/Units 22:35 02:45 06:05 WBC (4.23-9.07) K/mm3 RBC (4.63-6.08) M/mm3 Hgb (13.7-17.5) gm/L Hct (40.1-51.0) % MCV (79.0-92.2) fl MCH (25.7-32.2) pg MCHC (32.2-35.5) g/dl RDW Std Deviation (35.1-43.9) fL Plt Count (163-337) K/mm3 MPV (9.4-12.3) fl Neut % (Auto) (34.0-67.9) % Lymph % (Auto) (21.8-53.1) % [place] % (Auto) (5.3-12.2) % Eos % (Auto) (0.8-7.0) Baso % (Auto) (0.1-1.2) % Neut # (Auto) (1.78-5.38) K/mm3 Lymph # (Auto) (1.32-3.57) K/mm3 [place] # (Auto) (0.30-0.82) K/mm3 Eos # (Auto) (0.04-0.54) K/mm3 Baso # (Auto) (0.01-0.08) K/mm3 Neutrophils % (Manual) (40-60) % Band Neutrophils % (0-10) % Lymphocytes % (Manual) (20-40) % Atypical Lymphs % % Monocytes % (Manual) (2-10) % Eosinophils % (Manual) (0.8-7.0) % Basophils % (Manual) (0.2-1.2) Manual Slide Review Platelet Estimate Plt Morphology Comment RBC Morph Comment PT (9.5-12.1) SECONDS INR APTT (24-31) SECONDS Puncture Site ABG pH (7.35-7.45) ABG pCO2 (35.0-45.0) mmHg ABG pO2 (80.0-100.0) mmHg ABG HCO3 (22.0-26.0) meq/L ABG O2 Saturation (96.0-97.0) % ABG Base Excess (-2-2.0) Henry Test A-a Gradient mmHg O2 Delivery Device Oxygen Flow Rate FiO2 (21.00-100.00) % Sodium (136-145) mEq/L Potassium (3.5-5.1) mEq/L Chloride (98-107) mEq/L Carbon Dioxide (21-32) mEq/L Anion Gap (5-15) BUN (7-18) mg/dL Creatinine (0.7-1.3) mg/dL Est Cr Clr Drug Dosing mL/min Estimated GFR (MDRD) (>60) mL/min BUN/Creatinine Ratio (14-18) Glucose (83-115) mg/dL Lactic Acid 1.2 (0.4-2.0) mmol/L Calcium (8.5-10.1) mg/dL Phosphorus 2.9 (2.6-4.7) mg/dL Magnesium 1.5 L (1.8-2.4) mg/dl Total Bilirubin (0.2-1.0) mg/dL AST (15-37) U/L ALT (16-63) U/L Alkaline Phosphatase (46-116) U/L Troponin I < 0.017 (0.00-0.056) ng/mL NT-Pro-B Natriuret Pep (0-450) pg/mL Total Protein (6.4-8.2) g/dl Albumin (3.4-5.0) g/dl Globulin gm/dL Albumin/Globulin Ratio (1-2) Mycoplasma pneumon IgM (NEGATIVE) MRSA (PCR) Negative 11/15/18 11/15/18 11/15/18 Range/Units 06:08 06:08 06:08 WBC 14.71 H (4.23-9.07) K/mm3 RBC 4.36 L (4.63-6.08) M/mm3 Hgb 12.5 L (13.7-17.5) gm/L Hct 39.5 L (40.1-51.0) % MCV 90.6 (79.0-92.2) fl MCH 28.7 (25.7-32.2) pg MCHC 31.6 L (32.2-35.5) g/dl RDW Std Deviation 49.6 H (35.1-43.9) fL Plt Count 173 (163-337) K/mm3 MPV 8.5 L (9.4-12.3) fl Neut % (Auto) 82.0 H (34.0-67.9) % Lymph % (Auto) 9.4 L (21.8-53.1) % [place] % (Auto) 8.2 (5.3-12.2) % Eos % (Auto) 0 L (0.8-7.0) Baso % (Auto) 0.1 (0.1-1.2) % Neut # (Auto) 12.07 H (1.78-5.38) K/mm3 Lymph # (Auto) 1.38 (1.32-3.57) K/mm3 [place] # (Auto) 1.21 H (0.30-0.82) K/mm3 Eos # (Auto) 0.00 L (0.04-0.54) K/mm3 Baso # (Auto) 0.01 (0.01-0.08) K/mm3 Neutrophils % (Manual) (40-60) % Band Neutrophils % (0-10) % Lymphocytes % (Manual) (20-40) % Atypical Lymphs % % Monocytes % (Manual) (2-10) % Eosinophils % (Manual) (0.8-7.0) % Basophils % (Manual) (0.2-1.2) Manual Slide Review Abnormal smear Platelet Estimate Plt Morphology Comment RBC Morph Comment PT (9.5-12.1) SECONDS INR APTT (24-31) SECONDS Puncture Site ABG pH (7.35-7.45) ABG pCO2 (35.0-45.0) mmHg ABG pO2 (80.0-100.0) mmHg ABG HCO3 (22.0-26.0) meq/L ABG O2 Saturation (96.0-97.0) % ABG Base Excess (-2-2.0) Henry Test A-a Gradient mmHg O2 Delivery Device Oxygen Flow Rate FiO2 (21.00-100.00) % Sodium 139 (136-145) mEq/L Potassium 4.6 (3.5-5.1) mEq/L Chloride 102 (98-107) mEq/L Carbon Dioxide 27 (21-32) mEq/L Anion Gap 14.6 (5-15) BUN 20 H (7-18) mg/dL Creatinine 1.6 H (0.7-1.3) mg/dL Est Cr Clr Drug Dosing 39.74 mL/min Estimated GFR (MDRD) 42 (>60) mL/min BUN/Creatinine Ratio 12.5 L (14-18) Glucose 104 (83-115) mg/dL Lactic Acid (0.4-2.0) mmol/L Calcium 8.4 L (8.5-10.1) mg/dL Phosphorus (2.6-4.7) mg/dL Magnesium (1.8-2.4) mg/dl Total Bilirubin (0.2-1.0) mg/dL AST (15-37) U/L ALT (16-63) U/L Alkaline Phosphatase (46-116) U/L Troponin I (0.00-0.056) ng/mL NT-Pro-B Natriuret Pep 1736 H (0-450) pg/mL Total Protein (6.4-8.2) g/dl Albumin (3.4-5.0) g/dl Globulin gm/dL Albumin/Globulin Ratio (1-2) Mycoplasma pneumon IgM (NEGATIVE) MRSA (PCR) 11/15/18 11/15/18 Range/Units 08:07 08:15 WBC (4.23-9.07) K/mm3 RBC (4.63-6.08) M/mm3 Hgb (13.7-17.5) gm/L Hct (40.1-51.0) % MCV (79.0-92.2) fl MCH (25.7-32.2) pg MCHC (32.2-35.5) g/dl RDW Std Deviation (35.1-43.9) fL Plt Count (163-337) K/mm3 MPV (9.4-12.3) fl Neut % (Auto) (34.0-67.9) % Lymph % (Auto) (21.8-53.1) % [place] % (Auto) (5.3-12.2) % Eos % (Auto) (0.8-7.0) Baso % (Auto) (0.1-1.2) % Neut # (Auto) (1.78-5.38) K/mm3 Lymph # (Auto) (1.32-3.57) K/mm3 [place] # (Auto) (0.30-0.82) K/mm3 Eos # (Auto) (0.04-0.54) K/mm3 Baso # (Auto) (0.01-0.08) K/mm3 Neutrophils % (Manual) (40-60) % Band Neutrophils % (0-10) % Lymphocytes % (Manual) (20-40) % Atypical Lymphs % % Monocytes % (Manual) (2-10) % Eosinophils % (Manual) (0.8-7.0) % Basophils % (Manual) (0.2-1.2) Manual Slide Review Platelet Estimate Plt Morphology Comment RBC Morph Comment PT (9.5-12.1) SECONDS INR APTT (24-31) SECONDS Puncture Site Rt radial ABG pH 7.41 (7.35-7.45) ABG pCO2 36.2 (35.0-45.0) mmHg ABG pO2 56.0 L (80.0-100.0) mmHg ABG HCO3 22.5 (22.0-26.0) meq/L ABG O2 Saturation 89.9 L (96.0-97.0) % ABG Base Excess -1.2 (-2-2.0) Henry Test Positive A-a Gradient 116 mmHg O2 Delivery Device Nasal cannula Oxygen Flow Rate 3.5 FiO2 34.00 (21.00-100.00) % Sodium (136-145) mEq/L Potassium (3.5-5.1) mEq/L Chloride (98-107) mEq/L Carbon Dioxide (21-32) mEq/L Anion Gap (5-15) BUN (7-18) mg/dL Creatinine (0.7-1.3) mg/dL Est Cr Clr Drug Dosing mL/min Estimated GFR (MDRD) (>60) mL/min BUN/Creatinine Ratio (14-18) Glucose (83-115) mg/dL Lactic Acid 1.3 (0.4-2.0) mmol/L Calcium (8.5-10.1) mg/dL Phosphorus (2.6-4.7) mg/dL Magnesium (1.8-2.4) mg/dl Total Bilirubin (0.2-1.0) mg/dL AST (15-37) U/L ALT (16-63) U/L Alkaline Phosphatase (46-116) U/L Troponin I (0.00-0.056) ng/mL NT-Pro-B Natriuret Pep (0-450) pg/mL Total Protein (6.4-8.2) g/dl Albumin (3.4-5.0) g/dl Globulin gm/dL Albumin/Globulin Ratio (1-2) Mycoplasma pneumon IgM (NEGATIVE) MRSA (PCR) Result Diagrams: 11/15/18 06:08 11/15/18 06:08 Alfonso Results Last 24 hrs: Microbiology 11/14/18 22:53 Influenza Type A Antigen Screen - Final Nasal, Unspecified NEGATIVE INFLUENZA A VIRUS AG Influenza Type B Antigen Screen - Final NEGATIVE INFLUENZA B VIRUS AG Imaging Impressions Last 24 hrs: Chest x-ray: Poor quality with poor inspiration. Possible right-sided infiltrate. EKG INTERPRETATION EKG Date: 11/15/18 Rhythm: A-Fib Rate (Beats/Min): 97 [place]: Normal P-Wave: Absent QRS: RBBB EKG Interpretation Comments: LAFB. No changes per ER doctor. - Problem List (1) Acute respiratory failure with hypoxia SNOMED Code(s): 18210946, 871320713 ICD Code: J96.01 - ACUTE RESPIRATORY FAILURE WITH HYPOXIA Status: Acute Current Visit: Yes (2) Sepsis SNOMED Code(s): 29514706 ICD Code: A41.9 - SEPSIS, UNSPECIFIED ORGANISM Status: Acute Current Visit: Yes (3) Aspiration into lower respiratory tract SNOMED Code(s): 638447454 ICD Code: T17.800A - UNSP FOREIGN BODY IN OTH PRT RESP TRACT CAUSING ASPHYX, INIT Status: Acute Current Visit: Yes (4) Pneumonia SNOMED Code(s): 059911557 ICD Code: J18.9 - PNEUMONIA, UNSPECIFIED ORGANISM Status: Acute Priority : High Current Visit: Yes Qualifiers: Pneumonia type: aspiration pneumonia Aspiration pneumonia type: due to vomit Laterality: unspecified laterality Lung location: unspecified part of lung Qualified Code(s): J69.0 - Pneumonitis due to inhalation of food and vomit (5) Atrial fibrillation and flutter SNOMED Code(s): 072376087 ICD Code: I48.91 - UNSPECIFIED ATRIAL FIBRILLATION; I48.92 - UNSPECIFIED ATRIAL FLUTTER Status: Acute Current Visit: No (6) Congestive heart failure with left ventricular diastolic dysfunction SNOMED Code(s): 22586253, 250326905 ICD Code: I50.30 - UNSPECIFIED DIASTOLIC (CONGESTIVE) HEART FAILURE Status : Acute Priority: High Current Visit: No Qualifiers: Congestive heart failure chronicity: acute on chronic Qualified Code(s): I50.33 - Acute on chronic diastolic (congestive) heart failure (7) Hypomagnesemia SNOMED Code(s): 619401708 ICD Code: E83.42 - HYPOMAGNESEMIA Status: Acute Priority: High Current Visit: No Problem List Initiated/Reviewed/Updated: Yes Orders Last 24hrs: Active Orders 24 hr Category Date Time Status Patient Status [ADT] Routine ADT 11/15/18 01:20 Active Bedrest [RC] ASDIRECTED Care 11/15/18 02:37 Active EKG Documentation Completion [RC] STAT Care 11/14/18 22:09 Active Jerome Catheter Insertion [Insert Urinary Catheter] [OM. Care 11/15/18 08:45 Ordered PC] Q24H RT Aerosol Therapy [RC] ASDIRECTED Care 11/14/18 22:20 Active Urinary Catheter Assessment [RC] ASDIRECTED Care 11/15/18 08:36 Active NPO [Nothing Per Oral Diet] [DIET] Diet 11/15/18 Lunch Ordered CXR [Chest 1V Frontal] [CR] AM Exams 11/17/18 05:11 Ordered Chest 1V Frontal [CR] Stat Exams 11/14/18 22:09 Taken Echo Comp wo Cont [US] Routine Exams 11/15/18 08:15 Ordered CBC WITH AUTO DIFF [HEME] AM Lab 11/16/18 05:11 Ordered CMP [COMPREHENSIVE METABOLIC PN,CMP] [CHEM] AM Lab 11/17/18 05:11 Ordered CULTURE BLOOD [BC] Stat Lab 11/14/18 22:25 Received CULTURE BLOOD [BC] Stat Lab 11/14/18 22:35 Received CULTURE SPUTUM + SMEAR [RM] Urgent Lab 11/15/18 07:28 Ordered INR,PT,PROTHROMBIN TIME [COAG] AM Lab 11/16/18 05:11 Ordered INR,PT,PROTHROMBIN TIME [COAG] AM Lab 11/17/18 05:11 Ordered LACTIC ACID [CHEM] Q6H Lab 11/15/18 12:00 Ordered LACTIC ACID [CHEM] Q6H Lab 11/15/18 18:00 Ordered LACTIC ACID [CHEM] Q6H Lab 11/16/18 00:00 Ordered LEGIONELLA ANTIGEN [MREF] Routine Lab 11/15/18 08:03 Ordered MAGNESIUM [CHEM] AM Lab 11/17/18 05:11 Ordered PHOSPHORUS [CHEM] AM Lab 11/17/18 05:11 Ordered PRO B-TYPE NATRIUR PEPT,BNPPRO [CHEM] Routine Lab 11/16/18 05:00 Ordered PTT,PARTIAL THROMBOPLSTIN TIME [COAG] AM Lab 11/17/18 05:11 Ordered STREP PNEUMONIAE ANTIGEN [MREF] Routine Lab 11/15/18 08:04 Ordered TROPONIN I [CHEM] AM Lab 11/17/18 05:11 Ordered TSH [CHEM] AM Lab 11/17/18 05:11 Ordered Acetaminophen [Tylenol] Med 11/15/18 02:12 Active 650 mg PO Q4H PRN Albuterol/Ipratropium [DuoNeb 3.0-0.5 MG/3 ML] Med 11/15/18 08:23 Active 3 ml NEB Q6HRRT PRN Ampicillin/Sulbactam Na [Unasyn] 3 gm Med 11/15/18 06:00 Active Sodium Chloride 0.9% [Normal Saline] 100 ml IV Q6H Flecainide Med 11/15/18 09:00 Ordered 100 mg PO BID Levofloxacin/Dextrose 5%-Water [Levaquin in D5W 750 MG/ Med 11/15/18 03:00 Active 150 ML] 750 mg Premix Bag 1 bag IV Q48H Pantoprazole [ProTONIX] Med 11/15/18 09:00 Ordered 40 mg PO DAILY Pravastatin Med 11/15/18 09:00 Ordered 40 mg PO DAILY Sodium Chloride 0.9% [Normal Saline] 1,000 ml Med 11/15/18 09:30 Active IV ASDIRECTED guaiFENesin [Mucinex] Med 11/15/18 09:00 Ordered 600 mg PO BID Blood Culture x2 Reflex Set [OM.PC] Stat Oth 11/14/18 22:09 Ordered Code Status [Resuscitation Status] Routine Resus Stat 11/15/18 02:08 Ordered Medication Orders Acetaminophen (Tylenol) 650 mg PO Q4H PRN PRN Reason: Fever Albuterol/Ipratropium (Duoneb 3.0-0.5 Mg/3 Ml) 3 ml NEB Q6HRRT PRN PRN Reason: Shortness of Breath Last Admin: 11/15/18 09:17 Dose: 3 ml Flecainide Acetate (Tambocor) 100 mg PO BID PENDING SALE TO [facility] Guaifenesin (Mucinex) 600 mg PO BID PENDING SALE TO [facility] Levofloxacin/Dextrose 750 mg/ (Premix) 150 mls @ 100 mls/hr IV Q48H PENDING SALE TO [facility] Last Admin: 11/15/18 02:25 Dose: 100 mls/hr Ampicillin Sodium/Sulbactam (Sodium 3 gm/ Sodium Chloride) 100 mls @ 200 mls/ hr IV Q6H PENDING SALE TO [facility] Last Admin: 11/15/18 05:43 Dose: 200 mls/hr Sodium Chloride (Normal Saline) 1,000 mls @ 25 mls/hr IV ASDIRECTED PENDING SALE TO [facility] Pantoprazole Sodium (Protonix) 40 mg PO DAILY@0700 PENDING SALE TO [facility] Simvastatin (Zocor) 20 mg PO BEDTIME PENDING SALE TO [facility] Assessment/Plan Comment:: 1. acute respiratory failure with hypoxia - Respiratory failure secondary to pneumonia. - Supplemental oxygen to maintain pulse ox greater than 92%. - Antibiotics - Unisyn, Levaquin - Respiratory toliet - Pt Is DNR/DNI 2. Sepsis - Fluid resuscitation in ER and on floor - Antibiotics, blood cultures, serial lactic acid - Admit to ICU - Repeat CBC and CMP in the morning. 3. Pneumonia, aspiration - Chest x-ray was poor quality. Possible right-sided infiltrate, but radiology was read as normal. - UniSyn, Levaquin - Positive mycoplasma IgM is likely a significant pathogen. This IgM is likely reflective of previous recent infection. Patient is on Levaquin which will cover mycoplasma. - Patient will be initially placed nothing by mouth. Recent video swallow study showed aspiration with residual. We will get previous diet and advance to the previously recommended diet. 4. Congestive heart failure - BNP 1736 - Follow closely. - Strict I's and O's. Urinary catheter and daily weights. 5. Hypomagnesemia - Replaced with 1 g magnesium IV. - Repeat magnesium level in the morning. 6. Atrial fibrillation - Patient's INR was 2.1. Because he is nothing by mouth and on antibiotics we will hold his warfarin today and recheck an INR in the morning.
[2018-11-15] MEDS: Flecainide 50 MG Tab PO SCH ×2 (09:48→20:14)
[2018-11-15] MEDS: guaiFENesin 600 MG Tab.ER PO SCH ×2 (09:48→20:14)
[2018-11-15] MEDS: Pantoprazole 40 MG Tab.CR PO SCH (09:48)
--- NOTE | 2018-11-15 10:19 | CR ---
Chest: Portable view of the chest was obtained. Comparison: Prior chest x-ray of 09/16/18. Heart size appears within normal limits for portable technique. Tortuous thoracic aorta is seen. Widening of the mediastinum is seen felt to be technique related. Lung markings are mildly increased which appear chronic. No acute parenchymal change is definitely appreciated. Bony structures are grossly intact. Impression: 1. Nothing acute is definitely seen on portable chest x-ray. Diagnostic code #2
[2018-11-15] MEDS: Simvastatin 20 MG Tab PO SCH (20:14)
[2018-11-16] MEDS: Acetaminophen 325 MG Tab PO PRN ×5 (00:45→21:20)
[2018-11-16] MEDS: Ampicillin/Sulbactam Na 3 GM in Sodium Chloride 0.9% 100 ML IV SCH ×3 (06:19→17:00)
[2018-11-16] MEDS: Pantoprazole 40 MG Tab.CR PO SCH (06:21)
[2018-11-16] MEDS: Albuterol/Ipratropium 3.0-0.5 MG/3 ML Neb Soln NEB PRN ×3 (08:35→21:27)
[2018-11-16] MEDS: Flecainide 50 MG Tab PO SCH ×2 (08:59→20:54)
[2018-11-16] MEDS: guaiFENesin 600 MG Tab.ER PO SCH ×2 (09:00→20:53)
--- NOTE | 2018-11-16 09:09 | CR ---
Chest: Portable view of the chest was obtained. Comparison: Prior chest x-ray of 11/14/18. Possible increased interstitial change noted from prior exam which is superimposed upon chronic increased lung markings. No alveolar type densities are seen. Heart size and mediastinum are normal. Bony structures are unremarkable. Impression: 1. Possible increased interstitial change from prior exam superimposed upon chronic change. Findings raise the possibility of fluid overload or mild pulmonary vascular congestion. Diagnostic code #3
--- NOTE | 2018-11-16 09:45 | PCM.PN ---
- General Info Date of Service: 11/16/18 Admission Dx/Problem (Free Text): Admission Diagnosis/Problem Admission Diagnosis/Problem acute respiratory failure with hypoxia Subjective Update: Admission details Mr. Warner is an 83-year-old male resident at [facility] with known history of aspiration pneumonia, COPD, CHF, atrial fibrillation, and multiple chronic medical problems, was brought in via EMS, and was admitted through the emergency room secondary to worsening shortness of breath, cough, and respiratory failure. Last night patient choked after drinking soda and progressively worsened. Patient is a poor historian. In the ER patient was found to be hypoxic with increased respiratory rate and effort. Initially his BP 160/59, WBC of 12.5. In the ER he was given IV bolus of 500 mg LR, antibiotics, and placed on O2. Patient was then admitted to the hospital. Patient was seen in August and September for aspiration pneumonia and on both occasions his Mycoplasma IgM was positive. Patient was treated for the Mycoplasma in September with 5 days of azithromycin. Patient is again has a positive IgM for Mycoplasma. Patient has a know history of aspiration with a swallow study done last month showing aspiration with residual. He has been admitted several times over the last year for similar episodes. Echo done 07/2017 showed an EF of 40% November 16, 2018 Patient did well over the evening and is much more alert. He was conversant and not confused. Patient has had a decreased need of oxygen, decrease in respiratory effort and rate, with increasing and his pulse ox. Echocardiogram done on yesterday, November 15, 2018, demonstrated left ventricular ejection fraction of 60-65% with visualized wall segments showing normal contractility, but not all gonzalez were well seen. Aortic valve and tricuspid is structurally normal, mild mitral valve regurgitation, trace tricuspid valve regurgitation. Patient is complaining of right groin pain worse with flexion and left shoulder pain. Patient has had similar pain in the past but not this severe. - Patient Data Vitals - Most Recent: Last Vital Signs Temp 98.6 F 11/16/18 08:00 Pulse 76 11/16/18 03:00 Resp 23 H 11/16/18 08:00 BP 119/57 L 11/16/18 08:00 Pulse Ox 96 11/16/18 08:49 Weight - Most Recent: 203 lb I&O - Last 24 Hours: Intake & Output 11/15/18 11/16/18 11/16/18 22:59 06:59 14:59 Intake Total 342 1332 Output Total 285 480 130 Balance 57 857 -130 Lab Results Last 24 Hours: Laboratory Results - last 24 hr 11/15/18 11/15/18 11/15/18 Range/Units 12:09 18:22 21:03 WBC (4.23-9.07) K/mm3 RBC (4.63-6.08) M/mm3 Hgb (13.7-17.5) gm/L Hct (40.1-51.0) % MCV (79.0-92.2) fl MCH (25.7-32.2) pg MCHC (32.2-35.5) g/dl RDW Std Deviation (35.1-43.9) fL Plt Count (163-337) K/mm3 MPV (9.4-12.3) fl Neut % (Auto) (34.0-67.9) % Lymph % (Auto) (21.8-53.1) % Bent % (Auto) (5.3-12.2) % Eos % (Auto) (0.8-7.0) Baso % (Auto) (0.1-1.2) % Neut # (Auto) (1.78-5.38) K/mm3 Lymph # (Auto) (1.32-3.57) K/mm3 Bent # (Auto) (0.30-0.82) K/mm3 Eos # (Auto) (0.04-0.54) K/mm3 Baso # (Auto) (0.01-0.08) K/mm3 Manual Slide Review PT (9.5-12.1) SECONDS INR APTT (24-31) SECONDS Puncture Site ABG pH (7.35-7.45) ABG pCO2 (35.0-45.0) mmHg ABG pO2 (80.0-100.0) mmHg ABG HCO3 (22.0-26.0) meq/L ABG O2 Saturation (96.0-97.0) % ABG Base Excess (-2-2.0) Henry Test O2 Delivery Device Oxygen Flow Rate FiO2 (21.00-100.00) % Sodium (136-145) mEq/L Potassium (3.5-5.1) mEq/L Chloride (98-107) mEq/L Carbon Dioxide (21-32) mEq/L Anion Gap (5-15) BUN (7-18) mg/dL Creatinine (0.7-1.3) mg/dL Est Cr Clr Drug Dosing mL/min Estimated GFR (MDRD) (>60) mL/min BUN/Creatinine Ratio (14-18) Glucose (83-115) mg/dL POC Glucose 110 (83-110) mg/dL Lactic Acid 1.5 1.3 (0.4-2.0) mmol/L Calcium (8.5-10.1) mg/dL Phosphorus (2.6-4.7) mg/dL Magnesium (1.8-2.4) mg/dl Total Bilirubin (0.2-1.0) mg/dL AST (15-37) U/L ALT (16-63) U/L Alkaline Phosphatase (46-116) U/L Troponin I (0.00-0.056) ng/mL NT-Pro-B Natriuret Pep (0-450) pg/mL Total Protein (6.4-8.2) g/dl Albumin (3.4-5.0) g/dl Globulin gm/dL Albumin/Globulin Ratio (1-2) TSH 3rd Generation (0.358-3.74) uIU/mL 11/16/18 11/16/18 11/16/18 Range/Units 00:16 05:30 05:30 WBC 9.07 (4.23-9.07) K/mm3 RBC 3.73 L (4.63-6.08) M/mm3 Hgb 10.7 L (13.7-17.5) gm/L Hct 34.0 L (40.1-51.0) % MCV 91.2 (79.0-92.2) fl MCH 28.7 (25.7-32.2) pg MCHC 31.5 L (32.2-35.5) g/dl RDW Std Deviation 50.9 H (35.1-43.9) fL Plt Count 154 L (163-337) K/mm3 MPV 8.6 L (9.4-12.3) fl Neut % (Auto) 80.2 H (34.0-67.9) % Lymph % (Auto) 8.8 L (21.8-53.1) % Bent % (Auto) 10.4 (5.3-12.2) % Eos % (Auto) 0.2 L (0.8-7.0) Baso % (Auto) 0.1 (0.1-1.2) % Neut # (Auto) 7.27 H (1.78-5.38) K/mm3 Lymph # (Auto) 0.80 L (1.32-3.57) K/mm3 Bent # (Auto) 0.94 H (0.30-0.82) K/mm3 Eos # (Auto) 0.02 L (0.04-0.54) K/mm3 Baso # (Auto) 0.01 (0.01-0.08) K/mm3 Manual Slide Review Abnormal smear PT (9.5-12.1) SECONDS INR APTT (24-31) SECONDS Puncture Site ABG pH (7.35-7.45) ABG pCO2 (35.0-45.0) mmHg ABG pO2 (80.0-100.0) mmHg ABG HCO3 (22.0-26.0) meq/L ABG O2 Saturation (96.0-97.0) % ABG Base Excess (-2-2.0) Henry Test O2 Delivery Device Oxygen Flow Rate FiO2 (21.00-100.00) % Sodium (136-145) mEq/L Potassium (3.5-5.1) mEq/L Chloride (98-107) mEq/L Carbon Dioxide (21-32) mEq/L Anion Gap (5-15) BUN (7-18) mg/dL Creatinine (0.7-1.3) mg/dL Est Cr Clr Drug Dosing mL/min Estimated GFR (MDRD) (>60) mL/min BUN/Creatinine Ratio (14-18) Glucose (83-115) mg/dL POC Glucose (83-110) mg/dL Lactic Acid 1.2 (0.4-2.0) mmol/L Calcium (8.5-10.1) mg/dL Phosphorus (2.6-4.7) mg/dL Magnesium (1.8-2.4) mg/dl Total Bilirubin (0.2-1.0) mg/dL AST (15-37) U/L ALT (16-63) U/L Alkaline Phosphatase (46-116) U/L Troponin I (0.00-0.056) ng/mL NT-Pro-B Natriuret Pep 1833 H (0-450) pg/mL Total Protein (6.4-8.2) g/dl Albumin (3.4-5.0) g/dl Globulin gm/dL Albumin/Globulin Ratio (1-2) TSH 3rd Generation (0.358-3.74) uIU/mL 11/16/18 11/16/18 11/16/18 Range/Units 05:30 05:30 05:30 WBC (4.23-9.07) K/mm3 RBC (4.63-6.08) M/mm3 Hgb (13.7-17.5) gm/L Hct (40.1-51.0) % MCV (79.0-92.2) fl MCH (25.7-32.2) pg MCHC (32.2-35.5) g/dl RDW Std Deviation (35.1-43.9) fL Plt Count (163-337) K/mm3 MPV (9.4-12.3) fl Neut % (Auto) (34.0-67.9) % Lymph % (Auto) (21.8-53.1) % Bent % (Auto) (5.3-12.2) % Eos % (Auto) (0.8-7.0) Baso % (Auto) (0.1-1.2) % Neut # (Auto) (1.78-5.38) K/mm3 Lymph # (Auto) (1.32-3.57) K/mm3 Bent # (Auto) (0.30-0.82) K/mm3 Eos # (Auto) (0.04-0.54) K/mm3 Baso # (Auto) (0.01-0.08) K/mm3 Manual Slide Review PT 26.5 H (9.5-12.1) SECONDS INR 2.47 APTT 58 H (24-31) SECONDS Puncture Site ABG pH (7.35-7.45) ABG pCO2 (35.0-45.0) mmHg ABG pO2 (80.0-100.0) mmHg ABG HCO3 (22.0-26.0) meq/L ABG O2 Saturation (96.0-97.0) % ABG Base Excess (-2-2.0) Henry Test O2 Delivery Device Oxygen Flow Rate FiO2 (21.00-100.00) % Sodium 138 (136-145) mEq/L Potassium 4.3 (3.5-5.1) mEq/L Chloride 104 (98-107) mEq/L Carbon Dioxide 27 (21-32) mEq/L Anion Gap 11.3 (5-15) BUN 25 H (7-18) mg/dL Creatinine 1.7 H (0.7-1.3) mg/dL Est Cr Clr Drug Dosing 37.46 mL/min Estimated GFR (MDRD) 39 (>60) mL/min BUN/Creatinine Ratio 14.7 (14-18) Glucose 99 (83-115) mg/dL POC Glucose (83-110) mg/dL Lactic Acid (0.4-2.0) mmol/L Calcium 8.3 L (8.5-10.1) mg/dL Phosphorus 2.9 (2.6-4.7) mg/dL Magnesium 1.8 (1.8-2.4) mg/dl Total Bilirubin 0.5 (0.2-1.0) mg/dL AST 16 (15-37) U/L ALT 17 (16-63) U/L Alkaline Phosphatase 61 (46-116) U/L Troponin I (0.00-0.056) ng/mL NT-Pro-B Natriuret Pep (0-450) pg/mL Total Protein 6.1 L (6.4-8.2) g/dl Albumin 2.5 L (3.4-5.0) g/dl Globulin 3.6 gm/dL Albumin/Globulin Ratio 0.7 L (1-2) TSH 3rd Generation 1.757 (0.358-3.74) uIU/mL 11/16/18 11/16/18 Range/Units 05:30 07:26 WBC (4.23-9.07) K/mm3 RBC (4.63-6.08) M/mm3 Hgb (13.7-17.5) gm/L Hct (40.1-51.0) % MCV (79.0-92.2) fl MCH (25.7-32.2) pg MCHC (32.2-35.5) g/dl RDW Std Deviation (35.1-43.9) fL Plt Count (163-337) K/mm3 MPV (9.4-12.3) fl Neut % (Auto) (34.0-67.9) % Lymph % (Auto) (21.8-53.1) % Bent % (Auto) (5.3-12.2) % Eos % (Auto) (0.8-7.0) Baso % (Auto) (0.1-1.2) % Neut # (Auto) (1.78-5.38) K/mm3 Lymph # (Auto) (1.32-3.57) K/mm3 Bent # (Auto) (0.30-0.82) K/mm3 Eos # (Auto) (0.04-0.54) K/mm3 Baso # (Auto) (0.01-0.08) K/mm3 Manual Slide Review PT (9.5-12.1) SECONDS INR APTT (24-31) SECONDS Puncture Site Lt radial ABG pH 7.39 (7.35-7.45) ABG pCO2 40.7 (35.0-45.0) mmHg ABG pO2 66.0 L (80.0-100.0) mmHg ABG HCO3 24.2 (22.0-26.0) meq/L ABG O2 Saturation 93.6 L (96.0-97.0) % ABG Base Excess -0.2 (-2-2.0) Henry Test Positive O2 Delivery Device Nasal cannula Oxygen Flow Rate 3.0 FiO2 0.00 L (21.00-100.00) % Sodium (136-145) mEq/L Potassium (3.5-5.1) mEq/L Chloride (98-107) mEq/L Carbon Dioxide (21-32) mEq/L Anion Gap (5-15) BUN (7-18) mg/dL Creatinine (0.7-1.3) mg/dL Est Cr Clr Drug Dosing mL/min Estimated GFR (MDRD) (>60) mL/min BUN/Creatinine Ratio (14-18) Glucose (83-115) mg/dL POC Glucose (83-110) mg/dL Lactic Acid (0.4-2.0) mmol/L Calcium (8.5-10.1) mg/dL Phosphorus (2.6-4.7) mg/dL Magnesium (1.8-2.4) mg/dl Total Bilirubin (0.2-1.0) mg/dL AST (15-37) U/L ALT (16-63) U/L Alkaline Phosphatase (46-116) U/L Troponin I < 0.017 (0.00-0.056) ng/mL NT-Pro-B Natriuret Pep (0-450) pg/mL Total Protein (6.4-8.2) g/dl Albumin (3.4-5.0) g/dl Globulin gm/dL Albumin/Globulin Ratio (1-2) TSH 3rd Generation (0.358-3.74) uIU/mL Alfonso Results Last 24 Hours: Microbiology 11/15/18 09:10 Gram Stain - Final Sputum - Expectorated Sputum Culture - Preliminary 11/14/18 22:35 Aerobic Blood Culture - Preliminary Blood - Venous NO GROWTH AFTER 1 DAY Anaerobic Blood Culture - Preliminary NO GROWTH AFTER 1 DAY 11/14/18 22:25 Aerobic Blood Culture - Preliminary Blood NO GROWTH AFTER 1 DAY Anaerobic Blood Culture - Preliminary NO GROWTH AFTER 1 DAY 11/15/18 09:45 Legionella Urinary Antigen - Final Urine 11/15/18 09:45 Streptococcus pneumoniae Antigen (M - Final Urine Med Orders - Current: Current Medications Acetaminophen (Tylenol) 650 mg PO Q4H PRN PRN Reason: Fever Last Admin: 11/16/18 04:25 Dose: 650 mg Albuterol/Ipratropium (Duoneb 3.0-0.5 Mg/3 Ml) 3 ml NEB Q6HRRT PRN PRN Reason: Shortness of Breath Last Admin: 11/16/18 08:35 Dose: 3 ml Flecainide Acetate (Tambocor) 100 mg PO BID [facility] Last Admin: 11/16/18 08:59 Dose: 100 mg Guaifenesin (Mucinex) 600 mg PO BID [facility] Last Admin: 11/16/18 09:00 Dose: 600 mg Levofloxacin/Dextrose 750 mg/ (Premix) 150 mls @ 100 mls/hr IV Q48H [facility] Last Admin: 11/15/18 02:25 Dose: 100 mls/hr Ampicillin Sodium/Sulbactam (Sodium 3 gm/ Sodium Chloride) 100 mls @ 200 mls/ hr IV Q6H [facility] Last Admin: 11/16/18 06:19 Dose: 200 mls/hr Sodium Chloride (Normal Saline) 1,000 mls @ 25 mls/hr IV ASDIRECTED [facility] Last Admin: 11/15/18 12:07 Dose: 25 mls/hr Metoprolol Tartrate (Lopressor) 12.5 mg PO Q12H [facility] Pantoprazole Sodium (Protonix) 40 mg PO DAILY@0700 [facility] Last Admin: 11/16/18 06:21 Dose: 40 mg Simvastatin (Zocor) 20 mg PO BEDTIME [facility] Last Admin: 11/15/18 20:14 Dose: 20 mg Discontinued Medications Albuterol/Ipratropium (Duoneb 3.0-0.5 Mg/3 Ml) 3 ml NEB ONETIME ONE Stop: 11/14/18 22:21 Last Admin: 11/14/18 22:41 Dose: 3 ml Albuterol/Ipratropium (Duoneb 3.0-0.5 Mg/3 Ml) 3 ml NEB Q4HRRT [facility] Last Admin: 11/15/18 05:29 Dose: 3 ml Lactated Ringer's (Ringers, Lactated) 500 mls @ 999 mls/hr IV .BOLUS ONE Stop: 11/14/18 22:42 Last Admin: 11/14/18 22:17 Dose: 999 mls/hr Lactated Ringer's (Ringers, Lactated) 1,000 mls @ 125 mls/hr IV ASDIRECTED [facility] Ampicillin Sodium/Sulbactam (Sodium 3 gm/ Sodium Chloride) 100 mls @ 200 mls/ hr IV ONETIME ONE Stop: 11/15/18 00:44 Last Admin: 11/15/18 00:17 Dose: 200 mls/hr Sodium Chloride (Normal Saline) Confirm Administered Dose 100 mls @ as directed .ROUTE .STK-MED ONE Stop: 11/15/18 00:06 Last Admin: 11/15/18 00:33 Dose: Not Given Sodium Chloride (Normal Saline) 1,000 mls @ 50 mls/hr IV ASDIRECTED [facility] Last Admin: 11/15/18 02:21 Dose: 50 mls/hr Sodium Chloride (Normal Saline) 500 mls @ 999 mls/hr IV ONETIME ONE Stop: 11/15/18 03:40 Last Admin: 11/15/18 03:26 Dose: Not Given Sodium Chloride (Normal Saline) 1,000 mls @ 125 mls/hr IV ASDIRECTED ANIKA Magnesium Sulfate/Dextrose 1 (gm/ Premix) 100 mls @ 100 mls/hr IV ONETIME ONE Stop: 11/15/18 11:24 Last Admin: 11/15/18 11:07 Dose: 100 mls/hr - Exam Quality Assessment: Supplemental Oxygen General: Alert, Oriented, Cooperative, Mild Distress HEENT: Mucous Membr. Moist/[place] Neck: Supple Lungs: Crackles (Right lower and middle lobe), Rhonchi (Right lower middle lobe) , Wheezing (Throughout both lung zavala) Cardiovascular: No Murmurs, Irregular Rhythm GI/Abdominal Exam: Normal Bowel Sounds, Soft, Non-Tender, No Distention Back Exam: Normal Inspection Extremities: Pedal Edema (1+ bilateral pitting edema), Other (Pain with flexion and internal rotation of the right hip. Pain with left shoulder abduction.) - Problem List & Annotations (1) Acute respiratory failure with hypoxia SNOMED Code(s): 06929172, 005568846 Code(s): J96.01 - ACUTE RESPIRATORY FAILURE WITH HYPOXIA Status: Acute Current Visit: Yes (2) Sepsis SNOMED Code(s): 83933974 Code(s): A41.9 - SEPSIS, UNSPECIFIED ORGANISM Status: Acute Current Visit : Yes (3) Aspiration into lower respiratory tract SNOMED Code(s): 566848153 Code(s): T17.800A - UNSP FOREIGN BODY IN OTH PRT RESP TRACT CAUSING ASPHYX, INIT Status: Acute Current Visit: Yes (4) Pneumonia SNOMED Code(s): 249787237 Code(s): J18.9 - PNEUMONIA, UNSPECIFIED ORGANISM Status: Acute Priority: High Current Visit: Yes Qualifiers: Pneumonia type: aspiration pneumonia Aspiration pneumonia type: due to vomit Laterality: unspecified laterality Lung location: unspecified part of lung Qualified Code(s): J69.0 - Pneumonitis due to inhalation of food and vomit (5) Atrial fibrillation and flutter SNOMED Code(s): 711869747 Code(s): I48.91 - UNSPECIFIED ATRIAL FIBRILLATION; I48.92 - UNSPECIFIED ATRIAL FLUTTER Status: Acute Current Visit: No (6) Congestive heart failure with left ventricular diastolic dysfunction SNOMED Code(s): 30684113, 614220719 Code(s): I50.30 - UNSPECIFIED DIASTOLIC (CONGESTIVE) HEART FAILURE Status: Acute Priority: High Current Visit: No Qualifiers: Congestive heart failure chronicity: acute on chronic Qualified Code(s): I50.33 - Acute on chronic diastolic (congestive) heart failure (7) Hypomagnesemia SNOMED Code(s): 209416684 Code(s): E83.42 - HYPOMAGNESEMIA Status: Acute Priority: High Current Visit: No - Problem List Review Problem List Initiated/Reviewed/Updated: Yes - My Orders Last 24 Hours: My Active Orders 11/15/18 08:45 Jerome Catheter Insertion [Insert Urinary Catheter] [OM.PC] Q24H 11/15/18 09:00 Flecainide [Tambocor] 100 mg PO BID Pantoprazole [ProTONIX] 40 mg PO DAILY@0700 guaiFENesin [Mucinex] 600 mg PO BID 11/15/18 09:10 CULTURE SPUTUM + SMEAR [RM] Urgent 11/15/18 09:30 Sodium Chloride 0.9% [Normal Saline] 1,000 ml IV ASDIRECTED 11/15/18 10:37 Incentive Spirometry [RT Incentive Spirometry] [RC] ASDIRECTED 11/15/18 14:43 Up to Chair [RC] ASDIRECTED 11/15/18 15:00 Chest Physiotherapy [RT Chest Physiotherapy] [RC] Q6HR 11/15/18 21:00 Simvastatin [Zocor] 20 mg PO BEDTIME 11/15/18 Lunch NPO [Nothing Per Oral Diet] [DIET] 11/16/18 09:20 Dynamic Pharyngeal/Speech Eval [CR] Routine 11/16/18 09:23 Consult to Physical Therapy [PT Evaluation and Treatment] [CONS] Routine 11/16/18 09:30 Metoprolol Tartrate [Lopressor] 12.5 mg PO Q12H 11/17/18 05:11 CXR [Chest 1V Frontal] [CR] AM Chest 1V Frontal [CR] AM BASIC METABOLIC PANEL,BMP [CHEM] AM CBC WITH AUTO DIFF [HEME] AM INR,PT,PROTHROMBIN TIME [COAG] AM INR,PT,PROTHROMBIN TIME [COAG] AM MAGNESIUM [CHEM] AM PHOSPHORUS [CHEM] AM PTT,PARTIAL THROMBOPLSTIN TIME [COAG] AM TROPONIN I [CHEM] AM - Plan Plan:: 1. acute respiratory failure with hypoxia - Respiratory failure secondary to pneumonia. - Supplemental oxygen to maintain pulse ox greater than 92%. Oxygenation, work of breathing, and respiratory rate has improved. - Continue Antibiotics - Unisyn, Levaquin - Respiratory toliet - Pt Is DNR/DNI 2. Sepsis - Fluid resuscitation in ER and on floor - Antibiotics, blood cultures, serial lactic acid. Lactate normalized. Hemodynamically stable. - Continue same level of care. - Repeat CBC and BMP in the morning. 3. Pneumonia, aspiration - Chest x-ray Today demonstrated slight increase vasculature. - UniSyn, Levaquin - Positive mycoplasma IgM is likely a significant pathogen. This IgM is likely reflective of previous recent infection. Patient is on Levaquin which will cover mycoplasma. - obtain speech evaluation for evaluation of diet and proceed with diet consistency as recommended by speech therapy. 4. Congestive heart failure - BNP not much changed. - Restart metoprolol at home dose. - Will consider diuresis and evaluate over the next 24 hours. - Strict I's and O's. Urinary catheter and daily weights. 5. Hypomagnesemia - Resolved after 1 g of magnesium IV. will repeat magnesium level tomorrow. 6. Atrial fibrillation - Patient's INR increased 2.5 continue monitoring in the morning. Hold his warfarin today and recheck an INR in the morning. 7. Right hip and left shoulder pain -Pain is likely osteoarthritis worsened by decrease in activity. -Physical therapy to evaluate Involve physical therapy for ambulation and conditioning. VTE prophylaxis-INR 2.5
[2018-11-16] MEDS: Metoprolol Tartrate 25 MG Tab PO SCH ×2 (10:37→20:55)
[2018-11-16] MEDS: Simvastatin 20 MG Tab PO SCH (20:55)
[2018-11-17] MEDS: Ampicillin/Sulbactam Na 3 GM in Sodium Chloride 0.9% 100 ML IV SCH ×2 (01:27→06:47)
[2018-11-17] MEDS: Levofloxacin/Dextrose 5%-Water 750 MG in Premix Bag 1 BAG IV SCH (01:59)
[2018-11-17] MEDS: Pantoprazole 40 MG Tab.CR PO SCH (06:47)
[2018-11-17] MEDS: Albuterol/Ipratropium 3.0-0.5 MG/3 ML Neb Soln NEB PRN ×3 (08:58→20:19)
--- NOTE | 2018-11-17 09:26 | CR ---
Chest: Portable view of the chest was obtained. Comparison: Prior chest x-ray of 11/17/18. Heart size is normal. Slight tortuosity of the thoracic aorta is seen. Lung markings are increased which appears slightly improved from previous exam. Current findings are felt to be near baseline. No acute parenchymal change is otherwise seen. Bony structures are grossly intact. Impression: 1. Improved interstitial change from prior exam. Current findings are close to baseline. Diagnostic code #2
[2018-11-17] MEDS: Flecainide 50 MG Tab PO SCH ×2 (10:04→20:57)
[2018-11-17] MEDS: guaiFENesin 600 MG Tab.ER PO SCH ×2 (10:04→20:57)
[2018-11-17] MEDS: Metoprolol Tartrate 25 MG Tab PO SCH ×2 (10:04→20:58)
--- NOTE | 2018-11-17 10:32 | PCM.PN ---
- General Info Date of Service: 11/17/18 Admission Dx/Problem (Free Text): Admission Diagnosis/Problem Admission Diagnosis/Problem acute respiratory failure with hypoxia Subjective Update: Admission details Mr. Warner is an 83-year-old male resident at [facility] with known history of aspiration pneumonia, COPD, CHF, atrial fibrillation, and multiple chronic medical problems, was brought in via EMS, and was admitted through the emergency room secondary to worsening shortness of breath, cough, and respiratory failure. Last night patient choked after drinking soda and progressively worsened. Patient is a poor historian. In the ER patient was found to be hypoxic with increased respiratory rate and effort. Initially his BP 160/59, WBC of 12.5. In the ER he was given IV bolus of 500 mg LR, antibiotics, and placed on O2. Patient was then admitted to the hospital. Patient was seen in August and September for aspiration pneumonia and on both occasions his Mycoplasma IgM was positive. Patient was treated for the Mycoplasma in September with 5 days of azithromycin. Patient is again has a positive IgM for Mycoplasma. Patient has a know history of aspiration with a swallow study done last month showing aspiration with residual. He has been admitted several times over the last year for similar episodes. Echo done 07/2017 showed an EF of 40% November 16, 2018 Patient did well over the evening and is much more alert. He was conversant and not confused. Patient has had a decreased need of oxygen, decrease in respiratory effort and rate, with increasing and his pulse ox. Echocardiogram done on yesterday, November 15, 2018, demonstrated left ventricular ejection fraction of 60-65% with visualized wall segments showing normal contractility, but not all gonzalez were well seen. Aortic valve and tricuspid is structurally normal, mild mitral valve regurgitation, trace tricuspid valve regurgitation. Patient is complaining of right groin pain worse with flexion and left shoulder pain. Patient has had similar pain in the past but not this severe. November 17, 2018 Patient continues to improve. He is on less oxygen and his only complaint is a poor night sleeping. Patient usually takes Tylenol PM 2 tablets in the evening before bed. This medication has been held while he's been here. Patient was transferred from the ICU yesterday to the floor and had a successful transition. He continues to ambulate and his progressing towards discharge. Patient has not had a bowel movement since admission. Patient is being seen in conjunction with Dr. Chavez. - Patient Data Vitals - Most Recent: Last Vital Signs Temp 97.9 F 11/17/18 09:12 Pulse 81 11/17/18 10:04 Resp 18 11/17/18 09:12 BP 101/47 L 11/17/18 10:04 Pulse Ox 94 L 11/17/18 09:14 Weight - Most Recent: 201 lb 11.2 oz I&O - Last 24 Hours: Intake & Output 11/16/18 11/17/18 11/17/18 22:59 06:59 14:59 Intake Total 220 900 Output Total 275 850 300 Balance -55 50 -300 Lab Results Last 24 Hours: Laboratory Results - last 24 hr 11/17/18 11/17/18 11/17/18 Range/Units 05:30 05:30 05:30 WBC 7.96 (4.23-9.07) K/mm3 RBC 3.68 L (4.63-6.08) M/mm3 Hgb 10.6 L (13.7-17.5) gm/L Hct 33.5 L (40.1-51.0) % MCV 91.0 (79.0-92.2) fl MCH 28.8 (25.7-32.2) pg MCHC 31.6 L (32.2-35.5) g/dl RDW Std Deviation 50.5 H (35.1-43.9) fL Plt Count 160 L (163-337) K/mm3 MPV 8.7 L (9.4-12.3) fl Neut % (Auto) 79.6 H (34.0-67.9) % Lymph % (Auto) 9.2 L (21.8-53.1) % Hamblen % (Auto) 9.7 (5.3-12.2) % Eos % (Auto) 1.3 (0.8-7.0) Baso % (Auto) 0.1 (0.1-1.2) % Neut # (Auto) 6.34 H (1.78-5.38) K/mm3 Lymph # (Auto) 0.73 L (1.32-3.57) K/mm3 Hamblen # (Auto) 0.77 (0.30-0.82) K/mm3 Eos # (Auto) 0.10 (0.04-0.54) K/mm3 Baso # (Auto) 0.01 (0.01-0.08) K/mm3 Manual Slide Review Abnormal smear PT 22.8 H (9.5-12.1) SECONDS INR 2.12 APTT 57 H (24-31) SECONDS Sodium 138 (136-145) mEq/L Potassium 3.8 (3.5-5.1) mEq/L Chloride 102 (98-107) mEq/L Carbon Dioxide 28 (21-32) mEq/L Anion Gap 11.8 (5-15) BUN 23 H (7-18) mg/dL Creatinine 1.4 H (0.7-1.3) mg/dL Est Cr Clr Drug Dosing 45.48 mL/min Estimated GFR (MDRD) 49 (>60) mL/min BUN/Creatinine Ratio 16.4 (14-18) Glucose 98 (83-115) mg/dL Calcium 8.6 (8.5-10.1) mg/dL Phosphorus 2.8 (2.6-4.7) mg/dL Magnesium 1.8 (1.8-2.4) mg/dl Troponin I < 0.017 (0.00-0.056) ng/mL Alfonso Results Last 24 Hours: Microbiology 11/14/18 22:35 Aerobic Blood Culture - Preliminary Blood - Venous NO GROWTH AFTER 2 DAYS Anaerobic Blood Culture - Preliminary NO GROWTH AFTER 2 DAYS 11/14/18 22:25 Aerobic Blood Culture - Preliminary Blood NO GROWTH AFTER 2 DAYS Anaerobic Blood Culture - Preliminary NO GROWTH AFTER 2 DAYS 11/15/18 09:10 Gram Stain - Final Sputum - Expectorated Sputum Culture - Preliminary Med Orders - Current: Current Medications Acetaminophen (Tylenol) 650 mg PO Q4H PRN PRN Reason: Fever Last Admin: 11/16/18 21:20 Dose: 650 mg Albuterol/Ipratropium (Duoneb 3.0-0.5 Mg/3 Ml) 3 ml NEB Q6HRRT PRN PRN Reason: Shortness of Breath Last Admin: 11/17/18 08:58 Dose: 3 ml Flecainide Acetate (Tambocor) 100 mg PO BID [facility] Last Admin: 11/17/18 10:04 Dose: 100 mg Guaifenesin (Mucinex) 600 mg PO BID [facility] Last Admin: 11/17/18 10:04 Dose: 600 mg Levofloxacin/Dextrose 750 mg/ (Premix) 150 mls @ 100 mls/hr IV Q48H [facility] Last Admin: 11/17/18 01:59 Dose: 100 mls/hr Ampicillin Sodium/Sulbactam (Sodium 3 gm/ Sodium Chloride) 100 mls @ 200 mls/ hr IV Q6H [facility] Last Admin: 11/17/18 06:47 Dose: 200 mls/hr Metoprolol Tartrate (Lopressor) 12.5 mg PO Q12H [facility] Last Admin: 11/17/18 10:04 Dose: 12.5 mg Pantoprazole Sodium (Protonix) 40 mg PO DAILY@0700 [facility] Last Admin: 11/17/18 06:47 Dose: 40 mg Simvastatin (Zocor) 20 mg PO BEDTIME [facility] Last Admin: 11/16/18 20:55 Dose: 20 mg Discontinued Medications Albuterol/Ipratropium (Duoneb 3.0-0.5 Mg/3 Ml) 3 ml NEB ONETIME ONE Stop: 11/14/18 22:21 Last Admin: 11/14/18 22:41 Dose: 3 ml Albuterol/Ipratropium (Duoneb 3.0-0.5 Mg/3 Ml) 3 ml NEB Q4HRRT [facility] Last Admin: 11/15/18 05:29 Dose: 3 ml Lactated Ringer's (Ringers, Lactated) 500 mls @ 999 mls/hr IV .BOLUS ONE Stop: 11/14/18 22:42 Last Admin: 11/14/18 22:17 Dose: 999 mls/hr Lactated Ringer's (Ringers, Lactated) 1,000 mls @ 125 mls/hr IV ASDIRECTED [facility] Ampicillin Sodium/Sulbactam (Sodium 3 gm/ Sodium Chloride) 100 mls @ 200 mls/ hr IV ONETIME ONE Stop: 11/15/18 00:44 Last Admin: 11/15/18 00:17 Dose: 200 mls/hr Sodium Chloride (Normal Saline) Confirm Administered Dose 100 mls @ as directed .ROUTE .STK-MED ONE Stop: 11/15/18 00:06 Last Admin: 11/15/18 00:33 Dose: Not Given Sodium Chloride (Normal Saline) 1,000 mls @ 50 mls/hr IV ASDIRECTED [facility] Last Admin: 11/15/18 02:21 Dose: 50 mls/hr Sodium Chloride (Normal Saline) 500 mls @ 999 mls/hr IV ONETIME ONE Stop: 11/15/18 03:40 Last Admin: 11/15/18 03:26 Dose: Not Given Sodium Chloride (Normal Saline) 1,000 mls @ 125 mls/hr IV ASDIRECTED [facility] Sodium Chloride (Normal Saline) 1,000 mls @ 25 mls/hr IV ASDIRECTED [facility] Last Admin: 11/15/18 12:07 Dose: 25 mls/hr Magnesium Sulfate/Dextrose 1 (gm/ Premix) 100 mls @ 100 mls/hr IV ONETIME ONE Stop: 11/15/18 11:24 Last Admin: 11/15/18 11:07 Dose: 100 mls/hr - Exam Quality Assessment: Supplemental Oxygen General: Alert, Oriented, No Acute Distress HEENT: Mucous Membr. Moist/[place]ibaldi Neck: Supple Lungs: Normal Respiratory Effort, Crackles (Minimal on right caleb) Cardiovascular: Irregular Rhythm GI/Abdominal Exam: Normal Bowel Sounds, Soft, Non-Tender Skin: Warm, Dry - Problem List & Annotations (1) Acute respiratory failure with hypoxia SNOMED Code(s): 11135542, 995950819 Code(s): J96.01 - ACUTE RESPIRATORY FAILURE WITH HYPOXIA Status: Acute Current Visit: Yes (2) Sepsis SNOMED Code(s): 00965368 Code(s): A41.9 - SEPSIS, UNSPECIFIED ORGANISM Status: Acute Current Visit : Yes (3) Aspiration into lower respiratory tract SNOMED Code(s): 769338592 Code(s): T17.800A - UNSP FOREIGN BODY IN OTH PRT RESP TRACT CAUSING ASPHYX, INIT Status: Acute Current Visit: Yes (4) Pneumonia SNOMED Code(s): 914900180 Code(s): J18.9 - PNEUMONIA, UNSPECIFIED ORGANISM Status: Acute Priority: High Current Visit: Yes Qualifiers: Pneumonia type: aspiration pneumonia Aspiration pneumonia type: due to vomit Laterality: unspecified laterality Lung location: unspecified part of lung Qualified Code(s): J69.0 - Pneumonitis due to inhalation of food and vomit (5) Atrial fibrillation and flutter SNOMED Code(s): 017476871 Code(s): I48.91 - UNSPECIFIED ATRIAL FIBRILLATION; I48.92 - UNSPECIFIED ATRIAL FLUTTER Status: Acute Current Visit: No (6) Congestive heart failure with left ventricular diastolic dysfunction SNOMED Code(s): 97904618, 204438142 Code(s): I50.30 - UNSPECIFIED DIASTOLIC (CONGESTIVE) HEART FAILURE Status: Acute Priority: High Current Visit: No Qualifiers: Congestive heart failure chronicity: acute on chronic Qualified Code(s): I50.33 - Acute on chronic diastolic (congestive) heart failure (7) Hypomagnesemia SNOMED Code(s): 487164577 Code(s): E83.42 - HYPOMAGNESEMIA Status: Acute Priority: High Current Visit: No - Problem List Review Problem List Initiated/Reviewed/Updated: Yes - My Orders Last 24 Hours: My Active Orders 11/16/18 09:30 Metoprolol Tartrate [Lopressor] 12.5 mg PO Q12H 11/16/18 16:46 Patient Status [ADT] Routine 11/16/18 16:47 Pulse Oximetry Continuous Monitoring [OM.PC] Routine - Plan Plan:: 1. acute respiratory failure with hypoxia - Respiratory failure secondary to pneumonia. - Supplemental oxygen to maintain pulse ox greater than 92%. Oxygenation, work of breathing, and respiratory rate has improved, but still requires minimal supplementation between 1 and 1-1/2 liters per minute - Respiratory toliet - Pt Is DNR/DNI 2. Sepsis Sepsis resolved 3. Pneumonia, aspiration - Chest x-ray Today shows improvement in vascular congestion. - Switched to oral antibiotics of Augmentin and Levaquin - Speech eval showed no aspiration recommended regular diet. 4. Congestive heart failure - Continue metoprolol at home dose. - Strict I's and O's. Urinary catheter will be DC'd, continue daily weights. 5. Hypomagnesemia - Resolved 6. Atrial fibrillation - Patient's INR decreased to 2.1. - Restart home warfarin dose. 7. Right hip and left shoulder pain -Pain is likely osteoarthritis worsened by decrease in activity. -Physical therapy has seen and will continue to follow. - Patient receiving acetaminophen for pain with good results. Involve physical therapy for ambulation and conditioning. Plan discharge to skilled care facility tomorrow. VTE prophylaxis-INR 2.1. Restart warfarin
[2018-11-17] MEDS ORDERED: Bisacodyl 10 MG Supp RECTAL ONE (10:33)
[2018-11-17] MEDS ORDERED: Magnesium Hydroxide 400 MG/5 ML Susp 30 ML Cup PO ONE (13:35)
[2018-11-17] MEDS ORDERED: Warfarin 2 MG Tab PO SCH (18:00)
[2018-11-17] MEDS ORDERED: Levofloxacin 500 MG Tab PO SCH (20:00)
[2018-11-17] MEDS: Amoxicillin/Clavulanate K 875-125 MG Tab PO SCH (20:57)
[2018-11-17] MEDS: Simvastatin 20 MG Tab PO SCH (20:58)
[2018-11-17] MEDS: Acetaminophen 325 MG Tab PO PRN (20:59)
[2018-11-18] MEDS ORDERED: Bisacodyl 10 MG Supp RECTAL ONE (06:00)
[2018-11-18] MEDS: Pantoprazole 40 MG Tab.CR PO SCH (06:38)
[2018-11-18] MEDS: Albuterol/Ipratropium 3.0-0.5 MG/3 ML Neb Soln NEB PRN (08:23)
[2018-11-18 08:37] VITALS: BP 118/79
[2018-11-18] MEDS: Flecainide 50 MG Tab PO SCH (08:37)
[2018-11-18] MEDS: Amoxicillin/Clavulanate K 875-125 MG Tab PO SCH (08:38)
[2018-11-18] MEDS: guaiFENesin 600 MG Tab.ER PO SCH (08:38)
[2018-11-18] MEDS: Metoprolol Tartrate 25 MG Tab PO SCH (08:39)
--- NOTE | 2018-11-18 09:53 | PCM.DCSUM1 ---
Discharge Summary - Hospital Course Free Text/Narrative:: Admission details Mr. Warner is an 83-year-old male resident at [facility] with known history of aspiration pneumonia, COPD, CHF, atrial fibrillation, and multiple chronic medical problems, was brought in via EMS, and was admitted through the emergency room secondary to worsening shortness of breath, cough, and respiratory failure. Last night patient choked after drinking soda and progressively worsened. Patient is a poor historian. In the ER patient was found to be hypoxic with increased respiratory rate and effort. Initially his BP 160/59, WBC of 12.5. In the ER he was given IV bolus of 500 mg LR, antibiotics, and placed on O2. Patient was then admitted to the hospital. Patient was seen in August and September for aspiration pneumonia and on both occasions his Mycoplasma IgM was positive. Patient was treated for the Mycoplasma in September with 5 days of azithromycin. Patient is again has a positive IgM for Mycoplasma. Patient has a know history of aspiration with a swallow study done last month showing aspiration with residual. He has been admitted several times over the last year for similar episodes. Echo done 07/2017 showed an EF of 40% November 16, 2018 Patient did well over the evening and is much more alert. He was conversant and not confused. Patient has had a decreased need of oxygen, decrease in respiratory effort and rate, with increasing and his pulse ox. Echocardiogram done on yesterday, November 15, 2018, demonstrated left ventricular ejection fraction of 60-65% with visualized wall segments showing normal contractility, but not all gonzalez were well seen. Aortic valve and tricuspid is structurally normal, mild mitral valve regurgitation, trace tricuspid valve regurgitation. Patient is complaining of right groin pain worse with flexion and left shoulder pain. Patient has had similar pain in the past but not this severe. November 17, 2018 Patient continues to improve. He is on less oxygen and his only complaint is a poor night sleeping. Patient usually takes Tylenol PM 2 tablets in the evening before bed. This medication has been held while he's been here. Patient was transferred from the ICU yesterday to the floor and had a successful transition. He continues to ambulate and his progressing towards discharge. Patient has not had a bowel movement since admission. November 18, 2018 Patient had a good day yesterday. He c/o of mild left hip pain, but otherwise is doing well. He was transitioned to oral antibiotics yesterday without incident. This morning we help his oxygen and he maintained O2 sats > 92%. He is ready for discharge back to skilled care without change in his current plan except an addition of Augmentin. Patient is being seen in conjunction with Dr. Chavez. Diagnosis: Stroke: No - Discharge Data Discharge Date: 11/18/18 Discharge Disposition: DC/Tfer to SNF 03 Condition: Good - Discharge Diagnosis/Problem(s) (1) Acute respiratory failure with hypoxia SNOMED Code(s): 84703265, 763269160 ICD Code: J96.01 - ACUTE RESPIRATORY FAILURE WITH HYPOXIA Status: Acute Current Visit: Yes (2) Sepsis SNOMED Code(s): 71284922 ICD Code: A41.9 - SEPSIS, UNSPECIFIED ORGANISM Status: Acute Current Visit: Yes (3) Aspiration into lower respiratory tract SNOMED Code(s): 663730968 ICD Code: T17.800A - UNSP FOREIGN BODY IN OTH PRT RESP TRACT CAUSING ASPHYX, INIT Status: Acute Current Visit: Yes (4) Pneumonia SNOMED Code(s): 598673251 ICD Code: J18.9 - PNEUMONIA, UNSPECIFIED ORGANISM Status: Acute Priority : High Current Visit: Yes Qualifiers: Pneumonia type: aspiration pneumonia Aspiration pneumonia type: due to vomit Laterality: unspecified laterality Lung location: unspecified part of lung Qualified Code(s): J69.0 - Pneumonitis due to inhalation of food and vomit (5) Atrial fibrillation and flutter SNOMED Code(s): 978025992 ICD Code: I48.91 - UNSPECIFIED ATRIAL FIBRILLATION; I48.92 - UNSPECIFIED ATRIAL FLUTTER Status: Acute Current Visit: No (6) Congestive heart failure with left ventricular diastolic dysfunction SNOMED Code(s): 48700818, 307737544 ICD Code: I50.30 - UNSPECIFIED DIASTOLIC (CONGESTIVE) HEART FAILURE Status : Acute Priority: High Current Visit: No Qualifiers: Congestive heart failure chronicity: acute on chronic Qualified Code(s): I50.33 - Acute on chronic diastolic (congestive) heart failure (7) Hypomagnesemia SNOMED Code(s): 400680170 ICD Code: E83.42 - HYPOMAGNESEMIA Status: Acute Priority: High Current Visit: No - Patient Summary/Data Consults: Consultations 11/16/18 09:23 Consult to Physical Therapy [PT Evaluation and Treatment] [CONS] Routine - Patient Instructions Diet: Heart Healthy Diet Activity: As Tolerated Driving: Do Not Drive Showering/Bathing: May Shower Notify Provider of: Fever, Nausea and/or Vomiting - Discharge Plan Prescriptions/Med Rec: Amoxicillin/Clavulanate K [Augmentin 875-125 MG] 1 tab PO Q12HR #8 tablet levoFLOXacin [Levaquin] 500 mg PO Q24H #4 tablet Home Medications: Home Meds Acetaminophen/Diphenhydramine [Tylenol Pm Ex-Strength Caplet] 2 tab PO BEDTIME 02/27/15 [History] Ezetimibe [Zetia] 10 mg PO DAILY 02/27/15 [History] Omeprazole 20 mg PO DAILY 02/27/15 [History] Pravastatin [Pravachol] 40 mg PO DAILY 02/27/15 [History] Budesonide [Pulmicort] 0.5 mg NEB BID 11/20/16 [History] Flecainide [Tambocor] 100 mg PO BID 11/20/16 [History] Warfarin [Coumadin] 2 mg PO SUTUWETHFRSA 11/20/16 [History] Umeclidinium Mason [Incruse Ellipta*] 62.5 mcg INH DAILY 12/27/16 [History] Metoprolol Tartrate 12.5 mg PO BID 08/04/17 [History] Albuterol Sulfate 2.5 mg NEB Q4H PRN 08/23/18 [History] Ipratropium/Albuterol Sulfate [Iprat-Albut 0.5-3(2.5) MG/3 ML] 3 ml INH BID 04/25 [History] guaiFENesin [Mucinex] 600 mg PO BID 10/12/18 [History] Tamsulosin [Flomax] 0.4 mg PO BID 11/14/18 [History] Warfarin [Coumadin] 1 mg PO MO 11/17/18 [History] Albuterol/Ipratropium [DuoNeb 3.0-0.5 MG/3 ML] 3 ml NEB Q6HRRT PRN neb [Rx] Amoxicillin/Clavulanate K [Augmentin 875-125 MG] 1 tab PO Q12HR #8 tablet [Rx] levoFLOXacin [Levaquin] 500 mg PO Q24H #4 tablet 11/18/18 [Rx] Patient Handouts: Aspiration Precautions, Adult, Aspiration Pneumonia Referrals: Toribio Franco MD [Primary Care Provider] - (Please call clinic tomorrow and make an appointment to follow-up in 7-10 days.) - Discharge Summary/Plan Comment DC Time >30 min.: Yes - General Info Date of Service: 11/18/18 Admission Dx/Problem (Free Text: Admission Diagnosis/Problem Admission Diagnosis/Problem acute respiratory failure with hypoxia Subjective Update: Admission details Mr. Warner is an 83-year-old male resident at [facility] with known history of aspiration pneumonia, COPD, CHF, atrial fibrillation, and multiple chronic medical problems, was brought in via EMS, and was admitted through the emergency room secondary to worsening shortness of breath, cough, and respiratory failure. Last night patient choked after drinking soda and progressively worsened. Patient is a poor historian. In the ER patient was found to be hypoxic with increased respiratory rate and effort. Initially his BP 160/59, WBC of 12.5. In the ER he was given IV bolus of 500 mg LR, antibiotics, and placed on O2. Patient was then admitted to the hospital. Patient was seen in August and September for aspiration pneumonia and on both occasions his Mycoplasma IgM was positive. Patient was treated for the Mycoplasma in September with 5 days of azithromycin. Patient is again has a positive IgM for Mycoplasma. Patient has a know history of aspiration with a swallow study done last month showing aspiration with residual. He has been admitted several times over the last year for similar episodes. Echo done 07/2017 showed an EF of 40% November 16, 2018 Patient did well over the evening and is much more alert. He was conversant and not confused. Patient has had a decreased need of oxygen, decrease in respiratory effort and rate, with increasing and his pulse ox. Echocardiogram done on yesterday, November 15, 2018, demonstrated left ventricular ejection fraction of 60-65% with visualized wall segments showing normal contractility, but not all gonzalez were well seen. Aortic valve and tricuspid is structurally normal, mild mitral valve regurgitation, trace tricuspid valve regurgitation. Patient is complaining of right groin pain worse with flexion and left shoulder pain. Patient has had similar pain in the past but not this severe. November 17, 2018 Patient continues to improve. He is on less oxygen and his only complaint is a poor night sleeping. Patient usually takes Tylenol PM 2 tablets in the evening before bed. This medication has been held while he's been here. Patient was transferred from the ICU yesterday to the floor and had a successful transition. He continues to ambulate and his progressing towards discharge. Patient has not had a bowel movement since admission. November 18, 2018 Patient had a good day yesterday. He c/o of mild left hip pain, but otherwise is doing well. He was transitioned to oral antibiotics yesterday without incident. This morning we help his oxygen and he maintained O2 sats > 92%. He is ready for discharge back to skilled care without change in his current plan except an addition of Augmentin. patient did have 2 bowel movements this morning and one overnight. Patient is being seen in conjunction with Dr. Chavez. Functional Status: Reports: Tolerating Diet - Review of Systems General: Reports: No Symptoms HEENT: Reports: No Symptoms Pulmonary: Reports: No Symptoms Cardiovascular: Reports: No Symptoms Gastrointestinal: Reports: No Symptoms - Patient Data Vitals - Most Recent: Last Vital Signs Temp 97.7 F 11/18/18 08:36 Pulse 70 11/18/18 08:39 Resp 18 11/18/18 08:36 BP 118/79 11/18/18 08:39 Pulse Ox 95 11/18/18 08:36 Weight - Most Recent: 196 lb 1.6 oz I&O - Last 24 hours: Intake & Output 11/17/18 11/18/18 11/18/18 22:59 06:59 14:59 Intake Total 650 400 Output Total 200 1500 Balance 450 -1100 Lab Results - Last 24 hrs: Laboratory Results - last 24 hr 11/17/18 11/18/18 11/18/18 Range/Units 12:20 05:32 05:32 WBC 6.69 (4.23-9.07) K/mm3 RBC 3.81 L (4.63-6.08) M/mm3 Hgb 10.8 L (13.7-17.5) gm/L Hct 34.3 L (40.1-51.0) % MCV 90.0 (79.0-92.2) fl MCH 28.3 (25.7-32.2) pg MCHC 31.5 L (32.2-35.5) g/dl RDW Std Deviation 48.2 H (35.1-43.9) fL Plt Count 188 (163-337) K/mm3 MPV 8.8 L (9.4-12.3) fl Neut % (Auto) 74.3 H (34.0-67.9) % Lymph % (Auto) 12.9 L (21.8-53.1) % Bell % (Auto) 10.9 (5.3-12.2) % Eos % (Auto) 1.2 (0.8-7.0) Baso % (Auto) 0.1 (0.1-1.2) % Neut # (Auto) 4.97 (1.78-5.38) K/mm3 Lymph # (Auto) 0.86 L (1.32-3.57) K/mm3 Bell # (Auto) 0.73 (0.30-0.82) K/mm3 Eos # (Auto) 0.08 (0.04-0.54) K/mm3 Baso # (Auto) 0.01 (0.01-0.08) K/mm3 PT 21.4 H 20.2 H (9.5-12.1) SECONDS INR 1.99 1.88 Sodium (136-145) mEq/L Potassium (3.5-5.1) mEq/L Chloride (98-107) mEq/L Carbon Dioxide (21-32) mEq/L Anion Gap (5-15) BUN (7-18) mg/dL Creatinine (0.7-1.3) mg/dL Est Cr Clr Drug Dosing mL/min Estimated GFR (MDRD) (>60) mL/min BUN/Creatinine Ratio (14-18) Glucose (83-115) mg/dL Calcium (8.5-10.1) mg/dL Phosphorus (2.6-4.7) mg/dL Magnesium (1.8-2.4) mg/dl 11/18/18 Range/Units 05:32 WBC (4.23-9.07) K/mm3 RBC (4.63-6.08) M/mm3 Hgb (13.7-17.5) gm/L Hct (40.1-51.0) % MCV (79.0-92.2) fl MCH (25.7-32.2) pg MCHC (32.2-35.5) g/dl RDW Std Deviation (35.1-43.9) fL Plt Count (163-337) K/mm3 MPV (9.4-12.3) fl Neut % (Auto) (34.0-67.9) % Lymph % (Auto) (21.8-53.1) % Bell % (Auto) (5.3-12.2) % Eos % (Auto) (0.8-7.0) Baso % (Auto) (0.1-1.2) % Neut # (Auto) (1.78-5.38) K/mm3 Lymph # (Auto) (1.32-3.57) K/mm3 Bell # (Auto) (0.30-0.82) K/mm3 Eos # (Auto) (0.04-0.54) K/mm3 Baso # (Auto) (0.01-0.08) K/mm3 PT (9.5-12.1) SECONDS INR Sodium 138 (136-145) mEq/L Potassium 4.1 (3.5-5.1) mEq/L Chloride 102 (98-107) mEq/L Carbon Dioxide 30 (21-32) mEq/L Anion Gap 10.1 (5-15) BUN 19 H (7-18) mg/dL Creatinine 1.4 H (0.7-1.3) mg/dL Est Cr Clr Drug Dosing 45.48 mL/min Estimated GFR (MDRD) 49 (>60) mL/min BUN/Creatinine Ratio 13.6 L (14-18) Glucose 96 (83-115) mg/dL Calcium 8.8 (8.5-10.1) mg/dL Phosphorus 2.6 (2.6-4.7) mg/dL Magnesium 1.8 (1.8-2.4) mg/dl MILLY Results - Last 24 hrs: Microbiology 11/14/18 22:35 Aerobic Blood Culture - Preliminary Blood - Venous NO GROWTH AFTER 3 DAYS Anaerobic Blood Culture - Preliminary NO GROWTH AFTER 3 DAYS 11/14/18 22:25 Aerobic Blood Culture - Preliminary Blood NO GROWTH AFTER 3 DAYS Anaerobic Blood Culture - Preliminary NO GROWTH AFTER 3 DAYS 11/15/18 09:10 Gram Stain - Final Sputum - Expectorated Sputum Culture - Preliminary Med Orders - Current: Current Medications Acetaminophen (Tylenol) 650 mg PO Q4H PRN PRN Reason: Fever Last Admin: 11/17/18 20:59 Dose: 650 mg Albuterol/Ipratropium (Duoneb 3.0-0.5 Mg/3 Ml) 3 ml NEB Q6HRRT PRN PRN Reason: Shortness of Breath Last Admin: 11/18/18 08:23 Dose: 3 ml Amoxicillin/Clavulanate Potassium (Augmentin 875 Mg/125 Mg) 1 tab PO Q12HR [facility] Last Admin: 11/18/18 08:38 Dose: 1 tab Flecainide Acetate (Tambocor) 100 mg PO BID [facility] Last Admin: 11/18/18 08:37 Dose: 100 mg Guaifenesin (Mucinex) 600 mg PO BID [facility] Last Admin: 11/18/18 08:38 Dose: 600 mg Levofloxacin (Levaquin) 500 mg PO Q24H [facility] Last Admin: 11/17/18 20:56 Dose: 500 mg Metoprolol Tartrate (Lopressor) 12.5 mg PO Q12H [facility] Last Admin: 11/18/18 08:39 Dose: 12.5 mg Pantoprazole Sodium (Protonix) 40 mg PO DAILY@0700 [facility] Last Admin: 11/18/18 06:38 Dose: 40 mg Simvastatin (Zocor) 20 mg PO BEDTIME [facility] Last Admin: 11/17/18 20:58 Dose: 20 mg Warfarin Sodium (Coumadin) 2 mg PO DAILY@1800 [facility] Last Admin: 11/17/18 18:28 Dose: 2 mg Discontinued Medications Albuterol/Ipratropium (Duoneb 3.0-0.5 Mg/3 Ml) 3 ml NEB ONETIME ONE Stop: 11/14/18 22:21 Last Admin: 11/14/18 22:41 Dose: 3 ml Albuterol/Ipratropium (Duoneb 3.0-0.5 Mg/3 Ml) 3 ml NEB Q4HRRT [facility] Last Admin: 11/15/18 05:29 Dose: 3 ml Bisacodyl (Dulcolax) 10 mg RECTAL ONETIME ONE Stop: 11/17/18 10:34 Last Admin: 11/17/18 11:04 Dose: 10 mg Bisacodyl (Dulcolax) 10 mg RECTAL ONETIME ONE Stop: 11/18/18 06:01 Last Admin: 11/18/18 06:38 Dose: Not Given Lactated Ringer's (Ringers, Lactated) 500 mls @ 999 mls/hr IV .BOLUS ONE Stop: 11/14/18 22:42 Last Admin: 11/14/18 22:17 Dose: 999 mls/hr Lactated Ringer's (Ringers, Lactated) 1,000 mls @ 125 mls/hr IV ASDIRECTED [facility] Ampicillin Sodium/Sulbactam (Sodium 3 gm/ Sodium Chloride) 100 mls @ 200 mls/ hr IV ONETIME ONE Stop: 11/15/18 00:44 Last Admin: 11/15/18 00:17 Dose: 200 mls/hr Sodium Chloride (Normal Saline) Confirm Administered Dose 100 mls @ as directed .ROUTE .K-MED ONE Stop: 11/15/18 00:06 Last Admin: 11/15/18 00:33 Dose: Not Given Levofloxacin/Dextrose 750 mg/ (Premix) 150 mls @ 100 mls/hr IV Q48H [facility] Last Admin: 11/17/18 01:59 Dose: 100 mls/hr Sodium Chloride (Normal Saline) 1,000 mls @ 50 mls/hr IV ASDIRECTED [facility] Last Admin: 11/15/18 02:21 Dose: 50 mls/hr Ampicillin Sodium/Sulbactam (Sodium 3 gm/ Sodium Chloride) 100 mls @ 200 mls/ hr IV Q6H [facility] Last Admin: 11/17/18 06:47 Dose: 200 mls/hr Sodium Chloride (Normal Saline) 500 mls @ 999 mls/hr IV ONETIME ONE Stop: 11/15/18 03:40 Last Admin: 11/15/18 03:26 Dose: Not Given Sodium Chloride (Normal Saline) 1,000 mls @ 125 mls/hr IV ASDIRECTED [facility] Sodium Chloride (Normal Saline) 1,000 mls @ 25 mls/hr IV ASDIRECTED [facility] Last Admin: 11/15/18 12:07 Dose: 25 mls/hr Magnesium Sulfate/Dextrose 1 (gm/ Premix) 100 mls @ 100 mls/hr IV ONETIME ONE Stop: 11/15/18 11:24 Last Admin: 11/15/18 11:07 Dose: 100 mls/hr Magnesium Hydroxide (Milk Of Magnesia) 30 ml PO ONETIME ONE Stop: 11/17/18 13:36 Last Admin: 11/17/18 13:55 Dose: 30 ml - Exam General: Reports: Alert, Oriented HEENT: Reports: Mucous Membr. Moist/[place] Neck: Reports: Supple Lungs: Reports: Clear to Auscultation, Normal Respiratory Effort Cardiovascular: Reports: Irregular Rhythm GI/Abdominal Exam: Normal Bowel Sounds, Soft, Non-Tender Extremities: Normal Inspection, Normal Range of Motion, Non-Tender, Pedal Edema (scant) Neurological: Reports: No New Focal Deficit Psy/Mental Status: Reports: Alert, Normal Affect, Normal Mood
== END 2018-11-18 11:40 | DRG 871 ==
LOC: SUPCPDRO 21:23 → JD.ED 21:23 → JD.ICU 11-15 01:20 → JD.MS 11-16 18:34
PROVIDERS: ADMIT Internal Medicine; ATTEND Family Medicine
DX: A41.9 Sepsis, unspecified organism (principal); J69.0 Pneumonitis due to inhalation of food and vomit; J96.01 Acute respiratory failure with hypoxia; I50.9 Heart failure, unspecified; I13.0 Hypertensive heart and chronic kidney disease with heart failure and stage 1 through stage 4 chronic kidney disease, or unspecified chronic kidney disease; I48.92 Unspecified atrial flutter; R09.02 Hypoxemia; I50.30 Unspecified diastolic (congestive) heart failure; B96.0 Mycoplasma pneumoniae [M. pneumoniae] as the cause of diseases classified elsewhere; N40.0 Benign prostatic hyperplasia without lower urinary tract symptoms; M15.9 Polyosteoarthritis, unspecified; E83.42 Hypomagnesemia; I48.91 Unspecified atrial fibrillation; E78.00 Pure hypercholesterolemia, unspecified; J44.9 Chronic obstructive pulmonary disease, unspecified; N18.3 Chronic kidney disease, stage 3 (moderate); R50.9 Fever, unspecified; R05 Cough; Z85.118 Personal history of other malignant neoplasm of bronchus and lung; Z90.2 Acquired absence of lung [part of]; Z99.81 Dependence on supplemental oxygen; Z79.899 Other long term (current) drug therapy; Z79.01 Long term (current) use of anticoagulants; Z87.891 Personal history of nicotine dependence; Z66 Do not resuscitate
CPT/HCPCS: 36415; 71045; 80053; 83605; 84484; 85007; 85027; 85610; 85730; 86738; 87040 ×2; 87804 ×2; 93005; 94640; 96361; 96365; 99285; J0295; J7030; J7120; 36600; 51702; 80048; 82803; 82962; 83735; 83880; 84100; 84443; 85025; 87070; 87205; 87641; 87899; 93306; 94667; 94668; 94761; 94762; 97110-GP; 97116-GP; 97140-GP; 97162-GP; 97530-GP; A9270-GY; J1956; J3475; J7040; J7620-GY

== ENCOUNTER 2019-02-26 20:13 | Emergency (ER) | payer MEDICARE, BC ==
[2019-02-26 20:22] VITALS: BP 137/80
[2019-02-26] MEDS ORDERED: Lactulose Soln 10 GM/15 ML 30 ML UD Cup PO ONE (20:46)
--- NOTE | 2019-02-26 20:47 | EDM.PDOC ---
ED HPI GENERAL MEDICAL PROBLEM - General Chief Complaint: Abdominal Pain Stated Complaint: [facility] Time Seen by Provider: 02/26/19 20:40 Source of Information: Reports: Patient History Limitations: Reports: No Limitations - History of Present Illness INITIAL COMMENTS - FREE TEXT/NARRATIVE: 83 y/o male presents to ER with cc chest pain that radiates to his lower abdomen. He denies fever or chills. He reports symptoms started about noon today and have gotten progressively worse. He states he started vomiting this evening. He reports not having a bowel movement in a week. He does have a history of hiatal hernia, GERD, CHF, A- FIB, HTN. He is accompanied by family member. He denies and SOB. Onset: Today Onset Date: 02/26/19 Onset Time: 12:00 Duration: Getting Worse, Intermittent Location: Reports: Abdomen Quality: Reports: Ache Severity: Mild Improves with: Reports: None Worsens with: Reports: None Associated Symptoms: Reports: cough w sputum, Nausea/Vomiting. Denies: Chest Pain, Fever/Chills, Shortness of Breath Upper Abdomen Pain Score (Numeric/FACES): 4 - Related Data Allergies Allergy/AdvReac Type Severity Reaction Status Date / Time No Known Allergies Allergy Verified 02/26/19 20:22 Home Meds: Home Meds Acetaminophen/Diphenhydramine [Tylenol Pm Ex-Strength Caplet] 2 tab PO BEDTIME 02/27/15 [History] Ezetimibe [Zetia] 10 mg PO DAILY 02/27/15 [History] Omeprazole 20 mg PO DAILY 02/27/15 [History] Pravastatin [Pravachol] 40 mg PO DAILY 02/27/15 [History] Budesonide [Pulmicort] 0.5 mg NEB BID 11/20/16 [History] Flecainide [Tambocor] 100 mg PO BID 11/20/16 [History] Warfarin [Coumadin] 2 mg PO DAILY 11/20/16 [History] Umeclidinium [place] [Incruse Ellipta*] 62.5 mcg INH DAILY 12/27/16 [History] Albuterol Sulfate 2.5 mg NEB Q4H PRN 08/23/18 [History] Ipratropium/Albuterol Sulfate [Iprat-Albut 0.5-3(2.5) MG/3 ML] 3 ml INH BID 04/25 [History] guaiFENesin [Mucinex] 600 mg PO BID 10/12/18 [History] Tamsulosin [Flomax] 0.4 mg PO BID 11/14/18 [History] Albuterol/Ipratropium [DuoNeb 3.0-0.5 MG/3 ML] 3 ml NEB Q6HRRT PRN neb [Rx] traZODone HCl [Trazodone HCl] 25 mg PO BEDTIME 02/26/19 [History] Past Medical History HEENT History: Reports: None Other HEENT History: Wears glasss. Cardiovascular History: Reports: Afib, Heart Failure, High Cholesterol, Hypertension, Other (See Below) Other Cardiovascular History: Sinoatrial node dysfunction Respiratory History: Reports: COPD, Other (See Below) Other Respiratory History: Aspiration, left lung mass, respiratory arrest, hypoxia, cough Gastrointestinal History: Reports: GERD, Hemorrhoids Genitourinary History: Reports: Other (See Below) Other Genitourinary History: Chronic kidney disease stage III, balanoposthitis, hypertrophy of prostate Musculoskeletal History: Reports: None Neurological History: Reports: Other (See Below) Other Neuro History: Acute encephalopathy Psychiatric History: Reports: None Endocrine/Metabolic History: Reports: None Hematologic History: Reports: None Immunologic History: Reports: None Oncologic (Cancer) History: Reports: Other (See Below) Other Oncologic History: Malignant neoplasm of bronchus/lung Dermatologic History: Reports: None - Infectious Disease History Infectious Disease History: Reports: Chicken Pox, Measles - Past Surgical History Head Surgeries/Procedures: Reports: None HEENT Surgical History: Reports: None Cardiovascular Surgical History: Reports: None Respiratory Surgical History: Reports: Thoracotomy, Other (See Below) Other Respiratory Surgeries/Procedures: Right lung lobectomy, right thoracotomy GI Surgical History: Reports: None Male Surgical History: Reports: None Endocrine Surgical History: Reports: None Neurological Surgical History: Reports: None Musculoskeletal Surgical History: Reports: None Oncologic Surgical History: Reports: None Dermatological Surgical History: Reports: None Social & Family History - Family History Family Medical History: Noncontributory - Tobacco Use Smoking Status *Q: Former Smoker Used Tobacco, but Quit: Yes Month/Year Tobacco Last Used: 1999 - Caffeine Use Caffeine Use: Reports: Coffee - Recreational Drug Use Recreational Drug Use: No - Living Situation & Occupation Living situation: Reports: , [facility] [place] Occupation: Retired ED ROS GENERAL - Review of Systems Review Of Systems: See Below Constitutional: Denies: Fever, Chills HEENT: Reports: Glasses, Hearing Loss Respiratory: Denies: Shortness of Breath Cardiovascular: Reports: Chest Pain Endocrine: Reports: No Symptoms GI/Abdominal: Reports: Abdominal Pain, Constipation : Reports: No Symptoms Musculoskeletal: Reports: No Symptoms Skin: Reports: No Symptoms Neurological: Reports: No Symptoms, Change in Speech Hematologic/Lymphatic: Reports: No Symptoms Immunologic: Reports: No Symptoms ED EXAM, GI/ABD - Physical Exam Exam: See Below Exam Limited By: No Limitations General Appearance: Alert, WD/WN, No Apparent Distress Throat/Mouth: Normal Inspection, Normal Lips, Normal Teeth, Normal Gums, Normal Oropharynx, Normal Voice, No Airway Compromise Neck: Normal Inspection, Supple, Non-Tender, Full Range of Motion Respiratory/Chest: No Respiratory Distress, No Accessory Muscle Use, Decreased Breath Sounds, Crackles Cardiovascular: Normal Peripheral Pulses, No Gallop, No JVD, No Murmur, No Rub GI/Abdominal Exam: Normal Bowel Sounds, Soft, No Organomegaly, No Distention, No Abnormal Bruit, No Mass, Tender, Other (hiatal hernia noted). No: Guarding, Rigid, Rebound Extremities: Normal Inspection, Normal Range of Motion, Non-Tender, Normal Capillary Refill, Pedal Edema Neurological: Alert, Oriented, CN II-XII Intact, Normal Gait Psychiatric: Normal Affect, Normal Mood Skin Exam: Warm, Dry, Intact, Normal Color, No Rash Lymphatic: No Adenopathy EKG INTERPRETATION EKG Date: 02/26/19 Time: 21:05 Rhythm: NSR Rate (Beats/Min): 84 EKG Interpretation Comments: NSR WITH 1* AVB NO AE. NO ISCHEMIC CHANGES. LAD 2 *lafb no lve/rve RBBB QTC prolonged. Course - Vital Signs Last Recorded V/S: Last Vital Signs Temp 96.9 F 02/26/19 20:18 Pulse 77 02/26/19 20:18 Resp 19 02/26/19 20:18 BP 137/80 02/26/19 20:18 Pulse Ox 95 02/26/19 20:18 - Orders/Labs/Meds Orders: Active Orders 24 hr Category Date Time Status EKG Documentation Completion [RC] STAT Care 02/26/19 20:41 Active Chest 2V [CR] Stat Exams 02/26/19 20:41 Taken KUB [Abdomen 1V Flat] [CR] Stat Exams 02/26/19 20:46 Taken Labs: Laboratory Tests 02/26/19 02/26/19 Range/Units 20:48 20:48 WBC 11.49 H (4.23-9.07) K/mm3 RBC 4.53 L (4.63-6.08) M/mm3 Hgb 12.2 L (13.7-17.5) gm/L Hct 39.0 L (40.1-51.0) % MCV 86.1 D (79.0-92.2) fl MCH 26.9 (25.7-32.2) pg MCHC 31.3 L (32.2-35.5) g/dl RDW Std Deviation 46.0 H (35.1-43.9) fL Plt Count 280 D (163-337) K/mm3 MPV 8.0 L (9.4-12.3) fl Neut % (Auto) 78.7 H (34.0-67.9) % Lymph % (Auto) 11.1 L (21.8-53.1) % [place] % (Auto) 8.3 (5.3-12.2) % Eos % (Auto) 0.7 L (0.8-7.0) Baso % (Auto) 0.2 (0.1-1.2) % Neut # (Auto) 9.04 H (1.78-5.38) K/mm3 Lymph # (Auto) 1.28 L (1.32-3.57) K/mm3 [place] # (Auto) 0.95 H (0.30-0.82) K/mm3 Eos # (Auto) 0.08 (0.04-0.54) K/mm3 Baso # (Auto) 0.02 (0.01-0.08) K/mm3 Manual Slide Review Abnormal smear Sodium 139 (136-145) mEq/L Potassium 4.0 (3.5-5.1) mEq/L Chloride 103 (98-107) mEq/L Carbon Dioxide 26 (21-32) mEq/L Anion Gap 14.0 (5-15) BUN 19 H (7-18) mg/dL Creatinine 1.6 H (0.7-1.3) mg/dL Est Cr Clr Drug Dosing 39.74 mL/min Estimated GFR (MDRD) 42 (>60) mL/min BUN/Creatinine Ratio 11.9 L (14-18) Glucose 110 (83-115) mg/dL Calcium 8.9 (8.5-10.1) mg/dL Total Bilirubin 0.3 (0.2-1.0) mg/dL AST 20 (15-37) U/L ALT 19 (16-63) U/L Alkaline Phosphatase 114 (46-116) U/L Troponin I < 0.017 (0.00-0.056) ng/mL Total Protein 7.6 (6.4-8.2) g/dl Albumin 3.5 (3.4-5.0) g/dl Globulin 4.1 gm/dL Albumin/Globulin Ratio 0.9 L (1-2) Lipase 202 (73-393) U/L Meds: Medications Discontinued Medications Generic Name Dose Route Start Last Admin Trade Name Freq PRN Reason Stop Dose Admin Al Hydroxide/Mg Hydroxide 30 0 ml 02/26/19 21:23 02/26/19 21:43 ml/ Lidocaine HCl 15 ml PO 02/26/19 21:24 45 ml ONETIME ONE Administration Famotidine 20 mg 02/26/19 21:23 02/26/19 21:39 Pepcid IVPUSH 02/26/19 21:24 20 mg ONETIME ONE Administration Lactulose 20 gm 02/26/19 20:46 02/26/19 21:26 Cephulac PO 02/26/19 20:47 20 gm ONETIME ONE Administration Ondansetron HCl 4 mg 02/26/19 20:57 02/26/19 21:12 Zofran IVPUSH 02/26/19 20:58 4 mg ONETIME ONE Administration - Re-Assessments/Exams Free Text/Narrative Re-Assessment/Exam: 02/26/19 21:00 chest x-ray revealed no acute findings, old emphysemic changes. EKG revealed NSR w 1* AVB. WBC 11.49 RBC 4.53 H &H 12.2/39.0 Na+ 139 K+ 4.0 chl 103 co2 26 bun 19 creatine 1.6 glucose 110 ast 20 alt 19 troponin 0.017 lipase 202. I will medicate with GI cocktail no abdominal pain. 02/26/19 22:19 States he feels better after GI cocktail. I feel his pain is due to hiatal Hernia and GERD. I will discharge home with Marixasec. Instructed to follow up with his PCP. Instructed to return to the ER for any new or acute worsening symptoms. Patient verbalized understanding and is comfortable with plan for discharge. He is stable at time of discharge. Departure - Departure Time of Disposition: 22:21 Disposition: Home, Self-Care 01 Condition: Good Clinical Impression: Hiatal hernia GERD (gastroesophageal reflux disease) Qualifiers: Esophagitis presence: without esophagitis Qualified Code(s): K21.9 - Gastro- esophageal reflux disease without esophagitis Abdominal pain Qualifiers: Abdominal location: upper abdomen, unspecified Qualified Code(s): R10.10 - Upper abdominal pain, unspecified - Discharge Information Instructions: Food Choices for Gastroesophageal Reflux Disease, Adult, Hiatal Hernia Referrals: Toribio Franco MD [Primary Care Provider] - Forms: ED Department Discharge Additional Instructions: You have been diagnosis with abdominal pain and chest pain. You EKG did not reveal any ischemic changes, you did not have a heart attack. Your lab studies were unremarkable. I feel your pain is due to you hiatal hernia and GERD. I recommend you follow a low fat diet, don't eat 2 hours before you go to bed. Follow up with your PCP. Return to the ER for any new or acute worsen symptoms. - My Orders Last 24 Hours: My Active Orders 02/26/19 20:41 EKG Documentation Completion [RC] STAT Chest 2V [CR] Stat 02/26/19 20:46 KUB [Abdomen 1V Flat] [CR] Stat - Assessment/Plan Last 24 Hours: My Active Orders 02/26/19 20:41 EKG Documentation Completion [RC] STAT Chest 2V [CR] Stat 02/26/19 20:46 KUB [Abdomen 1V Flat] [CR] Stat
[2019-02-26] MEDS ORDERED: Ondansetron 4 MG/2 ML SDV IVPUSH ONE (20:57)
[2019-02-26] MEDS ORDERED: Famotidine 20 MG/2 ML SDV IVPUSH ONE (21:23)
[2019-02-26] MEDS ORDERED: Alum Hydrox/Mag Hydrox/Simeth 30 ML, Lidocaine 2% 15 ML PO ONE ×2 (21:23)
--- NOTE | 2019-02-27 12:15 | CR ---
Chest: Two views of the chest were obtained. Comparison: Prior chest x-ray of 11/17/18. Lung markings are increased compatible with chronic change. Scarring is noted within both lung bases. No acute parenchymal change is seen. Heart size and mediastinum are normal. Bony structures are unremarkable for the patient's age. Impression: 1. Stable chronic change. Nothing acute is appreciated. Diagnostic code #2
--- NOTE | 2019-02-27 12:23 | CR ---
Abdomen: Supine view of the abdomen was obtained. Comparison: No prior abdominal x-ray. Mild increased stool is noted throughout the colon. Bowel gas pattern is otherwise unremarkable. Mild scoliosis and mild degenerative change is noted within the spine. Vascular calcification is seen. Joint space narrowing is noted within the left hip. Impression: 1. Increased stool within the colon and other incidental findings. Diagnostic code #2
== END 2019-02-26 23:00 | disposition home or self-care (01) ==
LOC: JD.ED 20:13
DX: K21.9 Gastro-esophageal reflux disease without esophagitis (principal); K44.9 Diaphragmatic hernia without obstruction or gangrene; I13.10 Hypertensive heart and chronic kidney disease without heart failure, with stage 1 through stage 4 chronic kidney disease, or unspecified chronic kidney disease; N18.3 Chronic kidney disease, stage 3 (moderate); I50.9 Heart failure, unspecified; J44.9 Chronic obstructive pulmonary disease, unspecified; Z87.891 Personal history of nicotine dependence; Z79.899 Other long term (current) drug therapy
CPT/HCPCS: 36415; 71046; 74018; 80053; 83690; 84484; 85025; 93005; 96374; 96375; 99284; A9270; J2405; J3490; 93010

== ENCOUNTER 2019-02-27 07:45 | Inpatient (IN) | payer MEDICARE, BC ==
[2019-02-27] MEDS ORDERED: Ondansetron 4 MG/2 ML SDV IVPUSH ONE (07:59)
[2019-02-27] MEDS ORDERED: HYDROmorphone 1 MG/ML Syringe IVPUSH ONE (07:59)
--- NOTE | 2019-02-27 07:59 | EDM.PDOC ---
ED HPI GENERAL MEDICAL PROBLEM - General Chief Complaint: Gastrointestinal Problem Stated Complaint: [facility] Time Seen by Provider: 02/27/19 07:52 Source of Information: Reports: Patient History Limitations: Reports: No Limitations - History of Present Illness INITIAL COMMENTS - FREE TEXT/NARRATIVE: 83 year old male presents to the ED with severe pain Rt foot. Dyspnea with 02 sats of 82% on room air. Denies much of a cough. Mild abdominal pain. It was much worse last night when seen in the ED. had to sleep sitting up in the easy chair last night. I.e. orthopnea. O2 sats are improved to 94% on 3 L by nasal cannula placed by paramedics. Patient is not usually on oxygen at home. Patient fell 10 days ago and did suffer a laceration to his occipital scalp which is healing well. Complains of severe pain right foot 3 days Walk at all this morning due to pain. Diffuse abdominal pain for 3 days. Was seen in the ED last night for this diagnosis with constipation. Padding was given some form of laxative orally but no bowel movement. He reports he did have some chills during the night. He believes he is attempting his bladder normally. Denies any diarrhea. Feels generally weak. Onset: Gradual, Other (Abdominal pain for the last couple of days. Right foot pain 3 days.) Onset Date: 02/24/19 (Rationale worsening dyspnea over the last 3-4 days.) Duration: Day(s):, Getting Worse Location: Reports: Chest (Dyspnea with O2 sats of only 82% on room air. Minimal cough), Abdomen (Diffuse abdominal discomfort today. States was quite painful last night. He was given a laxative with no bowel movement.), Lower Extremity, Right (Diffuse right foot pain particularly the great toe and MCP joint.) Quality: Reports: Ache, Other (Dyspnea on minimal exertion. Orthopnea) Severity: Moderate (In getting worse.) Improves with: Reports: Rest (And sitting up. Unable to lie flat.), Other (Any movement of his right great toe causes severe pain.) Worsens with: Reports: Movement Context: Denies: Activity, Exercise, Lifting, Sick Contact, Trauma, Other Associated Symptoms: Reports: Cough, Fever/Chills, Loss of Appetite (Chills during the night and clinically he is febrile on examination.), Malaise, Rash ( Red swollen area right foot over the first MTP joint), Shortness of Breath, Weakness. Denies: No Other Symptoms, Confusion, Chest Pain (States minimal cough with minimal sputum production), cough w sputum, Diaphoresis, Nausea/ Vomiting, Seizure Treatments RESIDENTIAL MANAGER: Reports: Other (see below) (Generalized. Only his regular meds.) Right Foot Pain Score (Numeric/FACES): 0 - Related Data Allergies Allergy/AdvReac Type Severity Reaction Status Date / Time No Known Allergies Allergy Verified 02/27/19 08:06 Home Meds: Home Meds Acetaminophen/Diphenhydramine [Tylenol Pm Ex-Strength Caplet] 2 tab PO BEDTIME 02/27/15 [History] Ezetimibe [Zetia] 10 mg PO DAILY 02/27/15 [History] Omeprazole 20 mg PO DAILY 02/27/15 [History] Pravastatin [Pravachol] 40 mg PO DAILY 02/27/15 [History] Budesonide [Pulmicort] 0.5 mg NEB BID 11/20/16 [History] Flecainide [Tambocor] 100 mg PO BID 11/20/16 [History] Warfarin [Coumadin] 2 mg PO DAILY 11/20/16 [History] Umeclidinium [place] [Incruse Ellipta*] 62.5 mcg INH DAILY 12/27/16 [History] Albuterol Sulfate 2.5 mg NEB Q4H PRN 08/23/18 [History] Ipratropium/Albuterol Sulfate [Iprat-Albut 0.5-3(2.5) MG/3 ML] 3 ml INH BID 04/25 [History] guaiFENesin [Mucinex] 600 mg PO BID 10/12/18 [History] Tamsulosin [Flomax] 0.4 mg PO BID 11/14/18 [History] Albuterol/Ipratropium [DuoNeb 3.0-0.5 MG/3 ML] 3 ml NEB Q6HRRT PRN neb [Rx] traZODone HCl [Trazodone HCl] 25 mg PO BEDTIME 02/26/19 [History] Docusate Sodium [Colace] 50 mg PO DAILY PRN 02/27/19 [History] Past Medical History HEENT History: Reports: None Other HEENT History: Wears glasss. Cardiovascular History: Reports: Afib (On Coumadin chronically.), Heart Failure , High Cholesterol, Hypertension, Other (See Below) Other Cardiovascular History: Sinoatrial node dysfunction Respiratory History: Reports: COPD (With wheezing.), Other (See Below) Other Respiratory History: Aspiration, left lung mass, respiratory arrest, hypoxia, cough Gastrointestinal History: Reports: GERD, Hemorrhoids Genitourinary History: Reports: Other (See Below) Other Genitourinary History: Chronic kidney disease stage III, balanoposthitis, hypertrophy of prostate Musculoskeletal History: Reports: None Neurological History: Reports: Other (See Below) Other Neuro History: Acute encephalopathy Psychiatric History: Reports: None Endocrine/Metabolic History: Reports: None Hematologic History: Reports: None Immunologic History: Reports: None Oncologic (Cancer) History: Reports: Other (See Below) Other Oncologic History: Malignant neoplasm of bronchus/lung Dermatologic History: Reports: None - Infectious Disease History Infectious Disease History: Reports: Chicken Pox, Measles - Past Surgical History Head Surgeries/Procedures: Reports: None HEENT Surgical History: Reports: None Cardiovascular Surgical History: Reports: None Respiratory Surgical History: Reports: Thoracotomy, Other (See Below) Other Respiratory Surgeries/Procedures: Right lung lobectomy, right thoracotomy GI Surgical History: Reports: None Male Surgical History: Reports: None Endocrine Surgical History: Reports: None Neurological Surgical History: Reports: None Musculoskeletal Surgical History: Reports: None Oncologic Surgical History: Reports: None Dermatological Surgical History: Reports: None Social & Family History - Family History Family Medical History: Noncontributory - Caffeine Use Caffeine Use: Reports: Coffee - Living Situation & Occupation Living situation: Reports: , Other ([facility]) Occupation: Retired ED [employer] [facility] - Review of Systems Review Of Systems: See Below Constitutional: Reports: Chills, Malaise, Weakness, Fatigue, Decreased Appetite HEENT: Reports: Glasses, Hearing Loss Respiratory: Reports: Shortness of Breath, Wheezing, Cough. Denies: Pleuritic Chest Pain, Sputum, Hemoptysis Cardiovascular: Reports: Blood Pressure Problem, Dyspnea on Exertion (Chronic edema both lower extremities.), Edema, Lightheadedness, Orthopnea, Palpitations ( Chronically.). Denies: Chest Pain, Claudication (Chronic hypertension) Endocrine: Reports: Fatigue ( occasionalpalpitations) GI/Abdominal: Reports: Abdominal Pain, Constipation (Diffuse abdominal pain mostly infraumbilical and left lower quadrant.), Distension, Nausea. Denies: Diarrhea, Decreased Appetite ( No bowel movement for 3 days), Difficulty Swallowing, Flatus, Hematemesis, Hematochezia, Melena, Mucous in Stool, Vomiting (Transient nausea.) : Reports: Frequency, Other (Has known BPH. Usually up once or twice at night to void although he wears depends as well.) Musculoskeletal: Reports: Back Pain, Foot Pain (Knees hips and currently severe pain right foot first MTP joint), Joint Pain Skin: Reports: Bruising (Bruises easily as he is on Coumadin.) Neurological: Reports: Dizziness, Pre-Existing Deficit, Difficulty Walking, Weakness. Denies: Trouble Speaking Psychiatric: Reports: Anxiety Hematologic/Lymphatic: Reports: No Symptoms Immunologic: Reports: No Symptoms ED EXAM, GI/ABD - Physical Exam Exam: See Below Exam Limited By: No Limitations General Appearance: Alert, WD/WN, Moderate Distress (O2 sats only 82% on room air. Improved to 94% on 3 L. He does feel mildly warm to palpation.), Other Eyes: Bilateral: Normal Appearance (No scleral icterus.) Throat/Mouth: Other (Tongue is mildly dry and coated.) Head: Other (Has a healing laceration mid occipital scalp but no signs of secondary infection) Neck: Limited Range of Motion, Tender Lateral. No: Supple, Full Range of Motion (Tender laterally both sides.), Carotid Bruit, Lymphadenopathy (L), Lymphadenopathy (R) Respiratory/Chest: No Respiratory Distress, Respiratory Distress (Tachypnea 26- 30/m. O2 sats only 82% on room air.), Decreased Breath Sounds, Wheezing ( Wheezing throughout both lung zavala particularly on expiration.). No: Rales, Rhonchi Cardiovascular: Regular Rate, Rhythm, No Gallop, No Murmur, No Rub, Other ( Heart sounds are difficult to hear due to expiratory wheezes.). No: Normal Peripheral Pulses (Decreased breath sounds the lower 20% of lung zavala.) GI/Abdominal Exam: Soft (Distended and template to percussion. Compatible with aerophagia.), Non-Tender, No Organomegaly, No Abnormal Bruit, No Mass, Pelvis Stable, Distended (Male) Exam: No Hernia, Circumcised Back Exam: Decreased Range of Motion. No: CVA Tenderness (L), CVA Tenderness (R ) Extremities: Other (Patient has decreased range of motion of both hips and both knees compatible with most arthritic changes. He has marked erythema and swelling and increased warmth over the right great toe and first MTP joint compatible with gout. Any movement of the toe I either in the lateral or flexion -extension causes severe pain.). No: Normal Range of Motion Neurological: Alert ( To his knowledge he has not had gout in the past.), Oriented, No Motor/Sensory Deficits. 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) ST-T: Normal QT: Prolonged (Mildly prolonged) EKG Interpretation Comments: Abnormal ECG Course - Vital Signs Last Recorded V/S: Last Vital Signs Temp 37.4 C 02/27/19 08:27 Pulse 84 02/27/19 08:27 Resp 24 H 02/27/19 08:27 BP 110/53 L 02/27/19 08:27 Pulse Ox 93 L 02/27/19 09:13 - Orders/Labs/Meds Orders: Active Orders 24 hr Category Date Time Status Admission Status [Patient Status] [ADT] Routine ADT 02/27/19 11:54 Ordered Blood Glucose Check, Bedside [RC] ONETIME Care 02/27/19 08:02 Active EKG Documentation Completion [RC] STAT Care 02/27/19 08:00 Active Insert Jerome Catheter [Insert Urinary Catheter] [OM.PC] Care 02/27/19 07:45 Ordered Stat Oxygen Therapy [RC] ASDIRECTED Care 02/27/19 08:01 Active RT Aerosol Therapy [RC] ASDIRECTED Care 02/27/19 08:08 Active Urinary Catheter Assessment [RC] ASDIRECTED Care 02/27/19 07:45 Active CULTURE BLOOD [BC] Stat Lab 02/27/19 08:25 Received CULTURE BLOOD [BC] Stat Lab 02/27/19 08:57 Received Sodium Chloride 0.9% [Normal Saline] 1,000 ml Med 02/27/19 08:00 Active IV ASDIRECTED cefTRIAXone [Rocephin] 2 gm Med 02/27/19 09:15 Active Sodium Chloride 0.9% [Normal Saline] 100 ml IV Q24H Blood Culture x2 Reflex Set [OM.PC] Stat Oth 02/27/19 08:02 Ordered Medication Orders Sodium Chloride (Normal Saline) 1,000 mls @ 100 mls/hr IV ASDIRECTED ANIKA Last Admin: 02/27/19 09:04 Dose: 100 mls/hr Ceftriaxone Sodium 2 gm/ (Sodium Chloride) 100 mls @ 200 mls/hr IV Q24H ANIKA Last Admin: 02/27/19 09:35 Dose: 200 mls/hr Labs: Laboratory Tests 02/27/19 02/27/19 02/27/19 Range/Units 07:50 08:25 08:25 WBC 18.66 H (4.23-9.07) K/mm3 RBC 4.62 L (4.63-6.08) M/mm3 Hgb 12.3 L (13.7-17.5) gm/L Hct 39.7 L (40.1-51.0) % MCV 85.9 (79.0-92.2) fl MCH 26.6 (25.7-32.2) pg MCHC 31.0 L (32.2-35.5) g/dl RDW Std Deviation 47.3 H (35.1-43.9) fL Plt Count 274 (163-337) K/mm3 MPV 8.3 L (9.4-12.3) fl Neutrophils % (Manual) 89 H (40-60) % Band Neutrophils % 1 (0-10) % Lymphocytes % (Manual) 6 L (20-40) % Atypical Lymphs % 0 % Monocytes % (Manual) 4 (2-10) % Eosinophils % (Manual) 0 L (0.8-7.0) % Basophils % (Manual) 0 L (0.2-1.2) Platelet Estimate Adequate RBC Morph Comment Normal ESR (0-15) mm/hr PT 45.4 H D (9.5-12.1) SECONDS INR 4.29 APTT 64 H (24-31) SECONDS Sodium (136-145) mEq/L Potassium (3.5-5.1) mEq/L Chloride (98-107) mEq/L Carbon Dioxide (21-32) mEq/L Anion Gap (5-15) BUN (7-18) mg/dL Creatinine (0.7-1.3) mg/dL Est Cr Clr Drug Dosing mL/min Estimated GFR (MDRD) (>60) mL/min BUN/Creatinine Ratio (14-18) Glucose (83-115) mg/dL POC Glucose (83-110) mg/dL Lactic Acid (0.4-2.0) mmol/L Uric Acid (3.5-7.2) mg/dL Calcium (8.5-10.1) mg/dL Magnesium (1.8-2.4) mg/dl Total Bilirubin (0.2-1.0) mg/dL AST (15-37) U/L ALT (16-63) U/L Alkaline Phosphatase (46-116) U/L CK-MB (CK-2) (0-3.6) ng/ml Troponin I (0.00-0.056) ng/mL C-Reactive Protein (<1.0) mg/dL NT-Pro-B Natriuret Pep (0-450) pg/mL Total Protein (6.4-8.2) g/dl Albumin (3.4-5.0) g/dl Globulin gm/dL Albumin/Globulin Ratio (1-2) Urine Color Yellow (Yellow) Urine Appearance Clear (Clear) Urine pH 6.0 (5.0-8.0) Ur Specific [place] 1.025 (1.005-1.030) Urine Protein 2+ H (Negative) Urine Glucose (UA) Negative (Negative) Urine Ketones Negative (Negative) Urine Occult Blood Trace-lysed H (Negative) Urine Nitrite Negative (Negative) Urine Bilirubin Negative (Negative) Urine Urobilinogen 0.2 (0.2-1.0) Ur Leukocyte Esterase Negative (Negative) Urine RBC 0-5 (0-5) /hpf Urine WBC Not seen (0-5) /hpf Ur Epithelial Cells Not seen (0-5) /hpf Urine Bacteria Rare (FEW) /hpf Urine Mucus Few (FEW) /hpf 02/27/19 02/27/19 02/27/19 Range/Units 08:25 08:25 08:25 WBC (4.23-9.07) K/mm3 RBC (4.63-6.08) M/mm3 Hgb (13.7-17.5) gm/L Hct (40.1-51.0) % MCV (79.0-92.2) fl MCH (25.7-32.2) pg MCHC (32.2-35.5) g/dl RDW Std Deviation (35.1-43.9) fL Plt Count (163-337) K/mm3 MPV (9.4-12.3) fl Neutrophils % (Manual) (40-60) % Band Neutrophils % (0-10) % Lymphocytes % (Manual) (20-40) % Atypical Lymphs % % Monocytes % (Manual) (2-10) % Eosinophils % (Manual) (0.8-7.0) % Basophils % (Manual) (0.2-1.2) Platelet Estimate RBC Morph Comment ESR 17 H (0-15) mm/hr PT (9.5-12.1) SECONDS INR APTT (24-31) SECONDS Sodium 139 (136-145) mEq/L Potassium 4.8 (3.5-5.1) mEq/L Chloride 103 (98-107) mEq/L Carbon Dioxide 27 (21-32) mEq/L Anion Gap 13.8 (5-15) BUN 20 H (7-18) mg/dL Creatinine 1.9 H (0.7-1.3) mg/dL Est Cr Clr Drug Dosing 33.47 mL/min Estimated GFR (MDRD) 34 (>60) mL/min BUN/Creatinine Ratio 10.5 L (14-18) Glucose 99 (83-115) mg/dL POC Glucose (83-110) mg/dL Lactic Acid (0.4-2.0) mmol/L Uric Acid 8.3 H (3.5-7.2) mg/dL Calcium 8.7 (8.5-10.1) mg/dL Magnesium 1.7 L (1.8-2.4) mg/dl Total Bilirubin 0.4 (0.2-1.0) mg/dL AST 22 (15-37) U/L ALT 20 (16-63) U/L Alkaline Phosphatase 103 (46-116) U/L CK-MB (CK-2) 1.0 (0-3.6) ng/ml Troponin I < 0.017 (0.00-0.056) ng/mL C-Reactive Protein 6.6 H* (<1.0) mg/dL NT-Pro-B Natriuret Pep 1632 H (0-450) pg/mL Total Protein 7.3 (6.4-8.2) g/dl Albumin 3.3 L (3.4-5.0) g/dl Globulin 4.0 gm/dL Albumin/Globulin Ratio 0.8 L (1-2) Urine Color (Yellow) Urine Appearance (Clear) Urine pH (5.0-8.0) Ur Specific [place] (1.005-1.030) Urine Protein (Negative) Urine Glucose (UA) (Negative) Urine Ketones (Negative) Urine Occult Blood (Negative) Urine Nitrite (Negative) Urine Bilirubin (Negative) Urine Urobilinogen (0.2-1.0) Ur Leukocyte Esterase (Negative) Urine RBC (0-5) /hpf Urine WBC (0-5) /hpf Ur Epithelial Cells (0-5) /hpf Urine Bacteria (FEW) /hpf Urine Mucus (FEW) /hpf 02/27/19 02/27/19 Range/Units 08:25 08:53 WBC (4.23-9.07) K/mm3 RBC (4.63-6.08) M/mm3 Hgb (13.7-17.5) gm/L Hct (40.1-51.0) % MCV (79.0-92.2) fl MCH (25.7-32.2) pg MCHC (32.2-35.5) g/dl RDW Std Deviation (35.1-43.9) fL Plt Count (163-337) K/mm3 MPV (9.4-12.3) fl Neutrophils % (Manual) (40-60) % Band Neutrophils % (0-10) % Lymphocytes % (Manual) (20-40) % Atypical Lymphs % % Monocytes % (Manual) (2-10) % Eosinophils % (Manual) (0.8-7.0) % Basophils % (Manual) (0.2-1.2) Platelet Estimate RBC Morph Comment ESR (0-15) mm/hr PT (9.5-12.1) SECONDS INR APTT (24-31) SECONDS Sodium (136-145) mEq/L Potassium (3.5-5.1) mEq/L Chloride (98-107) mEq/L Carbon Dioxide (21-32) mEq/L Anion Gap (5-15) BUN (7-18) mg/dL Creatinine (0.7-1.3) mg/dL Est Cr Clr Drug Dosing mL/min Estimated GFR (MDRD) (>60) mL/min BUN/Creatinine Ratio (14-18) Glucose (83-115) mg/dL POC Glucose 107 (83-110) mg/dL Lactic Acid 1.0 (0.4-2.0) mmol/L Uric Acid (3.5-7.2) mg/dL Calcium (8.5-10.1) mg/dL Magnesium (1.8-2.4) mg/dl Total Bilirubin (0.2-1.0) mg/dL AST (15-37) U/L ALT (16-63) U/L Alkaline Phosphatase (46-116) U/L CK-MB (CK-2) (0-3.6) ng/ml Troponin I (0.00-0.056) ng/mL C-Reactive Protein (<1.0) mg/dL NT-Pro-B Natriuret Pep (0-450) pg/mL Total Protein (6.4-8.2) g/dl Albumin (3.4-5.0) g/dl Globulin gm/dL Albumin/Globulin Ratio (1-2) Urine Color (Yellow) Urine Appearance (Clear) Urine pH (5.0-8.0) Ur Specific [place] (1.005-1.030) Urine Protein (Negative) Urine Glucose (UA) (Negative) Urine Ketones (Negative) Urine Occult Blood (Negative) Urine Nitrite (Negative) Urine Bilirubin (Negative) Urine Urobilinogen (0.2-1.0) Ur Leukocyte Esterase (Negative) Urine RBC (0-5) /hpf Urine WBC (0-5) /hpf Ur Epithelial Cells (0-5) /hpf Urine Bacteria (FEW) /hpf Urine Mucus (FEW) /hpf Meds: Medications Generic Name Dose Route Start Last Admin Trade Name Freq PRN Reason Stop Dose Admin Sodium Chloride 1,000 mls @ 100 mls/hr 02/27/19 08:00 02/27/19 09:04 Normal Saline IV 100 mls/hr ASDIRECTED ANIKA Administration Ceftriaxone Sodium 2 gm/ 100 mls @ 200 mls/hr 02/27/19 09:15 02/27/19 09:35 Sodium Chloride IV 200 mls/hr Q24H ANIKA Administration Discontinued Medications Generic Name Dose Route Start Last Admin Trade Name Ever PRN Reason Stop Dose Admin Acetaminophen 650 mg 02/27/19 08:20 02/27/19 09:05 Tylenol PO 02/27/19 08:21 650 mg NOW ONE Administration Albuterol/Ipratropium 3 ml 02/27/19 08:08 02/27/19 09:13 Duoneb 3.0-0.5 Mg/3 Ml NEB 02/27/19 08:09 3 ml ONETIME ONE Administration Hydromorphone HCl 0.25 mg 02/27/19 07:59 02/27/19 09:05 Dilaudid IVPUSH 02/27/19 08:00 0.25 mg ONETIME ONE Administration Sodium Chloride 500 mls @ 250 mls/hr 02/27/19 09:56 Normal Saline IV 02/27/19 11:55 .BOLUS ONE Ondansetron HCl 4 mg 02/27/19 07:59 02/27/19 09:05 Zofran IVPUSH 02/27/19 08:00 4 mg ONETIME ONE Administration - Radiology Interpretation Free Text/Narrative:: 83-year-old male presents to the ED with generalized weakness worsening dyspnea overnight mild abdominal pain compared to last night. Dyspnea on minimal exertion with orthopnea had to sleep in his chair all night. Patient has known COPD. He has a history of paroxysmal atrial fibrillation is on Coumadin for this. He presents also with severe pain in his right foot particularly the right great toe over the last 3 days. Examination reveals this to be acute gouty arthritis. Examination of his chest reveals diffuse expiratory wheezes bilaterally. Query cardiac asthma. O2 sats improved to 94% on 3 L/m by nasal cannula. Apparently x-ray of the abdomen last evening identified constipation. He was given a laxative but no bowel movements occur. Denies any genitourinary urinary complaints. Cough he states is nonproductive. Plan DuoNeb. Tylenol 650 mg per ora for fever relief. Septic workup to be Done. Pain by catheterization upon arrival. Will be unable to take anti-inflammatories due to age and fact that he is on Coumadin. We'll hold off on use of prednisone for gout relief until we see how his lung/cardiac function is. - Re-Assessments/Exams Free Text/Narrative Re-Assessment/Exam: 02/27/19 09:12 portable chest x-ray reveals mild cardiomegaly. There is some tenting of the right hemidiaphragm which is chronic. There is diffuse mild vascular congestion particularly in both lower lobes. No pleural effusions no pneumothorax no signs of a pneumonia. X-ray of the abdomen reveals increased stool throughout the transverse colon with a lot of air or gas in the upper right hemicolon. There is increased stool in the descending colon but the rectal vault is empty. No signs of bowel obstruction. 02/27/19 09:55 blood pressures dropped to 79/40. His reports he often does this. His only medication will be alpha-zoila in tamsulosin she takes 0.4 mg twice daily. This includes dosage this morning. I suspect he is in heart failure but he also appears to be showing some early signs of sepsis. Will give 250 mils bolus of normal saline. Labs are still pending. 02/27/19 11:23 White count is elevated 18.66 with 89% neutrophils and 1% bands. Hemoglobin is 12.3 with hematocrit of 39.7. Platelet count is 274,000. Sedimentation rate is 17. PT is 45.4 i.e. elevated INR is markedly elevated at 4.29 i.e. supratherapeutic due to an underlying infection. PTT is also elevated at 64. Sodium is 139 with a potassium of 4.8. Chloride is 103 with a bicarbonate of 27. Anion gap is 13.8. BUN is 20 with a creatinine of 1.9. Estimated GFR is 34. BUN/creatinine ratio is 10.5. Glucose is 99. Lactic acid is 1.0. Uric acid is elevated at 8.3. Calcium is 8.7. Magnesium is 1.7 slightly low. Total bilirubin is 0.4. AST is 22 with an ALT of 20. Alk phosphatase is 103. CK-MB fraction is 1.0 troponin I is less than 0.017. C-reactive protein is 6.6. BNP is 1632. Routine is 7.3 with an albumin fraction of 3.3. Urinalysis shows 2+ proteinuria and trace of occult blood but no signs of infection. 02/27/19 12:[address] Waters- acid conditioner hospitalist and he will accept the patient in care. He'll be admitted to the med surgery floor on telemetry. 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 He has a marked leukocytosis a change from last night suggesting developing infective process of unclear etiology. Gout can raise the white blood cell count and elevated CRP but usually not quite this high. May be developing an infective process in the chest. Supratherapeutic INR and Coumadin will have to be withheld for at least 2-3 days. Elevated uric acid compatible with gouty arthritis cause. Uric acid will have to be reduced to below 5 to prevent interstitial nephritis. Suggest Uloric 40 mg once daily once his gout to settle down. Due to being on Coumadin patient cannot use anti-inflammatories for gout relief. Prednisone is an alternative will likely make him retain more fluid. Placed on antibiotics until results of cultures come back. Departure - Departure Time of Disposition: 11:59 Disposition: Admitted As Inpatient 68 Condition: Poor Clinical Impression: Hypoxia, Supratherapeutic INR, Gouty arthritis of right great toe, Constipation by delayed colonic transit, Adverse effects of medication Congestive heart failure Qualifiers: Heart failure type: diastolic Heart failure chronicity: acute on chronic Qualified Code(s): I50.33 - Acute on chronic diastolic (congestive) heart failure Hypotension Qualifiers: Hypotension type: hypotension due to drug Qualified Code(s): I95.2 - Hypotension due to drugs - Discharge Information *PRESCRIPTION DRUG MONITORING PROGRAM REVIEWED*: Not Applicable *COPY OF PRESCRIPTION DRUG MONITORING REPORT IN PATIENT GET: Not Applicable Referrals: Toribio Franco MD [Primary Care Provider] - Forms: ED Department Discharge - My Orders Last 24 Hours: My Active Orders 02/27/19 07:45 Insert Jerome Catheter [Insert Urinary Catheter] [OM.PC] Stat Urinary Catheter Assessment [RC] ASDIRECTED 02/27/19 08:00 EKG Documentation Completion [RC] STAT Sodium Chloride 0.9% [Normal Saline] 1,000 ml IV ASDIRECTED 02/27/19 08:01 Oxygen Therapy [RC] ASDIRECTED 02/27/19 08:02 Blood Glucose Check, Bedside [RC] ONETIME Blood Culture x2 Reflex Set [OM.PC] Stat 02/27/19 08:08 RT Aerosol Therapy [RC] ASDIRECTED 02/27/19 08:25 CULTURE BLOOD [BC] Stat 02/27/19 08:57 CULTURE BLOOD [BC] Stat 02/27/19 09:15 cefTRIAXone [Rocephin] 2 gm Sodium Chloride 0.9% [Normal Saline] 100 ml IV Q24H 02/27/19 11:54 Admission Status [Patient Status] [ADT] Routine - Assessment/Plan Last 24 Hours: My Active Orders 02/27/19 07:45 Insert Jerome Catheter [Insert Urinary Catheter] [OM.PC] Stat Urinary Catheter Assessment [RC] ASDIRECTED 02/27/19 08:00 EKG Documentation Completion [RC] STAT Sodium Chloride 0.9% [Normal Saline] 1,000 ml IV ASDIRECTED 02/27/19 08:01 Oxygen Therapy [RC] ASDIRECTED 02/27/19 08:02 Blood Glucose Check, Bedside [RC] ONETIME Blood Culture x2 Reflex Set [OM.PC] Stat 02/27/19 08:08 RT Aerosol Therapy [RC] ASDIRECTED 02/27/19 08:25 CULTURE BLOOD [BC] Stat 02/27/19 08:57 CULTURE BLOOD [BC] Stat 02/27/19 09:15 cefTRIAXone [Rocephin] 2 gm Sodium Chloride 0.9% [Normal Saline] 100 ml IV Q24H 02/27/19 11:54 Admission Status [Patient Status] [ADT] Routine
[2019-02-27] MEDS ORDERED: Albuterol/Ipratropium 3.0-0.5 MG/3 ML Neb Soln NEB ONE (08:08)
[2019-02-27] MEDS ORDERED: Acetaminophen 325 MG Tab PO ONE (08:20)
[2019-02-27] MEDS: Sodium Chloride 0.9% 1,000 ML IV SCH ×2 (09:04→15:46)
[2019-02-27] MEDS: cefTRIAXone 2 GM in Sodium Chloride 0.9% 100 ML IV SCH (09:35)
[2019-02-27] MEDS ORDERED: Sodium Chloride 0.9% 500 ML IV ONE (09:56)
--- NOTE | 2019-02-27 11:12 | CR ---
Abdomen: Supine view of the abdomen was obtained. Comparison: Prior abdominal x-ray of 02/26/19. Slight scoliosis is noted with mild degenerative change being seen within the spine. Bowel gas pattern appears within normal limits. No abnormal calcifications or discrete soft tissue abnormality is seen. Impression: 1. Incidental findings. Diagnostic code #2
--- NOTE | 2019-02-27 11:40 | CR ---
Chest: Frontal view of the chest was obtained. Comparison: Prior chest x-ray of 02/26/19. Heart size is normal. Tortuous thoracic aorta is seen. Lung markings are diffusely increased which appear fairly stable. Mild increased density within the left base is seen most of which appears to be due to atelectasis and scarring. Lungs otherwise are clear. Bony structures are grossly intact. Impression: 1. Diffuse increased lung markings which appear to be chronic. Increased density within the left lung base believed to represent scarring as well as atelectasis. 2. Other incidental findings. Diagnostic code #3
[2019-02-27] MEDS ORDERED: Bisacodyl 5 MG Tab PO PRN (14:23)
[2019-02-27] MEDS ORDERED: Acetaminophen/HYDROcodone 325-5 MG Tab PO PRN (14:23)
[2019-02-27] MEDS ORDERED: Ondansetron 4 MG Tab.DIS PO PRN (14:23)
[2019-02-27] MEDS ORDERED: Albuterol 0.083% 2.5 MG/3 ML Neb Soln NEB PRN (14:28)
[2019-02-27] MEDS ORDERED: Magnesium Sulfate/Water 4 GM in Premix Bag 1 BAG IV ONE (14:40)
[2019-02-27] MEDS ORDERED: Magnesium Hydroxide 400 MG/5 ML Susp 30 ML Cup PO ONE (14:40)
--- NOTE | 2019-02-27 14:44 | PCM.HP ---
H&P History of Present Illness - General Date of Service: 02/27/19 Admit Problem/Dx: Admission Diagnosis/Problem Admission Diagnosis/Problem Acute febrile illness - History of Present Illness Initial Comments - Free Text/Narative: This 83-year-old male who lives at home with known congestive heart failure, COPD, paroxysmal atrial fibrillation, and recurrent pneumonia, return to the emergency room this morning secondary to weakness and cough. Patient was seen initially last night for abdominal pain and was given a laxative for constipation medications for reflux and dyspepsia, and ultimately sent home. When he got home he was weak and couldn't stand. This morning he had not improved and continued to be weak. When EMS arrived at his home he was found to have low oxygenation and then right foot and toe pain. Patient was brought back into the emergency room and kept on O2. He was found to have a white count of over 18,000, elevated uric acid, right first metatarsal redness, pain, and swelling, and abdominal x-ray consistent with constipation. Chest x-ray showed diffuse increased lung markings which appear to be chronic. Increased density within the left lung base believed to represent scarring as well as atelectasis. BNP was 1632, which appears to be stable from prior hospitalization in November. Lactic acid was negative at 1.0. Patient was started on IV fluids and given Rocephin. His INR was found to be elevated at 4.29 which was felt secondary to an underlying infection. In the emergency room his blood pressure did drop to 79/40 and his reports this is a common occurrence. Right Foot Pain Score (Numeric/FACES): 0 - Related Data Allergies/Adverse Reactions: Allergies Allergy/AdvReac Type Severity Reaction Status Date / Time No Known Allergies Allergy Verified 02/27/19 08:06 Home Medications: Home Meds Acetaminophen/Diphenhydramine [Tylenol Pm Ex-Strength Caplet] 2 tab PO BEDTIME 02/27/15 [History] Ezetimibe [Zetia] 10 mg PO DAILY 02/27/15 [History] Omeprazole 20 mg PO DAILY 02/27/15 [History] Pravastatin [Pravachol] 40 mg PO DAILY 02/27/15 [History] Budesonide [Pulmicort] 0.5 mg NEB BID 11/20/16 [History] Flecainide [Tambocor] 100 mg PO BID 11/20/16 [History] Warfarin [Coumadin] 2 mg PO DAILY 11/20/16 [History] Umeclidinium [place] [Incruse Ellipta*] 62.5 mcg INH DAILY 12/27/16 [History] Albuterol Sulfate 2.5 mg NEB Q4H PRN 08/23/18 [History] Ipratropium/Albuterol Sulfate [Iprat-Albut 0.5-3(2.5) MG/3 ML] 3 ml INH BID 04/25 [History] guaiFENesin [Mucinex] 600 mg PO BID 10/12/18 [History] Tamsulosin [Flomax] 0.4 mg PO BID 11/14/18 [History] Albuterol/Ipratropium [DuoNeb 3.0-0.5 MG/3 ML] 3 ml NEB Q6HRRT PRN neb [Rx] traZODone HCl [Trazodone HCl] 25 mg PO BEDTIME 02/26/19 [History] Docusate Sodium [Colace] 50 mg PO DAILY PRN 02/27/19 [History] Past Medical History HEENT History: Reports: Hard of Hearing, Impaired Vision Other HEENT History: Wears glasss. Cardiovascular History: Reports: Afib, Heart Failure, High Cholesterol, Hypertension, Other (See Below) Other Cardiovascular History: Sinoatrial node dysfunction Respiratory History: Reports: COPD, Other (See Below) Other Respiratory History: Aspiration, left lung mass, respiratory arrest, hypoxia, cough Gastrointestinal History: Reports: Chronic Constipation, GERD, Hemorrhoids, Other (See Below) Other Gastrointestinal History: hiatal hernia discovered Genitourinary History: Reports: Other (See Below) Other Genitourinary History: Chronic kidney disease stage III, balanoposthitis, hypertrophy of prostate Musculoskeletal History: Reports: Arthritis Neurological History: Reports: Other (See Below) Other Neuro History: Acute encephalopathy Psychiatric History: Reports: None Endocrine/Metabolic History: Reports: None Hematologic History: Reports: None Immunologic History: Reports: None Oncologic (Cancer) History: Reports: Lung, Other (See Below) Other Oncologic History: Malignant neoplasm of bronchus/lung Dermatologic History: Reports: None - Infectious Disease History Infectious Disease History: Reports: Chicken Pox, Measles, Mumps - Past Surgical History Head Surgeries/Procedures: Reports: None HEENT Surgical History: Reports: None Cardiovascular Surgical History: Reports: Cardiac Ablation, Other (See Below) Other Cardiovascular Surgeries/Procedures: cardioversion Respiratory Surgical History: Reports: Thoracotomy, Other (See Below) Other Respiratory Surgeries/Procedures: Right lung lobectomy, right thoracotomy GI Surgical History: Reports: None Male Surgical History: Reports: None Endocrine Surgical History: Reports: None Neurological Surgical History: Reports: None Musculoskeletal Surgical History: Reports: None Oncologic Surgical History: Reports: Lobectomy Dermatological Surgical History: Reports: None Social & Family History - Family History Family Medical History: Noncontributory - Tobacco Use Smoking Status *Q: Former Smoker Years of Tobacco use: 40 Packs/Tins Daily: 2 Used Tobacco, but Quit: Yes Month/Year Tobacco Last Used: about 20 years ago Second Hand Smoke Exposure: Yes - Caffeine Use Caffeine Use: Reports: None - Recreational Drug Use Recreational Drug Use: No - Living Situation & Occupation Living situation: Reports: , Other ([facility]) Occupation: Retired H&P Review of Systems - Review of Systems: Review Of Systems: ROS reveals no pertinent complaints other than HPI. Exam - Exam Exam: See Below - Vital Signs Vital Signs: Last Vital Signs Temp 98.2 F 02/27/19 12:29 Pulse 73 02/27/19 12:29 Resp 21 H 02/27/19 12:29 BP 106/55 L 02/27/19 12:29 Pulse Ox 94 L 02/27/19 12:29 Weight: 204 lb 11.2 oz - Exam Quality Assessment: Supplemental Oxygen General: Alert, Oriented HEENT: Conjunctiva Clear, Mucosa Moist & Martell, Posterior Pharynx Clear Neck: Supple, Trachea Midline Lungs: Normal Respiratory Effort, Wheezing. No: Crackles, Rales Cardiovascular: Regular Rate, Regular Rhythm GI/Abdominal Exam: Normal Bowel Sounds, Soft, Non-Tender, No Organomegaly, No Distention Back Exam: Normal Inspection Extremities: Normal Range of Motion, No Pedal Edema, Joint Swelling, Other ( Right first metatarsal is exquisitely tender, red, and warm) Peripheral Pulses: 2+: Dorsalis Pedis (L), Dorsalis Pedis (R) Skin: Warm, Dry, Intact Neurological: Cranial Nerves Intact Neuro Extensive - Mental Status: Alert, Oriented x3, Normal Mood/Affect Psychiatric: Alert, Normal Affect, Normal Mood - Patient Data Lab Results Last 24 hrs: Laboratory Results - last 24 hr 02/27/19 02/27/19 02/27/19 Range/Units 07:50 08:25 08:25 WBC 18.66 H (4.23-9.07) K/mm3 RBC 4.62 L (4.63-6.08) M/mm3 Hgb 12.3 L (13.7-17.5) gm/L Hct 39.7 L (40.1-51.0) % MCV 85.9 (79.0-92.2) fl MCH 26.6 (25.7-32.2) pg MCHC 31.0 L (32.2-35.5) g/dl RDW Std Deviation 47.3 H (35.1-43.9) fL Plt Count 274 (163-337) K/mm3 MPV 8.3 L (9.4-12.3) fl Neutrophils % (Manual) 89 H (40-60) % Band Neutrophils % 1 (0-10) % Lymphocytes % (Manual) 6 L (20-40) % Atypical Lymphs % 0 % Monocytes % (Manual) 4 (2-10) % Eosinophils % (Manual) 0 L (0.8-7.0) % Basophils % (Manual) 0 L (0.2-1.2) Platelet Estimate Adequate RBC Morph Comment Normal ESR (0-15) mm/hr PT 45.4 H D (9.5-12.1) SECONDS INR 4.29 APTT 64 H (24-31) SECONDS Sodium (136-145) mEq/L Potassium (3.5-5.1) mEq/L Chloride (98-107) mEq/L Carbon Dioxide (21-32) mEq/L Anion Gap (5-15) BUN (7-18) mg/dL Creatinine (0.7-1.3) mg/dL Est Cr Clr Drug Dosing mL/min Estimated GFR (MDRD) (>60) mL/min BUN/Creatinine Ratio (14-18) Glucose (83-115) mg/dL POC Glucose (83-110) mg/dL Lactic Acid (0.4-2.0) mmol/L Uric Acid (3.5-7.2) mg/dL Calcium (8.5-10.1) mg/dL Magnesium (1.8-2.4) mg/dl Total Bilirubin (0.2-1.0) mg/dL AST (15-37) U/L ALT (16-63) U/L Alkaline Phosphatase (46-116) U/L CK-MB (CK-2) (0-3.6) ng/ml Troponin I (0.00-0.056) ng/mL C-Reactive Protein (<1.0) mg/dL NT-Pro-B Natriuret Pep (0-450) pg/mL Total Protein (6.4-8.2) g/dl Albumin (3.4-5.0) g/dl Globulin gm/dL Albumin/Globulin Ratio (1-2) Urine Color Yellow (Yellow) Urine Appearance Clear (Clear) Urine pH 6.0 (5.0-8.0) Ur Specific [place] 1.025 (1.005-1.030) Urine Protein 2+ H (Negative) Urine Glucose (UA) Negative (Negative) Urine Ketones Negative (Negative) Urine Occult Blood Trace-lysed H (Negative) Urine Nitrite Negative (Negative) Urine Bilirubin Negative (Negative) Urine Urobilinogen 0.2 (0.2-1.0) Ur Leukocyte Esterase Negative (Negative) Urine RBC 0-5 (0-5) /hpf Urine WBC Not seen (0-5) /hpf Ur Epithelial Cells Not seen (0-5) /hpf Urine Bacteria Rare (FEW) /hpf Urine Mucus Few (FEW) /hpf 02/27/19 02/27/19 02/27/19 Range/Units 08:25 08:25 08:25 WBC (4.23-9.07) K/mm3 RBC (4.63-6.08) M/mm3 Hgb (13.7-17.5) gm/L Hct (40.1-51.0) % MCV (79.0-92.2) fl MCH (25.7-32.2) pg MCHC (32.2-35.5) g/dl RDW Std Deviation (35.1-43.9) fL Plt Count (163-337) K/mm3 MPV (9.4-12.3) fl Neutrophils % (Manual) (40-60) % Band Neutrophils % (0-10) % Lymphocytes % (Manual) (20-40) % Atypical Lymphs % % Monocytes % (Manual) (2-10) % Eosinophils % (Manual) (0.8-7.0) % Basophils % (Manual) (0.2-1.2) Platelet Estimate RBC Morph Comment ESR 17 H (0-15) mm/hr PT (9.5-12.1) SECONDS INR APTT (24-31) SECONDS Sodium 139 (136-145) mEq/L Potassium 4.8 (3.5-5.1) mEq/L Chloride 103 (98-107) mEq/L Carbon Dioxide 27 (21-32) mEq/L Anion Gap 13.8 (5-15) BUN 20 H (7-18) mg/dL Creatinine 1.9 H (0.7-1.3) mg/dL Est Cr Clr Drug Dosing 33.47 mL/min Estimated GFR (MDRD) 34 (>60) mL/min BUN/Creatinine Ratio 10.5 L (14-18) Glucose 99 (83-115) mg/dL POC Glucose (83-110) mg/dL Lactic Acid (0.4-2.0) mmol/L Uric Acid 8.3 H (3.5-7.2) mg/dL Calcium 8.7 (8.5-10.1) mg/dL Magnesium 1.7 L (1.8-2.4) mg/dl Total Bilirubin 0.4 (0.2-1.0) mg/dL AST 22 (15-37) U/L ALT 20 (16-63) U/L Alkaline Phosphatase 103 (46-116) U/L CK-MB (CK-2) 1.0 (0-3.6) ng/ml Troponin I < 0.017 (0.00-0.056) ng/mL C-Reactive Protein 6.6 H* (<1.0) mg/dL NT-Pro-B Natriuret Pep 1632 H (0-450) pg/mL Total Protein 7.3 (6.4-8.2) g/dl Albumin 3.3 L (3.4-5.0) g/dl Globulin 4.0 gm/dL Albumin/Globulin Ratio 0.8 L (1-2) Urine Color (Yellow) Urine Appearance (Clear) Urine pH (5.0-8.0) Ur Specific [place] (1.005-1.030) Urine Protein (Negative) Urine Glucose (UA) (Negative) Urine Ketones (Negative) Urine Occult Blood (Negative) Urine Nitrite (Negative) Urine Bilirubin (Negative) Urine Urobilinogen (0.2-1.0) Ur Leukocyte Esterase (Negative) Urine RBC (0-5) /hpf Urine WBC (0-5) /hpf Ur Epithelial Cells (0-5) /hpf Urine Bacteria (FEW) /hpf Urine Mucus (FEW) /hpf 02/27/19 02/27/19 Range/Units 08:25 08:53 WBC (4.23-9.07) K/mm3 RBC (4.63-6.08) M/mm3 Hgb (13.7-17.5) gm/L Hct (40.1-51.0) % MCV (79.0-92.2) fl MCH (25.7-32.2) pg MCHC (32.2-35.5) g/dl RDW Std Deviation (35.1-43.9) fL Plt Count (163-337) K/mm3 MPV (9.4-12.3) fl Neutrophils % (Manual) (40-60) % Band Neutrophils % (0-10) % Lymphocytes % (Manual) (20-40) % Atypical Lymphs % % Monocytes % (Manual) (2-10) % Eosinophils % (Manual) (0.8-7.0) % Basophils % (Manual) (0.2-1.2) Platelet Estimate RBC Morph Comment ESR (0-15) mm/hr PT (9.5-12.1) SECONDS INR APTT (24-31) SECONDS Sodium (136-145) mEq/L Potassium (3.5-5.1) mEq/L Chloride (98-107) mEq/L Carbon Dioxide (21-32) mEq/L Anion Gap (5-15) BUN (7-18) mg/dL Creatinine (0.7-1.3) mg/dL Est Cr Clr Drug Dosing mL/min Estimated GFR (MDRD) (>60) mL/min BUN/Creatinine Ratio (14-18) Glucose (83-115) mg/dL POC Glucose 107 (83-110) mg/dL Lactic Acid 1.0 (0.4-2.0) mmol/L Uric Acid (3.5-7.2) mg/dL Calcium (8.5-10.1) mg/dL Magnesium (1.8-2.4) mg/dl Total Bilirubin (0.2-1.0) mg/dL AST (15-37) U/L ALT (16-63) U/L Alkaline Phosphatase (46-116) U/L CK-MB (CK-2) (0-3.6) ng/ml Troponin I (0.00-0.056) ng/mL C-Reactive Protein (<1.0) mg/dL NT-Pro-B Natriuret Pep (0-450) pg/mL Total Protein (6.4-8.2) g/dl Albumin (3.4-5.0) g/dl Globulin gm/dL Albumin/Globulin Ratio (1-2) Urine Color (Yellow) Urine Appearance (Clear) Urine pH (5.0-8.0) Ur Specific [place] (1.005-1.030) Urine Protein (Negative) Urine Glucose (UA) (Negative) Urine Ketones (Negative) Urine Occult Blood (Negative) Urine Nitrite (Negative) Urine Bilirubin (Negative) Urine Urobilinogen (0.2-1.0) Ur Leukocyte Esterase (Negative) Urine RBC (0-5) /hpf Urine WBC (0-5) /hpf Ur Epithelial Cells (0-5) /hpf Urine Bacteria (FEW) /hpf Urine Mucus (FEW) /hpf Result Diagrams: 02/27/19 08:25 02/27/19 08:25 - Problem List (1) Congestive heart failure SNOMED Code(s): 59129398 ICD Code: I50.9 - HEART FAILURE, UNSPECIFIED Status: Acute Current Visit : Yes Qualifiers: Heart failure type: diastolic Heart failure chronicity: acute on chronic Qualified Code(s): I50.33 - Acute on chronic diastolic (congestive) heart failure (2) Constipation by delayed colonic transit SNOMED Code(s): 62591070 ICD Code: K59.01 - SLOW TRANSIT CONSTIPATION Status: Acute Current Visit : Yes (3) Gouty arthritis of right great toe SNOMED Code(s): 7969441903856050 ICD Code: M10.9 - GOUT, UNSPECIFIED Status: Acute Current Visit: Yes (4) COPD exacerbation SNOMED Code(s): 476173208 ICD Code: J44.1 - CHRONIC OBSTRUCTIVE PULMONARY DISEASE W (ACUTE) EXACERBATION Status: Acute Current Visit: No Problem List Initiated/Reviewed/Updated: Yes Orders Last 24hrs: Active Orders 24 hr Category Date Time Status Admission Status [Patient Status] [ADT] Routine ADT 02/27/19 11:54 Active Blood Glucose Check, Bedside [RC] ONETIME Care 02/27/19 08:02 Active Blood Glucose Check, Bedside [RC] QIDACANDBED Care 02/27/19 14:23 Active EKG Documentation Completion [RC] STAT Care 02/27/19 08:00 Active Insert Jerome Catheter [Insert Urinary Catheter] [OM.PC] Care 02/27/19 07:45 Ordered Stat Oxygen Therapy [RC] ASDIRECTED Care 02/27/19 08:01 Active Oxygen Therapy [RC] PRN Care 02/27/19 14:23 Active RT Aerosol Therapy [RC] ASDIRECTED Care 02/27/19 08:08 Active RT Incentive Spirometry [RC] ASDIRECTED Care 02/27/19 14:35 Active Up ad Lucia [RC] ASDIRECTED Care 02/27/19 14:23 Active Urinary Catheter Assessment [RC] ASDIRECTED Care 02/27/19 07:45 Active VTE/DVT Education [RC] PER UNIT ROUTINE Care 02/27/19 14:23 Active Vital Signs [RC] Q4H Care 02/27/19 14:23 Active Heart Healthy Diet [DIET] Diet 02/27/19 Dinner Active CBC WITH AUTO DIFF [HEME] AM Lab 02/28/19 05:11 Ordered COMPREHENSIVE METABOLIC PN,CMP [CHEM] AM Lab 02/28/19 05:11 Ordered CULTURE BLOOD [BC] Stat Lab 02/27/19 08:25 Received CULTURE BLOOD [BC] Stat Lab 02/27/19 08:57 Received INR,PT,PROTHROMBIN TIME [COAG] DAILY Lab 02/27/19 14:30 Ordered MAGNESIUM [CHEM] AM Lab 02/28/19 05:11 Ordered Acetaminophen [Tylenol] Med 02/27/19 14:23 Active 650 mg PO Q4H PRN Acetaminophen/Diphenhydramine Med 02/27/19 21:00 Ordered 2 tab PO BEDTIME Acetaminophen/HYDROcodone [[place] 325-5 MG] Med 02/27/19 14:23 Active 1 tab PO Q4H PRN Albuterol [Proventil Neb Soln] Med 02/27/19 14:28 Active 2.5 mg NEB Q4H PRN Albuterol/Ipratropium [DuoNeb 3.0-0.5 MG/3 ML] Med 02/27/19 14:28 Active 3 ml NEB Q6HRRT PRN Bisacodyl [Dulcolax] Med 02/27/19 14:23 Active 5 mg PO DAILY PRN Budesonide [Pulmicort] Med 02/27/19 21:00 Active 0.5 mg NEB BID Ezetimibe [Zetia] Med 02/28/19 09:00 Active 10 mg PO DAILY Flecainide [Tambocor] Med 02/27/19 21:00 Active 100 mg PO BID Magnesium Hydroxide [Milk of Magnesia] Med 02/27/19 14:40 Once 30 ml PO ONETIME ONE Magnesium Sulfate/Water [Magnesium Sulfate in Water Med 02/27/19 14:40 Ordered Premix] 4 gm Premix Bag 1 bag IV ONETIME Ondansetron [Zofran ODT] Med 02/27/19 14:23 Active 4 mg PO Q4H PRN Pantoprazole [ProTONIX] Med 02/28/19 09:00 Active 40 mg PO DAILY Pharmacy to Dose - Warfarin Med 02/27/19 14:30 Ordered 1 dose .XX ASDIRECTED Polyethylene Glycol 3350 [MiraLAX] Med 02/28/19 09:00 Active 17 gm PO DAILY Pravastatin Med 02/28/19 09:00 Ordered 40 mg PO DAILY Sodium Chloride 0.9% [Normal Saline] 1,000 ml Med 02/27/19 08:00 Active IV ASDIRECTED Tamsulosin [Flomax] Med 02/27/19 21:00 Active 0.4 mg PO BID cefTRIAXone [Rocephin] 2 gm Med 02/27/19 09:15 Active Sodium Chloride 0.9% [Normal Saline] 100 ml IV Q24H guaiFENesin [Mucinex] Med 02/27/19 21:00 Active 600 mg PO BID predniSONE Med 02/27/19 14:40 Active 40 mg PO WITHBREAKFAST traZODone Med 02/27/19 21:00 Active 25 mg PO BEDTIME Blood Culture x2 Reflex Set [OM.PC] Stat Oth 02/27/19 08:02 Ordered Resuscitation Status Routine Resus Stat 02/27/19 12:48 Ordered Medication Orders Acetaminophen (Tylenol) 650 mg PO Q4H PRN PRN Reason: Pain (Mild 1-3)/fever Hydrocodone Bitart/Acetaminophen ([place] 325-5 Mg) 1 tab PO Q4H PRN PRN Reason: Pain (moderate 4-6) Albuterol (Proventil Neb Soln) 2.5 mg NEB Q4H PRN PRN Reason: Shortness of Breath Albuterol/Ipratropium (Duoneb 3.0-0.5 Mg/3 Ml) 3 ml NEB Q6HRRT PRN PRN Reason: Shortness of Breath Bisacodyl (Dulcolax) 5 mg PO DAILY PRN PRN Reason: Constipation Budesonide (Pulmicort) 0.5 mg NEB BID [facility] Ezetimibe (Zetia) 10 mg PO DAILY [facility] Flecainide Acetate (Tambocor) 100 mg PO BID [facility] Guaifenesin (Mucinex) 600 mg PO BID [facility] Sodium Chloride (Normal Saline) 1,000 mls @ 100 mls/hr IV ASDIRECTED [facility] Last Admin: 02/27/19 09:04 Dose: 100 mls/hr Ceftriaxone Sodium 2 gm/ (Sodium Chloride) 100 mls @ 200 mls/hr IV Q24H [facility] Last Admin: 02/27/19 09:35 Dose: 200 mls/hr Magnesium Sulfate 4 gm/ Premix 50 mls @ 12.5 mls/hr IV ONETIME ONE Stop: 02/27/19 18:39 Magnesium Hydroxide (Milk Of Magnesia) 30 ml PO ONETIME ONE Stop: 02/27/19 14:41 Non-Formulary Medication (Acetaminophen/Diphenhydramine) 2 tab PO BEDTIME [facility] Non-Formulary Medication (Pravastatin) 40 mg PO DAILY [facility] Ondansetron HCl (Zofran Odt) 4 mg PO Q4H PRN PRN Reason: nausea, able to take PO Pantoprazole Sodium (Protonix) 40 mg PO DAILY [facility] Polyethylene Glycol (Miralax) 17 gm PO DAILY [facility] Prednisone (Prednisone) 40 mg PO WITHBREAKFAST [facility] Tamsulosin HCl (Flomax) 0.4 mg PO BID [facility] Trazodone HCl (Trazodone) 25 mg PO BEDTIME [facility] Warfarin Sodium (Pharmacy To Dose - Warfarin) 1 dose .XX ASDIRECTED [facility] Assessment/Plan Comment:: COPD exacerbation with hypoxia * Prednisone 40 mg daily start today. * DuoNeb's 4 times a day * Albuterol nebulizer when necessary * Assessment spirometry * Rocephin daily * Repeat chest x-ray in the morning Congestive heart failure * BNP is 1600. This appears to be stable over the last few months. * Prednisone may increase fluid and salt retention, therefore continue to follow and monitor closely * Continue Lasix at home dose and other home meds Supratherapeutic INR * Hold Coumadin and have pharmacy follow * Daily INR Acute gouty flare-first episode * Patient may need definitive lowering of his uric acid as an outpatient. * Prednisone 40 mg daily should help with pain and swelling. * X-ray right foot Constipation * Milk of magnesia * MiraLAX CBC, CMP, mag, INR in the morning CODE STATUS: DNR/DNI Length of stay estimated around 2 days VTE prophylaxis with supratherapeutic INR
[2019-02-27] MEDS: predniSONE 20 MG Tab PO SCH (15:04)
[2019-02-27] MEDS: Budesonide 0.5 MG/2 ML Neb Susp NEB SCH (20:26)
[2019-02-27] MEDS: Albuterol/Ipratropium 3.0-0.5 MG/3 ML Neb Soln NEB PRN (20:27)
[2019-02-27] MEDS: Flecainide 50 MG Tab PO SCH (20:57)
[2019-02-27] MEDS: guaiFENesin 600 MG Tab.ER PO SCH (20:57)
[2019-02-27] MEDS: Tamsulosin 0.4 MG Cap.ER PO SCH (20:57)
[2019-02-27] MEDS: traZODone 50 MG Tab PO SCH (20:57)
[2019-02-27] MEDS ORDERED: ACETAMINOPHEN PO SCH (21:00)
[2019-02-27] MEDS ORDERED: DIPHENHYDRAMINE PO SCH (21:00)
[2019-02-28] MEDS: Sodium Chloride 0.9% 1,000 ML IV SCH (03:25)
[2019-02-28] MEDS ORDERED: Magnesium Hydroxide 400 MG/5 ML Susp 30 ML Cup PO ONE (06:00)
[2019-02-28] MEDS: predniSONE 20 MG Tab PO SCH (06:05)
[2019-02-28] MEDS: Budesonide 0.5 MG/2 ML Neb Susp NEB SCH ×2 (08:45→20:56)
[2019-02-28] MEDS: Polyethylene Glycol 3350 Powder 17 GM Packet PO SCH (09:13)
[2019-02-28] MEDS: Flecainide 50 MG Tab PO SCH ×2 (09:13→20:44)
[2019-02-28] MEDS: Pantoprazole 40 MG Tab.CR PO SCH (09:13)
[2019-02-28] MEDS: Simvastatin 20 MG Tab PO SCH (09:13)
[2019-02-28] MEDS: Ezetimibe 10 MG Tab PO SCH (09:13)
[2019-02-28] MEDS: guaiFENesin 600 MG Tab.ER PO SCH ×2 (09:13→20:44)
[2019-02-28] MEDS: Tamsulosin 0.4 MG Cap.ER PO SCH ×2 (09:13→20:43)
[2019-02-28] MEDS ORDERED: Bisacodyl 10 MG Supp RECTAL ONE (09:17)
[2019-02-28] MEDS: cefTRIAXone 2 GM in Sodium Chloride 0.9% 100 ML IV SCH (09:20)
--- NOTE | 2019-02-28 09:43 | CR ---
Chest: Portable view of the chest was obtained. Comparison: Prior chest x-ray of 02/27/19. Increased lung markings on both sides of the chest are seen which appear stable. Slight improving atelectasis is seen within the left base. No acute parenchymal change is definitely appreciated. Heart size is within normal limits for portable technique. Mild tortuosity of the thoracic aorta is seen. Slight scoliosis is noted within the spine. Impression: 1. Chronic appearing findings. Nothing acute is definitely appreciated. Diagnostic code #2
--- NOTE | 2019-02-28 09:43 | CR ---
Right foot: Two portable views of the right foot were obtained. Comparison: No previous study. Small plantar spur is seen. Lucent line is seen within the proximal phalanx of fourth digit believed to be artifact. No discrete fracture or other bony abnormality is seen. Vascular calcification is noted. Impression: 1. Nothing acute is definitely appreciated. If patient continues to be symptomatic, recommend repeat study in 10-14 days. Diagnostic code #2
--- NOTE | 2019-02-28 09:54 | PCM.PN ---
- General Info Date of Service: 02/28/19 Admission Dx/Problem (Free Text): Admission Diagnosis/Problem Admission Diagnosis/Problem Acute febrile illness Subjective Update: February 28, 2019 Patient did well overnight. He feels much better and has more energy. His right foot is less painful and he has no complaints of shortness of breath. He still is coughing but the sputum is clear. patient has still not had a bowel movement. Echocardiogram done on November 15, 2018 showed: 1. Left ventricular ejection fraction, by visual estimation, is 60-65%. 2. The visualized wall segments showed normal contractility, but not all gonzalez are well seen. 3. Aortic valve is structurally normal and tricuspid. 4. Mild mitral valve regurgitation. 5. The mitral valve is normal in structure. 6. Trace tricuspid valve regurgitation. Functional Status: Reports: Pain Controlled - Review of Systems General: Reports: No Symptoms HEENT: Reports: No Symptoms Pulmonary: Reports: Cough, Sputum Cardiovascular: Reports: No Symptoms. Denies: Chest Pain, Dyspnea on Exertion Gastrointestinal: Reports: No Symptoms. Denies: Abdominal Pain - Patient Data Vitals - Most Recent: Last Vital Signs Temp 98.1 F 02/28/19 07:23 Pulse 91 02/28/19 07:23 Resp 18 02/28/19 07:23 BP 152/58 H 02/28/19 07:23 Pulse Ox 93 L 02/28/19 08:46 Weight - Most Recent: 206 lb 12.8 oz I&O - Last 24 Hours: Intake & Output 02/27/19 02/28/19 02/28/19 22:59 06:59 14:59 Intake Total 300 2241 Output Total 100 500 Balance 200 1741 Imaging Impressions - Last 24 Hours: x-ray of the right foot and chest showed no acute changes. Lab Results Last 24 Hours: Laboratory Results - last 24 hr 02/27/19 02/27/19 02/27/19 Range/Units 08:25 08:25 08:25 WBC (4.23-9.07) K/mm3 RBC (4.63-6.08) M/mm3 Hgb (13.7-17.5) gm/L Hct (40.1-51.0) % MCV (79.0-92.2) fl MCH (25.7-32.2) pg MCHC (32.2-35.5) g/dl RDW Std Deviation (35.1-43.9) fL Plt Count (163-337) K/mm3 MPV (9.4-12.3) fl Neut % (Auto) (34.0-67.9) % Lymph % (Auto) (21.8-53.1) % [place] % (Auto) (5.3-12.2) % Eos % (Auto) (0.8-7.0) Baso % (Auto) (0.1-1.2) % Neut # (Auto) (1.78-5.38) K/mm3 Lymph # (Auto) (1.32-3.57) K/mm3 [place] # (Auto) (0.30-0.82) K/mm3 Eos # (Auto) (0.04-0.54) K/mm3 Baso # (Auto) (0.01-0.08) K/mm3 Manual Slide Review ESR 17 H (0-15) mm/hr PT 45.4 H D (9.5-12.1) SECONDS INR 4.29 APTT 64 H (24-31) SECONDS Sodium 139 (136-145) mEq/L Potassium 4.8 (3.5-5.1) mEq/L Chloride 103 (98-107) mEq/L Carbon Dioxide 27 (21-32) mEq/L Anion Gap 13.8 (5-15) BUN 20 H (7-18) mg/dL Creatinine 1.9 H (0.7-1.3) mg/dL Est Cr Clr Drug Dosing 33.47 mL/min Estimated GFR (MDRD) 34 (>60) mL/min BUN/Creatinine Ratio 10.5 L (14-18) Glucose 99 (83-115) mg/dL Lactic Acid (0.4-2.0) mmol/L Uric Acid 8.3 H (3.5-7.2) mg/dL Calcium 8.7 (8.5-10.1) mg/dL Magnesium 1.7 L (1.8-2.4) mg/dl Total Bilirubin 0.4 (0.2-1.0) mg/dL AST 22 (15-37) U/L ALT 20 (16-63) U/L Alkaline Phosphatase 103 (46-116) U/L CK-MB (CK-2) 1.0 (0-3.6) ng/ml Troponin I < 0.017 (0.00-0.056) ng/mL C-Reactive Protein 6.6 H* (<1.0) mg/dL NT-Pro-B Natriuret Pep (0-450) pg/mL Total Protein 7.3 (6.4-8.2) g/dl Albumin 3.3 L (3.4-5.0) g/dl Globulin 4.0 gm/dL Albumin/Globulin Ratio 0.8 L (1-2) 02/27/19 02/27/19 02/27/19 Range/Units 08:25 08:25 15:00 WBC (4.23-9.07) K/mm3 RBC (4.63-6.08) M/mm3 Hgb (13.7-17.5) gm/L Hct (40.1-51.0) % MCV (79.0-92.2) fl MCH (25.7-32.2) pg MCHC (32.2-35.5) g/dl RDW Std Deviation (35.1-43.9) fL Plt Count (163-337) K/mm3 MPV (9.4-12.3) fl Neut % (Auto) (34.0-67.9) % Lymph % (Auto) (21.8-53.1) % [place] % (Auto) (5.3-12.2) % Eos % (Auto) (0.8-7.0) Baso % (Auto) (0.1-1.2) % Neut # (Auto) (1.78-5.38) K/mm3 Lymph # (Auto) (1.32-3.57) K/mm3 [place] # (Auto) (0.30-0.82) K/mm3 Eos # (Auto) (0.04-0.54) K/mm3 Baso # (Auto) (0.01-0.08) K/mm3 Manual Slide Review ESR (0-15) mm/hr PT 51.3 H* (9.5-12.1) SECONDS INR 4.85 APTT (24-31) SECONDS Sodium (136-145) mEq/L Potassium (3.5-5.1) mEq/L Chloride (98-107) mEq/L Carbon Dioxide (21-32) mEq/L Anion Gap (5-15) BUN (7-18) mg/dL Creatinine (0.7-1.3) mg/dL Est Cr Clr Drug Dosing mL/min Estimated GFR (MDRD) (>60) mL/min BUN/Creatinine Ratio (14-18) Glucose (83-115) mg/dL Lactic Acid 1.0 (0.4-2.0) mmol/L Uric Acid (3.5-7.2) mg/dL Calcium (8.5-10.1) mg/dL Magnesium (1.8-2.4) mg/dl Total Bilirubin (0.2-1.0) mg/dL AST (15-37) U/L ALT (16-63) U/L Alkaline Phosphatase (46-116) U/L CK-MB (CK-2) (0-3.6) ng/ml Troponin I (0.00-0.056) ng/mL C-Reactive Protein (<1.0) mg/dL NT-Pro-B Natriuret Pep 1632 H (0-450) pg/mL Total Protein (6.4-8.2) g/dl Albumin (3.4-5.0) g/dl Globulin gm/dL Albumin/Globulin Ratio (1-2) 02/28/19 02/28/19 02/28/19 Range/Units 05:10 05:10 08:01 WBC 9.60 H (4.23-9.07) K/mm3 RBC 4.04 L (4.63-6.08) M/mm3 Hgb 10.9 L (13.7-17.5) gm/L Hct 35.3 L (40.1-51.0) % MCV 87.4 (79.0-92.2) fl MCH 27.0 (25.7-32.2) pg MCHC 30.9 L (32.2-35.5) g/dl RDW Std Deviation 46.9 H (35.1-43.9) fL Plt Count 243 (163-337) K/mm3 MPV 8.7 L (9.4-12.3) fl Neut % (Auto) 87.6 H (34.0-67.9) % Lymph % (Auto) 6.3 L (21.8-53.1) % [place] % (Auto) 5.5 (5.3-12.2) % Eos % (Auto) 0 L (0.8-7.0) Baso % (Auto) 0.1 (0.1-1.2) % Neut # (Auto) 8.41 H (1.78-5.38) K/mm3 Lymph # (Auto) 0.60 L (1.32-3.57) K/mm3 [place] # (Auto) 0.53 (0.30-0.82) K/mm3 Eos # (Auto) 0.00 L (0.04-0.54) K/mm3 Baso # (Auto) 0.01 (0.01-0.08) K/mm3 Manual Slide Review Abnormal smear ESR (0-15) mm/hr PT 52.5 H* (9.5-12.1) SECONDS INR 4.97 APTT (24-31) SECONDS Sodium 139 (136-145) mEq/L Potassium 5.2 H (3.5-5.1) mEq/L Chloride 104 (98-107) mEq/L Carbon Dioxide 26 (21-32) mEq/L Anion Gap 14.2 (5-15) BUN 21 H (7-18) mg/dL Creatinine 1.8 H (0.7-1.3) mg/dL Est Cr Clr Drug Dosing 35.33 mL/min Estimated GFR (MDRD) 36 (>60) mL/min BUN/Creatinine Ratio 11.7 L (14-18) Glucose 119 H (83-115) mg/dL Lactic Acid (0.4-2.0) mmol/L Uric Acid (3.5-7.2) mg/dL Calcium 8.6 (8.5-10.1) mg/dL Magnesium 2.4 (1.8-2.4) mg/dl Total Bilirubin 0.2 (0.2-1.0) mg/dL AST 22 (15-37) U/L ALT 17 (16-63) U/L Alkaline Phosphatase 84 (46-116) U/L CK-MB (CK-2) (0-3.6) ng/ml Troponin I (0.00-0.056) ng/mL C-Reactive Protein (<1.0) mg/dL NT-Pro-B Natriuret Pep (0-450) pg/mL Total Protein 6.6 (6.4-8.2) g/dl Albumin 2.7 L (3.4-5.0) g/dl Globulin 3.9 gm/dL Albumin/Globulin Ratio 0.7 L (1-2) Alfonso Results Last 24 Hours: Microbiology 02/27/19 08:25 Aerobic Blood Culture - Preliminary Blood - Venous NO GROWTH AFTER 1 DAY Anaerobic Blood Culture - Preliminary NO GROWTH AFTER 1 DAY 02/27/19 08:57 Aerobic Blood Culture - Preliminary Blood - Venous - Lab Draw NO GROWTH AFTER 1 DAY Anaerobic Blood Culture - Preliminary NO GROWTH AFTER 1 DAY Med Orders - Current: Current Medications Acetaminophen (Tylenol) 650 mg PO Q4H PRN PRN Reason: Pain (Mild 1-3)/fever Hydrocodone Bitart/Acetaminophen ([place] 325-5 Mg) 1 tab PO Q4H PRN PRN Reason: Pain (moderate 4-6) Albuterol (Proventil Neb Soln) 2.5 mg NEB Q4H PRN PRN Reason: Shortness of Breath Albuterol/Ipratropium (Duoneb 3.0-0.5 Mg/3 Ml) 3 ml NEB Q6HRRT PRN PRN Reason: Shortness of Breath Last Admin: 02/27/19 20:27 Dose: 3 ml Bisacodyl (Dulcolax) 5 mg PO DAILY PRN PRN Reason: Constipation Last Admin: 02/27/19 15:05 Dose: 5 mg Budesonide (Pulmicort) 0.5 mg NEB BID [facility] Last Admin: 02/28/19 08:45 Dose: 0.5 mg Ezetimibe (Zetia) 10 mg PO DAILY [facility] Last Admin: 02/28/19 09:13 Dose: 10 mg Flecainide Acetate (Tambocor) 100 mg PO BID [facility] Last Admin: 02/28/19 09:13 Dose: 100 mg Guaifenesin (Mucinex) 600 mg PO BID [facility] Last Admin: 02/28/19 09:13 Dose: 600 mg Sodium Chloride (Normal Saline) 1,000 mls @ 100 mls/hr IV ASDIRECTED [facility] Last Admin: 02/28/19 03:25 Dose: 100 mls/hr Ceftriaxone Sodium 2 gm/ (Sodium Chloride) 100 mls @ 200 mls/hr IV Q24H [facility] Last Admin: 02/28/19 09:20 Dose: 200 mls/hr Ondansetron HCl (Zofran Odt) 4 mg PO Q4H PRN PRN Reason: nausea, able to take PO Pantoprazole Sodium (Protonix) 40 mg PO DAILY [facility] Last Admin: 02/28/19 09:13 Dose: 40 mg Polyethylene Glycol (Miralax) 17 gm PO DAILY [facility] Last Admin: 02/28/19 09:13 Dose: 17 gm Prednisone (Prednisone) 40 mg PO WITHBREAKFAST [facility] Last Admin: 02/28/19 06:05 Dose: 40 mg Simvastatin (Zocor) 20 mg PO DAILY [facility] Last Admin: 02/28/19 09:13 Dose: 20 mg Tamsulosin HCl (Flomax) 0.4 mg PO BID [facility] Last Admin: 02/28/19 09:13 Dose: 0.4 mg Trazodone HCl (Trazodone) 25 mg PO BEDTIME [facility] Last Admin: 02/27/19 20:57 Dose: 25 mg Warfarin Sodium (Pharmacy To Dose - Warfarin) 1 dose .XX ASDIRECTED [facility] Discontinued Medications Acetaminophen (Tylenol) 650 mg PO NOW ONE Stop: 02/27/19 08:21 Last Admin: 02/27/19 09:05 Dose: 650 mg Albuterol/Ipratropium (Duoneb 3.0-0.5 Mg/3 Ml) 3 ml NEB ONETIME ONE Stop: 02/27/19 08:09 Last Admin: 02/27/19 09:13 Dose: 3 ml Bisacodyl (Dulcolax) 10 mg RECTAL ONETIME ONE Stop: 02/28/19 09:18 Hydromorphone HCl (Dilaudid) 0.25 mg IVPUSH ONETIME ONE Stop: 02/27/19 08:00 Last Admin: 02/27/19 09:05 Dose: 0.25 mg Sodium Chloride (Normal Saline) 500 mls @ 250 mls/hr IV .BOLUS ONE Stop: 02/27/19 11:55 Last Admin: 02/27/19 15:00 Dose: Not Given Magnesium Sulfate 4 gm/ Premix 50 mls @ 12.5 mls/hr IV ONETIME ONE Stop: 02/27/19 18:39 Last Admin: 02/27/19 15:02 Dose: 12.5 mls/hr Magnesium Hydroxide (Milk Of Magnesia) 30 ml PO ONETIME ONE Stop: 02/27/19 14:41 Last Admin: 02/27/19 15:04 Dose: 30 ml Magnesium Hydroxide (Milk Of Magnesia) 30 ml PO ONETIME ONE Stop: 02/28/19 06:01 Last Admin: 02/28/19 05:45 Dose: 30 ml Non-Formulary Medication (Acetaminophen/Diphenhydramine) 2 tab PO BEDTIME ANIKA Ondansetron HCl (Zofran) 4 mg IVPUSH ONETIME ONE Stop: 02/27/19 08:00 Last Admin: 02/27/19 09:05 Dose: 4 mg - Exam Quality Assessment: Supplemental Oxygen General: Alert, Oriented HEENT: Pupils Equal, Pupils Reactive Neck: Supple Lungs: Normal Respiratory Effort, Wheezing Cardiovascular: Regular Rate, Regular Rhythm GI/Abdominal Exam: Normal Bowel Sounds, Soft, Non-Tender, No Distention Extremities: Normal Inspection, Normal Range of Motion, Non-Tender, No Pedal Edema Skin: Warm, Dry, Intact Neurological: No New Focal Deficit Psy/Mental Status: Alert, Normal Affect, Normal Mood - Problem List & Annotations (1) Congestive heart failure SNOMED Code(s): 93966173 Code(s): I50.9 - HEART FAILURE, UNSPECIFIED Status: Acute Current Visit: Yes Qualifiers: Heart failure type: diastolic Heart failure chronicity: acute on chronic Qualified Code(s): I50.33 - Acute on chronic diastolic (congestive) heart failure (2) Constipation by delayed colonic transit SNOMED Code(s): 46747909 Code(s): K59.01 - SLOW TRANSIT CONSTIPATION Status: Acute Current Visit: Yes (3) Gouty arthritis of right great toe SNOMED Code(s): 6991847855239020 Code(s): M10.9 - GOUT, UNSPECIFIED Status: Acute Current Visit: Yes (4) COPD exacerbation SNOMED Code(s): 848098997 Code(s): J44.1 - CHRONIC OBSTRUCTIVE PULMONARY DISEASE W (ACUTE) EXACERBATION Status: Acute Current Visit: No - Problem List Review Problem List Initiated/Reviewed/Updated: Yes - My Orders Last 24 Hours: My Active Orders 02/27/19 12:48 Resuscitation Status Routine 02/27/19 14:23 Oxygen Therapy [RC] PRN Up ad Lucia [RC] ASDIRECTED VTE/DVT Education [RC] BID Vital Signs [RC] Q4HR Acetaminophen [Tylenol] 650 mg PO Q4H PRN Acetaminophen/HYDROcodone [[place] 325-5 MG] 1 tab PO Q4H PRN Bisacodyl [Dulcolax] 5 mg PO DAILY PRN Ondansetron [Zofran ODT] 4 mg PO Q4H PRN 02/27/19 14:28 Albuterol [Proventil Neb Soln] 2.5 mg NEB Q4H PRN Albuterol/Ipratropium [DuoNeb 3.0-0.5 MG/3 ML] 3 ml NEB Q6HRRT PRN 02/27/19 14:30 Pharmacy to Dose - Warfarin 1 dose .XX ASDIRECTED 02/27/19 14:35 RT Incentive Spirometry [RC] ASDIRECTED 02/27/19 14:40 predniSONE 40 mg PO WITHBREAKFAST 02/27/19 21:00 Budesonide [Pulmicort] 0.5 mg NEB BID Flecainide [Tambocor] 100 mg PO BID Tamsulosin [Flomax] 0.4 mg PO BID guaiFENesin [Mucinex] 600 mg PO BID traZODone 25 mg PO BEDTIME 02/27/19 22:45 Aspiration Precautions [RC] ASDIRECTED 02/27/19 Dinner Heart Healthy Diet [DIET] 02/28/19 09:00 Ezetimibe [Zetia] 10 mg PO DAILY Pantoprazole [ProTONIX] 40 mg PO DAILY Polyethylene Glycol 3350 [MiraLAX] 17 gm PO DAILY Simvastatin [Zocor] 20 mg PO DAILY 03/01/19 07:43 INR,PT,PROTHROMBIN TIME [COAG] DAILY 03/02/19 07:43 INR,PT,PROTHROMBIN TIME [COAG] DAILY 03/03/19 07:43 INR,PT,PROTHROMBIN TIME [COAG] DAILY 03/04/19 07:43 INR,PT,PROTHROMBIN TIME [COAG] DAILY - Plan Plan:: COPD exacerbation with hypoxia * Prednisone 40 mg daily start today. * DuoNeb's 4 times a day * Albuterol nebulizer when necessary * Assessment spirometry * Rocephin daily * Repeat chest x-ray in the morning Congestive heart failure * BNP is 1600. This appears to be stable over the last few months. * Prednisone may increase fluid and salt retention, therefore continue to follow and monitor closely * Continue Lasix at home dose and other home meds * Echocardiogram done on November 15, 2018 showed: 1. Left ventricular ejection fraction, by visual estimation, is 60-65%. 2. The visualized wall segments showed normal contractility, but not all gonzalez are well seen. 3. Aortic valve is structurally normal and tricuspid. 4. Mild mitral valve regurgitation. 5. The mitral valve is normal in structure. 6. Trace tricuspid valve regurgitation. Supratherapeutic INR * INR increased to almost 5 today. This is likely due to the dose of Coumadin and received Monday night. He has no active bleeding. * Daily INR * stated that they are going to go ahead and stop Coumadin and when his INR is less than 2 he will switch to Eliquis. Acute gouty flare-first episode * Patient may need definitive lowering of his uric acid as an outpatient. * Prednisone 40 mg daily should help with pain and swelling. * X-ray right foot Constipation * Milk of magnesia * MiraLAX CBC, CMP, mag, INR in the morning CODE STATUS: DNR/DNI Length of stay estimated around 2 days VTE prophylaxis with supratherapeutic INR
[2019-02-28] MEDS: Aluminum Hydroxide/Magnesium Hydroxide/Simethicone Susp 30 ML Cup PO PRN ×2 (16:33→20:45)
[2019-02-28] MEDS: traZODone 50 MG Tab PO SCH (20:44)
[2019-02-28] MEDS: Albuterol/Ipratropium 3.0-0.5 MG/3 ML Neb Soln NEB PRN (21:00)
[2019-02-28] MEDS: Acetaminophen 325 MG Tab PO PRN (23:33)
[2019-03-01] MEDS: Acetaminophen 325 MG Tab PO PRN (06:07)
[2019-03-01] MEDS: predniSONE 20 MG Tab PO SCH (06:07)
[2019-03-01] MEDS: Budesonide 0.5 MG/2 ML Neb Susp NEB SCH (08:09)
[2019-03-01] MEDS: Albuterol/Ipratropium 3.0-0.5 MG/3 ML Neb Soln NEB PRN (08:09)
[2019-03-01] MEDS: cefTRIAXone 2 GM in Sodium Chloride 0.9% 100 ML IV SCH (09:07)
[2019-03-01] MEDS: Simvastatin 20 MG Tab PO SCH (09:08)
[2019-03-01] MEDS: Flecainide 50 MG Tab PO SCH (09:08)
[2019-03-01] MEDS: Pantoprazole 40 MG Tab.CR PO SCH (09:08)
[2019-03-01] MEDS: Tamsulosin 0.4 MG Cap.ER PO SCH (09:08)
[2019-03-01] MEDS: guaiFENesin 600 MG Tab.ER PO SCH (09:08)
[2019-03-01] MEDS: Polyethylene Glycol 3350 Powder 17 GM Packet PO SCH (09:08)
[2019-03-01] MEDS: Ezetimibe 10 MG Tab PO SCH (09:08)
[2019-03-01 11:53] VITALS: BP 125/59
--- NOTE | 2019-03-01 12:27 | PCM.DCSUM1 ---
Discharge Summary - Hospital Course HPI Initial Comments: This 83-year-old male who lives at home with known congestive heart failure, COPD, paroxysmal atrial fibrillation, and recurrent pneumonia, return to the emergency room this morning secondary to weakness and cough. Patient was seen initially last night for abdominal pain and was given a laxative for constipation medications for reflux and dyspepsia, and ultimately sent home. When he got home he was weak and couldn't stand. This morning he had not improved and continued to be weak. When EMS arrived at his home he was found to have low oxygenation and then right foot and toe pain. Patient was brought back into the emergency room and kept on O2. He was found to have a white count of over 18,000, elevated uric acid, right first metatarsal redness, pain, and swelling, and abdominal x-ray consistent with constipation. Chest x-ray showed diffuse increased lung markings which appear to be chronic. Increased density within the left lung base believed to represent scarring as well as atelectasis. BNP was 1632, which appears to be stable from prior hospitalization in November. Lactic acid was negative at 1.0. Patient was started on IV fluids and given Rocephin. His INR was found to be elevated at 4.29 which was felt secondary to an underlying infection. In the emergency room his blood pressure did drop to 79/40 and his reports this is a common occurrence. Diagnosis: Stroke: No - Discharge Data Discharge Date: 03/01/19 Discharge Disposition: Home, Self-Care 01 Condition: Good - Discharge Diagnosis/Problem(s) (1) Congestive heart failure SNOMED Code(s): 05631704 ICD Code: I50.9 - HEART FAILURE, UNSPECIFIED Status: Acute Current Visit : Yes Qualifiers: Heart failure type: diastolic Heart failure chronicity: acute on chronic Qualified Code(s): I50.33 - Acute on chronic diastolic (congestive) heart failure (2) Constipation by delayed colonic transit SNOMED Code(s): 92682528 ICD Code: K59.01 - SLOW TRANSIT CONSTIPATION Status: Acute Current Visit : Yes (3) Gouty arthritis of right great toe SNOMED Code(s): 0074289817496632 ICD Code: M10.9 - GOUT, UNSPECIFIED Status: Acute Current Visit: Yes (4) COPD exacerbation SNOMED Code(s): 895507172 ICD Code: J44.1 - CHRONIC OBSTRUCTIVE PULMONARY DISEASE W (ACUTE) EXACERBATION Status: Acute Current Visit: No - Patient Summary/Data Consults: Consultations 03/01/19 08:23 OT Evaluation and Treatment [CONS] Routine PT Evaluation and Treatment [CONS] Routine - Patient Instructions Diet: Heart Healthy Diet Activity: As Tolerated Driving: Do Not Drive Showering/Bathing: May Shower Notify Provider of: Fever - Discharge Plan *PRESCRIPTION DRUG MONITORING PROGRAM REVIEWED*: Not Applicable *COPY OF PRESCRIPTION DRUG MONITORING REPORT IN PATIENT GET: Not Applicable Prescriptions/Med Rec: Amoxicillin/Clavulanate K [Augmentin 875-125 MG] 1 tab PO Q12H #8 tablet Apixaban [Eliquis] 2.5 mg PO Q12H #60 tablet predniSONE 40 mg PO WITHBREAKFAST #3 tablet Home Medications: Home Meds Ezetimibe [Zetia] 10 mg PO DAILY 02/27/15 [History] Omeprazole 20 mg PO DAILY 02/27/15 [History] Pravastatin [Pravachol] 40 mg PO DAILY 02/27/15 [History] Budesonide [Pulmicort] 0.5 mg NEB BID 11/20/16 [History] Flecainide [Tambocor] 100 mg PO BID 11/20/16 [History] Umeclidinium [place] [Incruse Ellipta*] 62.5 mcg INH DAILY 12/27/16 [History] Albuterol Sulfate 2.5 mg NEB Q4H PRN 08/23/18 [History] Ipratropium/Albuterol Sulfate [Iprat-Albut 0.5-3(2.5) MG/3 ML] 3 ml INH BID 04/25 [History] guaiFENesin [Mucinex] 600 mg PO BID 10/12/18 [History] Tamsulosin [Flomax] 0.4 mg PO DAILY 11/14/18 [History] Albuterol/Ipratropium [DuoNeb 3.0-0.5 MG/3 ML] 3 ml NEB Q6HRRT PRN neb [Rx] traZODone HCl [Trazodone HCl] 25 mg PO BEDTIME 02/26/19 [History] Docusate Sodium [Colace] 50 mg PO DAILY PRN 02/27/19 [History] Amoxicillin/Clavulanate K [Augmentin 875-125 MG] 1 tab PO Q12H #8 tablet [Rx] Apixaban [Eliquis] 2.5 mg PO Q12H #60 tablet 03/01/19 [Rx] predniSONE 40 mg PO WITHBREAKFAST #3 tablet 03/01/19 [Rx] Patient Handouts: Hypoxia, Gout, [id number] Referrals: Toribio Franco MD [Primary Care Provider] - 03/08/19 1:00 pm (Please follow-up with your primary care doctor, Dr. Franco, on MondayMarch 08 at 1: 00pm. ) - Discharge Summary/Plan Comment DC Time >30 min.: Yes Discharge Summary/Plan Comment: COPD exacerbation with hypoxia * Prednisone 40 mg daily for 5 days. * Augmentin 875 mg twice a day for 4 more days * Repeat chest x-ray in the morning Congestive heart failure * BNP is 1600. This appears to be stable over the last few months. * Prednisone may increase fluid and salt retention, therefore continue to follow and monitor closely * Continue Lasix at home dose and other home meds * Echocardiogram done on November 15, 2018 showed: 1. Left ventricular ejection fraction, by visual estimation, is 60-65%. 2. The visualized wall segments showed normal contractility, but not all gonzalez are well seen. 3. Aortic valve is structurally normal and tricuspid. 4. Mild mitral valve regurgitation. 5. The mitral valve is normal in structure. 6. Trace tricuspid valve regurgitation. Supratherapeutic INR * INR increased to almost 5 today. This is likely due to the dose of Coumadin and received Monday night. He has no active bleeding. * Next INR on Monday * stated that they are going to go ahead and stop Coumadin and when his INR is less than 2 he will switch to Eliquis. Acute gouty flare-first episode * Patient may need definitive lowering of his uric acid as an outpatient. * Prednisone 40 mg daily should help with pain and swelling. * X-ray right foot - neg for acute findings Constipation * Resolved - General Info Date of Service: 03/01/19 Admission Dx/Problem (Free Text: Admission Diagnosis/Problem Admission Diagnosis/Problem Acute febrile illness Subjective Update: February 28, 2019 Patient did well overnight. He feels much better and has more energy. His right foot is less painful and he has no complaints of shortness of breath. He still is coughing but the sputum is clear. patient has still not had a bowel movement. Echocardiogram done on November 15, 2018 showed: 1. Left ventricular ejection fraction, by visual estimation, is 60-65%. 2. The visualized wall segments showed normal contractility, but not all gonzalez are well seen. 3. Aortic valve is structurally normal and tricuspid. 4. Mild mitral valve regurgitation. 5. The mitral valve is normal in structure. 6. Trace tricuspid valve regurgitation. March 01, 2019 Patient has done well again. He has more energy today and minimal right great toe pain. He is off oxygen and is on room air. Functional Status: Reports: Pain Controlled - Review of Systems General: Reports: No Symptoms HEENT: Reports: No Symptoms Pulmonary: Reports: Cough. Denies: Shortness of Breath Cardiovascular: Denies: Chest Pain, Dyspnea on Exertion Gastrointestinal: Reports: No Symptoms. Denies: Abdominal Pain, Constipation Neurological: Reports: No Symptoms - Patient Data Vitals - Most Recent: Last Vital Signs Temp 97.7 F 03/01/19 11:23 Pulse 71 03/01/19 11:23 Resp 18 03/01/19 11:23 BP 125/59 L 03/01/19 11:23 Pulse Ox 92 L 03/01/19 11:23 Weight - Most Recent: 207 lb 6 oz I&O - Last 24 hours: Intake & Output 02/28/19 03/01/19 03/01/19 22:59 06:59 14:59 Intake Total 1400 300 540 Output Total 700 600 Balance 700 -300 540 Lab Results - Last 24 hrs: Laboratory Results - last 24 hr 03/01/19 03/01/19 03/01/19 Range/Units 04:45 04:45 04:55 WBC 11.30 H (4.23-9.07) K/mm3 RBC 4.03 L (4.63-6.08) M/mm3 Hgb 11.0 L (13.7-17.5) gm/L Hct 34.9 L (40.1-51.0) % MCV 86.6 (79.0-92.2) fl MCH 27.3 (25.7-32.2) pg MCHC 31.5 L (32.2-35.5) g/dl RDW Std Deviation 45.7 H (35.1-43.9) fL Plt Count 246 (163-337) K/mm3 MPV 8.7 L (9.4-12.3) fl Neut % (Auto) 79.6 H (34.0-67.9) % Lymph % (Auto) 11.6 L (21.8-53.1) % [place] % (Auto) 7.9 (5.3-12.2) % Eos % (Auto) 0.3 L (0.8-7.0) Baso % (Auto) 0.1 (0.1-1.2) % Neut # (Auto) 9.00 H (1.78-5.38) K/mm3 Lymph # (Auto) 1.31 L (1.32-3.57) K/mm3 [place] # (Auto) 0.89 H (0.30-0.82) K/mm3 Eos # (Auto) 0.03 L (0.04-0.54) K/mm3 Baso # (Auto) 0.01 (0.01-0.08) K/mm3 PT 42.9 H (9.5-12.1) SECONDS INR 4.05 Sodium 137 (136-145) mEq/L Potassium 4.6 (3.5-5.1) mEq/L Chloride 102 (98-107) mEq/L Carbon Dioxide 26 (21-32) mEq/L Anion Gap 13.6 (5-15) BUN 27 H (7-18) mg/dL Creatinine 1.6 H (0.7-1.3) mg/dL Est Cr Clr Drug Dosing 39.74 mL/min Estimated GFR (MDRD) 42 (>60) mL/min BUN/Creatinine Ratio 16.9 (14-18) Glucose 96 (83-115) mg/dL Calcium 9.0 (8.5-10.1) mg/dL Total Bilirubin 0.3 (0.2-1.0) mg/dL AST 22 (15-37) U/L ALT 18 (16-63) U/L Alkaline Phosphatase 83 (46-116) U/L Total Protein 6.7 (6.4-8.2) g/dl Albumin 2.9 L (3.4-5.0) g/dl Globulin 3.8 gm/dL Albumin/Globulin Ratio 0.8 L (1-2) MILLY Results - Last 24 hrs: Microbiology 02/27/19 08:25 Aerobic Blood Culture - Preliminary Blood - Venous NO GROWTH AFTER 2 DAYS Anaerobic Blood Culture - Preliminary NO GROWTH AFTER 2 DAYS 02/27/19 08:57 Aerobic Blood Culture - Preliminary Blood - Venous - Lab Draw NO GROWTH AFTER 2 DAYS Anaerobic Blood Culture - Preliminary NO GROWTH AFTER 2 DAYS Med Orders - Current: Current Medications Acetaminophen (Tylenol) 650 mg PO Q4H PRN PRN Reason: Pain (Mild 1-3)/fever Last Admin: 03/01/19 06:07 Dose: 650 mg Hydrocodone Bitart/Acetaminophen ([place] 325-5 Mg) 1 tab PO Q4H PRN PRN Reason: Pain (moderate 4-6) Al Hydroxide/Mg Hydroxide (Mag-Al Plus) 30 ml PO Q4H PRN PRN Reason: Heartburn Last Admin: 02/28/19 20:45 Dose: 30 ml Albuterol (Proventil Neb Soln) 2.5 mg NEB Q4H PRN PRN Reason: Shortness of Breath Albuterol/Ipratropium (Duoneb 3.0-0.5 Mg/3 Ml) 3 ml NEB Q6HRRT PRN PRN Reason: Shortness of Breath Last Admin: 03/01/19 08:09 Dose: 3 ml Bisacodyl (Dulcolax) 5 mg PO DAILY PRN PRN Reason: Constipation Last Admin: 02/27/19 15:05 Dose: 5 mg Budesonide (Pulmicort) 0.5 mg NEB BID [facility] Last Admin: 03/01/19 08:09 Dose: 0.5 mg Ezetimibe (Zetia) 10 mg PO DAILY [facility] Last Admin: 03/01/19 09:08 Dose: 10 mg Flecainide Acetate (Tambocor) 100 mg PO BID [facility] Last Admin: 03/01/19 09:08 Dose: 100 mg Guaifenesin (Mucinex) 600 mg PO BID [facility] Last Admin: 03/01/19 09:08 Dose: 600 mg Ceftriaxone Sodium 2 gm/ (Sodium Chloride) 100 mls @ 200 mls/hr IV Q24H [facility] Last Admin: 03/01/19 09:07 Dose: 200 mls/hr Ondansetron HCl (Zofran Odt) 4 mg PO Q4H PRN PRN Reason: nausea, able to take PO Pantoprazole Sodium (Protonix) 40 mg PO DAILY [facility] Last Admin: 03/01/19 09:08 Dose: 40 mg Polyethylene Glycol (Miralax) 17 gm PO DAILY [facility] Last Admin: 03/01/19 09:08 Dose: 17 gm Prednisone (Prednisone) 40 mg PO WITHBREAKFAST [facility] Last Admin: 03/01/19 06:07 Dose: 40 mg Simvastatin (Zocor) 20 mg PO DAILY [facility] Last Admin: 03/01/19 09:08 Dose: 20 mg Tamsulosin HCl (Flomax) 0.4 mg PO BID [facility] Last Admin: 03/01/19 09:08 Dose: 0.4 mg Trazodone HCl (Trazodone) 25 mg PO BEDTIME [facility] Last Admin: 02/28/19 20:44 Dose: 25 mg Discontinued Medications Acetaminophen (Tylenol) 650 mg PO NOW ONE Stop: 02/27/19 08:21 Last Admin: 02/27/19 09:05 Dose: 650 mg Albuterol/Ipratropium (Duoneb 3.0-0.5 Mg/3 Ml) 3 ml NEB ONETIME ONE Stop: 02/27/19 08:09 Last Admin: 02/27/19 09:13 Dose: 3 ml Bisacodyl (Dulcolax) 10 mg RECTAL ONETIME ONE Stop: 02/28/19 09:18 Last Admin: 02/28/19 10:38 Dose: 10 mg Hydromorphone HCl (Dilaudid) 0.25 mg IVPUSH ONETIME ONE Stop: 02/27/19 08:00 Last Admin: 02/27/19 09:05 Dose: 0.25 mg Sodium Chloride (Normal Saline) 1,000 mls @ 100 mls/hr IV ASDIRECTED [facility] Last Admin: 02/28/19 03:25 Dose: 100 mls/hr Sodium Chloride (Normal Saline) 500 mls @ 250 mls/hr IV .BOLUS ONE Stop: 02/27/19 11:55 Last Admin: 02/27/19 15:00 Dose: Not Given Magnesium Sulfate 4 gm/ Premix 50 mls @ 12.5 mls/hr IV ONETIME ONE Stop: 02/27/19 18:39 Last Admin: 02/27/19 15:02 Dose: 12.5 mls/hr Magnesium Hydroxide (Milk Of Magnesia) 30 ml PO ONETIME ONE Stop: 02/27/19 14:41 Last Admin: 02/27/19 15:04 Dose: 30 ml Magnesium Hydroxide (Milk Of Magnesia) 30 ml PO ONETIME ONE Stop: 02/28/19 06:01 Last Admin: 02/28/19 05:45 Dose: 30 ml Non-Formulary Medication (Acetaminophen/Diphenhydramine) 2 tab PO BEDTIME [facility] Ondansetron HCl (Zofran) 4 mg IVPUSH ONETIME ONE Stop: 02/27/19 08:00 Last Admin: 02/27/19 09:05 Dose: 4 mg Warfarin Sodium (Pharmacy To Dose - Warfarin) 1 dose .XX ASDIRECTED ANIKA - Exam Quality Assessment: Denies: Supplemental Oxygen General: Reports: Alert, Oriented HEENT: Reports: Pupils Equal Neck: Reports: Supple Lungs: Reports: Clear to Auscultation, Normal Respiratory Effort, Wheezing Cardiovascular: Reports: Regular Rate, Regular Rhythm Extremities: Normal Inspection, Pedal Edema Skin: Reports: Warm, Dry, Intact Neurological: Reports: No New Focal Deficit Psy/Mental Status: Reports: Alert, Normal Affect, Normal Mood
== END 2019-03-01 13:20 | disposition home or self-care (01) | DRG 291 ==
LOC: JD.ED 07:45 → JD.MS 11:54
PROVIDERS: ADMIT Family Medicine; ATTEND Family Medicine
DX: I13.0 Hypertensive heart and chronic kidney disease with heart failure and stage 1 through stage 4 chronic kidney disease, or unspecified chronic kidney disease (principal); I50.33 Acute on chronic diastolic (congestive) heart failure; J44.1 Chronic obstructive pulmonary disease with (acute) exacerbation; I48.0 Paroxysmal atrial fibrillation; K21.9 Gastro-esophageal reflux disease without esophagitis; K59.01 Slow transit constipation; H91.90 Unspecified hearing loss, unspecified ear; H54.7 Unspecified visual loss; E78.00 Pure hypercholesterolemia, unspecified; M10.9 Gout, unspecified; I95.2 Hypotension due to drugs; N18.3 Chronic kidney disease, stage 3 (moderate); M19.91 Primary osteoarthritis, unspecified site; Z85.118 Personal history of other malignant neoplasm of bronchus and lung; Z87.891 Personal history of nicotine dependence; Z79.899 Other long term (current) drug therapy; Z79.01 Long term (current) use of anticoagulants
CPT/HCPCS: 36415; 71045; 71045-26; 73620-26-RT; 73620-RT; 74018; 74018-26; 80053; 81001; 82553; 82962; 83605; 83735; 83880; 84484; 84550; 85007; 85025; 85027; 85610; 85652; 85730; 86140; 87040; 93005; 93010; 94640; 94760; 94761; 96361; 96365; 96375; 97110-GP; 97161-GP; 97165-GO; 99285; 99285-25; A9270-GY; J0696; J1170; J2405; J3475; J7030; J7040; J7620-GY

== ENCOUNTER 2019-07-26 17:54 | Inpatient (IN) | payer MEDICARE, BC ==
--- NOTE | 2019-07-26 19:40 | EDM.PDOC ---
ED HPI GENERAL MEDICAL PROBLEM - General Chief Complaint: Cardiovascular Problem Stated Complaint: WEAKNESS Time Seen by Provider: 07/26/19 19:40 - History of Present Illness INITIAL COMMENTS - FREE TEXT/NARRATIVE: 83-year-old male returns to the emergency room with increased weakness. patient was discharged from the hospital 2 days ago with pneumonia he has 1 more day of antibiotics to go. Today he got so weak he can't get himself out of the chair and walking is very difficult for him. He has not had any more fevers or chills or chest pain chest pressure his breathing is quite a bit better. - Related Data Allergies Allergy/AdvReac Type Severity Reaction Status Date / Time No Known Allergies Allergy Verified 07/27/19 00:55 Home Meds: Home Meds Ezetimibe [Zetia] 10 mg PO DAILY 02/27/15 [History] Omeprazole 20 mg PO DAILY 02/27/15 [History] Pravastatin [Pravachol] 40 mg PO DAILY 02/27/15 [History] Budesonide [Pulmicort] 0.5 mg NEB BID 11/20/16 [History] Flecainide [Tambocor] 100 mg PO BID 11/20/16 [History] Umeclidinium [place] [Incruse Ellipta*] 62.5 mcg INH DAILY 12/27/16 [History] guaiFENesin [Mucinex] 600 mg PO BID 10/12/18 [History] Tamsulosin [Flomax] 0.4 mg PO DAILY 11/14/18 [History] traZODone HCl [Trazodone HCl] 25 mg PO BEDTIME 02/26/19 [History] Apixaban [Eliquis] 2.5 mg PO Q12H #60 tablet 03/01/19 [Rx] Albuterol/Ipratropium [DuoNeb 3.0-0.5 MG/3 ML] 3 ml NEB Q4HR PRN 07/21/19 [ History] Allopurinol [Zyloprim] 100 mg PO DAILY 07/21/19 [History] Acetylcysteine [Mucomyst 20%] 1,000 mg INH Q6HR 3 Days #12 sdv 07/25/19 [Rx] Albuterol/Ipratropium [DuoNeb 3.0-0.5 MG/3 ML] 3 ml NEB Q8HR 2 Days #6 neb 07/25 [Rx] Nystatin [Nystatin Oral Syringe] 500,000 unit PO QID 8 Days syringe 07/25/19 [ Rx] levoFLOXacin [Levaquin] 750 mg PO Q48H 4 Days #2 tablet 07/25/19 [Rx] Past Medical History HEENT History: Reports: Hard of Hearing, Impaired Vision Other HEENT History: Wears glasss. Cardiovascular History: Reports: Afib, Heart Failure, High Cholesterol, Hypertension, Other (See Below) Other Cardiovascular History: Sinoatrial node dysfunction Respiratory History: Reports: COPD, Other (See Below) Other Respiratory History: Aspiration, left lung mass, respiratory arrest, hypoxia, cough Gastrointestinal History: Reports: Chronic Constipation, GERD, Hemorrhoids, Other (See Below) Other Gastrointestinal History: hiatal hernia discovered Genitourinary History: Reports: Other (See Below) Other Genitourinary History: Chronic kidney disease stage III, balanoposthitis, hypertrophy of prostate Musculoskeletal History: Reports: Arthritis Neurological History: Reports: Other (See Below) Other Neuro History: Acute encephalopathy Psychiatric History: Reports: None Endocrine/Metabolic History: Reports: None Hematologic History: Reports: None Immunologic History: Reports: None Oncologic (Cancer) History: Reports: Lung, Other (See Below) Other Oncologic History: Malignant neoplasm of bronchus/lung Dermatologic History: Reports: None - Infectious Disease History Infectious Disease History: Reports: MRSA Other Infectious Disease History: MRSA sputum (07/27) - Past Surgical History Head Surgeries/Procedures: Reports: None HEENT Surgical History: Reports: None Cardiovascular Surgical History: Reports: Cardiac Ablation, Other (See Below) Other Cardiovascular Surgeries/Procedures: cardioversion Respiratory Surgical History: Reports: Thoracotomy, Other (See Below) Other Respiratory Surgeries/Procedures: Right lung lobectomy, right thoracotomy GI Surgical History: Reports: None Male Surgical History: Reports: None Endocrine Surgical History: Reports: None Neurological Surgical History: Reports: None Musculoskeletal Surgical History: Reports: None Oncologic Surgical History: Reports: Lobectomy Dermatological Surgical History: Reports: None Social & Family History - Family History Family Medical History: Noncontributory - Caffeine Use Caffeine Use: Reports: Coffee - Living Situation & Occupation Living situation: Reports: , Other ([facility]) Occupation: Retired ED ROS GENERAL - Review of Systems Review Of Systems: See Below Constitutional: Reports: No Symptoms HEENT: Reports: No Symptoms Respiratory: Reports: Cough, Sputum Cardiovascular: Reports: No Symptoms Endocrine: Reports: No Symptoms GI/Abdominal: Reports: No Symptoms : Reports: No Symptoms Skin: Reports: No Symptoms Neurological: Reports: No Symptoms Psychiatric: Reports: No Symptoms ED EXAM, GENERAL - Physical Exam Exam: See Below Exam Limited By: No Limitations General Appearance: Alert, No Apparent Distress Eye Exam: Bilateral Eye: Normal Inspection Nose: Normal Inspection, Normal Mucosa, No Blood Throat/Mouth: Normal Inspection, Normal Lips, Normal Gums, Normal Oropharynx, Normal Voice, No Airway Compromise Head: Atraumatic, Normocephalic Neck: Normal Inspection. No: Lymphadenopathy (L), Lymphadenopathy (R) Respiratory/Chest: No Respiratory Distress, Normal Breath Sounds, Crackles, Other (He has crackles scattered throughout) GI/Abdominal: Normal Bowel Sounds, Soft, Non-Tender, No Organomegaly, No Distention, No Abnormal Bruit, No Mass Back Exam: Normal Inspection, Full Range of Motion. No: CVA Tenderness (L), CVA Tenderness (R) Neurological: Alert Psychiatric: Normal Affect, Normal Mood Skin Exam: Warm, Dry, Intact Course - Vital Signs Last Recorded V/S: Last Vital Signs Temp 37.1 C 07/26/19 18:09 Pulse 75 07/27/19 01:16 Resp 30 H 07/27/19 01:14 BP 141/100 H 07/27/19 01:14 Pulse Ox 93 L 07/27/19 01:16 - Orders/Labs/Meds Orders: Active Orders 24 hr Category Date Time Status EKG Documentation Completion [RC] STAT Care 07/26/19 20:07 Active RT Arterial Blood Gases, ABG [RC] Click to Edit Care 07/26/19 23:12 Active Chest 1V Frontal [CR] Stat Exams 07/26/19 20:07 Taken CULTURE BLOOD [BC] Stat Lab 07/26/19 23:17 Received CULTURE BLOOD [BC] Stat Lab 07/26/19 23:29 Received CULTURE URINE [RM] Stat Lab 07/26/19 21:00 Received PROCALCITONIN [REF] Stat Lab 07/26/19 23:46 Received Blood Culture x2 Reflex Set [OM.PC] Stat Oth 07/26/19 22:32 Ordered Medication Orders Acetaminophen (Tylenol) 650 mg PO Q4H PRN PRN Reason: Pain (Mild 1-3)/fever Acetylcysteine (Mucomyst 20%) 1,000 mg INH Q6HR [facility] Albuterol/Ipratropium (Duoneb 3.0-0.5 Mg/3 Ml) 3 ml NEB Q4H [facility] Stop: 07/27/19 21:01 Last Admin: 07/27/19 01:05 Dose: 3 ml Allopurinol (Zyloprim) 100 mg PO DAILY [facility] Apixaban (Eliquis) 2.5 mg PO Q12H [facility] Benzonatate (Tessalon Perles) 200 mg PO TID [facility] Budesonide (Pulmicort) 0.5 mg NEB BIDRT [facility] Guaifenesin (Mucinex) 600 mg PO BID [facility] Ketorolac Tromethamine (Toradol) 30 mg IV Q6H PRN PRN Reason: Pain (moderate 4-6) Stop: 08/01/19 00:15 Levofloxacin (Levaquin) 750 mg PO NOW [facility] Non-Formulary Medication (Flecainide) 100 mg PO BID [facility] Non-Formulary Medication (Omeprazole) 20 mg PO DAILY [facility] Non-Formulary Medication (Umeclidinium [place]) 62.5 mcg INH DAILY [facility] Nystatin (Nystatin Oral Syringe) 500,000 unit PO QID [facility] Ondansetron HCl (Zofran Odt) 4 mg PO Q6H PRN PRN Reason: nausea, able to take PO Ondansetron HCl (Zofran) 4 mg IV Q6H PRN PRN Reason: Nausea/Vomiting Oseltamivir Phosphate (Tamiflu) 30 mg PO BID [facility] Tamsulosin HCl (Flomax) 0.4 mg PO DAILY [facility] Trazodone HCl (Trazodone) 25 mg PO BEDTIME [facility] Labs: Laboratory Tests 07/26/19 07/26/19 07/26/19 Range/Units 21:03 21:04 21:04 WBC 16.66 H (4.23-9.07) K/mm3 RBC 5.07 (4.63-6.08) M/mm3 Hgb 12.8 L (13.7-17.5) gm/dl Hct 40.5 (40.1-51.0) % MCV 79.9 (79.0-92.2) fl MCH 25.2 L (25.7-32.2) pg MCHC 31.6 L (32.2-35.5) g/dl RDW Std Deviation 52.3 H (35.1-43.9) fL Plt Count 213 (163-337) K/mm3 MPV 8.6 L (9.4-12.3) fl Neutrophils % (Manual) 83 H (40-60) % Band Neutrophils % 0 (0-10) % Lymphocytes % (Manual) 8 L (20-40) % Atypical Lymphs % 0 % Monocytes % (Manual) 8 (2-10) % Eosinophils % (Manual) 0 L (0.8-7.0) % Basophils % (Manual) 0 L (0.2-1.2) Myelocytes % 1 Platelet Estimate Adequate Plt Morphology Comment Normal Hypochromasia 1+ slight Poikilocytosis 1+ slight Anisocytosis 1+ slight Microcytosis 2+ moderate RBC Morph Comment Not Reportable Sodium 138 (136-145) mEq/L Potassium 3.9 (3.5-5.1) mEq/L Chloride 104 (98-107) mEq/L Carbon Dioxide 28 (21-32) mEq/L Anion Gap 9.9 (5-15) BUN 43 H (7-18) mg/dL Creatinine 1.7 H (0.7-1.3) mg/dL Est Cr Clr Drug Dosing 37.41 mL/min Estimated GFR (MDRD) 39 (>60) mL/min BUN/Creatinine Ratio 25.3 H (14-18) Glucose 99 (83-115) mg/dL Lactic Acid (0.4-2.0) mmol/L Calcium 8.7 (8.5-10.1) mg/dL Phosphorus (2.6-4.7) mg/dL Magnesium (1.8-2.4) mg/dl Total Bilirubin 0.5 (0.2-1.0) mg/dL AST 19 (15-37) U/L ALT 57 (16-63) U/L Alkaline Phosphatase 130 H (46-116) U/L Troponin I < 0.017 (0.00-0.056) ng/mL NT-Pro-B Natriuret Pep (0-450) pg/mL Total Protein 6.8 (6.4-8.2) g/dl Albumin 3.1 L (3.4-5.0) g/dl Globulin 3.7 gm/dL Albumin/Globulin Ratio 0.8 L (1-2) Urine Color Yellow (Yellow) Urine Appearance Clear (Clear) Urine pH 5.5 (5.0-8.0) Ur Specific [place] 1.020 (1.005-1.030) Urine Protein 1+ H (Negative) Urine Glucose (UA) Negative (Negative) Urine Ketones Negative (Negative) Urine Occult Blood 2+ H (Negative) Urine Nitrite Negative (Negative) Urine Bilirubin Negative (Negative) Urine Urobilinogen 0.2 (0.2-1.0) Ur Leukocyte Esterase 1+ H (Negative) Urine RBC 5-10 H (0-5) /hpf Urine WBC 5-10 H (0-5) /hpf Ur Squamous Epith Cells 0-5 (0-5) /hpf Urine Bacteria Few (FEW) /hpf Urine Mucus Few (FEW) /hpf 07/26/19 07/26/19 07/26/19 Range/Units 21:04 23:17 23:46 WBC (4.23-9.07) K/mm3 RBC (4.63-6.08) M/mm3 Hgb (13.7-17.5) gm/dl Hct (40.1-51.0) % MCV (79.0-92.2) fl MCH (25.7-32.2) pg MCHC (32.2-35.5) g/dl RDW Std Deviation (35.1-43.9) fL Plt Count (163-337) K/mm3 MPV (9.4-12.3) fl Neutrophils % (Manual) (40-60) % Band Neutrophils % (0-10) % Lymphocytes % (Manual) (20-40) % Atypical Lymphs % % Monocytes % (Manual) (2-10) % Eosinophils % (Manual) (0.8-7.0) % Basophils % (Manual) (0.2-1.2) Myelocytes % Platelet Estimate Plt Morphology Comment Hypochromasia Poikilocytosis Anisocytosis Microcytosis RBC Morph Comment Sodium (136-145) mEq/L Potassium (3.5-5.1) mEq/L Chloride (98-107) mEq/L Carbon Dioxide (21-32) mEq/L Anion Gap (5-15) BUN (7-18) mg/dL Creatinine (0.7-1.3) mg/dL Est Cr Clr Drug Dosing mL/min Estimated GFR (MDRD) (>60) mL/min BUN/Creatinine Ratio (14-18) Glucose (83-115) mg/dL Lactic Acid 0.9 (0.4-2.0) mmol/L Calcium (8.5-10.1) mg/dL Phosphorus 3.1 (2.6-4.7) mg/dL Magnesium 2.0 (1.8-2.4) mg/dl Total Bilirubin (0.2-1.0) mg/dL AST (15-37) U/L ALT (16-63) U/L Alkaline Phosphatase (46-116) U/L Troponin I (0.00-0.056) ng/mL NT-Pro-B Natriuret Pep 857 H (0-450) pg/mL Total Protein (6.4-8.2) g/dl Albumin (3.4-5.0) g/dl Globulin gm/dL Albumin/Globulin Ratio (1-2) Urine Color (Yellow) Urine Appearance (Clear) Urine pH (5.0-8.0) Ur Specific [place] (1.005-1.030) Urine Protein (Negative) Urine Glucose (UA) (Negative) Urine Ketones (Negative) Urine Occult Blood (Negative) Urine Nitrite (Negative) Urine Bilirubin (Negative) Urine Urobilinogen (0.2-1.0) Ur Leukocyte Esterase (Negative) Urine RBC (0-5) /hpf Urine WBC (0-5) /hpf Ur Squamous Epith Cells (0-5) /hpf Urine Bacteria (FEW) /hpf Urine Mucus (FEW) /hpf Meds: Medications Generic Name Dose Route Start Last Admin Trade Name Freq PRN Reason Stop Dose Admin Acetaminophen 650 mg 07/27/19 00:14 Tylenol PO Q4H PRN Pain (Mild 1-3)/fever Acetylcysteine 1,000 mg 07/27/19 06:00 Mucomyst 20% INH Q6HR [facility] Albuterol/Ipratropium 3 ml 07/27/19 01:00 07/27/19 01:05 Duoneb 3.0-0.5 Mg/3 Ml NEB 07/27/19 21:01 3 ml Q4H ANIKA Administration Allopurinol 100 mg 07/27/19 09:00 Zyloprim PO DAILY [facility] Apixaban 2.5 mg 07/27/19 00:30 Eliquis PO Q12H [facility] Benzonatate 200 mg 07/27/19 09:00 Tessalon [place] PO TID [facility] Budesonide 0.5 mg 07/27/19 06:00 Pulmicort NEB BIDRT [facility] Guaifenesin 600 mg 07/27/19 09:00 Mucinex PO BID [facility] Ketorolac Tromethamine 30 mg 07/27/19 00:14 Toradol IV 08/01/19 00:15 Q6H PRN Pain (moderate 4-6) Levofloxacin 750 mg 07/27/19 09:00 Levaquin PO NOW [facility] Non-Formulary Medication 100 mg 07/27/19 09:00 Flecainide PO BID [facility] Non-Formulary Medication 20 mg 07/27/19 09:00 Omeprazole PO DAILY [facility] Non-Formulary Medication 62.5 mcg 07/27/19 09:00 Umeclidinium [place] INH DAILY [facility] Nystatin 500,000 unit 07/27/19 09:00 Nystatin Oral Syringe PO QID [facility] Ondansetron HCl 4 mg 07/27/19 00:14 Zofran Odt PO Q6H PRN nausea, able to take PO Ondansetron HCl 4 mg 07/27/19 00:14 Zofran IV Q6H PRN Nausea/Vomiting Oseltamivir Phosphate 30 mg 07/27/19 09:00 Tamiflu PO BID [facility] Tamsulosin HCl 0.4 mg 07/27/19 09:00 Flomax PO DAILY [facility] Trazodone HCl 25 mg 07/27/19 21:00 Trazodone PO BEDTIME [facility] Discontinued Medications Generic Name Dose Route Start Last Admin Trade Name Freq PRN Reason Stop Dose Admin Albuterol/Ipratropium 3 ml 07/27/19 00:15 07/27/19 01:24 Duoneb 3.0-0.5 Mg/3 Ml NEB 07/27/19 20:16 Not Given Q4H [facility] - Re-Assessments/Exams Free Text/Narrative Re-Assessment/Exam: 07/27/19 01:49 Return evaluation showed a white count that gone from his most recent in-house ones. Chest x-ray looks a little better. Urine might have some going on but given a still on antibiotics I highly unlikely urine culture and blood cultures are pending. Case discussed with Dr. Gibbons who will assume care and put the patient back on observation 07/27/19 01:51 Departure - Departure Time of Disposition: 00:37 Disposition: Refer to Observation Clinical Impression: Weakness - My Orders Last 24 Hours: My Active Orders 07/26/19 20:07 EKG Documentation Completion [RC] STAT Chest 1V Frontal [CR] Stat 07/26/19 21:00 CULTURE URINE [RM] Stat 07/26/19 22:32 Blood Culture x2 Reflex Set [OM.PC] Stat 07/26/19 23:17 CULTURE BLOOD [BC] Stat 07/26/19 23:29 CULTURE BLOOD [BC] Stat - Assessment/Plan Last 24 Hours: My Active Orders 07/26/19 20:07 EKG Documentation Completion [RC] STAT Chest 1V Frontal [CR] Stat 07/26/19 21:00 CULTURE URINE [RM] Stat 07/26/19 22:32 Blood Culture x2 Reflex Set [OM.PC] Stat 07/26/19 23:17 CULTURE BLOOD [BC] Stat 07/26/19 23:29 CULTURE BLOOD [BC] Stat
[2019-07-27] MEDS ORDERED: Ondansetron 4 MG Tab.DIS PO PRN (00:14)
[2019-07-27] MEDS ORDERED: Ketorolac 30 MG/ML SDV IV PRN (00:14)
[2019-07-27] MEDS ORDERED: Albuterol/Ipratropium 3.0-0.5 MG/3 ML Neb Soln NEB SCH ×2 (00:15→01:00)
[2019-07-27] MEDS ORDERED: Apixaban 2.5 MG Tab PO SCH (00:30)
[2019-07-27] MEDS: APIXABAN 2.5 MG PO SCH ×3 (03:03→21:12)
[2019-07-27] MEDS: ACETYLCYSTEINE INH SCH ×3 (05:33→17:22)
[2019-07-27] MEDS: Albuterol/Ipratropium 3.0-0.5 MG/3 ML Neb Soln**OWN MED NEB SCH ×5 (05:38→20:00)
[2019-07-27] MEDS ORDERED: Acetylcysteine 20% 200 MG/ML 4 ML Nebulizer Soln SDV INH SCH (06:00)
[2019-07-27] MEDS ORDERED: Budesonide 0.5 MG/2 ML Neb Susp NEB SCH (06:00)
[2019-07-27] MEDS ORDERED: Budesonide 0.5 MG/2 ML Neb Susp**OWN MED NEB SCH (06:00)
[2019-07-27] MEDS ORDERED: Ketorolac 15 MG/ML SDV IVPUSH PRN (06:20)
[2019-07-27] MEDS ORDERED: Ketorolac 15 MG/ML SDV IVPUSH SCH (06:30)
--- NOTE | 2019-07-27 08:23 | CR ---
Chest: Portable view of the chest was obtained. Comparison: Prior chest x-ray of 07/22/19. Scarring is seen within the left lung base. Lung markings are mildly increased which also are stable. Lesser scarring is seen within the right lung base which is stable. Heart size is felt to be within normal limits for portable technique. Tortuous thoracic aorta is seen. Mild degenerative change is scattered within the spine. Impression: 1. Findings as described above which appear stable from prior chest x-ray. 2. Nothing acute is appreciated. Diagnostic code #2
--- NOTE | 2019-07-27 08:25 | PCM.HP.2 ---
H&P History of Present Illness - General Date of Service: 07/26/19 Admit Problem/Dx: Admission Diagnosis/Problem Admission Diagnosis/Problem Weakness - History of Present Illness Initial Comments - Free Text/Narative: This is an 83-year-old male with past medical history of recent admission for community-acquired pneumonia, heart failure, atrial fibrillation and hypertension who comes to the ED complaining of severe weakness. As per patient and he was feeling fine on discharge (07/25) however 16 at home they noticed patient was having an extremely difficult time getting up from a chair and walking. Once noticed that his weakness was worsening she decided to come back to the emergency department for further evaluation. During previous admission patient was found to have pneumonia secondary to pansensitive Klebsiella as well as bacteremia. Started on levofloxacin. Discharged to complete 2 more doses with a total of 7 days. Repeat blood cultures were reported negative 1 day prior to discharge - Related Data Allergies/Adverse Reactions: Allergies Allergy/AdvReac Type Severity Reaction Status Date / Time No Known Allergies Allergy Verified 07/27/19 00:55 Home Medications: Home Meds Ezetimibe [Zetia] 10 mg PO DAILY 02/27/15 [History] Omeprazole 20 mg PO DAILY 02/27/15 [History] Pravastatin [Pravachol] 40 mg PO DAILY 02/27/15 [History] Budesonide [Pulmicort] 0.5 mg NEB BID 11/20/16 [History] Flecainide [Tambocor] 100 mg PO BID 11/20/16 [History] Umeclidinium [place] [Incruse Ellipta*] 62.5 mcg INH DAILY 12/27/16 [History] guaiFENesin [Mucinex] 600 mg PO BID 10/12/18 [History] Tamsulosin [Flomax] 0.4 mg PO DAILY 11/14/18 [History] traZODone HCl [Trazodone HCl] 25 mg PO BEDTIME 02/26/19 [History] Apixaban [Eliquis] 2.5 mg PO Q12H #60 tablet 03/01/19 [Rx] Albuterol/Ipratropium [DuoNeb 3.0-0.5 MG/3 ML] 3 ml NEB Q4HR PRN 07/21/19 [ History] Allopurinol [Zyloprim] 100 mg PO DAILY 07/21/19 [History] Acetylcysteine [Mucomyst 20%] 1,000 mg INH Q6HR 3 Days #12 sdv 07/25/19 [Rx] Albuterol/Ipratropium [DuoNeb 3.0-0.5 MG/3 ML] 3 ml NEB Q8HR 2 Days #6 neb 07/25 [Rx] Nystatin [Nystatin Oral Syringe] 500,000 unit PO QID 8 Days syringe 07/25/19 [ Rx] levoFLOXacin [Levaquin] 750 mg PO Q48H 4 Days #2 tablet 07/25/19 [Rx] Past Medical History HEENT History: Reports: Hard of Hearing, Impaired Vision Other HEENT History: Wears glasss. Cardiovascular History: Reports: Afib, Heart Failure, High Cholesterol, Hypertension, Other (See Below) Other Cardiovascular History: Sinoatrial node dysfunction Respiratory History: Reports: COPD, Other (See Below) Other Respiratory History: Aspiration, left lung mass, respiratory arrest, hypoxia, cough Gastrointestinal History: Reports: Chronic Constipation, GERD, Hemorrhoids, Other (See Below) Other Gastrointestinal History: hiatal hernia discovered Genitourinary History: Reports: Other (See Below) Other Genitourinary History: Chronic kidney disease stage III, balanoposthitis, hypertrophy of prostate Musculoskeletal History: Reports: Arthritis Neurological History: Reports: Other (See Below) Other Neuro History: Acute encephalopathy Psychiatric History: Reports: None Endocrine/Metabolic History: Reports: None Hematologic History: Reports: None Immunologic History: Reports: None Oncologic (Cancer) History: Reports: Lung, Other (See Below) Other Oncologic History: Malignant neoplasm of bronchus/lung Dermatologic History: Reports: None - Infectious Disease History Infectious Disease History: Reports: MRSA Other Infectious Disease History: MRSA sputum (07/27) - Past Surgical History Head Surgeries/Procedures: Reports: None HEENT Surgical History: Reports: None Cardiovascular Surgical History: Reports: Cardiac Ablation, Other (See Below) Other Cardiovascular Surgeries/Procedures: cardioversion Respiratory Surgical History: Reports: Thoracotomy, Other (See Below) Other Respiratory Surgeries/Procedures: Right lung lobectomy, right thoracotomy GI Surgical History: Reports: None Male Surgical History: Reports: None Endocrine Surgical History: Reports: None Neurological Surgical History: Reports: None Musculoskeletal Surgical History: Reports: None Oncologic Surgical History: Reports: Lobectomy Dermatological Surgical History: Reports: None Social & Family History - Family History Family Medical History: Noncontributory - Tobacco Use Smoking Status *Q: Former Smoker Used Tobacco, but Quit: Yes Month/Year Tobacco Last Used: 2004 - Caffeine Use Caffeine Use: Reports: Coffee - Recreational Drug Use Recreational Drug Use: No - Living Situation & Occupation Living situation: Reports: , Other ([facility]) Occupation: Retired H&P Review of Systems - Review of Systems: Review Of Systems: See Below General: Reports: Malaise, Weakness, Fatigue HEENT: Reports: Hearing Changes. Denies: Ear Pain, Eye Pain, Headaches, Post Nasal Drip, Sinus Congestion, Sore Throat Pulmonary: Reports: Shortness of Breath, Cough, Sputum. Denies: Wheezing, Pleuritic Chest Pain, Hemoptysis Cardiovascular: Reports: Dyspnea on Exertion. Denies: Chest Pain, Palpitations , Orthopnea, PND, Edema, Lightheadedness, Syncope Gastrointestinal: Denies: Abdominal Pain, Anorexia, Black Stool, Bloody Stool, Constipation, Diarrhea, Decreased Appetite, Difficulty Swallowing Genitourinary: Reports: Incontinence. Denies: Dysuria, Frequency, Burning, Pain , Urgency Musculoskeletal: Denies: Joint Pain, Joint Swelling, Muscle Pain Skin: Denies: Cyanosis, Jaundice, Mottled, Pallor, Diaphoresis, Dryness, Bruising, Pruritis, Rash, Erythema, Wound Psychiatric: Denies: Confusion, Depression, Mood Lability, Anxiety Neurological: Denies: Confusion, Dizziness, Headache, Numbness Exam - Exam Exam: See Below - Vital Signs Vital Signs: Last Vital Signs Temp 37.0 C 07/27/19 04:00 Pulse 75 07/27/19 01:16 Resp 30 H 07/27/19 01:14 BP 109/56 L 07/27/19 01:53 Pulse Ox 93 L 07/27/19 05:53 Weight: 89.267 kg - Exam Quality Assessment: Supplemental Oxygen General: Alert, Oriented, Cooperative, Moderate Distress HEENT: Conjunctiva Clear, EACs Clear, EOMI, Mucosa Moist & [place], Nares Patent, Normal Nasal Septum, Posterior Pharynx Clear, Pupils Equal, Pupils Reactive, TMs Clear. No: Hearing Intact Neck: Supple, Trachea Midline. No: +2 Carotid Pulse wo Bruit, Lymphadenopathy, Carotid Bruit Lungs: Normal Respiratory Effort, Decreased Breath Sounds, Crackles, Rales, Wheezing Cardiovascular: Regular Rate, Irregular Rhythm. No: Systolic Murmur, Diastolic Murmur, Rubs, Gallop/S3, Gallop/S4 GI/Abdominal Exam: Normal Bowel Sounds, Soft, Non-Tender, No Organomegaly, No Distention. No: Guarding, Rebound Back Exam: Normal Inspection. No: CVA Tenderness (L), CVA Tenderness (R) Extremities: Normal Inspection, No Pedal Edema Skin: Warm, Intact - Patient Data Lab Results Last 24 hrs: Laboratory Results - last 24 hr 07/26/19 07/26/19 07/26/19 Range/Units 21:03 21:04 21:04 WBC 16.66 H (4.23-9.07) K/mm3 RBC 5.07 (4.63-6.08) M/mm3 Hgb 12.8 L (13.7-17.5) gm/dl Hct 40.5 (40.1-51.0) % MCV 79.9 (79.0-92.2) fl MCH 25.2 L (25.7-32.2) pg MCHC 31.6 L (32.2-35.5) g/dl RDW Std Deviation 52.3 H (35.1-43.9) fL Plt Count 213 (163-337) K/mm3 MPV 8.6 L (9.4-12.3) fl Neut % (Auto) (34.0-67.9) % Lymph % (Auto) (21.8-53.1) % [place] % (Auto) (5.3-12.2) % Eos % (Auto) (0.8-7.0) Baso % (Auto) (0.1-1.2) % Neut # (Auto) (1.78-5.38) K/mm3 Lymph # (Auto) (1.32-3.57) K/mm3 [place] # (Auto) (0.30-0.82) K/mm3 Eos # (Auto) (0.04-0.54) K/mm3 Baso # (Auto) (0.01-0.08) K/mm3 Neutrophils % (Manual) 83 H (40-60) % Band Neutrophils % 0 (0-10) % Lymphocytes % (Manual) 8 L (20-40) % Atypical Lymphs % 0 % Monocytes % (Manual) 8 (2-10) % Eosinophils % (Manual) 0 L (0.8-7.0) % Basophils % (Manual) 0 L (0.2-1.2) Myelocytes % 1 Manual Slide Review Platelet Estimate Adequate Plt Morphology Comment Normal Hypochromasia 1+ slight Poikilocytosis 1+ slight Anisocytosis 1+ slight Microcytosis 2+ moderate RBC Morph Comment Not Reportable Puncture Site ABG pH (7.35-7.45) ABG pCO2 (35.0-45.0) mmHg ABG pO2 (80.0-100.0) mmHg ABG HCO3 (22.0-26.0) meq/L ABG O2 Saturation (96.0-97.0) % ABG Base Excess (-2-2.0) Henry Test O2 Delivery Device Oxygen Flow Rate FiO2 (21.00-100.00) % Sodium 138 (136-145) mEq/L Potassium 3.9 (3.5-5.1) mEq/L Chloride 104 (98-107) mEq/L Carbon Dioxide 28 (21-32) mEq/L Anion Gap 9.9 (5-15) BUN 43 H (7-18) mg/dL Creatinine 1.7 H (0.7-1.3) mg/dL Est Cr Clr Drug Dosing 37.41 mL/min Estimated GFR (MDRD) 39 (>60) mL/min BUN/Creatinine Ratio 25.3 H (14-18) Glucose 99 (83-115) mg/dL Lactic Acid (0.4-2.0) mmol/L Calcium 8.7 (8.5-10.1) mg/dL Phosphorus (2.6-4.7) mg/dL Magnesium (1.8-2.4) mg/dl Total Bilirubin 0.5 (0.2-1.0) mg/dL AST 19 (15-37) U/L ALT 57 (16-63) U/L Alkaline Phosphatase 130 H (46-116) U/L Troponin I < 0.017 (0.00-0.056) ng/mL NT-Pro-B Natriuret Pep (0-450) pg/mL Total Protein 6.8 (6.4-8.2) g/dl Albumin 3.1 L (3.4-5.0) g/dl Globulin 3.7 gm/dL Albumin/Globulin Ratio 0.8 L (1-2) Urine Color Yellow (Yellow) Urine Appearance Clear (Clear) Urine pH 5.5 (5.0-8.0) Ur Specific [place] 1.020 (1.005-1.030) Urine Protein 1+ H (Negative) Urine Glucose (UA) Negative (Negative) Urine Ketones Negative (Negative) Urine Occult Blood 2+ H (Negative) Urine Nitrite Negative (Negative) Urine Bilirubin Negative (Negative) Urine Urobilinogen 0.2 (0.2-1.0) Ur Leukocyte Esterase 1+ H (Negative) Urine RBC 5-10 H (0-5) /hpf Urine WBC 5-10 H (0-5) /hpf Ur Squamous Epith Cells 0-5 (0-5) /hpf Urine Bacteria Few (FEW) /hpf Urine Mucus Few (FEW) /hpf 07/26/19 07/26/19 07/26/19 Range/Units 21:04 23:17 23:46 WBC (4.23-9.07) K/mm3 RBC (4.63-6.08) M/mm3 Hgb (13.7-17.5) gm/dl Hct (40.1-51.0) % MCV (79.0-92.2) fl MCH (25.7-32.2) pg MCHC (32.2-35.5) g/dl RDW Std Deviation (35.1-43.9) fL Plt Count (163-337) K/mm3 MPV (9.4-12.3) fl Neut % (Auto) (34.0-67.9) % Lymph % (Auto) (21.8-53.1) % [place] % (Auto) (5.3-12.2) % Eos % (Auto) (0.8-7.0) Baso % (Auto) (0.1-1.2) % Neut # (Auto) (1.78-5.38) K/mm3 Lymph # (Auto) (1.32-3.57) K/mm3 [place] # (Auto) (0.30-0.82) K/mm3 Eos # (Auto) (0.04-0.54) K/mm3 Baso # (Auto) (0.01-0.08) K/mm3 Neutrophils % (Manual) (40-60) % Band Neutrophils % (0-10) % Lymphocytes % (Manual) (20-40) % Atypical Lymphs % % Monocytes % (Manual) (2-10) % Eosinophils % (Manual) (0.8-7.0) % Basophils % (Manual) (0.2-1.2) Myelocytes % Manual Slide Review Platelet Estimate Plt Morphology Comment Hypochromasia Poikilocytosis Anisocytosis Microcytosis RBC Morph Comment Puncture Site ABG pH (7.35-7.45) ABG pCO2 (35.0-45.0) mmHg ABG pO2 (80.0-100.0) mmHg ABG HCO3 (22.0-26.0) meq/L ABG O2 Saturation (96.0-97.0) % ABG Base Excess (-2-2.0) Henry Test O2 Delivery Device Oxygen Flow Rate FiO2 (21.00-100.00) % Sodium (136-145) mEq/L Potassium (3.5-5.1) mEq/L Chloride (98-107) mEq/L Carbon Dioxide (21-32) mEq/L Anion Gap (5-15) BUN (7-18) mg/dL Creatinine (0.7-1.3) mg/dL Est Cr Clr Drug Dosing mL/min Estimated GFR (MDRD) (>60) mL/min BUN/Creatinine Ratio (14-18) Glucose (83-115) mg/dL Lactic Acid 0.9 (0.4-2.0) mmol/L Calcium (8.5-10.1) mg/dL Phosphorus 3.1 (2.6-4.7) mg/dL Magnesium 2.0 (1.8-2.4) mg/dl Total Bilirubin (0.2-1.0) mg/dL AST (15-37) U/L ALT (16-63) U/L Alkaline Phosphatase (46-116) U/L Troponin I (0.00-0.056) ng/mL NT-Pro-B Natriuret Pep 857 H (0-450) pg/mL Total Protein (6.4-8.2) g/dl Albumin (3.4-5.0) g/dl Globulin gm/dL Albumin/Globulin Ratio (1-2) Urine Color (Yellow) Urine Appearance (Clear) Urine pH (5.0-8.0) Ur Specific [place] (1.005-1.030) Urine Protein (Negative) Urine Glucose (UA) (Negative) Urine Ketones (Negative) Urine Occult Blood (Negative) Urine Nitrite (Negative) Urine Bilirubin (Negative) Urine Urobilinogen (0.2-1.0) Ur Leukocyte Esterase (Negative) Urine RBC (0-5) /hpf Urine WBC (0-5) /hpf Ur Squamous Epith Cells (0-5) /hpf Urine Bacteria (FEW) /hpf Urine Mucus (FEW) /hpf 07/27/19 07/27/19 07/27/19 Range/Units 01:24 04:23 04:23 WBC 14.50 H (4.23-9.07) K/mm3 RBC 4.56 L (4.63-6.08) M/mm3 Hgb 11.6 L (13.7-17.5) gm/dl Hct 36.9 L (40.1-51.0) % MCV 80.9 (79.0-92.2) fl MCH 25.4 L (25.7-32.2) pg MCHC 31.4 L (32.2-35.5) g/dl RDW Std Deviation 53.1 H (35.1-43.9) fL Plt Count 227 (163-337) K/mm3 MPV 9.3 L (9.4-12.3) fl Neut % (Auto) 75.4 H (34.0-67.9) % Lymph % (Auto) 8.3 L (21.8-53.1) % [place] % (Auto) 10.8 (5.3-12.2) % Eos % (Auto) 0.4 L (0.8-7.0) Baso % (Auto) 0.2 (0.1-1.2) % Neut # (Auto) 10.93 H (1.78-5.38) K/mm3 Lymph # (Auto) 1.21 L (1.32-3.57) K/mm3 [place] # (Auto) 1.56 H (0.30-0.82) K/mm3 Eos # (Auto) 0.06 (0.04-0.54) K/mm3 Baso # (Auto) 0.03 (0.01-0.08) K/mm3 Neutrophils % (Manual) (40-60) % Band Neutrophils % (0-10) % Lymphocytes % (Manual) (20-40) % Atypical Lymphs % % Monocytes % (Manual) (2-10) % Eosinophils % (Manual) (0.8-7.0) % Basophils % (Manual) (0.2-1.2) Myelocytes % Manual Slide Review Abnormal smear Platelet Estimate Plt Morphology Comment Hypochromasia Poikilocytosis Anisocytosis Microcytosis RBC Morph Comment Puncture Site Lt radial ABG pH 7.49 H (7.35-7.45) ABG pCO2 34.9 L (35.0-45.0) mmHg ABG pO2 57.0 L (80.0-100.0) mmHg ABG HCO3 26.6 H (22.0-26.0) meq/L ABG O2 Saturation 87.7 L (96.0-97.0) % ABG Base Excess 3.8 H (-2-2.0) Henry Test Positive O2 Delivery Device Nasal cannula Oxygen Flow Rate 1.5 FiO2 0.00 L (21.00-100.00) % Sodium 141 (136-145) mEq/L Potassium 3.8 (3.5-5.1) mEq/L Chloride 105 (98-107) mEq/L Carbon Dioxide 26 (21-32) mEq/L Anion Gap 13.8 (5-15) BUN 39 H (7-18) mg/dL Creatinine 1.8 H (0.7-1.3) mg/dL Est Cr Clr Drug Dosing 35.33 mL/min Estimated GFR (MDRD) 36 (>60) mL/min BUN/Creatinine Ratio 21.7 H (14-18) Glucose 113 (83-115) mg/dL Lactic Acid (0.4-2.0) mmol/L Calcium 8.4 L (8.5-10.1) mg/dL Phosphorus 3.0 (2.6-4.7) mg/dL Magnesium 1.9 (1.8-2.4) mg/dl Total Bilirubin (0.2-1.0) mg/dL AST (15-37) U/L ALT (16-63) U/L Alkaline Phosphatase (46-116) U/L Troponin I (0.00-0.056) ng/mL NT-Pro-B Natriuret Pep (0-450) pg/mL Total Protein (6.4-8.2) g/dl Albumin (3.4-5.0) g/dl Globulin gm/dL Albumin/Globulin Ratio (1-2) Urine Color (Yellow) Urine Appearance (Clear) Urine pH (5.0-8.0) Ur Specific [place] (1.005-1.030) Urine Protein (Negative) Urine Glucose (UA) (Negative) Urine Ketones (Negative) Urine Occult Blood (Negative) Urine Nitrite (Negative) Urine Bilirubin (Negative) Urine Urobilinogen (0.2-1.0) Ur Leukocyte Esterase (Negative) Urine RBC (0-5) /hpf Urine WBC (0-5) /hpf Ur Squamous Epith Cells (0-5) /hpf Urine Bacteria (FEW) /hpf Urine Mucus (FEW) /hpf Result Diagrams: 07/29/19 08:45 07/29/19 08:45 - Problem List (1) Weakness SNOMED Code(s): 66511119 ICD Code: R53.1 - WEAKNESS Status: Acute Priority: High Current Visit: Yes (2) Healthcare-associated pneumonia SNOMED Code(s): 620391987, 718618024 ICD Code: J18.9 - PNEUMONIA, UNSPECIFIED ORGANISM Status: Acute Current Visit: Yes (3) Muscular deconditioning SNOMED Code(s): 66913269, 54785785890874 ICD Code: R29.898 - OTH SYMPTOMS AND SIGNS INVOLVING THE MUSCULOSKELETAL SYSTEM Status: Acute Current Visit: Yes (4) Physical deconditioning SNOMED Code(s): 48751908765083 ICD Code: R53.81 - OTHER MALAISE Status: Acute Current Visit: Yes (5) Other dysphagia SNOMED Code(s): 57329463 ICD Code: R13.19 - OTHER DYSPHAGIA Status: Acute Current Visit: Yes (6) Atrial fibrillation and flutter SNOMED Code(s): 740399388 ICD Code: I48.91 - UNSPECIFIED ATRIAL FIBRILLATION; I48.92 - UNSPECIFIED ATRIAL FLUTTER Status: Acute Current Visit: No (7) Congestive heart failure SNOMED Code(s): 22098775 ICD Code: I50.9 - HEART FAILURE, UNSPECIFIED Status: Acute Current Visit : No Qualifiers: Heart failure type: diastolic Heart failure chronicity: acute on chronic Qualified Code(s): I50.33 - Acute on chronic diastolic (congestive) heart failure (8) Dizziness SNOMED Code(s): 609069475, 534387671 ICD Code: R42 - DIZZINESS AND GIDDINESS Status: Acute Priority: High Current Visit: No (9) GERD (gastroesophageal reflux disease) SNOMED Code(s): 277081662 ICD Code: K21.9 - GASTRO-ESOPHAGEAL REFLUX DISEASE WITHOUT ESOPHAGITIS Status: Acute Current Visit: No Qualifiers: Esophagitis presence: without esophagitis Qualified Code(s): K21.9 - Gastro -esophageal reflux disease without esophagitis (10) Hypoxia SNOMED Code(s): 024426106 ICD Code: R09.02 - HYPOXEMIA Status: Acute Priority: High Current Visit : No (11) Mass of left lung SNOMED Code(s): 329419323 ICD Code: R91.8 - OTHER NONSPECIFIC ABNORMAL FINDING OF LUNG FIELD Status: Acute Priority: High Current Visit: No (12) Chronic renal insufficiency, stage III (moderate) SNOMED Code(s): 062442468 ICD Code: N18.3 - CHRONIC KIDNEY DISEASE, STAGE 3 (MODERATE) Status: Chronic Priority: Medium Current Visit: No (13) Dyslipidemia SNOMED Code(s): 108834329 ICD Code: E78.5 - HYPERLIPIDEMIA, UNSPECIFIED Status: Acute Current Visit : Yes (14) Gouty arthritis of right great toe SNOMED Code(s): 2898302858674911 ICD Code: M10.9 - GOUT, UNSPECIFIED Status: Acute Current Visit: No (15) Left lower lobe pneumonia SNOMED Code(s): 619247297 ICD Code: J18.1 - LOBAR PNEUMONIA, UNSPECIFIED ORGANISM Status: Acute Priority: High Current Visit: No Qualifiers: Pneumonia type: due to unspecified organism Qualified Code(s): J18.1 - Lobar pneumonia, unspecified organism Problem List Initiated/Reviewed/Updated: Yes Assessment/Plan Comment:: Weakness 2/2 acute physical deconditioning Worsening weakness after discharge PT recommendation for d/c was rfont wheel walker with stand by assist stated he was unable to even transition from bed to chair PLAN - readmission - New PT evaluation - staffing manager and licensed master social worker consult for discahrge Healthcare-associated pneumonia with hypoxia Partially treated CAP, needing one more dose of levaquin Acutely worsening shortness of breath with new infiltrate that was not present on discharge WBC count increased Could be confounded by aspiration PLAN - Complete last dose of levaquin - Start vancomycin, tamiflu and cefepime - Repeat sputum if possible - RSV panel ordered - Procalcitonin - Scheduled budesonide, mucomyst and ipratropium - RT evaluation and treat - O1 via NC for now, goal SatO2 >88% - MBSS ordered Concern for dysphagia Highly likely due to location of infiltrates PLAN -MBSS ordered COPD, unknown stage Chronic smoker Home management with Incruse Ellipta + recent discharge meds including budesonide, duonebs and mucomyst PLAN - Hold home meds for now - Respiratory evaluation and treatment - O2 supplementation to keep O2sat >88% Chronic renal insufficiency, stage IIIB (moderate) No changes from previoys admission PLAN - Monitor urine output - Renally dosed medications - Daily labs as needed with adjustments to management accordingly Atrial fibrillation and flutter, rate controlled, on Eliquis No RVR Admit with telemetry PLAN - Monitor for RVR - Continue flecainide Partially treated oral thrush Will need to complete 7-10 days PLAN - Continue home dose for 7 days DLD No acute issues Patient is out of window for benefit from lipid lowering agents Diet management is recommended PLAN - Hold home ezetimibe, pravastatin GERD (gastroesophageal reflux disease) On home omeprazole no acute issues PLAN - Continue for now Mass of left lung Previously diagnosed 08/2018 Family decided not to pursue aggressive treatment or diagnostics Previous smoker Likely malignancy PLAN - Repeat imaging if necessary during this admission Gout No acute issues PLAN - Continue home allopurinol Benign prostatic hyperplasia No acute issues PLAN - Continue home flomax PROPHYLAXIS DVT- on Eliquis GI- home omeprazole CODE STATUS: DNR DNI DISPOSITION: Admitted for observations and monitorization of hypoxemia.
[2019-07-27] MEDS ORDERED: Levofloxacin 750 MG Tab PO ONE (09:00)
[2019-07-27] MEDS ORDERED: Levofloxacin 750 MG Tab PO SCH ×3 (09:00→21:00)
[2019-07-27] MEDS: Benzonatate 100 MG Cap PO SCH ×3 (10:21→21:12)
[2019-07-27] MEDS: guaiFENesin 600 MG Tab.ER PO SCH ×2 (10:22→21:13)
[2019-07-27] MEDS: FLECAINIDE PO SCH ×2 (10:24→21:15)
[2019-07-27] MEDS: TAMSULOSIN 0.4 MG PO SCH (10:25)
[2019-07-27] MEDS: OMEPRAZOLE 20 MG PO SCH (10:26)
[2019-07-27] MEDS: ALLOPURINOL 100 MG PO SCH (10:27)
[2019-07-27] MEDS: NYSTATIN 100000 UNIT/ML PO SCH ×4 (10:28→21:15)
[2019-07-27] MEDS: Oseltamivir 30 MG Cap PO SCH ×2 (10:36→19:01)
[2019-07-27] MEDS: UMECLIDINIUM BROMIDE 62.5 MCG INH SCH (19:59)
[2019-07-27] MEDS: Budesonide 0.5 MG/2 ML Neb Susp NEB SCH (20:09)
[2019-07-27] MEDS: TRAZODONE 50 MG PO SCH (21:14)
[2019-07-28] MEDS: ACETYLCYSTEINE INH SCH ×5 (00:28→20:56)
[2019-07-28] MEDS: Ondansetron 4 MG/2 ML SDV IV PRN ×2 (06:17→13:33)
--- NOTE | 2019-07-28 08:41 | PCM.PN ---
- General Info Date of Service: 07/28/19 Subjective Update: No improvement in shortness of breath Very week Slept ok Tolerating diet - Patient Data Vitals - Most Recent: Last Vital Signs Temp 36.8 C 07/28/19 03:23 Pulse 82 07/28/19 03:23 Resp 18 07/28/19 03:23 BP 126/56 L 07/28/19 03:23 Pulse Ox 92 L 07/28/19 03:23 Weight - Most Recent: 90.038 kg I&O - Last 24 Hours: Intake & Output 07/27/19 07/28/19 07/28/19 22:59 06:59 14:59 Intake Total 600 380 Output Total 100 140 Balance 500 240 Alfonso Results Last 24 Hours: Microbiology 07/26/19 23:17 Aerobic Blood Culture - Preliminary Blood - Venous - Lab Draw NO GROWTH AFTER 1 DAY Anaerobic Blood Culture - Preliminary NO GROWTH AFTER 1 DAY 07/26/19 23:29 Aerobic Blood Culture - Preliminary Blood - Venous NO GROWTH AFTER 1 DAY Anaerobic Blood Culture - Preliminary NO GROWTH AFTER 1 DAY 07/27/19 06:15 Gram Stain - Final Sputum - Induced - Exam General: Alert, Oriented HEENT: Pupils Equal, Pupils Reactive, EOMI Neck: Supple, Trachea Midline, No JVD, No Thyromegaly Lungs: Decreased Breath Sounds, Crackles, Rales, Wheezing Cardiovascular: Regular Rate, Regular Rhythm. No: Murmurs, Gallops, Rubs GI/Abdominal Exam: Normal Bowel Sounds, Soft, Non-Tender, No Organomegaly, No Distention, No Mass Back Exam: Normal Inspection, Full Range of Motion. No: CVA Tenderness (L), CVA Tenderness (R) Extremities: Normal Inspection, No Pedal Edema Skin: Warm, Dry Neurological: No New Focal Deficit Psy/Mental Status: Alert, Normal Affect, Normal Mood - Problem List & Annotations (1) Chronic hypoxemic respiratory failure SNOMED Code(s): 696193616 Code(s): J96.11 - CHRONIC RESPIRATORY FAILURE WITH HYPOXIA Status: Acute Current Visit: Yes (2) Dyslipidemia SNOMED Code(s): 769377418 Code(s): E78.5 - HYPERLIPIDEMIA, UNSPECIFIED Status: Acute Current Visit : Yes (3) Healthcare-associated pneumonia SNOMED Code(s): 888165418, 754672946 Code(s): J18.9 - PNEUMONIA, UNSPECIFIED ORGANISM Status: Acute Current Visit: Yes (4) Muscular deconditioning SNOMED Code(s): 56414200, 17366910660250 Code(s): R29.898 - OTH SYMPTOMS AND SIGNS INVOLVING THE MUSCULOSKELETAL SYSTEM Status: Acute Current Visit: Yes (5) Oropharyngeal dysphagia SNOMED Code(s): 53213334 Code(s): R13.12 - DYSPHAGIA, OROPHARYNGEAL PHASE Status: Acute Current Visit: Yes (6) Physical deconditioning SNOMED Code(s): 80357064959824 Code(s): R53.81 - OTHER MALAISE Status: Acute Current Visit: Yes (7) Pulmonary fibrosis SNOMED Code(s): 00726841 Code(s): J84.10 - PULMONARY FIBROSIS, UNSPECIFIED Status: Acute Current Visit: Yes (8) Pulmonary fibrosis, unspecified SNOMED Code(s): 20642794 Code(s): J84.10 - PULMONARY FIBROSIS, UNSPECIFIED Status: Acute Current Visit: Yes (9) Weakness SNOMED Code(s): 15769372 Code(s): R53.1 - WEAKNESS Status: Acute Priority: High Current Visit: Yes (10) Acute renal failure SNOMED Code(s): 84169734 Code(s): N17.9 - ACUTE KIDNEY FAILURE, UNSPECIFIED Status: Acute Priority : High Current Visit: No Qualifiers: Acute renal failure type: unspecified Qualified Code(s): N17.9 - Acute kidney failure, unspecified (11) Acute respiratory failure with hypoxia SNOMED Code(s): 76613895, 021372683 Code(s): J96.01 - ACUTE RESPIRATORY FAILURE WITH HYPOXIA Status: Acute Current Visit: No (12) Aspiration into airway SNOMED Code(s): 030224049 Code(s): T17.908A - UNSP FB IN RESP TRACT, PART UNSP CAUSING OTH INJURY, INIT Status: Acute Priority: High Current Visit: No Qualifiers: Encounter type: initial encounter Qualified Code(s): T17.908A - Unspecified foreign body in respiratory tract, part unspecified causing other injury, initial encounter (13) Congestive heart failure with left ventricular diastolic dysfunction SNOMED Code(s): 50465368, 405440173 Code(s): I50.30 - UNSPECIFIED DIASTOLIC (CONGESTIVE) HEART FAILURE Status: Acute Priority: High Current Visit: No Qualifiers: Congestive heart failure chronicity: acute on chronic Qualified Code(s): I50.33 - Acute on chronic diastolic (congestive) heart failure (14) Dizziness SNOMED Code(s): 581101963, 121600177 Code(s): R42 - DIZZINESS AND GIDDINESS Status: Acute Priority: High Current Visit: No (15) GERD (gastroesophageal reflux disease) SNOMED Code(s): 446291242 Code(s): K21.9 - GASTRO-ESOPHAGEAL REFLUX DISEASE WITHOUT ESOPHAGITIS Status: Acute Current Visit: No Qualifiers: Esophagitis presence: without esophagitis Qualified Code(s): K21.9 - Gastro -esophageal reflux disease without esophagitis - Problem List Review Problem List Initiated/Reviewed/Updated: Yes - My Orders Last 24 Hours: My Active Orders 07/27/19 09:00 Allopurinol [Zyloprim] 100 mg PO DAILY Benzonatate [Tessalon Perles] 200 mg PO TID Flecainide 0 mg PO BID Nystatin [Nystatin Oral Syringe] 500,000 unit PO QID Omeprazole 20 mg PO DAILY Tamsulosin [Flomax] 0.4 mg PO DAILY Umeclidinium Al[place] 62.5 mcg INH DAILY guaiFENesin [Mucinex] 600 mg PO BID 07/27/19 21:00 Budesonide [Pulmicort] 0.5 mg NEB BID levoFLOXacin [Levaquin] 750 mg PO Q48H traZODone 25 mg PO BEDTIME 07/29/19 10:00 Modified Barium Swallow Study [Swallowing Function w Video] [CR] Routine - Plan Plan:: Healthcare-associated pneumonia with hypoxia 2/2 mycoplasma Partially treated CAP, needing one more dose of levaquin Acutely worsening shortness of breath with new infiltrate that was not present on discharge WBC count increased Covering for MRSA, influenza and Pseudomonas PLAN - Continue vancomycin and cefepime - Continue tamiflu, to complete 5 days - Scheduled budesonide, mucomyst and ipratropium - RT evaluation and treat - O2 via NC for now, goal SatO2 >88% Chronic hypoxemic respiratory failure Patient is dependent on onto nasal cannula to keep his O2 saturations above 88% He has extensive pulmonary fibrosis on CT scan with a history of COPD With areas of consolidation on both bases more pronounced on the left Lung nodule identified on 08/26 is bigger now PLAN -Continue O2 supplementation for now -Nebulization treatments as scheduled Oropharyngeal dysphagia Recommendation by speech therapy for nectar thickened liquids PLAN - Continue diet as indicated once discharged COPD, unknown stage Chronic smoker Home management with Incruse Ellipta + recent discharge meds including budesonide, duonebs and mucomyst PLAN - Hold home meds for now - Respiratory evaluation and treatment - O2 supplementation to keep O2sat >88% Chronic renal insufficiency, stage IIIB (moderate) No changes from previous admission PLAN - Monitor urine output - Renally dosed medications - Daily labs as needed with adjustments to management accordingly Weakness 2/2 acute physical deconditioning Worsening weakness after discharge Worsened during this admission and family agrees PLAN - readmission - New PT evaluation - manager public and social work supervisor consult for discharge Atrial fibrillation and flutter, rate controlled, on Eliquis No RVR Admit with telemetry PLAN - Monitor for RVR - Continue flecainide DLD No acute issues Patient is out of window for benefit from lipid lowering agents Diet management is recommended PLAN - Hold home ezetimibe, pravastatin GERD (gastroesophageal reflux disease) On home omeprazole no acute issues PLAN - Continue for now Mass of left lung Previously diagnosed 08/2018 Family decided not to pursue aggressive treatment or diagnostics Previous smoker Likely malignancy Repeat imaging shows larger mass Gout No acute issues PLAN - Continue home allopurinol Benign prostatic hyperplasia No acute issues PLAN - Continue home flomax Oral thrush, Will complete treatment regimen tomorrow PROPHYLAXIS DVT- on Eliquis GI- home omeprazole CODE STATUS: DNR DNI IMPORTANT CONVERSATIONS: Extensive discussion was had with family regarding disposition planning, they are aware and agree that patient would benefit from placement in a facility for therapy and possible alf placement depending on hospital course. DISPOSITION: Will continue to monitor respiratory status.
[2019-07-28] MEDS: guaiFENesin 600 MG Tab.ER PO SCH ×2 (08:59→21:24)
[2019-07-28] MEDS: Oseltamivir 30 MG Cap PO SCH ×2 (08:59→21:23)
[2019-07-28] MEDS: Benzonatate 100 MG Cap PO SCH ×3 (08:59→21:25)
[2019-07-28] MEDS: APIXABAN 2.5 MG PO SCH ×2 (09:00→21:24)
[2019-07-28] MEDS: FLECAINIDE PO SCH (09:01)
[2019-07-28] MEDS: NYSTATIN 100000 UNIT/ML PO SCH ×4 (09:01→21:24)
[2019-07-28] MEDS: TAMSULOSIN 0.4 MG PO SCH (09:01)
[2019-07-28] MEDS: ALLOPURINOL 100 MG PO SCH (09:02)
[2019-07-28] MEDS: OMEPRAZOLE 20 MG PO SCH (09:02)
[2019-07-28] MEDS: Budesonide 0.5 MG/2 ML Neb Susp NEB SCH ×2 (10:28→20:55)
[2019-07-28] MEDS: Cefepime 2 GM in Premix Bag 1 BAG IV SCH (15:36)
--- NOTE | 2019-07-28 18:13 | CT ---
Chest: Multiple axial sections through the chest were obtained. Intravenous contrast was not utilized. Comparison: Previous chest x-ray of 07/26/19. Findings: Patchy areas of increased density are noted within the left base with air bronchograms. This appears more prominent than seen on previous chest x-ray. Interstitial change is seen within the right base which may represent pneumonia as well as fibrosis. Diffuse emphysematous change is seen. Nodule is noted within the left upper lung measuring 5 mm. No other nodules are definitely appreciated. Atherosclerotic calcification is seen within the aorta and branch vessels. No aneurysm is seen. Small lymph nodes are seen within the mediastinum which are felt to be within normal limits. Coronary artery calcification is seen. No pericardial thickening is seen. Hyperdense lesion noted within the right kidney measuring 2.2 cm. This finding is most likely due to a hemorrhagic cyst. Bone window settings were reviewed which shows scattered degenerative change within the spine with mild scoliosis. Impression: 1. Patchy increased density within the left lung base with air bronchograms. Findings appear more prominent than on prior chest x-ray and had the appearance of pneumonia. 2. Interstitial change within the right lung base which may represent an area of additional pneumonia or fibrosis. 3. Emphysematous change. 4. 5 mm nodule within the left upper lung. If follow-up is decided clinically, recommend repeat noncontrast chest CT study in one year. 5. Other findings which are believed to be incidental as described above. Diagnostic code #3
[2019-07-28] MEDS: UMECLIDINIUM BROMIDE 62.5 MCG INH SCH (20:55)
[2019-07-28] MEDS ORDERED: ACETYLCYSTEINE NEB SCH (21:00)
[2019-07-28] MEDS ORDERED: FLECAINIDE 100 MG PO SCH ×2 (21:00→22:30)
[2019-07-28] MEDS ORDERED: Acetylcysteine 20% 200 MG/ML 4 ML Nebulizer Soln SDV NEB SCH (21:00)
[2019-07-28] MEDS: TRAZODONE 50 MG PO SCH (21:25)
[2019-07-29] MEDS: ACETYLCYSTEINE INH SCH ×2 (02:40→07:59)
[2019-07-29] MEDS: Budesonide 0.5 MG/2 ML Neb Susp NEB SCH ×2 (07:59→21:11)
[2019-07-29] MEDS: UMECLIDINIUM BROMIDE 62.5 MCG INH SCH ×2 (08:00→17:30)
[2019-07-29] MEDS ORDERED: Glycopyrrolate 15.6 MCG Cap.W.Dev Kit of 6 IH SCH (09:00)
[2019-07-29] MEDS ORDERED: Barium Sulfate 60% w/v Susp 355 ML Bottle PO ONE (09:22)
[2019-07-29] MEDS ORDERED: Barium Sulfate 60% w/w Esophageal Crm 454 GM Tube PO ONE (09:22)
[2019-07-29] MEDS: Benzonatate 100 MG Cap PO SCH ×4 (09:44→20:48)
[2019-07-29] MEDS: Oseltamivir 30 MG Cap PO SCH ×2 (09:44→18:34)
[2019-07-29] MEDS: guaiFENesin 600 MG Tab.ER PO SCH ×2 (09:45→20:49)
[2019-07-29] MEDS: NYSTATIN 100000 UNIT/ML PO SCH ×4 (09:45→20:48)
[2019-07-29] MEDS: Flecainide 100 MG Tab PO SCH ×2 (09:45→20:48)
[2019-07-29] MEDS: Apixaban 2.5 MG Tab PO SCH ×2 (09:45→20:49)
[2019-07-29] MEDS: Allopurinol 100 MG Tab PO SCH (09:45)
[2019-07-29] MEDS: Pantoprazole 40 MG Tab.CR PO SCH (09:45)
--- NOTE | 2019-07-29 10:44 | CR ---
[facility] Rehabilitative swallowing video procedure was performed in conjunction with the speech pathologist. Different consistencies of barium were given. Findings: Mild aspiration was seen with thin liquids. Increased residual is noted throughout the exam. No additional abnormality is seen. Impression: 1. Findings as noted above. For further details, please see the speech pathologist's report. Diagnostic code #2
[2019-07-29] MEDS ORDERED: Azithromycin 250 MG Tab PO SCH (12:30)
[2019-07-29] MEDS: Cefepime 2 GM in Premix Bag 1 BAG IV SCH ×2 (13:52→13:59)
[2019-07-29] MEDS: Acetylcysteine 20% 200 MG/ML 4 ML Nebulizer Soln SDV INH SCH ×2 (14:19→21:11)
[2019-07-29] MEDS ORDERED: Vancomycin 1 GM, Vancomycin 250 MG in Sodium Chloride 0.9% 250 ML IV SCH (16:00)
--- NOTE | 2019-07-29 20:24 | PCM.PN ---
- General Info Date of Service: 07/29/19 Subjective Update: Patient slept okay, is tolerating diet, ambulating with assistance Overnight events per nursing Continues to be on nasal cannula - Review of Systems General: Reports: Weakness, Fatigue. Denies: Fever, Malaise, Chills, Night Sweats, Appetite HEENT: Denies: Dysphasia, Ear Pain, Eye Pain, Headaches, Rhinitis, Visual Changes Pulmonary: Reports: Shortness of Breath, Cough, Sputum. Denies: Wheezing Cardiovascular: Reports: Dyspnea on Exertion, Orthopnea, Edema. Denies: Chest Pain, Palpitations, PND Gastrointestinal: Reports: Difficulty Swallowing. Denies: Abdominal Pain, Constipation, Decreased Appetite, Diarrhea, Hematochezia, Melena, Nausea, Vomiting Genitourinary: Denies: Dysuria, Frequency, Burning, Pain Musculoskeletal: Denies: Joint Pain, Joint Swelling Skin: Reports: Pallor. Denies: Cyanosis, Jaundice, Mottled, Diaphoresis, Dryness, Bruising Neurological: Reports: Weakness. Denies: Confusion, Dizziness, Headache, Numbness, Paresthesia, Syncope, Tingling, Tremors Psychiatric: Denies: Confusion, Depression, Mood Lability, Anxiety, Agitation - Patient Data Vitals - Most Recent: Last Vital Signs Temp 36.8 C 07/29/19 15:34 Pulse 76 07/29/19 15:34 Resp 20 07/29/19 15:34 BP 116/49 L 07/29/19 15:34 Pulse Ox 91 L 07/29/19 15:34 Orthostatic Blood Pressure [ 117/48 Standing] Orthostatic Blood Pressure [ 102/84 Sitting] Orthostatic Blood Pressure [ 109/76 Supine] Weight - Most Recent: 88.949 kg I&O - Last 24 Hours: Intake & Output 07/29/19 07/29/19 07/29/19 06:59 14:59 22:59 Intake Total 480 240 300 Output Total 525 600 Balance -45 240 -300 Lab Results Last 24 Hours: Laboratory Results - last 24 hr 07/29/19 07/29/19 Range/Units 08:45 08:45 WBC 13.52 H (4.23-9.07) K/mm3 RBC 4.42 L (4.63-6.08) M/mm3 Hgb 11.4 L (13.7-17.5) gm/dl Hct 36.7 L (40.1-51.0) % MCV 83.0 (79.0-92.2) fl MCH 25.8 (25.7-32.2) pg MCHC 31.1 L (32.2-35.5) g/dl RDW Std Deviation 56.0 H (35.1-43.9) fL Plt Count 254 (163-337) K/mm3 MPV 9.2 L (9.4-12.3) fl Neut % (Auto) 79.1 H (34.0-67.9) % Lymph % (Auto) 8.1 L (21.8-53.1) % [place] % (Auto) 8.5 (5.3-12.2) % Eos % (Auto) 1.3 (0.8-7.0) Baso % (Auto) 0.1 (0.1-1.2) % Neut # (Auto) 10.70 H (1.78-5.38) K/mm3 Lymph # (Auto) 1.09 L (1.32-3.57) K/mm3 [place] # (Auto) 1.15 H (0.30-0.82) K/mm3 Eos # (Auto) 0.18 (0.04-0.54) K/mm3 Baso # (Auto) 0.01 (0.01-0.08) K/mm3 Manual Slide Review Normal smear Sodium 141 (136-145) mEq/L Potassium 4.5 (3.5-5.1) mEq/L Chloride 105 (98-107) mEq/L Carbon Dioxide 27 (21-32) mEq/L Anion Gap 13.5 (5-15) BUN 31 H (7-18) mg/dL Creatinine 1.9 H (0.7-1.3) mg/dL Est Cr Clr Drug Dosing 33.47 mL/min Estimated GFR (MDRD) 34 (>60) mL/min BUN/Creatinine Ratio 16.3 (14-18) Glucose 95 (83-115) mg/dL Calcium 8.8 (8.5-10.1) mg/dL Phosphorus 3.2 (2.6-4.7) mg/dL Magnesium 2.2 (1.8-2.4) mg/dl Total Bilirubin 0.5 (0.2-1.0) mg/dL AST 15 (15-37) U/L ALT 29 (16-63) U/L Alkaline Phosphatase 108 (46-116) U/L Total Protein 6.7 (6.4-8.2) g/dl Albumin 2.6 L (3.4-5.0) g/dl Globulin 4.1 gm/dL Albumin/Globulin Ratio 0.6 L (1-2) - Exam General: Alert, Oriented, Cooperative, No Acute Distress HEENT: Pupils Equal, Pupils Reactive, EOMI, Mucous Membr. Moist/[place] Neck: Supple, Trachea Midline, No JVD, No Thyromegaly. No: Lymphadenopathy Lungs: Decreased Breath Sounds, Crackles, Rales, Rhonchi. No: Wheezing Cardiovascular: Regular Rate, Irregular Rhythm. No: Murmurs, Gallops, Rubs GI/Abdominal Exam: Normal Bowel Sounds, Soft, Non-Tender, No Organomegaly, No Distention. No: Guarding, Rigid, Rebound Back Exam: Normal Inspection. No: CVA Tenderness (L), CVA Tenderness (R) Extremities: Normal Inspection, Pedal Edema, Slow Capillary Refill Skin: Warm, Intact Neurological: No New Focal Deficit Psy/Mental Status: Alert, Normal Affect, Normal Mood - Problem List & Annotations (1) Oropharyngeal dysphagia SNOMED Code(s): 96051509 Code(s): R13.12 - DYSPHAGIA, OROPHARYNGEAL PHASE Status: Acute Current Visit: Yes (2) Chronic hypoxemic respiratory failure SNOMED Code(s): 552759849 Code(s): J96.11 - CHRONIC RESPIRATORY FAILURE WITH HYPOXIA Status: Acute Current Visit: Yes (3) Pulmonary fibrosis SNOMED Code(s): 03604520 Code(s): J84.10 - PULMONARY FIBROSIS, UNSPECIFIED Status: Acute Current Visit: Yes (4) Pulmonary fibrosis, unspecified SNOMED Code(s): 58098398 Code(s): J84.10 - PULMONARY FIBROSIS, UNSPECIFIED Status: Acute Current Visit: Yes (5) Dyslipidemia SNOMED Code(s): 300452734 Code(s): E78.5 - HYPERLIPIDEMIA, UNSPECIFIED Status: Acute Current Visit : Yes (6) Healthcare-associated pneumonia SNOMED Code(s): 020439748, 479234871 Code(s): J18.9 - PNEUMONIA, UNSPECIFIED ORGANISM Status: Acute Current Visit: Yes (7) Muscular deconditioning SNOMED Code(s): 23235419, 67398918824741 Code(s): R29.898 - OTH SYMPTOMS AND SIGNS INVOLVING THE MUSCULOSKELETAL SYSTEM Status: Acute Current Visit: Yes (8) Physical deconditioning SNOMED Code(s): 83355269599658 Code(s): R53.81 - OTHER MALAISE Status: Acute Current Visit: Yes (9) Hypoxia SNOMED Code(s): 471864477 Code(s): R09.02 - HYPOXEMIA Status: Acute Priority: High Current Visit : No (10) Mass of left lung SNOMED Code(s): 573252871 Code(s): R91.8 - OTHER NONSPECIFIC ABNORMAL FINDING OF LUNG FIELD Status: Acute Priority: High Current Visit: No (11) Mycoplasma infection SNOMED Code(s): 143098680 Code(s): A49.3 - MYCOPLASMA INFECTION, UNSPECIFIED SITE Status: Acute Priority: High Current Visit: No (12) Pneumonia SNOMED Code(s): 470735937 Code(s): J18.9 - PNEUMONIA, UNSPECIFIED ORGANISM Status: Acute Priority: High Current Visit: No Qualifiers: Pneumonia type: aspiration pneumonia Aspiration pneumonia type: due to vomit Laterality: unspecified laterality Lung location: unspecified part of lung Qualified Code(s): J69.0 - Pneumonitis due to inhalation of food and vomit (13) Chronic renal insufficiency, stage III (moderate) SNOMED Code(s): 350749470 Code(s): N18.3 - CHRONIC KIDNEY DISEASE, STAGE 3 (MODERATE) Status: Chronic Priority: Medium Current Visit: No - Problem List Review Problem List Initiated/Reviewed/Updated: Yes - Plan Plan:: Healthcare-associated pneumonia with hypoxia 2/2 mycoplasma Partially treated CAP, needing one more dose of levaquin Acutely worsening shortness of breath with new infiltrate that was not present on discharge WBC count increased Covering for MRSA, influenza and Pseudomonas PLAN - Transition to PO medications in AM if he continues to be stable - Continue tamiflu, to complete 5 days - Scheduled budesonide, mucomyst and ipratropium - RT evaluation and treat - O2 via NC for now, goal SatO2 >88% Chronic hypoxemic respiratory failure Patient is dependent on onto nasal cannula to keep his O2 saturations above 88% He has extensive pulmonary fibrosis on CT scan with a history of COPD With areas of consolidation on both bases more pronounced on the left Lung nodule identified on 08/26 is bigger now PLAN -Continue O2 supplementation for now -Nebulization treatments as scheduled Oropharyngeal dysphagia Recommendation by speech therapy for nectar thickened liquids PLAN - Continue diet as indicated once discharged COPD, unknown stage Chronic smoker Home management with Incruse Ellipta + recent discharge meds including budesonide, duonebs and mucomyst PLAN - Hold home meds for now - Respiratory evaluation and treatment - O2 supplementation to keep O2sat >88% Chronic renal insufficiency, stage IIIB (moderate) No changes from previous admission PLAN - Monitor urine output - Renally dosed medications - Daily labs as needed with adjustments to management accordingly Weakness 2/2 acute physical deconditioning Worsening weakness after discharge Worsened during this admission and family agrees PLAN - readmission - New PT evaluation - shop manager and social problems specialist consult for discharge Atrial fibrillation and flutter, rate controlled, on Eliquis No RVR Admit with telemetry PLAN - Monitor for RVR - Continue flecainide DLD No acute issues Patient is out of window for benefit from lipid lowering agents Diet management is recommended PLAN - Hold home ezetimibe, pravastatin GERD (gastroesophageal reflux disease) On home omeprazole no acute issues PLAN - Continue for now Mass of left lung Previously diagnosed 08/2018 Family decided not to pursue aggressive treatment or diagnostics Previous smoker Likely malignancy PLAN - Repeat imaging if necessary during this admission Gout No acute issues PLAN - Continue home allopurinol Benign prostatic hyperplasia No acute issues PLAN - Continue home flomax Oral thrush, Will complete treatment regimen tomorrow PROPHYLAXIS DVT- on Eliquis GI- home omeprazole CODE STATUS: DNR DNI IMPORTANT CONVERSATIONS: Extensive discussion was had with family regarding disposition planning, they are aware and agree that patient would benefit from placement in a facility for therapy and possible adjunct faculty for medical terminology placement depending on hospital course. DISPOSITION: Will continue to be
[2019-07-29] MEDS: traZODone 50 MG Tab PO SCH (20:49)
[2019-07-30] MEDS: Acetylcysteine 20% 200 MG/ML 4 ML Nebulizer Soln SDV INH SCH ×4 (02:18→21:51)
[2019-07-30] MEDS: Oseltamivir 30 MG Cap PO SCH ×2 (06:53→18:12)
[2019-07-30] MEDS: Psyllium Husk Powder Sugar Free 3.4 GM Packet PO SCH ×3 (06:53→16:56)
[2019-07-30] MEDS: UMECLIDINIUM BROMIDE 62.5 MCG INH SCH (08:15)
[2019-07-30] MEDS: Budesonide 0.5 MG/2 ML Neb Susp NEB SCH ×2 (08:16→21:51)
[2019-07-30] MEDS: Apixaban 2.5 MG Tab PO SCH ×2 (09:01→20:57)
[2019-07-30] MEDS: NYSTATIN 100000 UNIT/ML PO SCH (09:02)
[2019-07-30] MEDS: guaiFENesin 600 MG Tab.ER PO SCH ×2 (09:02→20:58)
[2019-07-30] MEDS: Flecainide 100 MG Tab PO SCH ×2 (09:03→20:57)
[2019-07-30] MEDS: Benzonatate 100 MG Cap PO SCH ×3 (09:03→20:57)
[2019-07-30] MEDS: Pantoprazole 40 MG Tab.CR PO SCH (09:03)
[2019-07-30] MEDS: Allopurinol 100 MG Tab PO SCH (09:04)
[2019-07-30] MEDS: Doxycycline 100 MG Cap PO SCH ×2 (12:56→20:57)
[2019-07-30] MEDS: Cefdinir 300 MG Cap PO SCH ×2 (12:56→20:57)
[2019-07-30] MEDS: Acetaminophen 325 MG Tab PO PRN (18:12)
[2019-07-30] MEDS: traZODone 50 MG Tab PO SCH (20:58)
[2019-07-31] MEDS: Acetylcysteine 20% 200 MG/ML 4 ML Nebulizer Soln SDV INH SCH ×2 (02:11→08:37)
--- NOTE | 2019-07-31 04:47 | PCM.PN ---
- General Info Date of Service: 07/30/19 Subjective Update: Feeling better SOB under control Slept ok Still feeling week No overnight reports by nursing staff - Patient Data Vitals - Most Recent: Last Vital Signs Temp 36.5 C 07/30/19 23:48 Pulse 58 L 07/30/19 23:48 Resp 21 H 07/30/19 23:48 BP 111/54 L 07/30/19 23:48 Pulse Ox 94 L 07/31/19 02:11 Orthostatic Blood Pressure [ 117/48 Standing] Orthostatic Blood Pressure [ 102/84 Sitting] Orthostatic Blood Pressure [ 109/76 Supine] Weight - Most Recent: 88.949 kg I&O - Last 24 Hours: Intake & Output 07/30/19 07/30/19 07/31/19 14:59 22:59 06:59 Intake Total 660 830 Balance 660 830 Alfonso Results Last 24 Hours: Microbiology 07/26/19 23:17 Aerobic Blood Culture - Preliminary Blood - Venous - Lab Draw NO GROWTH AFTER 4 DAYS Anaerobic Blood Culture - Preliminary NO GROWTH AFTER 4 DAYS 07/26/19 23:29 Aerobic Blood Culture - Preliminary Blood - Venous NO GROWTH AFTER 4 DAYS Anaerobic Blood Culture - Preliminary NO GROWTH AFTER 4 DAYS 07/28/19 15:15 Streptococcus pneumoniae Antigen (M - Final Urine 07/27/19 06:15 Gram Stain - Final Sputum - Induced Sputum Culture - Final (Mrsa) Staphylococcus Aureus - Exam General: Alert, Oriented HEENT: Pupils Equal, Pupils Reactive Neck: Supple, Trachea Midline, No JVD, No Thyromegaly. No: Lymphadenopathy Lungs: Clear to Auscultation, Normal Respiratory Effort, Crackles, Rales. No: Wheezing Cardiovascular: Regular Rate, Regular Rhythm. No: Murmurs, Gallops, Rubs GI/Abdominal Exam: Normal Bowel Sounds, Soft, Non-Tender, No Distention, No Abnormal Bruit, No Mass Back Exam: Normal Inspection. No: CVA Tenderness (L), CVA Tenderness (R) Extremities: Normal Inspection, No Pedal Edema, Normal Capillary Refill Skin: Warm, Dry Neurological: No New Focal Deficit Psy/Mental Status: Alert, Normal Affect, Normal Mood - Problem List & Annotations (1) Oropharyngeal dysphagia SNOMED Code(s): 43296011 Code(s): R13.12 - DYSPHAGIA, OROPHARYNGEAL PHASE Status: Acute Current Visit: Yes (2) Chronic hypoxemic respiratory failure SNOMED Code(s): 700695858 Code(s): J96.11 - CHRONIC RESPIRATORY FAILURE WITH HYPOXIA Status: Acute Current Visit: Yes (3) Pulmonary fibrosis SNOMED Code(s): 68322124 Code(s): J84.10 - PULMONARY FIBROSIS, UNSPECIFIED Status: Acute Current Visit: Yes (4) Pulmonary fibrosis, unspecified SNOMED Code(s): 38620918 Code(s): J84.10 - PULMONARY FIBROSIS, UNSPECIFIED Status: Acute Current Visit: Yes (5) Dyslipidemia SNOMED Code(s): 232842595 Code(s): E78.5 - HYPERLIPIDEMIA, UNSPECIFIED Status: Acute Current Visit : Yes (6) Healthcare-associated pneumonia SNOMED Code(s): 970437275, 921166479 Code(s): J18.9 - PNEUMONIA, UNSPECIFIED ORGANISM Status: Acute Current Visit: Yes (7) Muscular deconditioning SNOMED Code(s): 35641947, 92215014017586 Code(s): R29.898 - OTH SYMPTOMS AND SIGNS INVOLVING THE MUSCULOSKELETAL SYSTEM Status: Acute Current Visit: Yes (8) Physical deconditioning SNOMED Code(s): 15091401358421 Code(s): R53.81 - OTHER MALAISE Status: Acute Current Visit: Yes (9) Hypoxia SNOMED Code(s): 835876311 Code(s): R09.02 - HYPOXEMIA Status: Acute Priority: High Current Visit : No (10) Mass of left lung SNOMED Code(s): 674488105 Code(s): R91.8 - OTHER NONSPECIFIC ABNORMAL FINDING OF LUNG FIELD Status: Acute Priority: High Current Visit: No (11) Mycoplasma infection SNOMED Code(s): 989247147 Code(s): A49.3 - MYCOPLASMA INFECTION, UNSPECIFIED SITE Status: Acute Priority: High Current Visit: No (12) Pneumonia SNOMED Code(s): 225650230 Code(s): J18.9 - PNEUMONIA, UNSPECIFIED ORGANISM Status: Acute Priority: High Current Visit: No Qualifiers: Pneumonia type: aspiration pneumonia Aspiration pneumonia type: due to vomit Laterality: unspecified laterality Lung location: unspecified part of lung Qualified Code(s): J69.0 - Pneumonitis due to inhalation of food and vomit (13) Chronic renal insufficiency, stage III (moderate) SNOMED Code(s): 446367308 Code(s): N18.3 - CHRONIC KIDNEY DISEASE, STAGE 3 (MODERATE) Status: Chronic Priority: Medium Current Visit: No - Problem List Review Problem List Initiated/Reviewed/Updated: Yes - Plan Plan:: Healthcare-associated pneumonia with hypoxia 2/2 mycoplasma Partially treated CAP, needing one more dose of levaquin Acutely worsening shortness of breath with new infiltrate that was not present on discharge WBC count increased Covering for MRSA, influenza and Pseudomonas PLAN - Transition to Cftaroline and doxycycline to complete 7 days - Continue tamiflu, to complete 5 days - Scheduled budesonide, mucomyst and ipratropium - RT evaluation and treat - O2 via NC for now, goal SatO2 >88% Chronic hypoxemic respiratory failure Patient is dependent on onto nasal cannula to keep his O2 saturations above 88% He has extensive pulmonary fibrosis on CT scan with a history of COPD With areas of consolidation on both bases more pronounced on the left Lung nodule identified on 08/26 is bigger now PLAN -Continue O2 supplementation for now -Nebulization treatments as scheduled Oropharyngeal dysphagia Recommendation by speech therapy for nectar thickened liquids PLAN - Continue diet as indicated once discharged COPD, unknown stage Chronic smoker Home management with Incruse Ellipta + recent discharge meds including budesonide, duonebs and mucomyst PLAN - Hold home meds for now - Respiratory evaluation and treatment - O2 supplementation to keep O2sat >88% Chronic renal insufficiency, stage IIIB (moderate) No changes from previous admission PLAN - Monitor urine output - Renally dosed medications - Daily labs as needed with adjustments to management accordingly Weakness 2/2 acute physical deconditioning Worsening weakness after discharge Worsened during this admission and family agrees PLAN - readmission - New PT evaluation - transport company manager and forensic social worker consult for discharge Atrial fibrillation and flutter, rate controlled, on Eliquis No RVR Admit with telemetry PLAN - Monitor for RVR - Continue flecainide DLD No acute issues Patient is out of window for benefit from lipid lowering agents Diet management is recommended PLAN - Hold home ezetimibe, pravastatin GERD (gastroesophageal reflux disease) On home omeprazole no acute issues PLAN - Continue for now Mass of left lung Previously diagnosed 08/2018 Family decided not to pursue aggressive treatment or diagnostics Previous smoker Likely malignancy Repeat imaging shows larger mass Gout No acute issues PLAN - Continue home allopurinol Benign prostatic hyperplasia No acute issues PLAN - Continue home flomax Oral thrush, Will complete treatment regimen tomorrow PROPHYLAXIS DVT- on Eliquis GI- home omeprazole CODE STATUS: DNR DNI IMPORTANT CONVERSATIONS: Extensive discussion was had with family regarding disposition planning, they are aware and agree that patient would benefit from placement in a facility for therapy and possible buttermaker continuous churn placement depending on hospital course. DISPOSITION: Pending placement in SNF.
[2019-07-31] MEDS: Psyllium Husk Powder Sugar Free 3.4 GM Packet PO SCH ×2 (06:14→10:04)
[2019-07-31] MEDS: Oseltamivir 30 MG Cap PO SCH (06:14)
[2019-07-31] MEDS: Acetaminophen 325 MG Tab PO PRN (06:14)
[2019-07-31 08:30] VITALS: BP 102/60; PULSE 62
[2019-07-31] MEDS: Budesonide 0.5 MG/2 ML Neb Susp NEB SCH (08:37)
[2019-07-31] MEDS ORDERED: UMECLIDINIUM BROMIDE 62.5 MCG INH SCH (09:00)
[2019-07-31] MEDS: Benzonatate 100 MG Cap PO SCH (10:04)
[2019-07-31] MEDS: guaiFENesin 600 MG Tab.ER PO SCH (10:04)
[2019-07-31] MEDS: Allopurinol 100 MG Tab PO SCH (10:04)
[2019-07-31] MEDS: Doxycycline 100 MG Cap PO SCH (10:04)
[2019-07-31] MEDS: Apixaban 2.5 MG Tab PO SCH (10:05)
[2019-07-31] MEDS: Flecainide 100 MG Tab PO SCH (10:05)
[2019-07-31] MEDS: Cefdinir 300 MG Cap PO SCH (10:05)
[2019-07-31] MEDS: Pantoprazole 40 MG Tab.CR PO SCH (10:05)
[2019-07-31] MEDS: Bisacodyl 10 MG Supp RECTAL ONE ×2 (10:08→10:40)
--- NOTE | 2019-07-31 11:21 | PCM.DCSUM1 ---
Discharge Summary - Hospital Course Free Text/Narrative:: Patient came in on 07/26 complaining of severe weakness. Of note patient was admitted to week prior for community-acquired pneumonia and bacteremia secondary to pansensitive Klebsiella and treated with Levaquin, discharged to complete 1 more day. In the emergency Department patient was evaluated with severe worsening of shortness of breath and weakness to the point that he could not hold himself up. He was admitted and started treatment for hospital-acquired pneumonia with double pseudomonal coverage and MRSA coverage. She was also started on Tamiflu. RSV panel, mycoplasma and strep pneumo serology ordered. Positive for mycoplasma. Antibiotics transitioned to by mouth. Patient was discharged to complete 7 more days of antibiotics and 1 more day of Tamiflu. CT scan done during admission with significant pulmonary fibrosis. Evaluate by RT who qualified patient for home o2 supplementation GFR 33.7 on discharge - Discharge Data Discharge Date: 07/31/19 Discharge Disposition: DC/Tfer to SNF 03 Condition: Good - Referral to Home Health Primary Care Physician: Toribio Franco MD - Discharge Diagnosis/Problem(s) (1) Chronic hypoxemic respiratory failure SNOMED Code(s): 851377622 ICD Code: J96.11 - CHRONIC RESPIRATORY FAILURE WITH HYPOXIA Status: Acute Current Visit: Yes (2) Dyslipidemia SNOMED Code(s): 147779598 ICD Code: E78.5 - HYPERLIPIDEMIA, UNSPECIFIED Status: Acute Current Visit : Yes (3) Healthcare-associated pneumonia SNOMED Code(s): 700617921, 601190722 ICD Code: J18.9 - PNEUMONIA, UNSPECIFIED ORGANISM Status: Acute Current Visit: Yes (4) Muscular deconditioning SNOMED Code(s): 84542791, 68761349107135 ICD Code: R29.898 - [facility] SYMPTOMS AND SIGNS INVOLVING THE MUSCULOSKELETAL SYSTEM Status: Acute Current Visit: Yes (5) Oropharyngeal dysphagia SNOMED Code(s): 07042571 ICD Code: R13.12 - DYSPHAGIA, OROPHARYNGEAL PHASE Status: Acute Current Visit: Yes (6) Physical deconditioning SNOMED Code(s): 45313006228738 ICD Code: R53.81 - OTHER MALAISE Status: Acute Current Visit: Yes (7) Pulmonary fibrosis SNOMED Code(s): 67200660 ICD Code: J84.10 - PULMONARY FIBROSIS, UNSPECIFIED Status: Acute Current Visit: Yes (8) Pulmonary fibrosis, unspecified SNOMED Code(s): 43545880 ICD Code: J84.10 - PULMONARY FIBROSIS, UNSPECIFIED Status: Acute Current Visit: Yes (9) Weakness SNOMED Code(s): 14610673 ICD Code: R53.1 - WEAKNESS Status: Acute Priority: High Current Visit: Yes (10) Acute renal failure SNOMED Code(s): 02294356 ICD Code: N17.9 - ACUTE KIDNEY FAILURE, UNSPECIFIED Status: Acute Priority: High Current Visit: No Qualifiers: Acute renal failure type: unspecified Qualified Code(s): N17.9 - Acute kidney failure, unspecified (11) Acute respiratory failure with hypoxia SNOMED Code(s): 50389632, 516524219 ICD Code: J96.01 - ACUTE RESPIRATORY FAILURE WITH HYPOXIA Status: Acute Current Visit: No (12) Aspiration into airway SNOMED Code(s): 220124348 ICD Code: T17.908A - UNSP FB IN RESP TRACT, PART UNSP CAUSING OTH INJURY, INIT Status: Acute Priority: High Current Visit: No Qualifiers: Encounter type: initial encounter Qualified Code(s): T17.908A - Unspecified foreign body in respiratory tract, part unspecified causing other injury, initial encounter (13) Congestive heart failure with left ventricular diastolic dysfunction SNOMED Code(s): 88672811, 066054264 ICD Code: I50.30 - UNSPECIFIED DIASTOLIC (CONGESTIVE) HEART FAILURE Status : Acute Priority: High Current Visit: No Qualifiers: Congestive heart failure chronicity: acute on chronic Qualified Code(s): I50.33 - Acute on chronic diastolic (congestive) heart failure (14) Dizziness SNOMED Code(s): 404127118, 278418300 ICD Code: R42 - DIZZINESS AND GIDDINESS Status: Acute Priority: High Current Visit: No (15) GERD (gastroesophageal reflux disease) SNOMED Code(s): 651781199 ICD Code: K21.9 - GASTRO-ESOPHAGEAL REFLUX DISEASE WITHOUT ESOPHAGITIS Status: Acute Current Visit: No Qualifiers: Esophagitis presence: without esophagitis Qualified Code(s): K21.9 - Gastro -esophageal reflux disease without esophagitis - Patient Summary/Data Consults: Consultations 07/27/19 00:14 Consult to Case Management/Cardiopulmonary Supervisor [CONS] Routine MARINE SURVEYOR Evaluation and Treatment [CONS] Routine 07/29/19 10:49 Consult to Occupational Therapy [OT Evaluation and Treatment] [CONS] Routine Consult to Physical Therapy [PT Evaluation and Treatment] [CONS] Routine - Patient Instructions Diet: Heart Healthy Diet (NEctar thickened liquids) Activity: As Tolerated - Discharge Plan Prescriptions/Med Rec: Acetylcysteine [Mucomyst 10%] 500 mg NEB TID 15 Days #45 vial Cefdinir [Omnicef] 300 mg PO BID 7 Days #14 cap Doxycycline [Vibramycin] 100 mg PO BID 7 Days #14 cap Oseltamivir [Tamiflu] 30 mg PO BID@0700,1900 1 Days #2 cap Home Medications: Home Meds Ezetimibe [Zetia] 10 mg PO DAILY 02/27/15 [History] Omeprazole 20 mg PO DAILY 02/27/15 [History] Pravastatin [Pravachol] 40 mg PO DAILY 02/27/15 [History] Budesonide [Pulmicort] 0.5 mg NEB BID 11/20/16 [History] Flecainide [Tambocor] 100 mg PO BID 11/20/16 [History] Umeclidinium [place] [Incruse Ellipta*] 62.5 mcg INH DAILY 12/27/16 [History] guaiFENesin [Mucinex] 600 mg PO BID 10/12/18 [History] Tamsulosin [Flomax] 0.4 mg PO DAILY 11/14/18 [History] traZODone HCl [Trazodone HCl] 25 mg PO BEDTIME 02/26/19 [History] Apixaban [Eliquis] 2.5 mg PO Q12H #60 tablet 03/01/19 [Rx] Albuterol/Ipratropium [DuoNeb 3.0-0.5 MG/3 ML] 3 ml NEB Q4HR PRN 07/21/19 [ History] Allopurinol [Zyloprim] 100 mg PO DAILY 07/21/19 [History] Albuterol/Ipratropium [DuoNeb 3.0-0.5 MG/3 ML] 3 ml NEB Q8HR 2 Days #6 neb 07/25 [Rx] Nystatin [Nystatin Oral Syringe] 500,000 unit PO QID 8 Days syringe 07/25/19 [ Rx] levoFLOXacin [Levaquin] 750 mg PO Q48H 4 Days #2 tablet 07/25/19 [Rx] Acetylcysteine [Mucomyst 10%] 500 mg NEB TID 15 Days #45 vial 07/31/19 [Rx] Cefdinir [Omnicef] 300 mg PO BID 7 Days #14 cap 07/31/19 [Rx] Doxycycline [Vibramycin] 100 mg PO BID 7 Days #14 cap 07/31/19 [Rx] Oseltamivir [Tamiflu] 30 mg PO BID@0700,1900 1 Days #2 cap 07/31/19 [Rx] Patient Handouts: Weakness, [id number] Referrals: Toribio Franco MD [Primary Care Provider] - - Discharge Summary/Plan Comment DC Time >30 min.: Yes Discharge Summary/Plan Comment: * DISCHARGE INSTRUCTIONS TO PATIENT 1. Please follow up with her primary care physician in the next 3-5 days 2. You will need to be evaluated by sales development specialist in the next 2 weeks 3. Ambulate with assistance at home 4. Avoid changes in position or standing up too quickly 5. Please make sure to use her incentive spirometer as often as possible, ideally every hour on the hour 6. You will need to complete 7 more days on the antibiotics, Ceftin year and doxycycline, and one more day of Tamiflu 7. Please make sure to continue your nebulizations as scheduled 8. Use oxygen supplementation at rest and on activity as needed 9. Please make sure to follow a healthy dietwith nectar thickened liquids DISCHARGE RECOMMENDATIONS TO PRIMARY CARE PROVIDER 1. Please make sure patient follows up with specialist appointment, he will need follow-up with pulmonary. 2. Please set up patient with pulmonary rehabilitation 3. He is being discharged on scheduled feminization treatments, please adjusted necessary 4. He will need update on his vaccines once he is stable 5. Please make sure he follows up with physical therapy 6.Modified barium swallow was performed and speech therapy recommended patient follow a regular diet with due to oropharyngeal dysphagia nectar thickened liquids. Thank you for allowing me to participate in your patient's care - Patient Data Vitals - Most Recent: Last Vital Signs Temp 36.4 C 07/31/19 08:03 Pulse 62 07/31/19 08:03 Resp 20 07/31/19 08:03 BP 102/60 07/31/19 08:03 Pulse Ox 95 07/31/19 08:39 Orthostatic Blood Pressure [ 117/48 Standing] Orthostatic Blood Pressure [ 102/84 Sitting] Orthostatic Blood Pressure [ 109/76 Supine] Weight - Most Recent: 90.038 kg I&O - Last 24 hours: Intake & Output 07/30/19 07/31/19 07/31/19 22:59 06:59 14:59 Intake Total 830 100 740 Output Total 100 Balance 830 0 740 MILLY Results - Last 24 hrs: Microbiology 07/26/19 23:17 Aerobic Blood Culture - Preliminary Blood - Venous - Lab Draw NO GROWTH AFTER 4 DAYS Anaerobic Blood Culture - Preliminary NO GROWTH AFTER 4 DAYS 07/26/19 23:29 Aerobic Blood Culture - Preliminary Blood - Venous NO GROWTH AFTER 4 DAYS Anaerobic Blood Culture - Preliminary NO GROWTH AFTER 4 DAYS 07/28/19 15:15 Streptococcus pneumoniae Antigen (M - Final Urine 07/27/19 06:15 Gram Stain - Final Sputum - Induced Sputum Culture - Final (Mrsa) Staphylococcus Aureus Med Orders - Current: Current Medications Acetaminophen (Tylenol) 650 mg PO Q4H PRN PRN Reason: Pain (Mild 1-3)/fever Last Admin: 07/31/19 06:14 Dose: 650 mg Acetylcysteine (Mucomyst 20%) 1,000 mg INH Q6HRRT [facility] Last Admin: 07/31/19 08:37 Dose: 1,000 mg Allopurinol (Zyloprim) 100 mg PO DAILY [facility] Last Admin: 07/31/19 10:04 Dose: 100 mg Apixaban (Eliquis) 2.5 mg PO BID [facility] Last Admin: 07/31/19 10:05 Dose: 2.5 mg Benzonatate (Tessalon Perles) 200 mg PO TID [facility] Last Admin: 07/31/19 10:04 Dose: 200 mg Budesonide (Pulmicort) 0.5 mg NEB BID [facility] Last Admin: 07/31/19 08:37 Dose: 0.5 mg Cefdinir (Omnicef) 300 mg PO BID [facility] Last Admin: 07/31/19 10:05 Dose: 300 mg Doxycycline Hyclate (Vibramycin) 100 mg PO BID [facility] Last Admin: 07/31/19 10:04 Dose: 100 mg Flecainide Acetate (Tambocor) 100 mg PO BID [facility] Last Admin: 07/31/19 10:05 Dose: 100 mg Guaifenesin (Mucinex) 600 mg PO BID [facility] Last Admin: 07/31/19 10:04 Dose: 600 mg Ketorolac Tromethamine (Toradol) 15 mg IVPUSH Q6HR PRN PRN Reason: Pain (moderate 4-6) Stop: 08/01/19 06:20 Ondansetron HCl (Zofran Odt) 4 mg PO Q6H PRN PRN Reason: nausea, able to take PO Last Admin: 07/29/19 15:56 Dose: 4 mg Ondansetron HCl (Zofran) 4 mg IV Q6H PRN PRN Reason: Nausea/Vomiting Last Admin: 07/28/19 13:33 Dose: 4 mg Oseltamivir Phosphate (Tamiflu) 30 mg PO ONETIME ONE Stop: 07/31/19 12:16 Pantoprazole Sodium (Protonix) 40 mg PO DAILY [facility] Last Admin: 07/31/19 10:05 Dose: 40 mg Umeclidinium [place] 62.5 McgPt's Own Med 0 each INH DAILY [facility] Last Admin: 07/31/19 08:50 Dose: 1 each Psyllium Husk (Metamucil Sugar Free) 1 packet PO TIDAC [facility] Last Admin: 07/31/19 10:04 Dose: 1 packet Tamsulosin HCl (Flomax) 0.4 mg PO DAILY [facility] Last Admin: 07/31/19 10:04 Dose: 0.4 mg Trazodone HCl (Trazodone) 25 mg PO BEDTIME [facility] Last Admin: 07/30/19 20:58 Dose: 25 mg Discontinued Medications Acetylcysteine (Mucomyst 20%) 1,000 mg INH Q6HR [facility] Last Admin: 07/28/19 20:56 Dose: 1,000 mg Acetylcysteine (Mucomyst 20%) 800 mg NEB BIDRT ANIKA Acetylcysteine (Mucomyst 20%) 800 mg NEB BIDRT [facility] Acetylcysteine (Mucomyst 20%) 1,000 mg INH Q6HRRT [facility] Last Admin: 07/29/19 07:59 Dose: 1,000 mg Albuterol/Ipratropium (Duoneb 3.0-0.5 Mg/3 Ml) 3 ml NEB Q4H [facility] Stop: 07/27/19 20:16 Last Admin: 07/27/19 01:24 Dose: Not Given Albuterol/Ipratropium (Duoneb 3.0-0.5 Mg/3 Ml) 3 ml NEB Q4H [facility] Stop: 07/27/19 21:01 Last Admin: 07/27/19 01:05 Dose: 3 ml Albuterol/Ipratropium (Duoneb 3.0-0.5 Mg/3 Ml) 3 ml NEB Q4H [facility] Stop: 07/27/19 21:01 Last Admin: 07/27/19 20:00 Dose: 3 ml Allopurinol (Zyloprim) 100 mg PO DAILY [facility] Last Admin: 07/28/19 09:02 Dose: 100 mg Apixaban (Eliquis) 2.5 mg PO BID [facility] Last Admin: 07/28/19 21:24 Dose: 2.5 mg Azithromycin (Zithromax) 500 mg PO Q24H [facility] Last Admin: 07/29/19 12:43 Dose: 500 mg Barium Sulfate (E-Z-Paste) 454 gm PO ONETIME ONE Stop: 07/29/19 09:23 Last Admin: 07/29/19 09:30 Dose: 30 gm Barium Sulfate (Liquid E-Z Paque) 355 ml PO PREPRO ONE Stop: 07/29/19 09:23 Last Admin: 07/29/19 09:29 Dose: 100 ml Bisacodyl (Dulcolax) 10 mg RECTAL ONETIME ONE Stop: 07/31/19 08:16 Last Admin: 07/31/19 10:40 Dose: 10 mg Budesonide (Pulmicort) 0.5 mg NEB BIDRT [facility] Last Admin: 07/27/19 05:38 Dose: 0.5 mg Glycopyrrolate (Seebri Neohaler) 15.6 mcg IH BID [facility] Last Admin: 07/29/19 12:46 Dose: Not Given Cefepime HCl 2 gm/ Premix 50 mls @ 100 mls/hr IV Q24H [facility] Last Admin: 07/29/19 13:59 Dose: Not Given Vancomycin HCl 1 gm/Vancomycin HCl 250 mg/ Sodium Chloride 500 mls @ 333.333 mls/hr IV Q24H [facility] Last Admin: 07/28/19 16:14 Dose: 333.333 mls/hr Vancomycin HCl 1 gm/Vancomycin HCl 250 mg/ Sodium Chloride 250 mls @ 166.667 mls/hr IV Q24H [facility] Last Admin: 07/29/19 15:55 Dose: 166.667 mls/hr Ketorolac Tromethamine (Toradol) 30 mg IV Q6H PRN PRN Reason: Pain (moderate 4-6) Stop: 07/27/19 00:15 Levofloxacin (Levaquin) 750 mg PO NOW [facility] Levofloxacin (Levaquin) 750 mg PO Q48H [facility] Last Admin: 07/28/19 05:13 Dose: Not Given Levofloxacin (Levaquin) 750 mg PO Q48H [facility] Last Admin: 07/27/19 21:13 Dose: 750 mg Non-Formulary Medication (Flecainide) 0 mg PO BID [facility] Last Admin: 07/28/19 09:01 Dose: 1 mg Umeclidinium [place] 62.5 McgPt's Own Med 62.5 mcg INH DAILY [facility] Last Admin: 07/29/19 08:00 Dose: Not Given Flecainide 100 Mg (TabOwn Med) 100 mg PO BID [facility] Last Admin: 07/28/19 22:30 Dose: 100 mg Umeclidinium [place] 62.5 McgPt's Own Med 62.5 mcg INH DAILY [facility] Last Admin: 07/30/19 08:15 Dose: 62.5 mcg Nystatin (Nystatin Oral Syringe) 500,000 unit PO QID [facility] Last Admin: 07/28/19 21:24 Dose: 500,000 unit Nystatin (Nystatin Oral Syringe) 500,000 unit PO QID [facility] Last Admin: 07/30/19 09:02 Dose: 500,000 unit Omeprazole (Omeprazole) 20 mg PO DAILY [facility] Last Admin: 07/28/19 09:02 Dose: 20 mg Oseltamivir Phosphate (Tamiflu) 30 mg PO BID@0700,1900 [facility] Last Admin: 07/31/19 06:14 Dose: 30 mg Tamsulosin HCl (Flomax) 0.4 mg PO DAILY [facility] Last Admin: 07/28/19 09:01 Dose: 0.4 mg Trazodone HCl (Trazodone) 25 mg PO BEDTIME [facility] Last Admin: 07/28/19 21:25 Dose: 25 mg Vancomycin HCl (Pharmacy To Dose - Vancomycin) 1 dose .XX ASDIRECTED PRN PRN Reason: RX TO DOSE VANCO
[2019-07-31] MEDS ORDERED: Oseltamivir 30 MG Cap PO ONE (12:15)
== END 2019-07-31 13:06 | DRG 177 ==
LOC: JD.ED 17:54 → JD.MS 23:52 → OBSVTOIN 07-28 17:13
PROVIDERS: ADMIT Internal Medicine; ATTEND Internal Medicine
DX: J18.1 Lobar pneumonia, unspecified organism (principal); R53.1 Weakness; R09.02 Hypoxemia; J69.0 Pneumonitis due to inhalation of food and vomit; J96.21 Acute and chronic respiratory failure with hypoxia; I50.33 Acute on chronic diastolic (congestive) heart failure; N17.9 Acute kidney failure, unspecified; I13.0 Hypertensive heart and chronic kidney disease with heart failure and stage 1 through stage 4 chronic kidney disease, or unspecified chronic kidney disease; I49.5 Sick sinus syndrome; I48.92 Unspecified atrial flutter; B37.0 Candidal stomatitis; Z66 Do not resuscitate; Y95 Nosocomial condition; B96.0 Mycoplasma pneumoniae [M. pneumoniae] as the cause of diseases classified elsewhere; E78.5 Hyperlipidemia, unspecified; N18.3 Chronic kidney disease, stage 3 (moderate); R29.898 Other symptoms and signs involving the musculoskeletal system; R13.12 Dysphagia, oropharyngeal phase; J84.10 Pulmonary fibrosis, unspecified; T17.908A Unspecified foreign body in respiratory tract, part unspecified causing other injury, initial encounter; K21.9 Gastro-esophageal reflux disease without esophagitis; I48.91 Unspecified atrial fibrillation; H54.7 Unspecified visual loss; E78.00 Pure hypercholesterolemia, unspecified; J44.9 Chronic obstructive pulmonary disease, unspecified; K59.09 Other constipation; N40.0 Benign prostatic hyperplasia without lower urinary tract symptoms; M19.90 Unspecified osteoarthritis, unspecified site; R91.8 Other nonspecific abnormal finding of lung field; M10.9 Gout, unspecified; Z85.118 Personal history of other malignant neoplasm of bronchus and lung; Z79.899 Other long term (current) drug therapy; Z87.891 Personal history of nicotine dependence; Z90.2 Acquired absence of lung [part of]; Z86.14 Personal history of Methicillin resistant Staphylococcus aureus infection; Z99.81 Dependence on supplemental oxygen
CPT/HCPCS: 36415 ×3; 36600; 71045; 80048 ×2; 80053; 81001; 82607; 82746; 82803; 82962 ×2; 83605 ×2; 83735 ×3; 83874; 83880; 84100 ×3; 84145 ×2; 84484 ×2; 85007; 85025 ×2; 85027; 86738; 87040 ×2; 87070; 87077; 87086; 87186; 87205; 87486; 87581; 87632; 87798; 87899; 93005; 94640 ×11; 94668 ×3; 94761; 97162; 99285; A9270 ×31; J0692; J2405 ×2; J3370 ×2; J7040; 71250; 71250-26; 74230; 74230-26; 92526-GN; 92611-GN; 93010; 94660; 96365; 96367; 96375; 96376; 97110-GO; 97110-GP; 97116-GP; 97165-GO; 97530-GO; 99284; G0378; J7050; J7620-GY

== ENCOUNTER 2019-11-24 19:14 | Emergency (ER) | payer MEDICARE, BC ==
[2019-11-24 19:24] VITALS: BP 146/74; PULSE 63
[2019-11-24] MEDS ORDERED: HYDROmorphone 1 MG/ML Syringe IVPUSH STA (19:48)
[2019-11-24] MEDS ORDERED: Ondansetron 4 MG/2 ML SDV IVPUSH ONE (19:48)
--- NOTE | 2019-11-24 19:55 | EDM.PDOC ---
ED HPI GENERAL MEDICAL PROBLEM - General Chief Complaint: Abdominal Pain Stated Complaint: UPPER ABDOMINAL PAIN/VOMITING Time Seen by Provider: 11/24/19 19:22 Source of Information: Reports: Patient, Family () History Limitations: Reports: No Limitations - History of Present Illness INITIAL COMMENTS - FREE TEXT/NARRATIVE: Mr. Warner is a very pleasant 84-year-old man with a past medical history significant for paroxysmal atrial fibrillation and lung cancer, cured after a lobectomy around 2004, and dysphasia, on nectar thick liquids. He now presents to the ED stating that he developed midline abdominal pain - he draws a line from his epigastrium to his pubis - that developed around 15:00 to 16:00 this afternoon. He describes the pain as "steady" and states that it has progressively gotten worse. He also reports phlegm in his mouth for the past 2 weeks. He believes that it is coming from his stomach, although he denies nausea or retching. He also states that he has been coughing, therefore it is unclear if the phlegm is coming from his lungs or from his stomach. He also reports having a black bowel movement today, but states that he has been drinking prune juice on and off for the last 2 weeks. He reports a 4 pound weight loss over the past 3 to 4 months. He denies any recent fever, nausea, constipation, diarrhea, urinary symptoms, bloody bowel movements, joint aches, headaches, or rashes. The patient's PCP is Dr. Toribio Franco. His Repairer [employer] is Dr. Prieto Callahan. He received an influenza vaccine this season. Middle Abdomen Pain Score (Numeric/FACES): 9 - Related Data Allergies Allergy/AdvReac Type Severity Reaction Status Date / Time No Known Allergies Allergy Verified 11/24/19 19:24 Home Meds: Home Meds Ezetimibe [Zetia] 10 mg PO DAILY 02/27/15 [History] Omeprazole 20 mg PO DAILY 02/27/15 [History] Pravastatin [Pravachol] 40 mg PO DAILY 02/27/15 [History] Budesonide [Pulmicort] 0.5 mg NEB BID 11/20/16 [History] Flecainide [Tambocor] 100 mg PO BID 11/20/16 [History] Umeclidinium Lena [Incruse Ellipta*] 62.5 mcg INH DAILY 12/27/16 [History] guaiFENesin [Mucinex] 600 mg PO BID 10/12/18 [History] Tamsulosin [Flomax] 0.4 mg PO DAILY 11/14/18 [History] traZODone HCl [Trazodone HCl] 25 mg PO BEDTIME 02/26/19 [History] Apixaban [Eliquis] 2.5 mg PO Q12H #60 tablet 03/01/19 [Rx] Albuterol/Ipratropium [DuoNeb 3.0-0.5 MG/3 ML] 3 ml NEB Q4HR PRN 07/21/19 [ History] allopurinoL [Zyloprim] 100 mg PO DAILY 07/21/19 [History] Albuterol/Ipratropium [DuoNeb 3.0-0.5 MG/3 ML] 3 ml NEB Q8HR 2 Days #6 neb 07/25 [Rx] Past Medical History HEENT History: Reports: Allergic Rhinitis, Hard of Hearing, Impaired Vision Other HEENT History: Wears glasss. Cardiovascular History: Reports: Afib (paroxysmal), High Cholesterol, Hypertension, Other (See Below) (Sinuatrial node dysfunction) Respiratory History: Reports: Other (See Below) (Dysphagia) Gastrointestinal History: Reports: GERD, Hemorrhoids, Hiatal Hernia Genitourinary History: Reports: BPH, Chronic Renal Insuffiency Musculoskeletal History: Reports: Arthritis Oncologic (Cancer) History: Reports: Lung (s/p left upper lobectomy) - Infectious Disease History Infectious Disease History: Reports: MRSA (sputum Jul 2019) - Past Surgical History Cardiovascular Surgical History: Reports: Cardiac Ablation Oncologic Surgical History: Reports: Lobectomy (left upper, around 2004) Social & Family History - Family History Family Medical History: Noncontributory - Tobacco Use Smoking Status *Q: Former Smoker Used Tobacco, but Quit: Yes Month/Year Tobacco Last Used: 11/1999 - Caffeine Use Caffeine Use: Reports: Coffee - Recreational Drug Use Recreational Drug Use: No - Living Situation & Occupation Living situation: Reports: , Other ([facility]) Occupation: Retired ED ROS GENERAL - Review of Systems Review Of Systems: Comprehensive ROS is negative, except as noted in HPI. GI/Abdominal: Reports: Constipation ED EXAM, GI/ABD - Physical Exam Exam: See Below Exam Limited By: No Limitations General Appearance: Alert, WD/WN, No Apparent Distress Eyes: Bilateral: Normal Appearance, EOMI Ears: Normal External Exam, Hearing Loss Nose: Normal Inspection Throat/Mouth: Normal Inspection, Normal Lips, Normal Voice, No Airway Compromise Head: Atraumatic, Normocephalic Neck: Normal Inspection, Full Range of Motion Respiratory/Chest: No Respiratory Distress, Lungs Clear, Normal Breath Sounds, No Accessory Muscle Use Cardiovascular: Normal Peripheral Pulses, Regular Rate, Rhythm, No Edema, No Gallop, No JVD, No Murmur, No Rub GI/Abdominal Exam: Soft, No Organomegaly, No Distention, No Abnormal Bruit, No Mass, Rigid, Tender (Generalized, possibly worse on the left than the right), Abnormal Bowel Sounds (severely diminished) (Male) Exam: Deferred Rectal (Males) Exam: Normal Rectal Tone, Heme - Stool (brown), Other ( Incontinent of stool). No: Tenderness Back Exam: Normal Inspection, Full Range of Motion, NT Extremities: Normal Inspection, Normal Range of Motion, No Pedal Edema, Normal Capillary Refill Neurological: Alert, Oriented, Normal Cognition, No Motor/Sensory Deficits Psychiatric: Normal Affect Skin Exam: Warm, Dry, Intact, Normal Color, No Rash Course - Vital Signs Last Recorded V/S: Last Vital Signs Temp 36.1 C 11/24/19 19:21 Pulse 63 11/24/19 19:21 Resp 20 11/24/19 19:21 BP 146/74 H 11/24/19 19:21 Pulse Ox 95 11/24/19 19:21 - Orders/Labs/Meds Labs: Laboratory Tests 11/24/19 11/24/19 11/24/19 Range/Units 19:58 19:58 23:00 WBC 10.84 H (4.23-9.07) K/mm3 RBC 4.91 (4.63-6.08) M/mm3 Hgb 13.4 L D (13.7-17.5) gm/dl Hct 41.8 (40.1-51.0) % MCV 85.1 (79.0-92.2) fl MCH 27.3 (25.7-32.2) pg MCHC 32.1 L (32.2-35.5) g/dl RDW Std Deviation 50.1 H (35.1-43.9) fL Plt Count 240 (163-337) K/mm3 MPV 8.4 L (9.4-12.3) fl Neutrophils % (Manual) 81 H (40-60) % Band Neutrophils % 0 (0-10) % Lymphocytes % (Manual) 16 L (20-40) % Atypical Lymphs % 0 % Monocytes % (Manual) 3 (2-10) % Eosinophils % (Manual) 0 L (0.8-7.0) % Basophils % (Manual) 0 L (0.2-1.2) Platelet Estimate Adequate Poikilocytosis 1+ slight Anisocytosis 1+ slight Ovalocytes 1+ slight RBC Morph Comment Not Reportable Sodium 140 (136-145) mEq/L Potassium 4.1 (3.5-5.1) mEq/L Chloride 102 (98-107) mEq/L Carbon Dioxide 28 (21-32) mEq/L Anion Gap 14.1 (5-15) BUN 26 H (7-18) mg/dL Creatinine 1.9 H (0.7-1.3) mg/dL Est Cr Clr Drug Dosing 32.90 mL/min Estimated GFR (MDRD) 34 (>60) mL/min BUN/Creatinine Ratio 13.7 L (14-18) Glucose 123 H (83-115) mg/dL Calcium 9.3 (8.5-10.1) mg/dL Total Bilirubin 0.3 (0.2-1.0) mg/dL AST 19 (15-37) U/L ALT 23 (16-63) U/L Alkaline Phosphatase 145 H (46-116) U/L Total Protein 8.8 H (6.4-8.2) g/dl Albumin 4.2 (3.4-5.0) g/dl Globulin 4.6 gm/dL Albumin/Globulin Ratio 0.9 L (1-2) Lipase 198 (73-393) U/L Urine Color Yellow (Yellow) Urine Appearance Slt cloudy H (Clear) Urine pH 7.0 (5.0-8.0) Ur Specific [place] 1.015 (1.005-1.030) Urine Protein 1+ H (Negative) Urine Glucose (UA) Negative (Negative) Urine Ketones Negative (Negative) Urine Occult Blood Trace-intact H (Negative) Urine Nitrite Negative (Negative) Urine Bilirubin Negative (Negative) Urine Urobilinogen 0.2 (0.2-1.0) Ur Leukocyte Esterase Negative (Negative) Urine RBC 0-5 (0-5) /hpf Urine WBC 0-5 (0-5) /hpf Ur Squamous Epith Cells 0-5 (0-5) /hpf Urine Bacteria Occasional (FEW) /hpf Urine Mucus Few (FEW) /hpf Meds: Medications Discontinued Medications Generic Name Dose Route Start Last Admin Trade Name Freq PRN Reason Stop Dose Admin Diatrizoate Meglum/Diatrizoate Sod 60 ml 11/24/19 21:21 11/24/19 22:15 Gastrografin 37% PO 11/24/19 21:22 60 ml ONETIME ONE Administration Hydromorphone HCl 0.5 mg 11/24/19 19:48 11/24/19 20:04 Dilaudid IVPUSH 11/24/19 19:49 0.5 mg ONETIME STA Administration Sodium Chloride 1,000 mls @ 125 mls/hr 11/24/19 20:00 11/24/19 20:02 Normal Saline IV 125 mls/hr ASDIRECTED ANIKA Administration Iopamidol 100 ml 11/24/19 21:21 11/24/19 22:15 Isovue-300 (61%) IVPUSH 11/24/19 21:22 100 ml ONETIME ONE Administration Ondansetron HCl 4 mg 11/24/19 19:48 11/24/19 20:03 Zofran IVPUSH 11/24/19 19:49 4 mg ONETIME ONE Administration Sodium Chloride 10 ml 11/24/19 21:21 11/24/19 22:15 Saline Flush FLUSH 10 ml ONETIME PRN Administration KEEP VEIN OPEN - Re-Assessments/Exams Free Text/Narrative Re-Assessment/Exam: 11/24/19 19:50 While the patient is complaining of midline abdominal pain, extending from the epigastrium to the pubis, he is tender everywhere, more on the left than the right, and he has diminished bowel sounds some rigidity, very concerning for peritoneal signs. While the patient stated that his stool was black today, on rectal examination I found that he incontinent of mid-brown stool, heme- negative. I have ordered a CT scan of his abdomen and pelvis with oral and IV contrast, along with blood work and a urinalysis. In the meantime, the patient will be given IV Dilaudid, IV Zofran, and IV fluid. With respect to his complaint of phlegm, it is unclear if the phlegm is being produced from his lungs or from his stomach. His tells me that he is vomiting it up, but the patient denies nausea or dry heaves. For this reason, I have also ordered a chest x-ray, to be certain that there is no pneumonia. 11/24/19 20:59 Two-view chest radiograph is read by Dr. Tavera as: 1. Findings which are believed to be chronic as described above. 2. Nothing acute is definitely appreciated. 11/24/19 23:22 CT of the abdomen and pelvis with oral and IV contrast is read by Niru as: 1. Distended gallbladder containing sludge versus small calculi. 2. Nonacute findings as outlined above. The patient's CBC is remarkable for a WBC count elevated at 10.84, but with 0% bandemia. His Hgb is mildly depressed at 13.4, but with a Hct normal at 41.8. The remainder of his CBC is unremarkable. His CMP is remarkable for a BUN/Cr elevated at 26/1.9, with a blood glucose mildly elevated at 123. The remainder of his CMP is unremarkable. His lipase is within normal limits at 198. His urinalysis is unremarkable. The patient's BUN/Cr was 31/1.9 on 07/29/2019. 11/24/19 23:26 I reexamined the patient. He states that he feels somewhat better following the IV Dilaudid. He now has bowel sounds, and he did not grab my hand when I examined his abdomen, however, he continues to have generalized abdominal tenderness. 11/24/19 23:[address] Leonard at 23:27. She will come to the ED to evaluate the patient. 11/25/19 00:14 Dr. Leonard is evaluating the patient. She has reviewed the CT scan and noticed that his gallbladder is large, but that there is no associated inflammation. She also noticed that the patient has a large amount of stool, which may be responsible for his abdominal pain and tenderness. 11/25/19 00:30 Dr. Leonard has evaluated the patient and feels that his pain is due to constipation. She is recommending that he increase his fiber and fluid intake, considerably. He may also want to take some magnesium citrate in the morning. She feels he may safely be discharged home. She would like him to follow-up in her office this coming 11/29/2019. Departure - Departure Time of Disposition: 00:42 Disposition: Home, Self-Care 01 Condition: Good Clinical Impression: Abdominal pain, Constipation, Chronic renal insufficiency - Discharge Information *PRESCRIPTION DRUG MONITORING PROGRAM REVIEWED*: Not Applicable *COPY OF PRESCRIPTION DRUG MONITORING REPORT IN PATIENT GET: Not Applicable Instructions: Constipation, Adult, [id number], Chronic Kidney Disease, Adult Referrals: Toribio Franco MD [Primary Care Provider] - Prieto Callahan DO [Ordering Only Provider] - Forms: ED Department Discharge Additional Instructions: You were seen in the emergency room for progressively worsening midline abdominal pain since this afternoon. Workup in the ER included blood work, a urinalysis, a chest x-ray, and a CT scan of your abdomen and pelvis with oral and IV contrast. Your blood work found that you have chronic renal insufficiency, unchanged from July. Your CT scan found a large amount of stool. You were evaluated by the Surgeon Dr. Sintia Leonard, who feels that your abdominal pain is due to the constipation. She recommends that you increase the fiber in your diet, such as with MiraLAX, and plenty of fluid. You may consider drinking half of a bottle of magnesium citrate in the morning. If that does not induce a bowel movement, you can drink the second half a few hours later. Remember to stay adequately hydrated, going forward. Follow-up with Dr. Leonard in her office this coming 11/29/2019. If any other problems, please do not hesitate to return to the ER. Sepsis Event Note - Evaluation Sepsis Screening Result: No Definite Risk - Focused Exam Date Exam was Performed: 11/25/19 Time Exam was Performed: 08:45
[2019-11-24] MEDS ORDERED: Sodium Chloride 0.9% 1,000 ML IV SCH (20:00)
--- NOTE | 2019-11-24 20:50 | CR ---
Chest: 2 views of the chest were obtained. Comparison: Prior chest CT study of 07/28/19 and chest x-ray of 07/26/19. Chronic appearing change is seen within the right and left lungs. No definite acute parenchymal process is suspected. Heart size and mediastinum are normal. Bony structures shows degenerative endplate spurring within the spine with scattered disc space narrowing and minimal scoliosis. Impression: 1. Findings which are believed to be chronic as described above. 2. Nothing acute is definitely appreciated. Diagnostic code #2 This report was dictated in [place] Standard Time
[2019-11-24] MEDS ORDERED: Sodium Chloride 0.9% 10 ML Syringe FLUSH PRN (21:21)
[2019-11-24] MEDS ORDERED: Diatrizoate Meglumine/Diatrizoate Sodium 37% 120 ML Bottle PO ONE (21:21)
[2019-11-24] MEDS ORDERED: Iopamidol 612 MG/ML 100 ML Bottle IVPUSH ONE (21:21)
--- NOTE | 2019-11-25 00:31 | PCM.CONS ---
H&P History of Present Illness - General Date of Service: 11/25/19 Source of Information: Patient, Family, Provider History Limitations: Reports: No Limitations - History of Present Illness Initial Comments - Free Text/Narative: The patient is an 84 y/o male who presents for a one day history of upper abdominal pain and vomiting mucus. He has had small amounts of hard stool in the past 2-3 days. He denies any hematochezia or hematemesis. He denies any fever, he denies any prior occurrence. He does have a lifelong history of constipation and has been taking only prune juice lately. Middle Abdomen Pain Score (Numeric/FACES): 9 - Related Data Allergies/Adverse Reactions: Allergies Allergy/AdvReac Type Severity Reaction Status Date / Time No Known Allergies Allergy Verified 11/24/19 19:24 Home Medications: Home Meds Ezetimibe [Zetia] 10 mg PO DAILY 02/27/15 [History] Omeprazole 20 mg PO DAILY 02/27/15 [History] Pravastatin [Pravachol] 40 mg PO DAILY 02/27/15 [History] Budesonide [Pulmicort] 0.5 mg NEB BID 11/20/16 [History] Flecainide [Tambocor] 100 mg PO BID 11/20/16 [History] Umeclidinium [place] [Incruse Ellipta*] 62.5 mcg INH DAILY 12/27/16 [History] guaiFENesin [Mucinex] 600 mg PO BID 10/12/18 [History] Tamsulosin [Flomax] 0.4 mg PO DAILY 11/14/18 [History] traZODone HCl [Trazodone HCl] 25 mg PO BEDTIME 02/26/19 [History] Apixaban [Eliquis] 2.5 mg PO Q12H #60 tablet 03/01/19 [Rx] Albuterol/Ipratropium [DuoNeb 3.0-0.5 MG/3 ML] 3 ml NEB Q4HR PRN 07/21/19 [ History] allopurinoL [Zyloprim] 100 mg PO DAILY 07/21/19 [History] Albuterol/Ipratropium [DuoNeb 3.0-0.5 MG/3 ML] 3 ml NEB Q8HR 2 Days #6 neb 07/25 [Rx] Past Medical History HEENT History: Reports: Hard of Hearing, Impaired Vision Other HEENT History: Wears glasss. Cardiovascular History: Reports: Afib, Heart Failure, High Cholesterol, Hypertension, Other (See Below) Other Cardiovascular History: Sinoatrial node dysfunction Respiratory History: Reports: COPD, Other (See Below) Other Respiratory History: Aspiration, left lung mass, respiratory arrest, hypoxia, cough Gastrointestinal History: Reports: Chronic Constipation, GERD, Hemorrhoids, Other (See Below) Other Gastrointestinal History: hiatal hernia discovered Genitourinary History: Reports: Other (See Below) Other Genitourinary History: Chronic kidney disease stage III, balanoposthitis, hypertrophy of prostate Musculoskeletal History: Reports: Arthritis Neurological History: Reports: Other (See Below) Other Neuro History: Acute encephalopathy Psychiatric History: Reports: None Endocrine/Metabolic History: Reports: None Hematologic History: Reports: None Immunologic History: Reports: None Oncologic (Cancer) History: Reports: Lung, Other (See Below) Other Oncologic History: Malignant neoplasm of bronchus/lung Dermatologic History: Reports: None - Infectious Disease History Infectious Disease History: Reports: MRSA Other Infectious Disease History: MRSA sputum (07/27) - Past Surgical History Head Surgeries/Procedures: Reports: None HEENT Surgical History: Reports: None Cardiovascular Surgical History: Reports: Cardiac Ablation, Other (See Below) Other Cardiovascular Surgeries/Procedures: cardioversion Respiratory Surgical History: Reports: Thoracotomy, Other (See Below) Other Respiratory Surgeries/Procedures: Right lung lobectomy, right thoracotomy GI Surgical History: Reports: None Male Surgical History: Reports: None Endocrine Surgical History: Reports: None Neurological Surgical History: Reports: None Musculoskeletal Surgical History: Reports: None Oncologic Surgical History: Reports: Lobectomy Dermatological Surgical History: Reports: None Social & Family History - Family History Cardiac: Reports: [place] - Tobacco Use Smoking Status *Q: Former Smoker Used Tobacco, but Quit: Yes Month/Year Tobacco Last Used: 11/1999 - Caffeine Use Caffeine Use: Reports: Coffee - Recreational Drug Use Recreational Drug Use: No - Living Situation & Occupation Living situation: Reports: , Other ([facility]) Occupation: Retired H&P Review of Systems - Review of Systems: Review Of Systems: See Below General: Reports: No Symptoms HEENT: Reports: No Symptoms Pulmonary: Reports: Cough Cardiovascular: Reports: No Symptoms Gastrointestinal: Reports: Abdominal Pain, Nausea, Vomiting Genitourinary: Reports: No Symptoms Musculoskeletal: Reports: Back Pain Skin: Reports: No Symptoms Neurological: Reports: No Symptoms Exam - Exam Exam: See Below - Vital Signs Vital Signs: Last Vital Signs Temp 36.1 C 11/24/19 19:21 Pulse 63 11/24/19 19:21 Resp 20 11/24/19 19:21 BP 146/74 H 11/24/19 19:21 Pulse Ox 95 11/24/19 19:21 Weight: 90.718 kg - Exam Quality Assessment: No: Supplemental Oxygen General: Alert, Oriented HEENT: Conjunctiva Clear, EOMI Neck: Supple Lungs: Clear to Auscultation, Normal Respiratory Effort Cardiovascular: Regular Rate, Regular Rhythm GI/Abdominal Exam: Normal Bowel Sounds, Soft, Tender (in RUQ, periumbilical area , and epigastrium) Extremities: Normal Inspection, No Pedal Edema Peripheral Pulses: 2+: Dorsalis Pedis (L), Dorsalis Pedis (R) Skin: Warm, Dry, Intact Neurological: Cranial Nerves Intact Neuro Extensive - Mental Status: Oriented x3, Normal Mood/Affect - Patient Data Lab Results Last 24 hrs: Laboratory Results - last 24 hr 11/24/19 11/24/19 11/24/19 Range/Units 19:58 19:58 23:00 WBC 10.84 H (4.23-9.07) K/mm3 RBC 4.91 (4.63-6.08) M/mm3 Hgb 13.4 L D (13.7-17.5) gm/dl Hct 41.8 (40.1-51.0) % MCV 85.1 (79.0-92.2) fl MCH 27.3 (25.7-32.2) pg MCHC 32.1 L (32.2-35.5) g/dl RDW Std Deviation 50.1 H (35.1-43.9) fL Plt Count 240 (163-337) K/mm3 MPV 8.4 L (9.4-12.3) fl Neutrophils % (Manual) 81 H (40-60) % Band Neutrophils % 0 (0-10) % Lymphocytes % (Manual) 16 L (20-40) % Atypical Lymphs % 0 % Monocytes % (Manual) 3 (2-10) % Eosinophils % (Manual) 0 L (0.8-7.0) % Basophils % (Manual) 0 L (0.2-1.2) Platelet Estimate Adequate Poikilocytosis 1+ slight Anisocytosis 1+ slight Ovalocytes 1+ slight RBC Morph Comment Not Reportable Sodium 140 (136-145) mEq/L Potassium 4.1 (3.5-5.1) mEq/L Chloride 102 (98-107) mEq/L Carbon Dioxide 28 (21-32) mEq/L Anion Gap 14.1 (5-15) BUN 26 H (7-18) mg/dL Creatinine 1.9 H (0.7-1.3) mg/dL Est Cr Clr Drug Dosing 32.90 mL/min Estimated GFR (MDRD) 34 (>60) mL/min BUN/Creatinine Ratio 13.7 L (14-18) Glucose 123 H (83-115) mg/dL Calcium 9.3 (8.5-10.1) mg/dL Total Bilirubin 0.3 (0.2-1.0) mg/dL AST 19 (15-37) U/L ALT 23 (16-63) U/L Alkaline Phosphatase 145 H (46-116) U/L Total Protein 8.8 H (6.4-8.2) g/dl Albumin 4.2 (3.4-5.0) g/dl Globulin 4.6 gm/dL Albumin/Globulin Ratio 0.9 L (1-2) Lipase 198 (73-393) U/L Urine Color Yellow (Yellow) Urine Appearance Slt cloudy H (Clear) Urine pH 7.0 (5.0-8.0) Ur Specific [place] 1.015 (1.005-1.030) Urine Protein 1+ H (Negative) Urine Glucose (UA) Negative (Negative) Urine Ketones Negative (Negative) Urine Occult Blood Trace-intact H (Negative) Urine Nitrite Negative (Negative) Urine Bilirubin Negative (Negative) Urine Urobilinogen 0.2 (0.2-1.0) Ur Leukocyte Esterase Negative (Negative) Urine RBC 0-5 (0-5) /hpf Urine WBC 0-5 (0-5) /hpf Ur Squamous Epith Cells 0-5 (0-5) /hpf Urine Bacteria Occasional (FEW) /hpf Urine Mucus Few (FEW) /hpf Result Diagrams: 11/24/19 19:58 11/24/19 19:58 Sepsis Event Note - Evaluation Sepsis Screening Result: No Definite Risk - Focused Exam Vital Signs: Vital Signs Temp Pulse Resp BP Pulse Ox 11/24/19 19:21 36.1 C 63 20 146/74 H 95 Date Exam was Performed: 11/25/19 Time Exam was Performed: 00:43 Consult PN Assessment/Plan Procedures: Procedures AGENT NOS ASSAY W/OPTIC (07/28/19) AIRWAY INHALATION TREATMENT (07/28/19) ASSAY OF BLOOD/URIC ACID (02/27/19) ASSAY OF FOLIC ACID SERUM (07/28/19) ASSAY OF LACTIC ACID (07/28/19) ASSAY OF LIPASE (07/21/19) ASSAY OF MAGNESIUM (07/28/19) ASSAY OF MYOGLOBIN (07/28/19) ASSAY OF NATRIURETIC PEPTIDE (07/28/19) ASSAY OF PHOSPHORUS (07/28/19) ASSAY OF TROPONIN QUANT (07/28/19) ASSAY OF VANCOMYCIN (07/21/19) ASSAY THYROID STIM HORMONE (11/15/18) BL SMEAR W/DIFF WBC COUNT (07/28/19) BLOOD CULTURE FOR BACTERIA (07/28/19) BLOOD GASES ANY COMBINATION (07/28/19) C DIFF AMPLIFIED PROBE (08/04/17) C-REACTIVE PROTEIN (07/21/19) CARDIOVASCULAR STRESS TEST (08/12/15) CHEST WALL MANIPULATION (07/28/19) CHEST WALL MANIPULATION (07/21/19) CHEST WALL MANIPULATION (07/21/19) CHEST WALL MANIPULATION (11/15/18) CHEST WALL MANIPULATION (11/15/18) CHEST WALL MANIPULATION (09/14/18) CHEST WALL MANIPULATION (09/14/18) CHEST WALL MANIPULATION (08/04/17) CHEST WALL MANIPULATION (08/04/17) CHEST X-RAY 1 VIEW FRONTAL (08/04/17) CHEST X-RAY 2VW FRONTAL&LATL (08/04/17) CHYLMD PNEUM DNA AMP PROBE (07/28/19) COMPLETE CBC AUTOMATED (07/28/19) COMPLETE CBC W/AUTO DIFF WBC (07/28/19) COMPREHEN METABOLIC PANEL (07/28/19) CREATINE MB FRACTION (02/27/19) CT ABD & PELV W/CONTRAST (08/23/18) CT ABD & PELVIS W/O CONTRAST (07/21/19) CT HEAD/BRAIN W/O DYE (09/14/18) CT THORAX W/DYE (08/23/18) CT THORAX W/O DYE (07/28/19) CULTURE AEROBIC IDENTIFY (07/28/19) CULTURE OTHR SPECIMN AEROBIC (07/28/19) DETECT AGENT NOS DNA AMP (07/28/19) ECG MONIT/REPRT UP TO 48 HRS (09/10/14) ECG MONIT/REPRT UP TO 48 HRS (09/10/14) ECHO EXAM OF ABDOMEN (07/21/19) EGD BIOPSY SINGLE/MULTIPLE (10/15/18) ELECTROCARDIOGRAM TRACING (07/28/19) EMERGENCY DEPT VISIT (07/28/19) EMERGENCY DEPT VISIT (02/26/19) EMERGENCY DEPT VISIT (11/15/18) EMERGENCY DEPT VISIT (02/27/15) EVALUATE PT USE OF INHALER (12/28/16) EVALUATE SWALLOWING FUNCTION (07/21/19) FUNGI IDENTIFICATION YEAST (07/21/19) GAIT TRAINING THERAPY (07/28/19) GLUCOSE BLOOD TEST (07/28/19) HT MUSCLE IMAGE SPECT MULT (08/12/15) HYDRATE IV INFUSION ADD-ON (02/27/19) HYDRATION IV INFUSION INIT (02/27/15) INFLUENZA ASSAY W/OPTIC (11/15/18) INSERT BLADDER CATHETER (09/14/18) INSERT EMERGENCY AIRWAY (07/25/17) INSERT TEMP BLADDER CATH (07/21/19) M.PNEUMON DNA AMP PROBE (07/28/19) MANUAL THERAPY 1/> REGIONS (11/15/18) MEASURE BLOOD OXYGEN LEVEL (07/28/19) MEASURE BLOOD OXYGEN LEVEL (02/27/19) MEASURE BLOOD OXYGEN LEVEL (02/27/19) MEASURE BLOOD OXYGEN LEVEL (01/22/19) MEASURE BLOOD OXYGEN LEVEL (11/15/18) MEASURE BLOOD OXYGEN LEVEL (11/15/18) MEASURE BLOOD OXYGEN LEVEL (09/14/18) MEASURE BLOOD OXYGEN LEVEL (09/14/18) MEASURE BLOOD OXYGEN LEVEL (08/04/17) MEASURE BLOOD OXYGEN LEVEL (08/04/17) MEASURE BLOOD OXYGEN LEVEL (06/29/17) MEASURE BLOOD OXYGEN LEVEL (12/28/16) METABOLIC PANEL TOTAL CA (07/28/19) MICROBE SUSCEPTIBLE DISK (07/21/19) MICROBE SUSCEPTIBLE MILLY (07/28/19) MOTION FLUOROSCOPY/SWALLOW (07/28/19) MR-STAPH DNA AMP PROBE (07/21/19) MRI LUMBAR SPINE W/O DYE (06/02/17) MYCOPLASMA ANTIBODY (07/28/19) NEUROMUSCULAR REEDUCATION (12/28/16) ORAL FUNCTION THERAPY (07/28/19) OT EVAL HIGH COMPLEX 60 MIN (08/04/17) OT EVAL LOW COMPLEX 30 MIN (07/28/19) OT EVAL MOD COMPLEX 45 MIN (08/23/18) POS AIRWAY PRESSURE CPAP (07/28/19) PROCALCITONIN (PCT) (07/28/19) PROTHROMBIN TIME (02/27/19) PT EVAL LOW COMPLEX 20 MIN (02/27/19) PT EVAL MOD COMPLEX 30 MIN (07/28/19) RBC SED RATE AUTOMATED (02/27/19) RESP VIRUS 6-11 TARGETS (07/28/19) ROUTINE VENIPUNCTURE (07/28/19) SELF CARE MNGMENT TRAINING (07/21/19) SMEAR GRAM STAIN (07/28/19) THER/DIAG CONCURRENT INF (07/25/17) THER/PROPH/DIAG INJ IV PUSH (02/26/19) THER/PROPH/DIAG IV INF ADDON (12/28/16) THER/PROPH/DIAG IV INF INIT (07/28/19) THERAPEUTIC ACTIVITIES (07/28/19) THERAPEUTIC EXERCISES (07/28/19) THROMBOPLASTIN TIME PARTIAL (02/27/19) TOTAL CORTISOL (08/04/17) TTE W/DOPPLER COMPLETE (07/21/19) TX/PRO/DX INJ NEW DRUG ADDON (07/28/19) TX/PRO/DX INJ SAME DRUG LEGAL TRANSCRIPTIONIST (07/28/19) TX/PROPH/DG ADDL SEQ IV INF (07/28/19) UPR/LXTR ART STDY 3+ LVLS (01/26/18) URINALYSIS AUTO W/SCOPE (07/28/19) URINE CULTURE/COLONY COUNT (07/28/19) US URINE CAPACITY MEASURE (09/14/18) VITAMIN B-12 (07/28/19) WITHDRAWAL OF ARTERIAL BLOOD (07/28/19) X-RAY EXAM ABDOMEN 1 VIEW (02/27/19) X-RAY EXAM CHEST 1 VIEW (07/28/19) X-RAY EXAM CHEST 2 VIEWS (02/26/19) X-RAY EXAM OF FOOT (02/27/19) X-RAY EXAM OF SKULL (06/02/17) X-RAY XM SWLNG FUNCJ C+ (07/28/19) Problem List Initiated/Reviewed/Updated: Yes Plan: 84 y/o gentleman who presented with abdominal pain, CT scan performed with very large fecal burden in the right colon; also distended gallbladder - pt likely with constipation as the primary cause of his pain - needs a consistent bowel regimen with fiber and at least 6c water daily. Should add miralax BID until he has consistent soft stools - follow up in 5 days in clinic to determine any further problems from gallbladder - no acute surgical problem at this time Aleyda Smith MD General surgery
--- NOTE | 2019-11-25 07:22 | CT ---
CT abdomen and pelvis Technique: Multiple axial sections were obtained from above the dome of the diaphragm inferiorly through the pubic symphysis. Intravenous and oral contrast was utilized. Delayed images were also obtained through the abdomen and pelvis. Comparison: Prior CT abdomen and pelvis exam of 07/21/19. Findings: Scattered fibrosis is noted within both lung bases. No definite acute parenchymal change is seen within either lung base. Liver shows minimal intrahepatic biliary duct dilatation. Gallbladder is dilated. Common bile duct does not appear dilated. No definite shadowing gallstones are appreciated. No abnormality is appreciated within the pancreas. Kidneys show no hydronephrosis. Exophytic high density abnormality is noted off the right kidney measuring about 1.9 cm in size. This is most likely due to's hemorrhagic cyst and appears stable from prior CTs back to 11/20/16. Other smaller cortical cysts are seen within both kidneys. Aorta shows mild aneurysmal dilatation measuring about 2.7 cm in AP dimension and 3.6 cm in transverse dimension within the distal aorta. Atherosclerotic change is noted throughout the aorta into the iliac vessels. This aneurysm appears to be fairly stable back to previous CT exam of 08/23/18. No retroperitoneal adenopathy is seen. No mesenteric abnormalities are seen. Appendix is seen which is normal. Prostate gland is enlarged. Bilateral fat-containing inguinal hernias are noted. No free fluid or inflammatory change is appreciated. Small hiatal hernia is seen with gastroesophageal reflux of contrast. Delayed images show contrast within both distal ureters and within the bladder. Impression: 1. Dilated gallbladder with mild intrahepatic biliary duct dilatation but no dilatation of the CBD is seen. Gallbladder ultrasound could be considered to further evaluate. 2. Stable abdominal aortic aneurysm. 3. Stable renal lesions as noted above. 4. Nothing acute is otherwise seen. Diagnostic code #3 This report was dictated in [place] Standard Time I agree with preliminary report from [facility], finalized on 11/25/19, 12:17 AM Central Time
== END 2019-11-25 01:07 | disposition home or self-care (01) ==
LOC: JD.ED 19:14
DX: K59.00 Constipation, unspecified (principal); R10.10 Upper abdominal pain, unspecified; I13.0 Hypertensive heart and chronic kidney disease with heart failure and stage 1 through stage 4 chronic kidney disease, or unspecified chronic kidney disease; N18.3 Chronic kidney disease, stage 3 (moderate); I50.9 Heart failure, unspecified; J44.9 Chronic obstructive pulmonary disease, unspecified; I48.91 Unspecified atrial fibrillation; K21.9 Gastro-esophageal reflux disease without esophagitis; N40.0 Benign prostatic hyperplasia without lower urinary tract symptoms; Z79.01 Long term (current) use of anticoagulants; Z79.51 Long term (current) use of inhaled steroids; Z79.899 Other long term (current) drug therapy; Z87.891 Personal history of nicotine dependence
CPT/HCPCS: 36415; 71046; 74177; 80053; 81001; 83690; 85007; 85027; 96361; 96374; 96375; 99284; J1170; J2405; J7030; Q9963; Q9967

== ENCOUNTER 2019-11-25 14:42 | Inpatient (IN) | payer MEDICARE, BC ==
[2019-11-25] MEDS ORDERED: Sodium Chloride 0.9% 10 ML Syringe FLUSH PRN (15:20)
[2019-11-25] MEDS ORDERED: Albuterol/Ipratropium 3.0-0.5 MG/3 ML Neb Soln NEB ONE (15:21)
--- NOTE | 2019-11-25 15:22 | EDM.PDOC ---
<Mellisa Hannoney - Last Filed: 11/25/19 15:58> ED HPI GENERAL MEDICAL PROBLEM - General Chief Complaint: Gastrointestinal Problem Stated Complaint: [facility] Time Seen by Provider: 11/25/19 14:57 Source of Information: Reports: Patient, Significant Other History Limitations: Reports: No Limitations - History of Present Illness INITIAL COMMENTS - FREE TEXT/NARRATIVE: Patient is a pleasant 84-year-old male who was brought into the ED by ambulance for decreased oxygen saturation, abdominal pain, and constipation. Patient's is at bedside and answers most of the questions as the patient was in and out of sleep. The states the patient was in the ED last evening for abdominal pain and was told he was severely constipated and sent home with various strategies to help with constipation. She reports this morning at about 0530 he had taken miralax and prune juice with his breakfast. Then at 0600 he had an episode of emesis that was brown liquid. denies seeing blood or coffee-ground like consistency in emesis. She reports he had three small bowel movements this morning after breakfast. Patient denies pain with the bowel movements or seeing blood in the stool. He then went to take a nap and when his went to check on him a few hours later she noted brown spit up on his pillow and face. She checked his oxygen saturation and it was ranging between 70 -79% so she called the ambulance. Patient denies abdominal pain at the time of interview and states he has not been passing gas that much. He has not been taking much food in, but has been trying to drink fluids. Denies chest pain and shortness of breath. Of note, states that he has had episodes of emesis intermittently for the past week. She states that he has typically had at least 1 episode of emesis per day. - Related Data Allergies Allergy/AdvReac Type Severity Reaction Status Date / Time No Known Allergies Allergy Verified 11/25/19 14:58 Home Meds: Home Meds Ezetimibe [Zetia] 10 mg PO DAILY 02/27/15 [History] Omeprazole 20 mg PO DAILY 02/27/15 [History] Pravastatin [Pravachol] 40 mg PO DAILY 02/27/15 [History] Budesonide [Pulmicort] 0.5 mg NEB BID 11/20/16 [History] Flecainide [Tambocor] 100 mg PO BID 11/20/16 [History] Umeclidinium Clements [Incruse Ellipta*] 62.5 mcg INH DAILY 12/27/16 [History] guaiFENesin [Mucinex] 600 mg PO BID 10/12/18 [History] Tamsulosin [Flomax] 0.4 mg PO DAILY 11/14/18 [History] traZODone HCl [Trazodone HCl] 25 mg PO BEDTIME 02/26/19 [History] Apixaban [Eliquis] 2.5 mg PO Q12H #60 tablet 03/01/19 [Rx] Albuterol/Ipratropium [DuoNeb 3.0-0.5 MG/3 ML] 3 ml NEB Q4HR PRN 07/21/19 [ History] allopurinoL [Zyloprim] 100 mg PO DAILY 07/21/19 [History] Albuterol/Ipratropium [DuoNeb 3.0-0.5 MG/3 ML] 3 ml NEB Q8HR 2 Days #6 neb 07/25 [Rx] Past Medical History HEENT History: Reports: Allergic Rhinitis, Hard of Hearing, Impaired Vision Other HEENT History: Wears glasss. Cardiovascular History: Reports: Afib, High Cholesterol, Hypertension, Other ( See Below) Other Cardiovascular History: Sinoatrial node dysfunction Respiratory History: Reports: Other (See Below) Other Respiratory History: Aspiration, left lung mass, respiratory arrest, hypoxia, cough Gastrointestinal History: Reports: GERD, Hemorrhoids, Hiatal Hernia Other Gastrointestinal History: hiatal hernia discovered Genitourinary History: Reports: BPH, Chronic Renal Insuffiency Other Genitourinary History: Chronic kidney disease stage III, balanoposthitis, hypertrophy of prostate Musculoskeletal History: Reports: Arthritis Neurological History: Reports: Other (See Below) Other Neuro History: Acute encephalopathy Psychiatric History: Reports: None Endocrine/Metabolic History: Reports: None Hematologic History: Reports: None Immunologic History: Reports: None Oncologic (Cancer) History: Reports: Lung Other Oncologic History: Malignant neoplasm of bronchus/lung Dermatologic History: Reports: None - Infectious Disease History Infectious Disease History: Reports: MRSA Other Infectious Disease History: MRSA sputum (07/27) - Past Surgical History Head Surgeries/Procedures: Reports: None Cardiovascular Surgical History: Reports: Cardiac Ablation Endocrine Surgical History: Reports: None Neurological Surgical History: Reports: None Oncologic Surgical History: Reports: Lobectomy Dermatological Surgical History: Reports: None Social & Family History - Family History Family Medical History: Noncontributory Cardiac: Reports: IA - Tobacco Use Smoking Status *Q: Former Smoker Used Tobacco, but Quit: Yes Month/Year Tobacco Last Used: 1999 - Caffeine Use Caffeine Use: Reports: None - Recreational Drug Use Recreational Drug Use: No - Living Situation & Occupation Living situation: Reports: , Other ([facility]) Occupation: Retired ED ROS GENERAL - Review of Systems Review Of Systems: See Below Constitutional: Reports: Decreased Appetite. Denies: Fever, Chills, Weakness HEENT: Reports: Other (dried brown spit up on edges of mouth from when found him). Denies: Throat Pain, Vertigo Respiratory: Reports: No Symptoms. Denies: Shortness of Breath, Cough Cardiovascular: Reports: No Symptoms. Denies: Chest Pain, Edema, Lightheadedness, Syncope GI/Abdominal: Reports: Abdominal Pain, Constipation (seen in ED last night- tried Miralax and prune juice this morning- 3 small bowel movements this morning ), Decreased Appetite, Vomiting (episode of brown liquidy emesis this morning at 0600). Denies: Bloody Stool, Diarrhea, Flatus, Hematemesis, Nausea : Reports: No Symptoms. Denies: Dysuria Musculoskeletal: Reports: No Symptoms. Denies: Neck Pain, Back Pain Skin: Reports: No Symptoms. Denies: Rash, Erythema Neurological: Reports: No Symptoms. Denies: Dizziness, Headache, Numbness, Syncope, Tingling, Weakness Psychiatric: Reports: No Symptoms Hematologic/Lymphatic: Reports: No Symptoms ED EXAM, GI/ABD - Physical Exam Exam: See Below Exam Limited By: No Limitations General Appearance: Alert, WD/WN, No Apparent Distress Throat/Mouth: Other (Dried brown sputum on right corner of mouth and brown sputum with darker chunks on buccal mucosa, roof of mouth, and posterior oropharynx) Head: Atraumatic Neck: Normal Inspection, Supple, Non-Tender, Full Range of Motion Respiratory/Chest: No Respiratory Distress, No Accessory Muscle Use, Chest Non- Tender, Decreased Breath Sounds (bilateral lower lobes), Rhonchi (bilateral bases) Cardiovascular: Normal Peripheral Pulses, Regular Rate, Rhythm, No Edema, No Murmur, No Rub GI/Abdominal Exam: Soft, Non-Tender, No Organomegaly, No Distention, No Abnormal Bruit, No Mass, Abnormal Bowel Sounds (decreased in all four quadrants) Back Exam: Normal Inspection, Full Range of Motion Extremities: Normal Inspection, Normal Range of Motion, Non-Tender, No Pedal Edema, Normal Capillary Refill Neurological: Alert, Oriented, Normal Cognition, No Motor/Sensory Deficits Psychiatric: Normal Affect, Normal Mood Skin Exam: Warm, Dry, Intact, Normal Color, No Rash Course - Vital Signs Last Recorded V/S: Last Vital Signs Temp 97.4 F 11/25/19 14:45 Pulse 107 H 11/25/19 14:45 Resp 34 H 11/25/19 14:45 BP 110/56 L 11/25/19 14:45 Pulse Ox 92 L 11/25/19 15:22 - Orders/Labs/Meds Orders: Active Orders 24 hr Category Date Time Status Cardiac Monitoring [RC] . DIRECTED Care 11/25/19 15:20 Active EKG Documentation Completion [RC] STAT Care 11/25/19 15:21 Active Oxygen Therapy [RC] PRN Care 11/25/19 15:20 Active Peripheral IV Care [RC] . DIRECTED Care 11/25/19 15:21 Active RT Aerosol Therapy [RC] ASDIRECTED Care 11/25/19 15:22 Active CULTURE BLOOD [BC] Stat Lab 11/25/19 16:00 Ordered CULTURE BLOOD [BC] Stat Lab 11/25/19 16:00 Ordered LACTIC ACID [CHEM] Stat Lab 11/25/19 16:00 Ordered PRO B-TYPE NATRIUR PEPT,BNPPRO [CHEM] Stat Lab 11/25/19 15:36 Received Sodium Chloride 0.9% [Saline Flush] Med 11/25/19 15:20 Active 10 ml FLUSH ASDIRECTED PRN Blood Culture x2 Reflex Set [OM.PC] Stat Oth 11/25/19 15:59 Ordered Peripheral IV Insertion Adult [OM.PC] Stat Oth 11/25/19 15:20 Ordered Medication Orders Sodium Chloride (Saline Flush) 10 ml FLUSH ASDIRECTED PRN PRN Reason: Keep Vein Open Last Admin: 11/25/19 15:58 Dose: 10 ml Labs: Laboratory Tests 11/25/19 11/25/19 Range/Units 15:36 15:36 WBC 23.12 H (4.23-9.07) K/mm3 RBC 4.98 (4.63-6.08) M/mm3 Hgb 13.8 (13.7-17.5) gm/dl Hct 42.3 (40.1-51.0) % MCV 84.9 (79.0-92.2) fl MCH 27.7 (25.7-32.2) pg MCHC 32.6 (32.2-35.5) g/dl RDW Std Deviation 49.8 H (35.1-43.9) fL Plt Count 280 (163-337) K/mm3 MPV 8.7 L (9.4-12.3) fl Neut % (Auto) 93.1 H (34.0-67.9) % Lymph % (Auto) 1.6 L (21.8-53.1) % [place] % (Auto) 5.2 L (5.3-12.2) % Eos % (Auto) 0 L (0.8-7.0) Baso % (Auto) 0.1 (0.1-1.2) % Neut # (Auto) 21.52 H (1.78-5.38) K/mm3 Lymph # (Auto) 0.37 L (1.32-3.57) K/mm3 [place] # (Auto) 1.21 H (0.30-0.82) K/mm3 Eos # (Auto) 0.00 L (0.04-0.54) K/mm3 Baso # (Auto) 0.02 (0.01-0.08) K/mm3 Manual Slide Review Abnormal smear Sodium 139 (136-145) mEq/L Potassium 4.2 (3.5-5.1) mEq/L Chloride 103 (98-107) mEq/L Carbon Dioxide 26 (21-32) mEq/L Anion Gap 14.2 (5-15) BUN 34 H (7-18) mg/dL Creatinine 2.1 H (0.7-1.3) mg/dL Est Cr Clr Drug Dosing 29.77 mL/min Estimated GFR (MDRD) 30 (>60) mL/min BUN/Creatinine Ratio 16.2 (14-18) Glucose 115 (83-115) mg/dL Calcium 9.2 (8.5-10.1) mg/dL Total Bilirubin 0.5 (0.2-1.0) mg/dL AST 21 (15-37) U/L ALT 20 (16-63) U/L Alkaline Phosphatase 124 H (46-116) U/L Troponin I < 0.017 (0.00-0.056) ng/mL Total Protein 7.7 (6.4-8.2) g/dl Albumin 3.5 (3.4-5.0) g/dl Globulin 4.2 gm/dL Albumin/Globulin Ratio 0.8 L (1-2) Meds: Medications Generic Name Dose Route Start Last Admin Trade Name Freq PRN Reason Stop Dose Admin Sodium Chloride 10 ml 11/25/19 15:20 11/25/19 15:58 Saline Flush FLUSH 10 ml ASDIRECTED PRN Administration Keep Vein Open Discontinued Medications Generic Name Dose Route Start Last Admin Trade Name Freq PRN Reason Stop Dose Admin Albuterol/Ipratropium 3 ml 11/25/19 15:21 11/25/19 15:43 Duoneb 3.0-0.5 Mg/3 Ml NEB 11/25/19 15:22 3 ml ONETIME ONE Administration Piperacillin Sod/Tazobactam 100 mls @ 200 mls/hr 11/25/19 15:59 11/25/19 16: 08 Sod 4.5 gm/ Sodium Chloride IV 11/25/19 16:28 Not Given ONETIME ONE Piperacillin Sod/Tazobactam 100 mls @ 200 mls/hr 11/25/19 16:06 11/25/19 16: 34 Sod 4.5 gm/ Sodium Chloride IV 11/25/19 16:35 200 mls/hr ONETIME ONE Administration Ceftriaxone Sodium 2 gm/ 100 mls @ 200 mls/hr 11/25/19 16:09 Sodium Chloride IV 11/25/19 16:38 ONETIME ONE Departure - Departure Disposition: Admitted As Inpatient 68 Clinical Impression: Hypoxia, Renal insufficiency Pneumonia Qualifiers: Pneumonia type: aspiration pneumonia Aspiration pneumonia type: due to vomit Laterality: unspecified laterality Lung location: unspecified part of lung Qualified Code(s): J69.0 - Pneumonitis due to inhalation of food and vomit - Discharge Information Referrals: Toribio Franco MD [Primary Care Provider] - Forms: ED Department Discharge Sepsis Event Note - Evaluation Sepsis Screening Result: No Definite Risk - Focused Exam Vital Signs: Vital Signs Temp Pulse Resp BP Pulse Ox Pulse Ox 11/25/19 15:22 92 L 11/25/19 14:45 97.4 F 107 H 34 H 110/56 L 75 L Date Exam was Performed: 11/25/19 Time Exam was Performed: 15:58 - My Orders Last 24 Hours: My Active Orders 11/25/19 15:20 Cardiac Monitoring [RC] . DIRECTED Oxygen Therapy [RC] PRN Sodium Chloride 0.9% [Saline Flush] 10 ml FLUSH ASDIRECTED PRN Peripheral IV Insertion Adult [OM.PC] Stat 11/25/19 15:21 EKG Documentation Completion [RC] STAT Peripheral IV Care [RC] . DIRECTED 11/25/19 15:22 RT Aerosol Therapy [RC] ASDIRECTED 11/25/19 15:36 PRO B-TYPE NATRIUR PEPT,BNPPRO [CHEM] Stat 11/25/19 15:59 Blood Culture x2 Reflex Set [OM.PC] Stat 11/25/19 16:00 CULTURE BLOOD [BC] Stat CULTURE BLOOD [BC] Stat LACTIC ACID [CHEM] Stat - Assessment/Plan Last 24 Hours: My Active Orders 11/25/19 15:20 Cardiac Monitoring [RC] . DIRECTED Oxygen Therapy [RC] PRN Sodium Chloride 0.9% [Saline Flush] 10 ml FLUSH ASDIRECTED PRN Peripheral IV Insertion Adult [OM.PC] Stat 11/25/19 15:21 EKG Documentation Completion [RC] STAT Peripheral IV Care [RC] . DIRECTED 11/25/19 15:22 RT Aerosol Therapy [RC] ASDIRECTED 11/25/19 15:36 PRO B-TYPE NATRIUR PEPT,BNPPRO [CHEM] Stat 11/25/19 15:59 Blood Culture x2 Reflex Set [OM.PC] Stat 11/25/19 16:00 CULTURE BLOOD [BC] Stat CULTURE BLOOD [BC] Stat LACTIC ACID [CHEM] Stat <Gee Tan - Last Filed: 11/25/19 16:48> Course - Re-Assessments/Exams Free Text/Narrative Re-Assessment/Exam: 11/25/19 16:40 I examined the patient myself and I agree with Nicole's assessment and plan. I ordered oxygen, duoneb, CXR and labs. His CXR shows bilateral infiltrates. That is a marked difference from last night. I then ordered lactic acid and blood cultures. I also ordered rocephin 2 grams and zosyn 4.5grams. His WBC was elevated at 23.12. His Hgb was low at 10.84. His creatinine is elevated at 2.1. His troponin is negative. I feel he needs to be admitted. I called Dr Waters and he agreed to the admission. Departure - Departure Time of Disposition: 16:45 Condition: Poor Sepsis Event Note - Focused Exam Date Exam was Performed: 11/25/19 Time Exam was Performed: 16:40
[2019-11-25] MEDS ORDERED: Piperacillin/Tazobactam 4.5 GM in Sodium Chloride 0.9% 100 ML IV ONE ×2 (15:59→16:06)
[2019-11-25] MEDS ORDERED: cefTRIAXone 2 GM in Sodium Chloride 0.9% 100 ML IV ONE (16:09)
--- NOTE | 2019-11-25 16:20 | CR ---
Chest: Portable view of the chest was obtained. Comparison: Prior chest x-ray of 11/24/19. Increased density within the left lung base from prior study. Decreased volume loss seen of the right lung. This may relate to rotation or poor inspiratory effort. Chronic increased lung markings are noted. Heart size is normal. Bony structures are grossly intact. Impression: 1. Increased density within the left lung base from prior exam. Findings could represent aspiration as well as pneumonia. 2. Other findings as noted above. Diagnostic code #3 Study was dictated in [place] Standard Time
[2019-11-25] MEDS: Flecainide 50 MG Tab PO SCH (20:10)
[2019-11-25] MEDS: traZODone 50 MG Tab PO SCH (20:11)
[2019-11-25] MEDS: guaiFENesin 600 MG Tab.ER PO SCH (20:12)
[2019-11-25] MEDS ORDERED: Pantoprazole 40 MG Vial IVPUSH ONE (20:51)
[2019-11-25] MEDS ORDERED: Lactated Ringers 500 ML IV ONE (20:58)
[2019-11-25] MEDS ORDERED: Apixaban 2.5 MG Tab PO SCH (21:00)
--- NOTE | 2019-11-25 21:08 | PCM.HP.2 ---
H&P History of Present Illness - General Date of Service: 11/25/19 Admit Problem/Dx: Admission Diagnosis/Problem Admission Diagnosis/Problem Aspiration pneumonia - History of Present Illness Initial Comments - Free Text/Narative: Family was not available at time of interview, therefore most of the history was obtained through emergency room providers notes: 89-year-old male who returns to the emergency department by EMS after being seen yesterday with abdominal pain and constipation. Patient was sent home with options for treatment of his constipation. At this morning at approximately 530 he had taken MiraLAX and prune juice with his breakfast. At 6 :00 he had an emesis that was brown liquid. denies seeing blood or coffee- ground emesis. reported that he had 3 small bowel movements this morning after breakfast. Patient after breakfast then decided to take a nap. His noted that he was spitting brown up and during the nap it was on his pillow and face. At that time she checked his oxygen saturation and it was between 70 and 79%. In the emergency room patient denied any abdominal pain. I did speak with him also personally and he did not complain of any pain. When I interviewed him he was resting comfortably and wearing oxygen via nasal cannula. Patient apparently has been having episodes of emesis intermittently for the last week. Treated on the emergency room tonight showed bilateral infiltrates. - Related Data Allergies/Adverse Reactions: Allergies Allergy/AdvReac Type Severity Reaction Status Date / Time No Known Allergies Allergy Verified 11/25/19 18:35 Home Medications: Home Meds Ezetimibe [Zetia] 10 mg PO DAILY 02/27/15 [History] Omeprazole 20 mg PO DAILY 02/27/15 [History] Pravastatin [Pravachol] 40 mg PO DAILY 02/27/15 [History] Budesonide [Pulmicort] 0.5 mg NEB BID 11/20/16 [History] Flecainide [Tambocor] 100 mg PO BID 11/20/16 [History] Umeclidinium [place] [Incruse Ellipta*] 62.5 mcg INH DAILY 12/27/16 [History] guaiFENesin [Mucinex] 600 mg PO BID 10/12/18 [History] Tamsulosin [Flomax] 0.4 mg PO DAILY 11/14/18 [History] traZODone HCl [Trazodone HCl] 25 mg PO BEDTIME 02/26/19 [History] allopurinoL [Zyloprim] 100 mg PO DAILY 07/21/19 [History] Albuterol/Ipratropium [DuoNeb 3.0-0.5 MG/3 ML] 3 ml NEB Q4HR PRN 11/25/19 [ History] Apixaban [Eliquis] 2.5 mg PO BID 11/25/19 [History] Donepezil [Aricept] 5 mg PO DAILY 11/25/19 [History] Furosemide [Lasix] 20 mg PO DAILY 11/25/19 [History] Past Medical History HEENT History: Reports: Allergic Rhinitis, Hard of Hearing, Impaired Vision Other HEENT History: Wears glasss. Cardiovascular History: Reports: Afib, High Cholesterol, Hypertension, Other ( See Below) Other Cardiovascular History: Sinoatrial node dysfunction Respiratory History: Reports: Other (See Below) Other Respiratory History: Aspiration, left lung mass, respiratory arrest, hypoxia, cough Gastrointestinal History: Reports: GERD, Hemorrhoids, Hiatal Hernia Other Gastrointestinal History: hiatal hernia discovered Genitourinary History: Reports: BPH, Chronic Renal Insuffiency Other Genitourinary History: Chronic kidney disease stage III, Musculoskeletal History: Reports: Arthritis Neurological History: Reports: Other (See Below) Other Neuro History: Acute encephalopathy Psychiatric History: Reports: None Endocrine/Metabolic History: Reports: None Hematologic History: Reports: None Immunologic History: Reports: None Oncologic (Cancer) History: Reports: Lung Other Oncologic History: Malignant neoplasm of bronchus/lung Dermatologic History: Reports: None - Infectious Disease History Infectious Disease History: Reports: MRSA Other Infectious Disease History: MRSA sputum (07/27) - Past Surgical History Head Surgeries/Procedures: Reports: None Cardiovascular Surgical History: Reports: Cardiac Ablation Other Cardiovascular Surgeries/Procedures: cardioversion Endocrine Surgical History: Reports: None Neurological Surgical History: Reports: None Oncologic Surgical History: Reports: Lobectomy Dermatological Surgical History: Reports: None Social & Family History - Family History Family Medical History: Noncontributory Cardiac: Reports: SC - Tobacco Use Smoking Status *Q: Former Smoker Used Tobacco, but Quit: Yes Month/Year Tobacco Last Used: 1999 - Caffeine Use Caffeine Use: Reports: Coffee Other Caffeine Use: 2 cups - Recreational Drug Use Recreational Drug Use: No - Living Situation & Occupation [facility] Reports[facility]ation[facility] Retired H&P Review of Systems - Review of Systems: Review Of Systems: Comprehensive ROS is negative, except as noted in HPI. Exam - Exam Exam: See Below - Vital Signs Vital Signs: Last Vital Signs Temp 97.4 F 11/25/19 14:45 Pulse 107 H 11/25/19 14:45 Resp 34 H 11/25/19 14:45 BP 110/56 L 11/25/19 14:45 Pulse Ox 92 L 11/25/19 15:22 Weight: 200 lb 4.8 oz - Exam Quality Assessment: Supplemental Oxygen General: Lethargic HEENT: Conjunctiva Clear, Mucosa Moist & [place], Other (Dried brown liquid on the right side of his mouth) Neck: Supple, Trachea Midline, 2 Lungs: Normal Respiratory Effort (Increased respiratory rate with accessory muscles), Rhonchi (Upper airway noises making it difficult to auscultate lungs) Cardiovascular: Irregular Rhythm Extremities: Normal Inspection, No Pedal Edema, Normal Capillary Refill Skin: Warm, Dry Neuro Extensive - Mental Status: Alert, Normal Mood/Affect Psychiatric: Alert - Patient Data Lab Results Last 24 hrs: Laboratory Results - last 24 hr 11/25/19 11/25/19 11/25/19 Range/Units 15:36 15:36 15:36 WBC 23.12 H (4.23-9.07) K/mm3 RBC 4.98 (4.63-6.08) M/mm3 Hgb 13.8 (13.7-17.5) gm/dl Hct 42.3 (40.1-51.0) % MCV 84.9 (79.0-92.2) fl MCH 27.7 (25.7-32.2) pg MCHC 32.6 (32.2-35.5) g/dl RDW Std Deviation 49.8 H (35.1-43.9) fL Plt Count 280 (163-337) K/mm3 MPV 8.7 L (9.4-12.3) fl Neut % (Auto) 93.1 H (34.0-67.9) % Lymph % (Auto) 1.6 L (21.8-53.1) % [place] % (Auto) 5.2 L (5.3-12.2) % Eos % (Auto) 0 L (0.8-7.0) Baso % (Auto) 0.1 (0.1-1.2) % Neut # (Auto) 21.52 H (1.78-5.38) K/mm3 Lymph # (Auto) 0.37 L (1.32-3.57) K/mm3 [place] # (Auto) 1.21 H (0.30-0.82) K/mm3 Eos # (Auto) 0.00 L (0.04-0.54) K/mm3 Baso # (Auto) 0.02 (0.01-0.08) K/mm3 Manual Slide Review Abnormal smear Sodium 139 (136-145) mEq/L Potassium 4.2 (3.5-5.1) mEq/L Chloride 103 (98-107) mEq/L Carbon Dioxide 26 (21-32) mEq/L Anion Gap 14.2 (5-15) BUN 34 H (7-18) mg/dL Creatinine 2.1 H (0.7-1.3) mg/dL Est Cr Clr Drug Dosing 29.77 mL/min Estimated GFR (MDRD) 30 (>60) mL/min BUN/Creatinine Ratio 16.2 (14-18) Glucose 115 (83-115) mg/dL Lactic Acid (0.4-2.0) mmol/L Calcium 9.2 (8.5-10.1) mg/dL Total Bilirubin 0.5 (0.2-1.0) mg/dL AST 21 (15-37) U/L ALT 20 (16-63) U/L Alkaline Phosphatase 124 H (46-116) U/L Troponin I < 0.017 (0.00-0.056) ng/mL NT-Pro-B Natriuret Pep 2572 H (0-450) pg/mL Total Protein 7.7 (6.4-8.2) g/dl Albumin 3.5 (3.4-5.0) g/dl Globulin 4.2 gm/dL Albumin/Globulin Ratio 0.8 L (1-2) 11/25/19 Range/Units 16:35 WBC (4.23-9.07) K/mm3 RBC (4.63-6.08) M/mm3 Hgb (13.7-17.5) gm/dl Hct (40.1-51.0) % MCV (79.0-92.2) fl MCH (25.7-32.2) pg MCHC (32.2-35.5) g/dl RDW Std Deviation (35.1-43.9) fL Plt Count (163-337) K/mm3 MPV (9.4-12.3) fl Neut % (Auto) (34.0-67.9) % Lymph % (Auto) (21.8-53.1) % [place] % (Auto) (5.3-12.2) % Eos % (Auto) (0.8-7.0) Baso % (Auto) (0.1-1.2) % Neut # (Auto) (1.78-5.38) K/mm3 Lymph # (Auto) (1.32-3.57) K/mm3 [place] # (Auto) (0.30-0.82) K/mm3 Eos # (Auto) (0.04-0.54) K/mm3 Baso # (Auto) (0.01-0.08) K/mm3 Manual Slide Review Sodium (136-145) mEq/L Potassium (3.5-5.1) mEq/L Chloride (98-107) mEq/L Carbon Dioxide (21-32) mEq/L Anion Gap (5-15) BUN (7-18) mg/dL Creatinine (0.7-1.3) mg/dL Est Cr Clr Drug Dosing mL/min Estimated GFR (MDRD) (>60) mL/min BUN/Creatinine Ratio (14-18) Glucose (83-115) mg/dL Lactic Acid 1.3 (0.4-2.0) mmol/L Calcium (8.5-10.1) mg/dL Total Bilirubin (0.2-1.0) mg/dL AST (15-37) U/L ALT (16-63) U/L Alkaline Phosphatase (46-116) U/L Troponin I (0.00-0.056) ng/mL NT-Pro-B Natriuret Pep (0-450) pg/mL Total Protein (6.4-8.2) g/dl Albumin (3.4-5.0) g/dl Globulin gm/dL Albumin/Globulin Ratio (1-2) Result Diagrams: 11/25/19 21:17 11/25/19 15:36 Sepsis Event Note - Evaluation Sepsis Screening Result: Sepsis Risk - Focused Exam Vital Signs: Vital Signs Temp Pulse Resp BP Pulse Ox Pulse Ox 11/25/19 15:22 92 L 11/25/19 14:45 97.4 F 107 H 34 H 110/56 L 75 L Date Exam was Performed: 11/25/19 Time Exam was Performed: 23:03 Problem List Initiated/Reviewed/Updated: Yes Orders Last 24hrs: Active Orders 24 hr Category Date Time Status Patient Status [ADT] Routine ADT 11/25/19 17:32 Active Oxygen Therapy [RC] PRN Care 11/25/19 15:20 Active RT Aerosol Therapy [RC] ASDIRECTED Care 11/25/19 15:22 Active CULTURE BLOOD [BC] Stat Lab 11/25/19 16:25 Received CULTURE BLOOD [BC] Stat Lab 11/25/19 16:35 Received HEMOGLOBIN/HEMATOCRIT,HH [HEME] Stat Lab 11/25/19 20:52 Ordered Apixaban [Eliquis] Med 11/25/19 21:00 Active 2.5 mg PO BID Budesonide [Pulmicort] Med 11/25/19 21:00 Active 0.5 mg NEB BIDRT Donepezil [Aricept] Med 11/26/19 09:00 Active 5 mg PO DAILY Ezetimibe [Zetia] Med 11/26/19 09:00 Active 10 mg PO DAILY Flecainide [Tambocor] Med 11/25/19 21:00 Active 100 mg PO BID Furosemide [Lasix] Med 11/26/19 09:00 Active 20 mg PO DAILY Lactated Ringers [Ringers, Lactated] 500 ml Med 11/25/19 20:58 Ordered IV .BOLUS Piperacillin/Tazobactam [Piperacil-Tazobact] 4.5 gm Med 11/26/19 00:00 Active Sodium Chloride 0.9% [Normal Saline] 100 ml IV Q8H Simvastatin [Zocor] Med 11/26/19 21:00 Active 20 mg PO BEDTIME Sodium Chloride 0.9% @ 100 MLS/HR(1000ml Bag) Med 11/25/19 21:00 Ordered Sodium Chloride 0.9% [Normal Saline] 1,000 ml IV ASDIRECTED Sodium Chloride 0.9% [Saline Flush] Med 11/25/19 15:20 Active 10 ml FLUSH ASDIRECTED PRN Tamsulosin [Flomax] Med 11/26/19 09:00 Active 0.4 mg PO DAILY allopurinoL [Zyloprim] Med 11/26/19 09:00 Active 100 mg PO DAILY guaiFENesin [Mucinex] Med 11/25/19 21:00 Active 600 mg PO BID traZODone Med 11/25/19 21:00 Active 25 mg PO BEDTIME Blood Culture x2 Reflex Set [OM.PC] Stat Ot 11/25/19 15:59 Ordered Peripheral IV Insertion Adult [OM.PC] Stat Oth 11/25/19 15:20 Ordered Resuscitation Status Routine Resus Stat 11/25/19 18:36 Ordered Medication Orders Allopurinol (Zyloprim) 100 mg PO DAILY [facility] Apixaban (Eliquis) 2.5 mg PO BID [facility] Last Admin: 11/25/19 20:10 Dose: 2.5 mg Budesonide (Pulmicort) 0.5 mg NEB BIDRT [facility] Donepezil HCl (Aricept) 5 mg PO DAILY [facility] Ezetimibe (Zetia) 10 mg PO DAILY [facility] Flecainide Acetate (Tambocor) 100 mg PO BID [facility] Last Admin: 11/25/19 20:10 Dose: 100 mg Furosemide (Lasix) 20 mg PO DAILY [facility] Guaifenesin (Mucinex) 600 mg PO BID [facility] Last Admin: 11/25/19 20:12 Dose: 600 mg Piperacillin Sod/Tazobactam (Sod 4.5 gm/ Sodium Chloride) 100 mls @ 25 mls/hr IV Q8H [facility] Sodium Chloride (Normal Saline) 1,000 mls @ 100 mls/hr IV ASDIRECTED [facility] Lactated Ringer's (Ringers, Lactated) 500 mls @ 500 mls/hr IV .BOLUS ONE Stop: 11/25/19 21:57 Simvastatin (Zocor) 20 mg PO BEDTIME [facility] Sodium Chloride (Saline Flush) 10 ml FLUSH ASDIRECTED PRN PRN Reason: Keep Vein Open Last Admin: 11/25/19 15:58 Dose: 10 ml Tamsulosin HCl (Flomax) 0.4 mg PO DAILY [facility] Trazodone HCl (Trazodone) 25 mg PO BEDTIME [facility] Last Admin: 11/25/19 20:11 Dose: 25 mg Assessment/Plan Comment:: Assessment * Aspiration pneumonia with hypoxemia * Zosyn and ceftriaxone given in the emergency room * Lactic acid negative * WBC 23 * On 5 L nasal cannula * Abdominal pain, nausea, vomiting, constipation * Seen in the emergency room last night * CT abdomen done showing dilated gallbladder with mild intrahepatic biliary duct dilatation but no dilatation of the common bile duct seen otherwise stable. * Emesis this morning and 3 small bowel movements * Currently no abdominal pain * Stage III chronic renal insufficiency with acute renal injury * Creatinine 2.1 * Atrial fibrillation * Rate slightly elevated in the low 100s * On Eliquis 2.5 mg twice daily for anticoagulation * COPD * Not on home O2 * On Incruse Ellipta Plan * Admit to medical floor on telemetry * Zosyn pharmacy to dose * FiO2 to keep SPO2 greater than 90% * DuoNeb every 6 hours * Albuterol neb every 2 hours as needed * Mucomyst neb 4 times daily * N.p.o. until morning * Normal saline at 100 mL an hour * CBC, CMP, mag in the morning * Reconcile home meds * VTE prophylaxis with Eliquis * CODE STATUS: DNR/DNI * Length of stay likely 3 to 4 days - Mortality Measure Prognosis:: Poor
[2019-11-25] MEDS: Ondansetron 4 MG/2 ML SDV ONE ×2 (22:02→22:05)
[2019-11-25] MEDS: Ondansetron 4 MG/2 ML SDV IVPUSH PRN (22:09)
[2019-11-25] MEDS: Sodium Chloride 0.9% 1,000 ML IV SCH (22:18)
[2019-11-25] MEDS: Budesonide 0.5 MG/2 ML Neb Susp NEB SCH (23:42)
[2019-11-25] MEDS: Albuterol 0.083% 2.5 MG/3 ML Neb Soln NEB PRN (23:42)
[2019-11-26] MEDS: Acetylcysteine 20% 200 MG/ML 4 ML Nebulizer Soln SDV NEB SCH ×5 (00:05→20:40)
[2019-11-26] MEDS: Piperacillin/Tazobactam 4.5 GM in Sodium Chloride 0.9% 100 ML IV SCH ×4 (00:08→23:38)
[2019-11-26] MEDS: Pantoprazole 80 MG in Sodium Chloride 0.9% 100 ML IV SCH ×2 (01:38→13:56)
[2019-11-26] MEDS: Budesonide 0.5 MG/2 ML Neb Susp NEB SCH ×2 (05:38→20:40)
[2019-11-26] MEDS ORDERED: Pantoprazole 40 MG Tab.CR PO SCH (07:00)
[2019-11-26] MEDS: Sodium Chloride 0.9% 1,000 ML IV SCH ×2 (08:49→13:56)
[2019-11-26] MEDS: Albuterol/Ipratropium 3.0-0.5 MG/3 ML Neb Soln NEB SCH ×3 (08:59→20:40)
[2019-11-26] MEDS ORDERED: Albuterol/Ipratropium 3.0-0.5 MG/3 ML Neb Soln NEB SCH (11:15)
[2019-11-26] MEDS: Flecainide 50 MG Tab PO SCH ×2 (11:29→21:12)
[2019-11-26] MEDS ORDERED: Sodium Chloride 0.9% 500 ML IV ONE (11:35)
[2019-11-26] MEDS ORDERED: Metoprolol Tartrate 5 MG/5 ML SDV IVPUSH ONE ×2 (12:49→21:41)
[2019-11-26] MEDS: Allopurinol 100 MG Tab PO SCH (13:35)
[2019-11-26] MEDS: Ezetimibe 10 MG Tab PO SCH (13:35)
[2019-11-26] MEDS: Tamsulosin 0.4 MG Cap.ER PO SCH (13:35)
[2019-11-26] MEDS: guaiFENesin 600 MG Tab.ER PO SCH ×2 (13:35→21:12)
[2019-11-26] MEDS: Donepezil 10 MG Tab PO SCH (13:36)
--- NOTE | 2019-11-26 13:37 | PCM.PN ---
- General Info Date of Service: 11/26/19 Admission Dx/Problem (Free Text): Admission Diagnosis/Problem Admission Diagnosis/Problem Aspiration pneumonia Subjective Update: Patient had an episode of coffee-ground emesis last night. It appears he aspirated. Patient did well overnight still with just 5 L nasal cannula. He is n.p.o. and on a Protonix drip. - Review of Systems General: Reports: No Symptoms HEENT: Reports: No Symptoms Pulmonary: Reports: No Symptoms Cardiovascular: Reports: No Symptoms Musculoskeletal: Reports: No Symptoms - Patient Data Vitals - Most Recent: Last Vital Signs Temp 98.4 F 11/26/19 07:51 Pulse 140 H 11/26/19 11:32 Resp 32 H 11/26/19 11:32 BP 128/75 11/26/19 11:32 Pulse Ox 91 L 11/26/19 11:32 Weight - Most Recent: 200 lb 12.8 oz I&O - Last 24 Hours: Intake & Output 11/25/19 11/26/19 11/26/19 22:59 06:59 14:59 Intake Total 1446 Output Total 250 Balance 1196 Lab Results Last 24 Hours: Laboratory Results - last 24 hr 11/25/19 11/25/19 11/25/19 Range/Units 15:36 15:36 15:36 WBC 23.12 H (4.23-9.07) K/mm3 RBC 4.98 (4.63-6.08) M/mm3 Hgb 13.8 (13.7-17.5) gm/dl Hct 42.3 (40.1-51.0) % MCV 84.9 (79.0-92.2) fl MCH 27.7 (25.7-32.2) pg MCHC 32.6 (32.2-35.5) g/dl RDW Std Deviation 49.8 H (35.1-43.9) fL Plt Count 280 (163-337) K/mm3 MPV 8.7 L (9.4-12.3) fl Neut % (Auto) 93.1 H (34.0-67.9) % Lymph % (Auto) 1.6 L (21.8-53.1) % [place] % (Auto) 5.2 L (5.3-12.2) % Eos % (Auto) 0 L (0.8-7.0) Baso % (Auto) 0.1 (0.1-1.2) % Neut # (Auto) 21.52 H (1.78-5.38) K/mm3 Lymph # (Auto) 0.37 L (1.32-3.57) K/mm3 [place] # (Auto) 1.21 H (0.30-0.82) K/mm3 Eos # (Auto) 0.00 L (0.04-0.54) K/mm3 Baso # (Auto) 0.02 (0.01-0.08) K/mm3 Manual Slide Review Abnormal smear Sodium 139 (136-145) mEq/L Potassium 4.2 (3.5-5.1) mEq/L Chloride 103 (98-107) mEq/L Carbon Dioxide 26 (21-32) mEq/L Anion Gap 14.2 (5-15) BUN 34 H (7-18) mg/dL Creatinine 2.1 H (0.7-1.3) mg/dL Est Cr Clr Drug Dosing 29.77 mL/min Estimated GFR (MDRD) 30 (>60) mL/min BUN/Creatinine Ratio 16.2 (14-18) Glucose 115 (83-115) mg/dL Lactic Acid (0.4-2.0) mmol/L Calcium 9.2 (8.5-10.1) mg/dL Magnesium (1.8-2.4) mg/dl Total Bilirubin 0.5 (0.2-1.0) mg/dL AST 21 (15-37) U/L ALT 20 (16-63) U/L Alkaline Phosphatase 124 H (46-116) U/L Troponin I < 0.017 (0.00-0.056) ng/mL NT-Pro-B Natriuret Pep 2572 H (0-450) pg/mL Total Protein 7.7 (6.4-8.2) g/dl Albumin 3.5 (3.4-5.0) g/dl Globulin 4.2 gm/dL Albumin/Globulin Ratio 0.8 L (1-2) 11/25/19 11/25/19 11/26/19 Range/Units 16:35 21:17 05:40 WBC 14.95 H (4.23-9.07) K/mm3 RBC 4.93 (4.63-6.08) M/mm3 Hgb 14.3 13.4 L (13.7-17.5) gm/dl Hct 45.1 42.5 (40.1-51.0) % MCV 86.2 (79.0-92.2) fl MCH 27.2 (25.7-32.2) pg MCHC 31.5 L (32.2-35.5) g/dl RDW Std Deviation 52.1 H (35.1-43.9) fL Plt Count 263 (163-337) K/mm3 MPV 8.5 L (9.4-12.3) fl Neut % (Auto) 89.4 H (34.0-67.9) % Lymph % (Auto) 6.2 L (21.8-53.1) % [place] % (Auto) 4.1 L (5.3-12.2) % Eos % (Auto) 0 L (0.8-7.0) Baso % (Auto) 0.1 (0.1-1.2) % Neut # (Auto) 13.38 H (1.78-5.38) K/mm3 Lymph # (Auto) 0.92 L (1.32-3.57) K/mm3 [place] # (Auto) 0.61 (0.30-0.82) K/mm3 Eos # (Auto) 0.00 L (0.04-0.54) K/mm3 Baso # (Auto) 0.01 (0.01-0.08) K/mm3 Manual Slide Review Abnormal smear Sodium (136-145) mEq/L Potassium (3.5-5.1) mEq/L Chloride (98-107) mEq/L Carbon Dioxide (21-32) mEq/L Anion Gap (5-15) BUN (7-18) mg/dL Creatinine (0.7-1.3) mg/dL Est Cr Clr Drug Dosing mL/min Estimated GFR (MDRD) (>60) mL/min BUN/Creatinine Ratio (14-18) Glucose (83-115) mg/dL Lactic Acid 1.3 (0.4-2.0) mmol/L Calcium (8.5-10.1) mg/dL Magnesium (1.8-2.4) mg/dl Total Bilirubin (0.2-1.0) mg/dL AST (15-37) U/L ALT (16-63) U/L Alkaline Phosphatase (46-116) U/L Troponin I (0.00-0.056) ng/mL NT-Pro-B Natriuret Pep (0-450) pg/mL Total Protein (6.4-8.2) g/dl Albumin (3.4-5.0) g/dl Globulin gm/dL Albumin/Globulin Ratio (1-2) 11/26/19 11/26/19 Range/Units 05:40 11:00 WBC (4.23-9.07) K/mm3 RBC (4.63-6.08) M/mm3 Hgb 13.1 L (13.7-17.5) gm/dl Hct 42.6 (40.1-51.0) % MCV (79.0-92.2) fl MCH (25.7-32.2) pg MCHC (32.2-35.5) g/dl RDW Std Deviation (35.1-43.9) fL Plt Count (163-337) K/mm3 MPV (9.4-12.3) fl Neut % (Auto) (34.0-67.9) % Lymph % (Auto) (21.8-53.1) % [place] % (Auto) (5.3-12.2) % Eos % (Auto) (0.8-7.0) Baso % (Auto) (0.1-1.2) % Neut # (Auto) (1.78-5.38) K/mm3 Lymph # (Auto) (1.32-3.57) K/mm3 [place] # (Auto) (0.30-0.82) K/mm3 Eos # (Auto) (0.04-0.54) K/mm3 Baso # (Auto) (0.01-0.08) K/mm3 Manual Slide Review Sodium 142 (136-145) mEq/L Potassium 4.4 (3.5-5.1) mEq/L Chloride 105 (98-107) mEq/L Carbon Dioxide 25 (21-32) mEq/L Anion Gap 16.4 H (5-15) BUN 38 H (7-18) mg/dL Creatinine 2.3 H (0.7-1.3) mg/dL Est Cr Clr Drug Dosing 27.18 mL/min Estimated GFR (MDRD) 27 (>60) mL/min BUN/Creatinine Ratio 16.5 (14-18) Glucose 84 (83-115) mg/dL Lactic Acid (0.4-2.0) mmol/L Calcium 8.9 (8.5-10.1) mg/dL Magnesium 1.9 (1.8-2.4) mg/dl Total Bilirubin 0.5 (0.2-1.0) mg/dL AST 81 H (15-37) U/L ALT 23 (16-63) U/L Alkaline Phosphatase 91 (46-116) U/L Troponin I (0.00-0.056) ng/mL NT-Pro-B Natriuret Pep (0-450) pg/mL Total Protein 7.1 (6.4-8.2) g/dl Albumin 2.9 L (3.4-5.0) g/dl Globulin 4.2 gm/dL Albumin/Globulin Ratio 0.7 L (1-2) Med Orders - Current: Current Medications Acetylcysteine (Mucomyst 20%) 800 mg NEB QIDRT [facility] Last Admin: 11/26/19 08:59 Dose: 800 mg Albuterol (Proventil Neb Soln) 2.5 mg NEB Q2H PRN PRN Reason: Dyspnea Last Admin: 11/25/19 23:42 Dose: 2.5 mg Albuterol/Ipratropium (Duoneb 3.0-0.5 Mg/3 Ml) 3 ml NEB Q6HRRT [facility] Last Admin: 11/26/19 08:59 Dose: 3 ml Allopurinol (Zyloprim) 100 mg PO DAILY [facility] Budesonide (Pulmicort) 0.5 mg NEB BIDRT [facility] Last Admin: 11/26/19 05:38 Dose: 0.5 mg Donepezil HCl (Aricept) 5 mg PO DAILY [facility] Ezetimibe (Zetia) 10 mg PO DAILY [facility] Flecainide Acetate (Tambocor) 100 mg PO BID [facility] Last Admin: 11/26/19 11:29 Dose: 100 mg Furosemide (Lasix) 20 mg PO DAILY [facility] Guaifenesin (Mucinex) 600 mg PO BID [facility] Last Admin: 11/25/19 20:12 Dose: 600 mg Piperacillin Sod/Tazobactam (Sod 4.5 gm/ Sodium Chloride) 100 mls @ 25 mls/hr IV Q8H [facility] Last Admin: 11/26/19 08:54 Dose: 25 mls/hr Sodium Chloride (Normal Saline) 1,000 mls @ 100 mls/hr IV ASDIRECTED [facility] Last Admin: 11/26/19 08:49 Dose: 100 mls/hr Pantoprazole Sodium 80 mg/ (Sodium Chloride) 100 mls @ 8 mls/hr IV Q10H [facility] Last Admin: 11/26/19 01:38 Dose: 8 mls/hr Doxycycline Hyclate 100 mg/ (Sodium Chloride) 100 mls @ 100 mls/hr IV Q12HR [facility] Ondansetron HCl (Zofran) 4 mg IVPUSH Q4H PRN PRN Reason: Nausea/Vomiting Last Admin: 11/25/19 22:09 Dose: 4 mg Simvastatin (Zocor) 20 mg PO BEDTIME [facility] Sodium Chloride (Saline Flush) 10 ml FLUSH ASDIRECTED PRN PRN Reason: Keep Vein Open Last Admin: 11/25/19 15:58 Dose: 10 ml Tamsulosin HCl (Flomax) 0.4 mg PO DAILY [facility] Trazodone HCl (Trazodone) 25 mg PO BEDTIME [facility] Last Admin: 11/25/19 20:11 Dose: 25 mg Discontinued Medications Albuterol/Ipratropium (Duoneb 3.0-0.5 Mg/3 Ml) 3 ml NEB ONETIME ONE Stop: 11/25/19 15:22 Last Admin: 11/25/19 15:43 Dose: 3 ml Albuterol/Ipratropium (Duoneb 3.0-0.5 Mg/3 Ml) 3 ml NEB Q6HRRT [facility] Apixaban (Eliquis) 2.5 mg PO BID [facility] Last Admin: 11/25/19 20:10 Dose: 2.5 mg Piperacillin Sod/Tazobactam (Sod 4.5 gm/ Sodium Chloride) 100 mls @ 200 mls/hr IV ONETIME ONE Stop: 11/25/19 16:28 Last Admin: 11/25/19 16:08 Dose: Not Given Piperacillin Sod/Tazobactam (Sod 4.5 gm/ Sodium Chloride) 100 mls @ 200 mls/hr IV ONETIME ONE Stop: 11/25/19 16:35 Last Admin: 11/25/19 16:34 Dose: 200 mls/hr Ceftriaxone Sodium 2 gm/ (Sodium Chloride) 100 mls @ 200 mls/hr IV ONETIME ONE Stop: 11/25/19 16:38 Last Admin: 11/25/19 17:06 Dose: 200 mls/hr Lactated Ringer's (Ringers, Lactated) 500 mls @ 500 mls/hr IV .BOLUS ONE Stop: 11/25/19 21:57 Last Admin: 11/25/19 21:35 Dose: 999 mls/hr Sodium Chloride (Normal Saline) 500 mls @ 999 mls/hr IV .BOLUS ONE Stop: 11/26/19 12:05 Last Admin: 11/26/19 11:47 Dose: Not Given Metoprolol Tartrate (Lopressor) 5 mg IVPUSH ONETIME ONE Stop: 11/26/19 12:50 Ondansetron HCl (Zofran) Confirm Administered Dose 4 mg .ROUTE .STK-MED ONE Stop: 11/25/19 21:57 Last Admin: 11/25/19 22:05 Dose: Not Given Pantoprazole Sodium (Protonix) 40 mg PO DAILY@0700 ANIKA Pantoprazole Sodium (Protonix Iv) 80 mg IVPUSH BOLUS ONE Stop: 11/25/19 20:52 Last Admin: 11/25/19 21:21 Dose: 80 mg - Exam Quality Assessment: Supplemental Oxygen General: Alert HEENT: Pupils Equal Neck: Supple Lungs: Clear to Auscultation, Normal Respiratory Effort Cardiovascular: Regular Rate, Regular Rhythm GI/Abdominal Exam: Normal Bowel Sounds, Soft, Non-Tender, No Organomegaly, No Distention Extremities: Normal Inspection, Pedal Edema (1+) Skin: Warm, Dry, Intact Neurological: No New Focal Deficit Psy/Mental Status: Alert, Normal Affect, Normal Mood Sepsis Event Note - Evaluation Sepsis Screening Result: Sepsis Risk - Focused Exam Vital Signs: Vital Signs Temp Pulse Pulse Resp BP BP Pulse Ox 11/26/19 11:32 140 H 32 H 128/75 91 L 11/26/19 11:20 155 H 96/61 87 L 11/26/19 08:59 11/26/19 07:51 98.4 F 101 H 32 H 126/61 91 L 11/26/19 05:43 11/26/19 04:05 100.0 F 100 40 H 125/64 90 L 11/26/19 01:42 99.7 F 102 H 44 H 108/56 L 89 L Pulse Ox 11/26/19 11:32 11/26/19 11:20 11/26/19 08:59 90 L 11/26/19 07:51 11/26/19 05:43 92 L 11/26/19 04:05 11/26/19 01:42 Date Exam was Performed: 11/26/19 Time Exam was Performed: 13:30 - Problem List Review Problem List Initiated/Reviewed/Updated: Yes - My Orders Last 24 Hours: My Active Orders 11/25/19 18:36 Resuscitation Status Routine 11/25/19 21:00 Budesonide [Pulmicort] 0.5 mg NEB BIDRT Flecainide [Tambocor] 100 mg PO BID Sodium Chloride 0.9% [Normal Saline] 1,000 ml IV ASDIRECTED guaiFENesin [Mucinex] 600 mg PO BID traZODone 25 mg PO BEDTIME 11/25/19 21:50 Gastric Occult/pH Collection D [RC] STAT 11/25/19 21:59 Ondansetron [Zofran] 4 mg IVPUSH Q4H PRN 11/25/19 23:09 Albuterol [Proventil Neb Soln] 2.5 mg NEB Q2H PRN 11/25/19 23:30 Acetylcysteine [Mucomyst 20%] 800 mg NEB QIDRT Pantoprazole [ProTONIX IV] 80 mg Sodium Chloride 0.9% [Normal Saline] 100 ml IV Q10H 11/26/19 00:00 Piperacillin/Tazobactam [Piperacil-Tazobact] 4.5 gm Sodium Chloride 0.9% [ Normal Saline] 100 ml IV Q8H 11/26/19 09:00 Albuterol/Ipratropium [DuoNeb 3.0-0.5 MG/3 ML] 3 ml NEB Q6HRRT Donepezil [Aricept] 5 mg PO DAILY Ezetimibe [Zetia] 10 mg PO DAILY Furosemide [Lasix] 20 mg PO DAILY Tamsulosin [Flomax] 0.4 mg PO DAILY allopurinoL [Zyloprim] 100 mg PO DAILY 11/26/19 10:34 PT Evaluation and Treatment [CONS] Routine 11/26/19 10:36 OT Evaluation and Treatment [CONS] Routine 11/26/19 10:37 SCD [Sequential Compression Device] [OM.PC] Routine 11/26/19 10:38 Antiembolic Devices [RC] PER UNIT ROUTINE 11/26/19 10:50 CULTURE SPUTUM + SMEAR [RM] Routine 11/26/19 21:00 Doxycycline [Vibramycin] 100 mg Sodium Chloride 0.9% [Normal Saline] 100 ml IV Q12HR Simvastatin [Zocor] 20 mg PO BEDTIME 11/26/19 Lunch NPO Now [Nothing per Oral Now Diet] [DIET] - Plan Plan:: Assessment * Aspiration pneumonia with hypoxemia * Zosyn and ceftriaxone given in the emergency room * Review of sputum result from July 27, 2019 was positive for MRSA sensitive to tetracycline, Bactrim, vancomycin, and gentamicin * Lactic acid negative * WBC 23 * On 5 L nasal cannula * Abdominal pain, nausea, vomiting, constipation * Seen in the emergency room last night * CT abdomen done showing dilated gallbladder with mild intrahepatic biliary duct dilatation but no dilatation of the common bile duct seen otherwise stable. * Emesis this morning and 3 small bowel movements * Currently no abdominal pain * Stage III chronic renal insufficiency with acute renal injury * Creatinine 2.1 * Atrial fibrillation * Rate slightly elevated in the low 100s * Quit stopped * Flecainide 100 mg twice daily * Upper GI bleed * Protonix 80 mg IV bolus given last night and started on a Protonix drip * Hemoglobin stable * COPD * Not on home O2 * On Incruse Ellipta Plan * Admit to medical floor on telemetry * [facility] pharmacy to dose * Add doxycycline IV 100 mg every 12 hours * Restart flecainide 100 mg twice daily * FiO2 to keep SPO2 greater than 90% * DuoNeb every 6 hours * Albuterol neb every 2 hours as needed * Mucomyst neb 4 times daily * Start clear liquids and advance diet as tolerated and if hemoglobin continues to be stable * If takes adequate p.o. will decrease IV fluids * Restart home meds now advancing diet * VTE prophylaxis: SCDs. Eliquis contraindicated because of upper GI bleed * CODE STATUS: DNR/DNI * Length of stay likely 3 to 4 days
[2019-11-26] MEDS: Doxycycline 100 MG in Sodium Chloride 0.9% 100 ML IV SCH (13:56)
[2019-11-26] MEDS ORDERED: Furosemide 40 MG/4 ML VIAL IVPUSH ONE (17:00)
[2019-11-26] MEDS ORDERED: Sodium Chloride 0.9% 1,000 ML IV SCH (17:15)
[2019-11-26] MEDS: Furosemide 20 MG Tab PO SCH (20:23)
[2019-11-26] MEDS: traZODone 50 MG Tab PO SCH (21:13)
[2019-11-26] MEDS: Simvastatin 20 MG Tab PO SCH (21:13)
[2019-11-27] MEDS: Doxycycline 100 MG in Sodium Chloride 0.9% 100 ML IV SCH ×2 (02:14→14:29)
[2019-11-27] MEDS: Albuterol/Ipratropium 3.0-0.5 MG/3 ML Neb Soln NEB SCH ×2 (02:33→09:57)
[2019-11-27] MEDS ORDERED: Pantoprazole 80 MG in Sodium Chloride 0.9% 100 ML IV SCH (03:00)
[2019-11-27] MEDS: Acetylcysteine 20% 200 MG/ML 4 ML Nebulizer Soln SDV NEB SCH ×4 (05:46→21:13)
[2019-11-27] MEDS: Budesonide 0.5 MG/2 ML Neb Susp NEB SCH ×2 (05:46→21:13)
[2019-11-27] MEDS: Pantoprazole 80 MG in Sodium Chloride 0.9% 100 ML IV SCH (06:18)
[2019-11-27] MEDS: Donepezil 10 MG Tab PO SCH (08:42)
[2019-11-27] MEDS: Ezetimibe 10 MG Tab PO SCH (08:43)
[2019-11-27] MEDS: Tamsulosin 0.4 MG Cap.ER PO SCH (08:43)
[2019-11-27] MEDS: Piperacillin/Tazobactam 4.5 GM in Sodium Chloride 0.9% 100 ML IV SCH ×2 (08:43→16:07)
[2019-11-27] MEDS: Furosemide 20 MG Tab PO SCH (08:43)
[2019-11-27] MEDS: Flecainide 50 MG Tab PO SCH ×2 (08:43→21:16)
[2019-11-27] MEDS: Allopurinol 100 MG Tab PO SCH (08:43)
[2019-11-27] MEDS: guaiFENesin 600 MG Tab.ER PO SCH ×2 (08:43→21:17)
[2019-11-27] MEDS ORDERED: Lactated Ringers 1,000 ML ONE (11:12)
[2019-11-27] MEDS ORDERED: Lactated Ringers 1,000 ML IV SCH (11:15)
[2019-11-27] MEDS ORDERED: Labetalol 100 MG/20 ML MDV IVPUSH ONE (11:35)
[2019-11-27] MEDS ORDERED: Diltiazem 50 MG/10 ML SDV IVPUSH ONE ×2 (14:52→18:34)
[2019-11-27] MEDS: Diltiazem 120 MG Cap.CD PO SCH (19:39)
[2019-11-27] MEDS: traZODone 50 MG Tab PO SCH (21:17)
[2019-11-27] MEDS: Simvastatin 20 MG Tab PO SCH (21:17)
[2019-11-27] MEDS: Pantoprazole 40 MG Vial IVPUSH SCH (21:23)
--- NOTE | 2019-11-27 22:18 | PCM.PN ---
- General Info Date of Service: 11/27/19 Subjective Update: Feeling OK Tolerating diet Slept OK - Patient Data Vitals - Most Recent: Last Vital Signs Temp 99.0 F 11/27/19 15:33 Pulse 82 11/27/19 19:39 Resp 28 H 11/27/19 15:33 BP 126/46 L 11/27/19 19:39 Pulse Ox 99 11/27/19 21:36 Weight - Most Recent: 91.943 kg - Exam General: Alert, Oriented, Cooperative, No Acute Distress HEENT: Pupils Equal, Pupils Reactive, EOMI, Mucous Membr. Moist/[place] Neck: Supple, Trachea Midline, No JVD, No Thyromegaly, Carotid Bruit. No: Lymphadenopathy Lungs: Decreased Breath Sounds, Crackles. No: Rales, Rhonchi, Rub, Wheezing Cardiovascular: Tachycardia. No: Regular Rhythm, Murmurs, Gallops, Rubs GI/Abdominal Exam: Normal Bowel Sounds, Soft, Non-Tender. No: Distended, Guarding, Rigid, Rebound Back Exam: Normal Inspection, Decreased Range of Motion. No: CVA Tenderness (L) , CVA Tenderness (R) Extremities: Normal Inspection, Non-Tender, Pedal Edema, Slow Capillary Refill Sepsis Event Note - Evaluation Sepsis Screening Result: Severe Sepsis Risk - Focused Exam Vital Signs: Vital Signs Temp Pulse Resp BP Pulse Ox Pulse Ox 11/27/19 21:36 99 11/27/19 19:39 82 126/46 L 11/27/19 15:33 99.0 F 117 H 28 H 107/62 97 11/27/19 15:03 97 11/27/19 14:25 98.6 F 45 L 17 109/57 L 100 11/27/19 11:30 75 32 H 115/65 86 L Date Exam was Performed: 12/02/19 Time Exam was Performed: 11:48 - Problem List & Annotations (1) Aspiration pneumonia SNOMED Code(s): 497958577 Code(s): J69.0 - PNEUMONITIS DUE TO INHALATION OF FOOD AND VOMIT Status: Acute Current Visit: Yes (2) Chronic kidney disease (CKD), stage III (moderate) SNOMED Code(s): 051902479 Code(s): N18.3 - CHRONIC KIDNEY DISEASE, STAGE 3 (MODERATE) Status: Acute Current Visit: Yes (3) Acute kidney injury SNOMED Code(s): 96842198, 64701776 Code(s): N17.9 - ACUTE KIDNEY FAILURE, UNSPECIFIED Status: Acute Current Visit: Yes (4) Hypertension SNOMED Code(s): 60936409 Code(s): I10 - ESSENTIAL (PRIMARY) HYPERTENSION Status: Acute Current Visit: Yes (5) Atrial fibrillation and flutter SNOMED Code(s): 458171379 Code(s): I48.91 - UNSPECIFIED ATRIAL FIBRILLATION; I48.92 - UNSPECIFIED ATRIAL FLUTTER Status: Acute Current Visit: No (6) Chronic hypoxemic respiratory failure SNOMED Code(s): 366824065 Code(s): J96.11 - CHRONIC RESPIRATORY FAILURE WITH HYPOXIA Status: Acute Current Visit: No (7) Pulmonary fibrosis, unspecified SNOMED Code(s): 07553967 Code(s): J84.10 - PULMONARY FIBROSIS, UNSPECIFIED Status: Acute Current Visit: No (8) Dysphagia SNOMED Code(s): 86217788, 735226844 Code(s): R13.10 - DYSPHAGIA, UNSPECIFIED Status: Acute Current Visit: Yes (9) Upper gastrointestinal bleed SNOMED Code(s): 96466540 Code(s): K92.2 - GASTROINTESTINAL HEMORRHAGE, UNSPECIFIED Status: Acute Current Visit: Yes (10) Dehydration, moderate SNOMED Code(s): 2293734585815 Code(s): E86.0 - DEHYDRATION Status: Resolved Priority: High Current Visit: No (11) Vomiting SNOMED Code(s): 109552997 Code(s): R11.10 - VOMITING, UNSPECIFIED Status: Resolved Priority: High Current Visit: No Qualifiers: Vomiting type: bilious vomiting Nausea presence: unspecified Qualified Code(s): R11.14 - Bilious vomiting - Problem List Review Problem List Initiated/Reviewed/Updated: Yes - Plan Plan:: Aspiration pneumonia Acute on chronic hypoxemic respiratory failure Unspecified pulmonary fibrosis Dysphagia Worsening shortness of breath --> CXR on admission with BL infiltrates Sputum 07/2019 + MRSA ER given Zosyn and Rocephin Elevated WBC count 23 in ER--> 12.13 today Speech therapy recommended nectar thickened liquids PLAN - Continue Zosyn and Doxycycline - F/U sputum cultures - Procalcitonin today - Continue scheduled DuoNebs, pulmicort, mucomyst and mucinex - Incentive spirometry Upper GI bleed Hb stable 11.2 PLAN - Continue Protonix, change to bolus dosing Volume depletion Chronic kidney disease (CKD), stage III (moderate) Acute kidney injury Volume depleted on admission 2/2 GI losses (vomiting) Baseline GFR 30-40s PLAN - Monitory urine output - Renally dosed medications Hypertension BP trend 101-126/49-74 PLAN - Continue home medications - PRN hydralazine Atrial fibrillation and flutter Currently rate controlled PLAN - Monitor VS - Continue home Flecainide PROPHYLAXIS DVT- SCD's due to bleed GI- Protonix CODE STATUS: DNR/DNI DISPOSITION: Patient will remain admitted for IV antibiotics and monitorization. Comes from home with . PT recommending SNF with PT/OT
[2019-11-28] MEDS: Piperacillin/Tazobactam 4.5 GM in Sodium Chloride 0.9% 100 ML IV SCH ×3 (01:11→18:03)
[2019-11-28] MEDS: Doxycycline 100 MG in Sodium Chloride 0.9% 100 ML IV SCH ×2 (02:15→14:22)
[2019-11-28] MEDS: Budesonide 0.5 MG/2 ML Neb Susp NEB SCH ×3 (05:43→20:13)
[2019-11-28] MEDS: Acetylcysteine 20% 200 MG/ML 4 ML Nebulizer Soln SDV NEB SCH ×5 (05:43→20:12)
[2019-11-28] MEDS: Flecainide 50 MG Tab PO SCH ×2 (08:06→20:56)
[2019-11-28] MEDS: Diltiazem 120 MG Cap.CD PO SCH (08:06)
[2019-11-28] MEDS: Allopurinol 100 MG Tab PO SCH (08:09)
[2019-11-28] MEDS: Furosemide 20 MG Tab PO SCH (08:09)
[2019-11-28] MEDS: Tamsulosin 0.4 MG Cap.ER PO SCH (08:09)
[2019-11-28] MEDS: Donepezil 10 MG Tab PO SCH (08:09)
[2019-11-28] MEDS: Ezetimibe 10 MG Tab PO SCH (08:10)
[2019-11-28] MEDS: Pantoprazole 40 MG Vial IVPUSH SCH ×2 (08:10→21:02)
[2019-11-28] MEDS: guaiFENesin 600 MG Tab.ER PO SCH ×2 (08:10→20:56)
[2019-11-28] MEDS: Simvastatin 20 MG Tab PO SCH (20:57)
[2019-11-28] MEDS: traZODone 50 MG Tab PO SCH (20:58)
--- NOTE | 2019-11-28 21:42 | PCM.PN ---
- General Info Date of Service: 11/28/19 Subjective Update: Transferred to ICU for RVR yesterday evening Slept OK Tolerating diet - Patient Data Vitals - Most Recent: Last Vital Signs Temp 98.3 F 11/28/19 20:00 Pulse 96 11/28/19 08:06 Resp 18 11/28/19 20:00 BP 109/69 11/28/19 20:00 Pulse Ox 95 11/28/19 20:00 Weight - Most Recent: 92.079 kg - Exam Physical Findings Comments:: General: Alert, Oriented, Cooperative, No Acute Distress HEENT: Pupils Equal, Pupils Reactive, EOMI, Mucous Membr. Moist/[place] Neck: Supple, Trachea Midline, No JVD, No Thyromegaly, Carotid Bruit. No: Lymphadenopathy Lungs: Decreased Breath Sounds, Crackles. No: Rales, Rhonchi, Rub, Wheezing Cardiovascular: Tachycardia. No: Regular Rhythm, Murmurs, Gallops, Rubs GI/Abdominal Exam: Normal Bowel Sounds, Soft, Non-Tender. No: Distended, Guarding, Rigid, Rebound Back Exam: Normal Inspection, Decreased Range of Motion. No: CVA Tenderness (L) , CVA Tenderness (R) Extremities: Normal Inspection, Non-Tender, Pedal Edema, Slow Capillary Refill Sepsis Event Note - Evaluation Sepsis Screening Result: Severe Sepsis Risk - Focused Exam Vital Signs: Vital Signs Temp Resp BP Pulse Ox Pulse Ox 11/28/19 20:00 98.3 F 18 109/69 95 11/28/19 19:58 96 11/28/19 16:00 98.0 F 19 127/69 94 L 11/28/19 12:00 98.1 F 19 129/74 93 L 11/28/19 09:58 95 Date Exam was Performed: 12/02/19 Time Exam was Performed: 11:59 - Problem List & Annotations (1) Acute kidney injury SNOMED Code(s): 05961194, 73980023 Code(s): N17.9 - ACUTE KIDNEY FAILURE, UNSPECIFIED Status: Acute Current Visit: Yes (2) Aspiration pneumonia SNOMED Code(s): 546132294 Code(s): J69.0 - PNEUMONITIS DUE TO INHALATION OF FOOD AND VOMIT Status: Acute Current Visit: Yes (3) Chronic kidney disease (CKD), stage III (moderate) SNOMED Code(s): 845414125 Code(s): N18.3 - CHRONIC KIDNEY DISEASE, STAGE 3 (MODERATE) Status: Acute Current Visit: Yes (4) Dysphagia SNOMED Code(s): 76580884, 079168826 Code(s): R13.10 - DYSPHAGIA, UNSPECIFIED Status: Acute Current Visit: Yes (5) Hypertension SNOMED Code(s): 16635552 Code(s): I10 - ESSENTIAL (PRIMARY) HYPERTENSION Status: Acute Current Visit: Yes (6) Hypoxia SNOMED Code(s): 048742734 Code(s): R09.02 - HYPOXEMIA Status: Acute Priority: High Current Visit : Yes (7) Upper gastrointestinal bleed SNOMED Code(s): 36270830 Code(s): K92.2 - GASTROINTESTINAL HEMORRHAGE, UNSPECIFIED Status: Acute Current Visit: Yes (8) Acute respiratory failure with hypoxia SNOMED Code(s): 11488850, 199435297 Code(s): J96.01 - ACUTE RESPIRATORY FAILURE WITH HYPOXIA Status: Acute Current Visit: No (9) Atrial fibrillation and flutter SNOMED Code(s): 976342250 Code(s): I48.91 - UNSPECIFIED ATRIAL FIBRILLATION; I48.92 - UNSPECIFIED ATRIAL FLUTTER Status: Acute Current Visit: No (10) Chronic hypoxemic respiratory failure SNOMED Code(s): 922859900 Code(s): J96.11 - CHRONIC RESPIRATORY FAILURE WITH HYPOXIA Status: Acute Current Visit: No (11) Dyslipidemia SNOMED Code(s): 181226777 Code(s): E78.5 - HYPERLIPIDEMIA, UNSPECIFIED Status: Acute Current Visit : No (12) Gouty arthritis of right great toe SNOMED Code(s): 1158141174816872 Code(s): M10.9 - GOUT, UNSPECIFIED Status: Acute Current Visit: No (13) Oropharyngeal dysphagia SNOMED Code(s): 20027481 Code(s): R13.12 - DYSPHAGIA, OROPHARYNGEAL PHASE Status: Acute Current Visit: No (14) Physical deconditioning SNOMED Code(s): 89900459824297 Code(s): R53.81 - OTHER MALAISE Status: Acute Current Visit: No (15) Pulmonary fibrosis, unspecified SNOMED Code(s): 94144865 Code(s): J84.10 - PULMONARY FIBROSIS, UNSPECIFIED Status: Acute Current Visit: No (16) Weakness SNOMED Code(s): 40497459 Code(s): R53.1 - WEAKNESS Status: Acute Priority: High Current Visit: No - Problem List Review Problem List Initiated/Reviewed/Updated: Yes - Plan Plan:: Aspiration pneumonia Acute on chronic hypoxemic respiratory failure Unspecified pulmonary fibrosis Dysphagia Worsening shortness of breath --> CXR on admission with BL infiltrates Sputum 07/2019 + MRSA ER given Zosyn and Rocephin-- Cotninued on doxy and Zosyn Elevated WBC count 23 in ER--> 11.51 Speech therapy recommended nectar thickened liquids Tmax 99 Procalcitonin elevated PLAN - Continue Zosyn day 4 and Doxycycline day 3 - F/U sputum cultures - Continue scheduled DuoNebs, pulmicort, mucomyst and mucinex - Incentive spirometry Atrial fibrillation and flutter with RVR HR trend 75-117 Transferred to ICU yesterday for Diltiazem drip --> rate controlled with bolus diltiazem and increased in home flecainide dose PLAN - Monitor VS - Increase Flecainide - Hold Cardizem Upper GI bleed Hb stable 11.1 PLAN - Continue Protonix, change to bolus dosing Volume depletion Chronic kidney disease (CKD), stage III (moderate) Acute kidney injury, improving Volume depleted on admission 2/2 GI losses (vomiting) Baseline GFR 30-40s, GFR today 31, up from 26 yesterday PLAN - Monitory urine output - Renally dosed medications Hypertension BP trend 107-126/46-65 PLAN - Continue home medications - PRN hydralazine PROPHYLAXIS DVT- SCD's due to bleed GI- Protonix CODE STATUS: DNR/DNI DISPOSITION: Patient will remain admitted for IV antibiotics and monitorization. Comes from home with . PT recommending SNF with PT/OT
[2019-11-29] MEDS: Piperacillin/Tazobactam 4.5 GM in Sodium Chloride 0.9% 100 ML IV SCH ×4 (00:05→23:12)
[2019-11-29] MEDS: Doxycycline 100 MG in Sodium Chloride 0.9% 100 ML IV SCH ×2 (02:23→14:56)
[2019-11-29] MEDS: Budesonide 0.5 MG/2 ML Neb Susp NEB SCH ×2 (05:49→20:16)
[2019-11-29] MEDS: Acetylcysteine 20% 200 MG/ML 4 ML Nebulizer Soln SDV NEB SCH (05:49)
[2019-11-29] MEDS: Pantoprazole 40 MG Vial IVPUSH SCH ×2 (08:33→21:09)
[2019-11-29] MEDS: guaiFENesin 600 MG Tab.ER PO SCH ×2 (08:34→21:09)
[2019-11-29] MEDS: Flecainide 50 MG Tab PO SCH ×2 (08:34→21:09)
[2019-11-29] MEDS: Ezetimibe 10 MG Tab PO SCH (08:34)
[2019-11-29] MEDS: Tamsulosin 0.4 MG Cap.ER PO SCH (08:34)
[2019-11-29] MEDS: Donepezil 10 MG Tab PO SCH (08:34)
[2019-11-29] MEDS: Allopurinol 100 MG Tab PO SCH (08:35)
[2019-11-29] MEDS: Furosemide 20 MG Tab PO SCH (08:35)
[2019-11-29] MEDS ORDERED: Vancomycin 2 GM in Sodium Chloride 0.9% 500 ML IV ONE (13:00)
--- NOTE | 2019-11-29 13:56 | CT ---
CT chest Technique: Multiple axial sections were obtained from above the lung apices inferiorly through the lung bases. Intravenous contrast was not utilized. Comparison: Prior chest CT of 07/28/90. Findings: Partially visualized dilated gallbladder is noted. Small right sided pleural effusion is seen. Small mediastinal lymph nodes are noted which are believed to be within normal limits. Atherosclerotic calcification is noted within the thoracic aorta and within the coronary arteries. Interstitial fibrosis is noted within the right lung base. Emphysematous changes are seen within both lungs. Lesser fibrosis is seen within the left base. I do not see a definite acute parenchymal process. Bone window settings were reviewed which show mild degenerative change throughout the spine. No acute osseous finding is appreciated. Impression: 1. Dilated gallbladder is partially seen. Please correlate if patient has any right upper quadrant symptoms to indicate further imaging by ultrasound. 2. Interstitial fibrosis within the right lung base as well as lesser fibrosis within the left lung base. 3. No definite acute abnormality is seen on chest CT. Diagnostic code #3 Study was dictated in [place] [employer]
[2019-11-29] MEDS: Linezolid 600 MG in Premix Bag 1 BAG IV SCH (14:51)
--- NOTE | 2019-11-29 20:44 | PCM.PN ---
- General Info Date of Service: 11/29/19 - Patient Data Vitals - Most Recent: Last Vital Signs Temp 98.7 F 11/29/19 16:00 Pulse 96 11/28/19 08:06 Resp 16 11/29/19 16:00 BP 124/69 11/29/19 16:00 Pulse Ox 93 L 11/29/19 20:17 Weight - Most Recent: 91.626 kg I&O - Last 24 Hours: Intake & Output 11/29/19 11/29/19 11/29/19 06:59 14:59 22:59 Intake Total 700 440 740 Output Total 823 675 350 Balance -125 -235 390 Lab Results Last 24 Hours: Laboratory Results - last 24 hr 11/29/19 11/29/19 Range/Units 07:56 08:22 WBC 11.51 H (4.23-9.07) K/mm3 RBC 4.14 L (4.63-6.08) M/mm3 Hgb 11.1 L (13.7-17.5) gm/dl Hct 36.8 L (40.1-51.0) % MCV 88.9 (79.0-92.2) fl MCH 26.8 (25.7-32.2) pg MCHC 30.2 L (32.2-35.5) g/dl RDW Std Deviation 53.5 H (35.1-43.9) fL Plt Count 241 (163-337) K/mm3 MPV 9.2 L (9.4-12.3) fl Neut % (Auto) 86.1 H (34.0-67.9) % Lymph % (Auto) 6.2 L (21.8-53.1) % [place] % (Auto) 6.8 (5.3-12.2) % Eos % (Auto) 0.3 L (0.8-7.0) Baso % (Auto) 0.1 (0.1-1.2) % Neut # (Auto) 9.92 H (1.78-5.38) K/mm3 Lymph # (Auto) 0.71 L (1.32-3.57) K/mm3 [place] # (Auto) 0.78 (0.30-0.82) K/mm3 Eos # (Auto) 0.03 L (0.04-0.54) K/mm3 Baso # (Auto) 0.01 (0.01-0.08) K/mm3 Manual Slide Review Abnormal smear Sodium 149 H (136-145) mEq/L Potassium 3.1 L (3.5-5.1) mEq/L Chloride 110 H (98-107) mEq/L Carbon Dioxide 29 (21-32) mEq/L Anion Gap 13.1 (5-15) BUN 36 H (7-18) mg/dL Creatinine 2.0 H (0.7-1.3) mg/dL Est Cr Clr Drug Dosing 31.30 mL/min Estimated GFR (MDRD) 32 (>60) mL/min BUN/Creatinine Ratio 18.0 (14-18) Glucose 121 H (83-115) mg/dL Calcium 8.9 (8.5-10.1) mg/dL Phosphorus 2.3 L (2.6-4.7) mg/dL Magnesium 1.9 (1.8-2.4) mg/dl Alfonso Results Last 24 Hours: Microbiology 11/26/19 10:50 Gram Stain - Final Sputum - Expectorated Sputum Culture - Final Klebsiella Pneumoniae Enterococcus Faecium Vre (Mrsa) Staphylococcus Aureus [place] Albicans 11/25/19 16:25 Aerobic Blood Culture - Preliminary Blood - Venous NO GROWTH AFTER 4 DAYS Anaerobic Blood Culture - Preliminary NO GROWTH AFTER 4 DAYS 11/25/19 16:35 Aerobic Blood Culture - Preliminary Blood - Venous - Lab Draw NO GROWTH AFTER 4 DAYS Anaerobic Blood Culture - Preliminary NO GROWTH AFTER 4 DAYS Med Orders - Current: Current Medications Albuterol (Proventil Neb Soln) 2.5 mg NEB Q2H PRN PRN Reason: Dyspnea Last Admin: 11/25/19 23:42 Dose: 2.5 mg Allopurinol (Zyloprim) 100 mg PO DAILY [facility] Last Admin: 11/29/19 08:35 Dose: 100 mg Budesonide (Pulmicort) 0.5 mg NEB BIDRT [facility] Last Admin: 11/29/19 20:16 Dose: 0.5 mg Donepezil HCl (Aricept) 5 mg PO DAILY [facility] Last Admin: 11/29/19 08:34 Dose: 5 mg Ezetimibe (Zetia) 10 mg PO DAILY [facility] Last Admin: 11/29/19 08:34 Dose: 10 mg Flecainide Acetate (Tambocor) 200 mg PO BID [facility] Last Admin: 11/29/19 08:34 Dose: 200 mg Furosemide (Lasix) 20 mg PO DAILY [facility] Last Admin: 11/29/19 08:35 Dose: 20 mg Guaifenesin (Mucinex) 600 mg PO BID [facility] Last Admin: 11/29/19 08:34 Dose: 600 mg Piperacillin Sod/Tazobactam (Sod 4.5 gm/ Sodium Chloride) 100 mls @ 25 mls/hr IV Q8H [facility] Last Admin: 11/29/19 16:57 Dose: 25 mls/hr Doxycycline Hyclate 100 mg/ (Sodium Chloride) 100 mls @ 100 mls/hr IV Q12H [facility] Last Admin: 11/29/19 14:56 Dose: 100 mls/hr Linezolid 600 mg/ Premix 300 mls @ 300 mls/hr IV Q12H [facility] Last Admin: 11/29/19 14:51 Dose: 300 mls/hr Ondansetron HCl (Zofran) 4 mg IVPUSH Q4H PRN PRN Reason: Nausea/Vomiting Last Admin: 11/25/19 22:09 Dose: 4 mg Pantoprazole Sodium (Protonix Iv) 40 mg IVPUSH BID [facility] Last Admin: 11/29/19 08:33 Dose: 40 mg Simvastatin (Zocor) 20 mg PO BEDTIME [facility] Last Admin: 11/28/19 20:57 Dose: 20 mg Sodium Chloride (Saline Flush) 10 ml FLUSH ASDIRECTED PRN PRN Reason: Keep Vein Open Last Admin: 11/25/19 15:58 Dose: 10 ml Tamsulosin HCl (Flomax) 0.4 mg PO DAILY [facility] Last Admin: 11/29/19 08:34 Dose: 0.4 mg Discontinued Medications Acetylcysteine (Mucomyst 20%) 800 mg NEB QIDRT [facility] Last Admin: 11/29/19 05:49 Dose: 800 mg Albuterol/Ipratropium (Duoneb 3.0-0.5 Mg/3 Ml) 3 ml NEB ONETIME ONE Stop: 11/25/19 15:22 Last Admin: 11/25/19 15:43 Dose: 3 ml Albuterol/Ipratropium (Duoneb 3.0-0.5 Mg/3 Ml) 3 ml NEB Q6HRRT [facility] Albuterol/Ipratropium (Duoneb 3.0-0.5 Mg/3 Ml) 3 ml NEB Q6HRRT [facility] Last Admin: 11/27/19 09:57 Dose: 3 ml Apixaban (Eliquis) 2.5 mg PO BID [facility] Last Admin: 11/25/19 20:10 Dose: 2.5 mg Diltiazem HCl (Cardizem) 20 mg IVPUSH ONETIME ONE Stop: 11/27/19 14:53 Last Admin: 11/27/19 15:06 Dose: 20 mg Diltiazem HCl (Cardizem) 30 mg IVPUSH ONETIME ONE Stop: 11/27/19 18:35 Last Admin: 11/27/19 18:46 Dose: 30 mg Diltiazem HCl (Cardizem Cd) 120 mg PO DAILY [facility] Last Admin: 11/28/19 08:06 Dose: 120 mg Flecainide Acetate (Tambocor) 100 mg PO BID [facility] Last Admin: 11/27/19 08:43 Dose: 100 mg Flecainide Acetate (Tambocor) 150 mg PO BID [facility] Last Admin: 11/28/19 20:56 Dose: 150 mg Furosemide (Lasix) 40 mg IVPUSH NOW ONE Stop: 11/26/19 17:01 Last Admin: 11/26/19 17:41 Dose: 40 mg Piperacillin Sod/Tazobactam (Sod 4.5 gm/ Sodium Chloride) 100 mls @ 200 mls/hr IV ONETIME ONE Stop: 11/25/19 16:28 Last Admin: 11/25/19 16:08 Dose: Not Given Piperacillin Sod/Tazobactam (Sod 4.5 gm/ Sodium Chloride) 100 mls @ 200 mls/hr IV ONETIME ONE Stop: 11/25/19 16:35 Last Admin: 11/25/19 16:34 Dose: 200 mls/hr Ceftriaxone Sodium 2 gm/ (Sodium Chloride) 100 mls @ 200 mls/hr IV ONETIME ONE Stop: 11/25/19 16:38 Last Admin: 11/25/19 17:06 Dose: 200 mls/hr Sodium Chloride (Normal Saline) 1,000 mls @ 100 mls/hr IV ASDIRECTED [facility] Last Admin: 11/26/19 13:56 Dose: 100 mls/hr Lactated Ringer's (Ringers, Lactated) 500 mls @ 500 mls/hr IV .BOLUS ONE Stop: 11/25/19 21:57 Last Admin: 11/25/19 21:35 Dose: 999 mls/hr Pantoprazole Sodium 80 mg/ (Sodium Chloride) 100 mls @ 8 mls/hr IV Q10H [facility] Last Admin: 11/27/19 06:18 Dose: Not Given Sodium Chloride (Normal Saline) 500 mls @ 999 mls/hr IV .BOLUS ONE Stop: 11/26/19 12:05 Last Admin: 11/26/19 11:47 Dose: Not Given Sodium Chloride (Normal Saline) 1,000 mls @ 50 mls/hr IV ASDIRECTED [facility] Last Admin: 11/27/19 05:03 Dose: 50 mls/hr Pantoprazole Sodium 80 mg/ (Sodium Chloride) 100 mls @ 8 mls/hr IV Q10H [facility] Last Admin: 11/27/19 02:52 Dose: 8 mls/hr Lactated Ringer's (Ringers, Lactated) 1,000 mls @ 75 mls/hr IV ASDIRECTED [facility] Last Admin: 11/27/19 11:21 Dose: 75 mls/hr Lactated Ringer's (Ringers, Lactated) Confirm Administered Dose 1,000 mls @ as directed .ROUTE .STK-MED ONE Stop: 11/27/19 11:13 Last Admin: 11/27/19 11:23 Dose: Not Given Vancomycin HCl 1 gm/Vancomycin HCl 500 mg/ Sodium Chloride 500 mls @ 250 mls/ hr IV Q24H [facility] Labetalol HCl (Normodyne) 5 mg IVPUSH ONETIME ONE; Protocol Stop: 11/27/19 11:36 Last Admin: 11/27/19 11:43 Dose: 5 mg Metoprolol Tartrate (Lopressor) 5 mg IVPUSH ONETIME ONE Stop: 11/26/19 12:50 Last Admin: 11/26/19 13:32 Dose: 5 mg Metoprolol Tartrate (Lopressor) 5 mg IVPUSH ONETIME ONE Stop: 11/26/19 21:42 Last Admin: 11/26/19 22:03 Dose: 5 mg Ondansetron HCl (Zofran) Confirm Administered Dose 4 mg .ROUTE .STK-MED ONE Stop: 11/25/19 21:57 Last Admin: 11/25/19 22:05 Dose: Not Given Pantoprazole Sodium (Protonix) 40 mg PO DAILY@0700 [facility] Pantoprazole Sodium (Protonix Iv) 80 mg IVPUSH BOLUS ONE Stop: 11/25/19 20:52 Last Admin: 11/25/19 21:21 Dose: 80 mg Trazodone HCl (Trazodone) 25 mg PO BEDTIME [facility] Last Admin: 11/28/19 20:58 Dose: 25 mg Sepsis Event Note - Evaluation Sepsis Screening Result: Severe Sepsis Risk - Focused Exam Vital Signs: Vital Signs Temp Resp BP Pulse Ox Pulse Ox 11/29/19 20:17 93 L 11/29/19 16:00 98.7 F 16 124/69 92 L 11/29/19 12:00 98.2 F 19 154/67 H 95 Date Exam was Performed: 12/02/19 Time Exam was Performed: 12:07 - Problem List & Annotations (1) Acute kidney injury SNOMED Code(s): 14838776, 36822227 Code(s): N17.9 - ACUTE KIDNEY FAILURE, UNSPECIFIED Status: Acute Current Visit: Yes (2) Aspiration pneumonia SNOMED Code(s): 333804947 Code(s): J69.0 - PNEUMONITIS DUE TO INHALATION OF FOOD AND VOMIT Status: Acute Current Visit: Yes (3) Chronic kidney disease (CKD), stage III (moderate) SNOMED Code(s): 239822522 Code(s): N18.3 - CHRONIC KIDNEY DISEASE, STAGE 3 (MODERATE) Status: Acute Current Visit: Yes (4) Dysphagia SNOMED Code(s): 55817890, 843983742 Code(s): R13.10 - DYSPHAGIA, UNSPECIFIED Status: Acute Current Visit: Yes (5) Hypertension SNOMED Code(s): 86606543 Code(s): I10 - ESSENTIAL (PRIMARY) HYPERTENSION Status: Acute Current Visit: Yes (6) Hypoxia SNOMED Code(s): 029486454 Code(s): R09.02 - HYPOXEMIA Status: Acute Priority: High Current Visit : Yes (7) Upper gastrointestinal bleed SNOMED Code(s): 46124034 Code(s): K92.2 - GASTROINTESTINAL HEMORRHAGE, UNSPECIFIED Status: Acute Current Visit: Yes (8) Acute renal failure SNOMED Code(s): 74317810 Code(s): N17.9 - ACUTE KIDNEY FAILURE, UNSPECIFIED Status: Acute Priority : High Current Visit: No Qualifiers: Acute renal failure type: unspecified Qualified Code(s): N17.9 - Acute kidney failure, unspecified (9) Acute respiratory failure with hypoxia SNOMED Code(s): 74100315, 299563795 Code(s): J96.01 - ACUTE RESPIRATORY FAILURE WITH HYPOXIA Status: Acute Current Visit: No (10) Atrial fibrillation and flutter SNOMED Code(s): 562978612 Code(s): I48.91 - UNSPECIFIED ATRIAL FIBRILLATION; I48.92 - UNSPECIFIED ATRIAL FLUTTER Status: Acute Current Visit: No (11) COPD exacerbation SNOMED Code(s): 715536928 Code(s): J44.1 - CHRONIC OBSTRUCTIVE PULMONARY DISEASE W (ACUTE) EXACERBATION Status: Acute Current Visit: No (12) Chronic atrial fibrillation with RVR SNOMED Code(s): 556707263, 766540811634131 Code(s): I48.2 - CHRONIC ATRIAL FIBRILLATION * DO NOT USE * Status: Acute Current Visit: No (13) Dyslipidemia SNOMED Code(s): 420955551 Code(s): E78.5 - HYPERLIPIDEMIA, UNSPECIFIED Status: Acute Current Visit : No (14) Oropharyngeal dysphagia SNOMED Code(s): 99371183 Code(s): R13.12 - DYSPHAGIA, OROPHARYNGEAL PHASE Status: Acute Current Visit: No (15) Pulmonary fibrosis, unspecified SNOMED Code(s): 93804587 Code(s): J84.10 - PULMONARY FIBROSIS, UNSPECIFIED Status: Acute Current Visit: No (16) Weakness SNOMED Code(s): 61980232 Code(s): R53.1 - WEAKNESS Status: Acute Priority: High Current Visit: No (17) Chronic renal insufficiency, stage III (moderate) SNOMED Code(s): 969063977 Code(s): N18.3 - CHRONIC KIDNEY DISEASE, STAGE 3 (MODERATE) Status: Chronic Priority: Medium Current Visit: No - Problem List Review Problem List Initiated/Reviewed/Updated: Yes - Plan Plan:: Aspiration pneumonia Acute on chronic hypoxemic respiratory failure Unspecified pulmonary fibrosis Dysphagia, oropharyngeal Worsening shortness of breath --> CXR on admission with BL infiltrates Sputum 07/2019 + MRSA ER given Zosyn and Rocephin-- Continued on doxy and Zosyn Elevated WBC count 23 in ER--> normal today Speech therapy recommended nectar thickened liquids Tmax 98.6 Procalcitonin elevated 11/28 Sputum growing klebsiella PLAN - Continue Zosyn day 5 and Doxycycline day 4 - Add vancomycin - Start CPT - F/U sputum cultures - Continue scheduled DuoNebs, pulmicort and mucinex - Incentive spirometry - D/C mucomyst - CT chest Atrial fibrillation and flutter with RVR HR trend 70-111 Transferred to ICU 11/27 for Diltiazem drip --> rate controlled with bolus diltiazem and increase in home flecainide dose PLAN - Monitor VS - Increase Flecainide Upper GI bleed Hb stable 10.8 PLAN - Continue Protonix, change to bolus dosing Volume depletion Chronic kidney disease (CKD), stage III (moderate) Acute kidney injury, resolved Volume depleted on admission 2/2 GI losses (vomiting) Baseline GFR 30-40s, GFR today 33 PLAN - Monitory urine output - Renally dosed medications Hypertension BP trend 130-139/59-67 PLAN - Continue home medications - PRN hydralazine PROPHYLAXIS DVT- SCD's due to bleed GI- Protonix CODE STATUS: DNR/DNI DISPOSITION: Patient will remain admitted for IV antibiotics and monitorization. Comes from home with . PT recommending SNF with PT/OT Patient requiring hospitalization greated than 96 days due to suboptimal treatment response.
[2019-11-29] MEDS: Simvastatin 20 MG Tab PO SCH (21:09)
[2019-11-30] MEDS: Linezolid 600 MG in Premix Bag 1 BAG IV SCH ×2 (02:01→16:14)
[2019-11-30] MEDS: Doxycycline 100 MG in Sodium Chloride 0.9% 100 ML IV SCH ×2 (04:01→14:46)
[2019-11-30] MEDS: Albuterol 0.083% 2.5 MG/3 ML Neb Soln NEB PRN (06:17)
[2019-11-30] MEDS: Budesonide 0.5 MG/2 ML Neb Susp NEB SCH ×2 (06:17→20:32)
[2019-11-30] MEDS: Furosemide 20 MG Tab PO SCH (09:01)
[2019-11-30] MEDS: Piperacillin/Tazobactam 4.5 GM in Sodium Chloride 0.9% 100 ML IV SCH ×3 (09:01→23:43)
[2019-11-30] MEDS: Flecainide 50 MG Tab PO SCH ×2 (09:02→20:03)
[2019-11-30] MEDS: Tamsulosin 0.4 MG Cap.ER PO SCH (09:03)
[2019-11-30] MEDS: Ezetimibe 10 MG Tab PO SCH (09:03)
[2019-11-30] MEDS: Donepezil 10 MG Tab PO SCH (09:04)
[2019-11-30] MEDS: guaiFENesin 600 MG Tab.ER PO SCH ×2 (09:04→20:03)
[2019-11-30] MEDS: Allopurinol 100 MG Tab PO SCH (09:04)
[2019-11-30] MEDS: Pantoprazole 40 MG Vial IVPUSH SCH ×2 (09:06→20:03)
[2019-11-30] MEDS ORDERED: Vancomycin 1 GM, Vancomycin 500 MG in Sodium Chloride 0.9% 500 ML IV SCH (13:00)
--- NOTE | 2019-11-30 18:26 | PCM.PN ---
- General Info Date of Service: 11/30/19 Subjective Update: Slept OK Tolerating diet Ambulating with assistance Working with PT/OT Feels OK - Patient Data Vitals - Most Recent: Last Vital Signs Temp 98.1 F 11/30/19 15:49 Pulse 78 11/30/19 15:49 Resp 24 H 11/30/19 15:49 BP 135/65 11/30/19 15:49 Pulse Ox 96 11/30/19 15:49 Weight - Most Recent: 89.993 kg - Exam Quality Assessment: Supplemental Oxygen General: Alert, Oriented, Cooperative, No Acute Distress HEENT: Pupils Equal, Pupils Reactive, EOMI, Mucous Membr. Moist/[place] Neck: Supple, Trachea Midline, No Thyromegaly. No: Lymphadenopathy Lungs: Decreased Breath Sounds, Crackles, Wheezing. No: Rales, Rhonchi, Rub Cardiovascular: Irregular Rhythm, Tachycardia. No: Murmurs, Gallops, Rubs GI/Abdominal Exam: Normal Bowel Sounds, Soft, Non-Tender, No Organomegaly. No: Distended, Guarding, Rigid, Rebound Back Exam: Normal Inspection. No: CVA Tenderness (L), CVA Tenderness (R) Extremities: Non-Tender, Pedal Edema, Slow Capillary Refill Sepsis Event Note - Evaluation Sepsis Screening Result: No Definite Risk - Focused Exam Vital Signs: Vital Signs Temp Pulse Resp BP Pulse Ox 11/30/19 15:49 98.1 F 78 24 H 135/65 96 11/30/19 11:23 97.9 F 78 20 129/82 96 11/30/19 08:18 97.5 F 79 24 H 136/58 L 94 L Date Exam was Performed: 12/02/19 Time Exam was Performed: 12:15 - Problem List & Annotations (1) Acute kidney injury SNOMED Code(s): 43286873, 02594832 Code(s): N17.9 - ACUTE KIDNEY FAILURE, UNSPECIFIED Status: Acute Current Visit: Yes (2) Aspiration pneumonia SNOMED Code(s): 735881038 Code(s): J69.0 - PNEUMONITIS DUE TO INHALATION OF FOOD AND VOMIT Status: Acute Current Visit: Yes (3) Chronic kidney disease (CKD), stage III (moderate) SNOMED Code(s): 947264815 Code(s): N18.3 - CHRONIC KIDNEY DISEASE, STAGE 3 (MODERATE) Status: Acute Current Visit: Yes (4) Dysphagia SNOMED Code(s): 64327962, 808091609 Code(s): R13.10 - DYSPHAGIA, UNSPECIFIED Status: Acute Current Visit: Yes (5) Hypertension SNOMED Code(s): 60205516 Code(s): I10 - ESSENTIAL (PRIMARY) HYPERTENSION Status: Acute Current Visit: Yes (6) Hypoxia SNOMED Code(s): 485897010 Code(s): R09.02 - HYPOXEMIA Status: Acute Priority: High Current Visit : Yes (7) Upper gastrointestinal bleed SNOMED Code(s): 54354516 Code(s): K92.2 - GASTROINTESTINAL HEMORRHAGE, UNSPECIFIED Status: Acute Current Visit: Yes (8) Acute respiratory failure with hypoxia SNOMED Code(s): 08874473, 392852051 Code(s): J96.01 - ACUTE RESPIRATORY FAILURE WITH HYPOXIA Status: Acute Current Visit: No (9) Atrial fibrillation and flutter SNOMED Code(s): 683315462 Code(s): I48.91 - UNSPECIFIED ATRIAL FIBRILLATION; I48.92 - UNSPECIFIED ATRIAL FLUTTER Status: Acute Current Visit: No (10) COPD exacerbation SNOMED Code(s): 701902680 Code(s): J44.1 - CHRONIC OBSTRUCTIVE PULMONARY DISEASE W (ACUTE) EXACERBATION Status: Acute Current Visit: No (11) Chronic atrial fibrillation with RVR SNOMED Code(s): 163789209, 176439784993638 Code(s): I48.2 - CHRONIC ATRIAL FIBRILLATION * DO NOT USE * Status: Acute Current Visit: No (12) Chronic renal insufficiency SNOMED Code(s): 535766612 Code(s): N18.9 - CHRONIC KIDNEY DISEASE, UNSPECIFIED Status: Acute Current Visit: No (13) GERD (gastroesophageal reflux disease) SNOMED Code(s): 093897586 Code(s): K21.9 - GASTRO-ESOPHAGEAL REFLUX DISEASE WITHOUT ESOPHAGITIS Status: Acute Current Visit: No Qualifiers: Esophagitis presence: without esophagitis Qualified Code(s): K21.9 - Gastro -esophageal reflux disease without esophagitis (14) Pulmonary fibrosis SNOMED Code(s): 98979278 Code(s): J84.10 - PULMONARY FIBROSIS, UNSPECIFIED Status: Acute Current Visit: No (15) Hypokalemia SNOMED Code(s): 17816676 Code(s): E87.6 - HYPOKALEMIA Status: Acute Current Visit: Yes - Problem List Review Problem List Initiated/Reviewed/Updated: Yes - Plan Plan:: Aspiration pneumonia Acute on chronic hypoxemic respiratory failure Unspecified pulmonary fibrosis Dysphagia, oropharyngeal Worsening shortness of breath --> CXR on admission with BL infiltrates Sputum 07/2019 + MRSA ER given Zosyn and Rocephin-- Continued on doxy and Zosyn Elevated WBC count 23 in ER--> normal today Speech therapy recommended nectar thickened liquids Tmax 98.1 Procalcitonin elevated 11/28 Sputum growing klebsiella, VRE, MRSA and alirio PLAN - Switched to Linezolid - Continue CPT - Continue scheduled DuoNebs, pulmicort and mucinex - Incentive spirometry Atrial fibrillation and flutter with RVR HR trend 70-119 Transferred to ICU 11/27 for Diltiazem drip --> rate controlled with bolus diltiazem and increase in home flecainide dose PLAN - Monitor VS - Increase Flecainide Upper GI bleed Hb stable PLAN - Continue Protonix Volume depletion Chronic kidney disease (CKD), stage III (moderate) Acute kidney injury, resolved Volume depleted on admission 2/2 GI losses (vomiting) Baseline GFR 30-40s, GFR today 37 PLAN - Monitory urine output - Renally dosed medications Hypertension BP trend 126-143/54-71 PLAN - Continue home medications - PRN hydralazine PROPHYLAXIS DVT- SCD's due to bleed GI- Protonix CODE STATUS: DNR/DNI DISPOSITION: Patient will remain admitted for IV antibiotics and monitorization. Comes from home with . PT recommending SNF with PT/OT Patient requiring hospitalization greater than 96 days due to suboptimal treatment response.
[2019-11-30] MEDS ORDERED: Potassium Chloride 10 MEQ in Premix Bag 1 BAG IV SCH (18:30)
[2019-11-30] MEDS: Potassium Chloride 20 MEQ Tab.ER PO SCH ×2 (18:44→22:12)
[2019-11-30] MEDS: Simvastatin 20 MG Tab PO SCH (20:03)
[2019-11-30] MEDS ORDERED: Sodium Chloride 0.9% 500 ML IV SCH (20:15)
[2019-12-01] MEDS: Linezolid 600 MG in Premix Bag 1 BAG IV SCH (01:37)
[2019-12-01] MEDS: Doxycycline 100 MG in Sodium Chloride 0.9% 100 ML IV SCH (03:35)
[2019-12-01] MEDS: Budesonide 0.5 MG/2 ML Neb Susp NEB SCH ×2 (05:42→20:38)
[2019-12-01] MEDS: Donepezil 10 MG Tab PO SCH (08:09)
[2019-12-01] MEDS: Tamsulosin 0.4 MG Cap.ER PO SCH (08:10)
[2019-12-01] MEDS: Furosemide 20 MG Tab PO SCH (08:10)
[2019-12-01] MEDS: guaiFENesin 600 MG Tab.ER PO SCH ×2 (08:10→21:05)
[2019-12-01] MEDS: Potassium Chloride 20 MEQ Tab.ER PO SCH (08:10)
[2019-12-01] MEDS: Flecainide 50 MG Tab PO SCH ×2 (08:11→21:05)
[2019-12-01] MEDS: Pantoprazole 40 MG Vial IVPUSH SCH ×2 (08:11→21:05)
[2019-12-01] MEDS: Allopurinol 100 MG Tab PO SCH (08:11)
[2019-12-01] MEDS: Ezetimibe 10 MG Tab PO SCH (08:11)
[2019-12-01] MEDS ORDERED: Phosphorus #1 250 MG Tab PO ONE (08:25)
[2019-12-01] MEDS ORDERED: Magnesium Sulfate/Water 4 GM in Premix Bag 1 BAG IV ONE (08:25)
[2019-12-01] MEDS: Piperacillin/Tazobactam 4.5 GM in Sodium Chloride 0.9% 100 ML IV SCH (10:09)
[2019-12-01] MEDS: Linezolid 600 MG Tab PO SCH ×2 (13:31→21:05)
--- NOTE | 2019-12-01 15:10 | PCM.PN ---
- General Info Date of Service: 12/01/19 Subjective Update: Feeling ok Tolerating diet Slept OK - Patient Data Vitals - Most Recent: Last Vital Signs Temp 97.5 F 12/01/19 12:51 Pulse 74 12/01/19 12:51 Resp 20 12/01/19 12:51 BP 137/79 12/01/19 12:51 Pulse Ox 97 12/01/19 12:51 Weight - Most Recent: 88.677 kg - Exam General: Alert, Oriented, Cooperative, No Acute Distress HEENT: Pupils Equal, Pupils Reactive, EOMI. No: Mucous Membr. Moist/[place] Neck: Supple, Trachea Midline, No JVD, No Thyromegaly. No: +2 Carotid Pulse wo Bruit, Lymphadenopathy Lungs: Decreased Breath Sounds, Crackles. No: Rales, Rhonchi, Rub, Wheezing Cardiovascular: Regular Rate, Irregular Rhythm. No: Murmurs, Gallops GI/Abdominal Exam: Normal Bowel Sounds, Soft, Non-Tender, No Organomegaly. No: Distended, Guarding, Rigid, Rebound Back Exam: Normal Inspection. No: CVA Tenderness (L), CVA Tenderness (R) Extremities: Non-Tender, Pedal Edema, Slow Capillary Refill Sepsis Event Note - Evaluation Sepsis Screening Result: No Definite Risk - Focused Exam Vital Signs: Vital Signs Temp Pulse Resp BP Pulse Ox Pulse Ox 12/01/19 12:51 97.5 F 74 20 137/79 97 12/01/19 07:32 97.7 F 75 20 156/74 H 93 L 12/01/19 05:44 96 12/01/19 03:40 66 100/80 96 Date Exam was Performed: 12/02/19 Time Exam was Performed: 12:20 - Problem List & Annotations (1) Acute kidney injury SNOMED Code(s): 08069585, 31228352 Code(s): N17.9 - ACUTE KIDNEY FAILURE, UNSPECIFIED Status: Acute Current Visit: Yes (2) Aspiration pneumonia SNOMED Code(s): 778603421 Code(s): J69.0 - PNEUMONITIS DUE TO INHALATION OF FOOD AND VOMIT Status: Acute Current Visit: Yes (3) Chronic kidney disease (CKD), stage III (moderate) SNOMED Code(s): 962598046 Code(s): N18.3 - CHRONIC KIDNEY DISEASE, STAGE 3 (MODERATE) Status: Acute Current Visit: Yes (4) Dysphagia SNOMED Code(s): 12012897, 210344056 Code(s): R13.10 - DYSPHAGIA, UNSPECIFIED Status: Acute Current Visit: Yes (5) Hypertension SNOMED Code(s): 93799919 Code(s): I10 - ESSENTIAL (PRIMARY) HYPERTENSION Status: Acute Current Visit: Yes (6) Hypokalemia SNOMED Code(s): 60384803 Code(s): E87.6 - HYPOKALEMIA Status: Acute Current Visit: Yes (7) Hypoxia SNOMED Code(s): 718561120 Code(s): R09.02 - HYPOXEMIA Status: Acute Priority: High Current Visit : Yes (8) Upper gastrointestinal bleed SNOMED Code(s): 19354591 Code(s): K92.2 - GASTROINTESTINAL HEMORRHAGE, UNSPECIFIED Status: Acute Current Visit: Yes (9) Acute renal failure SNOMED Code(s): 38779208 Code(s): N17.9 - ACUTE KIDNEY FAILURE, UNSPECIFIED Status: Acute Priority : High Current Visit: No Qualifiers: Acute renal failure type: unspecified Qualified Code(s): N17.9 - Acute kidney failure, unspecified (10) Acute respiratory failure with hypoxia SNOMED Code(s): 71640026, 555092161 Code(s): J96.01 - ACUTE RESPIRATORY FAILURE WITH HYPOXIA Status: Acute Current Visit: No (11) Atrial fibrillation and flutter SNOMED Code(s): 797788330 Code(s): I48.91 - UNSPECIFIED ATRIAL FIBRILLATION; I48.92 - UNSPECIFIED ATRIAL FLUTTER Status: Acute Current Visit: No (12) COPD exacerbation SNOMED Code(s): 431440852 Code(s): J44.1 - CHRONIC OBSTRUCTIVE PULMONARY DISEASE W (ACUTE) EXACERBATION Status: Acute Current Visit: No (13) Chronic atrial fibrillation with RVR SNOMED Code(s): 503215997, 755972800654995 Code(s): I48.2 - CHRONIC ATRIAL FIBRILLATION * DO NOT USE * Status: Acute Current Visit: No (14) Chronic hypoxemic respiratory failure SNOMED Code(s): 821676655 Code(s): J96.11 - CHRONIC RESPIRATORY FAILURE WITH HYPOXIA Status: Acute Current Visit: No (15) GERD (gastroesophageal reflux disease) SNOMED Code(s): 382382158 Code(s): K21.9 - GASTRO-ESOPHAGEAL REFLUX DISEASE WITHOUT ESOPHAGITIS Status: Acute Current Visit: No Qualifiers: Esophagitis presence: without esophagitis Qualified Code(s): K21.9 - Gastro -esophageal reflux disease without esophagitis (16) Gouty arthritis of right great toe SNOMED Code(s): 3039970308164504 Code(s): M10.9 - GOUT, UNSPECIFIED Status: Acute Current Visit: No (17) Oropharyngeal dysphagia SNOMED Code(s): 08633546 Code(s): R13.12 - DYSPHAGIA, OROPHARYNGEAL PHASE Status: Acute Current Visit: No (18) Physical deconditioning SNOMED Code(s): 02498755844137 Code(s): R53.81 - OTHER MALAISE Status: Acute Current Visit: No (19) Chronic renal insufficiency, stage III (moderate) SNOMED Code(s): 928982275 Code(s): N18.3 - CHRONIC KIDNEY DISEASE, STAGE 3 (MODERATE) Status: Chronic Priority: Medium Current Visit: No - Problem List Review Problem List Initiated/Reviewed/Updated: Yes - Plan Plan:: Aspiration pneumonia Acute on chronic hypoxemic respiratory failure Unspecified pulmonary fibrosis Dysphagia, oropharyngeal Worsening shortness of breath --> CXR on admission with BL infiltrates Sputum 07/2019 + MRSA ER given Zosyn and Rocephin-- Continued on doxy and Zosyn Elevated WBC count 23 in ER--> normal today Speech therapy recommended nectar thickened liquids Tmax 98.1 Procalcitonin elevated 11/28 Sputum growing klebsiella, VRE, MRSA and alirio-->started linezolid PLAN - Continue Linezolid - Continue CPT - Continue scheduled DuoNebs, pulmicort and mucinex - Incentive spirometry Atrial fibrillation and flutter with RVR HR trend 74-77 Transferred to ICU 11/27 for Diltiazem drip --> rate controlled with bolus diltiazem and increase in home flecainide dose--> out of ICU PLAN - Monitor VS - Increase Flecainide Upper GI bleed Hb stable No melena or hematochezia PLAN - Continue Protonix Volume depletion Chronic kidney disease (CKD), stage III (moderate) Acute kidney injury, resolved Volume depleted on admission 2/2 GI losses (vomiting) Baseline GFR 30-40s PLAN - Monitory urine output - Renally dosed medications Hypertension BP trend 108-136/58-91 PLAN - Continue home medications - PRN hydralazine PROPHYLAXIS DVT- SCD's due to bleed GI- Protonix CODE STATUS: DNR/DNI DISPOSITION: Patient will remain admitted for IV antibiotics and monitorization. Comes from home with . PT recommending SNF with PT/OT Patient requiring hospitalization greater than 96 days due to suboptimal treatment response.
[2019-12-01] MEDS: Simvastatin 20 MG Tab PO SCH (21:05)
[2019-12-02] MEDS: Budesonide 0.5 MG/2 ML Neb Susp NEB SCH ×2 (06:02→21:32)
[2019-12-02] MEDS: Pantoprazole 40 MG Vial IVPUSH SCH (08:55)
[2019-12-02] MEDS: Allopurinol 100 MG Tab PO SCH (08:56)
[2019-12-02] MEDS: Potassium Chloride 20 MEQ Tab.ER PO SCH (08:56)
[2019-12-02] MEDS: Magnesium Oxide 400 MG Tab PO SCH (08:56)
[2019-12-02] MEDS: Flecainide 50 MG Tab PO SCH ×2 (08:56→20:19)
[2019-12-02] MEDS: Donepezil 10 MG Tab PO SCH (08:56)
[2019-12-02] MEDS: Tamsulosin 0.4 MG Cap.ER PO SCH (08:56)
[2019-12-02] MEDS: Furosemide 20 MG Tab PO SCH (08:57)
[2019-12-02] MEDS: Ezetimibe 10 MG Tab PO SCH (08:57)
[2019-12-02] MEDS: Linezolid 600 MG Tab PO SCH ×2 (08:57→20:18)
[2019-12-02] MEDS: guaiFENesin 600 MG Tab.ER PO SCH ×2 (08:57→20:18)
[2019-12-02] MEDS: Simvastatin 20 MG Tab PO SCH (20:17)
--- NOTE | 2019-12-02 21:46 | PCM.PN ---
- General Info Date of Service: 12/02/19 Subjective Update: Feeling OK Tolerating diet Out of bed most of the day Slept OK - Patient Data Vitals - Most Recent: Last Vital Signs Temp 97.9 F 12/02/19 19:50 Pulse 73 12/02/19 19:50 Resp 44 H 12/02/19 20:37 BP 129/80 12/02/19 19:50 Pulse Ox 97 12/02/19 21:33 Weight - Most Recent: 88.677 kg - Exam Quality Assessment: Supplemental Oxygen General: Alert, Oriented, Cooperative, No Acute Distress HEENT: Pupils Equal, Pupils Reactive, EOMI, Mucous Membr. Moist/[place] Neck: Supple, Trachea Midline, No JVD, No Thyromegaly. No: Lymphadenopathy Lungs: Decreased Breath Sounds, Crackles. No: Rales, Rhonchi, Rub, Stridor Cardiovascular: Regular Rate, Irregular Rhythm. No: Murmurs, Gallops, Rubs GI/Abdominal Exam: Normal Bowel Sounds, Soft, Non-Tender. No: Distended, Guarding, Rigid, Rebound Back Exam: Normal Inspection, Decreased Range of Motion. No: CVA Tenderness (L) , CVA Tenderness (R), Paraspinal Tenderness Extremities: Normal Inspection, Non-Tender, Pedal Edema, Slow Capillary Refill Neurological: No New Focal Deficit Psy/Mental Status: Alert, Normal Affect, Normal Mood Sepsis Event Note - Evaluation Sepsis Screening Result: No Definite Risk - Focused Exam Vital Signs: Vital Signs Temp Pulse Resp BP Pulse Ox Pulse Ox 12/02/19 21:33 97 12/02/19 20:37 44 H 12/02/19 19:50 97.9 F 73 20 129/80 98 12/02/19 15:07 98.1 F 73 20 103/87 96 12/02/19 11:51 98.2 F 68 28 H 114/74 96 Date Exam was Performed: 12/04/19 Time Exam was Performed: 05:03 - Problem List & Annotations (1) Acute kidney injury SNOMED Code(s): 79687899, 17134406 Code(s): N17.9 - ACUTE KIDNEY FAILURE, UNSPECIFIED Status: Acute Current Visit: Yes (2) Aspiration pneumonia SNOMED Code(s): 043644724 Code(s): J69.0 - PNEUMONITIS DUE TO INHALATION OF FOOD AND VOMIT Status: Acute Current Visit: Yes (3) Chronic kidney disease (CKD), stage III (moderate) SNOMED Code(s): 012400461 Code(s): N18.3 - CHRONIC KIDNEY DISEASE, STAGE 3 (MODERATE) Status: Acute Current Visit: Yes (4) Dysphagia SNOMED Code(s): 37483572, 747611102 Code(s): R13.10 - DYSPHAGIA, UNSPECIFIED Status: Acute Current Visit: Yes (5) Hypertension SNOMED Code(s): 02566888 Code(s): I10 - ESSENTIAL (PRIMARY) HYPERTENSION Status: Acute Current Visit: Yes (6) Hypokalemia SNOMED Code(s): 91819876 Code(s): E87.6 - HYPOKALEMIA Status: Acute Current Visit: Yes (7) Hypoxia SNOMED Code(s): 488991938 Code(s): R09.02 - HYPOXEMIA Status: Acute Priority: High Current Visit : Yes (8) Upper gastrointestinal bleed SNOMED Code(s): 60566983 Code(s): K92.2 - GASTROINTESTINAL HEMORRHAGE, UNSPECIFIED Status: Acute Current Visit: Yes (9) Acute renal failure SNOMED Code(s): 17336053 Code(s): N17.9 - ACUTE KIDNEY FAILURE, UNSPECIFIED Status: Acute Priority : High Current Visit: No Qualifiers: Acute renal failure type: unspecified Qualified Code(s): N17.9 - Acute kidney failure, unspecified (10) Acute respiratory failure with hypoxia SNOMED Code(s): 60624037, 814889247 Code(s): J96.01 - ACUTE RESPIRATORY FAILURE WITH HYPOXIA Status: Acute Current Visit: No (11) Atrial fibrillation and flutter SNOMED Code(s): 022983508 Code(s): I48.91 - UNSPECIFIED ATRIAL FIBRILLATION; I48.92 - UNSPECIFIED ATRIAL FLUTTER Status: Acute Current Visit: No (12) COPD exacerbation SNOMED Code(s): 532801776 Code(s): J44.1 - CHRONIC OBSTRUCTIVE PULMONARY DISEASE W (ACUTE) EXACERBATION Status: Acute Current Visit: No (13) Chronic atrial fibrillation with RVR SNOMED Code(s): 076446747, 110697730013360 Code(s): I48.2 - CHRONIC ATRIAL FIBRILLATION * DO NOT USE * Status: Acute Current Visit: No (14) Chronic hypoxemic respiratory failure SNOMED Code(s): 687493339 Code(s): J96.11 - CHRONIC RESPIRATORY FAILURE WITH HYPOXIA Status: Acute Current Visit: No (15) GERD (gastroesophageal reflux disease) SNOMED Code(s): 942066832 Code(s): K21.9 - GASTRO-ESOPHAGEAL REFLUX DISEASE WITHOUT ESOPHAGITIS Status: Acute Current Visit: No Qualifiers: Esophagitis presence: without esophagitis Qualified Code(s): K21.9 - Gastro -esophageal reflux disease without esophagitis (16) Gouty arthritis of right great toe SNOMED Code(s): 2751617011288475 Code(s): M10.9 - GOUT, UNSPECIFIED Status: Acute Current Visit: No (17) Oropharyngeal dysphagia SNOMED Code(s): 54523200 Code(s): R13.12 - DYSPHAGIA, OROPHARYNGEAL PHASE Status: Acute Current Visit: No (18) Physical deconditioning SNOMED Code(s): 65024691347842 Code(s): R53.81 - OTHER MALAISE Status: Acute Current Visit: No (19) Chronic renal insufficiency, stage III (moderate) SNOMED Code(s): 462198200 Code(s): N18.3 - CHRONIC KIDNEY DISEASE, STAGE 3 (MODERATE) Status: Chronic Priority: Medium Current Visit: No (20) Hypernatremia SNOMED Code(s): 059707796 Code(s): E87.0 - HYPEROSMOLALITY AND HYPERNATREMIA Status: Acute Current Visit: Yes (21) VRE (vancomycin-resistant Enterococci) infection SNOMED Code(s): 592784689 Code(s): A49.1 - STREPTOCOCCAL INFECTION, UNSPECIFIED SITE; Z16.21 - RESISTANCE TO VANCOMYCIN Status: Acute Current Visit: Yes - Problem List Review Problem List Initiated/Reviewed/Updated: Yes - Plan Plan:: 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, klebsiella and MRSA Acute on chronic hypoxemic respiratory failure Unspecified pulmonary fibrosis Dysphagia, oropharyngeal Worsening shortness of breath --> CXR on admission with BL infiltrates Sputum 07/2019 + MRSA ER given Zosyn and Rocephin-- Continued on doxy and Zosyn Elevated WBC count 23 in ER--> normal today Speech therapy recommended nectar thickened liquids Tmax 98.1 Procalcitonin elevated 11/28 PLAN - Continue Linezolid day 4 - Continue CPT - Continue scheduled DuoNebs, pulmicort and mucinex - Incentive spirometry - Hold trazodone as long as he is on Linezolid - Monitor bone marrow suppression due to linezolid use Atrial fibrillation and flutter with RVR HR trend 66-82x' Transferred to ICU 11/27 for Diltiazem drip --> rate controlled with bolus diltiazem and increase in home flecainide dose--> out of ICU As long as he stays on O2 supplementation at 2L his HR is controlled PLAN - Monitor VS - Max dose Flecainide - Keep O2 supplementation at 2L Upper GI bleed Hb stable No melena or hematochezia PLAN - Continue Protonix Volume depletion Chronic kidney disease (CKD), stage III (moderate) Acute kidney injury, resolved Volume depleted on admission 2/2 GI losses (vomiting) Baseline GFR improving steadily, 39 today PLAN - Monitory urine output - Renally dosed medications Hypertension BP trend 100-156/74-83 PLAN - Continue home medications - PRN hydralazine PROPHYLAXIS DVT- SCD's due to bleed GI- Protonix CODE STATUS: DNR/DNI DISPOSITION: Patient will remain admitted on oral antibiotics, comes from home with , PT evaluation recommending SNF placement. Patient requiring hospitalization greater than 96 days due to suboptimal treatment response.
[2019-12-03] MEDS: Budesonide 0.5 MG/2 ML Neb Susp NEB SCH ×2 (06:25→21:06)
[2019-12-03] MEDS: guaiFENesin 600 MG Tab.ER PO SCH ×2 (08:16→20:49)
[2019-12-03] MEDS: Potassium Chloride 20 MEQ Tab.ER PO SCH (08:17)
[2019-12-03] MEDS: Linezolid 600 MG Tab PO SCH ×2 (08:21→20:47)
[2019-12-03] MEDS: Donepezil 10 MG Tab PO SCH (08:22)
[2019-12-03] MEDS: Allopurinol 100 MG Tab PO SCH (08:23)
[2019-12-03] MEDS: Furosemide 20 MG Tab PO SCH (08:24)
[2019-12-03] MEDS: Magnesium Oxide 400 MG Tab PO SCH (08:24)
[2019-12-03] MEDS: Tamsulosin 0.4 MG Cap.ER PO SCH (08:24)
[2019-12-03] MEDS: Flecainide 50 MG Tab PO SCH ×2 (08:25→20:47)
[2019-12-03] MEDS: Ezetimibe 10 MG Tab PO SCH (08:25)
[2019-12-03] MEDS: Albuterol 0.083% 2.5 MG/3 ML Neb Soln NEB PRN ×2 (14:09→16:56)
[2019-12-03] MEDS: Simvastatin 20 MG Tab PO SCH (20:49)
--- NOTE | 2019-12-04 04:49 | PCM.PN ---
- General Info Date of Service: 12/03/19 - Patient Data Weight - Most Recent: 84.504 kg Sepsis Event Note - Evaluation Sepsis Screening Result: No Definite Risk - Problem List & Annotations (1) Acute kidney injury SNOMED Code(s): 62430777, 76415550 Code(s): N17.9 - ACUTE KIDNEY FAILURE, UNSPECIFIED Status: Acute Current Visit: Yes (2) Aspiration pneumonia SNOMED Code(s): 991544030 Code(s): J69.0 - PNEUMONITIS DUE TO INHALATION OF FOOD AND VOMIT Status: Acute Current Visit: Yes (3) Chronic kidney disease (CKD), stage III (moderate) SNOMED Code(s): 697170747 Code(s): N18.3 - CHRONIC KIDNEY DISEASE, STAGE 3 (MODERATE) Status: Acute Current Visit: Yes (4) Dysphagia SNOMED Code(s): 54447476, 048892184 Code(s): R13.10 - DYSPHAGIA, UNSPECIFIED Status: Acute Current Visit: Yes (5) Hypertension SNOMED Code(s): 11650447 Code(s): I10 - ESSENTIAL (PRIMARY) HYPERTENSION Status: Acute Current Visit: Yes (6) Hypokalemia SNOMED Code(s): 67931357 Code(s): E87.6 - HYPOKALEMIA Status: Acute Current Visit: Yes (7) Hypoxia SNOMED Code(s): 298818679 Code(s): R09.02 - HYPOXEMIA Status: Acute Priority: High Current Visit : Yes (8) Upper gastrointestinal bleed SNOMED Code(s): 93059083 Code(s): K92.2 - GASTROINTESTINAL HEMORRHAGE, UNSPECIFIED Status: Acute Current Visit: Yes (9) Acute renal failure SNOMED Code(s): 58007638 Code(s): N17.9 - ACUTE KIDNEY FAILURE, UNSPECIFIED Status: Acute Priority : High Current Visit: No Qualifiers: Acute renal failure type: unspecified Qualified Code(s): N17.9 - Acute kidney failure, unspecified (10) Acute respiratory failure with hypoxia SNOMED Code(s): 04309561, 758493532 Code(s): J96.01 - ACUTE RESPIRATORY FAILURE WITH HYPOXIA Status: Acute Current Visit: No (11) Atrial fibrillation and flutter SNOMED Code(s): 301087581 Code(s): I48.91 - UNSPECIFIED ATRIAL FIBRILLATION; I48.92 - UNSPECIFIED ATRIAL FLUTTER Status: Acute Current Visit: No (12) COPD exacerbation SNOMED Code(s): 878019017 Code(s): J44.1 - CHRONIC OBSTRUCTIVE PULMONARY DISEASE W (ACUTE) EXACERBATION Status: Acute Current Visit: No (13) Chronic atrial fibrillation with RVR SNOMED Code(s): 189866794, 634586761085369 Code(s): I48.2 - CHRONIC ATRIAL FIBRILLATION * DO NOT USE * Status: Acute Current Visit: No (14) Chronic hypoxemic respiratory failure SNOMED Code(s): 095817799 Code(s): J96.11 - CHRONIC RESPIRATORY FAILURE WITH HYPOXIA Status: Acute Current Visit: No (15) GERD (gastroesophageal reflux disease) SNOMED Code(s): 122814374 Code(s): K21.9 - GASTRO-ESOPHAGEAL REFLUX DISEASE WITHOUT ESOPHAGITIS Status: Acute Current Visit: No Qualifiers: Esophagitis presence: without esophagitis Qualified Code(s): K21.9 - Gastro -esophageal reflux disease without esophagitis (16) Gouty arthritis of right great toe SNOMED Code(s): 7332123695375950 Code(s): M10.9 - GOUT, UNSPECIFIED Status: Acute Current Visit: No (17) Oropharyngeal dysphagia SNOMED Code(s): 70840542 Code(s): R13.12 - DYSPHAGIA, OROPHARYNGEAL PHASE Status: Acute Current Visit: No (18) Physical deconditioning SNOMED Code(s): 22756263723530 Code(s): R53.81 - OTHER MALAISE Status: Acute Current Visit: No (19) Chronic renal insufficiency, stage III (moderate) SNOMED Code(s): 919747017 Code(s): N18.3 - CHRONIC KIDNEY DISEASE, STAGE 3 (MODERATE) Status: Chronic Priority: Medium Current Visit: No - Problem List Review Problem List Initiated/Reviewed/Updated: Yes - Plan Plan:: 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, klebsiella and MRSA Acute on chronic hypoxemic respiratory failure Unspecified pulmonary fibrosis Dysphagia, oropharyngeal Worsening shortness of breath --> CXR on admission with BL infiltrates--> Zosyn and Rocephin in ED--> transitioned to Doxycycline and Zosyn WBC on admission 23--> baseline now Sputum 07/2019 + MRSA--> now 11/26--> + MRSA / Klebsiella / VRE faecium as well as alirio Patient does not have any oral flush, so alirio is not being treated Completed 5 days of doxycycline and 6 days of Zosyn Speech therapy evaluated and still recommending nectar thickened liquids Tmax 98.2 Procalcitonin significantly elevated 11/27 PLAN - Continue Linezolid day 4 to complete 10 days due to higher risk of reinfectino - Continue CPT - Continue scheduled DuoNebs, pulmicort and mucinex - Incentive spirometry - Hold trazodone as long as he is on Linezolid - Monitor bone marrow suppression due to linezolid use - Keep patient on 2L NC - Repeat procalcitonin in AM to evaluate ATB response Atrial fibrillation and flutter, rate controlled Resolved RVR HR trend 73-82x' Transferred to ICU 11/27 for Diltiazem drip --> rate controlled with bolus diltiazem and increase in home flecainide dose--> out of ICU As long as he stays on O2 supplementation at 2L his HR is controlled PLAN - Monitor VS - Max dose Flecainide - Keep O2 supplementation at 2L Upper GI bleed Hb stable No melena or hematochezia PLAN - Continue Protonix Chronic kidney disease (CKD), stage III (moderate) Acute kidney injury, resolved Volume depletion, resolved Volume depleted on admission 2/2 GI losses (vomiting) Baseline GFR improving steadily, stable today at 39 PLAN - Monitory urine output - Renally dosed medications Hypertension BP trend 103-143/66-87 PLAN - Continue home medications - PRN hydralazine PROPHYLAXIS DVT- SCD's due to bleed GI- Protonix CODE STATUS: DNR/DNI DISPOSITION: Patient will remain admitted on oral antibiotics, comes from home with , PT evaluation recommending SNF placement. [facility] had accepted patient initially for [facility] however now they are requesting that patient be made comfort measures aka given a life expectancy than 6 months. Family prefers [facility] but they are open to other options, pending acceptance. Patient requiring hospitalization greater than 96 days due to suboptimal treatment response.
[2019-12-04] MEDS: Budesonide 0.5 MG/2 ML Neb Susp NEB SCH ×2 (06:20→20:32)
[2019-12-04] MEDS: Ezetimibe 10 MG Tab PO SCH (08:01)
[2019-12-04] MEDS: Flecainide 50 MG Tab PO SCH ×2 (08:01→20:42)
[2019-12-04] MEDS: Furosemide 20 MG Tab PO SCH (08:01)
[2019-12-04] MEDS: Magnesium Oxide 400 MG Tab PO SCH (08:01)
[2019-12-04] MEDS: Tamsulosin 0.4 MG Cap.ER PO SCH (08:02)
[2019-12-04] MEDS: Linezolid 600 MG Tab PO SCH ×2 (08:02→20:42)
[2019-12-04] MEDS: Donepezil 10 MG Tab PO SCH (08:02)
[2019-12-04] MEDS: Potassium Chloride 20 MEQ Tab.ER PO SCH (08:02)
[2019-12-04] MEDS: guaiFENesin 600 MG Tab.ER PO SCH ×2 (08:02→20:42)
[2019-12-04] MEDS: Allopurinol 100 MG Tab PO SCH (08:02)
[2019-12-04] MEDS: Albuterol 0.083% 2.5 MG/3 ML Neb Soln NEB PRN (08:53)
--- NOTE | 2019-12-04 14:49 | PCM.PN ---
- General Info Date of Service: 12/04/19 Admission Dx/Problem (Free Text): Admission Diagnosis/Problem Admission Diagnosis/Problem Aspiration pneumonia Subjective Update: Patient continues to be short of breath. Nursing and respiratory therapy state this is his baseline over the last couple of days. - Review of Systems General: Reports: No Symptoms HEENT: Reports: No Symptoms Pulmonary: Reports: Shortness of Breath Cardiovascular: Reports: No Symptoms Gastrointestinal: Reports: No Symptoms - Patient Data Vitals - Most Recent: Last Vital Signs Temp 97.9 F 12/04/19 09:38 Pulse 71 12/04/19 09:38 Resp 44 H 12/04/19 09:38 BP 112/88 12/04/19 09:38 Pulse Ox 98 12/04/19 09:38 Weight - Most Recent: 186 lb 4.8 oz I&O - Last 24 Hours: Intake & Output 12/03/19 12/04/19 12/04/19 22:59 06:59 14:59 Intake Total 900 60 400 Output Total 650 350 Balance 250 -290 400 Imaging Impressions - Last 24 Hours: Chest x-ray shows improvement in interstitial changes and close to baseline. Lab Results Last 24 Hours: Laboratory Results - last 24 hr 12/04/19 12/04/19 Range/Units 05:31 05:31 WBC 8.70 (4.23-9.07) K/mm3 RBC 4.18 L (4.63-6.08) M/mm3 Hgb 10.9 L (13.7-17.5) gm/dl Hct 36.2 L (40.1-51.0) % MCV 86.6 (79.0-92.2) fl MCH 26.1 (25.7-32.2) pg MCHC 30.1 L (32.2-35.5) g/dl RDW Std Deviation 52.1 H (35.1-43.9) fL Plt Count 305 (163-337) K/mm3 MPV 8.7 L (9.4-12.3) fl Neut % (Auto) 78.2 H (34.0-67.9) % Lymph % (Auto) 13.3 L (21.8-53.1) % [place] % (Auto) 5.7 (5.3-12.2) % Eos % (Auto) 1.3 (0.8-7.0) Baso % (Auto) 0.1 (0.1-1.2) % Neut # (Auto) 6.80 H (1.78-5.38) K/mm3 Lymph # (Auto) 1.16 L (1.32-3.57) K/mm3 [place] # (Auto) 0.50 (0.30-0.82) K/mm3 Eos # (Auto) 0.11 (0.04-0.54) K/mm3 Baso # (Auto) 0.01 (0.01-0.08) K/mm3 Manual Slide Review Normal smear Sodium 152 H (136-145) mEq/L Potassium 4.1 (3.5-5.1) mEq/L Chloride 113 H (98-107) mEq/L Carbon Dioxide 30 (21-32) mEq/L Anion Gap 13.1 (5-15) BUN 24 H (7-18) mg/dL Creatinine 1.5 H (0.7-1.3) mg/dL Est Cr Clr Drug Dosing 41.73 mL/min Estimated GFR (MDRD) 45 (>60) mL/min BUN/Creatinine Ratio 16.0 (14-18) Glucose 95 (83-115) mg/dL Calcium 9.1 (8.5-10.1) mg/dL Phosphorus 3.6 (2.6-4.7) mg/dL Magnesium 2.1 (1.8-2.4) mg/dl Med Orders - Current: Current Medications Albuterol (Proventil Neb Soln) 2.5 mg NEB Q2H PRN PRN Reason: Dyspnea Last Admin: 12/04/19 08:53 Dose: 2.5 mg Allopurinol (Zyloprim) 100 mg PO DAILY [facility] Last Admin: 12/04/19 08:02 Dose: 100 mg Budesonide (Pulmicort) 0.5 mg NEB BIDRT [facility] Last Admin: 12/04/19 06:20 Dose: 0.5 mg Donepezil HCl (Aricept) 5 mg PO DAILY [facility] Last Admin: 12/04/19 08:02 Dose: 5 mg Ezetimibe (Zetia) 10 mg PO DAILY [facility] Last Admin: 12/04/19 08:01 Dose: 10 mg Flecainide Acetate (Tambocor) 200 mg PO BID [facility] Last Admin: 12/04/19 08:01 Dose: 200 mg Furosemide (Lasix) 20 mg PO DAILY [facility] Last Admin: 12/04/19 08:01 Dose: 20 mg Guaifenesin (Mucinex) 600 mg PO BID [facility] Last Admin: 12/04/19 08:02 Dose: 600 mg Linezolid (Zyvox) 600 mg PO BID [facility] Last Admin: 12/04/19 08:02 Dose: 600 mg Magnesium Oxide (Magnesium Oxide) 400 mg PO DAILY [facility] Last Admin: 12/04/19 08:01 Dose: 400 mg Ondansetron HCl (Zofran) 4 mg IVPUSH Q4H PRN PRN Reason: Nausea/Vomiting Last Admin: 11/25/19 22:09 Dose: 4 mg Potassium Chloride (Klor-Con M20) 40 meq PO DAILY [facility] Last Admin: 12/04/19 08:02 Dose: 40 meq Simvastatin (Zocor) 20 mg PO BEDTIME [facility] Last Admin: 12/03/19 20:49 Dose: 20 mg Sodium Chloride (Saline Flush) 10 ml FLUSH ASDIRECTED PRN PRN Reason: Keep Vein Open Last Admin: 11/25/19 15:58 Dose: 10 ml Tamsulosin HCl (Flomax) 0.4 mg PO DAILY [facility] Last Admin: 12/04/19 08:02 Dose: 0.4 mg Discontinued Medications Acetylcysteine (Mucomyst 20%) 800 mg NEB QIDRT [facility] Last Admin: 11/29/19 05:49 Dose: 800 mg Albuterol/Ipratropium (Duoneb 3.0-0.5 Mg/3 Ml) 3 ml NEB ONETIME ONE Stop: 11/25/19 15:22 Last Admin: 11/25/19 15:43 Dose: 3 ml Albuterol/Ipratropium (Duoneb 3.0-0.5 Mg/3 Ml) 3 ml NEB Q6HRRT [facility] Albuterol/Ipratropium (Duoneb 3.0-0.5 Mg/3 Ml) 3 ml NEB Q6HRRT [facility] Last Admin: 11/27/19 09:57 Dose: 3 ml Apixaban (Eliquis) 2.5 mg PO BID [facility] Last Admin: 11/25/19 20:10 Dose: 2.5 mg Diltiazem HCl (Cardizem) 20 mg IVPUSH ONETIME ONE Stop: 11/27/19 14:53 Last Admin: 11/27/19 15:06 Dose: 20 mg Diltiazem HCl (Cardizem) 30 mg IVPUSH ONETIME ONE Stop: 11/27/19 18:35 Last Admin: 11/27/19 18:46 Dose: 30 mg Diltiazem HCl (Cardizem Cd) 120 mg PO DAILY [facility] Last Admin: 11/28/19 08:06 Dose: 120 mg Flecainide Acetate (Tambocor) 100 mg PO BID [facility] Last Admin: 11/27/19 08:43 Dose: 100 mg Flecainide Acetate (Tambocor) 150 mg PO BID [facility] Last Admin: 11/28/19 20:56 Dose: 150 mg Furosemide (Lasix) 40 mg IVPUSH NOW ONE Stop: 11/26/19 17:01 Last Admin: 11/26/19 17:41 Dose: 40 mg Piperacillin Sod/Tazobactam (Sod 4.5 gm/ Sodium Chloride) 100 mls @ 200 mls/hr IV ONETIME ONE Stop: 11/25/19 16:28 Last Admin: 11/25/19 16:08 Dose: Not Given Piperacillin Sod/Tazobactam (Sod 4.5 gm/ Sodium Chloride) 100 mls @ 200 mls/hr IV ONETIME ONE Stop: 11/25/19 16:35 Last Admin: 11/25/19 16:34 Dose: 200 mls/hr Ceftriaxone Sodium 2 gm/ (Sodium Chloride) 100 mls @ 200 mls/hr IV ONETIME ONE Stop: 11/25/19 16:38 Last Admin: 11/25/19 17:06 Dose: 200 mls/hr Piperacillin Sod/Tazobactam (Sod 4.5 gm/ Sodium Chloride) 100 mls @ 25 mls/hr IV Q8H [facility] Last Admin: 12/01/19 10:09 Dose: 25 mls/hr Sodium Chloride (Normal Saline) 1,000 mls @ 100 mls/hr IV ASDIRECTED [facility] Last Admin: 11/26/19 13:56 Dose: 100 mls/hr Lactated Ringer's (Ringers, Lactated) 500 mls @ 500 mls/hr IV .BOLUS ONE Stop: 11/25/19 21:57 Last Admin: 11/25/19 21:35 Dose: 999 mls/hr Pantoprazole Sodium 80 mg/ (Sodium Chloride) 100 mls @ 8 mls/hr IV Q10H [facility] Last Admin: 11/27/19 06:18 Dose: Not Given Sodium Chloride (Normal Saline) 500 mls @ 999 mls/hr IV .BOLUS ONE Stop: 11/26/19 12:05 Last Admin: 11/26/19 11:47 Dose: Not Given Doxycycline Hyclate 100 mg/ (Sodium Chloride) 100 mls @ 100 mls/hr IV Q12H [facility] Last Admin: 12/01/19 03:35 Dose: 100 mls/hr Sodium Chloride (Normal Saline) 1,000 mls @ 50 mls/hr IV ASDIRECTED [facility] Last Admin: 11/27/19 05:03 Dose: 50 mls/hr Pantoprazole Sodium 80 mg/ (Sodium Chloride) 100 mls @ 8 mls/hr IV Q10H [facility] Last Admin: 11/27/19 02:52 Dose: 8 mls/hr Lactated Ringer's (Ringers, Lactated) 1,000 mls @ 75 mls/hr IV ASDIRECTED [facility] Last Admin: 11/27/19 11:21 Dose: 75 mls/hr Lactated Ringer's (Ringers, Lactated) Confirm Administered Dose 1,000 mls @ as directed .ROUTE .STK-MED ONE Stop: 11/27/19 11:13 Last Admin: 11/27/19 11:23 Dose: Not Given Vancomycin HCl 1 gm/Vancomycin HCl 500 mg/ Sodium Chloride 500 mls @ 250 mls/ hr IV Q24H [facility] Linezolid 600 mg/ Premix 300 mls @ 300 mls/hr IV Q12H [facility] Last Admin: 12/01/19 01:37 Dose: 300 mls/hr Potassium Chloride 10 meq/ (Premix) 100 mls @ 100 mls/hr IV Q1H [facility] Stop: 11/30/19 19:29 Last Admin: 11/30/19 18:55 Dose: 100 mls/hr Sodium Chloride (Normal Saline) 500 mls @ 100 mls/hr IV ASDIRECTED [facility] Last Admin: 11/30/19 20:28 Dose: 100 mls/hr Magnesium Sulfate 4 gm/ Premix 100 mls @ 25 mls/hr IV ONETIME ONE Stop: 12/01/19 08:26 Last Admin: 12/01/19 08:08 Dose: 25 mls/hr Labetalol HCl (Normodyne) 5 mg IVPUSH ONETIME ONE; Protocol Stop: 11/27/19 11:36 Last Admin: 11/27/19 11:43 Dose: 5 mg Linezolid (Zyvox) 600 mg PO BID [facility] Last Admin: 12/02/19 08:57 Dose: 600 mg Metoprolol Tartrate (Lopressor) 5 mg IVPUSH ONETIME ONE Stop: 11/26/19 12:50 Last Admin: 11/26/19 13:32 Dose: 5 mg Metoprolol Tartrate (Lopressor) 5 mg IVPUSH ONETIME ONE Stop: 11/26/19 21:42 Last Admin: 11/26/19 22:03 Dose: 5 mg Ondansetron HCl (Zofran) Confirm Administered Dose 4 mg .ROUTE .STK-MED ONE Stop: 11/25/19 21:57 Last Admin: 11/25/19 22:05 Dose: Not Given Pantoprazole Sodium (Protonix) 40 mg PO DAILY@0700 [facility] Pantoprazole Sodium (Protonix Iv) 80 mg IVPUSH BOLUS ONE Stop: 11/25/19 20:52 Last Admin: 11/25/19 21:21 Dose: 80 mg Pantoprazole Sodium (Protonix Iv) 40 mg IVPUSH BID [facility] Last Admin: 12/02/19 08:55 Dose: 40 mg Potassium Chloride (Klor-Con M20) 20 meq PO Q4H [facility] Stop: 11/30/19 22:31 Last Admin: 11/30/19 22:12 Dose: 20 meq Sodium Phosphate (Neutra-Phos) 250 mg PO ONETIME ONE Stop: 12/01/19 08:26 Last Admin: 12/01/19 08:09 Dose: 250 mg Trazodone HCl (Trazodone) 25 mg PO BEDTIME [facility] Last Admin: 11/28/19 20:58 Dose: 25 mg - Exam Quality Assessment: Supplemental Oxygen General: Alert HEENT: Pupils Equal, Mucous Membr. Moist/[place] Neck: Supple Lungs: Decreased Breath Sounds. No: Normal Respiratory Effort (Tachypnea) Cardiovascular: Irregular Rhythm, Other (Decreased heart sounds) GI/Abdominal Exam: Normal Bowel Sounds, Soft, No Organomegaly, No Distention Extremities: Normal Inspection, Normal Range of Motion, Non-Tender, No Pedal Edema Skin: Warm, Dry, Intact Sepsis Event Note - Evaluation Sepsis Screening Result: No Definite Risk - Focused Exam Vital Signs: Vital Signs Temp Pulse Resp BP Pulse Ox Pulse Ox 12/04/19 09:38 97.9 F 71 44 H 112/88 98 12/04/19 08:54 97 12/04/19 06:20 100 Date Exam was Performed: 12/04/19 Time Exam was Performed: 16:00 - Problem List Review Problem List Initiated/Reviewed/Updated: Yes - My Orders Last 24 Hours: My Active Orders 12/04/19 11:36 Antiembolic Devices [RC] PER UNIT ROUTINE AGATHA Hose [Antiembolic Hose] [OM.PC] Routine - Plan Plan:: 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, klebsiella and MRSA Acute on chronic hypoxemic respiratory failure Unspecified pulmonary fibrosis Dysphagia, oropharyngeal Worsening shortness of breath --> CXR on admission with BL infiltrates--> Zosyn and Rocephin in ED--> transitioned to Doxycycline and Zosyn WBC on admission 23--> baseline now Sputum 07/2019 + MRSA--> now 11/26--> + MRSA / Klebsiella / VRE faecium as well as alirio Patient does not have any oral flush, so alirio is not being treated Completed 5 days of doxycycline and 6 days of Zosyn Speech therapy evaluated and still recommending nectar thickened liquids Tmax 98.2 Procalcitonin significantly elevated 11/27 PLAN - Continue Linezolid day 6 to complete 10 days due to higher risk of reinfection - Continue CPT - Continue scheduled DuoNeb, Pulmicort and Mucinex - Incentive spirometry - Hold trazodone as long as he is on Linezolid - Monitor bone marrow suppression due to linezolid use - Keep patient on 2L NC Atrial fibrillation and flutter, rate controlled Resolved RVR HR trend [id number]' Transferred to ICU 11/27 for Diltiazem drip --> rate controlled with bolus diltiazem and increase in home flecainide dose--> out of ICU As long as he stays on O2 supplementation at 2L his HR is controlled PLAN - Monitor VS - Max dose Flecainide 200 mg BID - Keep O2 supplementation at 2L Upper GI bleed Hb stable No melena or hematochezia PLAN - Continue Protonix -Monitor CBC Chronic kidney disease (CKD), stage III (moderate) Acute kidney injury, resolved Volume depletion, resolved Volume depleted on admission 2/2 GI losses (vomiting) Baseline GFR improving steadily, stable today at 39 PLAN - Monitory urine output - Renally dosed medications Hypertension BP trend 103-143/66-87 PLAN - Continue home medications PROPHYLAXIS DVT- SCD's due to bleed GI- Protonix CODE STATUS: DNR/DNI DISPOSITION: Patient will remain admitted on oral antibiotics, comes from home with , PT evaluation recommending SNF placement. [facility] had accepted patient initially for [facility] placement however now they are requesting that patient be made comfort measures aka given a life expectancy than 6 months. Patient requiring hospitalization greater than 96 days due to suboptimal treatment response.
--- NOTE | 2019-12-04 15:21 | CR ---
Chest: Portable view of the chest was obtained. Comparison: Prior chest x-ray of 11/24/19. Interstitial changes are seen within both lungs. Findings are less prominent than on prior study and are getting close to baseline. No acute parenchymal change otherwise seen. Heart size and mediastinum are normal. Impression: 1. Chest x-ray appears improved from prior study. 2. Findings are now getting close to baseline. 3. Nothing acute is definitely appreciated. Diagnostic code #2 This report was dictated in [place] Standard Time
[2019-12-04] MEDS: Simvastatin 20 MG Tab PO SCH (20:42)
[2019-12-05] MEDS: Budesonide 0.5 MG/2 ML Neb Susp NEB SCH ×2 (06:39→22:14)
[2019-12-05] MEDS: Donepezil 10 MG Tab PO SCH (08:58)
[2019-12-05] MEDS: Potassium Chloride 20 MEQ Tab.ER PO SCH (08:59)
[2019-12-05] MEDS: Flecainide 50 MG Tab PO SCH ×2 (09:02→20:27)
[2019-12-05] MEDS: Magnesium Oxide 400 MG Tab PO SCH (09:03)
[2019-12-05] MEDS: Furosemide 20 MG Tab PO SCH (09:03)
[2019-12-05] MEDS: Ezetimibe 10 MG Tab PO SCH (09:04)
[2019-12-05] MEDS: Linezolid 600 MG Tab PO SCH ×2 (09:05→20:26)
[2019-12-05] MEDS: Allopurinol 100 MG Tab PO SCH (09:06)
[2019-12-05] MEDS: guaiFENesin 600 MG Tab.ER PO SCH ×2 (09:06→20:25)
[2019-12-05] MEDS: Tamsulosin 0.4 MG Cap.ER PO SCH (09:07)
[2019-12-05] MEDS: Dextrose 5% in Water 1,000 ML IV SCH ×2 (09:12→23:05)
--- NOTE | 2019-12-05 12:54 | PCM.PN ---
- General Info Date of Service: 12/05/19 Admission Dx/Problem (Free Text): Admission Diagnosis/Problem Admission Diagnosis/Problem Aspiration pneumonia Subjective Update: Patient complains of pain on his tongue and throat today with swallowing. Otherwise, he is breathing better. He is not taking orally as well. Sodium has been trending upward over the last few days. - Review of Systems General: Reports: No Symptoms HEENT: Reports: Sore Throat Pulmonary: Reports: No Symptoms Cardiovascular: Reports: No Symptoms Gastrointestinal: Reports: No Symptoms - Patient Data Vitals - Most Recent: Last Vital Signs Temp 97.9 F 12/05/19 08:50 Pulse 77 12/05/19 08:50 Resp 22 H 12/05/19 08:50 BP 105/63 12/05/19 08:51 Pulse Ox 97 12/05/19 08:50 Weight - Most Recent: 193 lb I&O - Last 24 Hours: Intake & Output 12/04/19 12/05/19 12/05/19 22:59 06:59 14:59 Intake Total 660 240 320 Output Total 300 300 Balance 360 -60 320 Lab Results Last 24 Hours: Laboratory Results - last 24 hr 12/04/19 12/05/19 Range/Units 05:31 07:20 Sodium 153 H (136-145) mEq/L Potassium 4.5 (3.5-5.1) mEq/L Chloride 113 H (98-107) mEq/L Carbon Dioxide 30 (21-32) mEq/L Anion Gap 14.5 (5-15) BUN 25 H (7-18) mg/dL Creatinine 1.7 H (0.7-1.3) mg/dL Est Cr Clr Drug Dosing 36.82 mL/min Estimated GFR (MDRD) 39 (>60) mL/min BUN/Creatinine Ratio 14.7 (14-18) Glucose 96 (83-115) mg/dL Calcium 9.4 (8.5-10.1) mg/dL Total Bilirubin 0.3 (0.2-1.0) mg/dL AST 26 (15-37) U/L ALT 27 (16-63) U/L Alkaline Phosphatase 103 (46-116) U/L Total Protein 7.9 (6.4-8.2) g/dl Albumin 3.0 L (3.4-5.0) g/dl Globulin 4.9 gm/dL Albumin/Globulin Ratio 0.6 L (1-2) Procalcitonin 0.21 H (<0.10) ng/mL Med Orders - Current: Current Medications Albuterol (Proventil Neb Soln) 2.5 mg NEB Q2H PRN PRN Reason: Dyspnea Last Admin: 12/04/19 08:53 Dose: 2.5 mg Allopurinol (Zyloprim) 100 mg PO DAILY [facility] Last Admin: 12/05/19 09:06 Dose: 100 mg Budesonide (Pulmicort) 0.5 mg NEB BIDRT [facility] Last Admin: 12/05/19 06:39 Dose: 0.5 mg Donepezil HCl (Aricept) 5 mg PO DAILY [facility] Last Admin: 12/05/19 08:58 Dose: 5 mg Ezetimibe (Zetia) 10 mg PO DAILY [facility] Last Admin: 12/05/19 09:04 Dose: 10 mg Flecainide Acetate (Tambocor) 200 mg PO BID [facility] Last Admin: 12/05/19 09:02 Dose: 200 mg Furosemide (Lasix) 20 mg PO DAILY [facility] Last Admin: 12/05/19 09:03 Dose: 20 mg Guaifenesin (Mucinex) 600 mg PO BID [facility] Last Admin: 12/05/19 09:06 Dose: 600 mg Dextrose/Water (Dextrose 5% In Water) 1,000 mls @ 75 mls/hr IV ASDIRECTED [facility] Last Admin: 12/05/19 09:12 Dose: 75 mls/hr Linezolid (Zyvox) 600 mg PO BID [facility] Last Admin: 12/05/19 09:05 Dose: 600 mg Magnesium Oxide (Magnesium Oxide) 400 mg PO DAILY [facility] Last Admin: 12/05/19 09:03 Dose: 400 mg Nystatin (Nystatin Oral Syringe) 500,000 unit PO QID [facility] Stop: 12/15/19 13:01 Ondansetron HCl (Zofran) 4 mg IVPUSH Q4H PRN PRN Reason: Nausea/Vomiting Last Admin: 11/25/19 22:09 Dose: 4 mg Potassium Chloride (Klor-Con M20) 40 meq PO DAILY [facility] Last Admin: 12/05/19 08:59 Dose: 40 meq Simvastatin (Zocor) 20 mg PO BEDTIME [facility] Last Admin: 12/04/19 20:42 Dose: 20 mg Sodium Chloride (Saline Flush) 10 ml FLUSH ASDIRECTED PRN PRN Reason: Keep Vein Open Last Admin: 11/25/19 15:58 Dose: 10 ml Tamsulosin HCl (Flomax) 0.4 mg PO DAILY [facility] Last Admin: 12/05/19 09:07 Dose: 0.4 mg Discontinued Medications Acetylcysteine (Mucomyst 20%) 800 mg NEB QIDRT [facility] Last Admin: 11/29/19 05:49 Dose: 800 mg Albuterol/Ipratropium (Duoneb 3.0-0.5 Mg/3 Ml) 3 ml NEB ONETIME ONE Stop: 11/25/19 15:22 Last Admin: 11/25/19 15:43 Dose: 3 ml Albuterol/Ipratropium (Duoneb 3.0-0.5 Mg/3 Ml) 3 ml NEB Q6HRRT [facility] Albuterol/Ipratropium (Duoneb 3.0-0.5 Mg/3 Ml) 3 ml NEB Q6HRRT [facility] Last Admin: 11/27/19 09:57 Dose: 3 ml Apixaban (Eliquis) 2.5 mg PO BID [facility] Last Admin: 11/25/19 20:10 Dose: 2.5 mg Diltiazem HCl (Cardizem) 20 mg IVPUSH ONETIME ONE Stop: 11/27/19 14:53 Last Admin: 11/27/19 15:06 Dose: 20 mg Diltiazem HCl (Cardizem) 30 mg IVPUSH ONETIME ONE Stop: 11/27/19 18:35 Last Admin: 11/27/19 18:46 Dose: 30 mg Diltiazem HCl (Cardizem Cd) 120 mg PO DAILY [facility] Last Admin: 11/28/19 08:06 Dose: 120 mg Flecainide Acetate (Tambocor) 100 mg PO BID [facility] Last Admin: 11/27/19 08:43 Dose: 100 mg Flecainide Acetate (Tambocor) 150 mg PO BID [facility] Last Admin: 11/28/19 20:56 Dose: 150 mg Furosemide (Lasix) 40 mg IVPUSH NOW ONE Stop: 11/26/19 17:01 Last Admin: 11/26/19 17:41 Dose: 40 mg Piperacillin Sod/Tazobactam (Sod 4.5 gm/ Sodium Chloride) 100 mls @ 200 mls/hr IV ONETIME ONE Stop: 11/25/19 16:28 Last Admin: 11/25/19 16:08 Dose: Not Given Piperacillin Sod/Tazobactam (Sod 4.5 gm/ Sodium Chloride) 100 mls @ 200 mls/hr IV ONETIME ONE Stop: 11/25/19 16:35 Last Admin: 11/25/19 16:34 Dose: 200 mls/hr Ceftriaxone Sodium 2 gm/ (Sodium Chloride) 100 mls @ 200 mls/hr IV ONETIME ONE Stop: 11/25/19 16:38 Last Admin: 11/25/19 17:06 Dose: 200 mls/hr Piperacillin Sod/Tazobactam (Sod 4.5 gm/ Sodium Chloride) 100 mls @ 25 mls/hr IV Q8H [facility] Last Admin: 12/01/19 10:09 Dose: 25 mls/hr Sodium Chloride (Normal Saline) 1,000 mls @ 100 mls/hr IV ASDIRECTED [facility] Last Admin: 11/26/19 13:56 Dose: 100 mls/hr Lactated Ringer's (Ringers, Lactated) 500 mls @ 500 mls/hr IV .BOLUS ONE Stop: 11/25/19 21:57 Last Admin: 11/25/19 21:35 Dose: 999 mls/hr Pantoprazole Sodium 80 mg/ (Sodium Chloride) 100 mls @ 8 mls/hr IV Q10H [facility] Last Admin: 11/27/19 06:18 Dose: Not Given Sodium Chloride (Normal Saline) 500 mls @ 999 mls/hr IV .BOLUS ONE Stop: 11/26/19 12:05 Last Admin: 11/26/19 11:47 Dose: Not Given Doxycycline Hyclate 100 mg/ (Sodium Chloride) 100 mls @ 100 mls/hr IV Q12H [facility] Last Admin: 12/01/19 03:35 Dose: 100 mls/hr Sodium Chloride (Normal Saline) 1,000 mls @ 50 mls/hr IV ASDIRECTED [facility] Last Admin: 11/27/19 05:03 Dose: 50 mls/hr Pantoprazole Sodium 80 mg/ (Sodium Chloride) 100 mls @ 8 mls/hr IV Q10H [facility] Last Admin: 11/27/19 02:52 Dose: 8 mls/hr Lactated Ringer's (Ringers, Lactated) 1,000 mls @ 75 mls/hr IV ASDIRECTED [facility] Last Admin: 11/27/19 11:21 Dose: 75 mls/hr Lactated Ringer's (Ringers, Lactated) Confirm Administered Dose 1,000 mls @ as directed .ROUTE .STK-MED ONE Stop: 11/27/19 11:13 Last Admin: 11/27/19 11:23 Dose: Not Given Vancomycin HCl 1 gm/Vancomycin HCl 500 mg/ Sodium Chloride 500 mls @ 250 mls/ hr IV Q24H [facility] Linezolid 600 mg/ Premix 300 mls @ 300 mls/hr IV Q12H [facility] Last Admin: 12/01/19 01:37 Dose: 300 mls/hr Potassium Chloride 10 meq/ (Premix) 100 mls @ 100 mls/hr IV Q1H [facility] Stop: 11/30/19 19:29 Last Admin: 11/30/19 18:55 Dose: 100 mls/hr Sodium Chloride (Normal Saline) 500 mls @ 100 mls/hr IV ASDIRECTED [facility] Last Admin: 11/30/19 20:28 Dose: 100 mls/hr Magnesium Sulfate 4 gm/ Premix 100 mls @ 25 mls/hr IV ONETIME ONE Stop: 12/01/19 08:26 Last Admin: 12/01/19 08:08 Dose: 25 mls/hr Labetalol HCl (Normodyne) 5 mg IVPUSH ONETIME ONE; Protocol Stop: 11/27/19 11:36 Last Admin: 11/27/19 11:43 Dose: 5 mg Linezolid (Zyvox) 600 mg PO BID [facility] Last Admin: 12/02/19 08:57 Dose: 600 mg Metoprolol Tartrate (Lopressor) 5 mg IVPUSH ONETIME ONE Stop: 11/26/19 12:50 Last Admin: 11/26/19 13:32 Dose: 5 mg Metoprolol Tartrate (Lopressor) 5 mg IVPUSH ONETIME ONE Stop: 11/26/19 21:42 Last Admin: 11/26/19 22:03 Dose: 5 mg Ondansetron HCl (Zofran) Confirm Administered Dose 4 mg .ROUTE .STK-MED ONE Stop: 11/25/19 21:57 Last Admin: 11/25/19 22:05 Dose: Not Given Pantoprazole Sodium (Protonix) 40 mg PO DAILY@0700 [facility] Pantoprazole Sodium (Protonix Iv) 80 mg IVPUSH BOLUS ONE Stop: 11/25/19 20:52 Last Admin: 11/25/19 21:21 Dose: 80 mg Pantoprazole Sodium (Protonix Iv) 40 mg IVPUSH BID [facility] Last Admin: 12/02/19 08:55 Dose: 40 mg Potassium Chloride (Klor-Con M20) 20 meq PO Q4H [facility] Stop: 11/30/19 22:31 Last Admin: 11/30/19 22:12 Dose: 20 meq Sodium Phosphate (Neutra-Phos) 250 mg PO ONETIME ONE Stop: 12/01/19 08:26 Last Admin: 12/01/19 08:09 Dose: 250 mg Trazodone HCl (Trazodone) 25 mg PO BEDTIME [facility] Last Admin: 11/28/19 20:58 Dose: 25 mg - Exam Quality Assessment: Supplemental Oxygen General: Alert, Oriented HEENT: Pupils Equal, Other (Tongue is beefy red with cottage cheese like substance on his posterior pharynx) Neck: Supple Lungs: Clear to Auscultation, Normal Respiratory Effort Cardiovascular: Regular Rate, Regular Rhythm GI/Abdominal Exam: Normal Bowel Sounds, Soft, Non-Tender, No Organomegaly, No Distention, No Abnormal Bruit, No Mass, Pelvis Stable Back Exam: Normal Inspection, Full Range of Motion Extremities: Normal Inspection, Normal Range of Motion, Non-Tender, No Pedal Edema, Normal Capillary Refill Psy/Mental Status: Alert, Normal Affect, Normal Mood Sepsis Event Note - Evaluation Sepsis Screening Result: No Definite Risk - Focused Exam Vital Signs: Vital Signs Temp Pulse Resp BP Pulse Ox Pulse Ox 12/05/19 08:51 105/63 12/05/19 08:50 97.9 F 77 22 H 125/94 H 97 12/05/19 06:39 95 12/05/19 03:30 97.7 F 73 22 H 107/62 96 Date Exam was Performed: 12/05/19 Time Exam was Performed: 12:45 - Problem List Review Problem List Initiated/Reviewed/Updated: Yes - My Orders Last 24 Hours: My Active Orders 12/05/19 06:45 Dextrose 5% in Water 1,000 ml IV ASDIRECTED 12/05/19 13:00 Nystatin [Nystatin Oral Syringe] 500,000 unit PO QID 12/06/19 05:11 BASIC METABOLIC PANEL,BMP [CHEM] AM 12/07/19 05:11 BASIC METABOLIC PANEL,BMP [CHEM] AM 12/08/19 05:11 BASIC METABOLIC PANEL,BMP [CHEM] AM 12/09/19 05:11 BASIC METABOLIC PANEL,BMP [CHEM] AM - Plan Plan:: 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, klebsiella and MRSA Acute on chronic hypoxemic respiratory failure Unspecified pulmonary fibrosis Dysphagia, oropharyngeal Oral thrush Worsening shortness of breath --> CXR on admission with BL infiltrates--> Zosyn and Rocephin in ED--> transitioned to Doxycycline and Zosyn WBC on admission 23--> baseline now Sputum 07/2019 + MRSA--> now 11/26--> + MRSA / Klebsiella / VRE faecium as well as alirio Completed 5 days of doxycycline and 6 days of Zosyn Speech therapy evaluated and still recommending nectar thickened liquids Tmax 98.2 Procalcitonin 0.21 on 12/04 demonstrated decreased risk for progression to serious illness PLAN - Continue Linezolid day 7 to complete 10 days due to higher risk of reinfection - Continue CPT - Continue scheduled DuoNeb, Pulmicort and Mucinex - Incentive spirometry - Hold trazodone as long as he is on Linezolid - Monitor bone marrow suppression due to linezolid use - Keep patient on 2L NC - Start nystatin 4 times daily Atrial fibrillation and flutter, rate controlled Resolved RVR HR trend [id number]' Transferred to ICU 11/27 for Diltiazem drip --> rate controlled with bolus diltiazem and increase in home flecainide dose--> out of ICU As long as he stays on O2 supplementation at 2L his HR is controlled PLAN - Monitor VS - Max dose Flecainide 200 mg BID - Keep O2 supplementation at 2L Upper GI bleed Hb stable No melena or hematochezia PLAN - Continue Protonix -Monitor CBC Chronic kidney disease (CKD), stage III (moderate) Acute kidney injury Volume depletion Hypernatremia Volume depleted on admission 2/2 GI losses (vomiting) Currently patient appears to be volume depleted with his hypernatremia secondary to poor oral intake. Baseline GFR was improving steadily until today at 39. PLAN - Monitory urine output - Renally dosed medications - Start-D5 water at 75 mL/h -Encourage increasing fluid intake. Allow access to free water between meals. -Encourage good oral hygiene - Recheck BMP in the morning Hypertension BP trend 103-143/66-87 PLAN - Continue home medications PROPHYLAXIS DVT- SCD's due to bleed GI- Protonix CODE STATUS: DNR/DNI DISPOSITION: Patient will remain admitted on oral antibiotics, comes from home with , PT evaluation recommending SNF placement. [facility] had accepted patient initially for meterman placement however now they are requesting that patient be made comfort measures aka given a life expectancy than 6 months. Patient requiring hospitalization greater than 96 days due to suboptimal treatment response.
[2019-12-05] MEDS: Nystatin Susp 100,000 Unit/ML 5 ML Oral Syringe PO SCH ×3 (13:38→20:29)
[2019-12-05] MEDS: Simvastatin 20 MG Tab PO SCH (20:27)
[2019-12-06] MEDS: Budesonide 0.5 MG/2 ML Neb Susp NEB SCH ×2 (06:06→20:16)
--- NOTE | 2019-12-06 08:08 | PCM.PN ---
- General Info Date of Service: 12/06/19 Admission Dx/Problem (Free Text): Admission Diagnosis/Problem Admission Diagnosis/Problem Aspiration pneumonia Subjective Update: Patient is generally doing well. His mouth is less tender and he states he is able to eat except things like citrus. He does continue to have a productive cough, but apparently this is not new and is a chronic occurrence. Functional Status: Reports: Pain Controlled - Review of Systems General: Reports: No Symptoms HEENT: Reports: No Symptoms Pulmonary: Reports: Cough, Sputum Cardiovascular: Reports: No Symptoms Gastrointestinal: Reports: No Symptoms Musculoskeletal: Reports: No Symptoms Psychiatric: Reports: No Symptoms - Patient Data Vitals - Most Recent: Last Vital Signs Temp 97.9 F 12/06/19 06:49 Pulse 62 12/06/19 06:49 Resp 24 H 12/06/19 06:49 BP 119/49 L 12/06/19 06:49 Pulse Ox 97 12/06/19 06:49 Weight - Most Recent: 193 lb I&O - Last 24 Hours: Intake & Output 12/05/19 12/06/19 12/06/19 22:59 06:59 14:59 Intake Total 838 1100 Output Total 350 375 Balance 488 725 Lab Results Last 24 Hours: Laboratory Results - last 24 hr 12/05/19 12/06/19 Range/Units 07:20 05:20 Sodium 153 H 145 (136-145) mEq/L Potassium 4.5 4.2 (3.5-5.1) mEq/L Chloride 113 H 107 (98-107) mEq/L Carbon Dioxide 30 29 (21-32) mEq/L Anion Gap 14.5 13.2 (5-15) BUN 25 H 26 H (7-18) mg/dL Creatinine 1.7 H 1.8 H (0.7-1.3) mg/dL Est Cr Clr Drug Dosing 36.82 34.78 mL/min Estimated GFR (MDRD) 39 36 (>60) mL/min BUN/Creatinine Ratio 14.7 14.4 (14-18) Glucose 96 97 (83-115) mg/dL Calcium 9.4 8.6 (8.5-10.1) mg/dL Total Bilirubin 0.3 (0.2-1.0) mg/dL AST 26 (15-37) U/L ALT 27 (16-63) U/L Alkaline Phosphatase 103 (46-116) U/L Total Protein 7.9 (6.4-8.2) g/dl Albumin 3.0 L (3.4-5.0) g/dl Globulin 4.9 gm/dL Albumin/Globulin Ratio 0.6 L (1-2) Med Orders - Current: Current Medications Albuterol (Proventil Neb Soln) 2.5 mg NEB Q2H PRN PRN Reason: Dyspnea Last Admin: 12/04/19 08:53 Dose: 2.5 mg Allopurinol (Zyloprim) 100 mg PO DAILY [facility] Last Admin: 12/05/19 09:06 Dose: 100 mg Budesonide (Pulmicort) 0.5 mg NEB BIDRT [facility] Last Admin: 12/06/19 06:06 Dose: 0.5 mg Donepezil HCl (Aricept) 5 mg PO DAILY [facility] Last Admin: 12/05/19 08:58 Dose: 5 mg Ezetimibe (Zetia) 10 mg PO DAILY [facility] Last Admin: 12/05/19 09:04 Dose: 10 mg Flecainide Acetate (Tambocor) 150 mg PO BID [facility] Furosemide (Lasix) 20 mg PO DAILY [facility] Last Admin: 12/05/19 09:03 Dose: 20 mg Guaifenesin (Mucinex) 600 mg PO BID [facility] Last Admin: 12/05/19 20:25 Dose: 600 mg Linezolid (Zyvox) 600 mg PO BID [facility] Last Admin: 12/05/19 20:26 Dose: 600 mg Magnesium Oxide (Magnesium Oxide) 400 mg PO DAILY [facility] Last Admin: 12/05/19 09:03 Dose: 400 mg Nystatin (Nystatin Oral Syringe) 500,000 unit PO QID [facility] Stop: 12/15/19 13:01 Last Admin: 12/05/19 20:29 Dose: 500,000 unit Ondansetron HCl (Zofran) 4 mg IVPUSH Q4H PRN PRN Reason: Nausea/Vomiting Last Admin: 11/25/19 22:09 Dose: 4 mg Potassium Chloride (Klor-Con M20) 40 meq PO DAILY [facility] Last Admin: 12/05/19 08:59 Dose: 40 meq Simvastatin (Zocor) 20 mg PO BEDTIME [facility] Last Admin: 12/05/19 20:27 Dose: 20 mg Sodium Chloride (Saline Flush) 10 ml FLUSH ASDIRECTED PRN PRN Reason: Keep Vein Open Last Admin: 11/25/19 15:58 Dose: 10 ml Tamsulosin HCl (Flomax) 0.4 mg PO DAILY [facility] Last Admin: 12/05/19 09:07 Dose: 0.4 mg Discontinued Medications Acetylcysteine (Mucomyst 20%) 800 mg NEB QIDRT [facility] Last Admin: 11/29/19 05:49 Dose: 800 mg Albuterol/Ipratropium (Duoneb 3.0-0.5 Mg/3 Ml) 3 ml NEB ONETIME ONE Stop: 11/25/19 15:22 Last Admin: 11/25/19 15:43 Dose: 3 ml Albuterol/Ipratropium (Duoneb 3.0-0.5 Mg/3 Ml) 3 ml NEB Q6HRRT [facility] Albuterol/Ipratropium (Duoneb 3.0-0.5 Mg/3 Ml) 3 ml NEB Q6HRRT [facility] Last Admin: 11/27/19 09:57 Dose: 3 ml Apixaban (Eliquis) 2.5 mg PO BID [facility] Last Admin: 11/25/19 20:10 Dose: 2.5 mg Diltiazem HCl (Cardizem) 20 mg IVPUSH ONETIME ONE Stop: 11/27/19 14:53 Last Admin: 11/27/19 15:06 Dose: 20 mg Diltiazem HCl (Cardizem) 30 mg IVPUSH ONETIME ONE Stop: 11/27/19 18:35 Last Admin: 11/27/19 18:46 Dose: 30 mg Diltiazem HCl (Cardizem Cd) 120 mg PO DAILY [facility] Last Admin: 11/28/19 08:06 Dose: 120 mg Flecainide Acetate (Tambocor) 100 mg PO BID [facility] Last Admin: 11/27/19 08:43 Dose: 100 mg Flecainide Acetate (Tambocor) 150 mg PO BID [facility] Last Admin: 11/28/19 20:56 Dose: 150 mg Flecainide Acetate (Tambocor) 200 mg PO BID [facility] Last Admin: 12/05/19 20:27 Dose: 200 mg Furosemide (Lasix) 40 mg IVPUSH NOW ONE Stop: 11/26/19 17:01 Last Admin: 11/26/19 17:41 Dose: 40 mg Piperacillin Sod/Tazobactam (Sod 4.5 gm/ Sodium Chloride) 100 mls @ 200 mls/hr IV ONETIME ONE Stop: 11/25/19 16:28 Last Admin: 11/25/19 16:08 Dose: Not Given Piperacillin Sod/Tazobactam (Sod 4.5 gm/ Sodium Chloride) 100 mls @ 200 mls/hr IV ONETIME ONE Stop: 11/25/19 16:35 Last Admin: 11/25/19 16:34 Dose: 200 mls/hr Ceftriaxone Sodium 2 gm/ (Sodium Chloride) 100 mls @ 200 mls/hr IV ONETIME ONE Stop: 11/25/19 16:38 Last Admin: 11/25/19 17:06 Dose: 200 mls/hr Piperacillin Sod/Tazobactam (Sod 4.5 gm/ Sodium Chloride) 100 mls @ 25 mls/hr IV Q8H [facility] Last Admin: 12/01/19 10:09 Dose: 25 mls/hr Sodium Chloride (Normal Saline) 1,000 mls @ 100 mls/hr IV ASDIRECTED [facility] Last Admin: 11/26/19 13:56 Dose: 100 mls/hr Lactated Ringer's (Ringers, Lactated) 500 mls @ 500 mls/hr IV .BOLUS ONE Stop: 11/25/19 21:57 Last Admin: 11/25/19 21:35 Dose: 999 mls/hr Pantoprazole Sodium 80 mg/ (Sodium Chloride) 100 mls @ 8 mls/hr IV Q10H [facility] Last Admin: 11/27/19 06:18 Dose: Not Given Sodium Chloride (Normal Saline) 500 mls @ 999 mls/hr IV .BOLUS ONE Stop: 11/26/19 12:05 Last Admin: 11/26/19 11:47 Dose: Not Given Doxycycline Hyclate 100 mg/ (Sodium Chloride) 100 mls @ 100 mls/hr IV Q12H [facility] Last Admin: 12/01/19 03:35 Dose: 100 mls/hr Sodium Chloride (Normal Saline) 1,000 mls @ 50 mls/hr IV ASDIRECTED [facility] Last Admin: 11/27/19 05:03 Dose: 50 mls/hr Pantoprazole Sodium 80 mg/ (Sodium Chloride) 100 mls @ 8 mls/hr IV Q10H [facility] Last Admin: 11/27/19 02:52 Dose: 8 mls/hr Lactated Ringer's (Ringers, Lactated) 1,000 mls @ 75 mls/hr IV ASDIRECTED [facility] Last Admin: 11/27/19 11:21 Dose: 75 mls/hr Lactated Ringer's (Ringers, Lactated) Confirm Administered Dose 1,000 mls @ as directed .ROUTE .STK-MED ONE Stop: 11/27/19 11:13 Last Admin: 11/27/19 11:23 Dose: Not Given Vancomycin HCl 1 gm/Vancomycin HCl 500 mg/ Sodium Chloride 500 mls @ 250 mls/ hr IV Q24H [facility] Linezolid 600 mg/ Premix 300 mls @ 300 mls/hr IV Q12H [facility] Last Admin: 12/01/19 01:37 Dose: 300 mls/hr Potassium Chloride 10 meq/ (Premix) 100 mls @ 100 mls/hr IV Q1H [facility] Stop: 11/30/19 19:29 Last Admin: 11/30/19 18:55 Dose: 100 mls/hr Sodium Chloride (Normal Saline) 500 mls @ 100 mls/hr IV ASDIRECTED [facility] Last Admin: 11/30/19 20:28 Dose: 100 mls/hr Magnesium Sulfate 4 gm/ Premix 100 mls @ 25 mls/hr IV ONETIME ONE Stop: 12/01/19 08:26 Last Admin: 12/01/19 08:08 Dose: 25 mls/hr Dextrose/Water (Dextrose 5% In Water) 1,000 mls @ 75 mls/hr IV ASDIRECTED [facility] Last Admin: 12/05/19 23:05 Dose: 75 mls/hr Labetalol HCl (Normodyne) 5 mg IVPUSH ONETIME ONE; Protocol Stop: 11/27/19 11:36 Last Admin: 11/27/19 11:43 Dose: 5 mg Linezolid (Zyvox) 600 mg PO BID [facility] Last Admin: 12/02/19 08:57 Dose: 600 mg Metoprolol Tartrate (Lopressor) 5 mg IVPUSH ONETIME ONE Stop: 11/26/19 12:50 Last Admin: 11/26/19 13:32 Dose: 5 mg Metoprolol Tartrate (Lopressor) 5 mg IVPUSH ONETIME ONE Stop: 11/26/19 21:42 Last Admin: 11/26/19 22:03 Dose: 5 mg Ondansetron HCl (Zofran) Confirm Administered Dose 4 mg .ROUTE .STK-MED ONE Stop: 11/25/19 21:57 Last Admin: 11/25/19 22:05 Dose: Not Given Pantoprazole Sodium (Protonix) 40 mg PO DAILY@0700 [facility] Pantoprazole Sodium (Protonix Iv) 80 mg IVPUSH BOLUS ONE Stop: 11/25/19 20:52 Last Admin: 11/25/19 21:21 Dose: 80 mg Pantoprazole Sodium (Protonix Iv) 40 mg IVPUSH BID [facility] Last Admin: 12/02/19 08:55 Dose: 40 mg Potassium Chloride (Klor-Con M20) 20 meq PO Q4H [facility] Stop: 11/30/19 22:31 Last Admin: 11/30/19 22:12 Dose: 20 meq Sodium Phosphate (Neutra-Phos) 250 mg PO ONETIME ONE Stop: 12/01/19 08:26 Last Admin: 12/01/19 08:09 Dose: 250 mg Trazodone HCl (Trazodone) 25 mg PO BEDTIME [facility] Last Admin: 11/28/19 20:58 Dose: 25 mg - Exam Quality Assessment: Supplemental Oxygen General: Alert, Oriented HEENT: Pupils Equal, Pupils Reactive, EOMI, Mucous Membr. Moist/[place] Neck: Supple Lungs: Normal Respiratory Effort, Rales (Bibasilar) Cardiovascular: Regular Rate, Regular Rhythm GI/Abdominal Exam: Normal Bowel Sounds, Soft, Non-Tender, No Distention Extremities: Normal Inspection Skin: Warm, Dry, Intact Psy/Mental Status: Alert, Normal Affect, Normal Mood Sepsis Event Note - Evaluation Sepsis Screening Result: No Definite Risk - Focused Exam Vital Signs: Vital Signs Temp Pulse Resp BP Pulse Ox Pulse Ox 12/06/19 06:49 97.9 F 62 24 H 119/49 L 97 12/06/19 06:06 100 12/05/19 22:14 97 12/05/19 20:18 98.1 F 72 28 H 117/79 98 Date Exam was Performed: 12/06/19 Time Exam was Performed: 11:57 - Problem List Review Problem List Initiated/Reviewed/Updated: Yes - My Orders Last 24 Hours: My Active Orders 12/05/19 13:00 Nystatin [Nystatin Oral Syringe] 500,000 unit PO QID 12/06/19 09:00 Flecainide [Tambocor] 150 mg PO BID 12/07/19 05:11 BASIC METABOLIC PANEL,BMP [CHEM] AM CBC WITH AUTO DIFF [HEME] AM 12/08/19 05:11 BASIC METABOLIC PANEL,BMP [CHEM] AM 12/09/19 05:11 BASIC METABOLIC PANEL,BMP [CHEM] AM - Plan Plan:: Aspiration pneumonia 11/10 VRE, klebsiella and MRSA Acute on chronic hypoxemic respiratory failure -improved Unspecified pulmonary fibrosis Dysphagia, oropharyngeal Oral thrush -improved Worsening shortness of breath --> CXR on admission with BL infiltrates--> Zosyn and Rocephin in ED--> transitioned to Doxycycline and Zosyn WBC on admission 23--> baseline now Sputum 07/2019 + MRSA--> now 11/26--> + MRSA / Klebsiella / VRE faecium as well as alirio Completed 5 days of doxycycline and 6 days of Zosyn Speech therapy evaluated and still recommending nectar thickened liquids with meals but allowing free water between meals Afebrile Procalcitonin 0.21 on 12/04 demonstrated decreased risk for progression to serious illness PLAN - Continue Linezolid day 8 to complete 10 days due to higher risk of reinfection - Continue CPT - Continue scheduled DuoNeb, Pulmicort and Mucinex - Incentive spirometry - Hold trazodone as long as he is on Linezolid - Monitor bone marrow suppression due to linezolid use - Keep patient on 2L NC - Start nystatin 4 times daily Atrial fibrillation and flutter, rate controlled Resolved RVR HR 60s' Transferred to ICU 11/27 for Diltiazem drip --> rate controlled with bolus diltiazem and increase in home flecainide dose--> out of ICU As long as he stays on O2 supplementation at 2L his HR is controlled PLAN - Monitor VS -Decrease Flecainide to 150 mg mg BID. Max dose for PAF is 150 mg twice daily, so if possible would like to keep on 300 mg daily - Keep O2 supplementation at 2L Upper GI bleed Hb stable No melena or hematochezia PLAN - Continue Protonix -Recheck CBC tomorrow Chronic kidney disease (CKD), stage III (moderate) Acute kidney injury Volume depletion Hypernatremia Volume depleted on admission 2/2 GI losses (vomiting) Currently euvolemic, but slight decrease in GFR Sodium down from 152 to 145 today PLAN - Monitory urine output - Renally dosed medications - D/C D5 water at 75 mL/h -Encourage increasing fluid intake. Allow access to free water between meals. -Encourage good oral hygiene - Recheck BMP in the morning Hypertension BP trend 103-143/66-87 PLAN - Continue home medications PROPHYLAXIS DVT- SCD's due to bleed GI- Protonix CODE STATUS: DNR/DNI DISPOSITION: Patient will remain admitted on oral antibiotics for a total of 10 days, comes from home with , PT evaluation recommending SNF placement. [facility] had accepted patient initially for long-term placement with anticipated transfer on December 08. Patient requiring hospitalization greater than 96 days due to suboptimal treatment response.
[2019-12-06] MEDS: Magnesium Oxide 400 MG Tab PO SCH (09:23)
[2019-12-06] MEDS: Flecainide 50 MG Tab PO SCH ×2 (09:23→20:29)
[2019-12-06] MEDS: Nystatin Susp 100,000 Unit/ML 5 ML Oral Syringe PO SCH ×4 (09:23→20:29)
[2019-12-06] MEDS: Allopurinol 100 MG Tab PO SCH (09:24)
[2019-12-06] MEDS: Linezolid 600 MG Tab PO SCH ×2 (09:24→20:29)
[2019-12-06] MEDS: Ezetimibe 10 MG Tab PO SCH (09:25)
[2019-12-06] MEDS: guaiFENesin 600 MG Tab.ER PO SCH ×2 (09:25→20:29)
[2019-12-06] MEDS: Donepezil 10 MG Tab PO SCH (09:25)
[2019-12-06] MEDS: Tamsulosin 0.4 MG Cap.ER PO SCH (09:25)
[2019-12-06] MEDS: Furosemide 20 MG Tab PO SCH (09:27)
[2019-12-06] MEDS: Potassium Chloride 20 MEQ Tab.ER PO SCH (09:27)
[2019-12-06] MEDS: Simvastatin 20 MG Tab PO SCH (20:30)
[2019-12-07] MEDS: Budesonide 0.5 MG/2 ML Neb Susp NEB SCH ×2 (06:19→20:27)
[2019-12-07] MEDS: Linezolid 600 MG Tab PO SCH ×2 (09:02→21:20)
[2019-12-07] MEDS: Tamsulosin 0.4 MG Cap.ER PO SCH (09:02)
[2019-12-07] MEDS: Donepezil 10 MG Tab PO SCH (09:03)
[2019-12-07] MEDS: Allopurinol 100 MG Tab PO SCH (09:03)
[2019-12-07] MEDS: Ezetimibe 10 MG Tab PO SCH (09:04)
[2019-12-07] MEDS: Furosemide 20 MG Tab PO SCH (09:04)
[2019-12-07] MEDS: guaiFENesin 600 MG Tab.ER PO SCH ×2 (09:04→21:21)
[2019-12-07] MEDS: Flecainide 50 MG Tab PO SCH ×2 (09:05→21:20)
[2019-12-07] MEDS: Magnesium Oxide 400 MG Tab PO SCH (09:05)
[2019-12-07] MEDS: Potassium Chloride 20 MEQ Tab.ER PO SCH (09:05)
[2019-12-07] MEDS: Nystatin Susp 100,000 Unit/ML 5 ML Oral Syringe PO SCH ×4 (09:06→21:21)
--- NOTE | 2019-12-07 14:17 | PCM.PN ---
- General Info Date of Service: 12/07/19 Admission Dx/Problem (Free Text): Admission Diagnosis/Problem Admission Diagnosis/Problem Aspiration pneumonia Subjective Update: Patient is doing well without any complaints. Resting comfortably, good appetite. Taking good oral intake with the freedom of drinking free water between meals. Mouth pain continues to improve from his oral thrush. Functional Status: Reports: Pain Controlled - Review of Systems General: Reports: No Symptoms HEENT: Reports: No Symptoms Pulmonary: Reports: No Symptoms Cardiovascular: Reports: No Symptoms Gastrointestinal: Reports: No Symptoms Musculoskeletal: Reports: No Symptoms - Patient Data Vitals - Most Recent: Last Vital Signs Temp 98.1 F 12/07/19 09:06 Pulse 62 12/07/19 09:06 Resp 18 12/07/19 09:06 BP 107/44 L 12/07/19 09:06 Pulse Ox 100 12/07/19 09:06 Weight - Most Recent: 191 lb 9.6 oz I&O - Last 24 Hours: Intake & Output 12/06/19 12/07/19 12/07/19 22:59 06:59 14:59 Intake Total 900 400 540 Output Total 100 400 Balance 800 0 540 Lab Results Last 24 Hours: Laboratory Results - last 24 hr 12/07/19 12/07/19 Range/Units 06:16 06:16 WBC 9.30 H (4.23-9.07) K/mm3 RBC 3.69 L (4.63-6.08) M/mm3 Hgb 10.1 L (13.7-17.5) gm/dl Hct 33.8 L (40.1-51.0) % MCV 91.6 D (79.0-92.2) fl MCH 27.4 (25.7-32.2) pg MCHC 29.9 L (32.2-35.5) g/dl RDW Std Deviation 53.8 H (35.1-43.9) fL Plt Count 248 (163-337) K/mm3 MPV 9.2 L (9.4-12.3) fl Neut % (Auto) 75.6 H (34.0-67.9) % Lymph % (Auto) 16.3 L (21.8-53.1) % [place] % (Auto) 6.3 (5.3-12.2) % Eos % (Auto) 1.0 (0.8-7.0) Baso % (Auto) 0.2 (0.1-1.2) % Neut # (Auto) 7.02 H (1.78-5.38) K/mm3 Lymph # (Auto) 1.52 (1.32-3.57) K/mm3 [place] # (Auto) 0.59 (0.30-0.82) K/mm3 Eos # (Auto) 0.09 (0.04-0.54) K/mm3 Baso # (Auto) 0.02 (0.01-0.08) K/mm3 Manual Slide Review Abnormal smear Sodium 143 (136-145) mEq/L Potassium 4.7 (3.5-5.1) mEq/L Chloride 106 (98-107) mEq/L Carbon Dioxide 29 (21-32) mEq/L Anion Gap 12.7 (5-15) BUN 23 H (7-18) mg/dL Creatinine 1.8 H (0.7-1.3) mg/dL Est Cr Clr Drug Dosing 34.78 mL/min Estimated GFR (MDRD) 36 (>60) mL/min BUN/Creatinine Ratio 12.8 L (14-18) Glucose 83 (83-115) mg/dL Calcium 8.5 (8.5-10.1) mg/dL Med Orders - Current: Current Medications Albuterol (Proventil Neb Soln) 2.5 mg NEB Q2H PRN PRN Reason: Dyspnea Last Admin: 12/04/19 08:53 Dose: 2.5 mg Allopurinol (Zyloprim) 100 mg PO DAILY [facility] Last Admin: 12/07/19 09:03 Dose: 100 mg Budesonide (Pulmicort) 0.5 mg NEB BIDRT [facility] Last Admin: 12/07/19 06:19 Dose: 0.5 mg Donepezil HCl (Aricept) 5 mg PO DAILY [facility] Last Admin: 12/07/19 09:03 Dose: 5 mg Ezetimibe (Zetia) 10 mg PO DAILY [facility] Last Admin: 12/07/19 09:04 Dose: 10 mg Flecainide Acetate (Tambocor) 150 mg PO BID [facility] Last Admin: 12/07/19 09:05 Dose: 150 mg Furosemide (Lasix) 20 mg PO DAILY [facility] Last Admin: 12/07/19 09:04 Dose: 20 mg Guaifenesin (Mucinex) 600 mg PO BID [facility] Last Admin: 12/07/19 09:04 Dose: 600 mg Linezolid (Zyvox) 600 mg PO BID [facility] Stop: 12/08/19 21:01 Last Admin: 12/07/19 09:02 Dose: 600 mg Magnesium Oxide (Magnesium Oxide) 400 mg PO DAILY [facility] Last Admin: 12/07/19 09:05 Dose: 400 mg Nystatin (Nystatin Oral Syringe) 500,000 unit PO QID [facility] Stop: 12/15/19 13:01 Last Admin: 12/07/19 14:00 Dose: 500,000 unit Ondansetron HCl (Zofran) 4 mg IVPUSH Q4H PRN PRN Reason: Nausea/Vomiting Last Admin: 11/25/19 22:09 Dose: 4 mg Potassium Chloride (Klor-Con M20) 40 meq PO DAILY [facility] Last Admin: 12/07/19 09:05 Dose: 40 meq Simvastatin (Zocor) 20 mg PO BEDTIME [facility] Last Admin: 12/06/19 20:30 Dose: 20 mg Sodium Chloride (Saline Flush) 10 ml FLUSH ASDIRECTED PRN PRN Reason: Keep Vein Open Last Admin: 11/25/19 15:58 Dose: 10 ml Tamsulosin HCl (Flomax) 0.4 mg PO DAILY [facility] Last Admin: 12/07/19 09:02 Dose: 0.4 mg Discontinued Medications Acetylcysteine (Mucomyst 20%) 800 mg NEB QIDRT [facility] Last Admin: 11/29/19 05:49 Dose: 800 mg Albuterol/Ipratropium (Duoneb 3.0-0.5 Mg/3 Ml) 3 ml NEB ONETIME ONE Stop: 11/25/19 15:22 Last Admin: 11/25/19 15:43 Dose: 3 ml Albuterol/Ipratropium (Duoneb 3.0-0.5 Mg/3 Ml) 3 ml NEB Q6HRRT [facility] Albuterol/Ipratropium (Duoneb 3.0-0.5 Mg/3 Ml) 3 ml NEB Q6HRRT [facility] Last Admin: 11/27/19 09:57 Dose: 3 ml Apixaban (Eliquis) 2.5 mg PO BID [facility] Last Admin: 11/25/19 20:10 Dose: 2.5 mg Diltiazem HCl (Cardizem) 20 mg IVPUSH ONETIME ONE Stop: 11/27/19 14:53 Last Admin: 11/27/19 15:06 Dose: 20 mg Diltiazem HCl (Cardizem) 30 mg IVPUSH ONETIME ONE Stop: 11/27/19 18:35 Last Admin: 11/27/19 18:46 Dose: 30 mg Diltiazem HCl (Cardizem Cd) 120 mg PO DAILY [facility] Last Admin: 11/28/19 08:06 Dose: 120 mg Flecainide Acetate (Tambocor) 100 mg PO BID [facility] Last Admin: 11/27/19 08:43 Dose: 100 mg Flecainide Acetate (Tambocor) 150 mg PO BID [facility] Last Admin: 11/28/19 20:56 Dose: 150 mg Flecainide Acetate (Tambocor) 200 mg PO BID [facility] Last Admin: 12/05/19 20:27 Dose: 200 mg Furosemide (Lasix) 40 mg IVPUSH NOW ONE Stop: 11/26/19 17:01 Last Admin: 11/26/19 17:41 Dose: 40 mg Piperacillin Sod/Tazobactam (Sod 4.5 gm/ Sodium Chloride) 100 mls @ 200 mls/hr IV ONETIME ONE Stop: 11/25/19 16:28 Last Admin: 11/25/19 16:08 Dose: Not Given Piperacillin Sod/Tazobactam (Sod 4.5 gm/ Sodium Chloride) 100 mls @ 200 mls/hr IV ONETIME ONE Stop: 11/25/19 16:35 Last Admin: 11/25/19 16:34 Dose: 200 mls/hr Ceftriaxone Sodium 2 gm/ (Sodium Chloride) 100 mls @ 200 mls/hr IV ONETIME ONE Stop: 11/25/19 16:38 Last Admin: 11/25/19 17:06 Dose: 200 mls/hr Piperacillin Sod/Tazobactam (Sod 4.5 gm/ Sodium Chloride) 100 mls @ 25 mls/hr IV Q8H [facility] Last Admin: 12/01/19 10:09 Dose: 25 mls/hr Sodium Chloride (Normal Saline) 1,000 mls @ 100 mls/hr IV ASDIRECTED [facility] Last Admin: 11/26/19 13:56 Dose: 100 mls/hr Lactated Ringer's (Ringers, Lactated) 500 mls @ 500 mls/hr IV .BOLUS ONE Stop: 11/25/19 21:57 Last Admin: 11/25/19 21:35 Dose: 999 mls/hr Pantoprazole Sodium 80 mg/ (Sodium Chloride) 100 mls @ 8 mls/hr IV Q10H [facility] Last Admin: 11/27/19 06:18 Dose: Not Given Sodium Chloride (Normal Saline) 500 mls @ 999 mls/hr IV .BOLUS ONE Stop: 11/26/19 12:05 Last Admin: 11/26/19 11:47 Dose: Not Given Doxycycline Hyclate 100 mg/ (Sodium Chloride) 100 mls @ 100 mls/hr IV Q12H [facility] Last Admin: 12/01/19 03:35 Dose: 100 mls/hr Sodium Chloride (Normal Saline) 1,000 mls @ 50 mls/hr IV ASDIRECTED [facility] Last Admin: 11/27/19 05:03 Dose: 50 mls/hr Pantoprazole Sodium 80 mg/ (Sodium Chloride) 100 mls @ 8 mls/hr IV Q10H [facility] Last Admin: 11/27/19 02:52 Dose: 8 mls/hr Lactated Ringer's (Ringers, Lactated) 1,000 mls @ 75 mls/hr IV ASDIRECTED [facility] Last Admin: 11/27/19 11:21 Dose: 75 mls/hr Lactated Ringer's (Ringers, Lactated) Confirm Administered Dose 1,000 mls @ as directed .ROUTE .STK-MED ONE Stop: 11/27/19 11:13 Last Admin: 11/27/19 11:23 Dose: Not Given Vancomycin HCl 1 gm/Vancomycin HCl 500 mg/ Sodium Chloride 500 mls @ 250 mls/ hr IV Q24H [facility] Linezolid 600 mg/ Premix 300 mls @ 300 mls/hr IV Q12H [facility] Last Admin: 12/01/19 01:37 Dose: 300 mls/hr Potassium Chloride 10 meq/ (Premix) 100 mls @ 100 mls/hr IV Q1H [facility] Stop: 11/30/19 19:29 Last Admin: 11/30/19 18:55 Dose: 100 mls/hr Sodium Chloride (Normal Saline) 500 mls @ 100 mls/hr IV ASDIRECTED [facility] Last Admin: 11/30/19 20:28 Dose: 100 mls/hr Magnesium Sulfate 4 gm/ Premix 100 mls @ 25 mls/hr IV ONETIME ONE Stop: 12/01/19 08:26 Last Admin: 12/01/19 08:08 Dose: 25 mls/hr Dextrose/Water (Dextrose 5% In Water) 1,000 mls @ 75 mls/hr IV ASDIRECTED [facility] Last Admin: 12/05/19 23:05 Dose: 75 mls/hr Labetalol HCl (Normodyne) 5 mg IVPUSH ONETIME ONE; Protocol Stop: 11/27/19 11:36 Last Admin: 11/27/19 11:43 Dose: 5 mg Linezolid (Zyvox) 600 mg PO BID [facility] Last Admin: 12/02/19 08:57 Dose: 600 mg Metoprolol Tartrate (Lopressor) 5 mg IVPUSH ONETIME ONE Stop: 11/26/19 12:50 Last Admin: 11/26/19 13:32 Dose: 5 mg Metoprolol Tartrate (Lopressor) 5 mg IVPUSH ONETIME ONE Stop: 11/26/19 21:42 Last Admin: 11/26/19 22:03 Dose: 5 mg Ondansetron HCl (Zofran) Confirm Administered Dose 4 mg .ROUTE .STK-MED ONE Stop: 11/25/19 21:57 Last Admin: 11/25/19 22:05 Dose: Not Given Pantoprazole Sodium (Protonix) 40 mg PO DAILY@0700 [facility] Pantoprazole Sodium (Protonix Iv) 80 mg IVPUSH BOLUS ONE Stop: 11/25/19 20:52 Last Admin: 11/25/19 21:21 Dose: 80 mg Pantoprazole Sodium (Protonix Iv) 40 mg IVPUSH BID [facility] Last Admin: 12/02/19 08:55 Dose: 40 mg Potassium Chloride (Klor-Con M20) 20 meq PO Q4H [facility] Stop: 11/30/19 22:31 Last Admin: 11/30/19 22:12 Dose: 20 meq Sodium Phosphate (Neutra-Phos) 250 mg PO ONETIME ONE Stop: 12/01/19 08:26 Last Admin: 12/01/19 08:09 Dose: 250 mg Trazodone HCl (Trazodone) 25 mg PO BEDTIME [facility] Last Admin: 11/28/19 20:58 Dose: 25 mg - Exam Quality Assessment: Supplemental Oxygen General: Alert, Oriented HEENT: Pupils Equal, Mucous Membr. Moist/[place] Neck: Supple Lungs: Clear to Auscultation, Normal Respiratory Effort Cardiovascular: Irregular Rhythm GI/Abdominal Exam: Normal Bowel Sounds, Soft, Non-Tender, No Distention Extremities: Normal Inspection, Normal Range of Motion, Non-Tender, No Pedal Edema Skin: Warm, Dry, Intact Psy/Mental Status: Alert, Normal Affect, Normal Mood Sepsis Event Note - Evaluation Sepsis Screening Result: No Definite Risk - Focused Exam Vital Signs: Vital Signs Temp Pulse Resp BP Pulse Ox Pulse Ox 12/07/19 09:06 98.1 F 62 18 107/44 L 100 12/07/19 06:21 94 L Date Exam was Performed: 12/07/19 Time Exam was Performed: 14:14 - Problem List Review Problem List Initiated/Reviewed/Updated: Yes - Plan Plan:: 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, klebsiella and MRSA Acute on chronic hypoxemic respiratory failure -improved Unspecified pulmonary fibrosis Dysphagia, oropharyngeal Oral thrush -improved Worsening shortness of breath --> CXR on admission with BL infiltrates--> Zosyn and Rocephin in ED--> transitioned to Doxycycline and Zosyn WBC on admission 23--> baseline now Sputum 07/2019 + MRSA--> now 11/26--> + MRSA / Klebsiella / VRE faecium as well as alirio Completed 5 days of doxycycline and 6 days of Zosyn Speech therapy evaluated and still recommending nectar thickened liquids with meals but allowing free water between meals Afebrile Procalcitonin 0.21 on 12/04 demonstrated decreased risk for progression to serious illness PLAN - Continue Linezolid day 9 to complete 10 days due to higher risk of reinfection - Continue CPT - Continue scheduled DuoNeb, Pulmicort and Mucinex - Incentive spirometry - Hold trazodone as long as he is on Linezolid - Monitor bone marrow suppression due to linezolid use - Keep patient on 2L NC - nystatin 4 times daily Atrial fibrillation and flutter, rate controlled Resolved RVR HR 60s' Transferred to ICU 11/27 for Diltiazem drip --> rate controlled with bolus diltiazem and increase in home flecainide dose--> out of ICU As long as he stays on O2 supplementation at 2L his HR is controlled PLAN - Monitor VS -Decrease Flecainide to 150 mg mg BID. Max dose for PAF is 150 mg twice daily, so if possible would like to keep on 300 mg daily - Keep O2 supplementation at 2L Upper GI bleed Hb stable No melena or hematochezia PLAN - Continue Protonix -Recheck CBC tomorrow Chronic kidney disease (CKD), stage III (moderate) Acute kidney injury Volume depletion Hypernatremia Volume depleted on admission 2/2 GI losses (vomiting) Currently euvolemic, but slight decrease in GFR Sodium down from 152 to 143 today PLAN - Monitory urine output - Renally dosed medications -Encourage increasing fluid intake. Allow access to free water between meals. -Encourage good oral hygiene Hypertension -controlled PLAN - Continue home medications PROPHYLAXIS DVT- SCD's due to bleed GI- Protonix CODE STATUS: DNR/DNI DISPOSITION: Plan discharge to [facility] on December 08.
[2019-12-07] MEDS: Simvastatin 20 MG Tab PO SCH (21:21)
[2019-12-08] MEDS: Budesonide 0.5 MG/2 ML Neb Susp NEB SCH ×2 (06:54→20:24)
[2019-12-08] MEDS: Tamsulosin 0.4 MG Cap.ER PO SCH (08:36)
[2019-12-08] MEDS: Magnesium Oxide 400 MG Tab PO SCH (08:36)
[2019-12-08] MEDS: Nystatin Susp 100,000 Unit/ML 5 ML Oral Syringe PO SCH ×4 (08:36→20:56)
[2019-12-08] MEDS: guaiFENesin 600 MG Tab.ER PO SCH ×2 (08:37→20:56)
[2019-12-08] MEDS: Potassium Chloride 20 MEQ Tab.ER PO SCH (08:37)
[2019-12-08] MEDS: Furosemide 20 MG Tab PO SCH (08:37)
[2019-12-08] MEDS: Donepezil 10 MG Tab PO SCH (08:38)
[2019-12-08] MEDS: Allopurinol 100 MG Tab PO SCH (08:38)
[2019-12-08] MEDS: Ezetimibe 10 MG Tab PO SCH (08:40)
[2019-12-08] MEDS: Linezolid 600 MG Tab PO SCH ×2 (08:41→20:56)
[2019-12-08] MEDS: Flecainide 50 MG Tab PO SCH ×2 (08:47→20:56)
--- NOTE | 2019-12-08 13:36 | PCM.PN ---
- General Info Date of Service: 12/08/19 Admission Dx/Problem (Free Text): Admission Diagnosis/Problem Admission Diagnosis/Problem Aspiration pneumonia Subjective Update: Rusty is doing well. He has no complaints this morning. Appetite is good. Last bowel movement was yesterday. Functional Status: Reports: Pain Controlled - Review of Systems General: Reports: No Symptoms HEENT: Reports: No Symptoms Pulmonary: Reports: No Symptoms Cardiovascular: Reports: No Symptoms Gastrointestinal: Reports: No Symptoms Musculoskeletal: Reports: No Symptoms Skin: Reports: No Symptoms Neurological: Reports: No Symptoms Psychiatric: Reports: No Symptoms - Patient Data Vitals - Most Recent: Last Vital Signs Temp 97.7 F 12/08/19 08:32 Pulse 69 12/08/19 08:32 Resp 16 12/08/19 08:32 BP 108/78 12/08/19 08:32 Pulse Ox 99 12/08/19 08:32 Weight - Most Recent: 190 lb 9.6 oz I&O - Last 24 Hours: Intake & Output 12/07/19 12/08/19 12/08/19 22:59 06:59 14:59 Intake Total 1120 500 200 Output Total 1000 400 Balance 120 100 200 Med Orders - Current: Current Medications Albuterol (Proventil Neb Soln) 2.5 mg NEB Q2H PRN PRN Reason: Dyspnea Last Admin: 12/04/19 08:53 Dose: 2.5 mg Allopurinol (Zyloprim) 100 mg PO DAILY [facility] Last Admin: 12/08/19 08:38 Dose: 100 mg Budesonide (Pulmicort) 0.5 mg NEB BIDRT [facility] Last Admin: 12/08/19 06:54 Dose: 0.5 mg Donepezil HCl (Aricept) 5 mg PO DAILY [facility] Last Admin: 12/08/19 08:38 Dose: 5 mg Ezetimibe (Zetia) 10 mg PO DAILY [facility] Last Admin: 12/08/19 08:40 Dose: 10 mg Flecainide Acetate (Tambocor) 150 mg PO BID [facility] Last Admin: 12/08/19 08:47 Dose: 150 mg Furosemide (Lasix) 20 mg PO DAILY [facility] Last Admin: 12/08/19 08:37 Dose: 20 mg Guaifenesin (Mucinex) 600 mg PO BID [facility] Last Admin: 12/08/19 08:37 Dose: 600 mg Linezolid (Zyvox) 600 mg PO BID [facility] Stop: 12/08/19 21:01 Last Admin: 12/08/19 08:41 Dose: 600 mg Magnesium Oxide (Magnesium Oxide) 400 mg PO DAILY [facility] Last Admin: 12/08/19 08:36 Dose: 400 mg Nystatin (Nystatin Oral Syringe) 500,000 unit PO QID [facility] Stop: 12/15/19 13:01 Last Admin: 12/08/19 12:40 Dose: 500,000 unit Ondansetron HCl (Zofran) 4 mg IVPUSH Q4H PRN PRN Reason: Nausea/Vomiting Last Admin: 11/25/19 22:09 Dose: 4 mg Potassium Chloride (Klor-Con M20) 40 meq PO DAILY [facility] Last Admin: 12/08/19 08:37 Dose: 40 meq Simvastatin (Zocor) 20 mg PO BEDTIME [facility] Last Admin: 12/07/19 21:21 Dose: 20 mg Sodium Chloride (Saline Flush) 10 ml FLUSH ASDIRECTED PRN PRN Reason: Keep Vein Open Last Admin: 11/25/19 15:58 Dose: 10 ml Tamsulosin HCl (Flomax) 0.4 mg PO DAILY [facility] Last Admin: 12/08/19 08:36 Dose: 0.4 mg Discontinued Medications Acetylcysteine (Mucomyst 20%) 800 mg NEB QIDRT [facility] Last Admin: 11/29/19 05:49 Dose: 800 mg Albuterol/Ipratropium (Duoneb 3.0-0.5 Mg/3 Ml) 3 ml NEB ONETIME ONE Stop: 11/25/19 15:22 Last Admin: 11/25/19 15:43 Dose: 3 ml Albuterol/Ipratropium (Duoneb 3.0-0.5 Mg/3 Ml) 3 ml NEB Q6HRRT [facility] Albuterol/Ipratropium (Duoneb 3.0-0.5 Mg/3 Ml) 3 ml NEB Q6HRRT [facility] Last Admin: 11/27/19 09:57 Dose: 3 ml Apixaban (Eliquis) 2.5 mg PO BID [facility] Last Admin: 11/25/19 20:10 Dose: 2.5 mg Diltiazem HCl (Cardizem) 20 mg IVPUSH ONETIME ONE Stop: 11/27/19 14:53 Last Admin: 11/27/19 15:06 Dose: 20 mg Diltiazem HCl (Cardizem) 30 mg IVPUSH ONETIME ONE Stop: 11/27/19 18:35 Last Admin: 11/27/19 18:46 Dose: 30 mg Diltiazem HCl (Cardizem Cd) 120 mg PO DAILY [facility] Last Admin: 11/28/19 08:06 Dose: 120 mg Flecainide Acetate (Tambocor) 100 mg PO BID [facility] Last Admin: 11/27/19 08:43 Dose: 100 mg Flecainide Acetate (Tambocor) 150 mg PO BID [facility] Last Admin: 11/28/19 20:56 Dose: 150 mg Flecainide Acetate (Tambocor) 200 mg PO BID [facility] Last Admin: 12/05/19 20:27 Dose: 200 mg Furosemide (Lasix) 40 mg IVPUSH NOW ONE Stop: 11/26/19 17:01 Last Admin: 11/26/19 17:41 Dose: 40 mg Piperacillin Sod/Tazobactam (Sod 4.5 gm/ Sodium Chloride) 100 mls @ 200 mls/hr IV ONETIME ONE Stop: 11/25/19 16:28 Last Admin: 11/25/19 16:08 Dose: Not Given Piperacillin Sod/Tazobactam (Sod 4.5 gm/ Sodium Chloride) 100 mls @ 200 mls/hr IV ONETIME ONE Stop: 11/25/19 16:35 Last Admin: 11/25/19 16:34 Dose: 200 mls/hr Ceftriaxone Sodium 2 gm/ (Sodium Chloride) 100 mls @ 200 mls/hr IV ONETIME ONE Stop: 11/25/19 16:38 Last Admin: 11/25/19 17:06 Dose: 200 mls/hr Piperacillin Sod/Tazobactam (Sod 4.5 gm/ Sodium Chloride) 100 mls @ 25 mls/hr IV Q8H [facility] Last Admin: 12/01/19 10:09 Dose: 25 mls/hr Sodium Chloride (Normal Saline) 1,000 mls @ 100 mls/hr IV ASDIRECTED [facility] Last Admin: 11/26/19 13:56 Dose: 100 mls/hr Lactated Ringer's (Ringers, Lactated) 500 mls @ 500 mls/hr IV .BOLUS ONE Stop: 11/25/19 21:57 Last Admin: 11/25/19 21:35 Dose: 999 mls/hr Pantoprazole Sodium 80 mg/ (Sodium Chloride) 100 mls @ 8 mls/hr IV Q10H [facility] Last Admin: 11/27/19 06:18 Dose: Not Given Sodium Chloride (Normal Saline) 500 mls @ 999 mls/hr IV .BOLUS ONE Stop: 11/26/19 12:05 Last Admin: 11/26/19 11:47 Dose: Not Given Doxycycline Hyclate 100 mg/ (Sodium Chloride) 100 mls @ 100 mls/hr IV Q12H [facility] Last Admin: 12/01/19 03:35 Dose: 100 mls/hr Sodium Chloride (Normal Saline) 1,000 mls @ 50 mls/hr IV ASDIRECTED [facility] Last Admin: 11/27/19 05:03 Dose: 50 mls/hr Pantoprazole Sodium 80 mg/ (Sodium Chloride) 100 mls @ 8 mls/hr IV Q10H [facility] Last Admin: 11/27/19 02:52 Dose: 8 mls/hr Lactated Ringer's (Ringers, Lactated) 1,000 mls @ 75 mls/hr IV ASDIRECTED [facility] Last Admin: 11/27/19 11:21 Dose: 75 mls/hr Lactated Ringer's (Ringers, Lactated) Confirm Administered Dose 1,000 mls @ as directed .ROUTE .STK-MED ONE Stop: 11/27/19 11:13 Last Admin: 11/27/19 11:23 Dose: Not Given Vancomycin HCl 1 gm/Vancomycin HCl 500 mg/ Sodium Chloride 500 mls @ 250 mls/ hr IV Q24H [facility] Linezolid 600 mg/ Premix 300 mls @ 300 mls/hr IV Q12H [facility] Last Admin: 12/01/19 01:37 Dose: 300 mls/hr Potassium Chloride 10 meq/ (Premix) 100 mls @ 100 mls/hr IV Q1H [facility] Stop: 11/30/19 19:29 Last Admin: 11/30/19 18:55 Dose: 100 mls/hr Sodium Chloride (Normal Saline) 500 mls @ 100 mls/hr IV ASDIRECTED [facility] Last Admin: 11/30/19 20:28 Dose: 100 mls/hr Magnesium Sulfate 4 gm/ Premix 100 mls @ 25 mls/hr IV ONETIME ONE Stop: 12/01/19 08:26 Last Admin: 12/01/19 08:08 Dose: 25 mls/hr Dextrose/Water (Dextrose 5% In Water) 1,000 mls @ 75 mls/hr IV ASDIRECTED [facility] Last Admin: 12/05/19 23:05 Dose: 75 mls/hr Labetalol HCl (Normodyne) 5 mg IVPUSH ONETIME ONE; Protocol Stop: 11/27/19 11:36 Last Admin: 11/27/19 11:43 Dose: 5 mg Linezolid (Zyvox) 600 mg PO BID [facility] Last Admin: 12/02/19 08:57 Dose: 600 mg Metoprolol Tartrate (Lopressor) 5 mg IVPUSH ONETIME ONE Stop: 11/26/19 12:50 Last Admin: 11/26/19 13:32 Dose: 5 mg Metoprolol Tartrate (Lopressor) 5 mg IVPUSH ONETIME ONE Stop: 11/26/19 21:42 Last Admin: 11/26/19 22:03 Dose: 5 mg Ondansetron HCl (Zofran) Confirm Administered Dose 4 mg .ROUTE .STK-MED ONE Stop: 11/25/19 21:57 Last Admin: 11/25/19 22:05 Dose: Not Given Pantoprazole Sodium (Protonix) 40 mg PO DAILY@0700 [facility] Pantoprazole Sodium (Protonix Iv) 80 mg IVPUSH BOLUS ONE Stop: 11/25/19 20:52 Last Admin: 11/25/19 21:21 Dose: 80 mg Pantoprazole Sodium (Protonix Iv) 40 mg IVPUSH BID [facility] Last Admin: 12/02/19 08:55 Dose: 40 mg Potassium Chloride (Klor-Con M20) 20 meq PO Q4H [facility] Stop: 11/30/19 22:31 Last Admin: 11/30/19 22:12 Dose: 20 meq Sodium Phosphate (Neutra-Phos) 250 mg PO ONETIME ONE Stop: 12/01/19 08:26 Last Admin: 12/01/19 08:09 Dose: 250 mg Trazodone HCl (Trazodone) 25 mg PO BEDTIME [facility] Last Admin: 11/28/19 20:58 Dose: 25 mg - Exam Quality Assessment: Supplemental Oxygen General: Alert, Oriented HEENT: Pupils Equal, Mucous Membr. Moist/[place] Neck: Supple Lungs: Clear to Auscultation, Normal Respiratory Effort Cardiovascular: Regular Rate, Regular Rhythm GI/Abdominal Exam: Normal Bowel Sounds, Soft, Non-Tender, No Distention Extremities: Normal Inspection, Normal Range of Motion, Non-Tender, No Pedal Edema Skin: Warm, Dry, Intact Psy/Mental Status: Alert, Normal Affect, Normal Mood Sepsis Event Note - Evaluation Sepsis Screening Result: No Definite Risk - Focused Exam Vital Signs: Vital Signs Temp Pulse Resp BP Pulse Ox Pulse Ox 12/08/19 08:32 97.7 F 69 16 108/78 99 12/08/19 06:54 98 12/08/19 03:20 98.6 F 63 28 H 124/53 L 95 Date Exam was Performed: 12/08/19 Time Exam was Performed: 13:32 - Problem List Review Problem List Initiated/Reviewed/Updated: Yes - Plan Plan:: 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, klebsiella and MRSA Acute on chronic hypoxemic respiratory failure -improved Unspecified pulmonary fibrosis Dysphagia, oropharyngeal Oral thrush -improved Worsening shortness of breath --> CXR on admission with BL infiltrates--> Zosyn and Rocephin in ED--> transitioned to Doxycycline and Zosyn WBC on admission 23--> baseline now Sputum 07/2019 + MRSA--> now 11/26--> + MRSA / Klebsiella / VRE faecium as well as alirio Completed 5 days of doxycycline and 6 days of Zosyn Speech therapy evaluated and still recommending nectar thickened liquids with meals but allowing free water between meals Afebrile Procalcitonin 0.21 on 12/04 demonstrated decreased risk for progression to serious illness PLAN - Linezolid day 10 to complete 10 days due to higher risk of reinfection - Continue CPT - Continue scheduled DuoNeb, Pulmicort and Mucinex - Incentive spirometry - Hold trazodone as long as he is on Linezolid - Monitor bone marrow suppression due to linezolid use - Keep patient on 2L NC - nystatin 4 times daily Atrial fibrillation and flutter, rate controlled Resolved RVR HR 60s' Transferred to ICU 11/27 for Diltiazem drip --> rate controlled with bolus diltiazem and increase in home flecainide dose--> out of ICU As long as he stays on O2 supplementation at 2L his HR is controlled PLAN - Monitor VS -Decrease Flecainide to 150 mg mg BID. Max dose for PAF is 150 mg twice daily, so if possible would like to keep on 300 mg daily - Keep O2 supplementation at 2L Upper GI bleed Hb stable No melena or hematochezia PLAN - Continue Protonix -Recheck CBC tomorrow Chronic kidney disease (CKD), stage III (moderate) Acute kidney injury Volume depletion Hypernatremia Volume depleted on admission 2/2 GI losses (vomiting) Currently euvolemic, but slight decrease in GFR Sodium down from 152 to 143 today PLAN - Monitory urine output - Renally dosed medications - Encourage increasing fluid intake. Allow access to free water between meals. - Encourage good oral hygiene Hypertension -controlled PLAN - Continue home medications PROPHYLAXIS DVT- SCD's due to bleed GI- Protonix CODE STATUS: DNR/DNI DISPOSITION: Plan discharge to [facility] on December 08.
[2019-12-08] MEDS ORDERED: Aluminum Hydroxide/Magnesium Hydroxide/Simethicone Susp 30 ML Cup PO PRN (14:28)
[2019-12-08] MEDS: Ondansetron 4 MG/2 ML SDV IVPUSH PRN (15:02)
[2019-12-08] MEDS: Simvastatin 20 MG Tab PO SCH (20:56)
[2019-12-09] MEDS: Budesonide 0.5 MG/2 ML Neb Susp NEB SCH ×2 (06:25→20:49)
[2019-12-09] MEDS: Ezetimibe 10 MG Tab PO SCH (08:35)
[2019-12-09] MEDS: Nystatin Susp 100,000 Unit/ML 5 ML Oral Syringe PO SCH ×4 (08:35→20:22)
[2019-12-09] MEDS: guaiFENesin 600 MG Tab.ER PO SCH ×2 (08:35→20:22)
[2019-12-09] MEDS: Tamsulosin 0.4 MG Cap.ER PO SCH (08:35)
[2019-12-09] MEDS: Furosemide 20 MG Tab PO SCH (08:35)
[2019-12-09] MEDS: Flecainide 50 MG Tab PO SCH ×2 (08:35→20:21)
[2019-12-09] MEDS: Magnesium Oxide 400 MG Tab PO SCH (08:35)
[2019-12-09] MEDS: Potassium Chloride 20 MEQ Tab.ER PO SCH (08:36)
[2019-12-09] MEDS: Allopurinol 100 MG Tab PO SCH (08:36)
[2019-12-09] MEDS: Donepezil 10 MG Tab PO SCH (08:36)
--- NOTE | 2019-12-09 13:02 | PCM.PN ---
- General Info Date of Service: 12/09/19 Admission Dx/Problem (Free Text): Admission Diagnosis/Problem Admission Diagnosis/Problem Aspiration pneumonia Subjective Update: Patient has no current complaints. He has been accepted at [facility], but they are waiting for a bed to open up. Last bowel movement was this morning. Functional Status: Reports: Pain Controlled - Review of Systems General: Reports: No Symptoms HEENT: Reports: No Symptoms Pulmonary: Reports: No Symptoms Cardiovascular: Reports: No Symptoms Genitourinary: Reports: No Symptoms Psychiatric: Reports: No Symptoms - Patient Data Vitals - Most Recent: Last Vital Signs Temp 97.3 F 12/09/19 07:46 Pulse 74 12/09/19 07:46 Resp 19 12/09/19 07:46 BP 95/51 L 12/09/19 07:46 Pulse Ox 97 12/09/19 07:46 Weight - Most Recent: 191 lb 14.4 oz I&O - Last 24 Hours: Intake & Output 12/08/19 12/09/19 12/09/19 22:59 06:59 14:59 Intake Total 520 400 240 Output Total 225 575 Balance 295 -175 240 Med Orders - Current: Current Medications Al Hydroxide/Mg Hydroxide (Mag-Al Plus) 30 ml PO Q4H PRN PRN Reason: GERD Last Admin: 12/08/19 14:44 Dose: 30 ml Albuterol (Proventil Neb Soln) 2.5 mg NEB Q2H PRN PRN Reason: Dyspnea Last Admin: 12/04/19 08:53 Dose: 2.5 mg Allopurinol (Zyloprim) 100 mg PO DAILY [facility] Last Admin: 12/09/19 08:36 Dose: 100 mg Budesonide (Pulmicort) 0.5 mg NEB BIDRT [facility] Last Admin: 12/09/19 06:25 Dose: 0.5 mg Donepezil HCl (Aricept) 5 mg PO DAILY [facility] Last Admin: 12/09/19 08:36 Dose: 5 mg Ezetimibe (Zetia) 10 mg PO DAILY [facility] Last Admin: 12/09/19 08:35 Dose: 10 mg Flecainide Acetate (Tambocor) 150 mg PO BID [facility] Last Admin: 12/09/19 08:35 Dose: 150 mg Furosemide (Lasix) 20 mg PO DAILY [facility] Last Admin: 12/09/19 08:35 Dose: 20 mg Guaifenesin (Mucinex) 600 mg PO BID [facility] Last Admin: 12/09/19 08:35 Dose: 600 mg Magnesium Oxide (Magnesium Oxide) 400 mg PO DAILY [facility] Last Admin: 12/09/19 08:35 Dose: 400 mg Nystatin (Nystatin Oral Syringe) 500,000 unit PO QID [facility] Stop: 12/15/19 13:01 Last Admin: 12/09/19 12:49 Dose: 500,000 unit Ondansetron HCl (Zofran) 4 mg IVPUSH Q4H PRN PRN Reason: Nausea/Vomiting Last Admin: 12/08/19 15:02 Dose: 4 mg Potassium Chloride (Klor-Con M20) 40 meq PO DAILY [facility] Last Admin: 12/09/19 08:36 Dose: 40 meq Simvastatin (Zocor) 20 mg PO BEDTIME [facility] Last Admin: 12/08/19 20:56 Dose: 20 mg Tamsulosin HCl (Flomax) 0.4 mg PO DAILY [facility] Last Admin: 12/09/19 08:35 Dose: 0.4 mg Discontinued Medications Acetylcysteine (Mucomyst 20%) 800 mg NEB QIDRT [facility] Last Admin: 11/29/19 05:49 Dose: 800 mg Albuterol/Ipratropium (Duoneb 3.0-0.5 Mg/3 Ml) 3 ml NEB ONETIME ONE Stop: 11/25/19 15:22 Last Admin: 11/25/19 15:43 Dose: 3 ml Albuterol/Ipratropium (Duoneb 3.0-0.5 Mg/3 Ml) 3 ml NEB Q6HRRT [facility] Albuterol/Ipratropium (Duoneb 3.0-0.5 Mg/3 Ml) 3 ml NEB Q6HRRT [facility] Last Admin: 11/27/19 09:57 Dose: 3 ml Apixaban (Eliquis) 2.5 mg PO BID [facility] Last Admin: 11/25/19 20:10 Dose: 2.5 mg Diltiazem HCl (Cardizem) 20 mg IVPUSH ONETIME ONE Stop: 11/27/19 14:53 Last Admin: 11/27/19 15:06 Dose: 20 mg Diltiazem HCl (Cardizem) 30 mg IVPUSH ONETIME ONE Stop: 11/27/19 18:35 Last Admin: 11/27/19 18:46 Dose: 30 mg Diltiazem HCl (Cardizem Cd) 120 mg PO DAILY [facility] Last Admin: 11/28/19 08:06 Dose: 120 mg Flecainide Acetate (Tambocor) 100 mg PO BID [facility] Last Admin: 11/27/19 08:43 Dose: 100 mg Flecainide Acetate (Tambocor) 150 mg PO BID [facility] Last Admin: 11/28/19 20:56 Dose: 150 mg Flecainide Acetate (Tambocor) 200 mg PO BID [facility] Last Admin: 12/05/19 20:27 Dose: 200 mg Furosemide (Lasix) 40 mg IVPUSH NOW ONE Stop: 11/26/19 17:01 Last Admin: 11/26/19 17:41 Dose: 40 mg Piperacillin Sod/Tazobactam (Sod 4.5 gm/ Sodium Chloride) 100 mls @ 200 mls/hr IV ONETIME ONE Stop: 11/25/19 16:28 Last Admin: 11/25/19 16:08 Dose: Not Given Piperacillin Sod/Tazobactam (Sod 4.5 gm/ Sodium Chloride) 100 mls @ 200 mls/hr IV ONETIME ONE Stop: 11/25/19 16:35 Last Admin: 11/25/19 16:34 Dose: 200 mls/hr Ceftriaxone Sodium 2 gm/ (Sodium Chloride) 100 mls @ 200 mls/hr IV ONETIME ONE Stop: 11/25/19 16:38 Last Admin: 11/25/19 17:06 Dose: 200 mls/hr Piperacillin Sod/Tazobactam (Sod 4.5 gm/ Sodium Chloride) 100 mls @ 25 mls/hr IV Q8H [facility] Last Admin: 12/01/19 10:09 Dose: 25 mls/hr Sodium Chloride (Normal Saline) 1,000 mls @ 100 mls/hr IV ASDIRECTED [facility] Last Admin: 11/26/19 13:56 Dose: 100 mls/hr Lactated Ringer's (Ringers, Lactated) 500 mls @ 500 mls/hr IV .BOLUS ONE Stop: 11/25/19 21:57 Last Admin: 11/25/19 21:35 Dose: 999 mls/hr Pantoprazole Sodium 80 mg/ (Sodium Chloride) 100 mls @ 8 mls/hr IV Q10H [facility] Last Admin: 11/27/19 06:18 Dose: Not Given Sodium Chloride (Normal Saline) 500 mls @ 999 mls/hr IV .BOLUS ONE Stop: 11/26/19 12:05 Last Admin: 11/26/19 11:47 Dose: Not Given Doxycycline Hyclate 100 mg/ (Sodium Chloride) 100 mls @ 100 mls/hr IV Q12H [facility] Last Admin: 12/01/19 03:35 Dose: 100 mls/hr Sodium Chloride (Normal Saline) 1,000 mls @ 50 mls/hr IV ASDIRECTED [facility] Last Admin: 11/27/19 05:03 Dose: 50 mls/hr Pantoprazole Sodium 80 mg/ (Sodium Chloride) 100 mls @ 8 mls/hr IV Q10H [facility] Last Admin: 11/27/19 02:52 Dose: 8 mls/hr Lactated Ringer's (Ringers, Lactated) 1,000 mls @ 75 mls/hr IV ASDIRECTED [facility] Last Admin: 11/27/19 11:21 Dose: 75 mls/hr Lactated Ringer's (Ringers, Lactated) Confirm Administered Dose 1,000 mls @ as directed .ROUTE .STK-MED ONE Stop: 11/27/19 11:13 Last Admin: 11/27/19 11:23 Dose: Not Given Vancomycin HCl 1 gm/Vancomycin HCl 500 mg/ Sodium Chloride 500 mls @ 250 mls/ hr IV Q24H [facility] Linezolid 600 mg/ Premix 300 mls @ 300 mls/hr IV Q12H [facility] Last Admin: 12/01/19 01:37 Dose: 300 mls/hr Potassium Chloride 10 meq/ (Premix) 100 mls @ 100 mls/hr IV Q1H [facility] Stop: 11/30/19 19:29 Last Admin: 11/30/19 18:55 Dose: 100 mls/hr Sodium Chloride (Normal Saline) 500 mls @ 100 mls/hr IV ASDIRECTED [facility] Last Admin: 11/30/19 20:28 Dose: 100 mls/hr Magnesium Sulfate 4 gm/ Premix 100 mls @ 25 mls/hr IV ONETIME ONE Stop: 12/01/19 08:26 Last Admin: 02/23/20 08:08 Dose: 25 mls/hr Dextrose/Water (Dextrose 5% In Water) 1,000 mls @ 75 mls/hr IV ASDIRECTED [facility] Last Admin: 12/05/19 23:05 Dose: 75 mls/hr Labetalol HCl (Normodyne) 5 mg IVPUSH ONETIME ONE; Protocol Stop: 11/27/19 11:36 Last Admin: 11/27/19 11:43 Dose: 5 mg Linezolid (Zyvox) 600 mg PO BID [facility] Last Admin: 12/02/19 08:57 Dose: 600 mg Linezolid (Zyvox) 600 mg PO BID [facility] Stop: 12/08/19 21:01 Last Admin: 12/08/19 20:56 Dose: 600 mg Metoprolol Tartrate (Lopressor) 5 mg IVPUSH ONETIME ONE Stop: 11/26/19 12:50 Last Admin: 11/26/19 13:32 Dose: 5 mg Metoprolol Tartrate (Lopressor) 5 mg IVPUSH ONETIME ONE Stop: 11/26/19 21:42 Last Admin: 11/26/19 22:03 Dose: 5 mg Ondansetron HCl (Zofran) Confirm Administered Dose 4 mg .ROUTE .STK-MED ONE Stop: 11/25/19 21:57 Last Admin: 11/25/19 22:05 Dose: Not Given Pantoprazole Sodium (Protonix) 40 mg PO DAILY@0700 [facility] Pantoprazole Sodium (Protonix Iv) 80 mg IVPUSH BOLUS ONE Stop: 11/25/19 20:52 Last Admin: 11/25/19 21:21 Dose: 80 mg Pantoprazole Sodium (Protonix Iv) 40 mg IVPUSH BID [facility] Last Admin: 12/02/19 08:55 Dose: 40 mg Potassium Chloride (Klor-Con M20) 20 meq PO Q4H [facility] Stop: 11/30/19 22:31 Last Admin: 11/30/19 22:12 Dose: 20 meq Sodium Chloride (Saline Flush) 10 ml FLUSH ASDIRECTED PRN PRN Reason: Keep Vein Open Last Admin: 11/25/19 15:58 Dose: 10 ml Sodium Phosphate (Neutra-Phos) 250 mg PO ONETIME ONE Stop: 12/01/19 08:26 Last Admin: 12/01/19 08:09 Dose: 250 mg Trazodone HCl (Trazodone) 25 mg PO BEDTIME [facility] Last Admin: 11/28/19 20:58 Dose: 25 mg - Exam Quality Assessment: Supplemental Oxygen General: Alert, Oriented HEENT: Pupils Equal, Mucous Membr. Moist/[place] Neck: Supple Lungs: Clear to Auscultation, Normal Respiratory Effort Cardiovascular: Regular Rate, Regular Rhythm GI/Abdominal Exam: Normal Bowel Sounds, Soft, Non-Tender, No Organomegaly, No Distention Back Exam: Normal Inspection Extremities: Normal Inspection, Normal Range of Motion, Non-Tender, No Pedal Edema Skin: Warm, Dry, Intact Neurological: No New Focal Deficit Psy/Mental Status: Alert, Normal Affect, Normal Mood Sepsis Event Note - Evaluation Sepsis Screening Result: No Definite Risk - Focused Exam Vital Signs: Vital Signs Temp Pulse Resp BP Pulse Ox Pulse Ox 12/09/19 07:46 97.3 F 74 19 95/51 L 97 12/09/19 06:29 96 12/09/19 06:12 97.9 F 75 24 H 110/55 L 98 Date Exam was Performed: 12/09/19 Time Exam was Performed: 15:32 - Problem List Review Problem List Initiated/Reviewed/Updated: Yes - My Orders Last 24 Hours: My Active Orders 12/08/19 14:28 Alum Hydrox/Mag Hydrox/Simeth [Mag-Al Plus] 30 ml PO Q4H PRN 12/09/19 12:54 Communication Order [RC] DAILY - Plan Plan:: 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, klebsiella and MRSA Acute on chronic hypoxemic respiratory failure -improved Unspecified pulmonary fibrosis Dysphagia, oropharyngeal Oral thrush -improved Worsening shortness of breath --> CXR on admission with BL infiltrates--> Zosyn and Rocephin in ED--> transitioned to Doxycycline and Zosyn WBC on admission 23--> baseline now Sputum 07/2019 + MRSA--> now 11/26--> + MRSA / Klebsiella / VRE faecium as well as alirio Completed 5 days of doxycycline and 6 days of Zosyn Speech therapy evaluated and still recommending nectar thickened liquids with meals but allowing free water between meals Afebrile Procalcitonin 0.21 on 12/04 demonstrated decreased risk for progression to serious illness PLAN - Linezolid - completed 10 days due to higher risk of reinfection - Continue CPT - Continue scheduled DuoNeb, Pulmicort and Mucinex - Incentive spirometry - Hold trazodone as long as he is on Linezolid - Monitor bone marrow suppression due to linezolid use - Keep patient on 2L NC - nystatin 4 times daily for a total of 10 days. 02/15 Atrial fibrillation and flutter, rate controlled Resolved RVR HR 70s' Transferred to ICU 11/27 for Diltiazem drip --> rate controlled with bolus diltiazem and increase in home flecainide dose--> out of ICU As long as he stays on O2 supplementation at 2L his HR is controlled PLAN - Monitor VS -Decrease Flecainide to 150 mg mg BID. - Keep O2 supplementation at 2L Upper GI bleed Hb stable No melena or hematochezia PLAN - Continue Protonix -Recheck CBC tomorrow Chronic kidney disease (CKD), stage III (moderate) Acute kidney injury Volume depletion Hypernatremia Volume depleted on admission 2/2 GI losses (vomiting) Currently euvolemic, but slight decrease in GFR Sodium down from 152 to 143 today PLAN - Monitory urine output - Renally dosed medications - Encourage increasing fluid intake. Allow access to free water between meals. - Encourage good oral hygiene Hypertension -controlled PLAN - Continue home medications PROPHYLAXIS DVT- SCD's due to bleed GI- Protonix CODE STATUS: DNR/DNI DISPOSITION: Plan discharge to [facility] tomorrow.
[2019-12-09] MEDS: Simvastatin 20 MG Tab PO SCH (20:22)
[2019-12-10 04:37] VITALS: PULSE 80
[2019-12-10] MEDS: Budesonide 0.5 MG/2 ML Neb Susp NEB SCH (06:39)
[2019-12-10] MEDS: Donepezil 10 MG Tab PO SCH (09:25)
[2019-12-10] MEDS: Allopurinol 100 MG Tab PO SCH (09:26)
[2019-12-10] MEDS: Flecainide 50 MG Tab PO SCH (09:28)
[2019-12-10] MEDS: Furosemide 20 MG Tab PO SCH (09:30)
[2019-12-10] MEDS: Ezetimibe 10 MG Tab PO SCH (09:30)
[2019-12-10] MEDS: guaiFENesin 600 MG Tab.ER PO SCH (09:31)
--- NOTE | 2019-12-10 09:32 | PCM.DCSUM1 ---
Discharge Summary - Hospital Course HPI Initial Comments: Family was not available at time of interview, therefore most of the history was obtained through emergency room providers notes: 89-year-old male who returns to the emergency department by EMS after being seen yesterday with abdominal pain and constipation. Patient was sent home with options for treatment of his constipation. At this morning at approximately 530 he had taken MiraLAX and prune juice with his breakfast. At 6 :00 he had an emesis that was brown liquid. denies seeing blood or coffee- ground emesis. reported that he had 3 small bowel movements this morning after breakfast. Patient after breakfast then decided to take a nap. His noted that he was spitting brown up and during the nap it was on his pillow and face. At that time she checked his oxygen saturation and it was between 70 and 79%. In the emergency room patient denied any abdominal pain. I did speak with him also personally and he did not complain of any pain. When I interviewed him he was resting comfortably and wearing oxygen via nasal cannula. Patient apparently has been having episodes of emesis intermittently for the last week. CXR on the emergency room showed bilateral infiltrates. Diagnosis: Stroke: No - Discharge Data Discharge Date: 12/10/19 Discharge Disposition: DC/Tfer to SNF 03 Condition: Stable - Referral to Home Health Primary Care Physician: Toribio Franco MD - Patient Summary/Data Consults: Consultations 11/27/19 11:54 STRUCTURAL TEST ENGINEER Evaluation and Treatment [CONS] Routine 11/28/19 10:26 OT Evaluation and Treatment [CONS] Routine PT Evaluation and Treatment [CONS] Routine Hospital Course: Patient was admitted and during the first night had a significant aspiration event of coffee-ground emesis. He had worsening shortness of breath over the next 2 days, developed A. fib with RVR, and bilateral infiltrates. Patient was placed on Zosyn and Rocephin which was transitioned to doxycycline and Zosyn. Thin sputum on 11/26 was positive for MRSA, Klebsiella, and VRE 3 cm Faecium. Patient was transitioned to linezolid. During this time he was continued on DuoNeb, Pulmicort, and Mucinex. He had another episode of RVR which required diltiazem drip in the ICU. Patient appeared to do well as long as he continued on his O2 supplementation at 2 L and his flecainide initially was increased to 200 mg twice daily. Over the next several days patient was transferred back to the floor, finished a 10-day course of linezolid. Patient did develop oral thrush and was started on nystatin. We were able to wean him down to flecainide 150 mg twice daily. We did keep him on 2 L FiO2 for cardiac protection. Patient was back to baseline, except recommendations were for him to go to a fci facility. Patient was ultimately transferred to [facility]. - Patient Instructions Diet: Heart Healthy Diet Activity: As Tolerated Driving: Do Not Drive Showering/Bathing: May Shower Other/Special Instructions: Follow up with PCP in 1 week. - Discharge Plan *PRESCRIPTION DRUG MONITORING PROGRAM REVIEWED*: No *COPY OF PRESCRIPTION DRUG MONITORING REPORT IN PATIENT GET: No Prescriptions/Med Rec: Flecainide [Tambocor] 150 mg PO BID #180 tablet Magnesium Oxide 400 mg PO DAILY #30 tablet Nystatin [Nystatin Oral Syringe] 500,000 unit PO QID #20 syringe Ondansetron [Zofran] 4 mg IVPUSH Q4H PRN #30 vial PRN Reason: Nausea/Vomiting Potassium Chloride [Klor-Con M20] 40 meq PO DAILY #60 tab.er Home Medications: Home Meds Ezetimibe [Zetia] 10 mg PO DAILY 02/27/15 [History] Omeprazole 20 mg PO DAILY 02/27/15 [History] Pravastatin [Pravachol] 40 mg PO DAILY 02/27/15 [History] Budesonide [Pulmicort] 0.5 mg NEB BID 11/20/16 [History] Umeclidinium [place] [Incruse Ellipta*] 62.5 mcg INH DAILY 12/27/16 [History] guaiFENesin [Mucinex] 600 mg PO BID 10/12/18 [History] Tamsulosin [Flomax] 0.4 mg PO DAILY 11/14/18 [History] traZODone HCl [Trazodone HCl] 25 mg PO BEDTIME 02/26/19 [History] allopurinoL [Zyloprim] 100 mg PO DAILY 07/21/19 [History] Albuterol/Ipratropium [DuoNeb 3.0-0.5 MG/3 ML] 3 ml NEB Q4HR PRN 11/25/19 [ History] Donepezil [Aricept] 5 mg PO DAILY 11/25/19 [History] Furosemide [Lasix] 20 mg PO DAILY 11/25/19 [History] Albuterol Sulfate [Albuterol Sulfate Hfa] 2 inhalation INH QID 11/27/19 [History ] Flecainide [Tambocor] 150 mg PO BID #180 tablet 12/10/19 [Rx] Magnesium Oxide 400 mg PO DAILY #30 tablet 12/10/19 [Rx] Nystatin [Nystatin Oral Syringe] 500,000 unit PO QID #20 syringe 12/10/19 [Rx] Ondansetron [Zofran] 4 mg IVPUSH Q4H PRN #30 vial 12/10/19 [Rx] Potassium Chloride [Klor-Con M20] 40 meq PO DAILY #60 tab.er 12/10/19 [Rx] Oxygen Therapy Mode: Nasal Cannula Patient Handouts: Sepsis, Adult Forms: ED Department Discharge Referrals: Toribio Franco MD [Primary Care Provider] - 12/19/19 7:45 am (Please follow up with Dr. Franco on December 18 at 0745am.) - Discharge Summary/Plan Comment DC Time >30 min.: Yes Discharge Summary/Plan Comment: Discharged [facility] in stable condition. Follow-up with primary care provider within a week. - General Info Date of Service: 12/10/19 Admission Dx/Problem (Free Text: Admission Diagnosis/Problem Admission Diagnosis/Problem Aspiration pneumonia Subjective Update: Bryan is doing well. He has no specific complaints. Functional Status: Reports: Pain Controlled - Review of Systems General: Reports: No Symptoms HEENT: Reports: No Symptoms Pulmonary: Reports: No Symptoms Cardiovascular: Reports: No Symptoms Gastrointestinal: Reports: No Symptoms Musculoskeletal: Reports: No Symptoms - Patient Data Vitals - Most Recent: Last Vital Signs Temp 98.0 F 12/10/19 06:45 Pulse 80 12/10/19 04:17 Resp 16 12/10/19 04:17 BP 116/51 L 12/10/19 04:17 Pulse Ox 97 12/10/19 06:41 Weight - Most Recent: 193 lb 12.8 oz I&O - Last 24 hours: Intake & Output 12/09/19 12/10/19 12/10/19 22:59 06:59 14:59 Intake Total 675 300 Output Total 220 300 Balance 455 0 Med Orders - Current: Current Medications Al Hydroxide/Mg Hydroxide (Mag-Al Plus) 30 ml PO Q4H PRN PRN Reason: GERD Last Admin: 12/08/19 14:44 Dose: 30 ml Albuterol (Proventil Neb Soln) 2.5 mg NEB Q2H PRN PRN Reason: Dyspnea Last Admin: 12/04/19 08:53 Dose: 2.5 mg Allopurinol (Zyloprim) 100 mg PO DAILY [facility] Last Admin: 12/09/19 08:36 Dose: 100 mg Budesonide (Pulmicort) 0.5 mg NEB BIDRT [facility] Last Admin: 12/10/19 06:39 Dose: 0.5 mg Donepezil HCl (Aricept) 5 mg PO DAILY [facility] Last Admin: 12/09/19 08:36 Dose: 5 mg Ezetimibe (Zetia) 10 mg PO DAILY [facility] Last Admin: 12/09/19 08:35 Dose: 10 mg Flecainide Acetate (Tambocor) 150 mg PO BID [facility] Last Admin: 12/09/19 20:21 Dose: 150 mg Furosemide (Lasix) 20 mg PO DAILY [facility] Last Admin: 12/09/19 08:35 Dose: 20 mg Guaifenesin (Mucinex) 600 mg PO BID [facility] Last Admin: 12/09/19 20:22 Dose: 600 mg Magnesium Oxide (Magnesium Oxide) 400 mg PO DAILY [facility] Last Admin: 12/09/19 08:35 Dose: 400 mg Nystatin (Nystatin Oral Syringe) 500,000 unit PO QID [facility] Stop: 12/15/19 13:01 Last Admin: 12/09/19 20:22 Dose: 500,000 unit Ondansetron HCl (Zofran) 4 mg IVPUSH Q4H PRN PRN Reason: Nausea/Vomiting Last Admin: 12/08/19 15:02 Dose: 4 mg Potassium Chloride (Klor-Con M20) 40 meq PO DAILY [facility] Last Admin: 12/09/19 08:36 Dose: 40 meq Simvastatin (Zocor) 20 mg PO BEDTIME [facility] Last Admin: 12/09/19 20:22 Dose: 20 mg Tamsulosin HCl (Flomax) 0.4 mg PO DAILY [facility] Last Admin: 12/09/19 08:35 Dose: 0.4 mg Discontinued Medications Acetylcysteine (Mucomyst 20%) 800 mg NEB QIDRT [facility] Last Admin: 11/29/19 05:49 Dose: 800 mg Albuterol/Ipratropium (Duoneb 3.0-0.5 Mg/3 Ml) 3 ml NEB ONETIME ONE Stop: 11/25/19 15:22 Last Admin: 11/25/19 15:43 Dose: 3 ml Albuterol/Ipratropium (Duoneb 3.0-0.5 Mg/3 Ml) 3 ml NEB Q6HRRT [facility] Albuterol/Ipratropium (Duoneb 3.0-0.5 Mg/3 Ml) 3 ml NEB Q6HRRT [facility] Last Admin: 11/27/19 09:57 Dose: 3 ml Apixaban (Eliquis) 2.5 mg PO BID [facility] Last Admin: 11/25/19 20:10 Dose: 2.5 mg Diltiazem HCl (Cardizem) 20 mg IVPUSH ONETIME ONE Stop: 11/27/19 14:53 Last Admin: 11/27/19 15:06 Dose: 20 mg Diltiazem HCl (Cardizem) 30 mg IVPUSH ONETIME ONE Stop: 11/27/19 18:35 Last Admin: 11/27/19 18:46 Dose: 30 mg Diltiazem HCl (Cardizem Cd) 120 mg PO DAILY [facility] Last Admin: 11/28/19 08:06 Dose: 120 mg Flecainide Acetate (Tambocor) 100 mg PO BID [facility] Last Admin: 11/27/19 08:43 Dose: 100 mg Flecainide Acetate (Tambocor) 150 mg PO BID [facility] Last Admin: 11/28/19 20:56 Dose: 150 mg Flecainide Acetate (Tambocor) 200 mg PO BID [facility] Last Admin: 12/05/19 20:27 Dose: 200 mg Furosemide (Lasix) 40 mg IVPUSH NOW ONE Stop: 11/26/19 17:01 Last Admin: 11/26/19 17:41 Dose: 40 mg Piperacillin Sod/Tazobactam (Sod 4.5 gm/ Sodium Chloride) 100 mls @ 200 mls/hr IV ONETIME ONE Stop: 11/25/19 16:28 Last Admin: 11/25/19 16:08 Dose: Not Given Piperacillin Sod/Tazobactam (Sod 4.5 gm/ Sodium Chloride) 100 mls @ 200 mls/hr IV ONETIME ONE Stop: 11/25/19 16:35 Last Admin: 11/25/19 16:34 Dose: 200 mls/hr Ceftriaxone Sodium 2 gm/ (Sodium Chloride) 100 mls @ 200 mls/hr IV ONETIME ONE Stop: 11/25/19 16:38 Last Admin: 11/25/19 17:06 Dose: 200 mls/hr Piperacillin Sod/Tazobactam (Sod 4.5 gm/ Sodium Chloride) 100 mls @ 25 mls/hr IV Q8H [facility] Last Admin: 12/01/19 10:09 Dose: 25 mls/hr Sodium Chloride (Normal Saline) 1,000 mls @ 100 mls/hr IV ASDIRECTED [facility] Last Admin: 11/26/19 13:56 Dose: 100 mls/hr Lactated Ringer's (Ringers, Lactated) 500 mls @ 500 mls/hr IV .BOLUS ONE Stop: 11/25/19 21:57 Last Admin: 11/25/19 21:35 Dose: 999 mls/hr Pantoprazole Sodium 80 mg/ (Sodium Chloride) 100 mls @ 8 mls/hr IV Q10H [facility] Last Admin: 11/27/19 06:18 Dose: Not Given Sodium Chloride (Normal Saline) 500 mls @ 999 mls/hr IV .BOLUS ONE Stop: 11/26/19 12:05 Last Admin: 11/26/19 11:47 Dose: Not Given Doxycycline Hyclate 100 mg/ (Sodium Chloride) 100 mls @ 100 mls/hr IV Q12H [facility] Last Admin: 12/01/19 03:35 Dose: 100 mls/hr Sodium Chloride (Normal Saline) 1,000 mls @ 50 mls/hr IV ASDIRECTED [facility] Last Admin: 11/27/19 05:03 Dose: 50 mls/hr Pantoprazole Sodium 80 mg/ (Sodium Chloride) 100 mls @ 8 mls/hr IV Q10H [facility] Last Admin: 11/27/19 02:52 Dose: 8 mls/hr Lactated Ringer's (Ringers, Lactated) 1,000 mls @ 75 mls/hr IV ASDIRECTED [facility] Last Admin: 11/27/19 11:21 Dose: 75 mls/hr Lactated Ringer's (Ringers, Lactated) Confirm Administered Dose 1,000 mls @ as directed .ROUTE .STK-MED ONE Stop: 11/27/19 11:13 Last Admin: 11/27/19 11:23 Dose: Not Given Vancomycin HCl 1 gm/Vancomycin HCl 500 mg/ Sodium Chloride 500 mls @ 250 mls/ hr IV Q24H ANIKA Linezolid 600 mg/ Premix 300 mls @ 300 mls/hr IV Q12H [facility] Last Admin: 12/01/19 01:37 Dose: 300 mls/hr Potassium Chloride 10 meq/ (Premix) 100 mls @ 100 mls/hr IV Q1H [facility] Stop: 11/30/19 19:29 Last Admin: 11/30/19 18:55 Dose: 100 mls/hr Sodium Chloride (Normal Saline) 500 mls @ 100 mls/hr IV ASDIRECTED [facility] Last Admin: 11/30/19 20:28 Dose: 100 mls/hr Magnesium Sulfate 4 gm/ Premix 100 mls @ 25 mls/hr IV ONETIME ONE Stop: 12/01/19 08:26 Last Admin: 12/01/19 08:08 Dose: 25 mls/hr Dextrose/Water (Dextrose 5% In Water) 1,000 mls @ 75 mls/hr IV ASDIRECTED [facility] Last Admin: 12/05/19 23:05 Dose: 75 mls/hr Labetalol HCl (Normodyne) 5 mg IVPUSH ONETIME ONE; Protocol Stop: 11/27/19 11:36 Last Admin: 11/27/19 11:43 Dose: 5 mg Linezolid (Zyvox) 600 mg PO BID [facility] Last Admin: 12/02/19 08:57 Dose: 600 mg Linezolid (Zyvox) 600 mg PO BID [facility] Stop: 12/08/19 21:01 Last Admin: 12/08/19 20:56 Dose: 600 mg Metoprolol Tartrate (Lopressor) 5 mg IVPUSH ONETIME ONE Stop: 11/26/19 12:50 Last Admin: 11/26/19 13:32 Dose: 5 mg Metoprolol Tartrate (Lopressor) 5 mg IVPUSH ONETIME ONE Stop: 11/26/19 21:42 Last Admin: 11/26/19 22:03 Dose: 5 mg Ondansetron HCl (Zofran) Confirm Administered Dose 4 mg .ROUTE .STK-MED ONE Stop: 11/25/19 21:57 Last Admin: 11/25/19 22:05 Dose: Not Given Pantoprazole Sodium (Protonix) 40 mg PO DAILY@0700 [facility] Pantoprazole Sodium (Protonix Iv) 80 mg IVPUSH BOLUS ONE Stop: 11/25/19 20:52 Last Admin: 11/25/19 21:21 Dose: 80 mg Pantoprazole Sodium (Protonix Iv) 40 mg IVPUSH BID [facility] Last Admin: 12/02/19 08:55 Dose: 40 mg Potassium Chloride (Klor-Con M20) 20 meq PO Q4H [facility] Stop: 11/30/19 22:31 Last Admin: 11/30/19 22:12 Dose: 20 meq Sodium Chloride (Saline Flush) 10 ml FLUSH ASDIRECTED PRN PRN Reason: Keep Vein Open Last Admin: 11/25/19 15:58 Dose: 10 ml Sodium Phosphate (Neutra-Phos) 250 mg PO ONETIME ONE Stop: 12/01/19 08:26 Last Admin: 12/01/19 08:09 Dose: 250 mg Trazodone HCl (Trazodone) 25 mg PO BEDTIME [facility] Last Admin: 11/28/19 20:58 Dose: 25 mg - Exam Quality Assessment: Reports: Supplemental Oxygen General: Reports: Alert, Oriented HEENT: Reports: Pupils Equal, Mucous Membr. Moist/[place] Neck: Reports: Supple Lungs: Reports: Clear to Auscultation, Normal Respiratory Effort Cardiovascular: Reports: Regular Rate, Regular Rhythm GI/Abdominal Exam: Normal Bowel Sounds, Soft, Non-Tender, No Organomegaly, No Distention, No Abnormal Bruit, No Mass Back Exam: Reports: Normal Inspection Extremities: Normal Inspection, Normal Range of Motion, Non-Tender, No Pedal Edema, Normal Capillary Refill Skin: Reports: Warm, Dry, Intact Psy/Mental Status: Reports: Alert, Normal Affect, Normal Mood
[2019-12-10] MEDS: Tamsulosin 0.4 MG Cap.ER PO SCH (09:33)
[2019-12-10] MEDS: Magnesium Oxide 400 MG Tab PO SCH (09:34)
[2019-12-10] MEDS: Potassium Chloride 20 MEQ Tab.ER PO SCH (09:34)
[2019-12-10] MEDS: Nystatin Susp 100,000 Unit/ML 5 ML Oral Syringe PO SCH (09:37)
[2019-12-10 10:06] VITALS: BP 111/48
== END 2019-12-10 13:05 | DRG 177 ==
LOC: JD.ED 14:42 → JD.MS 17:32 → JD.ICU 11-27 19:04 → JD.MS 11-29 17:40
PROVIDERS: ADMIT Family Medicine; ATTEND Family Medicine
DX: J69.0 Pneumonitis due to inhalation of food and vomit (principal); R09.02 Hypoxemia; J96.21 Acute and chronic respiratory failure with hypoxia; N17.9 Acute kidney failure, unspecified; B37.0 Candidal stomatitis; I48.92 Unspecified atrial flutter; K92.2 Gastrointestinal hemorrhage, unspecified; E87.0 Hyperosmolality and hypernatremia; Z16.21 Resistance to vancomycin; K11.9 Disease of salivary gland, unspecified; Z66 Do not resuscitate; Z86.14 Personal history of Methicillin resistant Staphylococcus aureus infection; E87.6 Hypokalemia; H54.7 Unspecified visual loss; H91.90 Unspecified hearing loss, unspecified ear; I48.91 Unspecified atrial fibrillation; E78.00 Pure hypercholesterolemia, unspecified; K21.9 Gastro-esophageal reflux disease without esophagitis; I12.9 Hypertensive chronic kidney disease with stage 1 through stage 4 chronic kidney disease, or unspecified chronic kidney disease; B96.1 Klebsiella pneumoniae [K. pneumoniae] as the cause of diseases classified elsewhere; N18.3 Chronic kidney disease, stage 3 (moderate); M19.90 Unspecified osteoarthritis, unspecified site; Z85.118 Personal history of other malignant neoplasm of bronchus and lung; Z87.891 Personal history of nicotine dependence; B95.62 Methicillin resistant Staphylococcus aureus infection as the cause of diseases classified elsewhere; J84.10 Pulmonary fibrosis, unspecified; B96.89 Other specified bacterial agents as the cause of diseases classified elsewhere; M10.9 Gout, unspecified; Z79.51 Long term (current) use of inhaled steroids; Z79.01 Long term (current) use of anticoagulants; Z99.81 Dependence on supplemental oxygen; Z79.899 Other long term (current) drug therapy; K59.00 Constipation, unspecified; R10.10 Upper abdominal pain, unspecified; I13.0 Hypertensive heart and chronic kidney disease with heart failure and stage 1 through stage 4 chronic kidney disease, or unspecified chronic kidney disease; I50.9 Heart failure, unspecified; J44.9 Chronic obstructive pulmonary disease, unspecified; N40.0 Benign prostatic hyperplasia without lower urinary tract symptoms
CPT/HCPCS: 36415 ×2; 71045; 71046; 74177; 80053 ×2; 81001; 83605; 83690; 83880; 84484; 85007; 85025; 85027; 87040 ×2; 93005; 94640; 96361 ×2; 96365; 96367; 96374; 96375; 99284; 99285; J0696; J1170; J2405; J2543; J7030; J7050 ×2; Q9963; Q9967; 51702; 71250; 71250-26; 80048; 83735; 84100; 84145; 85014; 85018; 87070; 87077; 87186; 87205; 92526-GN; 92610-GN; 94760; 94761; 97110-GO; 97110-GP; 97116-GP; 97161-GP; 97162-GP; 97166-GO; 97167-GO; 97530-GO; 97530-GP; 97535-GO; 99223; 99231; 99232; 99239; A9270-GY; C9113; J1940; J2020; J3475; J3480; J3490; J7040; J7060; J7120; J7620-GY